=== PATIENT | male | born 1955 | race Caucasian/White ===

== ENCOUNTER 2022-06-12 12:00 | Inpatient (IN) ==
[2022-06-12] MEDS ORDERED: ACETAMINOPHEN 500 MG TAB PO STA (12:27)
[2022-06-12] MEDS ORDERED: CEFEPIME 2,000 MG/20 ML VIAL IV STA (12:27)
[2022-06-12] MEDS ORDERED: ALBUTEROL HFA 8 GM INHALER INH ONE (12:28)
[2022-06-12] MEDS ORDERED: SODIUM CHLORIDE 0.9% 1000ML 500 ML IV SCH (12:30)
--- NOTE | 2022-06-12 12:37 | Emergency Department Note ---
Impression & Plan SOB (shortness of breath), Precordial chest pain, Cough, Body aches, Elevated troponin ED Provider Note NAME: DIMAS ERVIN AGE: 66 SEX: M : 1955 ARRIVES VIA: Ambulance INFORMANT: [Patient] ED PROVIDER(S): [Tone Mi MD] CHIEF COMPLAINT: Illness HISTORY OF PRESENT ILLNESS: This HPI was obtained with the help of the translation line services. The patient is a 66-year-old male who has had 2 days of fever, a sore throat, nasal congestion and coughing. He has had some nausea and some muscle aches and some anterior chest discomfort. The pain in the chest has been mild but constant. Patient has noticed some shortness of breath especially when trying to lay flat. The patient thinks he was exposed to COVID through his son-in-law, the patient though had a recent home test run that was negative. The patient states that his temperature has been up to 102 F. He denies having any lung or heart disease previously diagnosed. He does do peritoneal dialysis. He did dialysis this morning and his fluid was very clear. He has no abdominal pain. He does not make any urine. REVIEW OF SYSTEMS: See HPI for pertinent positives and negatives. A total of ten systems were reviewed and were otherwise negative. PMHx/PSHx: See Below SOCIAL HISTORY: See Below. PHYSICAL EXAM: GENERAL: Patient is in no acute distress. HEENT: No acute trauma, normocephalic atraumatic, mucous membranes moist, no nasal congestion, no scleral icterus. NECK: No stridor, no adenopathy, no meningismus, trachea is midline. LUNGS: Breath sounds are diminished bilaterally, some scattered wheezes were heard. No respiratory distress. HEART: Without murmurs gallops or rubs, regular rate and rhythm. ABDOMEN: Soft, nontender, bowel sounds positive, no peritonitis. Peritoneal dialysis catheter noted. EXTREMITIES: No cyanosis, very mild bilateral pedal edema, full range of motion of all the joints without pain or difficulty, no signs for acute trauma. NEUROLOGIC: Oriented x 3, no acute motor or sensory deficits, no focal weakness. SKIN: No rash, no jaundice, no diaphoresis. DIFFERENTIAL DIAGNOSIS: Sepsis, UTI, pneumonia, influenza, COVID-19, RSV, metabolic abnormality, electrolyte abnormalities, cardiac sources, cellulitis, bacteremia, as well as other pathologies. EMERGENCY DEPARTMENT COURSE/PROCEDURES: ECG: Indication was chest pain and shortness of breath. The ECG shows a sinus rhythm with a PAC. The rate is 72. There is potential old inferior and old anterior infarct. There is no ST elevation. No PVCs. The QTc is 477. No old ECGs available for comparison Continuous Cardiac Monitoring: An order was placed for continuous cardiac monitoring. The monitor shows a rate of 68 with normal sinus rhythm. MEDICAL DECISION MAKING: There is a mild leukocytosis, this could be consistent with infection or the stress of his current situation. Anemia was noted but, the patient has a history of anemia. There was a normal platelet count. No coagulopathy. Creatinine was quite high as was his BUN, this is consistent with his peritoneal dialysis need. No electrolyte abnormality in need of emergent correction. No concerning liver enzyme elevation. Procalcitonin level was not not elevated. Lactic acid level was not elevated making severe sepsis less likely. Chest x- ray shows what appears to be a right-sided pneumonia, no pneumothorax. ECG showed a sinus rhythm, no ST elevation. Cardiac enzyme testing x2 does show a mild elevation however, the values appear stable. Respiratory bio fire testing was completely negative. On exam, the patient was asking for O2 supplementation to help control his breathing although, he was not noted to be hypoxic. He did seem more comfortable on a few liters of O2 supplementation. He did have diminished breath sounds on exam with some scattered wheezing. The patient was given albuterol via MDI, he was given IV saline and IV cefepime. He received IV Zithromax. He was given a DuoNeb and oral Tylenol. He was given oral hydralazine as he was due for his hydralazine BP med. He received a dose of oral aspirin. Given the pneumonia, given the elevated troponin, given his chest pain c omplaints, given his wheezing and shortness of breath, I do think a hospital stay would be warranted. I did speak with the patient and case management, the on-call hospitalist was consulted. Past Med/Surg History Medical History AV fistula NOT USABLE PER DAUGHTER Benign prostatic hyperplasia with urinary obstruction BPH (benign prostatic hyperplasia) Dialysis patient ONLY GETS PERITONEAL DIAYLSIS NOW End stage chronic kidney disease follows with Dr. Watt Hypertension Kidney transplant candidate reason for colonoscopy to get on list Nephrolithiasis Peritoneal dialysis catheter in place Peritoneal dialysis status per daughter--"in place with a hole" but currently not using Restless leg syndrome Surgical History H/O inguinal hernia repair History of colonoscopy History of cystoscopy History of thoracentesis History of tooth extraction Status post creation of arteriovenous fistula left arm Family History Other No family history of adverse response to anesthesia No significant family history Social History Smoking Status: Never smoker Second Hand Exposure: No; Hx Alcohol Use: No Hx Substance Use: No Preferred Language: Norwegian Communication Ability: Unable Communication Tools: IPad Measurement Analyst Required: Yes Beliefs That Will Affect Care: None marital status: Current Living Situation: Spouse current occupational status: employed Feels Safe at Home: Yes Assistive Devices: Glasses Allergies Allergies Allergy/AdvReac Type Severity Reaction Status Date / Time No Known Allergies Allergy Verified 06/12/22 13:03 Home Meds Home Medications Medication Instructions Recorded Confirmed amlodipine 10 mg tablet 10 mg PO DAILY 05/15/19 06/12/22 hydralazine 50 mg tablet 50 mg PO QID 08/06/19 06/12/22 epoetin beta, methoxy peg 150 150 mcg subcut UD 10/28/20 06/12/22 mcg/0.3 mL injection syringe (Mircera) ergocalciferol (vitamin D2) 1,250 1,250 mcg PO WK 10/28/20 06/12/22 mcg (50,000 unit) capsule (Vitamin D2) losartan 50 mg tablet 50 mg PO BID 10/28/20 06/12/22 cinacalcet 60 mg tablet (Sensipar) 60 mg PO DAILY 06/12/22 06/12/22 ferric citrate 210 mg iron tablet 2 tab PO TIDM 06/12/22 06/12/22 (Auryxia) metoprolol tartrate 25 mg tablet 25 mg PO BID 06/12/22 06/12/22 mupirocin 2 % topical ointment 1 applic topical UD PRN Skin 06/12/22 06/12/22 Irritation Results & Data (ED) Vital Signs Vital Signs - 24 hr 11/20/22 12:26 06/12/22 13:50 06/12/22 15:08 Temperature 36.9 C 36.9 C Temperature Source Oral Oral Pulse Rate 68 Pulse Rate [Left] 78 70 Pulse Rhythm Regular Pulse Rhythm [Left] Regular Pulse Strength Normal Pulse Strength [Left] Normal Respiratory Rate 18 18 23 Respiratory Effort / Characteristics Non-Labored Spontaneous Non-Labored Spontaneous Respiratory Depth Normal Normal Blood Pressure 177/90 H Blood Pressure [Left Arm] 178/98 H 166/112 H Blood Pressure Mean 119 Blood Pressure Mean [Left Arm] 124 130 Blood Pressure Position Lying Blood Pressure Position [Left Arm] Lying Pulse Oximetry 95 98 96 Oxygen Delivery Method Room Air Nasal Cannula Room Air Oxygen Flow Rate 2 Sepsis Recent Fever Within 48 Hours No Sepsis New/Unexplained Change in Mental Status N/A Sepsis Action Taken by Nursing No Action Required 06/12/22 15:38 06/12/22 16:32 Temperature Temperature Source Pulse Rate Pulse Rate [Left] 65 70 Pulse Rhythm Pulse Rhythm [Left] Pulse Strength Pulse Strength [Left] Respiratory Rate 16 16 Respiratory Effort / Characteristics Respiratory Depth Blood Pressure Blood Pressure [Left Arm] 178/87 H 197/101 H Blood Pressure Mean Blood Pressure Mean [Left Arm] 117 133 Blood Pressure Position Blood Pressure Position [Left Arm] Pulse Oximetry 97 98 Oxygen Delivery Method Oxygen Flow Rate Sepsis Recent Fever Within 48 Hours Sepsis New/Unexplained Change in Mental Status Sepsis Action Taken by [facility] Medications Current Medication List: was personally reviewed by me Laboratory Data Attestation: I reviewed the patient's lab results. Result diagrams: 06/12/22 13:25 06/12/22 13:25 Lab Results 06/12/22 06/12/22 06/12/22 Range/Units 12:50 13:25 13:25 WBC 12.33 H (4.8-10.8) K/ul RBC 3.43 L (4.63-6.08) M/uL Hgb 9.7 L (14.0-18.0) g/dl Hct 30.6 L (40.1-51.0) % MCV 89.2 (80.0-100.0) fL MCH 28.3 (25.0-34.0) pg MCHC 31.7 L (32.0-36.0) g/dL RDW Std Deviation 52.2 H (36.4-46.3) fL RDW Coeff of Diamond 16.1 H (11.5-14.5) % Plt Count 263 (130-400) K/uL MPV 11.2 (9.4-12.4) fL Immature Gran % (Auto) 0.4 % Neut % (Auto) 72.2 % Lymph % (Auto) 8.5 % Berks % (Auto) 9.6 % Eos % (Auto) 8.2 % Baso % (Auto) 1.1 % Neut # (Auto) 8.91 H (1.4-6.5) K/uL Lymph # (Auto) 1.05 L (1.2-3.4) K/uL Berks # (Auto) 1.18 H (0.24-0.82) K/uL Eos # (Auto) 1.01 H (0-0.50) K/uL Baso # (Auto) 0.13 (0-0.2) K/uL Immature Gran # (Auto) 0.05 H (0.00-0.02) K/uL PT (9.0-12.0) Seconds INR (0.9-1.1) APTT (21.0-31.0) Seconds PTT Ratio Sodium 141 (136-145) mmol/L Potassium 4.7 (3.5-5.1) mmol/L Chloride 98 (98-107) mmol/L Carbon Dioxide 24 (21-32) mmol/L Anion Gap 19 H (3-11) BUN 107 H (6-23) mg/dl Creatinine 16.84 H* (0.6-1.4) mg/dl Est Cr Clr Drug Dosing 4.1 ml/min Est GFR ( Amer) 3.0 ml/min Est GFR (Non-Af Amer) 2.6 ml/min BUN/Creatinine Ratio 6.4 L (10-20) Glucose 79 (70-99(Fasting)) mg/dl Lactate (0.4-2.0) mmol/L Calcium 8.9 (8.5-10.1) mg/dl Magnesium 2.0 (1.7-2.4) mg/dl Total Bilirubin 0.5 (0.2-1.0) mg/dl Direct Bilirubin 0.1 (0-0.2) mg/dl AST 16 (13-39) U/L ALT 13 (7-52) U/L Alkaline Phosphatase 52 (34-104) U/L Troponin I High Sens 189.5 H* (0-20) pg/ml Total Protein 5.7 L (6.0-8.3) gm/dl Albumin 3.4 (3.4-5.0) gm/dl Procalcitonin (0-0.5) ng/ml Adenovirus (PCR) Not Detected (NotDetected) B. pertussis DNA (PCR) Not Detected (NotDetected) B.parapertussis DNA PCR Not Detected (NotDetected) C. pneumoniae DNA (PCR) Not Detected (NotDetected) Coronavirus OC43 (PCR) Not Detected (NotDetected) Coronavirus HKU1 (PCR) Not Detected (NotDetected) Coronavirus 229E (PCR) Not Detected (NotDetected) SARS-CoV-2 (PCR) Not Detected (NotDetected) Coronavirus NL63 (PCR) Not Detected (NotDetected) Human Metapneumovir PCR Not Detected (NotDetected) Influenza Type A (PCR) Not Detected (NotDetected) Influenza Type B (PCR) Not Detected (NotDetected) M. pneumoniae (PCR) Not Detected (NotDetected) Parainfluenza 1 (PCR) Not Detected (NotDetected) Parainfluenza 2 (PCR) Not Detected (NotDetected) Parainfluenza 3 (PCR) Not Detected (NotDetected) Parainfluenza 4 (PCR) Not Detected (NotDetected) RSV (PCR) Not Detected (NotDetected) Entero/Rhino (PCR) Not Detected (NotDetected) 06/12/22 06/12/22 06/12/22 Range/Units 13:25 13:25 14:03 WBC (4.8-10.8) K/ul RBC (4.63-6.08) M/uL Hgb (14.0-18.0) g/dl Hct (40.1-51.0) % MCV (80.0-100.0) fL MCH (25.0-34.0) pg MCHC (32.0-36.0) g/dL RDW Std Deviation (36.4-46.3) fL RDW Coeff of Diamond (11.5-14.5) % Plt Count (130-400) K/uL MPV (9.4-12.4) fL Immature Gran % (Auto) % Neut % (Auto) % Lymph % (Auto) % Berks % (Auto) % Eos % (Auto) % Baso % (Auto) % Neut # (Auto) (1.4-6.5) K/uL Lymph # (Auto) (1.2-3.4) K/uL Berks # (Auto) (0.24-0.82) K/uL Eos # (Auto) (0-0.50) K/uL Baso # (Auto) (0-0.2) K/uL Immature Gran # (Auto) (0.00-0.02) K/uL PT 11.1 (9.0-12.0) Seconds INR 1.0 (0.9-1.1) APTT 26.2 (21.0-31.0) Seconds PTT Ratio 1.0 Sodium (136-145) mmol/L Potassium (3.5-5.1) mmol/L Chloride (98-107) mmol/L Carbon Dioxide (21-32) mmol/L Anion Gap (3-11) BUN (6-23) mg/dl Creatinine (0.6-1.4) mg/dl Est Cr Clr Drug Dosing ml/min Est GFR ( Amer) ml/min Est GFR (Non-Af Amer) ml/min BUN/Creatinine Ratio (10-20) Glucose (70-99(Fasting)) mg/dl Lactate 0.4 (0.4-2.0) mmol/L Calcium (8.5-10.1) mg/dl Magnesium (1.7-2.4) mg/dl Total Bilirubin (0.2-1.0) mg/dl Direct Bilirubin (0-0.2) mg/dl AST (13-39) U/L ALT (7-52) U/L Alkaline Phosphatase (34-104) U/L Troponin I High Sens (0-20) pg/ml Total Protein (6.0-8.3) gm/dl Albumin (3.4-5.0) gm/dl Procalcitonin 0.35 (0-0.5) ng/ml Adenovirus (PCR) (NotDetected) B. pertussis DNA (PCR) (NotDetected) B.parapertussis DNA PCR (NotDetected) C. pneumoniae DNA (PCR) (NotDetected) Coronavirus OC43 (PCR) (NotDetected) Coronavirus HKU1 (PCR) (NotDetected) Coronavirus 229E (PCR) (NotDetected) SARS-CoV-2 (PCR) (NotDetected) Coronavirus NL63 (PCR) (NotDetected) Human Metapneumovir PCR (NotDetected) Influenza Type A (PCR) (NotDetected) Influenza Type B (PCR) (NotDetected) M. pneumoniae (PCR) (NotDetected) Parainfluenza 1 (PCR) (NotDetected) Parainfluenza 2 (PCR) (NotDetected) Parainfluenza 3 (PCR) (NotDetected) Parainfluenza 4 (PCR) (NotDetected) RSV (PCR) (NotDetected) Entero/Rhino (PCR) (NotDetected) 06/12/22 Range/Units 15:25 WBC (4.8-10.8) K/ul RBC (4.63-6.08) M/uL Hgb (14.0-18.0) g/dl Hct (40.1-51.0) % MCV (80.0-100.0) fL MCH (25.0-34.0) pg MCHC (32.0-36.0) g/dL RDW Std Deviation (36.4-46.3) fL RDW Coeff of Diamond (11.5-14.5) % Plt Count (130-400) K/uL MPV (9.4-12.4) fL Immature Gran % (Auto) % Neut % (Auto) % Lymph % (Auto) % Berks % (Auto) % Eos % (Auto) % Baso % (Auto) % Neut # (Auto) (1.4-6.5) K/uL Lymph # (Auto) (1.2-3.4) K/uL Berks # (Auto) (0.24-0.82) K/uL Eos # (Auto) (0-0.50) K/uL Baso # (Auto) (0-0.2) K/uL Immature Gran # (Auto) (0.00-0.02) K/uL PT (9.0-12.0) Seconds INR (0.9-1.1) APTT (21.0-31.0) Seconds PTT Ratio Sodium (136-145) mmol/L Potassium (3.5-5.1) mmol/L Chloride (98-107) mmol/L Carbon Dioxide (21-32) mmol/L Anion Gap (3-11) BUN (6-23) mg/dl Creatinine (0.6-1.4) mg/dl Est Cr Clr Drug Dosing ml/min Est GFR ( Amer) ml/min Est GFR (Non-Af Amer) ml/min BUN/Creatinine Ratio (10-20) Glucose (70-99(Fasting)) mg/dl Lactate (0.4-2.0) mmol/L Calcium (8.5-10.1) mg/dl Magnesium (1.7-2.4) mg/dl Total Bilirubin (0.2-1.0) mg/dl Direct Bilirubin (0-0.2) mg/dl AST (13-39) U/L ALT (7-52) U/L Alkaline Phosphatase (34-104) U/L Troponin I High Sens 173.3 H* (0-20) pg/ml Total Protein (6.0-8.3) gm/dl Albumin (3.4-5.0) gm/dl Procalcitonin (0-0.5) ng/ml Adenovirus (PCR) (NotDetected) B. pertussis DNA (PCR) (NotDetected) B.parapertussis DNA PCR (NotDetected) C. pneumoniae DNA (PCR) (NotDetected) Coronavirus OC43 (PCR) (NotDetected) Coronavirus HKU1 (PCR) (NotDetected) Coronavirus 229E (PCR) (NotDetected) SARS-CoV-2 (PCR) (NotDetected) Coronavirus NL63 (PCR) (NotDetected) Human Metapneumovir PCR (NotDetected) Influenza Type A (PCR) (NotDetected) Influenza Type B (PCR) (NotDetected) M. pneumoniae (PCR) (NotDetected) Parainfluenza 1 (PCR) (NotDetected) Parainfluenza 2 (PCR) (NotDetected) Parainfluenza 3 (PCR) (NotDetected) Parainfluenza 4 (PCR) (NotDetected) RSV (PCR) (NotDetected) Entero/Rhino (PCR) (NotDetected) Administered Medications Discontinued Medications Acetaminophen (Acetaminophen 500 Mg Tab) 1,000 mg PO NOW STA Stop: 06/12/22 12:28 Last Admin: 06/12/22 13:29 Dose: 1,000 mg Documented By: CLAUDIA Albuterol (Albuterol Hfa 8 Gm Inhaler) 2 puffs INH NOW ONE Stop: 06/12/22 12:29 Last Admin: 06/12/22 13:30 Dose: 2 puffs Documented By: CLAUDIA Albuterol (Albut/Ipratrop 3mg/0.5mg Neb 3 Ml Vial) 3 ml NEB NOW STA; Protocol Stop: 06/12/22 16:02 Last Admin: 06/12/22 16:10 Dose: 3 ml Documented By: EMERALD Hydralazine HCl (Hydralazine Tab 50 Mg Tab) 50 mg PO NOW STA Stop: 06/12/22 15:27 Last Admin: 06/12/22 16:10 Dose: 50 mg Documented By: EMERALD Sodium Chloride (Nss 1000ml) 500 mls @ 999 mls/hr IV .Q31M MYLES Stop: 06/12/22 13:00 Last Infusion: 06/12/22 14:27 Dose: 0 mls/hr Documented By: Admin: 06/12/22 13:30 Dose: 999 mls/hr Documented By: CLAUDIA Cefepime HCl (Maxipime) 2,000 mg in 20 mls @ 5 mls/min IV NOW STA; Protocol Stop: 06/12/22 12:30 Last Admin: 06/12/22 14:24 Dose: 5 mls/min Documented By: CLAUDIA Imaging Data Radiologist's Impression: Chest X-Ray 06/12/22 12:27 SINGLE VIEW CHEST CLINICAL HISTORY: Sepsis. FINDINGS: An AP, portable, upright chest radiograph is compared to study dated 09/24/2019. The heart is enlarged. There is pulmonary vascular congestion. There are slightly asymmetric right perihilar/ infrahilar airspace opacities. Linear atelectasis is seen at the left lung base. No large pleural effusion or pneumothorax is seen. The skeletal structures are osteopenic. The bony thorax is grossly intact. IMPRESSION: 1. Cardiomegaly with pulmonary vascular congestion. 2. There are asymmetric right perihilar/infrahilar airspace opacities. This could represent atelectasis, mild edema, and/or an infectious/inflammatory pneumonitis. Clinical correlation will be required and radiographic follow-up to resolution is recommended ACT 112: Negative or not required by law. Electronically signed by: Tone Mccain M.D. 06/12/2022 1:54 PM Discharge Plan Visit Data Chief Complaint: Illness ED Provider: Tone Mi Discharge Problem: SOB (shortness of breath), Precordial chest pain, Cough, Body aches, Elevated troponin Patient Disposition: Admitted As Inpatient Condition: Fair Forms Stand Alone Forms: My [facility] [employer] Prescriptions Prescriptions: No Action amlodipine 10 mg tablet 10 mg PO DAILY hydralazine 50 mg Tablet 50 mg PO QID losartan 50 mg Tablet 50 mg PO BID ergocalciferol (vitamin D2) [Vitamin D2] 1,250 mcg (50,000 unit) Capsule 1,250 mcg PO WK Mircera 150 mcg/0.3 mL Syringe 150 mcg subcut UD Label Comments: GETS EVERY 2 WEEKS mupirocin 2 % ointment 1 applic TOPICAL UD PRN (Reason: Skin Irritation) metoprolol tartrate 25 mg tablet 25 mg PO BID cinacalcet [Sensipar] 60 mg tablet 60 mg PO DAILY Auryxia 210 mg iron tablet 2 tab PO TIDM Referrals Referrals: Mariel Walter DO [Primary Care Provider] - : Cough Qualifiers: Cough type: acute Qualified Code(s): R05.1 - Acute cough
[2022-06-12 13:38] LABS: Basophils # (auto) 0.13 K/uL (0-0.2); Basophils % (auto) 1.1 %; Eosinophils # (auto) 1.01 K/uL (0-0.50); Eosinophils % (auto) 8.2 %; Hematocrit (blood only) 30.6 % (40.1-51.0); Hemoglobin 9.7 g/dl (14.0-18.0); Immature Granulocytes # (auto) 0.05 K/uL (0.00-0.02); Immature Granulocytes % (auto) 0.4 %; Lymphocytes # (auto) 1.05 K/uL (1.2-3.4); Lymphocytes % (auto) 8.5 %; Mean Corpuscular Hemoglobin 28.3 pg (25.0-34.0); Mean Corpuscular Hgb Conc 31.7 g/dL (32.0-36.0); Mean Corpuscular Volume 89.2 fL (80.0-100.0); Mean Platelet Volume 11.2 fL (9.4-12.4); Monocytes # (auto) 1.18 K/uL (0.24-0.82); Monocytes % (auto) 9.6 %; Neutrophils # (auto) 8.91 K/uL (1.4-6.5); Neutrophils % (auto) 72.2 %; Platelet Count 263 K/uL (130-400); RDW Coefficient of Variation 16.1 % (11.5-14.5); RDW Standard Deviation 52.2 fL (36.4-46.3); Red Blood Count 3.43 M/uL (4.63-6.08); White Blood Count 12.33 K/ul (4.8-10.8)
[2022-06-12 13:49] LABS: Partial Thromboplastin Time 26.2 Seconds (21.0-31.0); Prothrombin Time 11.1 Seconds (9.0-12.0)
--- NOTE | 2022-06-12 13:55 | XRay Report ---
SINGLE VIEW CHEST CLINICAL HISTORY: Sepsis. FINDINGS: An AP, portable, upright chest radiograph is compared to study dated 09/24/2019. The heart is enlarged. There is pulmonary vascular congestion. There are slightly asymmetric right perihilar/ inf rahilar airspace opacities. Linear atelectasis is seen at the left lung base. No large pleural effusi on or pneumothorax is seen. The skeletal structures are osteopenic. The bony thorax is grossly intact . IMPRESSION: 1. Cardiomegaly with pulmonary vascular congestion. 2. There are asymmetric right perihilar/infrahilar airspace opacities. This could represent atelectas is, mild edema, and/or an infectious/inflammatory pneumonitis. Clinical correlation will be required and radiographic follow-up to resolution is recommended ACT 112: Negative or not required by law. Electronically signed by: Tone Mccain M.D. 06/12/2022 1:54 PM
[2022-06-12 14:01] LABS: Albumin Level 3.4 gm/dl (3.4-5.0); BUN Creatinine Ratio 6.4 (10-20); Bilirubin Direct 0.1 mg/dl (0-0.2); Bilirubin,Total 0.5 mg/dl (0.2-1.0); Calcium 8.9 mg/dl (8.5-10.1); Creatinine Clr Calc Pharmacy 4.1 ml/min; Est GFR (Non-African American) 2.6 ml/min; Potassium 4.7 mmol/L (3.5-5.1); Total Protein 5.7 gm/dl (6.0-8.3)
[2022-06-12 14:40] LABS: Troponin I High Sensitivity 189.5 pg/ml (0-20)
[2022-06-12 15:24] LABS: Adenovirus PCR Not Detected (NotDetected); Bordetella parapertussis PCR Not Detected (NotDetected); Bordetella pertussis PCR Not Detected (NotDetected); Chlamydia pneumoniae PCR Not Detected (NotDetected); Coronavirus 229E PCR Not Detected (NotDetected); Coronavirus CoV-2 (COVID19)PCR Not Detected (NotDetected); Coronavirus HKU1 PCR Not Detected (NotDetected); Coronavirus NL63 PCR Not Detected (NotDetected); Coronavirus OC43PCR Not Detected (NotDetected); Human Metapneumovirus PCR Not Detected (NotDetected); Influenza A PCR Not Detected (NotDetected); Influenza B PCR Not Detected (NotDetected); Mycoplasma pneumoniae PCR Not Detected (NotDetected); Parainfluenza Virus 1 PCR Not Detected (NotDetected); Parainfluenza Virus 2 PCR Not Detected (NotDetected); Parainfluenza Virus 3 PCR Not Detected (NotDetected); Parainfluenza Virus 4 PCR Not Detected (NotDetected); Respiratory Syncytial VirusPCR Not Detected (NotDetected); Rhinovirus/Enterovirus PCR Not Detected (NotDetected)
[2022-06-12] MEDS ORDERED: hydrALAZINE TAB 50 MG TAB PO STA (15:26)
[2022-06-12] MEDS ORDERED: ALBUT/IPRATROP 3MG/0.5MG NEB 3 ML VIAL NEB STA (16:01)
[2022-06-12] MEDS ORDERED: AZITHROMYCIN 500 MG in DEXTROSE 5% 250 ML IV STA (16:41)
[2022-06-12] MEDS ORDERED: ASPIRIN CHEW 324 MG PO STA (17:12)
--- NOTE | 2022-06-12 18:54 | History & Physical Report ---
Date of Service June 12, 2022 Assessment & Plan (1) Pneumonia: Plan: 66-year-old male with history of end-stage renal disease on peritoneal dialysis, hypertension, etc. presenting with shortness of breath, cough, x2 days RIGHT LOWER LOBE PNEUMONIA CT chest ordered Nasal MRSA Repeat blood cultures Sputum culture Cefepime plus doxycycline Albuterol 4 times daily Atypical chest pain Troponin elevation Troponin level 189, 2 hours later 173 EKG no signs of acute ischemia or infarct Check third level of troponin at 9 PM Check EKG in the morning Check echocardiogram Doubt ACS, likely secondary to persistent cough, elevated blood pressure Will monitor closely in PCU Hypertension Continue usual blood pressure medicines including amlodipine, metoprolol, losartan, hydralazine, clonidine patch End-stage renal disease on peritoneal dialysis Patient reports he can perform his own peritoneal dialysis Next session tomorrow morning Will consult nephrology service Full code as per patient DVT prophylaxis SCDs for now Disposition Dissipate discharge to home medically Admission and Anticipated Discharge Date Admission Date: June 12, 2022 History of Present Illness Chief Complaint: Cough, shortness of breath x2 days Primary Care Provider: Mariel Walter, 66-year-old male with history of end-stage renal disease on peritoneal dialysis, hypertension, other problems noted below presenting with cough and shortness of breath x2 days. Patient is Lebanese-speaking, history obtained with translation services. Patient reports 2-day history of fever, cough, shortness of breath associated with sore throat and nasal congestion. Also reports generalized chest wall discomfort, constant, worse with movement. Worsening of symptoms for reconsult to the ED. At the ER, patient was received with O2 saturation more than 90%, elevated blood pressure. Chest x-ray showing right lower lobe pneumonia. EKG did not show any signs of acute infarct, troponin was 189, and on repeat 2 hours later was 173.3. He was given cefepime plus azithromycin, duo nebs, hydralazine p.o. and aspirin p.o. On exam, patient seen resting in bed sitting up, on 2 L of oxygen by nasal cannula, comfortable, not in distress, speaking in sentences with no effort. States he is starting to feel better since admission. Breathing is improving, denies active chest pain on exam No palpitations, dizziness, nausea vomiting, abdominal pain. Patient reports he does his own peritoneal dialysis at home will be able to perform it while in hospital. No other symptoms noted Allergies Allergy/AdvReac Type Severity Reaction Status Date / Time No Known Allergies Allergy Verified 06/12/22 13:03 Home Medications Medication Instructions Recorded Confirmed Type amlodipine 10 mg tablet 10 mg PO DAILY 05/15/19 06/12/22 History hydralazine 50 mg tablet 50 mg PO QID 08/06/19 06/12/22 History epoetin beta, methoxy peg 150 150 mcg subcut UD 10/28/20 06/12/22 History mcg/0.3 mL injection syringe (Mircera) ergocalciferol (vitamin D2) 1,250 1,250 mcg PO WK 10/28/20 06/12/22 History mcg (50,000 unit) capsule (Vitamin D2) losartan 50 mg tablet 50 mg PO BID 10/28/20 06/12/22 History allopurinol 100 mg tablet 100 mg PO DAILY 06/12/22 06/12/22 History carvedilol 6.25 mg tablet 6.25 mg PO BID 06/12/22 06/12/22 History cinacalcet 60 mg tablet (Sensipar) 60 mg PO DAILY 06/12/22 06/12/22 History clonidine 0.2 mg/24 hr weekly 0.2 mg transdermal WK 06/12/22 06/12/22 History transdermal patch ferric citrate 210 mg iron tablet 2 tab PO TIDM 06/12/22 06/12/22 History (Auryxia) metoprolol tartrate 25 mg tablet 25 mg PO BID 06/12/22 06/12/22 History mupirocin 2 % topical ointment 1 applic topical UD PRN Skin 06/12/22 06/12/22 History Irritation Past Med/Surg History Medical History AV fistula NOT USABLE PER DAUGHTER Benign prostatic hyperplasia with urinary obstruction BPH (benign prostatic hyperplasia) Dialysis patient ONLY GETS PERITONEAL DIAYLSIS NOW End stage chronic kidney disease follows with Dr. Watt Hypertension Kidney transplant candidate reason for colonoscopy to get on list Nephrolithiasis Peritoneal dialysis catheter in place Peritoneal dialysis status per daughter--"in place with a hole" but currently not using Restless leg syndrome Surgical History H/O inguinal hernia repair History of colonoscopy History of cystoscopy History of thoracentesis History of tooth extraction Status post creation of arteriovenous fistula left arm Family History Other No family history of adverse response to anesthesia No significant family history Social History Smoking Status: Never smoker Second Hand Exposure: No; Hx Alcohol Use: No Hx Substance Use: No Preferred Language: Lebanese Communication Ability: Unable Communication Tools: IPad Linen Folder Required: Yes Beliefs That Will Affect Care: None marital status: Current Living Situation: Spouse current occupational status: employed Feels Safe at Home: Yes Assistive Devices: Glasses Review of Systems Review of Systems: all noted and negative except for above Physical Exam Physical Exam: General- oriented x 3, not in distress, speaks in sentences with no effort or accessory muscle use Head- atraumatic Eyes- PERRL, EOMI, anicteric ENT- oropharynx clear Neck- supple, no JVD, no adenopathy, no thyromegaly; carotids +2/2, no bruits appreciated Lungs-positive crackles bilateral lung bases, no wheezing, good air entry bilaterally Heart- normal rate, regular rhythm; no murmur, no gallop, no rub appreciated Abdomen- normal bowel sounds, nondistended, soft, nontender, no masses or hepa tosplenomegaly Extremities- no pretibial edema, no calf tenderness; peripheral pulses intact Positive AV fistula on the left arm Neuro- alert, oriented x 3; CN 2-12 grossly intact; motor 5/5 bilater ally;sensation 100% on all extremities; no other gross focal neurologic deficits Skin- warm & dry Results & Data Results & Data ([facility]) Vital Signs (Past 12 Hours) Vital Signs Temp Pulse Pulse Resp BP BP Pulse Ox 06/12/22 18:03 89 19 97 06/12/22 17:23 79 16 98 06/12/22 17:00 158/91 H 06/12/22 16:32 70 16 197/101 H 98 06/12/22 15:38 65 16 178/87 H 97 06/12/22 15:08 70 23 166/112 H 96 06/12/22 13:50 36.9 C 78 18 178/98 H 98 06/12/22 12:26 36.9 C 68 18 177/90 H 95 O2 Del Method O2 Flow Rate 06/12/22 18:03 Room Air 06/12/22 17:23 Nasal Cannula 2 06/12/22 17:00 06/12/22 16:32 06/12/22 15:38 06/12/22 15:08 Room Air 06/12/22 13:50 Nasal Cannula 2 06/12/22 12:26 Room Air all noted and reviewed including below Code Status & VTE Plan VTE Prophylaxis Plan VTE Prophylaxis will be ordered: Yes
[2022-06-12] MEDS ORDERED: ERGOCALCIFEROL 50,000 UNITS 1250 MCG CAP PO SCH (20:00)
[2022-06-12] MEDS: LEVALBUTEROL 1.25MG/0.5ML NEB NEB SCH ×2 (20:18→23:54)
[2022-06-12] MEDS ORDERED: METOPROLOL TARTRATE 25 MG TAB PO SCH (21:00)
[2022-06-12] MEDS: hydrALAZINE TAB 50 MG TAB PO SCH (21:08)
[2022-06-12] MEDS: LOSARTAN POTASSIUM 50 MG TAB PO SCH (21:08)
[2022-06-12] MEDS ORDERED: ACETAMINOPHEN 325 MG TAB PO PRN (21:29)
[2022-06-12] MEDS ORDERED: METOPROLOL TARTRATE 25 MG TAB PO STA (23:30)
[2022-06-12] MEDS: CHECK CLONIDINE PATCH PLACEMENT SCH (23:40)
[2022-06-13] MEDS ORDERED: amLODIPine BESYLATE 5 MG TAB PO SCH ×2 (01:00→09:00)
[2022-06-13] MEDS: LEVALBUTEROL 1.25MG/0.5ML NEB NEB SCH ×3 (07:02→20:04)
[2022-06-13 08:00] LABS: Basophils # (auto) 0.12 K/uL (0-0.2); Basophils % (auto) 0.8 %; Eosinophils # (auto) 1.02 K/uL (0-0.50); Hematocrit (blood only) 28.8 % (40.1-51.0); Hemoglobin 9.2 g/dl (14.0-18.0); Immature Granulocytes # (auto) 0.08 K/uL (0.00-0.02); Immature Granulocytes % (auto) 0.5 %; Lymphocytes # (auto) 1.26 K/uL (1.2-3.4); Lymphocytes % (auto) 8.6 %; Mean Corpuscular Hemoglobin 28.2 pg (25.0-34.0); Mean Corpuscular Hgb Conc 31.9 g/dL (32.0-36.0); Mean Corpuscular Volume 88.3 fL (80.0-100.0); Monocytes # (auto) 1.01 K/uL (0.24-0.82); Monocytes % (auto) 6.9 %; Neutrophils # (auto) 11.16 K/uL (1.4-6.5); Neutrophils % (auto) 76.2 %; Platelet Count 260 K/uL (130-400); RDW Coefficient of Variation 16.5 % (11.5-14.5); Red Blood Count 3.26 M/uL (4.63-6.08); White Blood Count 14.65 K/ul (4.8-10.8)
[2022-06-13 08:34] LABS: BUN Creatinine Ratio 6.2 (10-20); Calcium 8.8 mg/dl (8.5-10.1); Creatinine Clr Calc Pharmacy 3.8 ml/min; Est GFR (African American) 2.6 ml/min; Est GFR (Non-African American) 2.3 ml/min; Potassium 5.2 mmol/L (3.5-5.1)
[2022-06-13] MEDS: CINACALCET HCL 30 MG TAB PO SCH (08:52)
[2022-06-13] MEDS: allopurinoL 100 MG TAB PO SCH (08:52)
[2022-06-13] MEDS: DOXYCYCLINE HYCLATE 100 MG in DEXTROSE 5% 100 ML IV SCH ×2 (08:52→21:01)
[2022-06-13] MEDS: hydrALAZINE TAB 50 MG TAB PO SCH ×4 (08:53→20:30)
[2022-06-13] MEDS: CHECK CLONIDINE PATCH PLACEMENT SCH ×2 (08:53→14:30)
[2022-06-13] MEDS: LOSARTAN POTASSIUM 50 MG TAB PO SCH ×2 (08:53→20:30)
[2022-06-13] MEDS: METOPROLOL TARTRATE 50 MG TAB PO SCH ×2 (08:53→20:30)
[2022-06-13] MEDS ORDERED: SODIUM CHLORIDE 0.65% NA SOLN 45 ML (OCEAN) ONE (09:44)
--- NOTE | 2022-06-13 10:29 | CT Scan Report ---
CT OF THE CHEST WITHOUT IV CONTRAST CLINICAL HISTORY: Pneumonia. Shortness of breath. COMPARISON STUDY: Chest radiograph September 24, 2019 and June 12, 2022. CT DOSE: 327.80 mGy.cm TECHNIQUE: Axial images of the chest were obtained without IV contrast. Images were reviewed in the axial, sagittal, and coronal planes. IV contrast was not administered for this examination. Automat ed exposure control was utilized for the study. A dose lowering technique was utilized adhering to t he principles of ALARA. FINDINGS: No enlarged axillary, mediastinal or hilar lymph nodes are present. There is moderate cardiomegaly an d coronary artery calcification. Mild dilatation of the central pulmonary arteries is present. There are trace bilateral pleural effusions. There is no pneumothorax. Note is made of a lobulated solid ri ght upper lobe nodule on image 65 of 276. This measures 1.2 cm. Interlobular septal thickening is not ed within the lungs. There are associated groundglass opacities. No definite consolidation is evident to suggest pneumonia. No acute fracture within the visualized bony thorax is noted. There is trace p erihepatic ascites. Mild anasarca. IMPRESSION: 1. Interlobular septal thickening consistent with interstitial pulmonary edema. Groundglass opacities favor alveolar pulmonary edema. A superimposed infectious process could appear similar although is c onsidered less likely. Cardiomegaly. Trace bilateral pleural effusions. 2. Lobulated 1.2 cm solid right upper lobe nodule. This is indeterminate. A chest CT in 6 months is r ecommended. ACT 112: Positive. There are findings on this exam that require communication between the performing entity and the patient following Patient Test Result Information Act ([place] Act 112) guidelines. Electronically signed by: Sivakumar Renee M.D. 06/13/2022 10:27 AM
--- NOTE | 2022-06-13 10:37 | Consultation Report ---
NEPHROLOGY CONSULTATION NOTE DATE OF SERVICE: 06/13/2022 REASON FOR CONSULTATION: Dialysis patient admitted with shortness of breath. HISTORY OF PRESENT ILLNESS: The patient is a 66-year-old male who speaks predominantly Solomon Islander, presented to the hospital yesterday with 2 days' history of cough, shortness of breath for the last few days. He was also having some fever, chills, sore throat and some nasal congestion. In the Emergency Department, the patient was somewhat hypoxic with oxygen saturation of around 90%. Chest x-ray showed right lower lobe pneumonia as well as slight CHF. He gets peritoneal dialysis at home. At this point, he does not make any urine and his peritoneal dialysis prescription is quite high. He gets 3 manual exchanges as well as 10 hours' of overnight cycler using mostly 2.5% solution. He has been on dialysis for about 4 years now through a clinic in [place]. At this time, patient is on room air, but his oxygen saturation is only about 90%-92%. He is able to give me a detailed account of his problem. ALLERGIES: None. MEDICATIONS: Home medication list was reviewed in detail and is as per the reconciliation list. PAST MEDICAL HISTORY: Includes AV fistula, BPH with urinary obstruction, ESRD, on peritoneal dialysis at home, hypertension, kidney transplant candidate, history of kidney stone. PAST SURGICAL HISTORY: Includes inguinal hernia repair, colonoscopy, cystoscopy, thoracocentesis, tooth extraction, status post creation of AV fistula in the left arm. FAMILY HISTORY: Negative for renal disease or dialysis. SOCIAL HISTORY: Never smoked. He speaks [place] Islander. He is and lives with his spouse. He is still working. REVIEW OF SYSTEMS: As detailed in HPI; unless stated otherwise, 12 systems reviewed and negative. Positive review of system includes cough, fever, shortness of breath, chills, sore throat and congestion. PHYSICAL EXAMINATION: GENERAL: A middle-aged white male who is awake, alert, oriented x3. He is not in any respiratory distress. We used translation service for communication, but he can also understand most of the Peruvian. VITAL SIGNS: Blood pressure is 179/85, pulse rate 86, temperature 36.7, and 90% on room air. HEENT: Mucous membrane is moist. NECK: Supple. No jugular venous distention. CHEST: Bilateral decreased breath sound at the bases, especially in the right, otherwise clear. CARDIOVASCULAR: S1 and S2 regular. ABDOMEN: Soft, nontender. EXTREMITIES: Show no edema. He does have an AV fistula in his left arm with good bruit and thrill. NEUROLOGIC: Awake, alert, oriented x3, normal speech. Moving all 4 extremities. SKIN: Shows no rash. LABORATORY TEST: Chest x-ray shows asymmetric right perihilar and infrahilar airspace opacities concerning for pneumonia. There is also some pulmonary vascular congestion. Hemoglobin is 9.2, WBC count 14,000, platelet count 260. Creatinine is 18.4, BUN is 115. Sodium 139, potassium 5.2, chloride 97, calcium 8.8. Troponin is elevated. ASSESSMENT AND PLAN: A 66-year-old male with end-stage renal disease, on chronic peritoneal dialysis with high-dose prescription as he does not have any residual renal function at this time. Admitted with shortness of breath, fever, cough, sore throat and most likely pneumonia in his right lung. I have been consulted for dialysis management. End-stage renal disease: He gets manual as well as cycler peritoneal dialysis at home. He does not have any residual renal function and is on a fairly high dose peritoneal dialysis prescription, but despite that, his current numbers are pretty high with a creatinine of 18.5 and a BUN of 115, which signifies inadequate dialysis at this point. He wants to do peritoneal dialysis, which we will do today. Given inpatient setting with significant nursing staff issues, the prescriptions in the hospital will be different and will be coordinated with my dialysis nurse, but we will be doing very aggressive peritoneal dialysis regimen as much as possible. Also with the Holiday schedule, we might even have to do hemodialysis one time in the coming days. He does not appear to be in severe fluid overload, although he might have some pulmonary congestion and his blood pressure is high, so we will try to take a little bit more fluid. Thank you very much for the consult. Job ID: [id number] BRENDA
[2022-06-13] MEDS ORDERED: OXYMETAZOLINE 0.05% 30 ML BTL ONE (11:02)
[2022-06-13] MEDS ORDERED: ONDANSETRON INJ 2 MG/ML 2 ML VIAL IV PRN (12:46)
[2022-06-13] MEDS: CEFEPIME 1,000 MG in SYRINGE 0 ML IV SCH (13:28)
--- NOTE | 2022-06-13 15:57 | Hospitalist Progress Note ---
Date of Service June 13, 2022 Assessment & Plan (1) Pneumonia: Plan: 66-year-old male with history of end-stage renal disease on peritoneal dialysis, hypertension, etc. presenting with shortness of breath, cough, x2 days BILATERAL PNEUMONIA, possible pulmonary edema CT chest: 1. Interlobular septal thickening consistent with interstitial pulmonary edema. Groundglass opacities favor alveolar pulmonary edema. A superimposed infectious process could appear similar although is considered less likely. Cardiomegaly. Trace bilateral pleural effusions. 2. Lobulated 1.2 cm solid right upper lobe nodule. This is indeterminate. A chest CT in 6 months is recommended. Nasal MRSA: Negative Blood cultures: Pending Sputum culture: Pending collection Off oxygen supplement today Seems to be clinically improving Continue with Cefepime plus doxycycline Albuterol 4 times daily Peritoneal dialysis per nephrology service ATYPICAL CHEST PAIN, ACUTE CORONARY SYNDROME RULED OUT Troponin elevation Troponin level 189, 2 hours later 173, 6 hours later 171 EKG no signs of acute ischemia or infarct Echocardiogram: No regional wall motion abnormality, moderate concentric LVH, EF 60 to 65%, grade 1 diastolic dysfunction Chest pain resolved HYPERTENSION Continue usual blood pressure medicines including amlodipine, metoprolol, losartan, hydralazine, clonidine patch Toprol increased to 50 mg twice daily Monitor closely END-STAGE RENAL DISEASE ON PERITONEAL DIALYSIS Nephrology service consulted For aggressive peritoneal dialysis today EPISTAXIS Right nostril Afrin nasal spray ordered Full code as per patient DVT prophylaxis SCDs for now Disposition Anticipated discharge to home when medically stable Admission and Anticipated Discharge Date Admission Date: June 12, 2022 Subjective Follow-up for pneumonia, hypoxia, etc. Translation service via smart phone lacie utilized Seen resting in bed comfortable, at bedside chair Off oxygen Had epistaxis of the right nostril morning States he feels improved compared to yesterday Breathing is improving Still having some cough Chest pain resolved No fevers or chills No other symptom Review of Systems Review of Systems: all noted and negative except for above Physical Exam Physical Exam: General- oriented x 3, not in distress, speaks in sentences with no effort or accessory muscle use Eyes- anicteric Neck- no JVD Lungs-positive mild rhonchi bilaterally, no wheezing Heart- normal rate, regular rhythm; no murmurs Abdomen- normal bowel sounds, nondistended, soft, no tenderness Extremities- no pretibial edema, no calf tenderness Neuro- alert, oriented x 3; no gross focal neurologic deficits Skin- warm & dry Results & Data Results & Data ([facility]) Vital Signs (Past 12 Hours) Vital Signs Temp Pulse Pulse Resp BP Pulse Ox Pulse Ox 06/13/22 13:10 71 18 94 06/13/22 12:27 95 06/13/22 11:44 36.5 C 86 17 165/84 H 93 06/13/22 07:00 70 06/13/22 07:57 36.7 C 86 17 179/85 H 90 06/13/22 07:06 74 16 96 O2 Del Method O2 Del Method O2 Flow Rate 06/13/22 13:10 Room Air 06/13/22 12:27 Room Air 06/13/22 11:44 Room Air 06/13/22 07:00 06/13/22 07:57 Room Air 06/13/22 07:06 Nasal Cannula 1.5 all noted and reviewed including below
--- NOTE | 2022-06-13 22:56 | Communication Note ---
Date of Service: June 13, 2022 Made aware by RN of uncontrolled blood pressure. SBP 200s. Cardiac rate 60s as per RN Patient with intermittent epistaxis. No headache. AP Hypertensive urgency Change Lopressor to Coreg. Will relay to AM provider.
[2022-06-13] MEDS ORDERED: carvediloL 3.125 MG TAB PO SCH (23:00)
[2022-06-14] MEDS: LEVALBUTEROL 1.25MG/0.5ML NEB NEB SCH ×2 (00:03→07:06)
[2022-06-14] MEDS: CHECK CLONIDINE PATCH PLACEMENT SCH ×4 (00:18→23:52)
[2022-06-14] MEDS ORDERED: OXYMETAZOLINE 0.05% 30 ML BTL STA (03:20)
[2022-06-14] MEDS: amLODIPine BESYLATE 5 MG TAB PO SCH (04:15)
--- NOTE | 2022-06-14 06:02 | Electrocardiogram Report ---
Test Reason : Blood Pressure : / mmHG Vent. Rate : 072 BPM Atrial Rate : 072 BPM P-R Int : 170 ms QRS Dur : 088 ms QT Int : 436 ms P-R-T Axes : 070 -13 082 degrees QTc Int : 477 ms Sinus rhythm with Premature atrial complexes Possible Left atrial enlargement Possible Inferior infarct , age undetermined Anterior infarct , age undetermined Abnormal ECG No previous ECGs available Confirmed by Víctor Sosa ([id number]) on 06/14/2022 6:02:42 AM Referred By: REFERRED SELF Confirmed By:Víctor Sosa
[2022-06-14] MEDS ORDERED: OXYMETAZOLINE 0.05% 30 ML BTL ONE (08:18)
[2022-06-14] MEDS: CINACALCET HCL 30 MG TAB PO SCH (08:23)
[2022-06-14] MEDS: hydrALAZINE TAB 50 MG TAB PO SCH ×4 (08:23→20:41)
[2022-06-14] MEDS ORDERED: LEVALBUTEROL HCL 1.25 MG/3 ML NEB NEB PRN (08:24)
[2022-06-14] MEDS: LOSARTAN POTASSIUM 50 MG TAB PO SCH ×2 (08:24→20:42)
[2022-06-14] MEDS: allopurinoL 100 MG TAB PO SCH (08:25)
[2022-06-14 08:45] LABS: Basophils # (auto) 0.06 K/uL (0-0.2); Basophils % (auto) 0.5 %; Eosinophils # (auto) 1.05 K/uL (0-0.50); Eosinophils % (auto) 8.9 %; Hematocrit (blood only) 27.9 % (40.1-51.0); Immature Granulocytes # (auto) 0.06 K/uL (0.00-0.02); Immature Granulocytes % (auto) 0.5 %; Lymphocytes % (auto) 5.1 %; Mean Corpuscular Hemoglobin 28.7 pg (25.0-34.0); Mean Corpuscular Hgb Conc 32.3 g/dL (32.0-36.0); Mean Corpuscular Volume 88.9 fL (80.0-100.0); Mean Platelet Volume 9.9 fL (9.4-12.4); Monocytes # (auto) 0.86 K/uL (0.24-0.82); Monocytes % (auto) 7.3 %; Neutrophils # (auto) 9.12 K/uL (1.4-6.5); Neutrophils % (auto) 77.7 %; Platelet Count 198 K/uL (130-400); RDW Coefficient of Variation 16.4 % (11.5-14.5); RDW Standard Deviation 52.8 fL (36.4-46.3); Red Blood Count 3.14 M/uL (4.63-6.08); White Blood Count 11.75 K/ul (4.8-10.8)
[2022-06-14] MEDS: DOXYCYCLINE HYCLATE 100 MG in DEXTROSE 5% 100 ML IV SCH ×2 (08:57→20:59)
[2022-06-14 09:14] LABS: BUN Creatinine Ratio 5.9 (10-20); Calcium 8.1 mg/dl (8.5-10.1); Est GFR (African American) 2.8 ml/min; Est GFR (Non-African American) 2.4 ml/min; Potassium 4.5 mmol/L (3.5-5.1)
--- NOTE | 2022-06-14 10:45 | Nephrology Progress Note ---
Date of Service June 14, 2022 Assessment & Plan Admission and Anticipated Discharge Date Admission Date: June 12, 2022 Subjective S--has high BP and Also has some nose bleed. Seen during PD--Overnight long cycler. PHYSICAL EXAMINATION: GENERAL: A middle-aged white male who is awake, alert, oriented x3. He is not in any respiratory distress. We used translation service for communication, but he can also understand most of the Irish. HEENT: Mucous membrane is moist. NECK: Supple. No jugular venous distention. CHEST: Bilateral decreased breath sound at the bases, especially in the right, otherwise clear. CARDIOVASCULAR: S1 and S2 regular. ABDOMEN: Soft, nontender. EXTREMITIES: Show no edema. He does have an AV fistula in his left arm with good bruit and thrill. NEUROLOGIC: Awake, alert, oriented x3, normal speech. Moving all 4 extremities. SKIN: Shows no rash. LABORATORY TEST: reviewed. ASSESSMENT AND PLAN: A 66-year-old male with end-stage renal disease, on chronic peritoneal dialysis with high-dose prescription as he does not have any residual renal function at this time. Admitted with shortness of breath, fever, cough, sore throat and most likely pneumonia in his right lung. I have been consulted for dialysis management. End-stage renal disease: He gets manual as well as cycler peritoneal dialysis at home. He does not have any residual renal function and is on a fairly high dose peritoneal dialysis prescription, but despite that, his current numbers are pretty high with a creatinine of 18+ and a BUN of 115, which signifies inadequate dialysis at this point. He wants to do peritoneal dialysis, which we will do today. Given inpatient setting with significant nursing staff issues, the prescriptions in the hospital will be different and will be coordinated with my dialysis nurse, but we will be doing very aggressive peritoneal dialysis regimen as much as possible. Depending on the UF we get today will decide about UF goal. High BP most likely signifies fluid retention in ESRD patient. Already on aggressive BP regimen Results & Data ([facility]) Vital Signs (Past 12 Hours) Vital Signs Temp Pulse Pulse Pulse Resp BP Pulse Ox 06/14/22 08:13 36.6 C 84 20 170/84 H 94 06/14/22 07:51 81 18 93 06/14/22 05:47 36.9 C 77 19 170/85 H 92 06/14/22 02:37 36.5 C 75 16 175/85 H 92 06/13/22 23:00 78 06/14/22 00:04 69 18 94 06/13/22 23:00 36.3 C L 73 18 200/94 H 90 O2 Del Method 06/14/22 08:13 Room Air 06/14/22 07:51 Room Air 06/14/22 05:47 Room Air 06/14/22 02:37 Room Air 06/13/22 23:00 06/14/22 00:04 Room Air 06/13/22 23:00 Room Air
[2022-06-14] MEDS: CEFEPIME 1,000 MG in SYRINGE 0 ML IV SCH (11:59)
[2022-06-14] MEDS ORDERED: hydrALAZINE HCL 20 MG/ML VIAL IV ONE (12:02)
--- NOTE | 2022-06-14 12:17 | Hospitalist Progress Note ---
Date of Service June 14, 2022 Assessment & Plan (1) Pneumonia: Plan: (1) Pneumonia: Plan: 66-year-old male with history of end-stage renal disease on peritoneal dialysis, hypertension, etc. presenting with shortness of breath, cough, x2 days BILATERAL PNEUMONIA, possible pulmonary edema CT chest: 1. Interlobular septal thickening consistent with interstitial pulmonary edema. Groundglass opacities favor alveolar pulmonary edema. A superimposed infectious process could appear similar although is considered less likely. Cardiomegaly. Trace bilateral pleural effusions. 2. Lobulated 1.2 cm solid right upper lobe nodule. This is indeterminate. A chest CT in 6 months is recommended. Nasal MRSA: Negative Blood cultures: Pending Sputum culture: Pending collection Off oxygen supplement clinically improving Continue with Cefepime plus doxycycline Day 3 Albuterol 4 times daily PRN Peritoneal dialysis per nephrology service ATYPICAL CHEST PAIN, ACUTE CORONARY SYNDROME RULED OUT Troponin elevation Troponin level 189, 2 hours later 173, 6 hours later 171 EKG no signs of acute ischemia or infarct Echocardiogram: No regional wall motion abnormality, moderate concentric LVH, EF 60 to 65%, grade 1 diastolic dysfunction Chest pain resolved HYPERTENSION Continue usual blood pressure medicines including amlodipine,losartan, hydralazine, clonidine patch BP still elevated Metoprolol change to Carvedilol may need Imdur, will discuss with Nephro Monitor closely END-STAGE RENAL DISEASE ON PERITONEAL DIALYSIS Nephrology service consulted For aggressive peritoneal dialysis EPISTAXIS Right nostril Afrin nasal spray ordered, still persistent Rhinorocket placed discussed with ENT Dr. Aguirre, he is not available today, recommend Rhinorocket for now, and PA can see patient on Monday Full code as per patient DVT prophylaxis SCDs for now Disposition Anticipate discharge to home when medically stable plan of care discussed with patient and his son Jennie over the phone in detail and at length all questions answered they are understanding, agreeable, comfortable with the plan of care Admission and Anticipated Discharge Date Admission Date: June 12, 2022 Subjective ff up for BL pneumonia, ESRD, etc seen resting in bed, comfortable states he feels improved compared to yesterday but feels tired breathing improving, less cough had epistaxis again this morning no chest pain, dyspnea, palpitations reevaluated in the afternoon due to recurrent epistaxis despite Afrin requested ER PA Osmel Fox to place rhinorocket explained to patient, rhinorocket placed, epistaxis resolved feels dizzy after PD, recommended bedrest for at least 2 hours discussed plan of care with patient's daughter Jennie over the phone as well Review of Systems Review of Systems: all noted and negative except for above Physical Exam Physical Exam: General- oriented x 3, not in distress, speaks in sentences with no effort or accessory muscle use Eyes- anicteric Nose- (+) clot on the r nostril Neck- no JVD Lungs-mild rhonchi at the bases, no wheezing Heart- normal rate, regular rhythm; no murmurs Abdomen- normal bowel sounds, nondistended, soft, nontender Extremities- no pretibial edema, no calf tenderness Neuro- alert, oriented x 3; no gross focal neurologic deficits Skin- warm & dry Results & Data Results & Data ([facility]) Vital Signs (Past 12 Hours) Vital Signs Temp Pulse Resp BP Pulse Ox O2 Del Method 06/14/22 10:45 36.7 C 85 18 06/14/22 11:00 36.8 C 89 18 168/81 H 97 Room Air 06/14/22 08:13 36.6 C 84 20 170/84 H 94 Room Air 06/14/22 07:51 81 18 93 Room Air 06/14/22 05:47 36.9 C 77 19 170/85 H 92 Room Air 06/14/22 02:37 36.5 C 75 16 175/85 H 92 Room Air all noted and reviewed including below
[2022-06-14] MEDS: carvediloL 6.25 MG TAB PO SCH (20:44)
[2022-06-14] MEDS: cloNIDine HCL 0.1 MG TAB PO SCH (20:58)
[2022-06-15] MEDS ORDERED: SODIUM CHLORIDE 0.65% NA SOLN 45 ML (OCEAN) PRN (04:57)
--- NOTE | 2022-06-15 06:24 | Electrocardiogram Report ---
Test Reason : Blood Pressure : / mmHG Vent. Rate : 079 BPM Atrial Rate : 079 BPM P-R Int : 174 ms QRS Dur : 082 ms QT Int : 404 ms P-R-T Axes : 062 -11 070 degrees QTc Int : 463 ms Normal sinus rhythm with sinus arrhythmia Possible Left atrial enlargement Anterior infarct (cited on or before 12-JUN-2022) Inferior infarct Abnormal ECG When compared with ECG of 12-JUN-2022 12:09, Premature atrial complexes are no longer Present Confirmed by Víctor Sosa ([id number]) on 06/15/2022 6:24:05 AM Referred By: REFERRED SELF Confirmed By:Víctor Sosa
[2022-06-15] MEDS: CHECK CLONIDINE PATCH PLACEMENT SCH ×2 (08:08→16:14)
[2022-06-15] MEDS: DOXYCYCLINE HYCLATE 100 MG in DEXTROSE 5% 100 ML IV SCH (08:08)
[2022-06-15] MEDS: allopurinoL 100 MG TAB PO SCH (08:08)
[2022-06-15] MEDS: cloNIDine HCL 0.1 MG TAB PO SCH (08:08)
[2022-06-15] MEDS: hydrALAZINE TAB 50 MG TAB PO SCH ×2 (08:09→13:33)
[2022-06-15] MEDS: LOSARTAN POTASSIUM 50 MG TAB PO SCH (08:09)
[2022-06-15] MEDS: CINACALCET HCL 30 MG TAB PO SCH (08:10)
[2022-06-15] MEDS: carvediloL 6.25 MG TAB PO SCH (08:10)
[2022-06-15] MEDS: amLODIPine BESYLATE 5 MG TAB PO SCH (08:11)
--- NOTE | 2022-06-15 09:55 | Nephrology Progress Note ---
Date of Service June 15, 2022 Assessment & Plan Admission and Anticipated Discharge Date Admission Date: June 12, 2022 Subjective Subjective S--had some lightheadedness. Had UF 3500 ml. Seen during PD--Overnight long cycler. PHYSICAL EXAMINATION: GENERAL: A middle-aged white male who is awake, alert, oriented x3. He is not in any respiratory distress. We used translation service for communication, but he can also understand most of the Spanish. HEENT: Mucous membrane is moist. NECK: Supple. No jugular venous distention. CHEST: Bilateral decreased breath sound at the bases, especially in the right, otherwise clear. CARDIOVASCULAR: S1 and S2 regular. ABDOMEN: Soft, nontender. EXTREMITIES: Show no edema. He does have an AV fistula in his left arm with good bruit and thrill. NEUROLOGIC: Awake, alert, oriented x3, normal speech. Moving all 4 extremities. SKIN: Shows no rash. LABORATORY TEST: reviewed. ASSESSMENT AND PLAN: A 66-year-old male with end-stage renal disease, on chronic peritoneal dialysis with high-dose prescription as he does not have any residual renal function at this time. Admitted with shortness of breath, fever, cough, sore throat and most likely pneumonia in his right lung. I have been consulted for dialysis management. End-stage renal disease: He gets manual as well as cycler peritoneal dialysis at home. He does not have any residual renal function and is on a fairly high dose peritoneal dialysis prescription, but despite that, his current numbers are pretty high with a creatinine of 18+ and a BUN of 115, which signifies in adequate dialysis at this point. He wants to do peritoneal dialysis, which we will do today. Given inpatient setting with significant nursing staff issues, the prescriptions in the hospital will be different and will be coordinated with my dialysis nurse, but we will be doing very aggressive peritoneal dialysis regimen as much as possible. Depending on the UF we get today will decide about UF goal. Likely will do 15 hrs and 7 exchanges. Given his BUN is 100+ and Creat of 17 not sure this PD is giving him enough clearance. Given holiday schedule will be difficult from nurisng issues BP was high because of Pulm edema. It is better now after aggressive UF yesterday. Already on aggressive BP regimen Results & Data ([facility]) Vital Signs (Past 12 Hours) Vital Signs Temp Pulse Pulse Pulse Resp BP Pulse Ox 06/15/22 08:04 36.6 C 78 16 154/75 H 94 06/15/22 03:22 36.4 C L 87 20 154/69 H 95 06/14/22 23:46 85 06/14/22 23:09 36.7 C 79 18 165/83 H 94 O2 Del Method 06/15/22 08:04 Room Air 06/15/22 03:22 Room Air 06/14/22 23:46 06/14/22 23:09 Room Air
[2022-06-15] MEDS: CEFEPIME 1,000 MG in SYRINGE 0 ML IV SCH (11:56)
[2022-06-15 12:47] LABS: Basophils # (auto) 0.06 K/uL (0-0.2); Basophils % (auto) 0.6 %; Eosinophils # (auto) 1.21 K/uL (0-0.50); Hematocrit (blood only) 23.5 % (40.1-51.0); Hemoglobin 7.6 g/dl (14.0-18.0); Immature Granulocytes # (auto) 0.02 K/uL (0.00-0.02); Immature Granulocytes % (auto) 0.2 %; Lymphocytes # (auto) 0.57 K/uL (1.2-3.4); Lymphocytes % (auto) 5.7 %; Mean Corpuscular Hemoglobin 28.5 pg (25.0-34.0); Mean Corpuscular Hgb Conc 32.3 g/dL (32.0-36.0); Mean Platelet Volume 10.9 fL (9.4-12.4); Monocytes # (auto) 1.14 K/uL (0.24-0.82); Monocytes % (auto) 11.3 %; Neutrophils # (auto) 7.07 K/uL (1.4-6.5); Neutrophils % (auto) 70.2 %; Platelet Count 175 K/uL (130-400); RDW Coefficient of Variation 16.7 % (11.5-14.5); RDW Standard Deviation 53.7 fL (36.4-46.3); Red Blood Count 2.67 M/uL (4.63-6.08); White Blood Count 10.07 K/ul (4.8-10.8)
[2022-06-15 13:11] LABS: BUN Creatinine Ratio 5.8 (10-20); Calcium 7.1 mg/dl (8.5-10.1); Creatinine Clr Calc Pharmacy 4.2 ml/min; Est GFR (Non-African American) 2.6 ml/min; Potassium 4.6 mmol/L (3.5-5.1)
[2022-06-15 13:19] LABS: RBC Morphology Unremarkable
[2022-06-15] MEDS ORDERED: SODIUM CHLORIDE 0.9% 250 ML IV PRN (16:07)
--- NOTE | 2022-06-15 17:56 | Hospitalist Progress Note ---
Date of Service June 15, 2022 Assessment & Plan (1) Pneumonia: Plan: 66-year-old male with history of end-stage renal disease on peritoneal dialysis, hypertension, etc. presenting with shortness of breath, cough,fever x2 days BILATERAL PNEUMONIA possible component of pulmonary edema CT chest: 1. Interlobular septal thickening consistent with interstitial pulmonary edema. Groundglass opacities favor alveolar pulmonary edema. A superimposed infectious process could appear similar although is considered less likely. Cardiomegaly. Trace bilateral pleural effusions. 2. Lobulated 1.2 cm solid right upper lobe nodule. This is indeterminate. A chest CT in 6 months is recommended. Nasal MRSA: Negative Blood cultures: Negative after 48 hours Sputum culture: Pending collection Off oxygen supplement on hospital day 2 clinically improved given Cefepime plus doxycycline x 3 days, transition to Levaquin PO starting tomorrow (renally dosed: 750mg Day 1, 500mg q48h after to complete 10 day course total) Albuterol 4 times daily PRN Peritoneal dialysis performed per nephrology service ANEMIA, LIKELY ACUTE BLOOD LOSS FROM EPISTAXIS, CKD Afrin given but epistaxis (r nostril) was recurrent Rhino Rocket placed yesterday, but was removed by patient last night due to discomfort Today, no recurrence of epistaxis Tried to consult ENT, but no ENT coverage for this week discussed with Dr. Aguirre, ff up as outpatient Hemoglobin decreased from 9.2, today 7.6 1 unit of packed RBC ordered Repeat CBC tomorrow ATYPICAL CHEST PAIN, ACUTE CORONARY SYNDROME RULED OUT Troponin level 189, 2 hours later 173, 6 hours later 171 EKG no signs of acute ischemia or infarct Echocardiogram: No regional wall motion abnormality, moderate concentric LVH, EF 60 to 65%, grade 1 diastolic dysfunction Chest pain resolved HYPERTENSION Usually on amlodipine,losartan, hydralazine, clonidine patch BP elevated , Metoprolol tartrate changed to Nephrology recommendations: DC clonidine patch Increase hydralazine 100 mg p.o. 3 times daily continue usual amlodipine 10 mg p.o. daily, losartan 50 mg p.o. twice daily continue Carvedilol 6.25 mg p.o. twice daily Blood pressure now improving monitor END-STAGE RENAL DISEASE ON PERITONEAL DIALYSIS Nephrology service consulted aggressive peritoneal dialysis performed per Dr. Damon, PD tonight until tomorrow mid morning then ok for discharge, to resume usual PD at home by patient patient follows with Nephro in [place] Full code as per patient DVT prophylaxis SCDs Disposition Anticipate discharge to home tomorrow when medically stable patient performs PD at home ff up with PCP in 1 week ff up with Nephro as scheduled needs referral to ENT plan of care discussed with patient and his son Jennie over the phone in detail and at length all questions answered they are understanding, agreeable, comfortable with the plan of care Admission and Anticipated Discharge Date Admission Date: June 12, 2022 Subjective Follow-up for bilateral pneumonia,With hypoxia,End-stage renal disease, etc. Seen sitting up in bed, comfortable, not in distress, in good spirits States he feels better overall Breathing is much better, no cough Rhino Rocket was removed by patient yesterday due to discomfort, no recurrence of epistaxis today Denies chest pain, shortness of breath, palpitations, dizziness, fevers or chi lls Review of Systems Review of Systems: all noted and negative except for above Physical Exam Physical Exam: General- oriented x 3, not in distress, speaks in sentences with no effort or accessory muscle use Eyes- anicteric Nose-no bleeding Neck- no JVD Lungs- clear breath sounds bilaterally, No crackles or wheezing Heart- normal rate, regular rhythm; no murmurs Abdomen- normal bowel sounds, nondistended, soft, nontender Extremities- no pretibial edema, no calf tenderness Positive left arm AV fistula Neuro- alert, oriented x 3; no gross focal neurologic deficits Skin- warm & dry Results & Data Results & Data ([facility]) Vital Signs (Past 12 Hours) Vital Signs Temp Pulse Pulse Pulse Resp BP Pulse Ox 06/15/22 14:13 86 06/15/22 16:00 36.5 C 80 16 140/69 06/15/22 15:22 36.5 C 77 16 139/74 95 06/15/22 08:52 06/15/22 12:00 06/15/22 11:55 36.5 C 70 16 123/65 94 06/15/22 09:55 36.7 C 80 18 06/15/22 08:04 36.6 C 78 16 154/75 H 94 Pulse Ox O2 Del Method O2 Del Method 06/15/22 14:13 06/15/22 16:00 06/15/22 15:22 Room Air 06/15/22 08:52 Room Air 06/15/22 12:00 94 Room Air 06/15/22 11:55 Room Air 06/15/22 09:55 06/15/22 08:04 Room Air all noted and reviewed including below
[2022-06-15 23:33] LABS: Hematocrit (blood only) 25.3 % (40.1-51.0); Hemoglobin 8.2 g/dl (14.0-18.0)
[2022-06-16] MEDS: CHECK CLONIDINE PATCH PLACEMENT SCH ×2 (00:55→07:45)
[2022-06-16] MEDS: allopurinoL 100 MG TAB PO SCH (07:44)
[2022-06-16] MEDS: CINACALCET HCL 30 MG TAB PO SCH (07:44)
--- NOTE | 2022-06-16 10:04 | Nephrology Progress Note ---
Date of Service June 16, 2022 Assessment & Plan (1) ESRD (end stage renal disease) on dialysis: Plan: Patient with ESRD on cycler PD pain patient was on the cycler 15 hours yesterday. Labs improving. We will do cycled PD today for 15 hours and 8 exchanges. Admission and Anticipated Discharge Date Admission Date: June 12, 2022 Subjective Seen for ESRD. Patient was seen and examined while on PD. No shortness of breath or leg swelling. Review of Systems Review of Systems: All other systems were reviewed and negative except as noted in HPI Physical Exam Physical Exam: General exam: Appears comfortable, no acute distress HEENT: Pupils are equal and reactive to light Neck: No JVD, neck is supple trachea is midline Respiratory system: Clear breath sounds bilaterally. Gastrointestinal: Abdomen is soft, non distended, non tender, bowel sounds are present CVS: Regular rate and rhythm. No murmurs, rubs or gallops Musculoskeletal: No joint or muscle tenderness Extremities: Non tender, no edema, peripheral pulses are present Neuro: Oriented, no tremors, no focal neurological deficits Skin: No rashes Results & Data ([facility]) Vital Signs (Past 12 Hours) Vital Signs Temp Pulse Pulse Pulse Resp BP Pulse Ox 06/16/22 09:45 36.7 C 75 18 06/16/22 08:14 36.7 C 74 18 154/77 H 92 06/16/22 03:17 36.6 C 76 18 157/75 H 95 06/16/22 00:29 70 06/15/22 23:23 36.6 C 65 20 161/84 H 94 O2 Del Method 06/16/22 09:45 06/16/22 08:14 Room Air 06/16/22 03:17 Room Air 06/16/22 00:29 06/15/22 23:23 Room Air Laboratory Results 06/15/22 12:35 06/15/22 12:35 WBC 10.07 RBC 2.67 L MCV 88.0 MCH 28.5 MCHC 32.3 RDW Std Deviation 53.7 H RDW Coeff of Diamond 16.7 H Plt Count 175 MPV 10.9
[2022-06-16 10:15] LABS: Basophils # (auto) 0.07 K/uL (0-0.2); Basophils % (auto) 0.6 %; Eosinophils # (auto) 1.26 K/uL (0-0.50); Eosinophils % (auto) 11.4 %; Hematocrit (blood only) 25.9 % (40.1-51.0); Hemoglobin 8.5 g/dl (14.0-18.0); Immature Granulocytes # (auto) 0.05 K/uL (0.00-0.02); Immature Granulocytes % (auto) 0.5 %; Lymphocytes # (auto) 0.68 K/uL (1.2-3.4); Lymphocytes % (auto) 6.2 %; Mean Corpuscular Hemoglobin 28.8 pg (25.0-34.0); Mean Corpuscular Hgb Conc 32.8 g/dL (32.0-36.0); Mean Corpuscular Volume 87.8 fL (80.0-100.0); Mean Platelet Volume 11.1 fL (9.4-12.4); Monocytes # (auto) 1.42 K/uL (0.24-0.82); Monocytes % (auto) 12.9 %; Neutrophils # (auto) 7.55 K/uL (1.4-6.5); Neutrophils % (auto) 68.4 %; Platelet Count 202 K/uL (130-400); RDW Coefficient of Variation 16.4 % (11.5-14.5); RDW Standard Deviation 52.3 fL (36.4-46.3); Red Blood Count 2.95 M/uL (4.63-6.08); White Blood Count 11.03 K/ul (4.8-10.8)
[2022-06-16 10:35] LABS: BUN Creatinine Ratio 5.8 (10-20); Calcium 7.3 mg/dl (8.5-10.1); Creatinine Clr Calc Pharmacy 4.5 ml/min; Est GFR (African American) 3.3 ml/min; Est GFR (Non-African American) 2.8 ml/min; Potassium 4.2 mmol/L (3.5-5.1)
[2022-06-16] MEDS: carvediloL 6.25 MG TAB PO SCH (11:01)
[2022-06-16] MEDS: amLODIPine BESYLATE 5 MG TAB PO SCH (11:01)
[2022-06-16] MEDS: hydrALAZINE TAB 50 MG TAB PO SCH (11:01)
[2022-06-16] MEDS: LOSARTAN POTASSIUM 50 MG TAB PO SCH (11:01)
[2022-06-16] MEDS ORDERED: levoFLOXacin 750 MG TAB PO SCH (12:00)
--- NOTE | 2022-06-16 13:45 | Discharge Summary ---
Discharge Summary Date of Service June 16, 2022 Notes For Next Care Provider Medication Changes From Visit Hydralazine 50mg PO QID changed to 100mg PO TID Levofloxacin 500mg PO q48h Admission HPI Per Admitting Provider 66-year-old male with history of end-stage renal disease on peritoneal dialysis, hypertension, other problems noted below presenting with cough and shortness of breath x2 days. Patient is Iranian-speaking, history obtained with translation services. Patient reports 2-day history of fever, cough, shortness of breath associated with sore throat and nasal congestion. Also reports generalized chest wall discomfort, constant, worse with movement. Worsening of symptoms for reconsult to the ED. At the ER, patient was received with O2 saturation more than 90%, elevated blood pressure. Chest x-ray showing right lower lobe pneumonia. EKG did not show any signs of acute infarct, troponin was 189, and on repeat 2 hours later was 173.3. He was given cefepime plus azithromycin, duo nebs, hydralazine p.o. and aspirin p.o. On exam, patient seen resting in bed sitting up, on 2 L of oxygen by nasal cannula, comfortable, not in distress, speaking in sentences with no effort. States he is starting to feel better since admission. Breathing is improving, denies active chest pain on exam No palpitations, dizziness, nausea vomiting, abdominal pain. Patient reports he does his own peritoneal dialysis at home will be able to perform it while in hospital. No other symptoms noted Admission Exam Per Admitting Provider Physical Exam: General- oriented x 3, not in distress, speaks in sentences with no effort or accessory muscle use Head- atraumatic Eyes- PERRL, EOMI, anicteric ENT- oropharynx clear Neck- supple, no JVD, no adenopathy, no thyromegaly; carotids +2/2, no bruits appreciated Lungs-positive crackles bilateral lung bases, no wheezing, good air entry bilaterally Heart- normal rate, regular rhythm; no murmur, no gallop, no rub appreciated Abdomen- normal bowel sounds, nondistended, soft, nontender, no masses or hepatosplenomegaly Extremities- no pretibial edema, no calf tenderness; peripheral pulses intact Positive AV fistula on the left arm Neuro- alert, oriented x 3; CN 2-12 grossly intact; motor 5/5 bilaterally;sensation 100% on all extremities; no other gross focal neurologic deficits Skin- warm & dry Principal Dx & Hospital Course #1 = Principal Diagnosis (1) Pneumonia: 66-year-old Iranian-speaking man presented with 2 days of fever, sore throat, nasal congestion and coughing. He was seen in the ER and found to have a mild leukocytosis, anemia consistent with prior results, no coagulopathy and evidence of chronic renal failure. He was noted to be on peritoneal dialysis. There was no electrolyte abnormality in need of emergent correction and no concerning liver enzyme elevations. Procalcitonin level was not elevated. Lactic acid was not elevated making severe sepsis less likely on admission. Chest x-ray revealed what appeared to be a right-sided pneumonia. An EKG revealed sinus rhythm with no ST elevation. Cardiac enzyme testing x2 showed a mild elevation although the values were stable and not rising. Respiratory bio fire testing was completely negative. He was not noted to be hypoxic but was using oxygen for comfort. He was given an albuterol MDI, IV saline and IV cefepime as well as IV azithromycin. He was continued on nebulized bronchodilators and admitted to the hospitalist service. Cefepime was continued with azithromycin changed to doxycycline and he continued on the antibiotic course for pneumonia. Nephrology was consulted and continued him on his peritoneal dialysis per home regimen. At 1 point he had uncontrolled blood pressure with a systolic blood pressure in the 200s and was adjusted from Lopressor to Coreg. An echocardiogram revealed no regional wall motion abnormality, moderate concentric LVH, and EF of 60 to 65% and grade 1 diastolic dysfunction. His atypical chest pain resolved and there was no further work-up felt was needed in the hospital. He did have an episode of epistaxis in the right nostril on 06/13, and Afrin nasal spray was ordered. The epistaxis was persistent and a Rhino Rocket was placed. The case was peripherally discussed with ENT who agreed with the Rhino Rocket and offered to follow him as outpatient post hospital discharge. At time of discharge he was hemodynamically stable and afebrile and tolerating p.o. His breathing was normal and he was not requiring any oxygen. His hydralazine was adjusted from 50 mg p.o. 4 times daily to 100 mg p.o. 3 times daily and he was continued on a couple of more days of levofloxacin for treatment of his pneumonia. Close primary care follow-up was recommended. Of note he was found to have a lobulated 1.2 cm solid right upper lobe nodule that was indeterminate. A chest CT in 6 months was recommended. These findings were discussed with the patient via a Iranian mixer runner and he verbalized understanding with intent to comply. Patient is a lifelong non-smoker. Updated Medication List Medication Instructions Recorded Confirmed Type amlodipine 10 mg tablet 10 mg PO DAILY 05/15/19 06/12/22 History epoetin beta, methoxy peg 150 150 mcg subcut UD 10/28/20 06/12/22 History mcg/0.3 mL injection syringe (Mircera) ergocalciferol (vitamin D2) 1,250 1,250 mcg PO WK 10/28/20 06/12/22 History mcg (50,000 unit) capsule (Vitamin D2) losartan 50 mg tablet 50 mg PO BID 10/28/20 06/12/22 History allopurinol 100 mg tablet 100 mg PO DAILY 06/12/22 06/12/22 History carvedilol 6.25 mg tablet 6.25 mg PO BID 06/12/22 06/12/22 History cinacalcet 60 mg tablet (Sensipar) 60 mg PO DAILY 06/12/22 06/12/22 History clonidine 0.2 mg/24 hr weekly 0.2 mg transdermal WK 06/12/22 06/12/22 History transdermal patch ferric citrate 210 mg iron tablet 2 tab PO TIDM 06/12/22 06/12/22 History (Auryxia) metoprolol tartrate 25 mg tablet 25 mg PO BID 06/12/22 06/12/22 History mupirocin 2 % topical ointment 1 applic topical UD PRN Skin 06/12/22 06/12/22 History Irritation hydralazine 100 mg tablet 100 mg PO TID #90 tabs 06/16/22 Rx levofloxacin 500 mg tablet 500 mg PO Q48H #3 tabs 06/16/22 Rx Hospital Stay Data Consultations 06/12/22 16:56 ED Decision to Admit Stat 06/12/22 18:54 Consult Nephrology Routine Diagnostic Imagining Performed 06/12/22 18:48 CT chest diagnostic wo con Routine Pending Results Patient Have Any Pending Studies at Discharge: No Discharge Instructions Given to Patient (Per Discharging Provider) Please take all medications as instructed on discharge list below. It is recommended that you follow up with your primary care physician within one week to recheck your blood pressure and adjust medications as needed. Please report if ongoing symptoms of dizziness are present at this time. It will also be important to schedule your followup chest CT, which may be ordered by this physician. You will need a repeat CT chest in 6 months to monitor the 1.9 cm nodule seen on CT scan. These are typically followed for 3-5 years to ensure they are stable/resolved. It was a pleasure taking care of you! Please call if you have any questions or problems. You can reach a [facility] hospitalist on duty at [facility] 24 hours a day by calling [phone]. Take care of yourself. Dannielle Huston, [facility]ist Total Time Total Time Spent Total Time Spent (In Minutes): 60
[2022-06-18] MEDS ORDERED: levoFLOXacin 500 MG TAB PO SCH (11:00)
== END 2022-06-16 15:10 | disposition home or self-care (01) | DRG 193 ==
LOC: ED 12:00 → 2S 17:47 → SUATTDRO 17:47 → 2S 18:03

== ENCOUNTER 2022-08-19 14:06 | Inpatient (IN) ==
[2022-08-19] MEDS ORDERED: SODIUM CHLORIDE 0.9% 500 ML IV STA (14:12)
[2022-08-19] MEDS ORDERED: PANTOprazole 40 MG in SYRINGE 0 ML IV ONE (14:23)
[2022-08-19] MEDS ORDERED: FAMOTIDINE 20 MG in SYRINGE 3 ML IV ONE (14:23)
--- NOTE | 2022-08-19 14:28 | Emergency Department Note ---
Impression & Plan Acute upper gastrointestinal bleeding, SOB (shortness of breath), Anemia, Pleural effusion on left, Acute hyperkalemia ED Provider Note NAME: DIMAS ERVIN AGE: 66 SEX: M : 1955 ARRIVES VIA: Ambulance INFORMANT: Patient, the patient sitter ED PROVIDER(S): Nemesio Bill DO CHIEF COMPLAINT: Shortness of breath HPI: The patient is a 66-year-old male who presented to the emergency department by ambulance. History was obtained from the patient using the patient sitter. The patient states for approximately 5 days he has noticed that he has been having shortness of breath. He also notices pain in his upper right back. He also notices that he has been shortness of breath with any exertion. The patient states he has some black stool but he also takes iron supplement. He denies having any nausea or vomiting. He denies having any abdominal pain. He does not make urine anymore and uses peritoneal dialysis. He had lab studies drawn by his primary care physician a few days ago. He was told to come the emergency department because of an abnormal hemoglobin which was low. The patient is unsure if he needs a blood transfusion but he has had a blood transfusion in the past for similar complaints. He denies having any recent trauma. He states his dialysis fluid has been clear. He denies having any fever but he has had a cough. ROS: See above HPI for pertinent positives & negatives. A total of 10 systems reviewed and were otherwise negative. PAST MEDICAL HISTORY: See Below PAST SURGICAL HISTORY: See Below FAMILY HISTORY: See Below SOCIAL HISTORY: See Below HOME MEDICATIONS: See Below ALLERGIES: See Below VITALS: See Below PHYSICAL EXAMINATION: GENERAL: Patient is awake alert in no acute distress patient is resting comfortably and showing no signs of anxiety EYES: The conjunctivae are pale. The pupils are round and reactive. EARS, NOSE, MOUTH AND THROAT: The nose is without any evidence of any deformity. NECK: The neck is nontender and supple. RESPIRATORY: Diminished breath sounds are noted in the right lung field. There were rales at both bases. CARDIOVASCULAR: Regular rate and rhythm noted there no murmurs rubs or gallops normal S1 normal S2. GASTROINTESTINAL: Abdomen was soft and nondistended. There is no tenderness guarding rigidity. Rectal exam revealed dark stool which was heme positive. MUSCULOSKELETAL/EXTREMITIES: There is no evidence of gross deformity full range of motion is noted in the hips and shoulders. SKIN: Skin is warm and dry. Pedal edema was noted bilaterally. NEUROLOGIC: Patient is awake alert and oriented x3 MEDICAL DECISION MAKING: The patient is a 66-year-old male who presented to the emergency department for an evaluation of back pain. The patient was complaining of left-sided back pain. Chest x-ray shows a pleural effusion and I feel this represents the patient's pain. The patient was not febrile but he did have a cough. He was found to have anemia with signs of an upper GI bleed. He was also found to have renal failure. He does have a history of renal failure. Currently he is un dergoing peritoneal dialysis. The patient was treated with a small fluid bolus given his renal failure. He was also treated with calcium and insulin. He did have slight EKG changes associated with hyper kalemia. The patient was also found to have upper GI bleed. He was treated with Protonix. He he was consented for blood and I ordered blood transfusion for him. [facility] to evaluate the patient in the emergency department for further management and disposition. Triage Nursing notes reviewed. Prior medical records reviewed Vital Signs: reviewed and remarkable for elevated blood pressure. Differential diagnosis: Reactive airway disease, pneumonia, pneumothorax, COPD, CHF, infections, cardiac ischemia, pulmonary embolism, musculoskeletal, gastrointestinal, as well as other pathologies. ER treatment provided: See below Diagnostics interpreted by me: ECG: EKG was obtained in the emergency department. My interpretation is normal sinus rhythm at 80 bpm. There was no ectopy. There is no acute ST segment abnormalities noted. Peaking T waves were noted in the anterior and apical le ads however there was no change compared to a previous tracing on June 13, 2022. Cardiac Monitoring: An order was placed for continuous cardiac monitoring. The monitor shows a rate of 74 bpm with sinus rhythm. Laboratory studies: As stated above and show below. Imaging studies: See below. Radiographic imaging was reviewed by myself Consultation(s): I discussed this case with Dr. Ramos who is on-call for the [facility] group. ED COURSE: Procedures: none Critical Care: I have personally spent greater than 45 minutes of critical care time in the direct management of this patient. This includes bedside care, interpretation of diagnostic studies, and testing, discussion with consultants, patient, and family members, and other required patient management activities. This 45 minutes is in excess of all separately billable procedures. Past Med/Surg History Medical History (Updated 08/19/22 @ 17:04 by Taj Ramos MD) AV fistula NOT USABLE PER DAUGHTER Benign prostatic hyperplasia with urinary obstruction BPH (benign prostatic hyperplasia) Dialysis patient ONLY GETS PERITONEAL DIAYLSIS NOW End stage chronic kidney disease follows with Dr. Watt ESRD (end stage renal disease) on dialysis Hypertension Kidney transplant candidate reason for colonoscopy to get on list Nephrolithiasis Peritoneal dialysis catheter in place Peritoneal dialysis status per daughter--"in place with a hole" but currently not using Restless leg syndrome Surgical History H/O inguinal hernia repair History of colonoscopy History of cystoscopy History of thoracentesis History of tooth extraction Status post creation of arteriovenous fistula left arm Family History Other No family history of adverse response to anesthesia No significant family history Social History Smoking Status: Never smoker Second Hand Exposure: No; Do You Dip or Chew Tobacco: No; Hx Alcohol Use: No Hx Substance Use: No Preferred Language: Slovenian Communication Ability: Effective Communication Tools: IPad Cleat Blanker Required: Yes Beliefs That Will Affect Care: None marital status: Current Living Situation: Spouse current occupational status: employed Feels Safe at Home: Yes Safety Concerns: Feels Safe At This Time Assistive Devices: Glasses Allergies Allergies Allergy/AdvReac Type Severity Reaction Status Date / Time No Known Allergies Allergy Verified 06/12/22 13:03 Home Meds Home Medications Medication Instructions Recorded Confirmed amlodipine 10 mg tablet 10 mg PO DAILY 05/15/19 08/19/22 ergocalciferol (vitamin D2) 1,250 1,250 mcg PO WK 10/28/20 08/19/22 mcg (50,000 unit) capsule (Vitamin D2) losartan 50 mg tablet 50 mg PO BID 10/28/20 08/19/22 allopurinol 100 mg tablet 100 mg PO DAILY 06/12/22 08/19/22 carvedilol 6.25 mg tablet 6.25 mg PO BID 06/12/22 08/19/22 clonidine 0.2 mg/24 hr weekly 0.2 mg transdermal WK 06/12/22 08/19/22 transdermal patch metoprolol tartrate 25 mg tablet 25 mg PO BID 06/12/22 08/19/22 calcitriol 0.5 mcg capsule 1.5 mcg PO DAILY 08/19/22 08/19/22 cinacalcet 30 mg tablet 30 mg PO DAILY 08/19/22 08/19/22 colchicine 0.6 mg tablet 1.2 mg PO Q6 PRN gout flare 08/19/22 08/19/22 epoetin beta, methoxy peg 200 200 mcg subcut MONTHLY 08/19/22 08/19/22 mcg/0.3 mL injection syringe (Mircera) hydralazine 100 mg tablet 100 mg PO QID 08/19/22 08/19/22 vit B,C-folic ac 800 mcg-zinc 12.5 1 tab PO DAILY 08/19/22 08/19/22 mg-selen-D3 2,000 unit-vit E tablet (RenaPlex-D) Results & Data (ED) Vital Signs Vital Signs - 24 hr 08/19/22 14:22 08/19/22 14:22 08/19/22 16:00 Temperature 37 C Temperature Source Oral Pulse Rate 80 Pulse Rate [Apical] 74 Pulse Rhythm Pulse Rhythm [Apical] Regular Pulse Strength Pulse Strength [Apical] Normal Respiratory Rate 18 18 Respiratory Effort / Characteristics Non-Labored Respiratory Depth Normal Respiratory Pattern Regular Blood Pressure 171/96 H Blood Pressure [Right Arm] 172/85 H Blood Pressure Mean 121 Blood Pressure Mean [Right Arm] 114 Blood Pressure Position Pulse Oximetry 93 93 87 L Oxygen Delivery Method Room Air Room Air Room Air Oxygen Flow Rate Sepsis Recent Fever Within 48 Hours No Sepsis New/Unexplained Change in Mental Status No Sepsis Action Taken by Nursing No Action Required 08/19/22 16:08 08/19/22 17:16 08/19/22 17:39 Temperature 36.8 C Temperature Source Oral Pulse Rate 81 Pulse Rate [Apical] 83 Pulse Rhythm Pulse Rhythm [Apical] Pulse Strength Pulse Strength [Apical] Respiratory Rate 18 17 Respiratory Effort / Characteristics Non-Labored Spontaneous Respiratory Depth Normal Respiratory Pattern Blood Pressure 167/86 H Blood Pressure [Right Arm] Blood Pressure Mean 113 Blood Pressure Mean [Right Arm] Blood Pressure Position Pulse Oximetry 94 99 100 Oxygen Delivery Method Nasal Cannula Room Air Oxygen Flow Rate 2 2 Sepsis Recent Fever Within 48 Hours Sepsis New/Unexplained Change in Mental Status Sepsis Action Taken by Nursing 08/19/22 17:57 08/19/22 18:12 08/19/22 18:42 Temperature 36.7 C 36.8 C 36.6 C Temperature Source Oral Oral Oral Pulse Rate 76 75 75 Pulse Rate [Apical] Pulse Rhythm Regular Regular Regular Pulse Rhythm [Apical] Pulse Strength Normal Normal Normal Pulse Strength [Apical] Respiratory Rate 16 17 17 Respiratory Effort / Characteristics Respiratory Depth Respiratory Pattern Blood Pressure 165/89 H 162/108 H 163/85 H Blood Pressure [Right Arm] Blood Pressure Mean 114 126 111 Blood Pressure Mean [Right Arm] Blood Pressure Position Lying Pulse Oximetry 97 97 97 Oxygen Delivery Method Oxygen Flow Rate 2 2 2 Sepsis Recent Fever Within 48 Hours Sepsis New/Unexplained Change in Mental Status Sepsis Action Taken by Nursing 08/19/22 19:41 Temperature 36.9 C Temperature Source Oral Pulse Rate 84 Pulse Rate [Apical] Pulse Rhythm Regular Pulse Rhythm [Apical] Pulse Strength Normal Pulse Strength [Apical] Respiratory Rate 18 Respiratory Effort / Characteristics Respiratory Depth Respiratory Pattern Blood Pressure 167/93 H Blood Pressure [Right Arm] Blood Pressure Mean 117 Blood Pressure Mean [Right Arm] Blood Pressure Position Pulse Oximetry 94 Oxygen Delivery Method Oxygen Flow Rate 2 Sepsis Recent Fever Within 48 Hours Sepsis New/Unexplained Change in Mental Status Sepsis Action Taken by Long-Term Medications Current Medication List: was personally reviewed by me Laboratory Data Attestation: I reviewed the patient's lab results. 08/19/22 14:52 08/19/22 14:53 Lab Results 08/19/22 08/19/22 08/19/22 Range/Units 14:45 14:52 14:52 WBC 12.32 H (4.8-10.8) K/ul RBC 2.66 L (4.70-6.10) M/uL Hgb 7.0 L (14.0-18.0) g/dl Hct 22.2 L (42.0-52.0) % MCV 83.5 (80.0-100.0) fL MCH 26.3 (25.0-34.0) pg MCHC 31.5 L (32.0-36.0) g/dL RDW Std Deviation 58.1 H (36.4-46.3) fL RDW Coeff of Diamond 19.9 H (11.5-14.5) % Plt Count 402 H (130-400) K/uL MPV 12.1 (9.4-12.4) fL Immature Gran % (Auto) 0.8 % Neut % (Auto) 77.1 % Lymph % (Auto) 6.5 % [place] % (Auto) 9.4 % Eos % (Auto) 5.6 % Baso % (Auto) 0.6 % Neut # (Auto) 9.50 H (1.40-6.50) K/uL Lymph # (Auto) 0.80 L (1.2-3.4) K/uL [place] # (Auto) 1.16 H (0.11-0.59) K/uL Eos # (Auto) 0.69 H (0-0.50) K/uL Baso # (Auto) 0.07 (0-0.2) K/uL Immature Gran # (Auto) 0.10 (0.01-0.20) K/uL Polychromasia 1+ Anisocytosis Present Target Cells 1+ Schistocytes 1+ PT 11.1 (9.0-12.0) Seconds INR 1.0 (0.9-1.1) APTT 32.8 H (21.0-31.0) Seconds PTT Ratio 1.2 Sodium (136-145) mmol/L Potassium Chloride (98-107) mmol/L Carbon Dioxide (21-32) mmol/L Anion Gap (3-11) BUN (6-23) mg/dl Creatinine (0.6-1.4) mg/dl Est Cr Clr Drug Dosing ml/min Est GFR ( Amer) ml/min Est GFR (Non-Af Amer) ml/min BUN/Creatinine Ratio (10-20) Glucose (70-99(Fasting)) mg/dl Calcium (8.5-10.1) mg/dl Total Bilirubin (0.2-1.0) mg/dl AST ALT (7-52) U/L Alkaline Phosphatase (34-104) U/L Troponin I High Sens (0-20) pg/ml Total Protein (6.0-8.3) gm/dl Albumin (3.4-5.0) gm/dl Globulin (2.5-4.0) gm/dl Albumin/Globulin Ratio (0.9-2) Lipase (11-82) U/L SARS-CoV-2, RNA, NAAT NEGATIVE (NEGATIVE) Blood Type Antibody Screen Crossmatch 08/19/22 08/19/22 08/19/22 Range/Units 14:52 14:52 14:53 WBC (4.8-10.8) K/ul RBC (4.70-6.10) M/uL Hgb (14.0-18.0) g/dl Hct (42.0-52.0) % MCV (80.0-100.0) fL MCH (25.0-34.0) pg MCHC (32.0-36.0) g/dL RDW Std Deviation (36.4-46.3) fL RDW Coeff of Diamond (11.5-14.5) % Plt Count (130-400) K/uL MPV (9.4-12.4) fL Immature Gran % (Auto) % Neut % (Auto) % Lymph % (Auto) % [place] % (Auto) % Eos % (Auto) % Baso % (Auto) % Neut # (Auto) (1.40-6.50) K/uL Lymph # (Auto) (1.2-3.4) K/uL [place] # (Auto) (0.11-0.59) K/uL Eos # (Auto) (0-0.50) K/uL Baso # (Auto) (0-0.2) K/uL Immature Gran # (Auto) (0.01-0.20) K/uL Polychromasia Anisocytosis Target Cells Schistocytes PT (9.0-12.0) Seconds INR (0.9-1.1) APTT (21.0-31.0) Seconds PTT Ratio Sodium 136 (136-145) mmol/L Potassium TNP 6.2 H* Chloride 97 L (98-107) mmol/L Carbon Dioxide 23 (21-32) mmol/L Anion Gap 16 H (3-11) BUN 97 H (6-23) mg/dl Creatinine 13.57 H* (0.6-1.4) mg/dl Est Cr Clr Drug Dosing 5.1 ml/min Est GFR ( Amer) 3.8 ml/min Est GFR (Non-Af Amer) 3.3 ml/min BUN/Creatinine Ratio 7.1 L (10-20) Glucose 74 (70-99(Fasting)) mg/dl Calcium 8.7 (8.5-10.1) mg/dl Total Bilirubin 0.5 (0.2-1.0) mg/dl AST TNP 17 ALT 14 (7-52) U/L Alkaline Phosphatase 56 (34-104) U/L Troponin I High Sens 210.7 H* (0-20) pg/ml Total Protein 5.6 L (6.0-8.3) gm/dl Albumin 2.9 L (3.4-5.0) gm/dl Globulin 2.7 (2.5-4.0) gm/dl Albumin/Globulin Ratio 1.1 (0.9-2) Lipase 18 (11-82) U/L SARS-CoV-2, RNA, NAAT (NEGATIVE) Blood Type O Positive Antibody Screen NEGATIVE Crossmatch See Detail Administered Medications Discontinued Medications Dextrose (Dextrose 50% 50 Ml Syringe) 50 ml IV NOW ONE Stop: 08/19/22 16:39 Last Admin: 08/19/22 16:59 Dose: 50 ml Documented By: LUIS Fentanyl Citrate (Fentanyl Citrate 100 Mcg/2 Ml Vial) 50 mcg IV NOW STA Stop: 08/19/22 15:56 Last Admin: 08/19/22 16:00 Dose: 50 mcg Documented By: LUIS Sodium Chloride (Nss) 500 mls @ 999 mls/hr IV .Q31M STA Stop: 08/19/22 14:42 Last Infusion: 08/19/22 16:20 Dose: 0 mls/hr Documented By: Admin: 08/19/22 15:46 Dose: 999 mls/hr Documented By: LUIS Pantoprazole Sodium 40 mg/ (Syringe) 10 mls @ 5 mls/min IV NOW ONE Stop: 08/19/22 14:24 Last Admin: 08/19/22 15:45 Dose: 5 mls/min Documented By: LUIS Famotidine 20 mg/ Syringe 5 mls @ 2.5 mls/min IV NOW ONE Stop: 08/19/22 14:24 Last Admin: 08/19/22 15:45 Dose: 2.5 mls/min Documented By: LUIS Sodium Chloride (Nss 1000ml) 250 mls @ 999 mls/hr IV .Q16M ONE Stop: 08/19/22 16:43 Last Infusion: 08/19/22 17:36 Dose: 0 mls/hr Documented By: Admin: 08/19/22 16:58 Dose: 999 mls/hr Documented By: LUIS Calcium Chloride 1,000 mg/ (Dextrose) 60 mls @ 240 mls/hr IV NOW STA Stop: 08/19/22 16:52 Last Infusion: 08/19/22 17:36 Dose: 0 mls/hr Documented By: Admin: 08/19/22 16:55 Dose: 240 mls/hr Documented By: OALokesh Insulin Human Regular (Novolin-R Insulin Per Unit Charge) 10 units IV NOW STA Stop: 08/19/22 16:39 Last Admin: 08/19/22 16:59 Dose: 10 units Documented By: LUIS Co-signed By: MEGGAN Ondansetron HCl (Ondansetron Inj 2 Mg/Ml 2 Ml Vial) 4 mg IV NOW STA Stop: 08/19/22 15:56 Last Admin: 08/19/22 16:00 Dose: 4 mg Documented By: LUIS Imaging Data Radiologist's Impression: KUB X-Ray 08/19/22 14:12 KUB CLINICAL HISTORY: Abdominal pain. COMPARISON STUDY: CT of the abdomen and pelvis July 22, [address] June 12, 2022. FINDINGS: Left pleural effusion with left basilar opacity is noted. There is pulmonary vascular congestion with suspected mild pulmonary edema. The bowel gas pattern is normal. Extensive vascular calcification and a peritoneal dialysis catheter incidentally noted. IMPRESSION: 1. No evidence for a bowel obstruction. 2. Left pleural effusion with associated left basilar opacity. Suspected mild interstitial pulmonary edema. ACT 112: Negative or not required by law. Electronically signed by: Sivakumar Renee M.D. 08/19/2022 2:52 PM Chest X-Ray 08/19/22 14:13 XR chest 1V portable CLINICAL HISTORY: abd pain TECHNIQUE: Single frontal radiograph of the chest was obtained. Comparison: Comparison is made to chest radiograph 06/12/2022 FINDINGS: No lines and tubes are seen. Cardiomegaly is noted. Prominence and cephalization of the vasculature is seen. Left retrocardiac opacity is seen. There is a moderate left pleural effusion, new from prior exam. IMPRESSION: 1. Moderate left pleural effusion, new from prior exam. Retrocardiac opacity likely represents atelectasis with or without superimposed pneumonia and/or aspiration 2. Cardiomegaly and mild pulmonary edema. ACT 112: Negative or not required by law. Electronically signed by: Jose Nicholson M.D. 08/19/2022 2:47 PM Discharge Plan Visit Data Chief Complaint: Abnormal Labs/Diagnostic Testing Stated Complaint: ABNORMAL LABS, AB & BACK PAIN ED Provider: Nemesio Bill Discharge Problem: Acute upper gastrointestinal bleeding, SOB (shortness of breath), Anemia, Pleural effusion on left, Acute hyperkalemia Patient Disposition: Being Evaluated by Hospitalist Discharge Instructions Interventions: ED Discharge Assessment Last Done: 08/19/22 19:57 Forms Stand Alone Forms: [employer] Prescriptions Prescriptions: No Action amlodipine 10 mg tablet 10 mg PO DAILY calcitriol 0.5 mcg capsule 1.5 mcg PO DAILY Rx Instructions: 3 capsule dose cinacalcet 30 mg tablet 30 mg PO DAILY hydralazine 100 mg tablet 100 mg PO QID RenaPlex-D 800 mcg-12.5 mg -2,000 unit Tablet 1 tab PO DAILY Mircera 200 mcg/0.3 mL syringe 200 mcg subcut MONTHLY colchicine 0.6 mg Tablet 1.2 mg PO Q6 PRN (Reason: gout flare) losartan 50 mg Tablet 50 mg PO BID ergocalciferol (vitamin D2) [Vitamin D2] 1,250 mcg (50,000 unit) Capsule 1,250 mcg PO WK metoprolol tartrate 25 mg tablet 25 mg PO BID allopurinol 100 mg tablet 100 mg PO DAILY carvedilol 6.25 mg tablet 6.25 mg PO BID clonidine 0.2 mg/24 hr patch weekly 0.2 mg transdermal WK Referrals Referrals: Mariel Walter DO [Primary Care Provider] - : Anemia Qualifiers: Anemia type: unspecified type Qualified Code(s): D64.9 - Anemia, unspecified
--- NOTE | 2022-08-19 14:48 | XRay Report ---
XR chest 1V portable CLINICAL HISTORY: abd pain TECHNIQUE: Single frontal radiograph of the chest was obtained. Comparison: Comparison is made to chest radiograph 06/12/2022 FINDINGS: No lines and tubes are seen. Cardiomegaly is noted. Prominence and cephalization of the vasculature i s seen. Left retrocardiac opacity is seen. There is a moderate left pleural effusion, new from prior exam. IMPRESSION: 1. Moderate left pleural effusion, new from prior exam. Retrocardiac opacity likely represents atele ctasis with or without superimposed pneumonia and/or aspiration 2. Cardiomegaly and mild pulmonary edema. ACT 112: Negative or not required by law. Electronically signed by: Jose Nicholson M.D. 08/19/2022 2:47 PM
--- NOTE | 2022-08-19 14:53 | XRay Report ---
KUB CLINICAL HISTORY: Abdominal pain. COMPARISON STUDY: CT of the abdomen and pelvis July 22, [address] June 12, 2022. FINDINGS: Left pleural effusion with left basilar opacity is noted. There is pulmonary vascular conge stion with suspected mild pulmonary edema. The bowel gas pattern is normal. Extensive vascular calcif ication and a peritoneal dialysis catheter incidentally noted. IMPRESSION: 1. No evidence for a bowel obstruction. 2. Left pleural effusion with associated left basilar opacity. Suspected mild interstitial pulmonary edema. ACT 112: Negative or not required by law. Electronically signed by: Sivakumar Renee M.D. 08/19/2022 2:52 PM
[2022-08-19 15:12] LABS: Basophils # (auto) 0.07 K/uL (0-0.2); Basophils % (auto) 0.6 %; Eosinophils # (auto) 0.69 K/uL (0-0.50); Eosinophils % (auto) 5.6 %; Hematocrit (blood only) 22.2 % (42.0-52.0); Immature Granulocytes % (auto) 0.8 %; Lymphocytes % (auto) 6.5 %; Mean Corpuscular Hemoglobin 26.3 pg (25.0-34.0); Mean Corpuscular Hgb Conc 31.5 g/dL (32.0-36.0); Mean Corpuscular Volume 83.5 fL (80.0-100.0); Mean Platelet Volume 12.1 fL (9.4-12.4); Monocytes # (auto) 1.16 K/uL (0.11-0.59); Monocytes % (auto) 9.4 %; Neutrophils % (auto) 77.1 %; Platelet Count 402 K/uL (130-400); RDW Coefficient of Variation 19.9 % (11.5-14.5); RDW Standard Deviation 58.1 fL (36.4-46.3); Red Blood Count 2.66 M/uL (4.70-6.10); White Blood Count 12.32 K/ul (4.8-10.8)
[2022-08-19 15:23] LABS: Partial Thromboplastin Ratio 1.2; Partial Thromboplastin Time 32.8 Seconds (21.0-31.0); Prothrombin Time 11.1 Seconds (9.0-12.0)
[2022-08-19 15:33] LABS: Anisocytosis Present; Polychromasia 1+; Schistocytes 1+; Target Cells 1+
--- NOTE | 2022-08-19 15:35 | Electrocardiogram Report ---
Test Reason : Blood Pressure : / mmHG Vent. Rate : 080 BPM Atrial Rate : 080 BPM P-R Int : 178 ms QRS Dur : 092 ms QT Int : 384 ms P-R-T Axes : 046 017 122 degrees QTc Int : 442 ms Normal sinus rhythm Possible Left atrial enlargement Poor R wave progression, consider anterior RI vs. lead placement vs. LVH Abnormal ECG When compared with ECG of 13-JUN-2022 05:59, No significant change was found Confirmed by Prabhu Abrams ([id number]) on 08/19/2022 3:35:28 PM Referred By: Mariel Walter Confirmed By:Juancho Abrams
[2022-08-19 15:46] LABS: Alanine Aminotransferase 14 U/L (7-52); Albumin Globulin Ratio 1.1 (0.9-2); Albumin Level 2.9 gm/dl (3.4-5.0); Alkaline Phosphatase 56 U/L (34-104); Anion Gap 16 (3-11); BUN Creatinine Ratio 7.1 (10-20); Bilirubin,Total 0.5 mg/dl (0.2-1.0); Blood Urea Nitrogen 97 mg/dl (6-23); Calcium 8.7 mg/dl (8.5-10.1); Carbon Dioxide 23 mmol/L (21-32); Chloride 97 mmol/L (98-107); Creatinine Clr Calc Pharmacy 5.1 ml/min; Est GFR (African American) 3.8 ml/min; Est GFR (Non-African American) 3.3 ml/min; Globulin 2.7 gm/dl (2.5-4.0); Glucose 74 mg/dl (70-99(Fasting)); Lipase 18 U/L (11-82); Sodium 136 mmol/L (136-145); Total Protein 5.6 gm/dl (6.0-8.3); Troponin I High Sensitivity 210.7 pg/ml (0-20)
[2022-08-19] MEDS ORDERED: ONDANSETRON INJ 2 MG/ML 2 ML VIAL IV STA (15:55)
[2022-08-19] MEDS ORDERED: fentaNYL citrate 100 MCG/2 ML VIAL IV STA (15:55)
[2022-08-19] MEDS ORDERED: SODIUM CHLORIDE 0.9% 250 ML IV PRN (16:27)
[2022-08-19 16:28] LABS: Potassium 6.2 mmol/L (3.5-5.1)
[2022-08-19] MEDS ORDERED: SODIUM CHLORIDE 0.9% 1000ML 250 ML IV ONE (16:28)
[2022-08-19] MEDS ORDERED: NovoLIN-R INSULIN PER UNIT CHARGE IV STA (16:38)
[2022-08-19] MEDS ORDERED: CALCIUM CHLORIDE 10% 1,000 MG in DEXTROSE 5% 50 ML IV STA (16:38)
[2022-08-19] MEDS ORDERED: DEXTROSE 50% 50 ML SYRINGE IV ONE (16:38)
--- NOTE | 2022-08-19 17:13 | History & Physical Report ---
Date of Service August 19, 2022 Assessment & Plan (1) Symptomatic anemia: Plan: Has been complaining of weakness and shortness of breath on exertion for the last 3 days 3 days ago hemoglobin noted to be around 6 as per the patient and was advised to come to the hospital for blood transfusion Denies any chest pain, palpitation or shortness of breath at rest Has been having black stool for the last few days-takes iron tablet as well Hemoglobin 7.0 in the emergency room Low hello hemoglobin could be secondary to chronic kidney disease. Upper GI bleed is suspected-intravenous Protonix drip has been started Will get GI evaluation Monitor H&H Will not give any blood transfusion tonight (2) Peritoneal dialysis status: Plan: Has been on peritoneal dialysis 4 times a day He takes care of dialysis by himself He does have a fistula on the left antecubital fossa Hyperkalemia Potassium was 6.2 Received insulin dextrose and calcium gluconate Will monitor K-if remains elevated at we can try Lokelma Will not have dialysis tonight Discussed with the office lead (3) ESRD (end stage renal disease) on dialysis: Plan: He is on the transplant team at [place] (4) Hypertension: Plan: Blood pressure has been high at 172/85 We will continue current medications Plan DVT prophylaxis Subcu heparin CODE STATUS Full History of Present Illness Chief Complaint: Weakness, tiredness and exertional shortness of breath Primary Care Provider: Mariel Walter DO The history was taken through [employer] translater: He is a 66-year-old Kazakh-speaking male with history of end-stage renal disease on peritoneal dialysis, hypertension, hyperlipidemia, secondary hyperp arathyroidism and prediabetes apparently has been complaining of shortness of breath with minimal exertion for some time. He had a blood test done in his doctor's office and hemoglobin was low at around 6 and he was advised to come to the hospital for blood transfusion. He is coming today with more shortness of breath on exertion. Complains to have black stool without any abdominal pain and at the same time he has been taking oral iron. He has some back pain but no chest pain and/or palpitation. No fever and or chills. No problem with his urine and or bowel habit.. He was noted to have a hemoglobin of 7.0 and he was noted to have BUN of 97 and creatinine 13.57 with a potassium of 6.2. He has end-stage renal disease and on peritoneal dialysis 4 times a day and he does it regularly at home. He has a fistula on the left antecubital fossa but has not been using it for hemodialysis. He is under transplant team for a possible kidney transplant down the line. Allergies Allergy/AdvReac Type Severity Reaction Status Date / Time No Known Allergies Allergy Verified 06/12/22 13:03 Home Medications Medication Instructions Recorded Confirmed Type amlodipine 10 mg tablet 10 mg PO DAILY 05/15/19 08/19/22 History ergocalciferol (vitamin D2) 1,250 1,250 mcg PO WK 10/28/20 08/19/22 History mcg (50,000 unit) capsule (Vitamin D2) losartan 50 mg tablet 50 mg PO BID 10/28/20 08/19/22 History allopurinol 100 mg tablet 100 mg PO DAILY 06/12/22 08/19/22 History carvedilol 6.25 mg tablet 6.25 mg PO BID 06/12/22 08/19/22 History clonidine 0.2 mg/24 hr weekly 0.2 mg transdermal WK 06/12/22 08/19/22 History transdermal patch metoprolol tartrate 25 mg tablet 25 mg PO BID 06/12/22 08/19/22 History calcitriol 0.5 mcg capsule 1.5 mcg PO DAILY 08/19/22 08/19/22 History cinacalcet 30 mg tablet 30 mg PO DAILY 08/19/22 08/19/22 History colchicine 0.6 mg tablet 1.2 mg PO Q6 PRN gout flare 08/19/22 08/19/22 History epoetin beta, methoxy peg 200 200 mcg subcut MONTHLY 08/19/22 08/19/22 History mcg/0.3 mL injection syringe (Mircera) hydralazine 100 mg tablet 100 mg PO QID 08/19/22 08/19/22 History vit B,C-folic ac 800 mcg-zinc 12.5 1 tab PO DAILY 08/19/22 08/19/22 History mg-selen-D3 2,000 unit-vit E tablet (RenaPlex-D) Past Med/Surg History Medical History (Updated 08/19/22 @ 17:04 by Taj Ramos MD) AV fistula NOT USABLE PER DAUGHTER Benign prostatic hyperplasia with urinary obstruction BPH (benign prostatic hyperplasia) Dialysis patient ONLY GETS PERITONEAL DIAYLSIS NOW End stage chronic kidney disease follows with Dr. Watt ESRD (end stage renal disease) on dialysis Hypertension Kidney transplant candidate reason for colonoscopy to get on list Nephrolithiasis Peritoneal dialysis catheter in place Peritoneal dialysis status per daughter--"in place with a hole" but currently not using Restless leg syndrome Surgical History H/O inguinal hernia repair History of colonoscopy History of cystoscopy History of thoracentesis History of tooth extraction Status post creation of arteriovenous fistula left arm Family History Other No family history of adverse response to anesthesia No significant family history Social History Smoking Status: Never smoker Second Hand Exposure: No; Hx Alcohol Use: No Hx Substance Use: No Preferred Language: Kazakh Communication Ability: Effective Communication Tools: IPad Payroll And Benefits Coordinator Required: Yes Beliefs That Will Affect Care: Zoroastrianism Zoroastrianism Beliefs: episcopalian marital status: Current Living Situation: Spouse current occupational status: employed Feels Safe at Home: Yes Assistive Devices: None Review of Systems Review of Systems: All systems reviewed and are unremarkable except as noted below Respiratory: Exertional shortness of breath Gastrointestinal: Black stool Physical Exam Physical Exam: Lying in bed comfortably Constitutional: + ill appearing and average body habitus Eyes: PERRL, conjunctivae normal, anicteric sclerae ENMT: external ear and nose normal, oropharynx normal Neck: trachea midline, no thyromegaly Respiratory: no respiratory distress Auscultation: lungs clear to auscultation bilaterally Cardiovascular: Rate/Rhythm: regular rate and regular rhythm; not tachycardic Heart Sounds: normal S1, normal S2 and + murmur (2/6 ESM over precordium) Extremities: + edema (Trace edema bilaterally) Gastrointestinal (Abdomen): Inspection/Auscultation: normal bowel sounds; abdomen not distended Percussion/Palpation: abdomen soft; abdomen nontender Musculoskeletal: No acute arthritis in any joint Results & Data Results & Data ([facility]) Vital Signs (Past 12 Hours) Vital Signs Temp Pulse Pulse Resp BP BP Pulse Ox 08/19/22 16:08 94 08/19/22 16:00 74 18 172/85 H 87 L 08/19/22 14:22 93 08/19/22 14:22 37 C 80 18 171/96 H 93 O2 Del Method O2 Flow Rate 08/19/22 16:08 Nasal Cannula 2 08/19/22 16:00 Room Air 08/19/22 14:22 Room Air 08/19/22 14:22 Room Air Laboratory Results Short CBC 08/19/22 Range/Units 14:52 WBC 12.32 H (4.8-10.8) K/ul Hgb 7.0 L (14.0-18.0) g/dl Hct 22.2 L (42.0-52.0) % Plt Count 402 H (130-400) K/uL BMP 08/19/22 08/19/22 14:52 14:53 Sodium 136 Potassium TNP 6.2 H* Chloride 97 L Carbon Dioxide 23 BUN 97 H Creatinine 13.57 H* Glucose 74 Calcium 8.7 Liver Function 08/19/22 08/19/22 Range/Units 14:52 14:53 Total Bilirubin 0.5 (0.2-1.0) mg/dl AST TNP 17 ALT 14 (7-52) U/L Alkaline Phosphatase 56 (34-104) U/L Albumin 2.9 L (3.4-5.0) gm/dl Medications Administered Current Inpatient Medications Sodium Chloride (Nss) 250 mls @ 15 mls/hr IV .[id number] PRN PRN Reason: For Transfusion Duration Stop: 08/20/22 02:28 Code Status & VTE Plan VTE Prophylaxis Plan VTE Prophylaxis will be ordered: Yes
--- NOTE | 2022-08-19 18:08 | Communication Note ---
Date of Service: August 19, 2022 Do not give any Blood transfusion tonight. DR Lokesh Ramos
[2022-08-19] MEDS ORDERED: SODIUM BICARB 8.4% INJ 50 MEQ/50 ML SYR IV STA (20:08)
[2022-08-19] MEDS ORDERED: COLCHICINE 0.6 MG TAB PO PRN (20:23)
[2022-08-19] MEDS ORDERED: carvediloL 6.25 MG TAB PO SCH (21:00)
[2022-08-19] MEDS ORDERED: SODIUM ZIRCONIUM CYCLOSILICATE 10 GM PACKET PO STA (21:13)
[2022-08-19 23:11] LABS: Hematocrit (blood only) 25.4 % (42.0-52.0); Hemoglobin 8.1 g/dl (14.0-18.0)
[2022-08-19] MEDS: hydrALAZINE TAB 50 MG TAB PO SCH (23:16)
[2022-08-19] MEDS: METOPROLOL TARTRATE 25 MG TAB PO SCH (23:17)
[2022-08-19] MEDS: PANTOprazole 40 MG in DEXTROSE 5% 100 ML IV SCH (23:17)
[2022-08-20] MEDS: CHECK CLONIDINE PATCH PLACEMENT SCH ×3 (00:12→16:17)
[2022-08-20] MEDS: amLODIPine BESYLATE 5 MG TAB PO SCH ×2 (02:17→07:58)
[2022-08-20 03:41] LABS: Basophils # (auto) 0.07 K/uL (0-0.2); Basophils % (auto) 0.6 %; Eosinophils # (auto) 0.45 K/uL (0-0.50); Eosinophils % (auto) 3.7 %; Hematocrit (blood only) 22.6 % (42.0-52.0); Hemoglobin 7.1 g/dl (14.0-18.0); Immature Granulocytes # (auto) 0.08 K/uL (0.01-0.20); Immature Granulocytes % (auto) 0.7 %; Lymphocytes # (auto) 0.74 K/uL (1.2-3.4); Lymphocytes % (auto) 6.1 %; Mean Corpuscular Hgb Conc 31.4 g/dL (32.0-36.0); Mean Corpuscular Volume 85.9 fL (80.0-100.0); Mean Platelet Volume 11.9 fL (9.4-12.4); Monocytes # (auto) 1.02 K/uL (0.11-0.59); Monocytes % (auto) 8.4 %; Neutrophils # (auto) 9.73 K/uL (1.40-6.50); Neutrophils % (auto) 80.5 %; Platelet Count 352 K/uL (130-400); RDW Coefficient of Variation 18.3 % (11.5-14.5); RDW Standard Deviation 56.4 fL (36.4-46.3); Red Blood Count 2.63 M/uL (4.70-6.10); White Blood Count 12.09 K/ul (4.8-10.8)
[2022-08-20] MEDS: guaiFENesin SUGAR FREE 200 MG/10 ML UDC PO PRN ×2 (03:50→20:22)
[2022-08-20] MEDS: PANTOprazole 40 MG in DEXTROSE 5% 100 ML IV SCH ×4 (03:51→20:54)
[2022-08-20 04:03] LABS: Hypochromasia Present
[2022-08-20 04:09] LABS: BUN Creatinine Ratio 7.5 (10-20); Calcium 8.7 mg/dl (8.5-10.1); Creatinine Clr Calc Pharmacy 5.2 ml/min; Est GFR (African American) 3.9 ml/min; Est GFR (Non-African American) 3.4 ml/min; Potassium 6.3 mmol/L (3.5-5.1)
[2022-08-20] MEDS ORDERED: STAT IV STA (04:27)
[2022-08-20] MEDS ORDERED: SODIUM BICARB 8.4% INJ 50 MEQ/50 ML SYR IV STA (04:27)
[2022-08-20] MEDS ORDERED: CALCIUM GLUCONATE 10% 1,000 MG in DEXTROSE 5% 50 ML IV ONE (04:27)
[2022-08-20] MEDS ORDERED: DEXTROSE 50% 50 ML SYRINGE IV ONE (04:45)
[2022-08-20] MEDS ORDERED: INSULIN HUMAN REGULAR PER UNIT 6 UNITS in SYRINGE 5.94 ML IV ONE (04:46)
[2022-08-20] MEDS: carvediloL 6.25 MG TAB PO SCH ×2 (05:21→20:21)
[2022-08-20] MEDS: METOPROLOL TARTRATE 25 MG TAB PO SCH ×2 (07:58→20:22)
[2022-08-20] MEDS: NEPHROCAPS PO SCH (07:58)
[2022-08-20] MEDS: allopurinoL 100 MG TAB PO SCH (07:59)
[2022-08-20] MEDS: hydrALAZINE TAB 50 MG TAB PO SCH ×4 (07:59→20:21)
[2022-08-20] MEDS: CALCITRIOL 0.25 MCG CAPSULE PO SCH (07:59)
[2022-08-20] MEDS: CINACALCET HCL 30 MG TAB PO SCH (07:59)
--- NOTE | 2022-08-20 08:55 | Nephrology Consultation ---
Date of Consultation August 20, 2022 Assessment & Plan (1) ESRD (end stage renal disease) on dialysis: PD is maximal for this pt (he literally dialyzes > 15 hrs daily) and still his labs show inadequate dialysis given K, phos, creatinine, volume overload; +/- anemia. -trial of hemodialysis while here using AVF; if AVF won't run, would not likely do temp cath; would first try PD very intensively. HD will control K and volume more effectively -I see no phos binders on his med list; reviewed OP dialysis meds and no binders there; started medium dose phosLo -daily bm needed as PD patient > will start stool softeners w/ hold parameters -started phosLo 3ac; he is on no binders and clearly needs them -colchicine dose is inappropriate for PD and stopped it -continue dialysis diet; added 1.2 L FR (2) Symptomatic anemia: po iron is inappropriate for dialysis pts > not adequately absorbed; he will get IV iron if indicated at HD -20K units of epo w/ HD today >> t sat won't be accurate and on 07/28 was 10% on outside labs; will give 200 mg venofer q tx x 5 -for another unit pRBC > recommend leukopoor given txplt hopes -f/u GI recs -on protonix gtt (3) Hyperkalemia: present for > week based on OP labs >managed medically and w/ HD -he had dose of lokelma; he had IV insulin 6 and then 10 units yesterday (4) Pleural effusion: new L pleural effusion >> suspect this is cause of post L thoracic pain; per primary service; not likely to be removed w/ HD History of Present Illness Reason for Consultation: ESRD on PD Requesting Physician: Dr Ramos Attending Physician: Anne Marie Garcia MD History of Present Illness 66 y/o Chadian speaking M whom I'm asked to see for ESRD on PD was admitted last evening after presenting with symptomatic anemia w/ outside labs showing low hgb<7. His presenting hgb was 7; w/ K 6.2 and creatinine 13.6. K was managed medically and is 5.8 this AM. He is anuric. He had one unit pRBC last evening. He apparently has been taking po iron at home though this is not on his med list. 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 He dialyzes under the care of Dr Florence at [facility] in [place]; he tells me that his OP rx is 5 x 2L exchanges over 10 hrs on the cycler and 3 x 2L exchanges by day. He shows me labs from this month's PD clinic visit with phos 10, K 6.7, hgb 6.9, Kt/v total 2.38. He denies drain pain or challenges doing the exchanges. does state he feels he does dialysis all the time. His daughter is on the phone for the evaluation. At pt and her request she translates. He states that he has been having generalized weakness and light headedness for a few weeks w/ L posterior thorax pain. no orthopnea. no cough. some mild exertional dyspnea. moves bowels every 24-48 hrs and no blood in stool. no hemoptysis; no reported sources of bleeding. no chest pain, no n/v. no abdominal pain. Does c/o months of generalized itching. He had one unit pRBC in ER yesterday. After admitting team talked to me, his K was managed medically and I advised no further transfusions be given pending performing dialysis. He presented late in the day after our dialysis nurses we re no longer available. He brought supplies for manual exchanges but was advised not to perform these while in hospital. Allergies Allergy/AdvReac Type Severity Reaction Status Date / Time No Known Allergies Allergy Verified 06/12/22 13:03 Home Medications Medication Instructions Recorded Confirmed Type amlodipine 10 mg tablet 10 mg PO DAILY 05/15/19 08/19/22 History ergocalciferol (vitamin D2) 1,250 1,250 mcg PO WK 10/28/20 08/19/22 History mcg (50,000 unit) capsule (Vitamin D2) losartan 50 mg tablet 50 mg PO BID 10/28/20 08/19/22 History allopurinol 100 mg tablet 100 mg PO DAILY 06/12/22 08/19/22 History carvedilol 6.25 mg tablet 6.25 mg PO BID 06/12/22 08/19/22 History clonidine 0.2 mg/24 hr weekly 0.2 mg transdermal WK 06/12/22 08/19/22 History transdermal patch metoprolol tartrate 25 mg tablet 25 mg PO BID 06/12/22 08/19/22 History calcitriol 0.5 mcg capsule 1.5 mcg PO DAILY 08/19/22 08/19/22 History cinacalcet 30 mg tablet 30 mg PO DAILY 08/19/22 08/19/22 History colchicine 0.6 mg tablet 1.2 mg PO Q6 PRN gout flare 08/19/22 08/19/22 History epoetin beta, methoxy peg 200 200 mcg subcut MONTHLY 08/19/22 08/19/22 History mcg/0.3 mL injection syringe (Mircera) hydralazine 100 mg tablet 100 mg PO QID 08/19/22 08/19/22 History vit B,C-folic ac 800 mcg-zinc 12.5 1 tab PO DAILY 08/19/22 08/19/22 History mg-selen-D3 2,000 unit-vit E tablet (RenaPlex-D) Patient History Medical History (Updated 08/20/22 @ 11:06 by Rita Munson MD, PhD) AV fistula Benign prostatic hyperplasia with urinary obstruction ESRD (end stage renal disease) on dialysis PD patient; follows with Dr. Florence in [place]; 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 Hypertension Kidney transplant candidate reason for colonoscopy to get on list Nephrolithiasis Peritoneal dialysis catheter in place Restless leg syndrome Surgical History H/O inguinal hernia repair History of colonoscopy History of cystoscopy History of thoracentesis History of tooth extraction Status post creation of arteriovenous fistula left arm Family History Other No family history of adverse response to anesthesia No significant family history Social History Smoking Status: Never smoker Second Hand Exposure: No; Do You Dip or Chew Tobacco: No; Hx Alcohol Use: No Hx Substance Use: No Preferred Language: Chadian Communication Ability: Effective Communication Tools: IPad Hand Paster Required: Yes Beliefs That Will Affect Care: None marital status: Current Living Situation: Spouse current occupational status: employed Feels Safe at Home: Yes Safety Concerns: Feels Safe At This Time Assistive Devices: Glasses Review of Systems Review of Systems: All systems reviewed & are unremarkable except as noted in HPI & below Physical Exam Constitutional: well developed, average body habitus, + language barrier, + frail appearing (appears older than stated age) and cooperative; no acute distress Eyes: eomi; nonicteric ENMT: MMM Neck: supple Respiratory: normal respiratory effort; no respiratory distress, no labored breathing, no cough, not tachypneic and no paradoxical thoraco-abdominal movemnt Auscultation: + diminished lung sounds (L base) and + crackles Cardiovascular: Rate/Rhythm: regular rate and regular rhythm Extremities: + edema (3+ pedal, 1+ ankle; no dependent) and + AV fistula (+ t/b) Gastrointestinal (Abdomen): Inspection/Auscultation: abdomen normal to inspection (PD cath present) and normal bowel sounds Percussion/Palpation: abdomen soft; abdomen nontender and no guarding Skin: ashen complected Neurologic: sim, fluent speech, no tremor Psychiatric: Orientation: alert and oriented x 3 Speech: normal rate/rhythm/volume of speech Results & Data ([facility]) Vital Signs (Past 12 Hours) Vital Signs Temp Pulse Pulse Resp BP Pulse Ox O2 Del Method 08/20/22 07:47 36.9 C 90 16 165/92 H 95 Room Air 08/20/22 07:19 84 08/20/22 03:35 36.7 C 76 18 175/95 H 95 Room Air 08/20/22 01:22 77 18 94 Room Air 08/20/22 00:51 83 08/20/22 00:48 88 08/19/22 23:52 Room Air 08/19/22 23:06 36.7 C 89 18 168/89 H 91 Room Air Laboratory Results 08/20/22 03:00 08/20/22 06:13 Diagnostic Findings cxr 1. Moderate left pleural effusion, new from prior exam. Retrocardiac opacity likely represents atelectasis with or without superimposed pneumonia and/or aspiration 2. Cardiomegaly and mild pulmonary edema. KUB FINDINGS: Left pleural effusion with left basilar opacity is noted. There is pulmonary vascular congestion with suspected mild pulmonary edema. The bowel gas pattern is normal. Extensive vascular calcification and a peritoneal dialysis catheter incidentally noted. IMPRESSION: 1. No evidence for a bowel obstruction. 2. Left pleural effusion with associated left basilar opacity. Suspected mild interstitial pulmonary edema. ECG reviewed
[2022-08-20] MEDS ORDERED: amLODIPine BESYLATE 5 MG TAB PO SCH (09:00)
[2022-08-20] MEDS ORDERED: SODIUM CHLORIDE 0.9% 250 ML IV PRN (10:13)
[2022-08-20] MEDS ORDERED: SODIUM CHLORIDE 0.9% 1000ML 1,000 ML IV PRN (10:24)
[2022-08-20] MEDS ORDERED: HEPARIN SOD (PORCINE) 1000 UNIT/ML IV ONE (10:24)
[2022-08-20] MEDS ORDERED: EPOETIN ALFA 20,000 UNITS/ML VIAL IV ONE ×2 (10:45→13:45)
[2022-08-20 11:16] LABS: Iron 30 mcg/dl (35-175); Total Iron Binding Cap Calc 142 mcg/dl (250-450); Transferrin (FE) Percent Satur 21 % (20-50); Unsaturated Iron Binding Cap 112 mcg/dl (155-355)
[2022-08-20] MEDS ORDERED: IRON SUCROSE 200 MG in SYRINGE 0 ML IV SCH ×2 (12:00→13:45)
[2022-08-20] MEDS: HEPARIN SOD (PORCINE) 1000 UNIT/ML IV SCH ×3 (12:35→13:33)
--- NOTE | 2022-08-20 15:18 | Gastrointestinal Consultation ---
Date of Consultation August 20, 2022 Assessment & Plan (1) ESRD (end stage renal disease) on dialysis: (2) Symptomatic anemia: (3) Melena: Continue Protonix gtt at 8 mg/hour Check stool for H. pylori Ag Continue supportive care and transfusion PRN to maintain H/H around 8/24 Consider EGD during this admission, though no emergent need at this time. History of Present Illness Reason for Consultation: Black stools Attending Physician: Anne Marie Garcia MD History of Present Illness Brad De La Rosa is a 66 yo male who presented to the ER yesterday with complaints of weakness, SOB and black stools. He does have a history of ESRD and receives hemodialysis 3 times per week. He states that earlier this week he had a Hgb around 6 on routine blood testing. He states that he was advised to come to the hospital to receive a transfusion. He also states that over the past week he has noted black stools, which he attributed to iron therapy. He was admitted and received 2 u PRBC, and was started on a Protonix gtt. At the time I was the patient he was receiving hemodialysis, and our discussion was aided with a phone cayman islander to spanish translation lacie. He states that he feels improved since his arrival. He denies any abdominal pain, fevers, chills, nausea, vomiting, hematemesis, or hematochezia. He admits to having a black stool earlier today, but has not had any further BM's. He states that he does not take PPI therapy at home, and does not have any history of PUD. He states his last EGD was at the time of a pre-renal transplant evaluation approximately 2 years ago, and was normal. He denies any further complaints at present. Allergies Allergy/AdvReac Type Severity Reaction Status Date / Time No Known Allergies Allergy Verified 06/12/22 13:03 Home Medications Medication Instructions Recorded Confirmed Type amlodipine 10 mg tablet 10 mg PO DAILY 05/15/19 08/19/22 History ergocalciferol (vitamin D2) 1,250 1,250 mcg PO WK 10/28/20 08/19/22 History mcg (50,000 unit) capsule (Vitamin D2) losartan 50 mg tablet 50 mg PO BID 10/28/20 08/19/22 History allopurinol 100 mg tablet 100 mg PO DAILY 06/12/22 08/19/22 History carvedilol 6.25 mg tablet 6.25 mg PO BID 06/12/22 08/19/22 History clonidine 0.2 mg/24 hr weekly 0.2 mg transdermal WK 06/12/22 08/19/22 History transdermal patch metoprolol tartrate 25 mg tablet 25 mg PO BID 06/12/22 08/19/22 History calcitriol 0.5 mcg capsule 1.5 mcg PO DAILY 08/19/22 08/19/22 History cinacalcet 30 mg tablet 30 mg PO DAILY 08/19/22 08/19/22 History colchicine 0.6 mg tablet 1.2 mg PO Q6 PRN gout flare 08/19/22 08/19/22 History epoetin beta, methoxy peg 200 200 mcg subcut MONTHLY 08/19/22 08/19/22 History mcg/0.3 mL injection syringe (Mircera) hydralazine 100 mg tablet 100 mg PO QID 08/19/22 08/19/22 History vit B,C-folic ac 800 mcg-zinc 12.5 1 tab PO DAILY 08/19/22 08/19/22 History mg-selen-D3 2,000 unit-vit E tablet (RenaPlex-D) Patient History Medical History AV fistula Benign prostatic hyperplasia with urinary obstruction ESRD (end stage renal disease) on dialysis PD patient; follows with Dr. 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 Hypertension Kidney transplant candidate reason for colonoscopy to get on list Nephrolithiasis Peritoneal dialysis catheter in place Restless leg syndrome Surgical History H/O inguinal hernia repair History of colonoscopy History of cystoscopy History of thoracentesis History of tooth extraction Status post creation of arteriovenous fistula left arm Family History Other No family history of adverse response to anesthesia No significant family history Social History Smoking Status: Never smoker Second Hand Exposure: No; Do You Dip or Chew Tobacco: No; Hx Alcohol Use: No Hx Substance Use: No Preferred Language: Namibian Communication Ability: Effective Communication Tools: IPad Sole Ruffer Required: Yes Beliefs That Will Affect Care: None marital status: Current Living Situation: Spouse current occupational status: employed Feels Safe at Home: Yes Safety Concerns: Feels Safe At This Time Assistive Devices: Glasses Review of Systems Review of Systems: All systems reviewed & are unremarkable except as noted in Subjective Physical Exam Constitutional: + ill appearing (chronic); no acute distress Eyes: + anicteric sclerae ENMT: external ear and nose normal, oropharynx normal Neck: normal visual inspection Respiratory: normal respiratory effort, lungs clear to auscultation Cardiovascular: RRR, no murmur, no edema Gastrointestinal (Abdomen): normal bowel sounds, soft, nontender, no hepatosplenomegaly Skin: + pallor; no rashes Psychiatric: A+Ox3, euthymic affect Results & Data ([facility]) Vital Signs (Past 12 Hours) Vital Signs Temp Pulse Pulse Pulse Resp BP BP 08/20/22 14:30 81 180/90 H 08/20/22 14:00 82 174/79 H 08/20/22 13:30 82 170/97 H 08/20/22 13:00 79 169/90 H 08/20/22 12:52 36.7 C 79 18 166/97 H 08/20/22 12:30 76 169/95 H 08/20/22 12:15 36.7 C 80 161/84 H 08/20/22 12:00 36.7 C 77 167/92 H 08/20/22 11:30 76 175/89 H 08/20/22 11:22 59 L 161/82 H 08/20/22 11:11 36.8 C 76 08/20/22 12:00 36.7 C 77 18 167/92 H 08/20/22 08:00 08/20/22 07:47 36.9 C 90 16 165/92 H 08/20/22 07:19 84 08/20/22 03:35 36.7 C 76 18 175/95 H Pulse Ox O2 Del Method 08/20/22 14:30 08/20/22 14:00 08/20/22 13:30 08/20/22 13:00 08/20/22 12:52 08/20/22 12:30 08/20/22 12:15 08/20/22 12:00 08/20/22 11:30 08/20/22 11:22 08/20/22 11:11 08/20/22 12:00 08/20/22 08:00 Room Air 08/20/22 07:47 95 Room Air 08/20/22 07:19 08/20/22 03:35 95 Room Air PG Care Time/CCT Total # of Minutes Spent Total Time Spent with Patient: Total time spent is greater than 50% in coordination of care (as documented) at patient's floor/unit and/or counseling patient: Coding Level of Care Code INP/OBS CONSULT LVL 3, 45 MIN Diagnoses ESRD (end stage renal disease) on dialysis N18.6; Z99.2 Symptomatic anemia D64.9 Melena K92.1
--- NOTE | 2022-08-20 15:20 | Hospitalist Progress Note ---
Date of Service August 20, 2022 Assessment & Plan (1) Symptomatic anemia: Plan: Has been complaining of weakness and shortness of breath on exertion for the last 3 days 3 days ago hemoglobin noted to be around 6 as per the patient and was advised to come to the hospital for blood transfusion Hgb on admission 7, received 1 unit PRBC increased to 8.1 yesterday Now Hgb 7.1 today iron level 30, TIBC 142 are low Will transfused 1 unit prbc during dialysis will give IV iron today Gastro on board recommended to continue PPI Consider EGD during this admission as per GI Continue monitor H/H and transfuse if hgb drops below 8 (2) ESRD (end stage renal disease) on dialysis: (3) Peritoneal dialysis status: Plan: He is on the transplant team at [place] Currently peritoneal dialysis 4 times a day at home Nephrology on board Plan to HD today Continue monitor electrolytes Electrolytes abnormality Potassium was 6.2 on admission Received insulin dextrose and calcium gluconate Potassium 5.8 today Will get HD today Continue monitor electrolytes Elevated troponin Due to ESRD Denies any chest pain Continue monitor (4) Hypertension: Plan: Elevated BP continue current medications Plan DVT prophylaxis Subcu heparin CODE STATUS Full Admission and Anticipated Discharge Date Admission Date: August 19, 2022 Subjective Pt was seen and examined for follow up of anemia and ESRD Sitting in bed with no acute distress Bridge Leverman was used to communicate with the patient. Pt said that he feels ok He said that he does not think the dark stool is from GI bleed because he is on Iron supplement he is scheduled to get HD today denies any chest pain, palpitation, dizziness and SOB Review of Systems Review of Systems: All systems reviewed & are unremarkable except as noted in Subjective Physical Exam Physical Exam: General- No acute distress Head- atraumatic Eyes- PERRL, EOMI, ENT- oropharynx clear Neck- supple, no JVD Lungs- clear to auscultation Heart- regular rhythm; + murmur Abdomen- normal bowel sounds, soft, nontender Extremities- no calf tenderness, +edema Neuro- alert, oriented x 3; PERRL, EOMI; no facial palsy; no dysarthria Skin- warm & dry Results & Data Results & Data ([facility]) Vital Signs (Past 12 Hours) Vital Signs Temp Pulse Pulse Pulse Resp BP BP 08/20/22 14:30 81 180/90 H 08/20/22 14:00 82 174/79 H 08/20/22 13:30 82 170/97 H 08/20/22 13:00 79 169/90 H 08/20/22 12:52 36.7 C 79 18 166/97 H 08/20/22 12:30 76 169/95 H 08/20/22 12:15 36.7 C 80 161/84 H 08/20/22 12:00 36.7 C 77 167/92 H 08/20/22 11:30 76 175/89 H 08/20/22 11:22 59 L 161/82 H 08/20/22 11:11 36.8 C 76 08/20/22 12:00 36.7 C 77 18 167/92 H 08/20/22 08:00 08/20/22 07:47 36.9 C 90 16 165/92 H 08/20/22 07:19 84 08/20/22 03:35 36.7 C 76 18 175/95 H Pulse Ox O2 Del Method 08/20/22 14:30 08/20/22 14:00 08/20/22 13:30 08/20/22 13:00 08/20/22 12:52 08/20/22 12:30 08/20/22 12:15 08/20/22 12:00 08/20/22 11:30 08/20/22 11:22 08/20/22 11:11 08/20/22 12:00 08/20/22 08:00 Room Air 08/20/22 07:47 95 Room Air 08/20/22 07:19 08/20/22 03:35 95 Room Air
[2022-08-20] MEDS: CALCIUM ACETATE 667 MG CAP/TAB PO SCH ×2 (15:42→17:00)
[2022-08-20] MEDS: DOCUSATE SODIUM 100 MG CAP PO SCH ×2 (15:42→20:21)
--- NOTE | 2022-08-20 16:27 | Dialysis Progress Note ---
Date of Service August 20, 2022 Assessment & Plan (1) ESRD (end stage renal disease) on dialysis: Plan: PD is maximal for this pt (he literally dialyzes > 15 hrs daily) and still his labs show inadequate dialysis given K, phos, creatinine, volume overload; +/- anemia. -trial of hemodialysis while here using AVF; HD will control K and volume more effectively in near term -AVF runs ok/ no issues reported -I see no phos binders on his med list; reviewed OP dialysis meds and no binders there; started medium dose phosLo -daily bm needed as PD patient > will start stool softeners w/ hold parameters; pt aware -colchicine dose is inappropriate for PD and stopped it -continue dialysis diet; added 1.2 L FR (2) Symptomatic anemia: Plan: po iron is inappropriate for dialysis pts > not adequately absorbed; he will get IV iron if indicated at HD -20K units of epo w/ HD today >> t sat won't be accurate and on 07/28 was 10% on outside labs; will give 200 mg venofer q tx x 5 -for another unit pRBC > recommend leukopoor given txplt hopes adn d/w primary service -f/u GI recs -on protonix gtt (3) Hyperkalemia: Plan: present for > week based on OP labs >managed medically and w/ HD -he had dose of lokelma; he had IV insulin 6 and then 10 units yesterday (4) Pleural effusion: Plan: new L pleural effusion >> suspect this is cause of post L thoracic pain; per primary service; not likely to be removed w/ HD Admission and Anticipated Discharge Date Admission Date: August 19, 2022 Subjective seen on HD at about 1130; tolerating tx well; wants to remove only 2L d/t concern about cramp > that's fine Review of Systems Review of Systems: All systems reviewed & are unremarkable except as noted in Subjective Physical Exam Constitutional: well developed, average body habitus, + language barrier, + frail appearing (appears older than stated age) and cooperative; no acute distress Respiratory: normal respiratory effort; no respiratory distress, no labored breathing, no cough, not tachypneic and no paradoxical thoraco-abdominal movemnt Auscultation: + diminished lung sounds (L base) and + crackles Cardiovascular: Rate/Rhythm: regular rate and regular rhythm Extremities: + edema (3+ pedal, 1+ ankle; no dependent) and + AV fistula (+ t/b) Gastrointestinal (Abdomen): Inspection/Auscultation: abdomen normal to inspection (PD cath present) and normal bowel sounds Percussion/Palpation: abdomen soft; abdomen nontender and no guarding Psychiatric: Orientation: alert and oriented x 3 Speech: normal rate/rhythm/volume of speech Results & Data ([facility]) Vital Signs (Past 12 Hours) Vital Signs Temp Pulse Pulse Pulse Resp BP BP 08/20/22 15:41 36.7 C 86 20 165/82 H 08/20/22 14:55 36.7 C 84 170/88 H 08/20/22 14:30 81 180/90 H 08/20/22 14:00 82 174/79 H 08/20/22 13:30 82 170/97 H 08/20/22 13:00 79 169/90 H 08/20/22 12:52 36.7 C 79 18 166/97 H 08/20/22 12:30 76 169/95 H 08/20/22 12:15 36.7 C 80 161/84 H 08/20/22 12:00 36.7 C 77 167/92 H 08/20/22 11:30 76 175/89 H 08/20/22 11:22 59 L 161/82 H 08/20/22 11:11 36.8 C 76 08/20/22 12:00 36.7 C 77 18 167/92 H 08/20/22 08:00 08/20/22 07:47 36.9 C 90 16 165/92 H 08/20/22 07:19 84 Pulse Ox O2 Del Method 08/20/22 15:41 92 Room Air 08/20/22 14:55 08/20/22 14:30 08/20/22 14:00 08/20/22 13:30 08/20/22 13:00 08/20/22 12:52 08/20/22 12:30 08/20/22 12:15 08/20/22 12:00 08/20/22 11:30 08/20/22 11:22 08/20/22 11:11 08/20/22 12:00 08/20/22 08:00 Room Air 08/20/22 07:47 95 Room Air 01/28/23 07:19 Laboratory Results reviewed
[2022-08-21] MEDS: CHECK CLONIDINE PATCH PLACEMENT SCH ×3 (01:05→16:50)
[2022-08-21] MEDS ORDERED: amLODIPine BESYLATE 5 MG TAB PO SCH (01:30)
[2022-08-21] MEDS: PANTOprazole 40 MG in DEXTROSE 5% 100 ML IV SCH ×6 (01:50→22:25)
[2022-08-21] MEDS: hydrALAZINE TAB 50 MG TAB PO SCH ×4 (02:55→20:14)
[2022-08-21 07:00] LABS: Hematocrit (blood only) 25.3 % (42.0-52.0); Hemoglobin 8.1 g/dl (14.0-18.0); Mean Corpuscular Hemoglobin 27.6 pg (25.0-34.0); Mean Corpuscular Volume 86.3 fL (80.0-100.0); Mean Platelet Volume 11.4 fL (9.4-12.4); Platelet Count 332 K/uL (130-400); RDW Coefficient of Variation 17.8 % (11.5-14.5); Red Blood Count 2.93 M/uL (4.70-6.10); White Blood Count 11.48 K/ul (4.8-10.8)
[2022-08-21 07:30] LABS: Calcium 8.7 mg/dl (8.5-10.1); Magnesium 1.7 mg/dl (1.7-2.4)
[2022-08-21 07:41] LABS: BUN Creatinine Ratio 5.4 (10-20); Creatinine Clr Calc Pharmacy 8.3 ml/min; Est GFR (African American) 6.9 ml/min; Phosphorus 5.9 mg/dl (2.5-4.9)
[2022-08-21] MEDS: METOPROLOL TARTRATE 25 MG TAB PO SCH ×2 (08:36→20:15)
[2022-08-21] MEDS: CALCIUM ACETATE 667 MG CAP/TAB PO SCH ×3 (08:36→16:50)
[2022-08-21] MEDS: allopurinoL 100 MG TAB PO SCH (08:36)
[2022-08-21] MEDS: CINACALCET HCL 30 MG TAB PO SCH (08:36)
[2022-08-21] MEDS: DOCUSATE SODIUM 100 MG CAP PO SCH ×2 (08:36→20:15)
[2022-08-21] MEDS: NEPHROCAPS PO SCH (08:37)
[2022-08-21] MEDS: CALCITRIOL 0.25 MCG CAPSULE PO SCH (08:37)
[2022-08-21] MEDS: carvediloL 6.25 MG TAB PO SCH ×2 (08:37→20:16)
[2022-08-21] MEDS ORDERED: IRON SUCROSE 200 MG in SYRINGE 0 ML IV SCH ×2 (12:00→13:30)
--- NOTE | 2022-08-21 16:42 | Hospitalist Progress Note ---
Date of Service August 21, 2022 Assessment & Plan (1) Symptomatic anemia: Plan: Has been complaining of weakness and shortness of breath on exertion for the last 3 days 3 days ago hemoglobin noted to be around 6 as per the patient and was advised to come to the hospital for blood transfusion Hgb on admission 7, received 2 unit PRBC so far during hospital course Now Hgb 8.1 today iron level 30, TIBC 142 are low received IV iron on 08/20/22 Gastro on board recommended to continue PPI Consider EGD during this admission as per GI Continue monitor H/H and transfuse if hgb drops below 8 (2) ESRD (end stage renal disease) on dialysis: (3) Peritoneal dialysis status: Plan: He is on the transplant team at [place] Currently peritoneal dialysis 4 times a day at home Nephrology on board Continue monitor electrolytes Electrolytes abnormality Potassium was 6.2 on admission Received insulin dextrose and calcium gluconate Potassium 5 today Continue monitor electrolytes Elevated troponin Due to ESRD Denies any chest pain Continue monitor Left arm swelling/tenderness Will get venous doppler u/s Encourage to keep LUE elevates Pain control (4) Hypertension: Plan: Elevated BP continue current medications Plan DVT prophylaxis Subcu heparin CODE STATUS Full Admission and Anticipated Discharge Date Admission Date: August 19, 2022 Subjective Pt was seen and examined for follow up of anemia and ESRD Sitting in bed with no acute distress Family Program Specialist was used to communicate with the patient. his left arm is swelling and tender He said that he is not having any dark stools denies any chest pain, palpitation, dizziness and SOB Review of Systems Review of Systems: All systems reviewed & are unremarkable except as noted in Subjective Physical Exam Physical Exam: General- No acute distress Head- atraumatic Eyes- PERRL, EOMI, ENT- oropharynx clear Neck- supple, no JVD Lungs- clear to auscultation Heart- regular rhythm; + murmur Abdomen- normal bowel sounds, soft, nontender Extremities- no calf tenderness, +edema Neuro- alert, oriented x 3; PERRL, EOMI; no facial palsy; no dysarthria Skin- warm & dry Results & Data Results & Data ([facility]) Vital Signs (Past 12 Hours) Vital Signs Temp Pulse Pulse Resp BP Pulse Ox O2 Del Method 08/21/22 15:49 36.9 C 81 20 168/85 H 94 Room Air 08/21/22 15:44 81 08/21/22 12:14 37.4 C 88 16 177/101 H 95 Room Air 08/21/22 08:00 Room Air 08/21/22 08:05 37.1 C 93 H 16 173/81 H 93 Room Air 08/21/22 07:43 88
--- NOTE | 2022-08-21 18:21 | Ultrasound Report ---
LEFT UPPER EXTREMITY VENOUS DOPPLER ULTRASOUND CLINICAL HISTORY: left arm swelling and tenderness COMPARISON STUDY: No previous studies for comparison. TECHNIQUE: Sonography of the venous system of the left upper extremity was performed. FINDINGS: No venous thrombus was identified within the left upper extremity. Left upper extremity AV fistula is patent. Mildly elevated velocities within the fistula are likely within normal limits. No hematoma is noted within the left upper extremity. IMPRESSION: 1. No venous thrombus within the left upper extremity. 2. Patent left upper extremity AV fistula. ACT 112: Negative or not required by law. Electronically signed by: Sivakumar Renee M.D. 08/21/2022 6:20 PM
[2022-08-22] MEDS: CHECK CLONIDINE PATCH PLACEMENT SCH ×3 (00:19→17:12)
[2022-08-22] MEDS: PANTOprazole 40 MG in DEXTROSE 5% 100 ML IV SCH ×3 (03:36→12:42)
[2022-08-22] MEDS: carvediloL 3.125 MG TAB PO SCH ×2 (05:48→21:40)
[2022-08-22] MEDS ORDERED: ceFAZolin 2000MG 2,000 MG/15 ML SYR IV ONE (06:00)
[2022-08-22] MEDS ORDERED: IRON SUCROSE 200 MG in SYRINGE 0 ML IV ONE (07:52)
[2022-08-22] MEDS ORDERED: HEPARIN SOD (PORCINE) 1000 UNIT/ML IV ONE (07:52)
[2022-08-22] MEDS ORDERED: SODIUM CHLORIDE 0.9% 1000ML 1,000 ML IV PRN (07:52)
[2022-08-22 08:00] LABS: Hematocrit (blood only) 25.7 % (42.0-52.0); Hemoglobin 8.3 g/dl (14.0-18.0); Mean Corpuscular Hemoglobin 27.6 pg (25.0-34.0); Mean Corpuscular Hgb Conc 32.3 g/dL (32.0-36.0); Mean Corpuscular Volume 85.4 fL (80.0-100.0); Mean Platelet Volume 11.8 fL (9.4-12.4); Platelet Count 386 K/uL (130-400); RDW Coefficient of Variation 18.1 % (11.5-14.5); RDW Standard Deviation 56.5 fL (36.4-46.3); Red Blood Count 3.01 M/uL (4.70-6.10); White Blood Count 15.01 K/ul (4.8-10.8)
[2022-08-22] MEDS ORDERED: EPOETIN ALFA 10,000 UNITS/ML VIAL IV ONE (08:15)
[2022-08-22 08:40] LABS: Calcium 8.8 mg/dl (8.5-10.1); Potassium 5.5 mmol/L (3.5-5.1)
[2022-08-22 08:48] LABS: BUN Creatinine Ratio 5.5 (10-20); Creatinine Clr Calc Pharmacy 6.7 ml/min; Est GFR (African American) 5.3 ml/min; Est GFR (Non-African American) 4.6 ml/min; Phosphorus 5.6 mg/dl (2.5-4.9)
[2022-08-22] MEDS: amLODIPine BESYLATE 5 MG TAB PO SCH (09:17)
[2022-08-22] MEDS: CINACALCET HCL 30 MG TAB PO SCH (09:18)
[2022-08-22] MEDS: CALCITRIOL 0.25 MCG CAPSULE PO SCH (09:18)
[2022-08-22] MEDS: allopurinoL 100 MG TAB PO SCH (09:18)
[2022-08-22] MEDS: NEPHROCAPS PO SCH (09:18)
[2022-08-22] MEDS: DOCUSATE SODIUM 100 MG CAP PO SCH ×2 (09:19→21:40)
[2022-08-22] MEDS: METOPROLOL TARTRATE 25 MG TAB PO SCH ×2 (09:19→21:39)
[2022-08-22] MEDS: hydrALAZINE TAB 50 MG TAB PO SCH ×4 (09:20→21:40)
[2022-08-22] MEDS: CALCIUM ACETATE 667 MG CAP/TAB PO SCH ×3 (09:21→17:12)
--- NOTE | 2022-08-22 11:17 | Consultation ---
Date of Consultation August 22, 2022 Assessment & Plan (1) ESRD (end stage renal disease) on dialysis: Pt with L forearm/hand edema after single HD session. No problems with HD, per RN. US does not demonstrate any abnormalities. Edema may be indicative of a more central/intrathoracic venous stenosis. Recommend pt consider fistulagram/venogram with intervention, however, pt is reluctant to have procedures. Pt also seen by Dr Viera today. After further discussion with pt, he is agreeable to LUE fistulagram/venogram in OR tomorrow. His daughter was on the phone at pt's request as well. Patient was seen, examined, and chart reviewed. Agree with exam and treatment plan of the Vascular PA. History of Present Illness Reason for Consultation: LUE edema Attending Physician: Anne Marie Garcia MD History of Present Illness 66 yo m with hx of ESRD on PD, HTN, anemia, kidney stones, BPH, gout, admitted with severe anemia and pleural effusion, seen in consultation today for LUE edema after undergoing HD 2 days ago. Pt has been doing home PD up to 4 times daily, but still has not been clearing well. Pt noted to be hyperkalemia on admission, and HD was recommended d/t poor clearances with PD. He has LUE AVF created in remote past. Pt speaks some ukrainian, but his primary language is [place]. He uses a phone plaque maker to assist with his hospital care/communication. Pt admits pain and edema of left arm, states it began after his HD 2 days ago. None prior to this. Admits fatigue and QUIÑONES. Denies other complaints presently. LUE dialysis access US demonstrates no sign of stenosis. Allergies Allergy/AdvReac Type Severity Reaction Status Date / Time No Known Allergies Allergy Verified 06/12/22 13:03 Home Medications Medication Instructions Recorded Confirmed Type amlodipine 10 mg tablet 10 mg PO DAILY 05/15/19 08/19/22 History ergocalciferol (vitamin D2) 1,250 1,250 mcg PO WK 10/28/20 08/19/22 History mcg (50,000 unit) capsule (Vitamin D2) losartan 50 mg tablet 50 mg PO BID 10/28/20 08/19/22 History allopurinol 100 mg tablet 100 mg PO DAILY 06/12/22 08/19/22 History carvedilol 6.25 mg tablet 6.25 mg PO BID 06/12/22 08/19/22 History clonidine 0.2 mg/24 hr weekly 0.2 mg transdermal WK 06/12/22 08/19/22 History transdermal patch metoprolol tartrate 25 mg tablet 25 mg PO BID 06/12/22 08/19/22 History calcitriol 0.5 mcg capsule 1.5 mcg PO DAILY 08/19/22 08/19/22 History cinacalcet 30 mg tablet 30 mg PO DAILY 08/19/22 08/19/22 History colchicine 0.6 mg tablet 1.2 mg PO Q6 PRN gout flare 08/19/22 08/19/22 History epoetin beta, methoxy peg 200 200 mcg subcut MONTHLY 08/19/22 08/19/22 History mcg/0.3 mL injection syringe (Mircera) hydralazine 100 mg tablet 100 mg PO QID 08/19/22 08/19/22 History vit B,C-folic ac 800 mcg-zinc 12.5 1 tab PO DAILY 08/19/22 08/19/22 History mg-selen-D3 2,000 unit-vit E tablet ([facility]Plex-D) Patient History Medical History AV fistula Benign prostatic hyperplasia with urinary obstruction ESRD (end stage renal disease) on dialysis PD patient; follows with Dr. 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 Hypertension Kidney transplant candidate reason for colonoscopy to get on list Nephrolithiasis Peritoneal dialysis catheter in place Restless leg syndrome Surgical History H/O inguinal hernia repair History of colonoscopy History of cystoscopy History of thoracentesis History of tooth extraction Status post creation of arteriovenous fistula left arm Family History Other No family history of adverse response to anesthesia No significant family history Social History Smoking Status: Never smoker Second Hand Exposure: No; Do You Dip or Chew Tobacco: No; Hx Alcohol Use: No Hx Substance Use: No Preferred Language: [place] Communication Ability: Effective Communication Tools: IPad Balance Wheel Arm Burnisher Required: Yes Beliefs That Will Affect Care: None marital status: Current Living Situation: Spouse current occupational status: employed Feels Safe at Home: Yes Safety Concerns: Feels Safe At This Time Assistive Devices: Glasses Review of Systems Review of Systems: All systems reviewed & are unremarkable except as noted in HPI & below Physical Exam Constitutional: WD/WN, vitals as above Neck: trachea midline Respiratory: normal respiratory effort, lungs clear to auscultation Auscultation: + diminished lung sounds Cardiovascular: Rate/Rhythm: regular rate and regular rhythm Vessels: femoral pulses present, posterior tibial pulses present, dorsalis pedis pulses present, brachial pulses present and radial pulses present; + abnormal peripheral pulses Extremities: normal capillary refill, + edema (+3 edema of L forearm and hand/fingers) and + AV fistula (+thrill/bruit throughout) Gastrointestinal (Abdomen): Inspection/Auscultation: abdomen normal to inspection (PD catheter noted) and normal bowel sounds Percussion/Palpation: abdomen soft; abdomen nontender Musculoskeletal: no cyanosis or clubbing, extremities motor strength 5/5 Skin: no rashes, warm and dry Neurologic: moves all extremities and awake; no focal motor deficits and not confused Psychiatric: Orientation: alert and oriented x 3 Affect: + flat affect and + irritable affect Results & Data ([facility]) Vital Signs (Past 12 Hours) Vital Signs Temp Pulse Pulse Resp BP Pulse Ox O2 Del Method 08/22/22 08:02 37.5 C 89 16 175/82 H 94 Room Air 08/22/22 07:00 89 08/22/22 03:48 36.9 C 79 18 179/80 H 93 Room Air 08/22/22 00:14 78
--- NOTE | 2022-08-22 11:54 | Gastroenterology Progress Note ---
Date of Service August 22, 2022 Assessment & Plan (1) Symptomatic anemia: Plan: Pt denies gross GI bleeding and Hb is stable post transfusion. Plan 1. Offered/encouraged EGD - pt declined. 2. GI will sign off. Please notify us if gross GI bleeding, if decreasing Hb or if pt would like to undergo EGD. Admission and Anticipated Discharge Date Admission Date: August 19, 2022 Supervising Physician Co-Signing Physician Notes I performed a history and physical examination of the patient today, including specifically on physical exam - soft abdomen. I have discussed the patient's management with the advanced practitioner. Please refer to the nurse practitioner's note for the documented findings and plan of care. Patient declined EGD. Currently his stool is brown with no melena. Prior dark stool attributed to Iron pills by patient. PO PPI. Recall GI if needed. Subjective Admitted for anemia Hb 7.0 +2 Units of RBCs. Translation lacie used by pt to interview the pt. He denies any hx of black BMs. No abd pain. Does not want to undergo EGD. No prior EGDs, most recent colonoscopy 2020 3 polyps, largest 6mm, diverticulosis, int hemorrhoids. Review of Systems Review of Systems: ROS: Gen: Denies weakness, fevers, weight loss Eyes: No eye redness, or pain, no recent vision changes Resp: No SOB, no cough Cardio: No palpitations/irregular beats, no chest pain GI: No abdominal pain, no nausea/vomiting : Denies pain on urination Skin: No jaundice, itching or new rashes Physical Exam Constitutional: WD/WN, vitals as above Eyes: PERRL, conjunctivae normal, anicteric sclerae ENMT: external ear and nose normal, oropharynx normal Neck: trachea midline, no thyromegaly Respiratory: normal respiratory effort, lungs clear to auscultation Cardiovascular: RRR, no murmur, no edema Gastrointestinal (Abdomen): normal bowel sounds, soft, nontender, no he patosplenomegaly Skin: no rashes, warm and dry Neurologic: PERRL, EOMI, accommodation nl, no face palsy, no dysarthria Psychiatric: A+Ox3, euthymic affect Lymphatic: no cervical or axillary lymphadenopathy Results & Data ([facility]) Vital Signs (Past 12 Hours) Vital Signs Temp Pulse Pulse Resp BP Pulse Ox O2 Del Method 08/22/22 11:00 Room Air 08/22/22 08:02 37.5 C 89 16 175/82 H 94 Room Air 08/22/22 07:00 89 08/22/22 03:48 36.9 C 79 18 179/80 H 93 Room Air 08/22/22 00:14 78 Laboratory Results WBC 15, Hb 8.3, Hct 25, Plts 386, Na 136, K 5.5, Cl 98, CO2 27, BUn 13, Cr 0.7, glucose 79.
--- NOTE | 2022-08-22 14:33 | Hospitalist Progress Note ---
Date of Service August 22, 2022 Assessment & Plan (1) Symptomatic anemia: Plan: Has been complaining of weakness and shortness of breath on exertion for the last 3 days 3 days ago hemoglobin noted to be around 6 as per the patient and was advised to come to the hospital for blood transfusion Hgb on admission 7, received 2 unit PRBC so far during hospital course Now Hgb 8.3 today iron level 30, TIBC 142 are low received IV iron on 08/20/22 Gastro on board Pt declined EGD during hospital course Continue monitor H/H and transfuse if hgb drops below 8 (2) ESRD (end stage renal disease) on dialysis: (3) Peritoneal dialysis status: Plan: He is on the transplant team at [place] Currently peritoneal dialysis 4 times a day at home Nephrology on board Plan to HD today Continue monitor electrolytes Left arm swelling/tenderness L forearm/hand edema after single HD session. Doppler LUE showed no venous thrombus within the left upper extremity. Patent left upper extremity AV fistula. Vascular consulted plan for LUE fistulagram/venogram in OR tomorrow Will make NPO after midnight Electrolytes abnormality Potassium was 6.2 on admission Received insulin dextrose and calcium gluconate on admission Potassium 5.5 today Plan to get dialysis today Continue monitor electrolytes Elevated troponin Due to ESRD Denies any chest pain Continue monitor (4) Hypertension: Plan: Elevated BP continue current medications Plan DVT prophylaxis On SCDs CODE STATUS Full Admission and Anticipated Discharge Date Admission Date: August 19, 2022 Subjective Pt was seen and examined for follow up of anemia and ESRD Sitting in bed with no acute distress Orchid Superintendent was used to communicate with the patient. his left arm continue swelling and tender He saw GI early and declined EGD He agreed to get dialysis today and to stay for the night for the LUE fistulogram/venogram in OR tomorrow denies any chest pain, palpitation, dizziness and SOB Review of Systems Review of Systems: All systems reviewed & are unremarkable except as noted in Subjective Physical Exam Physical Exam: General- No acute distress Head- atraumatic Eyes- PERRL, EOMI, ENT- oropharynx clear Neck- supple, no JVD Lungs- clear to auscultation Heart- regular rhythm; + murmur Abdomen- normal bowel sounds, soft, nontender Extremities- no calf tenderness, +edema LUE and b/LE, +AV fistula in LUE Neuro- alert, oriented x 3; PERRL, EOMI; no facial palsy; no dysarthria Skin- warm & dry Results & Data Results & Data ([facility]) Vital Signs (Past 12 Hours) Vital Signs Temp Pulse Pulse Resp BP Pulse Ox O2 Del Method 08/22/22 11:54 37.3 C 83 18 161/92 H 94 Room Air 08/22/22 11:00 Room Air 08/22/22 08:02 37.5 C 89 16 175/82 H 94 Room Air 08/22/22 07:00 89 08/22/22 03:48 36.9 C 79 18 179/80 H 93 Room Air
--- NOTE | 2022-08-22 14:55 | Nephrology Progress Note ---
Date of Service August 22, 2022 Assessment & Plan (1) ESRD (end stage renal disease) on dialysis: Plan: PD rx as OP is maximal for this pt (he literally dialyzes > 15 hrs daily) and still his labs show inadequate dialysis given K, phos, creatinine, volume overload; +/- anemia. nonadherence also a possibility here. -trial of hemodialysis while here using AVF stopped after one tx d/t avf malfunction -AVF runs ok/ no issues reported during tx however see below re vascular concerns -I see no phos binders on his med list; reviewed OP dialysis meds and no binders there; started medium dose phosLo -daily bm needed as PD patient > will start stool softeners w/ hold parameters; pt aware -colchicine dose is inappropriate for PD and stopped it -continue dialysis diet; added 1.2 L FR -he states he has heparin in the bags > will do this for cycler this PM I spent over 50 minutes coordinating care mar hospitalist, vascular; pt and his daughter and dialysis nurses. (2) Dialysis AV fistula infection: Plan: reviewed weekend events > coordinated vascular surgery evaluation; pt for fistulagram in AM; concern for more central/intrathoracic venous stenosis (3) Symptomatic anemia: Plan: po iron is inappropriate for dialysis pts > not adequately absorbed; he will get IV iron if indicated at HD -20K units of epo w/ HD today >> t sat won't be accurate and on 07/28 was 10% on outside labs; will give 200 mg venofer q tx x 5 -for another unit pRBC > recommend leukopoor given txplt hopes adn d/w primary service -f/u GI recs; pt refusing egd -will give more venofer today (4) Hyperkalemia: Plan: present for > week based on OP labs; recurs fast; shows need for dialysis >managed medically and w/ dialysis -he had dose of lokelma; he had IV insulin 6 and then 10 units on admission -cont renal diet -start patiromer tomorrow midday -dialysis today (5) Pleural effusion: Plan: new L pleural effusion >> suspect this is cause of post L thoracic pain; per primary service; not likely to be removed w/ HD Admission and Anticipated Discharge Date Admission Date: August 19, 2022 Subjective after monday tx pt developed access arm pain and worsened edema. hospitalist evaluated yesterday. doppler unremarkable > pt refusing HD today d/t access arm pain/edema. asked vascular to get involved and put him on PD for daylight; pt saw GI and refused EGD Review of Systems Review of Systems: All systems reviewed & are unremarkable except as noted in Subjective Physical Exam Constitutional: well developed, average body habitus, + language barrier, + frail appearing (appears older than stated age) and cooperative; no acute distress Eyes: eomi Neck: supple Respiratory: normal respiratory effort; no respiratory distress, no labored breathing, no cough, not tachypneic and no paradoxical thoraco-abdominal movemnt Auscultation: + diminished lung sounds (L base) and + crackles Cardiovascular: Rate/Rhythm: regular rate and regular rhythm Extremities: + edema (3+ pedal, 1+ ankle; no dependent; 4+ distal LLE) and + AV fistula (+ t/b) Gastrointestinal (Abdomen): Inspection/Auscultation: abdomen normal to inspection (PD cath present) and normal bowel sounds Percussion/Palpation: abdomen soft; abdomen nontender and no guarding Psychiatric: Orientation: alert and oriented x 3 Speech: normal rate/rhythm/volume of speech Results & Data ([facility]) Vital Signs (Past 12 Hours) Vital Signs Temp Pulse Pulse Resp BP Pulse Ox O2 Del Method 08/22/22 11:54 37.3 C 83 18 161/92 H 94 Room Air 08/22/22 11:00 Room Air 08/22/22 08:02 37.5 C 89 16 175/82 H 94 Room Air 08/22/22 07:00 89 08/22/22 03:48 36.9 C 79 18 179/80 H 93 Room Air Laboratory Results 08/22/22 07:34 08/22/22 07:34
[2022-08-22] MEDS: HEPARIN SOD (PORCINE) 1000 UNIT/ML IV SCH ×2 (15:27→15:28)
[2022-08-22] MEDS ORDERED: IRON SUCROSE 200 MG in 0.9 % SODIUM CHLORIDE 100 ML IV ONE (15:30)
[2022-08-23] MEDS ORDERED: traMADol HCL 50 MG TABLET PO PRN (00:46)
[2022-08-23] MEDS ORDERED: ACETAMINOPHEN 325 MG TAB PO PRN (00:46)
[2022-08-23] MEDS: CHECK CLONIDINE PATCH PLACEMENT SCH ×3 (01:23→15:22)
--- NOTE | 2022-08-23 07:24 | History & Physical Bridge Note ---
Date of Service August 23, 2022 History & Physical Bridge Note Patient for fistulogram with possible intervention. I have discussed the risks options and benefits of the procedure with the patient. The patient understands the risks options and benefits and agrees to the procedure. I have examined the patient, reviewed the History & Physical and in the interval since the performance of the History & Physical I have noted the following changes of clinical significance: no changes noted
--- NOTE | 2022-08-23 08:04 | Nephrology Progress Note ---
Date of Service August 23, 2022 Assessment & Plan (1) ESRD (end stage renal disease) on dialysis: Plan: PD rx as OP is maximal for this pt (he literally dialyzes > 15 hrs daily) and still his labs show inadequate dialysis given K, phos, creatinine, volume overload; +/- anemia. nonadherence clearly happening here; we did aggressive PD past 24 hrs and his labs are improved. -trial of hemodialysis while here using AVF stopped after one tx d/t avf malfunction -AVF runs ok/ no issues reported during tx however see below re vascular concerns -colchicine dose is inappropriate for PD and stopped it -continue dialysis diet and 1.2 L FR NEPHRO D/C RECOMMENDATIONS -do NOT resume colchicine on d/c (not appropriate for PD) -do not continue phoslo or patiromer at d/c > these should be managed if needed by OP dialysis unit -advised him to continue 1.2L daily fluid limit at d/c >>pls fax copies of this note and of d/c summary to [facility], Dr Florence, for continuity of care >strongly recommend he keep vascular OP appt to fistulagram/evaluation for central stenosis or other cause of distal access arm edema (2) Dialysis AV fistula malfunction: Plan: seen by vascular pt needs nonemergent fistulagram w/in 7-10 days -concern for more central/intrathoracic venous stenosis > important that he maintain HD access (3) Hyperkalemia: Plan: present for > week based on OP labs; recurs fast; shows need for dialysis >managed medically and w/ dialysis >would not d/c on patiromer as it is costly and may lead pt erroneously to think he can do less dialysis (4) Symptomatic anemia: Plan: po iron is inappropriate for dialysis pts > not adequately absorbed -20K units of epo w/ HD x 1 - t sat on 07/28 was 10% on outside labs; had 200 mg venofer q tx x 3 doses > had it 08/20, 08/22, 08/23 -pRBC prn > had at least 2 units this visit -pt refusing egd which is GI rec (5) Goals of care, counseling/discussion: Plan: we talked about how ESRD impacts his life, how he sometimes gets tired of doing PD daily which he admits. pretty clear from working w/ him for a few days that he's not failing PD d/t physiologic/membrane changes but d/t adherence. I had been considering palliative consult to discuss goals of care and/or psych consult to address depression. He denies depression though and tells me he k nows he needs dialysis to live. Believe he would refuse further goals of care discussion or mental health eval. -advised him to consider asking for respite care/brief stint of in center HD as a break if needed -continue to work on getting a txplt -consider HHD I spent > 30 minutes discussing w/ pt and at his request w/ his daughter on above. he refused alliance manager services. Admission and Anticipated Discharge Date Admission Date: August 19, 2022 Subjective fistulagram for today cx'd ; tolerated PD well and 2.9L UF overnight; he notes L hand (though still puffy) and R leg are better Review of Systems Review of Systems: All systems reviewed & are unremarkable except as noted in Subjective Physical Exam Constitutional: well developed, average body habitus, + language barrier, + frail appearing (appears older than stated age) and cooperative; no acute distress Respiratory: normal respiratory effort; no respiratory distress, no labored breathing, no cough, not tachypneic and no paradoxical thoraco-abdominal movemnt Auscultation: lungs clear to auscultation bilaterally and + diminished lung sounds (L base); no crackles Cardiovascular: Rate/Rhythm: regular rate and regular rhythm Extremities: + edema (3+ pedal, 2+ ankle; no dependent; fluctuant fluid collection L hand) and + AV fistula (+ t/b; no involvement with UE edema) Gastrointestinal (Abdomen): Inspection/Auscultation: abdomen normal to inspection (PD cath present) and normal bowel sounds Percussion/Palpation: abdomen soft; abdomen nontender and no guarding Musculoskeletal: Extremities: strength 5/5 throughout Psychiatric: Orientation: alert and oriented x 3 Speech: normal rate/rhythm/volume of speech Results & Data ([facility]) Vital Signs (Past 12 Hours) Vital Signs Temp Pulse Pulse Resp BP Pulse Ox O2 Del Method 08/23/22 07:35 36.5 C 78 18 162/75 H 94 Room Air 08/23/22 07:10 71 08/23/22 03:12 36.7 C 72 18 122/73 90 Room Air 08/22/22:14 80 08/22/22 19:58 36.9 C 80 20 145/82 H 95 Room Air Laboratory Results 08/23/22 08:03 08/23/22 08:03
[2022-08-23 08:27] LABS: Hematocrit (blood only) 24.6 % (42.0-52.0); Mean Corpuscular Hemoglobin 27.8 pg (25.0-34.0); Mean Corpuscular Hgb Conc 32.5 g/dL (32.0-36.0); Mean Corpuscular Volume 85.4 fL (80.0-100.0); Mean Platelet Volume 11.1 fL (9.4-12.4); Platelet Count 338 K/uL (130-400); RDW Coefficient of Variation 18.4 % (11.5-14.5); RDW Standard Deviation 57.1 fL (36.4-46.3); Red Blood Count 2.88 M/uL (4.70-6.10); White Blood Count 13.68 K/ul (4.8-10.8)
[2022-08-23] MEDS ORDERED: IRON SUCROSE 200 MG in 0.9 % SODIUM CHLORIDE 100 ML IV ONE (08:30)
[2022-08-23 08:38] LABS: BUN Creatinine Ratio 5.3 (10-20); Creatinine Clr Calc Pharmacy 7.1 ml/min; Est GFR (African American) 5.7 ml/min; Potassium 4.3 mmol/L (3.5-5.1)
[2022-08-23] MEDS ORDERED: PANTOprazole 40 MG TAB PO SCH (09:00)
[2022-08-23] MEDS: CALCIUM ACETATE 667 MG CAP/TAB PO SCH ×2 (09:21→12:07)
[2022-08-23] MEDS: CALCITRIOL 0.25 MCG CAPSULE PO SCH (09:29)
[2022-08-23] MEDS: METOPROLOL TARTRATE 25 MG TAB PO SCH (09:29)
[2022-08-23] MEDS: amLODIPine BESYLATE 5 MG TAB PO SCH (09:30)
[2022-08-23] MEDS: allopurinoL 100 MG TAB PO SCH (09:30)
[2022-08-23] MEDS: hydrALAZINE TAB 50 MG TAB PO SCH ×2 (09:30→12:07)
[2022-08-23] MEDS: NEPHROCAPS PO SCH (09:30)
[2022-08-23] MEDS: DOCUSATE SODIUM 100 MG CAP PO SCH (09:30)
[2022-08-23] MEDS: CINACALCET HCL 30 MG TAB PO SCH (09:30)
[2022-08-23] MEDS: carvediloL 3.125 MG TAB PO SCH (09:31)
[2022-08-23] MEDS ORDERED: PATIROMER CALCIUM SORBITEX 8.4 GM PACK PO SCH (11:00)
--- NOTE | 2022-08-23 14:14 | Discharge Summary ---
Date of Service August 23, 2022 Admission HPI Per Admitting Provider The history was taken through [employer] translater: He is a 66-year-old [place] African-speaking male with history of end-stage renal disease on peritoneal dialysis, hypertension, hyperlipidemia, secondary hyperparathyroidism and prediabetes apparently has been complaining of shortness of breath with minimal exertion for some time. He had a blood test done in his doctor's office and hemoglobin was low at around 6 and he was advised to come to the hospital for blood transfusion. He is coming today with more shortness of breath on exertion. Complains to have black stool without any abdominal pain and at the same time he has been taking oral iron. He has some back pain but no chest pain and/or palpitation. No fever and or chills. No problem with his urine and or bowel habit.. He was noted to have a hemoglobin of 7.0 and he was noted to have BUN of 97 and creatinine 13.57 with a potassium of 6.2. He has end-stage renal disease and on peritoneal dialysis 4 times a day and he does it regularly at home. He has a fistula on the left antecubital fossa but has not been using it for hemodialysis. He is under transplant team for a possible kidney transplant down the line. Admission Exam Per Admitting Provider Constitutional: WD/WN, vitals as above Neck: trachea midline Respiratory: normal respiratory effort, lungs clear to auscultation Auscultation: + diminished lung sounds Cardiovascular: Rate/Rhythm: regular rate and regular rhythm Vessels: femoral pulses present, posterior tibial pulses present, dorsalis pedis pulses present, brachial pulses present and radial pulses present; + abnormal peripheral pulses Extremities: normal capillary refill, + edema (+3 edema of L forearm and hand/fingers) and + AV fistula (+thrill/bruit throughout) Gastrointestinal (Abdomen): Inspection/Auscultation: abdomen normal to inspection (PD catheter noted) and normal bowel sounds Percussion/Palpation: abdomen soft; abdomen nontender Musculoskeletal: no cyanosis or clubbing, extremities motor strength 5/5 Skin: no rashes, warm and dry Neurologic: moves all extremities and awake; no focal motor deficits and not confused Psychiatric: Orientation: alert and oriented x 3 Affect: + flat affect and + irritable affect Principal Diagnosis Symptomatic anemia: ESRD (end stage renal disease) on dialysis: Peritoneal dialysis status: Left arm swelling/tenderness Electrolytes abnormality Elevated troponin Discharge Exam General- No acute distress Head- atraumatic Eyes- PERRL, EOMI, ENT- oropharynx clear Neck- supple, no JVD Lungs- clear to auscultation Heart- regular rhythm; + murmur Abdomen- normal bowel sounds, soft, nontender Extremities- no calf tenderness, +edema LUE and b/LE, +AV fistula in LUE Neuro- alert, oriented x 3; PERRL, EOMI; no facial palsy; no dysarthria Skin- warm & dry Discharge Data Allergies Allergy/AdvReac Type Severity Reaction Status Date / Time No Known Allergies Allergy Verified 08/26/22 07:24 Consultations 08/19/22 16:28 ED Decision to Admit Stat 08/19/22 17:38 Consult Gastroenterology Routine Consult Nephrology Routine 08/22/22 10:23 Consult Vascular Surgery Routine Procedures Performed Operation Date: 08/25/22 13:00 <No data on this case meets the specified criteria> Ordered Studies 08/21/22 16:45 US venous doppler UE LT Routine Laboratory Results WBC 13.68 K/ul (4.8-10.8) H 08/23/22 08:03 RBC 2.88 M/uL (4.70-6.10) L 08/23/22 08:03 Hgb 8.0 g/dl (14.0-18.0) L 08/23/22 08:03 Hct 24.6 % (42.0-52.0) L 08/23/22 08:03 MCV 85.4 fL (80.0-100.0) 08/23/22 08:03 MCH 27.8 pg (25.0-34.0) 08/23/22 08:03 MCHC 32.5 g/dL (32.0-36.0) 08/23/22 08:03 RDW Std Deviation 57.1 fL (36.4-46.3) H 08/23/22 08:03 RDW Coeff of Diamond 18.4 % (11.5-14.5) H 08/23/22 08:03 Plt Count 338 K/uL (130-400) 08/23/22 08:03 MPV 11.1 fL (9.4-12.4) 08/23/22 08:03 Immature Gran % (Auto) 0.7 % 08/20/22 03:00 Neut % (Auto) 80.5 % 08/20/22 03:00 Lymph % (Auto) 6.1 % 08/20/22 03:00 [place] % (Auto) 8.4 % 08/20/22 03:00 Eos % (Auto) 3.7 % 08/20/22 03:00 Baso % (Auto) 0.6 % 08/20/22 03:00 Neut # (Auto) 9.73 K/uL (1.40-6.50) H 08/20/22 03:00 Lymph # (Auto) 0.74 K/uL (1.2-3.4) L 08/20/22 03:00 [place] # (Auto) 1.02 K/uL (0.11-0.59) H 08/20/22 03:00 Eos # (Auto) 0.45 K/uL (0-0.50) 08/20/22 03:00 Baso # (Auto) 0.07 K/uL (0-0.2) 08/20/22 03:00 Immature Gran # (Auto) 0.08 K/uL (0.01-0.20) 08/20/22 03:00 Polychromasia 1+ 08/19/22 14:52 Hypochromasia Present 08/20/22 03:00 Anisocytosis Present 08/19/22 14:52 Target Cells 1+ 08/19/22 14:52 Schistocytes 1+ 08/19/22 14:52 PT 11.1 Seconds (9.0-12.0) 08/19/22 14:52 INR 1.0 (0.9-1.1) 08/19/22 14:52 APTT 32.8 Seconds (21.0-31.0) H 08/19/22 14:52 PTT Ratio 1.2 08/19/22 14:52 Sodium 136 mmol/L (136-145) 08/23/22 08:03 Potassium 4.3 mmol/L (3.5-5.1) D 08/23/22 08:03 Chloride 98 mmol/L (98-107) 08/23/22 08:03 Carbon Dioxide 28 mmol/L (21-32) 08/23/22 08:03 Anion Gap 10 (3-11) 08/23/22 08:03 BUN 52 mg/dl (6-23) H 08/23/22 08:03 Creatinine 9.72 mg/dl (0.6-1.4) H* D 08/23/22 08:03 Est Cr Clr Drug Dosing 7.1 ml/min 08/23/22 08:03 Est GFR ( Amer) 5.7 ml/min 08/23/22 08:03 Est GFR (Non-Af Amer) 5.0 ml/min 08/23/22 08:03 BUN/Creatinine Ratio 5.3 (10-20) L 08/23/22 08:03 Glucose 108 mg/dl (70-99(Fasting)) H 08/23/22 08:03 Calcium 8.0 mg/dl (8.5-10.1) L 08/23/22 08:03 Phosphorus 5.6 mg/dl (2.5-4.9) H 08/22/22 07:34 Magnesium 1.7 mg/dl (1.7-2.4) 08/21/22 06:24 Iron 30 mcg/dl (35-175) L 08/20/22 06:21 TIBC 142 mcg/dl (250-450) L 08/20/22 06:21 Unsaturated IBC 112 mcg/dl (155-355) L 08/20/22 06:21 Transferrin % Sat 21 % (20-50) 08/20/22 06:21 Total Bilirubin 0.5 mg/dl (0.2-1.0) 08/19/22 14:52 AST 17 U/L (13-39) 08/19/22 14:53 ALT 14 U/L (7-52) 08/19/22 14:52 Alkaline Phosphatase 56 U/L (34-104) 08/19/22 14:52 Troponin I High Sens 210.7 pg/ml (0-20) H* 08/19/22 14:52 Total Protein 5.6 gm/dl (6.0-8.3) L 08/19/22 14:52 Albumin 2.9 gm/dl (3.4-5.0) L 08/19/22 14:52 Globulin 2.7 gm/dl (2.5-4.0) 08/19/22 14:52 Albumin/Globulin Ratio 1.1 (0.9-2) 08/19/22 14:52 Lipase 18 U/L (11-82) 08/19/22 14:52 SARS-CoV-2, RNA, NAAT NEGATIVE (NEGATIVE) 08/19/22 14:45 Blood Type O Positive 08/19/22 14:52 Antibody Screen NEGATIVE 08/19/22 14:52 Crossmatch See Detail 08/19/22 14:52 Impressions KUB X-Ray 08/19/22 14:12 KUB CLINICAL HISTORY: Abdominal pain. COMPARISON STUDY: CT of the abdomen and pelvis July 22, [address] June 12, 2022. FINDINGS: Left pleural effusion with left basilar opacity is noted. There is pulmonary vascular congestion with suspected mild pulmonary edema. The bowel gas pattern is normal. Extensive vascular calcification and a peritoneal dialysis catheter incidentally noted. IMPRESSION: 1. No evidence for a bowel obstruction. 2. Left pleural effusion with associated left basilar opacity. Suspected mild interstitial pulmonary edema. ACT 112: Negative or not required by law. Electronically signed by: Sivakumar Renee M.D. 08/19/2022 2:52 PM Chest X-Ray 08/19/22 14:13 XR chest 1V portable CLINICAL HISTORY: abd pain TECHNIQUE: Single frontal radiograph of the chest was obtained. Comparison: Comparison is made to chest radiograph 06/12/2022 FINDINGS: No lines and tubes are seen. Cardiomegaly is noted. Prominence and cephalization of the vasculature is seen. Left retrocardiac opacity is seen. There is a moderate left pleural effusion, new from prior exam. IMPRESSION: 1. Moderate left pleural effusion, new from prior exam. Retrocardiac opacity likely represents atelectasis with or without superimposed pneumonia and/or aspiration 2. Cardiomegaly and mild pulmonary edema. ACT 112: Negative or not required by law. Electronically signed by: Jose Nicholson M.D. 08/19/2022 2:47 PM Extremity Venous Study 08/21/22 16:45 LEFT UPPER EXTREMITY VENOUS DOPPLER ULTRASOUND CLINICAL HISTORY: left arm swelling and tenderness COMPARISON STUDY: No previous studies for comparison. TECHNIQUE: Sonography of the venous system of the left upper extremity was performed. FINDINGS: No venous thrombus was identified within the left upper extremity. Left upper extremity AV fistula is patent. Mildly elevated velocities within the fistula are likely within normal limits. No hematoma is noted within the left upper extremity. IMPRESSION: 1. No venous thrombus within the left upper extremity. 2. Patent left upper extremity AV fistula. ACT 112: Negative or not required by law. Electronically signed by: Sivakumar Renee M.D. 08/21/2022 6:20 PM Hospital Course (1) Symptomatic anemia: Has been complaining of weakness and shortness of breath on exertion for the last 3 days 3 days ago hemoglobin noted to be around 6 as per the patient and was advised to come to the hospital for blood transfusion Hgb on admission 7, received 2 unit PRBC so far during hospital course Now Hgb 8.3 today iron level 30, TIBC 142 are low received IV iron on 08/20/22 Gastro on board Pt declined EGD during hospital course Continue monitor H/H and transfuse if hgb drops below 8 (2) ESRD (end stage renal disease) on dialysis: (3) Peritoneal dialysis status: He is on the transplant team at [place] Currently peritoneal dialysis 4 times a day at home Nephrology on board Plan to HD today Continue monitor electrolytes Left arm swelling/tenderness L forearm/hand edema after single HD session. Doppler LUE showed no venous thrombus within the left upper extremity. Patent left upper extremity AV fistula. Vascular consulted plan for LUE fistulagram/venogram to be done outpatient on Monday Electrolytes abnormality Potassium was 6.2 on admission Received insulin dextrose and calcium gluconate on admission Potassium 4.3 today Will resume PD on discharge Continue monitor electrolytes Elevated troponin Due to ESRD Denies any chest pain Continue monitor (4) Hypertension: Elevated BP continue current medications Plan DVT prophylaxis On SCDs CODE STATUS Full Total Time Total Time Spent Total Time Spent (In Minutes): 35 minutes Discharge Plan Discharge Items Patient Disposition: Home - Self-Care Reason For Visit: SYMPTOMATIC ANEMIA Discharge Diagnosis: Symptomatic anemia: ESRD (end stage renal disease) on dialysis: Peritoneal dialysis status: Left arm swelling/tenderness Electrolytes abnormality Elevated troponin Activity: Resume your previous activity Non-emergency contact: Primary Care Provider and End Lathe Operator Call non-emergency contact if: you have any medication questions and your symptoms worsen Follow-up/Referrals: Mariel Walter DO [Primary Care Provider] - (Date & Time 08/26/2022 9:00 AM Provider Cisco Starkey MD [facility] ) Diet: Dialysis Renal Addtl Attending Provider Instructions: Follow up with your primary care provider 08/26/2022 @9:00 AM Cisco Starkey MD [facility] Please resume your peritoneal dialysis Follow up with your nephrology Follow up with Vascular surgery Dr. Viera on Monday for the Left Upper Extremity fistulogram/venogram outpatient Check CBC in within 1 week to monitor hemoglobin Continue fluid restriction with 1.2 Liter fluid daily Seek medical attention if your symptoms worsening Pending Studies at Discharge: No Stand-Alone Forms: [facility] Sm[facility] Cess[facility] Medications and DC Order Prescriptions: New pantoprazole 40 mg Tablet,Delayed Release (Dr/Ec) 40 mg PO QAM 30 Days Qty: 30 0RF Continued amlodipine 10 mg tablet 10 mg PO DAILY calcitriol 0.5 mcg capsule 1.5 mcg PO DAILY Rx Instructions: 3 capsule dose cinacalcet [Sensipar] 30 mg tablet 30 mg PO DAILY hydralazine 100 mg tablet 100 mg PO QID RenaPlex-D 800 mcg-12.5 mg -2,000 unit Tablet 1 tab PO DAILY Mircera 200 mcg/0.3 mL syringe 200 mcg subcut MONTHLY Rx Instructions: had last month -unsure of time- Beginning of July losartan [Cozaar] 50 mg Tablet 50 mg PO BID ergocalciferol (vitamin D2) [Vitamin D2] 1,250 mcg (50,000 unit) Capsule 1,250 mcg PO WK metoprolol tartrate 25 mg tablet 25 mg PO BID allopurinol 100 mg tablet 100 mg PO DAILY carvedilol 6.25 mg tablet 6.25 mg PO BID clonidine 0.2 mg/24 hr patch weekly 0.2 mg transdermal WK Discontinued colchicine 0.6 mg Tablet 1.2 mg PO Q6 PRN (Reason: gout flare) Discharge Orders: Discharge Order (Routine); Ordered 08/23/22 Ordered By: Anne Marie Garcia Admission Data Admit Date/Time: 08/19/22 16:52 Attending Provider: Anne Marie Garcia Admit Provider: Taj Ramos Primary Care Provider: Mariel Walter Other Providers: Enrique Viera ; Jean Alas ; Rita Munson ; Peter Warren Other Interventions: Discharge Summary Assessment (RN) Last Done: 08/23/22 14:50
[2022-08-25] MEDS ORDERED: ERGOCALCIFEROL 50,000 UNITS 1250 MCG CAP PO SCH (09:00)
[2022-08-25] MEDS ORDERED: ceFAZolin 2000MG 2,000 MG/15 ML SYR IV ONE (11:00)
== END 2022-08-23 15:54 | disposition home or self-care (01) | DRG 682 ==
LOC: ED 14:06 → SUATTDRO 16:52 → 2W 16:52

== ENCOUNTER 2022-09-11 07:49 | Inpatient (IN) ==
[2022-09-11] MEDS ORDERED: methylPREDNISolone 125 MG/2 ML VIAL IV STA (08:14)
[2022-09-11] MEDS ORDERED: ALBUT/IPRATROP 3MG/0.5MG NEB 3 ML VIAL NEB STA ×2 (08:14)
[2022-09-11] MEDS ORDERED: CALCIUM GLUCONATE 10% 1,000 MG in DEXTROSE 5% 50 ML IV STA (08:47)
[2022-09-11] MEDS ORDERED: STAT IV STA (08:47)
[2022-09-11 08:58] LABS: iSTAT Blood Urea Nitrogen 117 mg/dl (7-18); iSTAT Carbon Dioxide 22 mmol/L (24-31); iSTAT Chloride 102 mmol/L (101-112); iSTAT Creatinine > 20.0 mg/dl (0.6-1.3); iSTAT Glucose 68 mg/dl (70-99); iSTAT Hematocrit 33 % (42-52); iSTAT Hemoglobin 11.2 g/dl (14.0-18.0); iSTAT Ionized Calcium 0.94 mmol/l (1.12-1.32); iSTAT Potassium 6.6 mmol/L (3.3-5.0); iSTAT Sodium 133 mmol/L (135-144)
[2022-09-11 09:02] LABS: Base Excess VBG -3.7 mEq/L; HCO3 VBG 23 mmol/L; Oxygen Saturation VBG < 60.0 %; PCO2 VBG 45 mmHg (38-50); PO2 VBG 31 mmHg; pH VBG 7.31 (7.36-7.41)
[2022-09-11 09:07] LABS: Basophils # (auto) 0.08 K/uL (0-0.2); Basophils % (auto) 0.8 %; Eosinophils # (auto) 0.18 K/uL (0-0.50); Eosinophils % (auto) 1.7 %; Hematocrit (blood only) 33.4 % (42.0-52.0); Hemoglobin 10.4 g/dl (14.0-18.0); Immature Granulocytes # (auto) 0.03 K/uL (0.01-0.20); Immature Granulocytes % (auto) 0.3 %; Lymphocytes # (auto) 2.35 K/uL (1.2-3.4); Lymphocytes % (auto) 22.7 %; Mean Corpuscular Hemoglobin 26.8 pg (25.0-34.0); Mean Corpuscular Hgb Conc 31.1 g/dL (32.0-36.0); Mean Corpuscular Volume 86.1 fL (80.0-100.0); Mean Platelet Volume 10.6 fL (9.4-12.4); Monocytes # (auto) 0.88 K/uL (0.11-0.59); Monocytes % (auto) 8.5 %; Neutrophils # (auto) 6.83 K/uL (1.40-6.50); Platelet Count 373 K/uL (130-400); RDW Coefficient of Variation 18.3 % (11.5-14.5); RDW Standard Deviation 57.4 fL (36.4-46.3); Red Blood Count 3.88 M/uL (4.70-6.10); White Blood Count 10.35 K/ul (4.8-10.8)
[2022-09-11] MEDS ORDERED: INSULIN HUMAN REGULAR PER UNIT 5 UNITS in SYRINGE 9.9 ML IV STA (09:27)
[2022-09-11] MEDS ORDERED: DEXTROSE 50% 50 ML SYRINGE IV STA (09:27)
--- NOTE | 2022-09-11 09:27 | Emergency Department Note ---
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 compliant with PD) Associated symptoms: + cough, + wheezing, + sputum production, + orthopnea, + hemoptysis and + chest congestion; no chest pain or no nausea/vomiting Related Data Home oxygen amount: none Home Medications Medication Instructions Recorded Confirmed Type amlodipine 10 mg tablet 10 mg PO DAILY 05/15/19 09/11/22 History ergocalciferol (vitamin D2) 1,250 1,250 mcg PO WK 10/28/20 09/11/22 History mcg (50,000 unit) capsule (Vitamin D2) losartan 50 mg tablet (Cozaar) 50 mg PO BID 10/28/20 09/11/22 History allopurinol 100 mg tablet 100 mg PO DAILY 06/12/22 09/11/22 History carvedilol 6.25 mg tablet 6.25 mg PO BID 06/12/22 09/11/22 History clonidine 0.2 mg/24 hr weekly 0.2 mg transdermal WK 06/12/22 09/11/22 History transdermal patch metoprolol tartrate 25 mg tablet 25 mg PO BID 06/12/22 09/11/22 History calcitriol 0.5 mcg capsule 1.5 mcg PO DAILY 08/19/22 09/11/22 History cinacalcet 30 mg tablet (Sensipar) 30 mg PO DAILY 08/19/22 09/11/22 History epoetin beta, methoxy peg 200 200 mcg subcut MONTHLY 08/19/22 09/11/22 History mcg/0.3 mL injection syringe (Mircera) hydralazine 100 mg tablet 100 mg PO QID 08/19/22 09/11/22 History vit B,C-folic ac 800 mcg-zinc 12.5 1 tab PO DAILY 08/19/22 09/11/22 History mg-selen-D3 2,000 unit-vit E tablet (RenaPlex-D) pantoprazole 40 mg tablet,delayed 40 mg PO QAM 30 days #30 tabs 08/23/22 09/11/22 Rx release Allergies Allergy/AdvReac Type Severity Reaction Status Date / Time No Known Allergies Allergy Verified 09/11/22 09:01 Past Med/Surg History Medical History AV fistula Benign prostatic hyperplasia with urinary obstruction ESRD (end stage renal disease) on dialysis PD patient; follows with Dr. 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 Hypertension Kidney transplant candidate reason for colonoscopy to get on list Nephrolithiasis Peritoneal dialysis catheter in place Restless leg syndrome Surgical History H/O inguinal hernia repair History of colonoscopy History of cystoscopy History of thoracentesis History of tooth extraction Status post creation of arteriovenous fistula left arm Family History Other No family history of adverse response to anesthesia No significant family history Social History Smoking Status: Never smoker Second Hand Exposure: No; Do You Dip or Chew Tobacco: No; Tobacco Cessation Education Requested by Patient: No Hx Alcohol Use: No Hx Substance Use: No Preferred Language: Dutch Communication Ability: Effective Communication Tools: IPad Chronograph Operator Required: Yes, Video and Voice Beliefs That Will Affect Care: None marital status: Current Living Situation: Spouse current occupational status: employed Other Information That Helps Us Care for You: No Feels Safe at Home: Yes Safety Concerns: Feels Safe At This Time Assistive Devices: None Physical Exam Vital Signs: Vital Signs - 24 hr 09/11/22 07:59 09/11/22 08:05 09/11/22 08:05 Temperature 37.6 C H Temperature Source Axillary Pulse Rate 102 H 103 H Pulse Rate [Apical ] Pulse Rate from Sp O2 Sensor Pulse Rhythm Regular Respiratory Rate 19 Respiratory Effort / Characteristics Non-Labored Respiratory Depth Normal Blood Pressure 186/103 H Blood Pressure [Ri ght Arm] Blood Pressure Angelita n 130 Blood Pressure Angelita n [Right Arm] Blood Pressure Pos ition Sitting Pulse Oximetry 97 97 Oxygen Delivery Me thod Nebulizer Nebulizer Oxygen Flow Rate 8 8 Sepsis Recent Feve r Within 48 Hours No Sepsis New/Unexpla ined Change in Men brad Status N/A Sepsis Action Take n by Nursing No Action Required 09/11/22 09:08 09/11/22 09:08 09/11/22 07:58 Temperature Temperature Source Pulse Rate 99 H 102 H Pulse Rate [Apical ] 99 H Pulse Rate from Sp O2 Sensor 105 H Pulse Rhythm Respiratory Rate 18 17 34 H Respiratory Effort / Characteristics Respiratory Depth Blood Pressure Blood Pressure [Ri ght Arm] 160/105 H Blood Pressure Angelita n Blood Pressure Angelita n [Right Arm] 123 Blood Pressure Pos ition Pulse Oximetry 94 85 L Oxygen Delivery Me thod Nasal Cannula Nasal Cannula Oxygen Flow Rate 3 Sepsis Recent Feve r Within 48 Hours Sepsis New/Unexpla ined Change in Men brad Status Sepsis Action Take n by Nursing 09/11/22 08:00 09/11/22 08:15 09/11/22 08:30 Temperature Temperature Source Pulse Rate 103 H 100 H 102 H Pulse Rate [Apical ] Pulse Rate from Sp O2 Sensor 103 H Pulse Rhythm Respiratory Rate 33 H 34 H 30 H Respiratory Effort / Characteristics Respiratory Depth Blood Pressure Blood Pressure [Ri ght Arm] Blood Pressure Angelita n Blood Pressure Angelita n [Right Arm] Blood Pressure Pos ition Pulse Oximetry 91 Oxygen Delivery Me thod Oxygen Flow Rate Sepsis Recent Feve r Within 48 Hours Sepsis New/Unexpla ined Change in Men brad Status Sepsis Action Take n by Nursing 09/11/22 08:45 09/11/22 09:00 09/11/22 09:15 Temperature Temperature Source Pulse Rate 101 H 98 H 100 H Pulse Rate [Apical ] Pulse Rate from Sp O2 Sensor 95 H Pulse Rhythm Respiratory Rate 34 H 33 H 21 Respiratory Effort / Characteristics Respiratory Depth Blood Pressure Blood Pressure [Ri ght Arm] Blood Pressure Angelita n Blood Pressure Angelita n [Right Arm] Blood Pressure Pos ition Pulse Oximetry 93 Oxygen Delivery Me thod Nebulizer Oxygen Flow Rate Sepsis Recent Feve r Within 48 Hours Sepsis New/Unexpla ined Change in Men brad Status Sepsis Action Take n by Nursing 09/11/22 09:30 09/11/22 09:55 09/11/22 10:00 Temperature Temperature Source Pulse Rate 101 H 108 H 104 H Pulse Rate [Apical ] Pulse Rate from Sp O2 Sensor 110 H 105 H Pulse Rhythm Respiratory Rate 27 H 28 H 28 H Respiratory Effort / Characteristics Respiratory Depth Blood Pressure Blood Pressure [Ri ght Arm] Blood Pressure Angelita n Blood Pressure Angelita n [Right Arm] Blood Pressure Pos ition Pulse Oximetry 95 95 Oxygen Delivery Me thod Nasal Cannula Nasal Cannula Oxygen Flow Rate 3 3 Sepsis Recent Feve r Within 48 Hours Sepsis New/Unexpla ined Change in Men brad Status Sepsis Action Take n by Nursing 09/11/22 10:08 09/11/22 10:08 09/11/22 10:15 Temperature Temperature Source Pulse Rate 103 H 107 H Pulse Rate [Apical ] Pulse Rate from Sp O2 Sensor 104 H 108 H Pulse Rhythm Respiratory Rate 25 H 26 H Respiratory Effort / Characteristics Respiratory Depth Blood Pressure 166/91 H Blood Pressure [Ri ght Arm] Blood Pressure Angelita n 116 Blood Pressure Angelita n [Right Arm] Blood Pressure Pos ition Pulse Oximetry 95 96 Oxygen Delivery Me thod Nasal Cannula Nasal Cannula Oxygen Flow Rate 3 3 Sepsis Recent Feve r Within 48 Hours Sepsis New/Unexpla ined Change in Men brad Status Sepsis Action Take n by Nursing 09/11/22 10:30 09/11/22 10:30 09/11/22 11:11 Temperature Temperature Source Pulse Rate 110 H Pulse Rate [Apical ] Pulse Rate from Sp O2 Sensor 98 H Pulse Rhythm Respiratory Rate 30 H Respiratory Effort / Characteristics Respiratory Depth Blood Pressure 159/88 H Blood Pressure [Ri ght Arm] Blood Pressure Angelita n 111 Blood Pressure Angelita n [Right Arm] Blood Pressure Pos ition Pulse Oximetry 92 Oxygen Delivery Me thod Nasal Cannula Nasal Cannula Oxygen Flow Rate 3 3 Sepsis Recent Feve r Within 48 Hours Sepsis New/Unexpla ined Change in Men brad Status Sepsis Action Take n by Nursing 09/11/22 10:45 09/11/22 11:00 09/11/22 11:00 Temperature Temperature Source Pulse Rate 106 H 105 H Pulse Rate [Apical ] Pulse Rate from Sp O2 Sensor 107 H Pulse Rhythm Respiratory Rate 25 H 23 Respiratory Effort / Characteristics Respiratory Depth Blood Pressure 157/81 H Blood Pressure [Ri ght Arm] Blood Pressure Angelita n 106 Blood Pressure Angelita n [Right Arm] Blood Pressure Pos ition Pulse Oximetry 96 Oxygen Delivery Me thod Nasal Cannula Oxygen Flow Rate 3 Sepsis Recent Feve r Within 48 Hours Sepsis New/Unexpla ined Change in Men brad Status Sepsis Action Take n by Nursing Physical Exam: Physical Exam GENERAL: Ill-appearing. HENT: Exam performed. - Head: Normocephalic and atraumatic. CV: Tachycardic rate, regular rhythm, normal heart sounds and intact distal pulses. There is no peripheral edema. Palpable radial pulses bue. PULM/CHEST: Rhonchi bilaterally. Expiratory wheezes bilaterally. Inspiratory rales at the bases bilaterally. ABD: The abdomen is soft. Peritoneal dialysis catheter in place. MUSC/SKEL: AV fistula in the left upper extremity. NEURO: Motor and sensation grossly intact. Course Course 0803: The patient was evaluated in room C3. A complete history and physical exam was performed Cardiac monitoring: An order was placed for continuous cardiac monitoring. The monitor shows a rate of 100 with sinus rhythm interpreted by me Patient found to be hypoxic on room air. Supplemental oxygen was applied via nasal cannula which improved the patient's oxygen saturation. Albuterol treatments and steroids ordered for the patient given his wheezing. External medical records reviewed. Patient was admitted to this facility from August 19 to August 23, 2022. Patient has a history of end-stage renal disease and does peritoneal dialysis 4 times daily and is awaiting transplant. During this admission the patient had a hemoglobin of 7 and received 2 units of packed red blood cells. On August 26, 2022 the patient was evaluated for malfunctioning AV fistula and had a percutaneous transluminal angioplasty done by Dr. Viera which resulted in good flow through the patient's fistula. Patient states he is still only using his peritoneal dialysis catheter and is not on hemodialysis. 0850: Patient's [id number] i-STAT shows potassium 6.6. Calcium gluconate ordered for the patient. 0930: Patient's metabolic profile does show potassium 6.6. Insulin glucose also ordered for the patient. Only 5 units of insulin ordered for patient as he is hyperglycemic also. Chest x-ray shows that the patient is fluid overloaded. Hemoglobin 10.4. VBG within normal limits. High-sensitivity troponin and BNP elevated patient is not reporting no chest pain at this time. 1020: Vital signs stable supplemental oxygen. CTA of the chest is negative for pulmonary embolus. Patient will be admitted to the [facility] hospitalist team. Administered Medications Discontinued Medications Albuterol (Albut/Ipratrop 3mg/0.5mg Neb 3 Ml Vial) 3 ml NEB NOW STA; Protocol Stop: 09/11/22 08:15 Last Admin: 09/11/22 09:06 Dose: 3 ml Documented By: CHAPIN Albuterol (Albut/Ipratrop 3mg/0.5mg Neb 3 Ml Vial) 3 ml NEB NOW STA; Protocol Stop: 09/11/22 08:15 Last Admin: 09/11/22 09:06 Dose: 3 ml Documented By: CHAPIN Dextrose (Dextrose 50% 50 Ml Syringe) 50 ml IV NOW STA Stop: 09/11/22 09:28 Last Admin: 09/11/22 10:17 Dose: 50 ml Documented By: CHAPIN Calcium Gluconate 1,000 mg/ (Dextrose) 60 mls @ 240 mls/hr IV ONCE STA Stop: 09/11/22 09:01 Last Infusion: 09/11/22 09:32 Dose: 0 mls/hr Documented By: Admin: 09/11/22 09:17 Dose: 240 mls/hr Documented By: CHAPIN Insulin Human Regular 5 units/ (Syringe) 9.9 mls @ 3 mls/sec IV ONE STA Stop: 09/11/22 09:28 Last Admin: 09/11/22 10:17 Dose: 3 mls/sec Documented By: CHAPIN Co-signed By: CHARLES Cefepime HCl (Maxipime) 2,000 mg in 20 mls @ 5 mls/min IV NOW STA; Protocol Stop: 09/11/22 09:48 Last Admin: 09/11/22 10:13 Dose: 5 mls/min Documented By: CHAPIN Vancomycin HCl 1,500 mg/ (Sodium Chloride) 530 mls @ 200 mls/hr IV NOW ONE Stop: 09/11/22 12:23 Last Admin: 09/11/22 10:23 Dose: 200 mls/hr Documented By: CHAPIN Insulin Human Regular (Novolin-R Insulin Per Unit Charge) Confirm Administered Dose 5 units .ROUTE .STK-MED ONE Stop: 09/11/22 10:08 Last Admin: 09/11/22 10:16 Dose: Not Given Documented By: CHAPIN Ioversol (Optiray 320 500ml) 117 ml IV ONCE ONE Stop: 09/11/22 09:46 Last Admin: 09/11/22 09:48 Dose: 117 ml Documented By: RADHA Methylprednisolone (Methylprednisolone 125 Mg/2 Ml Vial) 125 mg IV NOW STA Stop: 09/11/22 08:15 Last Admin: 09/11/22 09:04 Dose: 125 mg Documented By: CHAPIN Miscellaneous (Stat Iv) 1 each N/A NOW STA Stop: 09/11/22 08:48 Last Admin: 09/11/22 10:16 Dose: Not Given Documented By: CHAPIN Medical Decision Making Medical Records Attestation: I reviewed the patient's medical records. External medical records reviewed. Patient was admitted to this facility from August 19 to August 23, 2022. Patient has a history of end-stage renal disease and does peritoneal dialysis 4 times daily and is awaiting transplant. During this admission the patient had a hemoglobin of 7 and received 2 units of packed red blood cells. On August 26, 2022 the patient was evaluated for malfunctioning AV fistula and had a percutaneous transluminal angioplasty done by Dr. Viera which resulted in good flow through the patient's fistula. Laboratory Data Attestation: I reviewed the patient's lab results. 09/11/22 08:52 09/11/22 08:44 Lab Results 09/11/22 09/11/22 09/11/22 Range/Units 08:42 08:44 08:44 WBC (4.8-10.8) K/ul RBC (4.70-6.10) M/uL Hgb (14.0-18.0) g/dl POC Hgb 11.2 L (14.0-18.0) g/dl Hct (42.0-52.0) % POC Hct 33 L (42-52) % MCV (80.0-100.0) fL MCH (25.0-34.0) pg MCHC (32.0-36.0) g/dL RDW Std Deviation (36.4-46.3) fL RDW Coeff of Diamond (11.5-14.5) % Plt Count (130-400) K/uL MPV (9.4-12.4) fL Immature Gran % (Auto) % Neut % (Auto) % Lymph % (Auto) % [place] % (Auto) % Eos % (Auto) % Baso % (Auto) % Neut # (Auto) (1.40-6.50) K/uL Lymph # (Auto) (1.2-3.4) K/uL [place] # (Auto) (0.11-0.59) K/uL Eos # (Auto) (0-0.50) K/uL Baso # (Auto) (0-0.2) K/uL Immature Gran # (Auto) (0.01-0.20) K/uL PT (9.0-12.0) Seconds INR (0.9-1.1) APTT (21.0-31.0) Seconds PTT Ratio VBG pH (7.36-7.41) VBG pCO2 (38-50) mmHg VBG pO2 mmHg VBG HCO3 mmol/L VBG O2 Saturation % VBG Base Excess mEq/L POC Sodium 133 L (135-144) mmol/L Sodium 137 (136-145) mmol/L POC Potassium 6.6 H* (3.3-5.0) mmol/L Potassium 6.6 H* (3.5-5.1) mmol/L POC Chloride 102 (101-112) mmol/L Chloride 95 L (98-107) mmol/L Carbon Dioxide 21 (21-32) mmol/L POC Total CO2 22 L (24-31) mmol/L Anion Gap 21 H (3-11) POC Anion Gap 16.0 (16-25) mmol/L POC BUN 117 H* (7-18) mg/dl BUN 113 H (6-23) mg/dl Creatinine 19.61 H* (0.6-1.4) mg/dl POC Creatinine > 20.0 H* (0.6-1.3) mg/dl Est Cr Clr Drug Dosing 3.9 ml/min Est GFR ( Amer) 2.5 ml/min Est GFR (Non-Af Amer) 2.1 ml/min BUN/Creatinine Ratio 5.8 L (10-20) Glucose 68 L (70-99(Fasting)) mg/dl POC Glucose (other) 68 L* (70-99) mg/dl Calcium 8.6 (8.5-10.1) mg/dl POC Ioniz Calcium Darnell 0.94 L (1.12-1.32) mmol/l Magnesium 2.4 (1.7-2.4) mg/dl Troponin I High Sens 325.7 H* (0-20) pg/ml B-Natriuretic Peptide (0-100) pg/ml Lipase 18 (11-82) U/L SARS-CoV-2 (PCR) (Negative) Influenza Type A (PCR) (Neg) Influenza Type B (PCR) (Neg) RSV (RT-PCR) (Neg) Blood Type Antibody Screen 09/11/22 09/11/22 09/11/22 Range/Units 08:52 08:52 08:52 WBC 10.35 (4.8-10.8) K/ul RBC 3.88 L (4.70-6.10) M/uL Hgb 10.4 L (14.0-18.0) g/dl POC Hgb (14.0-18.0) g/dl Hct 33.4 L (42.0-52.0) % POC Hct (42-52) % MCV 86.1 (80.0-100.0) fL MCH 26.8 (25.0-34.0) pg MCHC 31.1 L (32.0-36.0) g/dL RDW Std Deviation 57.4 H (36.4-46.3) fL RDW Coeff of Diamond 18.3 H (11.5-14.5) % Plt Count 373 (130-400) K/uL MPV 10.6 (9.4-12.4) fL Immature Gran % (Auto) 0.3 % Neut % (Auto) 66.0 % Lymph % (Auto) 22.7 % [place] % (Auto) 8.5 % Eos % (Auto) 1.7 % Baso % (Auto) 0.8 % Neut # (Auto) 6.83 H (1.40-6.50) K/uL Lymph # (Auto) 2.35 (1.2-3.4) K/uL [place] # (Auto) 0.88 H (0.11-0.59) K/uL Eos # (Auto) 0.18 (0-0.50) K/uL Baso # (Auto) 0.08 (0-0.2) K/uL Immature Gran # (Auto) 0.03 (0.01-0.20) K/uL PT 11.9 (9.0-12.0) Seconds INR 1.1 (0.9-1.1) APTT 41.8 H (21.0-31.0) Seconds PTT Ratio 1.5 VBG pH 7.31 L (7.36-7.41) VBG pCO2 45 (38-50) mmHg VBG pO2 31 mmHg VBG HCO3 23 mmol/L VBG O2 Saturation < 60.0 % VBG Base Excess -3.7 mEq/L POC Sodium (135-144) mmol/L Sodium (136-145) mmol/L POC Potassium (3.3-5.0) mmol/L Potassium (3.5-5.1) mmol/L POC Chloride (101-112) mmol/L Chloride (98-107) mmol/L Carbon Dioxide (21-32) mmol/L POC Total CO2 (24-31) mmol/L Anion Gap (3-11) POC Anion Gap (16-25) mmol/L POC BUN (7-18) mg/dl BUN (6-23) mg/dl Creatinine (0.6-1.4) mg/dl POC Creatinine (0.6-1.3) mg/dl Est Cr Clr Drug Dosing ml/min Est GFR ( Amer) ml/min Est GFR (Non-Af Amer) ml/min BUN/Creatinine Ratio (10-20) Glucose (70-99(Fasting)) mg/dl POC Glucose (other) (70-99) mg/dl Calcium (8.5-10.1) mg/dl POC Ioniz Calcium Darnell (1.12-1.32) mmol/l Magnesium (1.7-2.4) mg/dl Troponin I High Sens (0-20) pg/ml B-Natriuretic Peptide (0-100) pg/ml Lipase (11-82) U/L SARS-CoV-2 (PCR) (Negative) Influenza Type A (PCR) (Neg) Influenza Type B (PCR) (Neg) RSV (RT-PCR) (Neg) Blood Type Antibody Screen 09/11/22 09/11/22 09/11/22 Range/Units 08:52 08:52 09:10 WBC (4.8-10.8) K/ul RBC (4.70-6.10) M/uL Hgb (14.0-18.0) g/dl POC Hgb (14.0-18.0) g/dl Hct (42.0-52.0) % POC Hct (42-52) % MCV (80.0-100.0) fL MCH (25.0-34.0) pg MCHC (32.0-36.0) g/dL RDW Std Deviation (36.4-46.3) fL RDW Coeff of Diamond (11.5-14.5) % Plt Count (130-400) K/uL MPV (9.4-12.4) fL Immature Gran % (Auto) % Neut % (Auto) % Lymph % (Auto) % [place] % (Auto) % Eos % (Auto) % Baso % (Auto) % Neut # (Auto) (1.40-6.50) K/uL Lymph # (Auto) (1.2-3.4) K/uL [place] # (Auto) (0.11-0.59) K/uL Eos # (Auto) (0-0.50) K/uL Baso # (Auto) (0-0.2) K/uL Immature Gran # (Auto) (0.01-0.20) K/uL PT (9.0-12.0) Seconds INR (0.9-1.1) APTT (21.0-31.0) Seconds PTT Ratio VBG pH (7.36-7.41) VBG pCO2 (38-50) mmHg VBG pO2 mmHg VBG HCO3 mmol/L VBG O2 Saturation % VBG Base Excess mEq/L POC Sodium (135-144) mmol/L Sodium (136-145) mmol/L POC Potassium (3.3-5.0) mmol/L Potassium (3.5-5.1) mmol/L POC Chloride (101-112) mmol/L Chloride (98-107) mmol/L Carbon Dioxide (21-32) mmol/L POC Total CO2 (24-31) mmol/L Anion Gap (3-11) POC Anion Gap (16-25) mmol/L POC BUN (7-18) mg/dl BUN (6-23) mg/dl Creatinine (0.6-1.4) mg/dl POC Creatinine (0.6-1.3) mg/dl Est Cr Clr Drug Dosing ml/min Est GFR ( Amer) ml/min Est GFR (Non-Af Amer) ml/min BUN/Creatinine Ratio (10-20) Glucose (70-99(Fasting)) mg/dl POC Glucose (other) (70-99) mg/dl Calcium (8.5-10.1) mg/dl POC Ioniz Calcium Darnell (1.12-1.32) mmol/l Magnesium (1.7-2.4) mg/dl Troponin I High Sens (0-20) pg/ml B-Natriuretic Peptide > 4700 H (0-100) pg/ml Lipase (11-82) U/L SARS-CoV-2 (PCR) NEGATIVE (Negative) Influenza Type A (PCR) Negative (Neg) Influenza Type B (PCR) Negative (Neg) RSV (RT-PCR) Negative (Neg) Blood Type O Positive Antibody Screen NEGATIVE Imaging Data Attestation: I personally reviewed and interpreted this imaging study as follows: My Impression: Chest x-ray: Cardiomegaly with cephalization right middle lobe and lower lobe infiltrate. Radiologist's Impression: Chest X-Ray 09/11/22 08:05 SINGLE VIEW CHEST CLINICAL HISTORY: Dyspnea. FINDINGS: An AP, portable, upright chest radiograph is compared to study dated 08/19/2022 and correlated with chest CT dated 06/12/2022. The heart is enlarged noting atherosclerotic calcification of the thoracic aorta. There is pulmonary vascular congestion. There are bilateral airspace opacities, greatest in the right lung base. There is chronic elevation of the left hemidiaphragm. Small pleural effusions are noted with bibasilar consolidation. No pneumothorax is seen. The skeletal structures are osteopenic. The bony thorax is grossly intact. Calcific tendinopathy is noted in the left shoulder. IMPRESSION: 1. Cardiomegaly with evidence of congestive failure. 2. Bilateral airspace opacities likely represent pulmonary edema. Correlate clinically for evidence of a superimposed infectious/inflammatory pneumonitis. Radiographic follow-up to resolution is recommended. 3. Small pleural effusions ACT 112: Negative or not required by law. Electronically signed by: Tone Mccain M.D. 09/11/2022 9:33 AM ECG Data Attestation: I personally reviewed and interpreted this ECG as follows: Interpretation: Sinus rhythm with a rate of 103. GA QRS and QTc intervals within normal limits. Peaked T waves in leads V2, V3, V4. No ST elevation or ST depression. [facility] Narrative 0803: The patient was evaluated in room C3. A complete history and physical exam was performed Cardiac monitoring: An order was placed for continuous cardiac monitoring. The monitor shows a rate of 100 with sinus rhythm interpreted by me Patient found to be hypoxic on room air. Supplemental oxygen was applied via nasal cannula which improved the patient's oxygen saturation. Albuterol treatments and steroids ordered for the patient given his wheezing. External medical records reviewed. Patient was admitted to this facility from August 19 to August 23, 2022. Patient has a history of end-stage renal disease and does peritoneal dialysis 4 times daily and is awaiting transplant. During this admission the patient had a hemoglobin of 7 and received 2 units of packed red blood cells. On August 26, 2022 the patient was evaluated for malfunctioning AV fistula and had a percutaneous transluminal angioplasty done by Dr. Viera which resulted in good flow through the patient's fistula. Patient states he is still only using his peritoneal dialysis catheter and is not on hemodialysis. 0850: Patient's [id number] i-STAT shows potassium 6.6. Calcium gluconate ordered for the patient. 0930: Patient's metabolic profile does show potassium 6.6. Insulin glucose also ordered for the patient. Only 5 units of insulin ordered for patient as he is hyperglycemic also. Chest x-ray shows that the patient is fluid overloaded. Hemoglobin 10.4. VBG within normal limits. High-sensitivity troponin and BNP elevated patient is not reporting no chest pain at this time. 1020: Vital signs stable supplemental oxygen. CTA of the chest is negative for pulmonary embolus. [facility] & Plan Hyperkalemia, Elevated troponin, Pneumonia, ESRD (end stage renal disease) on dialysis, Fluid overload Critical Care Time Critical Care Time: Yes Total Critical Care Time: 67 I have personally spent greater than 67 minutes of critical care time in the direct management of this patient. This includes bedside care, interpretation of diagnostic studies, and testing, discussion with consultants, patient, and family members, and other required patient management activities. This 67 minutes is in excess of all separately billable procedures. Discharge Plan Visit Data Chief Complaint: Shortness of Breath/Dyspnea Stated Complaint: SOB ED Provider: Rudy Coelho Discharge Problem: Hyperkalemia, Elevated troponin, Pneumonia, ESRD (end stage renal disease) on dialysis, Fluid overload Patient Disposition: Admitted As Inpatient Discharge Instructions Interventions: ED Discharge Assessment Last Done: 09/11/22 11:11
[2022-09-11 09:29] LABS: Potassium 6.6 mmol/L (3.5-5.1)
[2022-09-11 09:30] LABS: BUN Creatinine Ratio 5.8 (10-20); Calcium 8.6 mg/dl (8.5-10.1); Creatinine Clr Calc Pharmacy 3.9 ml/min; Est GFR (African American) 2.5 ml/min; Est GFR (Non-African American) 2.1 ml/min; Magnesium 2.4 mg/dl (1.7-2.4)
[2022-09-11 09:31] LABS: INR 1.1 (0.9-1.1); Partial Thromboplastin Ratio 1.5; Partial Thromboplastin Time 41.8 Seconds (21.0-31.0); Prothrombin Time 11.9 Seconds (9.0-12.0)
--- NOTE | 2022-09-11 09:35 | XRay Report ---
SINGLE VIEW CHEST CLINICAL HISTORY: Dyspnea. FINDINGS: An AP, portable, upright chest radiograph is compared to study dated 08/19/2022 and correlat ed with chest CT dated 06/12/2022. The heart is enlarged noting atherosclerotic calcification of the thoracic aorta. There is pulmonary vascular congestion. There are bilateral airspace opacities, great est in the right lung base. There is chronic elevation of the left hemidiaphragm. Small pleural effus ions are noted with bibasilar consolidation. No pneumothorax is seen. The skeletal structures are ost eopenic. The bony thorax is grossly intact. Calcific tendinopathy is noted in the left shoulder. IMPRESSION: 1. Cardiomegaly with evidence of congestive failure. 2. Bilateral airspace opacities likely represent pulmonary edema. Correlate clinically for evidence o f a superimposed infectious/inflammatory pneumonitis. Radiographic follow-up to resolution is recomme nded. 3. Small pleural effusions ACT 112: Negative or not required by law. Electronically signed by: Tone Mccain M.D. 09/11/2022 9:33 AM
[2022-09-11 09:40] LABS: Troponin I High Sensitivity 325.7 pg/ml (0-20)
[2022-09-11] MEDS ORDERED: CEFEPIME 2,000 MG/20 ML VIAL IV STA (09:45)
[2022-09-11] MEDS ORDERED: VANCOMYCIN CONSULT ACTIVE PRN (09:45)
[2022-09-11] MEDS ORDERED: VANCOMYCIN HCL 1,500 MG in SODIUM CHLORIDE 0.9% 500 ML IV ONE (09:45)
[2022-09-11] MEDS ORDERED: OPTIRAY 320 500ml IV ONE (09:45)
[2022-09-11 09:58] LABS: Influenza A virus by PCR Negative (Neg); Influenza B virus by PCR Negative (Neg); RSV by PCR Negative (Neg); SARS CoV2 RNA(COVID-19) Ceph NEGATIVE (Negative)
[2022-09-11] MEDS ORDERED: NovoLIN-R INSULIN PER UNIT CHARGE ONE (10:07)
--- NOTE | 2022-09-11 10:09 | CT Scan Report ---
CT ANGIOGRAM OF THE CHEST CLINICAL HISTORY: Cough. Hemoptysis. COMPARISON STUDY: Chest x-ray dated 09/11/2022. Chest CT dated 06/12/2022. TECHNIQUE: Following the IV administration of 117 cc of Optiray 320, CT angiogram of the chest was pe rformed from the upper abdomen to the thoracic inlet utilizing the pulmonary embolus protocol. Images are reviewed in the axial, sagittal, and coronal planes. 3-D MIPS images are created and assessed. I V contrast was administered without complication. A dose lowering technique was utilized adhering to the principles of ALARA. The examination is compromised by motion artifact. CT DOSE: 451.31 mGy.cm FINDINGS: Thyroid: Imaged portions of the thyroid gland are normal in size and attenuation. Thoracic aorta: There is atherosclerotic calcification of the thoracic aorta, which is normal in aren arcenio and demonstrates standard 3-vessel arch anatomy. No dissection is seen. Pulmonary vasculature: The pulmonary trunk is dilated, measuring 3.7 cm in transverse diameter. This suggests pulmonary artery hypertension. There are no filling defects identified in main, lobar, or pr oximal segmental pulmonary branches to suggest pulmonary embolus. Evaluation of the distal segmental and subsegmental branches is compromised by motion artifact. Heart: The heart is enlarged and without pericardial effusion. The coronary arteries are densely calc ified. Lungs and pleural spaces: Evaluation of the lung parenchyma is degraded by motion artifact. There are moderate pleural effusions with dependent consolidation. Milder patchy airspace opacities are seen t hroughout both lungs. The trachea and central airways are patent. Intralobular septal thickening is o bserved. A 1.1 cm right apical nodular opacity on image #244 is unchanged. Mediastinum: There is no mediastinal lymphadenopathy. Dee: Clear. Axillae: There is no axillary lymphadenopathy. Upper abdomen: There is a small volume of perihepatic ascites. Partially visualized upper abdominal v iscera is within normal limits. Skeletal structures: The skeletal structures are osteopenic. Degenerative change is noted in the shou lders and thoracic spine. No lytic or blastic bony lesions are seen. Soft tissues: There is body wall edema. IMPRESSION: 1. Motion compromised examination. 2. There is no evidence of pulmonary embolus in the main, lobar, or proximal segmental pulmonary narcisa luis fernando. Evaluation of the peripheral branches is degraded by motion artifact. 3. Cardiomegaly with evidence of congestive failure. 4. Bilateral airspace opacities likely represent pulmonary edema. Correlate clinically for evidence o f a superimposed infectious/inflammatory pneumonitis. Radiographic follow-up to resolution is recomme nded. 5. Moderate pleural effusions with dependent consolidation. 6. Small volume perihepatic ascites. 7. A 1.1 cm right apical nodular opacity is similar to previous. A six-month follow-up chest CT is ag ain recommended for reassessment. 8. Additional findings as above. ACT 112: Negative or not required by law. Electronically signed by: Tone Mccain M.D. 09/11/2022 10:07 AM
--- NOTE | 2022-09-11 10:34 | History & Physical Report ---
Date of Service September 11, 2022 Assessment & Plan (1) Peritoneal dialysis catheter in situ: (2) Dialysis AV fistula malfunction: (3) Kidney transplant candidate: (4) Hyperkalemia: (5) Symptomatic anemia: (6) Hypertension: (7) SOB (shortness of breath): Plan 66 y/o recent admission 08/19-08/23 with 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 Vascular and Nephro consult. E-lyte monitoring. Consider goals of care conversation with palliative during this admission. Peritoneal dialysis catheter in situ: Dialysis AV Fistula malfunction: Kidney Transplant Candidate: Hyperkalemia: -Has been on peritoneal dialysis 4 times a day -He takes care of dialysis by himself -He does have a fistula on the left antecubital fossa; malfunction last admission -Vascular consult to discuss appropriateness of use -Nephro consult; long tx with numerous cycles to occur today 09/11 -Nephro ordered Valtessa; pt Anuric at baseline -K+ 6.6; ca+ Gluconate and Insulin 5 units IV given in ED; Q6 BMP's -Consider palliative medicine if no improvement for goals of care conversation Cough: -CXR: Cardiomegaly with pattern of CHF, small pleural effusions -Sputum and MRSA cx pending -Vanco given in ED; will continue Cefipime + Doxy -blood cultures ordered -Lactate ordered HTN: -Takes Amlodipine, Clonidine patch, Losartan, metoprolol, Hydralazine; Continue -SBP 173/105: Metoprolol 5 mg IV admin Disposition: PCP: Dr. Smith Code Status: Full Code VTE Prophylaxis: Heparin SQ A total of 88 minutes was spent with greater than 50% of that time personally reviewing all current laboratory work and diagnostic imaging studies obtained in the ED. Additionally, I was able to review the patients past medication reconciliation and history with direct visualization in the patients chart. Included in the time above, a portion of that time was spent assessing the patient while discussing and collaborating with specialists, if necessary, and making medical decisions regarding orders to be placed. All of the aforementioned completed while collaborating with Dr. Ramos for a full treatment plan. Please see his addendum for further details. History of Present Illness Chief Complaint: hypoxia Primary Care Provider: Mariel Walter DO Mr. Salinas is a 66 year old male that presented to the [facility] ED with increased SOB and BL LE swelling over the past 2-3 days. He was recently admitted from 08/19-08/23 with similar symptoms, including sympatomatic anemia s/p PRBC transfusion. In the ED was found to be hyperkalemic 6.6, creatinine 19.61. Last admission, on 08/26 he underwent AV fistulogram with angioplasty. He was accessed for HD by route of his fistula , but had malfunction during procedure. BNP > 4700 and is having hypoxia, now on 3LNC. Does not wear supplemental O2 at home. He follows with Dr. Florence in [place] with his dialysis. He reports compliance with his treatments and claims to perform 2 manual exchanges daily with 5 total cycles. Building Pressure Washer ipad utilized in the room with Racquel #[id number]. He reports losing his appetite over the past 2 days, but claims to be compliant with treatment and medication. Reports thick blood tinged sputum over past 3 days. Nephrology consult placed. Discussed with Dr. Maranda Munson who plans to perform a long exchange this afternoon with multiple cycles overnight. Confirmed code status to be full code and that his daughter Sydney is his decision maker: [phone]. Patient will be admitted for further evaluation and management. Please see A/P for further details. Allergies Allergy/AdvReac Type Severity Reaction Status Date / Time No Known Allergies Allergy Verified 09/11/22 09:01 Home Medications Medication Instructions Recorded Confirmed Type amlodipine 10 mg tablet 10 mg PO DAILY 05/15/19 09/11/22 History ergocalciferol (vitamin D2) 1,250 1,250 mcg PO WK 10/28/20 09/11/22 History mcg (50,000 unit) capsule (Vitamin D2) losartan 50 mg tablet (Cozaar) 50 mg PO BID 10/28/20 09/11/22 History allopurinol 100 mg tablet 100 mg PO DAILY 06/12/22 09/11/22 History carvedilol 6.25 mg tablet 6.25 mg PO BID 06/12/22 09/11/22 History clonidine 0.2 mg/24 hr weekly 0.2 mg transdermal WK 06/12/22 09/11/22 History transdermal patch metoprolol tartrate 25 mg tablet 25 mg PO BID 06/12/22 09/11/22 History calcitriol 0.5 mcg capsule 1.5 mcg PO DAILY 08/19/22 09/11/22 History cinacalcet 30 mg tablet (Sensipar) 30 mg PO DAILY 08/19/22 09/11/22 History epoetin beta, methoxy peg 200 200 mcg subcut MONTHLY 08/19/22 09/11/22 History mcg/0.3 mL injection syringe (Mircera) hydralazine 100 mg tablet 100 mg PO QID 08/19/22 09/11/22 History vit B,C-folic ac 800 mcg-zinc 12.5 1 tab PO DAILY 08/19/22 09/11/22 History mg-selen-D3 2,000 unit-vit E tablet (RenaPlex-D) pantoprazole 40 mg tablet,delayed 40 mg PO QAM 30 days #30 tabs 08/23/22 09/11/22 Rx release Past Med/Surg History Medical History (Updated 09/11/22 @ 13:57 by Rita Munson MD, PhD) AV fistula Benign prostatic hyperplasia with urinary obstruction ESRD (end stage renal disease) on dialysis PD patient; follows with Dr. 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 Fluid overload Hypertension Kidney transplant candidate reason for colonoscopy to get on list Nephrolithiasis Peritoneal dialysis catheter in place Restless leg syndrome Surgical History H/O inguinal hernia repair History of colonoscopy History of cystoscopy History of thoracentesis History of tooth extraction Status post creation of arteriovenous fistula left arm Family History Other No family history of adverse response to anesthesia No significant family history Social History Smoking Status: Never smoker Second Hand Exposure: No; Do You Dip or Chew Tobacco: No; Tobacco Cessation Education Requested by Patient: No Hx Alcohol Use: No Hx Substance Use: No Preferred Language: Togolese Communication Ability: Effective Communication Tools: IPad Delivery And Mail Sorter Required: Yes, Video and Voice Beliefs That Will Affect Care: None marital status: Current Living Situation: Spouse current occupational status: employed Other Information That Helps Us Care for You: No Feels Safe at Home: Yes Safety Concerns: Feels Safe At This Time Assistive Devices: None Review of Systems Review of Systems: Neuro: (-) Falls, trauma, slurred speech HEENT: (-) GA, dizziness, dysphagia, visual or auditory changes CV: (-) CP, palpitations, (+) lower extremity swelling Resp: (+) SOB GI: (-) appetite changes, N/V/D, bowel changes : (-) urinary changes Skin: (-) rashes Psych: (-) anxiety, depression Physical Exam Physical Exam: Neuro: AAOx4, PERRLA, no aphagia, memory changes, CNII-XII grossly intact HEENT: head normocephalic, moist mucus membranes CV: S1/S2, (-) M/G/R, trace BL LE edema, cap refill < 3 seconds Resp: Lungs CTA in all valle. On 3LNC GI: Abdomen S/NT/ND, Ax4 bowel sounds, (-) CVA tenderness Musculoskeletal: 5/5 B/L UE strength, 5/5 B/L LE strength. No gait disturbance Skin: (-) rashes , (-) erythema. Psych: euthymic mood Results & Data Results & Data ([facility]) Vital Signs (Past 12 Hours) Vital Signs Temp Pulse Pulse Resp BP BP Pulse Ox 09/11/22 09:15 100 H 21 93 09/11/22 09:00 98 H 33 H 09/11/22 08:45 101 H 34 H 09/11/22 08:30 102 H 30 H 09/11/22 08:15 100 H 34 H 09/11/22 08:00 103 H 33 H 91 09/11/22 07:58 102 H 34 H 85 L 09/11/22 09:08 99 H 17 160/105 H 09/11/22 09:08 99 H 18 94 09/11/22 08:05 97 09/11/22 08:05 37.6 C H 103 H 19 186/103 H 97 09/11/22 07:59 102 H O2 Del Method O2 Flow Rate 09/11/22 09:15 Nebulizer 09/11/22 09:00 09/11/22 08:45 09/11/22 08:30 09/11/22 08:15 09/11/22 08:00 09/11/22 07:58 09/11/22 09:08 Nasal Cannula 09/11/22 09:08 Nasal Cannula 3 09/11/22 08:05 Nebulizer 8 09/11/22 08:05 Nebulizer 8 09/11/22 07:59 Laboratory Results Short CBC 09/11/22 Range/Units 08:52 WBC 10.35 (4.8-10.8) K/ul Hgb 10.4 L (14.0-18.0) g/dl Hct 33.4 L (42.0-52.0) % Plt Count 373 (130-400) K/uL BMP 09/11/22 08:44 Sodium 137 Potassium 6.6 H* Chloride 95 L Carbon Dioxide 21 BUN 113 H Creatinine 19.61 H* Glucose 68 L Calcium 8.6 Diagnostic Findings Chest X-Ray 09/11/22 08:05 SINGLE VIEW CHEST CLINICAL HISTORY: Dyspnea. FINDINGS: An AP, portable, upright chest radiograph is compared to study dated 08/19/2022 and correlated with chest CT dated 06/12/2022. The heart is enlarged noting atherosclerotic calcification of the thoracic aorta. There is pulmonary vascular congestion. There are bilateral airspace opacities, greatest in the right lung base. There is chronic elevation of the left hemidiaphragm. Small pleural effusions are noted with bibasilar consolidation. No pneumothorax is seen. The skeletal structures are osteopenic. The bony thorax is grossly intact. Calcific tendinopathy is noted in the left shoulder. IMPRESSION: 1. Cardiomegaly with evidence of congestive failure. 2. Bilateral airspace opacities likely represent pulmonary edema. Correlate clinically for evidence of a superimposed infectious/inflammatory pneumonitis. Radiographic follow-up to resolution is recommended. 3. Small pleural effusions ACT 112: Negative or not required by law. Electronically signed by: Tone Mccain M.D. 09/11/2022 9:33 AM Chest CTA 09/11/22 08:15 CT ANGIOGRAM OF THE CHEST CLINICAL HISTORY: Cough. Hemoptysis. COMPARISON STUDY: Chest x-ray dated 09/11/2022. Chest CT dated 06/12/2022. TECHNIQUE: Following the IV administration of 117 cc of Optiray 320, CT angiogram of the chest was performed from the upper abdomen to the thoracic inlet utilizing the pulmonary embolus protocol. Images are reviewed in the axial, sagittal, and coronal planes. 3-D MIPS images are created and assessed. IV contrast was administered without complication. A dose lowering technique was utilized adhering to the principles of ALARA. The examination is compromised by motion artifact. CT DOSE: 451.31 mGy.cm FINDINGS: Thyroid: Imaged portions of the thyroid gland are normal in size and attenuation. Thoracic aorta: There is atherosclerotic calcification of the thoracic aorta, which is normal in caliber and demonstrates standard 3-vessel arch anatomy. No dissection is seen. Pulmonary vasculature: The pulmonary trunk is dilated, measuring 3.7 cm in transverse diameter. This suggests pulmonary artery hypertension. There are no filling defects identified in main, lobar, or proximal segmental pulmonary branches to suggest pulmonary embolus. Evaluation of the distal segmental and subsegmental branches is compromised by motion artifact. Heart: The heart is enlarged and without pericardial effusion. The coronary arteries are densely calcified. Lungs and pleural spaces: Evaluation of the lung parenchyma is degraded by m otion artifact. There are moderate pleural effusions with dependent consolidation. Milder patchy airspace opacities are seen throughout both lungs. The trachea and central airways are patent. Intralobular septal thickening is observed. A 1.1 cm right apical nodular opacity on image #244 is unchanged. Mediastinum: There is no mediastinal lymphadenopathy. Dee: Clear. Axillae: There is no axillary lymphadenopathy. Upper abdomen: There is a small volume of perihepatic ascites. Partially visualized upper abdominal viscera is within normal limits. Skeletal structures: The skeletal structures are osteopenic. Degenerative change is noted in the shoulders and thoracic spine. No lytic or blastic bony lesions are seen. Soft tissues: There is body wall edema. IMPRESSION: 1. Motion compromised examination. 2. There is no evidence of pulmonary embolus in the main, lobar, or proximal segmental pulmonary arteries. Evaluation of the peripheral branches is degraded by motion artifact. 3. Cardiomegaly with evidence of congestive failure. 4. Bilateral airspace opacities likely represent pulmonary edema. Correlate clinically for evidence of a superimposed infectious/inflammatory pneumonitis. Radiographic follow-up to resolution is recommended. 5. Moderate pleural effusions with dependent consolidation. 6. Small volume perihepatic ascites. 7. A 1.1 cm right apical nodular opacity is similar to previous. A six-month follow-up chest CT is again recommended for reassessment. 8. Additional findings as above. ACT 112: Negative or not required by law. Electronically signed by: Tone Mccain M.D. 09/11/2022 10:07 AM Code Status & VTE Plan Code Status Full Code in the event of cardiac or respiratory arrest VTE Prophylaxis Plan VTE Prophylaxis will be ordered: Yes Supervising Physician Co-Signing Physician Notes Attending addendum: The patient was seen and examined in telemetry unit He has end-stage renal disease on peritoneal dialysis 4 times a day Has been complaining of cough with shortness of breath and symptoms of fluid overload for the last 7 days No fever and or chills but does have wheezing Complains to have swelling of the legs as well On examination Sitting at the edge of the bed with mild to moderate shortness of breath at rest Blood pressure noted to be high at 173/105-not sure if he has taken his morning blood pressure medications Chestcoarse crackles bilaterally Heart-S1-S2, regular Abdomen-benign Extremities-1+ edema bilaterally EMERGENCY MEDICAL SERVICE COORDINATOR-alert, awake and oriented x3 His admission labs, EKG and imaging studies reviewed End-stage renal disease on peritoneal dialysis seems to be not working appropriately Hyperkalemia and very high BUN and creatinine secondary to end-stage renal disease We will have long peritoneal dialysis today and possible vascular access for hemodialysis later on Has bronchitis doubt any pneumonia and will start with intravenous cefepime and doxycycline We will have nebulized bronchodilator to help cough Agree with assessment and plan as outlined above by Francine Ramos
[2022-09-11] MEDS ORDERED: ALUMINUM/MAGNESIUM SUSP 30 ML UDC PO PRN (10:37)
[2022-09-11] MEDS ORDERED: MAGNESIUM HYDROXIDE SUSP 30 ML UDC PO PRN (10:37)
[2022-09-11] MEDS ORDERED: POLYETHYLENE (MIRALAX) 17 GM PACK PO PRN (10:37)
[2022-09-11] MEDS ORDERED: ONDANSETRON INJ 2 MG/ML 2 ML VIAL IV PRN (10:37)
--- NOTE | 2022-09-11 11:54 | Nephrology Consultation ---
Date of Consultation September 11, 2022 Assessment & Plan (1) Hyperkalemia: with ECG changes; had IV calcium and insulin -low K diet ordered -started standing high dose patiromer 16.8 gm daily -aggressive dialysis as below -maintain teletypesetter monitor until K consistently < 5.7 -recheck BMP ordered for 1999 >> should be improving by then but will check in case further intervention required (2) Fluid overload: profound and due likely primarily to lack of adherence to PD regimen in a patient with no residual renal function Aggressive PD today >> 10 x 2L exchanges over 15 hrs favoring 4.25% dextrose to 2.5% in 3 to 1 ratio (3) ESRD (end stage renal disease) on dialysis: Please refer to my notes from last hospital admission: We had an extensive series of discussions that peritoneal dialysis is not working for him any longer with loss of his residual renal function. I have been urging him to consider changing to hemodialysis but to date he has declined this. -continue PD while in house -continue goals of care discussions while in house (4) Peritoneal dialysis catheter in situ: (5) Dialysis AV fistula malfunction: will not use today -recommend vascular consultation tomorrow to clarify whether this access is now functional; primary service to place consult History of Present Illness Reason for Consultation: PD pt with hyperkalemia, hypoxia Requesting Physician: JAIMEE Dwyer and admitting physician Attending Physician: Taj Ramos MD History of Present Illness 66-year-old male peritoneal dialysis patient whom I am asked to see for dialysis needs, hyperkalemia, hypoxia was admitted today for management of same after presenting with a week of worsening dyspnea and cough. His presenting potassium is 6.6 at 9 AM with blood sugar in the 60s, Creatinine 20, BNP greater than 4700 and with 3 L oxygen needed to maintain sats. In the ER, he had 5 units of IV insulin at 10 AM. He also had a gram of calcium gluconate with ECG showing widening QRS. he is anuric. On August 26, he underwent AV fistulogram with angioplasty. While the op report states that good flow was restored with this procedure, discharge diagnosis Is still malfunctioning AV fistula. 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 He was recently admitted here from August 19 to with symptomatic anemia requiring packed red cell transfusion. We did hemodialysis to get better control of his potassium and volume status but his AV fistula malfunctioned after 1 treatment. He followed up with vascular as an outpatient as below. He dialy[place] under the care [place] [facility] [place]; his OP rx is 5 x 2L exchanges over 10 hrs on the cycler and 3 x 2L exchanges by day. He is well documented as an outpatient to be routi joseph nonadherent with his treatments. History obtained today using iPad/hospital provided commercial lines manager. The patient tells me initially that he came off treatment this AM but then later states that he felt so horrible yesterday he did not do treatment. He tells me he has had 7 days of progressive dyspnea which abruptly worsened last evening with orthopnea, thick cough, sore throat. He acknowledges that his also has a respiratory infection. Denies fever. Denies nausea vomiting diarrhea constipation abdominal pain or any issues or pain with the exchanges for peritoneal dialysis. Endorses mild lower extremity anemia. States he had a bowel movement this morning and confirms that he is anuric. no hemoptysis; no reported sources of bleeding. no chest pain. He has not had any changes to his prescription and has not seen his outpatient dialysis team since hospital discharge last month. Allergies Allergy/AdvReac Type Severity Reaction Status Date / Time No Known Allergies Allergy Verified 09/11/22 09:01 Home Medications Medication Instructions Recorded Confirmed Type amlodipine 10 mg tablet 10 mg PO DAILY 05/15/19 09/11/22 History ergocalciferol (vitamin D2) 1,250 1,250 mcg PO WK 10/28/20 09/11/22 History mcg (50,000 unit) capsule (Vitamin D2) losartan 50 mg tablet (Cozaar) 50 mg PO BID 10/28/20 09/11/22 History allopurinol 100 mg tablet 100 mg PO DAILY 06/12/22 09/11/22 History carvedilol 6.25 mg tablet 6.25 mg PO BID 06/12/22 09/11/22 History clonidine 0.2 mg/24 hr weekly 0.2 mg transdermal WK 06/12/22 09/11/22 History transdermal patch metoprolol tartrate 25 mg tablet 25 mg PO BID 06/12/22 09/11/22 History calcitriol 0.5 mcg capsule 1.5 mcg PO DAILY 08/19/22 09/11/22 History cinacalcet 30 mg tablet (Sensipar) 30 mg PO DAILY 08/19/22 09/11/22 History epoetin beta, methoxy peg 200 200 mcg subcut MONTHLY 08/19/22 09/11/22 History mcg/0.3 mL injection syringe (Mircera) hydralazine 100 mg tablet 100 mg PO QID 08/19/22 09/11/22 History vit B,C-folic ac 800 mcg-zinc 12.5 1 tab PO DAILY 08/19/22 09/11/22 History mg-selen-D3 2,000 unit-vit E tablet (RenaPlex-D) pantoprazole 40 mg tablet,delayed 40 mg PO QAM 30 days #30 tabs 08/23/22 09/11/22 Rx release Patient History Medical History (Updated 09/11/22 @ 13:57 by Rita Munson MD, PhD) AV fistula Benign prostatic hyperplasia with urinary obstruction ESRD (end stage renal disease) on dialysis PD patient; follows with Dr. Florence in [place]; 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 Fluid overload Hypertension Kidney transplant candidate reason for colonoscopy to get on list Nephrolithiasis Peritoneal dialysis catheter in place Restless leg syndrome Surgical History H/O inguinal hernia repair History of colonoscopy History of cystoscopy History of thoracentesis History of tooth extraction Status post creation of arteriovenous fistula left arm Family History Other No family history of adverse response to anesthesia No significant family history Social History Smoking Status: Never smoker Second Hand Exposure: No; Do You Dip or Chew Tobacco: No; Tobacco Cessation Education Requested by Patient: No Hx Alcohol Use: No Hx Substance Use: No Preferred Language: Bahraini Communication Ability: Effective Communication Tools: IPad Power Bender Operator Required: Yes, Video and Voice Beliefs That Will Affect Care: None marital status: Current Living Situation: Spouse current occupational status: employed Other Information That Helps Us Care for You: No Feels Safe at Home: Yes Safety Concerns: Feels Safe At This Time Assistive Devices: None Review of Systems Review of Systems: All systems reviewed & are unremarkable except as noted in HPI & below Physical Exam Constitutional: well developed, well nourished and cooperative; no acute dis tress Eyes: EOM intact bilaterally ENMT: Ears: no external ear abnormality Nose: no external nose abnormality Mouth: + dry oral mucous membranes Neck: no nuchal rigidity Respiratory: normal respiratory effort, + labored breathing (slight), + cough (thick), able to speak in complete sentences and + tachypneic; expiratory phase not prolonged and no paradoxical thoraco-abdominal movemnt Auscultation: + diminished lung sounds Cardiovascular: Rate/Rhythm: regular rhythm and + tachycardic Extremities: + edema (trace) and + AV fistula (+ t/b) Gastrointestinal (Abdomen): Inspection/Auscultation: normal bowel sounds Percussion/Palpation: abdomen soft; abdomen nontender Musculoskeletal: Extremities: strength 5/5 throughout Skin: no rashes, warm and dry Neurologic: sim, fluent speech, + resting tremor and occasional myoclonic jerk Results & Data ([facility]) Vital Signs (Past 12 Hours) Vital Signs Temp Pulse Pulse Resp BP BP Pulse Ox 09/11/22 11:00 105 H 23 09/11/22 11:00 157/81 H 09/11/22 10:45 106 H 25 H 96 09/11/22 11:11 09/11/22 10:30 110 H 30 H 92 09/11/22 10:30 159/88 H 09/11/22 10:15 107 H 26 H 96 09/11/22 10:08 166/91 H 09/11/22 10:08 103 H 25 H 95 09/11/22 10:00 104 H 28 H 95 09/11/22 09:55 108 H 28 H 95 09/11/22 09:30 101 H 27 H 09/11/22 09:15 100 H 21 93 09/11/22 09:00 98 H 33 H 09/11/22 08:45 101 H 34 H 09/11/22 08:30 102 H 30 H 09/11/22 08:15 100 H 34 H 09/11/22 08:00 103 H 33 H 91 09/11/22 07:58 102 H 34 H 85 L 09/11/22 09:08 99 H 17 160/105 H 09/11/22 09:08 99 H 18 94 09/11/22 08:05 97 09/11/22 08:05 37.6 C H 103 H 19 186/103 H 97 09/11/22 07:59 102 H O2 Del Method O2 Flow Rate 09/11/22 11:00 09/11/22 11:00 09/11/22 10:45 Nasal Cannula 3 09/11/22 11:11 Nasal Cannula 3 09/11/22 10:30 Nasal Cannula 3 09/11/22 10:30 09/11/22 10:15 Nasal Cannula 3 09/11/22 10:08 09/11/22 10:08 Nasal Cannula 3 09/11/22 10:00 Nasal Cannula 3 09/11/22 09:55 Nasal Cannula 3 09/11/22 09:30 09/11/22 09:15 Nebulizer 09/11/22 09:00 09/11/22 08:45 09/11/22 08:30 09/11/22 08:15 09/11/22 08:00 09/11/22 07:58 09/11/22 09:08 Nasal Cannula 09/11/22 09:08 Nasal Cannula 3 09/11/22 08:05 Nebulizer 8 09/11/22 08:05 Nebulizer 8 09/11/22 07:59 Laboratory Results 09/11/22 08:52 09/11/22 08:[address] angio chest 1. Motion ompromised examination. 2. There is no evidence of pulmonary embolus in the main, lobar, or proximal segmental pulmonary arteries. Evaluation of the peripheral branches is degraded by motion artifact. 3. Cardiomegaly with evidence of congestive failure. 4. Bilateral irspace opacities likely represent pulmonary edema. Correlate clinically for evidence of a superimposed infectious/inflammatory pneumonitis. Radiographic follow-up to resolution is recommended. 5. Moderate pleural effusions with dependent consolidation. 6. Small volume perihepatic ascites. 7. A 1.1 cm right apical nodular opacity is similar to previous. A six-month follow-up chest CT is again recommended for reassessment. 8. Additional findings as above. Chest x-ray 1. Cardiomegaly with evidence of congestive failure. 2. Bilateral airspace opacities likely represent pulmonary edema. Correlate clinically for evidence of a superimposed infectious/inflammatory pneumonitis. Radiographic follow-up to resolution is recommended. 3. Small pleural effusions
[2022-09-11] MEDS ORDERED: PATIROMER CALCIUM SORBITEX 8.4 GM PACK PO STA (12:07)
[2022-09-11 14:40] LABS: C Reactive Protein 17.7 mg/dl (0-0.5)
[2022-09-11] MEDS: CHECK CLONIDINE PATCH PLACEMENT SCH (14:58)
[2022-09-11] MEDS ORDERED: METOPROLOL TARTRATE 1 MG/ML VIAL IV STA (15:01)
[2022-09-11] MEDS: DOXYCYCLINE HYCLATE 100 MG in DEXTROSE 5% 100 ML IV SCH (16:09)
--- NOTE | 2022-09-11 16:36 | Pharmacy Report ---
Pharmacy PK ABX Note - Date of Service September 11, 2022 - Assessment and Plan Assessment 66 year old M receiving Vancomycin + Cefepime + Doxycycline for treatment of possible pneumonia. * On peritoneal dialysis. Low grade fever. No white count. * MRSA swab pending. Plan Vancomycin * Loading dose: 1500 mg IV x 1 * Will dose by levels given PD. * Random level ordered for 09/12/22 Pharmacy will continue to follow and will adjust dose/frequency as necessary. Thank you. Pharmacy has transitioned to AUC monitoring for vancomycin. AUC/DEANA is the preferred PK/PD target and is associated with decreased risk of nephrotoxicity compared to traditional trough targets.
[2022-09-11] MEDS: hydrALAZINE TAB 50 MG TAB PO SCH ×2 (17:24→20:16)
[2022-09-11] MEDS ORDERED: guaiFENesin SUGAR FREE 200 MG/10 ML UDC PO PRN (20:06)
[2022-09-11] MEDS: COUGH DROP (SUGAR FREE) LOZ 24 LOZ/1 BOX BUCCAL PRN (20:15)
[2022-09-11] MEDS: METOPROLOL TARTRATE 25 MG TAB PO SCH (20:16)
[2022-09-11] MEDS: LOSARTAN POTASSIUM 50 MG TAB PO SCH (20:16)
[2022-09-11] MEDS ORDERED: carvediloL 6.25 MG TAB PO SCH (21:00)
[2022-09-11] MEDS ORDERED: CEFEPIME 1,000 MG in SYRINGE 0 ML IV SCH (21:00)
[2022-09-11 21:01] LABS: BUN Creatinine Ratio 5.6 (10-20); Creatinine Clr Calc Pharmacy 3.5 ml/min; Est GFR (African American) 2.3 ml/min; Potassium 5.9 mmol/L (3.5-5.1)
[2022-09-12] MEDS: DOXYCYCLINE HYCLATE 100 MG in DEXTROSE 5% 100 ML IV SCH ×2 (03:35→17:06)
[2022-09-12] MEDS: CHECK CLONIDINE PATCH PLACEMENT SCH ×3 (03:44→17:06)
--- NOTE | 2022-09-12 08:43 | Communication Note ---
Date of Service: September 12, 2022 Can use his fistula for dialysis
--- NOTE | 2022-09-12 08:50 | Electrocardiogram Report ---
Test Reason : Blood Pressure : / mmHG Vent. Rate : 103 BPM Atrial Rate : 103 BPM P-R Int : 182 ms QRS Dur : 114 ms QT Int : 360 ms P-R-T Axes : 048 -30 092 degrees QTc Int : 471 ms Sinus tachycardia Left axis deviation Inferior infarct (cited on or before 11-SEP-2022) Poor R wave progression, consider anterior VT vs. lead placement vs. LVH Abnormal ECG When compared with ECG of 19-AUG-2022 14:33, QRS duration has increased Confirmed by Prabhu Abrams ([id number]) on 09/12/2022 8:49:29 AM Referred By: REFERRED SELF Confirmed By:Juancho Abrams
[2022-09-12] MEDS ORDERED: ERGOCALCIFEROL 50,000 UNITS 1250 MCG CAP PO SCH (09:00)
--- NOTE | 2022-09-12 09:45 | Dialysis Progress Note ---
Date of Service September 12, 2022 Assessment & Plan Admission and Anticipated Discharge Date Admission Date: September 11, 2022 Subjective Assessment & Plan (1) Hyperkalemia: with ECG changes; had IV calcium and insulin -low K diet ordered -started standing high dose patiromer 16.8 gm daily -aggressive dialysis as below -maintain jordan worker until K consistently < 5.7 (2) Fluid overload: If still in hospital today will again do 10 x 2L exchanges over 15 hrs favoring 4.25% dextrose to 2.5% in 3 to 1 ratio (3) ESRD (end stage renal disease) on dialysis: peritoneal dialysis is not working for him any longer with total loss of his residual renal function.That is why we are seeing this very high K and fluid overload. I have been urging him to consider changing to hemodialysis but to date he has declined this. Did this again today using google Translate. I will talk with his regular Guest Services Lead in [place] as well as his Home PD nurse. -continue PD while in house -continue goals of care discussions while in house (5) Dialysis AV fistula malfunction: has been Cleared by Dr Viera for Use. Results & Data ([facility]) Vital Signs (Past 12 Hours) Vital Signs Temp Pulse Pulse Pulse Resp BP Pulse Ox 09/12/22 08:00 37.1 C 85 18 159/91 H 94 09/12/22 07:32 37 C 80 15 184/116 H 94 09/12/22 04:06 36.8 C 80 18 175/100 H 91 09/11/22 23:48 78 09/11/22 23:13 36.8 C 80 18 164/90 H 91 O2 Del Method 09/12/22 08:00 Room Air 09/12/22 07:32 Room Air 09/12/22 04:06 Room Air 09/11/22 23:48 09/11/22 23:13 Room Air
[2022-09-12] MEDS ORDERED: PATIROMER CALCIUM SORBITEX 8.4 GM PACK PO SCH ×2 (10:00→11:00)
[2022-09-12] MEDS ORDERED: CEFEPIME 1,000 MG in SYRINGE 0 ML IV SCH (10:00)
[2022-09-12] MEDS: CEFEPIME 1,000 MG in SYRINGE 0 ML IV SCH (10:42)
--- NOTE | 2022-09-12 11:17 | Consultation ---
Date of Consultation September 12, 2022 History of Present Illness Attending Physician: Taj Ramos MD History of Present Illness No consult is needed. This patient had an intervention 2 weeks prior to this for his stenosis in his fistula. There is a good thrill and bruit. The fistula may be used for dialysis. Allergies Allergy/AdvReac Type Severity Reaction Status Date / Time No Known Allergies Allergy Verified 09/11/22 09:01 Home Medications Medication Instructions Recorded Confirmed Type amlodipine 10 mg tablet 10 mg PO DAILY 05/15/19 09/11/22 History ergocalciferol (vitamin D2) 1,250 1,250 mcg PO WK 10/28/20 09/11/22 History mcg (50,000 unit) capsule (Vitamin D2) losartan 50 mg tablet (Cozaar) 50 mg PO BID 10/28/20 09/11/22 History allopurinol 100 mg tablet 100 mg PO DAILY 06/12/22 09/11/22 History carvedilol 6.25 mg tablet 6.25 mg PO BID 06/12/22 09/11/22 History clonidine 0.2 mg/24 hr weekly 0.2 mg transdermal WK 06/12/22 09/11/22 History transdermal patch metoprolol tartrate 25 mg tablet 25 mg PO BID 06/12/22 09/11/22 History calcitriol 0.5 mcg capsule 1.5 mcg PO DAILY 08/19/22 09/11/22 History cinacalcet 30 mg tablet (Sensipar) 30 mg PO DAILY 08/19/22 09/11/22 History epoetin beta, methoxy peg 200 200 mcg subcut MONTHLY 08/19/22 09/11/22 History mcg/0.3 mL injection syringe (Mircera) hydralazine 100 mg tablet 100 mg PO QID 08/19/22 09/11/22 History vit B,C-folic ac 800 mcg-zinc 12.5 1 tab PO DAILY 08/19/22 09/11/22 History mg-selen-D3 2,000 unit-vit E tablet (RenaPlex-D) pantoprazole 40 mg tablet,delayed 40 mg PO QAM 30 days #30 tabs 08/23/22 09/11/22 Rx release Patient History Medical History (Updated 09/11/22 @ 13:57 by Rita Munson MD, PhD) AV fistula Benign prostatic hyperplasia with urinary obstruction ESRD (end stage renal disease) on dialysis PD patient; follows with Dr. Florence in [place]; 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 Fluid overload Hypertension Kidney transplant candidate reason for colonoscopy to get on list Nephrolithiasis Peritoneal dialysis catheter in place Restless leg syndrome Surgical History H/O inguinal hernia repair History of colonoscopy History of cystoscopy History of thoracentesis History of tooth extraction Status post creation of arteriovenous fistula left arm Family History Other No family history of adverse response to anesthesia No significant family history Social History Smoking Status: Never smoker Second Hand Exposure: No; Do You Dip or Chew Tobacco: No; Tobacco Cessation Education Requested by Patient: No Hx Alcohol Use: No Hx Substance Use: No Preferred Language: Comoran Communication Ability: Effective Communication Tools: IPad Shaft Repairer Required: Yes, Video and Voice Beliefs That Will Affect Care: None marital status: Current Living Situation: Spouse current occupational status: employed Other Information That Helps Us Care for You: No Feels Safe at Home: Yes Safety Concerns: Feels Safe At This Time Assistive Devices: None Results & Data ([facility]) Vital Signs (Past 12 Hours) Vital Signs Temp Pulse Pulse Pulse Resp BP Pulse Ox 09/12/22 08:00 37.1 C 85 18 159/91 H 94 09/12/22 07:32 37 C 80 15 184/116 H 94 09/12/22 04:06 36.8 C 80 18 175/100 H 91 09/11/22 23:48 78 O2 Del Method 09/12/22 08:00 Room Air 09/12/22 07:32 Room Air 09/12/22 04:06 Room Air 09/11/22 23:48
[2022-09-12 11:21] LABS: Hemoglobin 9.1 g/dl (14.0-18.0); Mean Corpuscular Hemoglobin 26.3 pg (25.0-34.0); Mean Corpuscular Hgb Conc 31.4 g/dL (32.0-36.0); Mean Corpuscular Volume 83.8 fL (80.0-100.0); Platelet Count 336 K/uL (130-400); RDW Coefficient of Variation 18.2 % (11.5-14.5); RDW Standard Deviation 54.8 fL (36.4-46.3); Red Blood Count 3.46 M/uL (4.70-6.10); White Blood Count 7.42 K/ul (4.8-10.8)
[2022-09-12] MEDS: amLODIPine BESYLATE 5 MG TAB PO SCH (11:33)
[2022-09-12] MEDS: allopurinoL 100 MG TAB PO SCH (11:33)
[2022-09-12] MEDS: CINACALCET HCL 30 MG TAB PO SCH (11:34)
[2022-09-12] MEDS: CALCITRIOL 0.25 MCG CAPSULE PO SCH (11:34)
[2022-09-12] MEDS: hydrALAZINE TAB 50 MG TAB PO SCH ×4 (11:35→20:49)
[2022-09-12] MEDS: LOSARTAN POTASSIUM 50 MG TAB PO SCH ×2 (11:35→20:42)
[2022-09-12] MEDS: METOPROLOL TARTRATE 25 MG TAB PO SCH ×2 (11:36→20:42)
[2022-09-12] MEDS: NEPHROCAPS PO SCH (11:36)
[2022-09-12] MEDS: PANTOprazole 40 MG TAB PO SCH (11:36)
[2022-09-12 12:54] LABS: Calcium 8.6 mg/dl (8.5-10.1); Magnesium 2.1 mg/dl (1.7-2.4)
[2022-09-12 13:07] LABS: BUN Creatinine Ratio 5.9 (10-20); Creatinine Clr Calc Pharmacy 4.1 ml/min; Est GFR (African American) 2.7 ml/min; Est GFR (Non-African American) 2.4 ml/min; Phosphorus 6.5 mg/dl (2.5-4.9)
[2022-09-12] MEDS: PATIROMER CALCIUM SORBITEX 8.4 GM PACK PO SCH (13:13)
--- NOTE | 2022-09-12 15:03 | Hospitalist Progress Note ---
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 Vascular and Nephro consult. E-lyte monitoring. Consider goals of care conversation with palliative during this admission. Peritoneal dialysis catheter in situ: Dialysis AV Fistula malfunction: Kidney Transplant Candidate: Hyperkalemia: -Has been on peritoneal dialysis 4 times a day -He takes care of dialysis by himself -He does have a fistula on the left antecubital fossa; malfunction last admission -Vascular consult to discuss appropriateness of use -Nephro consult; long tx with numerous cycles to occur today 09/11 -Nephro ordered Valtessa; pt Anuric at baseline -K+ 6.6; ca+ Gluconate and Insulin 5 units IV given in ED; Q6 BMP's -A little bit better with overnight peritoneal dialysis -Potassium is 5.0 and BUN and creatinine is minimally improved -Patient refused to have any hemodialysis-the fish and wildlife technician did discuss with his fish and wildlife technician in [place] -We will continue peritoneal dialysis here in this hospital and when the patient is back to his baseline with the symptoms he will be discharged -He was strongly advised to keep in touch with his fish and wildlife technician for hemodialysis down the line Cough: -CXR: Cardiomegaly with pattern of CHF, small pleural effusions -Sputum and MRSA cx pending -Vanco given in ED; will continue Cefipime + Doxy -blood cultures ordered -Lactate ordered -Cough is persisting, MRSA screen is negative. Continue with cefepime and Doxy -We will give cough medicine -Likely discharge on cefdinir and Doxy HTN: -Takes Amlodipine, Clonidine patch, Losartan, metoprolol, Hydralazine; Continue -SBP 173/105: Metoprolol 5 mg IV admin Disposition: PCP: Dr. Smith Code Status: Full Code VTE Prophylaxis: Heparin SQ The patient is refusing hemodialysis which will improve his symptoms and also significant lab abnormality This was conveyed to his fish and wildlife technician in [place] Admission and Anticipated Discharge Date Admission Date: September 11, 2022 Subjective 09/12/2022 The patient was seen and examined in telemetry unit He has been feeling better but he still has significant cough without any phlegm Minimum wheezing at rest but no significant shortness of breath Has been on peritoneal dialysis since last night Denies to have hemodialysis Communicated through the telephone lacie Review of Systems Review of Systems: All systems reviewed and are unremarkable except as noted below Physical Exam Physical Exam: Sitting at the edge of the bed without any acute distress Constitutional: well developed, well nourished, + ill appearing and average body habitus Eyes: PERRL, conjunctivae normal, anicteric sclerae ENMT: external ear and nose normal, oropharynx normal Neck: trachea midline, no thyromegaly Respiratory: + respiratory distress (Mild shortness of breath at rest); no labored breathing Auscultation: + diminished lung sounds and + wheezes Cardiovascular: Rate/Rhythm: regular rate and regular rhythm; not tachycardic Heart Sounds: normal S1 and normal S2; no murmur Extremities: + edema (Trace to 1+ edema bilaterally) Gastrointestinal (Abdomen): Inspection/Auscultation: normal bowel sounds; abdomen not distended Percussion/Palpation: abdomen soft; abdomen nontender Musculoskeletal: No acute arthritis involving any joint Neurologic: Alert, awake and oriented x3. No focal sensory and/or motor deficit appreciated Psychiatric: A+Ox3, euthymic affect Lymphatic: no cervical or axillary lymphadenopathy Results & Data Results & Data ([facility]) Vital Signs (Past 12 Hours) Vital Signs Temp Pulse Pulse Pulse Resp BP Pulse Ox 09/12/22 12:53 09/12/22 08:48 75 09/12/22 10:35 36.7 C 85 18 09/12/22 11:30 36.7 C 84 16 178/101 H 95 09/12/22 08:00 37.1 C 85 18 159/91 H 94 09/12/22 07:32 37 C 80 15 184/116 H 94 09/12/22 04:06 36.8 C 80 18 175/100 H 91 O2 Del Method 09/12/22 12:53 Room Air 09/12/22 08:48 09/12/22 10:35 09/12/22 11:30 Room Air 09/12/22 08:00 Room Air 09/12/22 07:32 Room Air 09/12/22 04:06 Room Air Laboratory Results Short CBC 09/12/22 Range/Units 10:48 WBC 7.42 (4.8-10.8) K/ul Hgb 9.1 L (14.0-18.0) g/dl Hct 29.0 L (42.0-52.0) % Plt Count 336 (130-400) K/uL BMP 09/11/22 09/12/22 20:26 10:48 Sodium 136 138 Potassium 5.9 H 5.0 Chloride 95 L 97 L Carbon Dioxide 21 23 BUN 117 H 107 H Creatinine 20.78 H* D 17.99 H* D Glucose 232 H 75 Calcium 9.0 8.6 Medications Administered Current Inpatient Medications Acetaminophen (Acetaminophen 325 Mg Tab) 650 mg PO Q4H PRN PRN Reason: Pain or Fever Stop: 10/11/22 10:36 Al Hydrox/Mg Hydrox/Simethicone (Aluminum/Magnesium Susp 30 Ml Udc) 15 ml PO Q4H PRN PRN Reason: Dyspepsia Stop: 10/11/22 10:36 Allopurinol (Allopurinol 100 Mg Tab) 100 mg PO DAILY [facility] Stop: 10/12/22 08:59 Last Admin: 09/12/22 11:33 Dose: 100 mg Amlodipine Besylate (Amlodipine Besylate 5 Mg Tab) 10 mg PO DAILY [facility] Stop: 10/12/22 08:59 Last Admin: 09/12/22 11:33 Dose: 10 mg Calcitriol (Calcitriol 0.25 Mcg Capsule) 1.5 mcg PO DAILY [facility] Stop: 10/12/22 08:59 Last Admin: 09/12/22 11:34 Dose: 1.5 mcg Cinacalcet (Cinacalcet Hcl 30 Mg Tab) 30 mg PO DAILY [facility] Stop: 10/12/22 08:59 Last Admin: 09/12/22 11:34 Dose: 30 mg Clonidine HCl (Clonidine Hcl 0.2 Mg/24 Hr Transderm Sys) 1 patch TD Chery@1600 [facility] Stop: 10/11/22 15:59 Last Admin: 09/11/22 17:24 Dose: 1 patch Ergocalciferol (Ergocalciferol 50,000 Units 1250 Mcg Cap) 50,000 units PO Mo@0900 [facility] Stop: 10/12/22 08:59 Last Admin: 09/12/22 11:34 Dose: 50,000 units Guaifenesin (Guaifenesin Sugar Free 200 Mg/10 Ml Udc) 200 mg PO Q6H PRN PRN Reason: Cough Stop: 10/11/22 20:05 Last Admin: 09/12/22 12:06 Dose: 200 mg Hydralazine HCl (Hydralazine Tab 50 Mg Tab) 100 mg PO QID [facility] Stop: 10/11/22 16:59 Last Admin: 09/12/22 12:04 Dose: 100 mg Doxycycline Hyclate 100 mg/ (Dextrose) 110 mls @ 50 mls/hr IV Q12H [facility] Stop: 09/18/22 15:59 Last Infusion: 09/12/22 05:39 Dose: Infused Cefepime HCl 1,000 mg/ Syringe 10 mls @ 5 mls/min IV Q24H [facility]; Protocol Stop: 09/19/22 09:59 Last Admin: 09/12/22 10:42 Dose: 5 mls/min Losartan Potassium (Losartan Potassium 50 Mg Tab) 50 mg PO BID [facility] Stop: 10/11/22 20:59 Last Admin: 09/12/22 11:35 Dose: 50 mg Magnesium Hydroxide (Magnesium Hydroxide Susp 30 Ml Udc) 30 ml PO Q12H PRN PRN Reason: Constipation Stop: 10/11/22 10:36 Menthol (Cough Drop (Sugar Free) Jorge 24 Jorge/1 Box) 1 jorge BUCCAL BID PRN PRN Reason: Sore Throat Stop: 10/11/22 20:05 Last Admin: 09/11/22 20:15 Dose: 1 jorge Metoprolol Tartrate (Metoprolol Tartrate 25 Mg Tab) 25 mg PO BID [facility] Stop: 10/11/22 20:59 Last Admin: 09/12/22 11:36 Dose: 25 mg Miscellaneous (Check Clonidine Patch Placement) 1 each N/A QS [facility] Stop: 10/11/22 15:59 Last Admin: 09/12/22 10:43 Dose: 1 each Miscellaneous (Remove Clonidine Patch) 1 each N/A CQWK [facility] Stop: 10/11/22 13:44 Last Admin: 09/11/22 14:56 Dose: Not Given Ondansetron HCl (Ondansetron Inj 2 Mg/Ml 2 Ml Vial) 4 mg IV Q6H PRN PRN Reason: Nausea Stop: 10/11/22 10:36 Pantoprazole Sodium (Pantoprazole 40 Mg Tab) 40 mg PO QAM [facility] Stop: 10/12/22 08:59 Last Admin: 09/12/22 11:36 Dose: 40 mg Patiromer (Patiromer Calcium Sorbitex 8.4 Gm Pack) 16.8 gm PO DAILY@1100 [facility] Stop: 10/12/22 10:59 Last Admin: 09/12/22 13:13 Dose: 16.8 gm Polyethylene Glycol (Polyethylene (Miralax) 17 Gm Pack) 17 gm PO DAILY PRN PRN Reason: Constipation Stop: 10/11/22 10:36 Vitamin B Complex/Folic Acid (Nephrocaps) 1 cap PO DAILY [facility] Stop: 10/12/22 08:59 Last Admin: 09/12/22 11:36 Dose: 1 cap
[2022-09-12] MEDS: ACETAMINOPHEN 325 MG TAB PO PRN (17:17)
[2022-09-12] MEDS: COUGH DROP (SUGAR FREE) LOZ 24 LOZ/1 BOX BUCCAL PRN (19:31)
[2022-09-12] MEDS: BENZONATATE 100 MG CAPSULE PO SCH (20:41)
[2022-09-12] MEDS: guaiFENesin 600 MG TABCR PO SCH (20:49)
[2022-09-12] MEDS ORDERED: SODIUM CHLORIDE 0.9% 250 ML IV SCH (23:30)
[2022-09-13] MEDS: CHECK CLONIDINE PATCH PLACEMENT SCH ×2 (00:22→09:35)
[2022-09-13] MEDS: DOXYCYCLINE HYCLATE 100 MG in DEXTROSE 5% 100 ML IV SCH (04:16)
[2022-09-13] MEDS: CINACALCET HCL 30 MG TAB PO SCH (09:40)
[2022-09-13] MEDS: CALCITRIOL 0.25 MCG CAPSULE PO SCH (09:40)
[2022-09-13] MEDS: amLODIPine BESYLATE 5 MG TAB PO SCH (09:40)
[2022-09-13] MEDS: BENZONATATE 100 MG CAPSULE PO SCH (09:40)
[2022-09-13] MEDS: allopurinoL 100 MG TAB PO SCH (09:40)
[2022-09-13] MEDS: guaiFENesin 600 MG TABCR PO SCH (09:40)
[2022-09-13] MEDS: ACETAMINOPHEN 325 MG TAB PO PRN (09:41)
[2022-09-13] MEDS: hydrALAZINE TAB 50 MG TAB PO SCH ×2 (09:41→12:47)
[2022-09-13] MEDS: NEPHROCAPS PO SCH (09:41)
[2022-09-13] MEDS: PANTOprazole 40 MG TAB PO SCH (09:41)
[2022-09-13] MEDS: LOSARTAN POTASSIUM 50 MG TAB PO SCH (09:41)
[2022-09-13] MEDS: METOPROLOL TARTRATE 25 MG TAB PO SCH (09:41)
[2022-09-13] MEDS: CEFEPIME 1,000 MG in SYRINGE 0 ML IV SCH (09:49)
--- NOTE | 2022-09-13 09:57 | Dialysis Progress Note ---
Date of Service September 13, 2022 Assessment & Plan Admission and Anticipated Discharge Date Admission Date: September 11, 2022 Subjective Assessment & Plan Admission and Anticipated Discharge Date Admission Date: September 11, 2022 Subjective Assessment & Plan (1) Hyperkalemia: Now normal. Diet and Dialysis non adherence at home + Loss of residual renal function. will be a recurring problem though (2) Fluid overload: If still in hospital today will again do 10 x 2L exchanges over 15 hrs favoring 4.25% dextrose to 2.5% in 3 to 1 ratio (3) ESRD (end stage renal disease) on dialysis: peritoneal dialysis is not working for him any longer with total loss of his residual renal function.That is why we are seeing this very high K and fluid overload. I have been urging him to consider changing to hemodialysis but to date he has declined this. Spoke with his regular clerical warehouse worker in [place] yesterday also. Continue same at home. (5) Dialysis AV fistula malfunction: has been Cleared by Dr Viera for Use. S---Seen for PD. 2100 ml UF done overnight. NO issues. Feels fine and wants to go home. Exam. AAo x3, chest Clear. CVS--RRR. No murmur Abd--soft nontender. exit site is fine Ext--Trace edema. Labs better k is normal. Results & Data ([facility]) Vital Signs (Past 12 Hours) Vital Signs Temp Pulse Pulse Pulse Resp BP Pulse Ox 09/13/22 09:40 36.3 C L 80 18 09/13/22 07:37 36.3 C L 80 18 154/97 H 97 09/13/22 02:39 36.4 C L 67 17 126/72 93 09/12/22 23:00 71 09/13/22 00:15 36.7 C 73 18 122/75 96 09/13/22 00:13 89 129/79 09/12/22 22:40 36.3 C L 91 H 18 114/73 91 O2 Del Method 09/13/22 09:40 09/13/22 07:37 Room Air 09/13/22 02:39 Room Air 09/12/22 23:00 09/13/22 00:15 Room Air 09/13/22 00:13 09/12/22 22:40 Room Air
--- NOTE | 2022-09-13 10:47 | Electrocardiogram Report ---
Test Reason : Blood Pressure : / mmHG Vent. Rate : 068 BPM Atrial Rate : 068 BPM P-R Int : 190 ms QRS Dur : 086 ms QT Int : 452 ms P-R-T Axes : 019 -07 170 degrees QTc Int : 480 ms Normal sinus rhythm Anterior infarct (cited on or before 11-SEP-2022) T wave abnormality, consider lateral ischemia Abnormal ECG When compared with ECG of 11-SEP-2022 07:59, Vent. rate has decreased BY 35 BPM Confirmed by Prabhu Abrams ([id number]) on 09/13/2022 10:47:02 AM Referred By: REFERRED SELF Confirmed By:Juancho Abrams
[2022-09-13] MEDS: PATIROMER CALCIUM SORBITEX 8.4 GM PACK PO SCH (11:59)
--- NOTE | 2022-09-13 12:24 | Hospitalist Progress Note ---
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 Vascular and Nephro consult. E-lyte monitoring. Consider goals of care conversation with palliative during this admission. Peritoneal dialysis catheter in situ: Dialysis AV Fistula malfunction: Kidney Transplant Candidate: Hyperkalemia: -Has been on peritoneal dialysis 4 times a day -He takes care of dialysis by himself -He does have a fistula on the left antecubital fossa; malfunction last admission -Vascular consult to discuss appropriateness of use -Nephro consult; long tx with numerous cycles to occur today 09/11 -Nephro ordered Valtessa; pt Anuric at baseline -K+ 6.6; ca+ Gluconate and Insulin 5 units IV given in ED; Q6 BMP's -A little bit better with overnight peritoneal dialysis -Potassium is 5.0 and BUN and creatinine is minimally improved -Patient refused to have any hemodialysis-the correctional supply supervisor did discuss with his correctional supply supervisor in [place] -We will continue peritoneal dialysis here in this hospital and when the patient is back to his baseline with the symptoms he will be discharged -He was strongly advised to keep in touch with his correctional supply supervisor for hemodialysis down the line -He will not go for hemodialysis and decided to leave the hospital today -He was strongly advised to see his correctional supply supervisor in [place] as soon as possible and continue peritoneal dialysis Cough: -CXR: Cardiomegaly with pattern of CHF, small pleural effusions -Sputum and MRSA cx pending -Vanco given in ED; will continue Cefipime + Doxy -blood cultures ordered -Lactate ordered -Cough is persisting, MRSA screen is negative. Continue with cefepime and Doxy -We will give cough medicine -No pneumonia and/or bronchitis and the cough is due to pulmonary edema secondary to end-stage renal disease HTN: -Takes Amlodipine, Clonidine patch, Losartan, metoprolol, Hydralazine; Continue -SBP 173/105: Metoprolol 5 mg IV admin Disposition: PCP: Dr. Smith Code Status: Full Code VTE Prophylaxis: Heparin SQ The patient is refusing hemodialysis which will improve his symptoms and also significant lab abnormality This was conveyed to his correctional supply supervisor in [place] Remains noncompliant and refused hemodialysis and the patient was discharged home this afternoon Admission and Anticipated Discharge Date Admission Date: September 11, 2022 Subjective 09/12/2022 The patient was seen and examined in telemetry unit He has been feeling better but he still has significant cough without any phlegm Minimum wheezing at rest but no significant shortness of breath Has been on peritoneal dialysis since last night Denies to have hemodialysis Communicated through the telephone lacie 09/13/2022 The patient was seen and examined in telemetry unit He complains to have cough which is secondary to pulmonary edema He did not rest any longer in the hospital and continue peritoneal dialysis He refused hemodialysis Review of Systems Review of Systems: All systems reviewed and are unremarkable except as noted below Physical Exam Physical Exam: Sitting at the edge of the bed without any acute distress Constitutional: well developed, well nourished, + ill appearing and average b alexia habitus Eyes: PERRL, conjunctivae normal, anicteric sclerae ENMT: external ear and nose normal, oropharynx normal Neck: trachea midline, no thyromegaly Respiratory: + respiratory distress (Mild shortness of breath at rest); no labored breathing Auscultation: + diminished lung sounds and + wheezes Cardiovascular: Rate/Rhythm: regular rate and regular rhythm; not tachycardic Heart Sounds: normal S1 and normal S2; no murmur Extremities: + edema (Trace to 1+ edema bilaterally) Gastrointestinal (Abdomen): Inspection/Auscultation: normal bowel sounds; abdomen not distended Percussion/Palpation: abdomen soft; abdomen nontender Musculoskeletal: No acute arthritis involving any joint Neurologic: Alert, awake and oriented x3. No focal sensory and/or motor deficit appreciated Psychiatric: A+Ox3, euthymic affect Lymphatic: no cervical or axillary lymphadenopathy Results & Data Results & Data ([facility]) Vital Signs (Past 12 Hours) Vital Signs Temp Pulse Pulse Resp BP Pulse Ox O2 Del Method 09/13/22 11:38 36.4 C L 66 20 148/87 H 92 Room Air 09/13/22 07:00 63 09/13/22 10:43 Room Air 09/13/22 09:40 36.3 C L 80 18 09/13/22 07:37 36.3 C L 80 18 154/97 H 97 Room Air 09/13/22 02:39 36.4 C L 67 17 126/72 93 Room Air Laboratory Results [facility] 09/12/22 10:48 Sodium 138 Potassium 5.0 Chloride 97 L Carbon Dioxide 23 BUN 107 H Creatinine 17.99 H* D Glucose 75 Calcium 8.6 Medications Administered Current Inpatient Medications Acetaminophen (Acetaminophen 325 Mg Tab) 650 mg PO Q4H PRN PRN Reason: Pain or Fever Stop: 10/11/22 10:36 Last Admin: 09/13/22 09:41 Dose: 650 mg Al Hydrox/Mg Hydrox/Simethicone (Aluminum/Magnesium Susp 30 Ml Udc) 15 ml PO Q4H PRN PRN Reason: Dyspepsia Stop: 10/11/22 10:36 Allopurinol (Allopurinol 100 Mg Tab) [address] [facility] Stop: 10/12/22 08:59 Last Admin: 09/13/22 09:40 Dose: 100 mg Amlodipine Besylate (Amlodipine Besylate 5 Mg Tab) 10 mg PO DAILY [facility] Stop: 10/12/22 08:59 Last Admin: 09/13/22 09:40 Dose: 10 mg Benzonatate (Benzonatate 100 Mg Capsule) 100 mg PO TID [facility] Stop: 10/12/22 20:59 Last Admin: 09/13/22 09:40 Dose: 100 mg Calcitriol (Calcitriol 0.25 Mcg Capsule) 1.5 mcg PO DAILY [facility] Stop: 10/12/22 08:59 Last Admin: 09/13/22 09:40 Dose: 1.5 mcg Cinacalcet (Cinacalcet Hcl 30 Mg Tab) 30 mg PO DAILY [facility] Stop: 10/12/22 08:59 Last Admin: 09/13/22 09:40 Dose: 30 mg Clonidine HCl (Clonidine Hcl 0.2 Mg/24 Hr Transderm Sys) 1 patch TD Chery@1600 [facility] Stop: 10/11/22 15:59 Last Admin: 09/11/22 17:24 Dose: 1 patch Ergocalciferol (Ergocalciferol 50,000 Units 1250 Mcg Cap) 50,000 units PO Mo@0900 [facility] Stop: 10/12/22 08:59 Last Admin: 09/12/22 11:34 Dose: 50,000 units Guaifenesin (Guaifenesin 600 Mg Tabcr) 1,[address] [facility] Stop: 10/12/22 20:59 Last Admin: 09/13/22 09:40 Dose: 1,200 mg Hydralazine HCl (Hydralazine Tab 50 Mg Tab) [address] [facility] Stop: 10/11/22 16:59 Last Admin: 09/13/22 09:41 Dose: 100 mg Doxycycline Hyclate 100 mg/ (Dextrose) 110 mls @ 50 mls/hr IV Q12H [facility] Stop: 09/18/22 15:59 Last Infusion: 09/13/22 06:34 Dose: Infused Cefepime HCl 1,000 mg/ Syringe 10 mls @ 5 mls/min IV Q24H [facility]; Protocol Stop: 09/19/22 09:59 Last Admin: 09/13/22 09:49 Dose: 5 mls/min Losartan Potassium (Losartan Potassium 50 Mg Tab) [address] [facility] Stop: 10/11/22 20:59 Last Admin: 09/13/22 09:41 Dose: 50 mg Magnesium Hydroxide (Magnesium Hydroxide Susp 30 Ml Udc) 30 ml PO Q12H PRN PRN Reason: Constipation Stop: 10/11/22 10:36 Menthol (Cough Drop (Sugar Free) Marcos 24 Marcos/1 Box) 1 marcos BUCCAL BID PRN PRN Reason: Sore Throat Stop: 10/11/22 20:05 Last Admin: 09/12/22 19:31 Dose: 1 marcos Metoprolol Tartrate (Metoprolol Tartrate 25 Mg Tab) [address] [facility] Stop: 10/11/22 20:59 Last Admin: 09/13/22 09:41 Dose: 25 mg Miscellaneous (Check Clonidine Patch Placement) 1 each N/A QS [facility] Stop: 10/11/22 15:59 Last Admin: 09/13/22 09:35 Dose: 1 each Miscellaneous (Remove Clonidine Patch) 1 each N/A CQWK [facility] Stop: 10/11/22 13:44 Last Admin: 09/11/22 14:56 Dose: Not Given Ondansetron HCl (Ondansetron Inj 2 Mg/Ml 2 Ml Vial) 4 mg IV Q6H PRN PRN Reason: Nausea Stop: 10/11/22 10:36 Pantoprazole Sodium (Pantoprazole 40 Mg Tab) [address] [facility] Stop: 10/12/22 08:59 Last Admin: 09/13/22 09:41 Dose: 40 mg Patiromer (Patiromer Calcium Sorbitex 8.4 Gm Pack) 16.8 gm PO DAILY@1100 [facility] Stop: 10/12/22 10:59 Last Admin: 09/13/22 11:59 Dose: 16.8 gm Polyethylene Glycol (Polyethylene (Miralax) 17 Gm Pack) 17 gm PO DAILY PRN PRN Reason: Constipation Stop: 10/11/22 10:36 Vitamin B Complex/Folic Acid (Nephrocaps) [address] [facility] Stop: 10/12/22 08:59 Last Admin: 09/13/22 09:41 Dose: 1 cap
--- NOTE | 2022-09-13 13:59 | Electrocardiogram Report ---
Test Reason : Blood Pressure : / mmHG Vent. Rate : 071 BPM Atrial Rate : 071 BPM P-R Int : 194 ms QRS Dur : 094 ms QT Int : 450 ms P-R-T Axes : 083 102 255 degrees QTc Int : 489 ms Sinus rhythm with Premature atrial complexes Rightward axis Poor R wave progression, consider anterior [place] vs. lead placement vs. LVH Nonspecific T wave abnormality Prolonged QT Abnormal ECG When compared with ECG of 12-SEP-2022 23:56, Premature atrial complexes are now Present Criteria for Inferior infarct are no longer Present Non-specific change in ST segment in Anterior leads T wave inversion no longer evident in Lateral leads Confirmed by Prabhu Abrams ([id number]) on 09/13/2022 1:59:00 PM Referred By: REFERRED SELF Confirmed By:Juancho Abrams
--- NOTE | 2022-09-14 15:41 | Discharge Summary ---
Date of Service September 13, 2022 Admission HPI Per Admitting Provider Mr. Salinas is a 66 year old male that presented to the [facility] ED with increased SOB and BL LE swelling over the past 2-3 days. He was recently admitted from 08/19-08/23 with similar symptoms, including sympatomatic anemia s/p PRBC transfusion. In the ED was found to be hyperkalemic 6.6, creatinine 19.61. Last admission, on 08/26 he underwent AV fistulogram with angioplasty. He was accessed for HD by route of his fistula , but had malfunction during procedure. BNP > 4700 and is having hypoxia, now on 3LNC. Does not wear supplemental O2 at home. He follows with Dr. Florence in [place] with his dialysis. He reports compliance with his treatments and claims to perform 2 manual exchanges daily with 5 total cycles. [employer] ipad utilized in the room with Racquel #[id number]. He reports losing his appetite over the past 2 days, but claims to be compliant with treatment and medication. Reports thick blood tinged sputum over past 3 days. Nephrology consult placed. Discussed with Dr. Maranda Munson who plans to perform a long exchange this afternoon with multiple cycles overnight. Confirmed code status to be full code and that his daughter Sydney is his decision maker: [phone]. Patient will be admitted for further evaluation and management. Please see A/P for further details. Admission Exam Per Admitting Provider Physical Exam: Neuro: AAOx4, PERRLA, no aphagia, memory changes, CNII-XII grossly intact HEENT: head normocephalic, moist mucus membranes CV: S1/S2, (-) M/G/R, trace BL LE edema, cap refill < 3 seconds Resp: Lungs CTA in all valle. On 3LNC GI: Abdomen S/NT/ND, Ax4 bowel sounds, (-) CVA tenderness Musculoskeletal: 5/5 B/L UE strength, 5/5 B/L LE strength. No gait disturbance Skin: (-) rashes , (-) erythema. Psych: euthymic mood Principal Diagnosis Hyperkalemia , shortness of breath with fluid overload ,end-stage renal disease on peritoneal dialysis, noncompliance, hypertension Discharge Exam Sitting at the edge of the bed without any acute distress Constitutional well developed, well nourished, + ill appearing and average body habitus Eyes PERRL, conjunctivae normal, anicteric sclerae ENMT external ear and nose normal, oropharynx normal Neck trachea midline, no thyromegaly Respiratory + respiratory distress (Mild shortness of breath at rest); no labored breathing Auscultation: + diminished lung sounds and + wheezes Cardiovascular Rate/Rhythm: regular rate and regular rhythm; not tachycardic Heart Sounds: normal S1 and normal S2; no murmur Extremities: + edema (Trace to 1+ edema bilaterally) Gastrointestinal (Abdomen) Inspection/Auscultation: normal bowel sounds; abdomen not distended Percussion/Palpation: abdomen soft; abdomen nontender Psychiatric A+Ox3, euthymic affect Lymphatic no cervical or axillary lymphadenopathy Discharge Data Allergies Allergy/AdvReac Type Severity Reaction Status Date / Time No Known Allergies Allergy Verified 09/11/22 09:01 Consultations 09/11/22 10:17 ED Decision to Admit Stat 09/11/22 10:37 Consult Nephrology Routine 09/12/22 08:00 Consult Vascular Surgery Routine Ordered Studies 09/11/22 08:15 CT angio chest PE protocol Stat Hospital Course (1) Peritoneal dialysis catheter in situ: (2) Dialysis AV fistula malfunction: (3) Kidney transplant candidate: (4) Hyperkalemia: (5) Symptomatic anemia: (6) Hypertension: (7) SOB (shortness of breath): Plan Medically 66 y/o recent admission 08/19-08/23 with 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 Vascular and Nephro consult. E-lyte monitoring. Consider goals of care conversation with palliative during this admission. Peritoneal dialysis catheter in situ: Dialysis AV Fistula malfunction: Kidney Transplant Candidate: Hyperkalemia: -Has been on peritoneal dialysis 4 times a day -He takes care of dialysis by himself -He does have a fistula on the left antecubital fossa; malfunction last admission -Vascular consult to discuss appropriateness of use -Nephro consult; long tx with numerous cycles to occur today 09/11 -Nephro ordered Valtessa; pt Anuric at baseline -K+ 6.6; ca+ Gluconate and Insulin 5 units IV given in ED; Q6 BMP's -A little bit better with overnight peritoneal dialysis -Potassium is 5.0 and BUN and creatinine is minimally improved -Patient refused to have any hemodialysis-the chief station engineer did discuss with his chief station engineer in [place] -We will continue peritoneal dialysis here in this hospital and when the patient is back to his baseline with the symptoms he will be discharged -He was strongly advised to keep in touch with his chief station engineer for hemodialysis down the line -He will not go for hemodialysis and decided to leave the hospital today -He was strongly advised to see his chief station engineer in [place] as soon as possible and continue peritoneal dialysis Cough: -CXR: Cardiomegaly with pattern of CHF, small pleural effusions -Sputum and MRSA cx pending -Vanco given in ED; will continue Cefipime + Doxy -blood cultures ordered -Lactate ordered -Cough is persisting, MRSA screen is negative. Continue with cefepime and Doxy -We will give cough medicine -No pneumonia and/or bronchitis and the cough is due to pulmonary edema secondary to end-stage renal disease HTN: -Takes Amlodipine, Clonidine patch, Losartan, metoprolol, Hydralazine; Continue -SBP 173/105: Metoprolol 5 mg IV admin Disposition: PCP: Dr. Smith Code Status: Full Code VTE Prophylaxis: Heparin SQ The patient is refusing hemodialysis which will improve his symptoms and also significant lab abnormality This was conveyed to his chief station engineer in [place] Remains noncompliant and refused hemodialysis and the patient was discharged home this afternoon Total Time Total Time Spent Total Time Spent (In Minutes): 35 minutes Discharge Plan Discharge Items Patient Disposition: Home - Self-Care Reason For Visit: HYPOXIA Discharge Diagnosis: Hyperkalemia , shortness of breath with fluid overload ,end-stage renal disease on peritoneal dialysis, noncompliance, hypertension Condition on Discharge: Fair Activity: Resume your previous activity Non-emergency contact: Primary Care Provider Call non-emergency contact if: you have any medication questions and your symptoms worsen Follow-up/Referrals: Cisco Starkey MD [Outside Practitioners] - (Date & Time 09/19/2022 9:00 AM Provider Cisco Starkey MD [facility] ) Diet: Dialysis Renal Fluids: 1500ml (6 cups) Addtl Attending Provider Instructions: Please take precautions to avoid falls Strongly advised to see your chief station engineer in [place] as soon as possible Strongly advised to have peritoneal dialysis for better management of fluid Please keep appointments with your healthcare providers Pending Studies at Discharge: No Stand-Alone Forms: My [employer], Smoking Cessation Medications and DC Order Prescriptions: New benzonatate 100 mg Capsule 100 mg PO TID Qty: 30 0RF Continued amlodipine 10 mg tablet 10 mg PO DAILY calcitriol 0.5 mcg capsule 1.5 mcg PO DAILY Rx Instructions: 3 capsule dose cinacalcet [Sensipar] 30 mg tablet 30 mg PO DAILY hydralazine 100 mg tablet 100 mg PO QID RenaPlex-D 800 mcg-12.5 mg -2,000 unit Tablet 1 tab PO DAILY Mircera 200 mcg/0.3 mL syringe 200 mcg subcut MONTHLY Rx Instructions: had last month -unsure of time- Beginning of July pantoprazole 40 mg Tablet,Delayed Release (Dr/Ec) 40 mg PO QAM 30 Days Qty: 30 0RF losartan [Cozaar] 50 mg Tablet 50 mg PO BID ergocalciferol (vitamin D2) [Vitamin D2] 1,250 mcg (50,000 unit) Capsule 1,250 mcg PO WK metoprolol tartrate 25 mg tablet 25 mg PO BID allopurinol 100 mg tablet 100 mg PO DAILY carvedilol 6.25 mg tablet 6.25 mg PO BID clonidine 0.2 mg/24 hr patch weekly 0.2 mg transdermal WK Discharge Orders: Discharge Order (Routine); Ordered 09/13/22 Ordered By: Taj Ramos Admission Data Admit Date/Time: 09/11/22 11:30 Attending Provider: Taj Ramos Admit Provider: Taj Ramos Primary Care Provider: Mariel Walter Other Providers: Celestina Rush I. ; Rita Munson ; Enrique Viera Other Interventions: Discharge Summary Assessment (RN) Last Done: 09/13/22 12:53
== END 2022-09-13 14:15 | disposition home or self-care (01) | DRG 640 ==
LOC: ED 07:49 → 2E 11:11

== ENCOUNTER 2022-11-10 07:11 | Inpatient (IN) ==
[2022-11-10] MEDS ORDERED: hydrALAZINE HCL 25 MG TAB PO STA (07:49)
[2022-11-10] MEDS ORDERED: LOSARTAN POTASSIUM 50 MG TAB PO STA (07:49)
[2022-11-10] MEDS ORDERED: carvediloL 3.125 MG TAB PO ONE (07:49)
[2022-11-10] MEDS ORDERED: METOPROLOL TARTRATE 25 MG TAB PO STA (07:54)
[2022-11-10] MEDS ORDERED: PIPERACILLIN/TAZOBACTAM 4.5 GM/120 ML BAG IV ONE (07:54)
--- NOTE | 2022-11-10 08:05 | Emergency Department Note ---
Impression & Plan Abdominal pain, Dyspnea ED Provider Note INFORMANT: Patient ED PROVIDER(S): Michael Francis DO CHIEF COMPLAINT: Abdominal pain and dyspnea PLAN: Disposition: Admission Outpatient prescription management: none Discussion with: Hospital MEDICAL DECISION MAKING: This is a 67-year-old male who presents to the ED with a chief complaint of abdominal pain more so in the left lower quadrant. The patient also reports that he was doing peritoneal dialysis last night and he started noticing some blood in the dialysis fluid. He also reports that only half the fluid that he put in came out. He has hemodialysis Monday and Monday at [place] with Dr. Prince. He does peritoneal dialysis other days of the week. He is reporting some abdominal discomfort possibly because only half of the food has come out. He also reports increased pedal edema over the past 5 days. No nausea or vomiting. No fevers. A little bit of shortness of breath. Ox saturations was 89% on room air when he came in. He does use oxygen at home periodically. The patient has tenderness diffusely on my abdominal exam. A CT scan of the abdomen pelvis reveals a fluid collection in the anterior abdomen likely related to his general dialysis fluid. He also has moderate pleural effusions versus consolidation. Kidney function tests are about baseline. Troponin is mildly elevated and this is chronic. White blood cell count is elevated 14. Anemia appears to be chronic. Lactic acid is negative. Peritoneal fluid that he brought in with him was sent for culture. The patient was empirically given some IV Zosyn. He was also given his morning medications including p.o. carvedilol, p.o. hydralazine, p.o. losartan and p.o. metoprolol. He was given some IV morphine for pain. He will be seen by the hospitalist for further inpatient evaluation and care. The hospitalist will see the patient for further evaluation and care. Triage Nursing notes reviewed. Vital Signs: reviewed Prior /Outside records reviewed: 09/13/2022, end-stage renal disease dialysis patient. Peritoneal dialysis catheter has not been working since August. Differential diagnosis: Peritonitis, renal dialysis catheter obstruction, intra-abdominal hemorrhage, systemic infection, electrolyte abnormality, anemia, pulmonary edema, other. Diagnostics, as interpreted by me: 12 lead ECG: Sinus rhythm at a rate of 89. No ST elevation. No PVCs. Normal QTc Cardiac Monitoring ordered: Sinus rhythm in the 80s Medical decision rules: [none] Imaging studies: CT scan of the abdomen pelvis: No bowel obstruction. Chest x-ray: Pulmonary edema Procedures: none. Critical care: none. HPI: See MDM above. PAST MEDICAL HISTORY: See Below PAST SURGICAL HISTORY: See Below SOCIAL HISTORY: See Below HOME MEDICATIONS: See Below ALLERGIES: See Below VITALS: See Below PHYSICAL EXAMINATION: See MDM for positive findings otherwise unremarkable. CONSTITUTIONAL/VITAL SIGNS: Reviewed GENERAL:done as appropriate INTEGUMENTARY: done as appropriate HEAD: done as appropriate EYES: done as appropriate RESPIRATORY: done as appropriate CARDIOVASCULAR:done as appropriate GI/ABDOMEN:done as appropriate EXTREMITIES: done as appropriate NEUROLOGICAL: done as appropriate PSYCHIATRIC:done as appropriate MUSCULOSKELETAL:done as appropriate TRIAGE NURSING DOCUMENTATION REVIEWED. Past Med/Surg History Medical History (Updated 11/10/22 @ 09:25 by SREEDHAR Rust) Acute upper gastrointestinal bleeding Anemia AV fistula Benign prostatic hyperplasia with urinary obstruction Dialysis AV fistula infection Dialysis AV fistula malfunction ESRD (end stage renal disease) on dialysis PD patient; follows with Dr. 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 Fluid overload Hyperkalemia Hypertension Kidney transplant candidate reason for colonoscopy to get on list Nephrolithiasis Peritoneal dialysis catheter in place Peritoneal dialysis status per daughter--"in place with a hole" but currently not using Pleural effusion Restless leg syndrome Symptomatic anemia Surgical History H/O inguinal hernia repair History of colonoscopy History of cystoscopy History of thoracentesis History of tooth extraction Status post creation of arteriovenous fistula left arm Family History Other No family history of adverse response to anesthesia No significant family history Social History Smoking Status: Never smoker Second Hand Exposure: No; Hx Alcohol Use: No Hx Substance Use: No Preferred Language: Libyan Communication Ability: Effective Communication Ability Comment: does not speak any urdu, only Montenegrin Communication Tools: [employer] Supervisor Required: Yes, Video and Voice Beliefs That Will Affect Care: None marital status: Current Living Situation: Spouse current occupational status: employed Feels Safe at Home: Yes Assistive Devices: None Allergies Allergies Allergy/AdvReac Type Severity Reaction Status Date / Time No Known Allergies Allergy Verified 09/11/22 09:01 Home Meds Home Medications Medication Instructions Recorded Confirmed amlodipine 10 mg tablet 10 mg PO DAILY 05/15/19 09/11/22 ergocalciferol (vitamin D2) 1,250 1,250 mcg PO WK 10/28/20 09/11/22 mcg (50,000 unit) capsule (Vitamin D2) losartan 50 mg tablet (Cozaar) 50 mg PO BID 10/28/20 09/11/22 allopurinol 100 mg tablet 100 mg PO DAILY 06/12/22 09/11/22 carvedilol 6.25 mg tablet 6.25 mg PO BID 06/12/22 09/11/22 clonidine 0.2 mg/24 hr weekly 0.2 mg transdermal WK 06/12/22 09/11/22 transdermal patch metoprolol tartrate 25 mg tablet 25 mg PO BID 06/12/22 09/11/22 calcitriol 0.5 mcg capsule 1.5 mcg PO DAILY 08/19/22 09/11/22 cinacalcet 30 mg tablet (Sensipar) 30 mg PO DAILY 08/19/22 09/11/22 epoetin beta, methoxy peg 200 200 mcg subcut MONTHLY 08/19/22 09/11/22 mcg/0.3 mL injection syringe (Mircera) hydralazine 100 mg tablet 100 mg PO QID 08/19/22 09/11/22 vit B,C-folic ac 800 mcg-zinc 12.5 1 tab PO DAILY 08/19/22 09/11/22 mg-selen-D3 2,000 unit-vit E tablet (RenaPlex-D) Previous Rx's Medication Instructions Recorded benzonatate 100 mg capsule 100 mg PO TID #30 caps 09/13/22 Results & Data (ED) Vital Signs Vital Signs - 24 hr 11/10/22 07:17 11/10/22 07:17 11/10/22 07:17 Temperature 36.5 C Temperature Source Oral Pulse Rate 88 Pulse Rate [Apical] 89 Respiratory Rate 32 H Blood Pressure 202/125 H Blood Pressure [Right Arm] Blood Pressure Mean 150 Blood Pressure Mean [Right Arm] Pulse Oximetry 96 95 Oxygen Delivery Method Nasal Cannula Nasal Cannula Nasal Cannula Oxygen Flow Rate 2 2 2 Sepsis Recent Fever Within 48 Hours No Sepsis New/Unexplained Change in Mental Status No Sepsis Action Taken by Nursing No Action Required 11/10/22 07:56 11/10/22 08:00 11/10/22 08:44 Temperature Temperature Source Pulse Rate 82 Pulse Rate [Apical] 85 Respiratory Rate Blood Pressure Blood Pressure [Right Arm] 199/117 H Blood Pressure Mean Blood Pressure Mean [Right Arm] 144 Pulse Oximetry 95 95 Oxygen Delivery Method Nasal Cannula Nasal Cannula Oxygen Flow Rate 2 2 Sepsis Recent Fever Within 48 Hours Sepsis New/Unexplained Change in Mental Status Sepsis Action Taken by Nursing 11/10/22 07:30 11/10/22 09:26 Temperature Temperature Source Pulse Rate Pulse Rate [Apical] Respiratory Rate Blood Pressure Blood Pressure [Right Arm] 174/97 H Blood Pressure Mean Blood Pressure Mean [Right Arm] 122 Pulse Oximetry Oxygen Delivery Method Room Air Oxygen Flow Rate 89 Sepsis Recent Fever Within 48 Hours Sepsis New/Unexplained Change in Mental Status Sepsis Action Taken by Nursing Laboratory Data 11/10/22 07:29 11/10/22 07:29 Lab Results 11/10/22 11/10/22 11/10/22 Range/Units 07:29 07:29 07:29 WBC 14.08 H (4.8-10.8) K/ul RBC 3.80 L (4.70-6.10) M/uL Hgb 10.1 L (14.0-18.0) g/dl Hct 33.3 L (42.0-52.0) % MCV 87.6 (80.0-100.0) fL MCH 26.6 (25.0-34.0) pg MCHC 30.3 L (32.0-36.0) g/dL RDW Std Deviation 66.5 H (36.4-46.3) fL RDW Coeff of Diamond 21.1 H (11.5-14.5) % Plt Count 370 (130-400) K/uL MPV 11.4 (9.4-12.4) fL Immature Gran % (Auto) 0.5 % Neut % (Auto) 78.7 % Lymph % (Auto) 7.0 % [place] % (Auto) 7.3 % Eos % (Auto) 5.9 % Baso % (Auto) 0.6 % Neut # (Auto) 11.07 H (1.40-6.50) K/uL Lymph # (Auto) 0.99 L (1.2-3.4) K/uL [place] # (Auto) 1.03 H (0.11-0.59) K/uL Eos # (Auto) 0.83 H (0-0.50) K/uL Baso # (Auto) 0.09 (0-0.2) K/uL Immature Gran # (Auto) 0.07 (0.01-0.20) K/uL Polychromasia 1+ Hypochromasia Present Anisocytosis Present PT 11.4 (9.0-12.0) Seconds INR 1.1 (0.9-1.1) Sodium 141 (136-145) mmol/L Potassium 4.9 (3.5-5.1) mmol/L Chloride 98 (98-107) mmol/L Carbon Dioxide 28 (21-32) mmol/L Anion Gap 15 H (3-11) BUN 81 H (6-23) mg/dl Creatinine 9.02 H* (0.6-1.4) mg/dl Est Cr Clr Drug Dosing 8.1 ml/min Est GFR ( Amer) 6.2 ml/min Est GFR (Non-Af Amer) 5.4 ml/min BUN/Creatinine Ratio 9.0 L (10-20) Glucose 76 (70-99(Fasting)) mg/dl Lactate (0.4-2.0) mmol/L Calcium 9.7 (8.6-10.3) mg/dl Total Bilirubin 0.4 (0.2-1.0) mg/dl AST 24 (13-39) U/L ALT 12 (7-52) U/L Alkaline Phosphatase 82 (34-104) U/L Troponin I High Sens 129.4 H* (0-20) pg/ml Total Protein 6.9 (6.0-8.3) gm/dl Albumin 3.3 L (3.4-5.0) gm/dl Globulin 3.6 (2.5-4.0) gm/dl Albumin/Globulin Ratio 0.9 (0.9-2) Lipase 31 (11-82) U/L SARS-CoV-2, RNA, NAAT (NEGATIVE) Blood Type Antibody Screen 11/10/22 11/10/22 11/10/22 Range/Units 08:09 08:10 Unknown WBC (4.8-10.8) K/ul RBC (4.70-6.10) M/uL Hgb (14.0-18.0) g/dl Hct (42.0-52.0) % MCV (80.0-100.0) fL MCH (25.0-34.0) pg MCHC (32.0-36.0) g/dL RDW Std Deviation (36.4-46.3) fL RDW Coeff of Diamond (11.5-14.5) % Plt Count (130-400) K/uL MPV (9.4-12.4) fL Immature Gran % (Auto) % Neut % (Auto) % Lymph % (Auto) % [place] % (Auto) % Eos % (Auto) % Baso % (Auto) % Neut # (Auto) (1.40-6.50) K/uL Lymph # (Auto) (1.2-3.4) K/uL [place] # (Auto) (0.11-0.59) K/uL Eos # (Auto) (0-0.50) K/uL Baso # (Auto) (0-0.2) K/uL Immature Gran # (Auto) (0.01-0.20) K/uL Polychromasia Hypochromasia Anisocytosis PT (9.0-12.0) Seconds INR (0.9-1.1) Sodium (136-145) mmol/L Potassium (3.5-5.1) mmol/L Chloride (98-107) mmol/L Carbon Dioxide (21-32) mmol/L Anion Gap (3-11) BUN (6-23) mg/dl Creatinine (0.6-1.4) mg/dl Est Cr Clr Drug Dosing ml/min Est GFR ( Amer) ml/min Est GFR (Non-Af Amer) ml/min BUN/Creatinine Ratio (10-20) Glucose (70-99(Fasting)) mg/dl Lactate 0.9 (0.4-2.0) mmol/L Calcium (8.6-10.3) mg/dl Total Bilirubin (0.2-1.0) mg/dl AST (13-39) U/L ALT (7-52) U/L Alkaline Phosphatase (34-104) U/L Troponin I High Sens (0-20) pg/ml Total Protein (6.0-8.3) gm/dl Albumin (3.4-5.0) gm/dl Globulin (2.5-4.0) gm/dl Albumin/Globulin Ratio (0.9-2) Lipase (11-82) U/L SARS-CoV-2, RNA, NAAT NEGATIVE (NEGATIVE) Blood Type O Positive Antibody Screen NEGATIVE Administered Medications Discontinued Medications Carvedilol (Carvedilol 3.125 Mg Tab) 6.25 mg PO NOW ONE Stop: 11/10/22 07:50 Last Admin: 11/10/22 08:07 Dose: 6.25 mg Documented By: CARLITA Hydralazine HCl (Hydralazine Hcl 25 Mg Tab) 50 mg PO NOW STA Stop: 11/10/22 07:50 Last Admin: 11/10/22 08:07 Dose: 50 mg Documented By: CARLITA Piperacillin Sod/Tazobactam Sod (Zosyn) 4.5 gm in 120 mls @ 240 mls/hr IV NOW ONE Stop: 11/10/22 08:23 Last Infusion: 11/10/22 08:38 Dose: 0 mls/hr Documented By: Admin: 11/10/22 08:07 Dose: 240 mls/hr Documented By: CARLITA Ioversol (Optiray 350 100ml) 94 ml IV ONCE ONE Stop: 11/10/22 08:27 Last Admin: 11/10/22 08:26 Dose: 94 ml Documented By: FABIANA Losartan Potassium (Losartan Potassium 50 Mg Tab) 50 mg PO NOW STA Stop: 11/10/22 07:50 Last Admin: 11/10/22 08:36 Dose: 50 mg Documented By: CARLITA Metoprolol Tartrate (Metoprolol Tartrate 25 Mg Tab) 25 mg PO NOW STA Stop: 11/10/22 07:55 Last Admin: 11/10/22 08:07 Dose: 25 mg Documented By: CARLITA Morphine Sulfate (Morphine Sulfate 2 Mg/Ml Carp) 2 mg IV NOW STA Stop: 11/10/22 08:38 Last Admin: 11/10/22 08:56 Dose: 2 mg Documented By: CARLITA Imaging Data Radiologist's Impression: Abdomen/Pelvis CT 11/10/22 07:49 CT SCAN OF THE ABDOMEN AND PELVIS WITH IV CONTRAST CLINICAL HISTORY: Generalized abdominal pain. Peritoneal dialysis. COMPARISON STUDY: Abdominal CT dated 07/22/2019. TECHNIQUE: Following the IV administration of 94 cc of Optiray 320, CT scan of the abdomen and pelvis is performed from the lung bases to the proximal femora. Images are reviewed in the axial, sagittal, and coronal planes. IV contrast was administered without complication. A dose lowering technique was utilized adhering to the principles of ALARA. The examination is degraded by motion artifact, as well as by streak artifact from the left arm which could not be elevated above the abdomen. CT DOSE: 500.17 mGy.cm FINDINGS: Lung bases: The heart is enlarged and without pericardial effusion. The coronary arteries and mitral annulus are densely calcified. There are moderate pleural effusions with dependent consolidation. A small hiatal hernia is noted. Liver: The contrast-enhanced liver is normal in size, contour, and attenuation. There is no intrahepatic biliary ductal dilatation. The hepatic veins and portal veins are patent. Gallbladder: Unremarkable. Spleen: Normal in size and attenuation. Pancreas: Unremarkable. Adrenal glands: Unremarkable. Kidneys: The contrast enhanced kidneys are atrophic and without hydronephrosis. The kidneys enhance symmetrically. There are numerous tiny/subcentimeter cortical hypodensities. These likely represent cysts but are too small for definitive characterization. Abdominal vasculature: The abdominal aorta is normal in course and caliber noting advanced atherosclerotic calcification. Bowel: There is rectosigmoid fecal retention and mild constipation. No bowel obstruction is seen. The appendix is normal as visualized. Peritoneum: A peritoneal dialysis catheter is coiled in the right lower quadrant from a left upper quadrant approach. There is a large fluid collection filling the anterior abdomen, with posterior displacement of the bowel loops. There is surrounding peritoneal thickening and foci of internal gas. This measures approximately 22 x 11 x 30 cm as seen on axial image #282. Foci of peritoneal free air or nonspecific. Lymphadenopathy: None. Pelvic viscera: The bladder is decompressed and could not be assessed. The prostate gland is enlarged and heterogeneous. Skeletal structures: The skeletal structures are osteopenic. There is mild lumbosacral spondylosis. Degenerative change is noted in the sacroiliac joints. No lytic or blastic lesions are seen. IMPRESSION: 1. A peritoneal dialysis catheter is coiled in the right lower quadrant from a left upper quadrant approach. Numerous foci of intraperitoneal free air are nonspecific given the presence of an indwelling catheter. 2. There is a large thick-walled fluid collection filling the ventral abdomen and pelvis which contains foci of gas and posteriorly displaces the bowel loops. The sterility of this fluid cannot be evaluated by imaging. Clinical correlation will be essential. 3. Moderate pleural effusions with dependent consolidation. 4. Cardiomegaly and advanced atherosclerotic change. 5. Additional findings as above. ACT 112: Negative or not required by law. Electronically signed by: Tone Mccain M.D. 11/10/2022 8:47 AM Chest X-Ray 11/10/22 07:50 XR chest 1V portable HISTORY: Generalized abdominal pain. Shortness of breath. COMPARISON: Chest 09/11/2022. FINDINGS: No pneumothorax. There are low lung volumes. The heart is mildly enlarged. Interval progression of the interstitial/vascular thickening sugg estive of pulmonary edema. Bibasilar densities persist. Moderate left and small right pleural effusions are again noted. These are similar to the prior study. IMPRESSION: 1. Interval progression of the suspected pulmonary edema. 2. Bilateral pleural effusions and bibasilar densities persist. ACT 112: Negative or not required by law. Electronically signed by: Eddy Jacobsen M.D. 11/10/2022 9:00 AM Discharge Plan Visit Data Chief Complaint: Abdominal Pain Stated Complaint: AB PAIN, NAUSEA, BLEEDING ED Provider: Michael Francis Discharge Problem: Abdominal pain, Dyspnea Patient Disposition: Being Evaluated by Hospitalist Forms Stand Alone Forms: On License Of [facility] Prescriptions Prescriptions: No Action amlodipine 10 mg tablet 10 mg PO DAILY calcitriol 0.5 mcg capsule 1.5 mcg PO DAILY Rx Instructions: 3 capsule dose cinacalcet [Sensipar] 30 mg tablet 30 mg PO DAILY hydralazine 100 mg tablet 100 mg PO QID RenaPlex-D 800 mcg-12.5 mg -2,000 unit Tablet 1 tab PO DAILY Mircera 200 mcg/0.3 mL syringe 200 mcg subcut MONTHLY Rx Instructions: had last month -unsure of time- Beginning of July benzonatate 100 mg Capsule 100 mg PO TID Qty: 30 0RF losartan [Cozaar] 50 mg Tablet 50 mg PO BID ergocalciferol (vitamin D2) [Vitamin D2] 1,250 mcg (50,000 unit) Capsule 1,250 mcg PO WK metoprolol tartrate 25 mg tablet 25 mg PO BID allopurinol 100 mg tablet 100 mg PO DAILY carvedilol 6.25 mg tablet 6.25 mg PO BID clonidine 0.2 mg/24 hr patch weekly 0.2 mg transdermal WK Referrals Referrals: Mariel Walter DO [Primary Care Provider] -
[2022-11-10] MEDS ORDERED: OPTIRAY 350 100ml IV ONE (08:26)
[2022-11-10 08:35] LABS: Basophils # (auto) 0.09 K/uL (0-0.2); Basophils % (auto) 0.6 %; Eosinophils # (auto) 0.83 K/uL (0-0.50); Eosinophils % (auto) 5.9 %; Hematocrit (blood only) 33.3 % (42.0-52.0); Hemoglobin 10.1 g/dl (14.0-18.0); Immature Granulocytes # (auto) 0.07 K/uL (0.01-0.20); Immature Granulocytes % (auto) 0.5 %; Lymphocytes # (auto) 0.99 K/uL (1.2-3.4); Mean Corpuscular Hemoglobin 26.6 pg (25.0-34.0); Mean Corpuscular Hgb Conc 30.3 g/dL (32.0-36.0); Mean Corpuscular Volume 87.6 fL (80.0-100.0); Mean Platelet Volume 11.4 fL (9.4-12.4); Monocytes # (auto) 1.03 K/uL (0.11-0.59); Monocytes % (auto) 7.3 %; Neutrophils # (auto) 11.07 K/uL (1.40-6.50); Neutrophils % (auto) 78.7 %; Platelet Count 370 K/uL (130-400); RDW Coefficient of Variation 21.1 % (11.5-14.5); RDW Standard Deviation 66.5 fL (36.4-46.3); White Blood Count 14.08 K/ul (4.8-10.8)
[2022-11-10] MEDS ORDERED: MoRPHine SULFATE 2 MG/ML CARP IV STA (08:37)
[2022-11-10 08:44] LABS: INR 1.1 (0.9-1.1); Prothrombin Time 11.4 Seconds (9.0-12.0)
[2022-11-10 08:46] LABS: Albumin Globulin Ratio 0.9 (0.9-2); Albumin Level 3.3 gm/dl (3.4-5.0); Bilirubin,Total 0.4 mg/dl (0.2-1.0); Calcium 9.7 mg/dl (8.6-10.3); Creatinine Clr Calc Pharmacy 8.1 ml/min; Est GFR (African American) 6.2 ml/min; Est GFR (Non-African American) 5.4 ml/min; Globulin 3.6 gm/dl (2.5-4.0); Potassium 4.9 mmol/L (3.5-5.1); Total Protein 6.9 gm/dl (6.0-8.3); Troponin I High Sensitivity 129.4 pg/ml (0-20)
--- NOTE | 2022-11-10 08:48 | CT Scan Report ---
CT SCAN OF THE ABDOMEN AND PELVIS WITH IV CONTRAST CLINICAL HISTORY: Generalized abdominal pain. Peritoneal dialysis. COMPARISON STUDY: Abdominal CT dated 07/22/2019. TECHNIQUE: Following the IV administration of 94 cc of Optiray 320, CT scan of the abdomen and pelvi s is performed from the lung bases to the proximal femora. Images are reviewed in the axial, sagittal , and coronal planes. IV contrast was administered without complication. A dose lowering technique wa s utilized adhering to the principles of ALARA. The examination is degraded by motion artifact, as we ll as by streak artifact from the left arm which could not be elevated above the abdomen. CT DOSE: 500.17 mGy.cm FINDINGS: Lung bases: The heart is enlarged and without pericardial effusion. The coronary arteries and mitral annulus are densely calcified. There are moderate pleural effusions with dependent consolidation. A s mall hiatal hernia is noted. Liver: The contrast-enhanced liver is normal in size, contour, and attenuation. There is no intrahepa tic biliary ductal dilatation. The hepatic veins and portal veins are patent. Gallbladder: Unremarkable. Spleen: Normal in size and attenuation. Pancreas: Unremarkable. Adrenal glands: Unremarkable. Kidneys: The contrast enhanced kidneys are atrophic and without hydronephrosis. The kidneys enhance s ymmetrically. There are numerous tiny/subcentimeter cortical hypodensities. These likely represent cy sts but are too small for definitive characterization. Abdominal vasculature: The abdominal aorta is normal in course and caliber noting advanced atheroscle rotic calcification. Bowel: There is rectosigmoid fecal retention and mild constipation. No bowel obstruction is seen. The appendix is normal as visualized. Peritoneum: A peritoneal dialysis catheter is coiled in the right lower quadrant from a left upper qu adrant approach. There is a large fluid collection filling the anterior abdomen, with posterior displ acement of the bowel loops. There is surrounding peritoneal thickening and foci of internal gas. This measures approximately 22 x 11 x 30 cm as seen on axial image #282. Foci of peritoneal free air or n onspecific. Lymphadenopathy: None. Pelvic viscera: The bladder is decompressed and could not be assessed. The prostate gland is enlarged and heterogeneous. Skeletal structures: The skeletal structures are osteopenic. There is mild lumbosacral spondylosis. D egenerative change is noted in the sacroiliac joints. No lytic or blastic lesions are seen. IMPRESSION: 1. A peritoneal dialysis catheter is coiled in the right lower quadrant from a left upper quadrant ap proach. Numerous foci of intraperitoneal free air are nonspecific given the presence of an indwelling catheter. 2. There is a large thick-walled fluid collection filling the ventral abdomen and pelvis which contai ns foci of gas and posteriorly displaces the bowel loops. The sterility of this fluid cannot be evalu ated by imaging. Clinical correlation will be essential. 3. Moderate pleural effusions with dependent consolidation. 4. Cardiomegaly and advanced atherosclerotic change. 5. Additional findings as above. ACT 112: Negative or not required by law. Electronically signed by: Tone Mccain M.D. 11/10/2022 8:47 AM
[2022-11-10 08:54] LABS: Anisocytosis Present; Hypochromasia Present; Polychromasia 1+
--- NOTE | 2022-11-10 09:01 | XRay Report ---
XR chest 1V portable HISTORY: Generalized abdominal pain. Shortness of breath. COMPARISON: Chest 09/11/2022. FINDINGS: No pneumothorax. There are low lung volumes. The heart is mildly enlarged. Interval progres laurie of the interstitial/vascular thickening suggestive of pulmonary edema. Bibasilar densities persi st. Moderate left and small right pleural effusions are again noted. These are similar to the prior s tudy. IMPRESSION: 1. Interval progression of the suspected pulmonary edema. 2. Bilateral pleural effusions and bibasilar densities persist. ACT 112: Negative or not required by law. Electronically signed by: Eddy Jacobsen M.D. 11/10/2022 9:00 AM
[2022-11-10] MEDS ORDERED: ALUMINUM/MAGNESIUM SUSP 30 ML UDC PO PRN (09:20)
[2022-11-10] MEDS ORDERED: MAGNESIUM HYDROXIDE SUSP 30 ML UDC PO PRN (09:20)
[2022-11-10] MEDS ORDERED: ACETAMINOPHEN 325 MG TAB PO PRN (09:20)
[2022-11-10] MEDS ORDERED: POLYETHYLENE (MIRALAX) 17 GM PACK PO PRN (09:20)
--- NOTE | 2022-11-10 09:26 | History & Physical Report ---
Date of Service November 10, 2022 Assessment & Plan (1) Abdominal pain: (2) ESRD (end stage renal disease) on dialysis: (3) Hypertension: (4) Anemia of chronic disease: (5) Peritonitis associated with peritoneal dialysis: Plan 67-year-old Sammarinese-speaking patient presents with left lower quadrant abdominal pain and blood noted in peritoneal fluid. Recent admission 09/11 to 09/14 with symptomatic anemia and swelling. Peritonitis: Abdominal pain: Peritoneal dialysis catheter in situ: Kidney Transplant Candidate: -Has been on peritoneal dialysis 4 times a day; does hemodialysis Monday and Monday in [place] -Leukocytosis: 14.08; started on Zosyn in ED; will continue and await culture results; adjust as necessary. -He does have a fistula on the left antecubital fossa; been cleared by Vascular to use; pt denies wanting to pursue more regular HD -Abdominal/pelvic CT: There is a large thick-walled fluid collection filling the ventral abdomen and pelvis which contains foci of gas and posteriorly displaces the bowel loops. The sterility of this fluid cannot be evaluated by imaging. Moderate pleural effusions with dependent consolidation. -Nephro consult; will obtain PD fluid cultures and pursue PD tonight. Per Nephro reccs, 1.5 gm cefazolin, 1.5 gm ceftazidime, 2 gm vancomycin to dwell 6-8hrs if there is catheter malfunction/malpositioning, will need transfer to another facility as surgeon addressing PD cath issues is not working -pt Anuric at baseline low dose Dilaudid PRN for pain control; avoid morphine metabolite to prevent opioid toxicity -Pt receptive to palliative medicine consultation Bilateral lower extremity edema: Chest x-ray:interval progression of the suspected pulmonary edema and bilateral pleural effusions and bibasilar densities persist. BNP pending; last admit > 4700; will check while here. ECHO 06/14: EF 60-65%, G1DDx, Mild MR; If no improvement, consider repeat ECHO to assist with data for palliative approach to care Suspect related to ESRD HTN: -Takes Amlodipine, Clonidine patch, Losartan, metoprolol, Hydralazine; Continue (did not take AM meds) -SBP 174/97: Will see how patient responds with AM meds Anemia of Chronic Disease: Related to ESRD Baseline hgb 10-10.4; today 10.1 Will trend Hgb; has had transfusion in the past No overt signs of bleeding Disposition: PCP: Dr. Smith Code Status: Full Code VTE Prophylaxis: Heparin SQ I spent a total of 88 minutes coordinating, documenting, and providing care for this patient excluding time spent in the performance of separately billed services. All of the aforementioned completed while collaborating with the assigned attending physician for a full treatment plan. Please see their addendum for further details. History of Present Illness Chief Complaint: abdominal pain Primary Care Provider: Mariel Walter DO 67-year-old Sammarinese-speaking patient presents with left lower quadrant abdominal pain and blood noted in peritoneal fluid during his treatment last night. Operations Section Manager ipad utilized in the room with tool supervisor Nor #[id number]. He indicated that during his treatment it became clogged and was only to remove half of the fluid. Patient does report malodor during detaching of his peritoneal catheter. Abdominal CT reveals moderate pleural effusions and fluid collection filling the ventral abdomen and pelvis. Patient with increasing bilateral lower extremity edema over the past 5 days chest x-ray indicates pulmonary edema and bilateral pleural effusions which does correlate with his exam. Patient is an uric at baseline. In the ED WBC 14.08, creatinine 9.02, troponin 129, but do not suspect ACS. BNP last admission > 4700. Recent admission 09/11 to 09/14 with symptomatic anemia and swelling. Patient known to the nephrology service. There have been conversations regarding the extent of his illness and up to this point patient has not been receptive to a palliative approach. Patient does indicate that it is not necessarily interfering with his quality of life and rather just wants to feel better. Patient is receptive to a palliative medicine consultation. Patient denies headache, dizziness, recent falls or trauma, nausea, vomiting, diarrhea. Patient reports increased swelling over the past 5 days in his lower extremities and increased shortness of breath with retained fluid. Patient has abdominal distention compared to his baseline. Patient is sitting upright in his hospital bed and able to answer questions appropriately. Patient is AAOx4. Patient does keep his eyes closed during most of the encounter. Patient able to localize his pain to his left lower quadrant where the peritoneal catheter is inserted. He states compliance with his medications did not take his medicine this morning. Confirmed code status to be full code and that his daughter Sydney is his decision maker: [phone]. Patient denies tobacco, alcohol or recreational drug use. Patient next of kin is his who he lives with. Discussed via [place] text with Dr. Garvin with nephrology. Patient will be admitted for further evaluation and management. Please see A/P for further details. Allergies Allergy/AdvReac Type Severity Reaction Status Date / Time No Known Allergies Allergy Verified 09/11/22 09:01 Home Medications Medication Instructions Recorded Confirmed Type ergocalciferol (vitamin D2) 1,250 1,250 mcg PO WK 10/28/20 11/10/22 History mcg (50,000 unit) capsule (Vitamin D2) losartan 50 mg tablet (Cozaar) 50 mg PO BID 10/28/20 11/10/22 History allopurinol 100 mg tablet 50 mg PO DAILY 06/12/22 11/10/22 History carvedilol 6.25 mg tablet 6.25 mg PO BID 06/12/22 11/10/22 History metoprolol tartrate 25 mg tablet 25 mg PO BID 06/12/22 11/10/22 History calcitriol 0.5 mcg capsule 1.5 mcg PO DAILY 08/19/22 11/10/22 History cinacalcet 30 mg tablet (Sensipar) 30 mg PO DAILY 08/19/22 11/10/22 History vit B,C-folic ac 800 mcg-zinc 12.5 1 tab PO DAILY 08/19/22 11/10/22 History mg-selen-D3 2,000 unit-vit E tablet (RenaPlex-D) amlodipine 5 mg tablet 5 mg PO DAILY 11/10/22 11/10/22 History hydralazine 50 mg tablet 50 mg PO QID 11/10/22 11/10/22 History patiromer calcium sorbitex 8.4 8.4 g PO DAILY 11/10/22 11/10/22 History gram oral powder packet (Veltassa) Past Med/Surg History Medical History (Updated 11/10/22 @ 10:25 by Rita Munson MD, PhD) Acute upper gastrointestinal bleeding Anemia Anemia of chronic disease AV fistula Benign prostatic hyperplasia with urinary obstruction Dialysis AV fistula infection Dialysis AV fistula malfunction ESRD (end stage renal disease) on dialysis PD patient; follows with Dr. Florence in [place]; 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 Fluid overload Hyperkalemia Hypertension Kidney transplant candidate reason for colonoscopy to get on list Nephrolithiasis Peritoneal dialysis catheter in place Peritoneal dialysis status per daughter--"in place with a hole" but currently not using Pleural effusion Restless leg syndrome Symptomatic anemia Surgical History H/O inguinal hernia repair History of colonoscopy History of cystoscopy History of thoracentesis History of tooth extraction Status post creation of arteriovenous fistula left arm Family History Other No family history of adverse response to anesthesia No significant family history Social History Smoking Status: Never smoker Second Hand Exposure: No; Hx Alcohol Use: No Hx Substance Use: No Preferred Language: Paraguayan Communication Ability: Effective Communication Ability Comment: does not speak any kinyarwanda, only Sammarinese Communication Tools: IPad Skin Carver Required: Yes, Video and Voice Beliefs That Will Affect Care: None marital status: Current Living Situation: Spouse current occupational status: employed Feels Safe at Home: Yes Assistive Devices: None Review of Systems Review of Systems: Neuro: (-) Falls, trauma, slurred speech (+) pain HEENT: (-) GA, dizziness, dysphagia, visual or auditory changes CV: (-) CP, palpitations, (+) swelling Resp: (+) SOB GI: (-) appetite changes, N/V/D, bowel changes : (-) urinary changes Skin: (-) rashes Psych: (-) anxiety, depression Physical Exam 2 Physical Exam: Please see Dr. Sahu's addendum for PE Results & Data Results & Data Vital Signs (Past 12 Hours) Vital Signs Temp Pulse Pulse Resp BP BP Pulse Ox 11/10/22 07:30 11/10/22 08:44 85 199/117 H 95 11/10/22 08:00 82 11/10/22 07:56 95 11/10/22 07:17 89 95 11/10/22 07:17 11/10/22 07:17 36.5 C 88 32 H 202/125 H 96 O2 Del Method O2 Flow Rate 11/10/22 07:30 Room Air 89 11/10/22 08:44 Nasal Cannula 2 11/10/22 08:00 11/10/22 07:56 Nasal Cannula 2 11/10/22 07:17 Nasal Cannula 2 11/10/22 07:17 Nasal Cannula 2 11/10/22 07:17 Nasal Cannula 2 Laboratory Results Short CBC 11/10/22 Range/Units 07:29 WBC 14.08 H (4.8-10.8) K/ul Hgb 10.1 L (14.0-18.0) g/dl Hct 33.3 L (42.0-52.0) % Plt Count 370 (130-400) K/uL BMP 11/10/22 07:29 Sodium 141 Potassium 4.9 Chloride 98 Carbon Dioxide 28 BUN 81 H Creatinine 9.02 H* Glucose 76 Calcium 9.7 Liver Function 11/10/22 Range/Units 07:29 Total Bilirubin 0.4 (0.2-1.0) mg/dl AST 24 (13-39) U/L ALT 12 (7-52) U/L Alkaline Phosphatase 82 (34-104) U/L Albumin 3.3 L (3.4-5.0) gm/dl Diagnostic Findings Abdomen/Pelvis CT 11/10/22 07:49 CT SCAN OF THE ABDOMEN AND PELVIS WITH IV CONTRAST CLINICAL HISTORY: Generalized abdominal pain. Peritoneal dialysis. COMPARISON STUDY: Abdominal CT dated 07/22/2019. TECHNIQUE: Following the IV administration of 94 cc of Optiray 320, CT scan of the abdomen and pelvis is performed from the lung bases to the proximal femora. Images are reviewed in the axial, sagittal, and coronal planes. IV contrast was administered without complication. A dose lowering technique was utilized adhering to the principles of ALARA. The examination is degraded by motion artifact, as well as by streak artifact from the left arm which could not be elevated above the abdomen. CT DOSE: 500.17 mGy.cm FINDINGS: Lung bases: The heart is enlarged and without pericardial effusion. The coronary arteries and mitral annulus are densely calcified. There are moderate pleural effusions with dependent consolidation. A small hiatal hernia is noted. Liver: The contrast-enhanced liver is normal in size, contour, and attenuation. There is no intrahepatic biliary ductal dilatation. The hepatic veins and portal veins are patent. Gallbladder: Unremarkable. Spleen: Normal in size and attenuation. Pancreas: Unremarkable. Adrenal glands: Unremarkable. Kidneys: The contrast enhanced kidneys are atrophic and without hydronephrosis. The kidneys enhance symmetrically. There are numerous tiny/subcentimeter cortical hypodensities. These likely represent cysts but are too small for definitive characterization. Abdominal vasculature: The abdominal aorta is normal in course and caliber noting advanced atherosclerotic calcification. Bowel: There is rectosigmoid fecal retention and mild constipation. No bowel obstruction is seen. The appendix is normal as visualized. Peritoneum: A peritoneal dialysis catheter is coiled in the right lower quadrant from a left upper quadrant approach. There is a large fluid collection filling the anterior abdomen, with posterior displacement of the bowel loops. There is surrounding peritoneal thickening and foci of internal gas. This measures approximately 22 x 11 x 30 cm as seen on axial image #282. Foci of peritoneal free air or nonspecific. Lymphadenopathy: None. Pelvic viscera: The bladder is decompressed and could not be assessed. The prostate gland is enlarged and heterogeneous. Skeletal structures: The skeletal structures are osteopenic. There is mild lumbosacral spondylosis. Degenerative change is noted in the sacroiliac joints. No lytic or blastic lesions are seen. IMPRESSION: 1. A peritoneal dialysis catheter is coiled in the right lower quadrant from a left upper quadrant approach. Numerous foci of intraperitoneal free air are nonspecific given the presence of an indwelling catheter. 2. There is a large thick-walled fluid collection filling the ventral abdomen and pelvis which contains foci of gas and posteriorly displaces the bowel loops. The sterility of this fluid cannot be evaluated by imaging. Clinical correlation will be essential. 3. Moderate pleural effusions with dependent consolidation. 4. Cardiomegaly and advanced atherosclerotic change. 5. Additional findings as above. ACT 112: Negative or not required by law. Electronically signed by: Tone Mccain M.D. 11/10/2022 8:47 AM Chest X-Ray 11/10/22 07:50 XR chest 1V portable HISTORY: Generalized abdominal pain. Shortness of breath. COMPARISON: Chest 09/11/2022. FINDINGS: No pneumothorax. There are low lung volumes. The heart is mildly enlarged. Interval progression of the interstitial/vascular thickening suggestive of pulmonary edema. Bibasilar densities persist. Moderate left and small right pleural effusions are again noted. These are similar to the prior study. IMPRESSION: 1. Interval progression of the suspected pulmonary edema. 2. Bilateral pleural effusions and bibasilar densities persist. ACT 112: Negative or not required by law. Electronically signed by: Eddy Jacobsen M.D. 11/10/2022 9:00 AM Code Status & VTE Plan Code Status Full Code in the event of cardiac or respiratory arrest VTE Prophylaxis Plan VTE Prophylaxis will be ordered: Yes Supervising Physician Co-Signing Physician Notes Patient was seen and examined at bedside with Francine ELI. Sammarinese tool supervisor via Ipad was utilized for history, exam and discussing plan of care. Chart reviewed. Case discussed with Francine and agree with the documentation above with regards to history and A/P. In summary, this is a Sammarinese speaking male with ESRD on PD and HD who is being admitted for peritonitis associated with peritoneal dialysis. Exam as below. Labs and imaging reviewed. Discussed with nephrology. Obtain peritoneal clx by PD nurse, then empiric antibiotic awaiting clx results and PD this evening. If the PD catheter is malfunctioning, he will need transfer to another facility as surgeon addressing PD catheter issues is not working. Rest as per the note above. On exam- General: Moderately built, sick looking, not in acute distress, on NC HEENT: EOMI, ADRIAN, MMM Chest: Diminished but fair breath sounds bilaterally, no wheezes or crackles CVS: Regular rate and rhythm, normal heart sounds, no murmur Abdomen: Soft, tender, distended, bowel sounds +, PD catheter noted Neuro: Awake, alert, oriented, conversing appropriately Extremities: No cyanosis, clubbing MSK: LE edema + bilaterally; LUE with AV fistula with bruit +
--- NOTE | 2022-11-10 10:21 | Electrocardiogram Report ---
Test Reason : Blood Pressure : / mmHG Vent. Rate : 089 BPM Atrial Rate : 089 BPM P-R Int : 188 ms QRS Dur : 086 ms QT Int : 366 ms P-R-T Axes : 039 -14 120 degrees QTc Int : 445 ms Sinus rhythm with Premature atrial complexes Possible Left atrial enlargement possible Inferior infarct , age undetermined Poor R wave progression, consider anterior AL vs. lead placement vs. LVH Abnormal ECG Confirmed by Prabhu Abrams ([id number]) on 11/10/2022 10:20:54 AM Referred By: SELF Confirmed By:Juancho Abrams
--- NOTE | 2022-11-10 10:28 | Nephrology Consultation ---
Date of Consultation November 10, 2022 Assessment & Plan (1) Peritonitis associated with peritoneal dialysis: Plan initially had been to do an appropriate dwell and collect peritoneal dialysate specimens for cell count and differential, Gram stain and culture and then to instill intraperitoneal antibiotics for a long daytime dwell then plan peritoneal dialysis overnight Unfortunately with his PD catheter malfunction, we are unable to do any of the above. (2) ESRD (end stage renal disease) on dialysis: This patient has a long history of medical nonadherence to dialysis prescript ions. He is failing peritoneal dialysis. He is on maximal outpatient peritoneal dialysis prescription in addition to twice weekly in center hemodialysis. His PD catheter is malfunctioning but he has a functional AV fistula. His labs are actually the best I have seen them several recent admissions, likely due to addition of hemodialysis to his ESRD care regimen. Likely to need hemodialysis today or tomorrow for volume management in the setting of PD peritonitis (3) PD catheter dysfunction: Due to inability of catheter to aspirate or flush in the setting of peritonitis, recommend and have coordinated transfer to [facility]. At this facility, currently no surgical support with expertise in PD catheter management due to staff PTO. Case discussed with electric razor assembler on-call and Dr Rosemarie Vera who does take care of PD catheter surgical issues at [facility]; also discussed with patient's daughter the patient and [facility] team. Recommend transfer to [facility] for definitive diagnosis and therapy of PD catheter dysfunction in the setting of presumptive PD peritonitis History of Present Illness Reason for Consultation: PD peritonitis Requesting Physician: JAIMEE Dwyer Attending Physician: Dr Francis History of Present Illness 67 y/o M whom I'm asked to see for PD peritonitis came to ER today for evaluati on of LLQ abdominal pain, bloody peritoneal dialysate, and inability to drain his PD fluid this AM. When we went to collect specimens to evaluate for PD peritonitis, his PD catheter neither aspirates nor flushes. 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 He dialyzes under the care of Dr Florence at [facility] in [place]. He has been going in to do hemodialysis Monday and Monday in addition to doing peritoneal dialysis daily. He goes on the cycler for 4 x 2.250 L exchanges and ends with a last bag fill on the cycler of 2 L. His prescription says he is to do 3 x 2 L exchanges daily manually in addition to the cycler in the hemodialysis. I spoke to his [place] dialysis nurse who reports that the patient has been failing peritoneal dialysis for several months now and has often been nonadherent with treatments. He did miss 2 weeks of in center hemorecently but was there reportedly for treatment on November 04 and in center. The patient tells me that his peritoneal dialysis have been going well until last evening when he was unable to drain fluid and noted some fibrin and blood clot in the tubing. Denies earlier drain pain, abdominal pain, or other challenges with the exchanges. He tells me that he uses 2000 units of heparin daily during his PD. Currently the patient tells me he is having significant abdominal pain without nausea vomiting or diarrhea. Endorses worse pain with ambulation and diminished pain with lying still and flat. Some mild dyspnea but he thinks this relates to his bilateral upper abdominal pain. Denies chest pain. Denies worsening edema. He is anuric. Denies focal bleeding. Allergies Allergy/AdvReac Type Severity Reaction Status Date / Time No Known Allergies Allergy Verified 09/11/22 09:01 Home Medications Medication Instructions Recorded Confirmed Type ergocalciferol (vitamin D2) 1,250 1,250 mcg PO WK 10/28/20 11/10/22 History mcg (50,000 unit) capsule (Vitamin D2) losartan 50 mg tablet (Cozaar) 50 mg PO BID 10/28/20 11/10/22 History allopurinol 100 mg tablet 50 mg PO DAILY 06/12/22 11/10/22 History carvedilol 6.25 mg tablet 6.25 mg PO BID 06/12/22 11/10/22 History metoprolol tartrate 25 mg tablet 25 mg PO BID 06/12/22 11/10/22 History calcitriol 0.5 mcg capsule 1.5 mcg PO DAILY 08/19/22 11/10/22 History cinacalcet 30 mg tablet (Sensipar) 30 mg PO DAILY 08/19/22 11/10/22 History vit B,C-folic ac 800 mcg-zinc 12.5 1 tab PO DAILY 08/19/22 11/10/22 History mg-selen-D3 2,000 unit-vit E tablet (RenaPlex-D) amlodipine 5 mg tablet 5 mg PO DAILY 11/10/22 11/10/22 History hydralazine 50 mg tablet 50 mg PO QID 11/10/22 11/10/22 History patiromer calcium sorbitex 8.4 8.4 g PO DAILY 11/10/22 11/10/22 History gram oral powder packet (Veltassa) Patient History Medical History (Updated 11/10/22 @ 18:03 by Rita Munson MD, PhD) Acute upper gastrointestinal bleeding Anemia Anemia of chronic disease AV fistula Benign prostatic hyperplasia with urinary obstruction Dialysis AV fistula infection Dialysis AV fistula malfunction ESRD (end stage renal disease) on dialysis PD patient; follows with Dr. Florence in [place]; 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 Fluid overload Hyperkalemia Hypertension Kidney transplant candidate reason for colonoscopy to get on list Nephrolithiasis Peritoneal dialysis catheter in place Peritoneal dialysis status per daughter--"in place with a hole" but currently not using Pleural effusion Restless leg syndrome Symptomatic anemia Surgical History H/O inguinal hernia repair History of colonoscopy History of cystoscopy History of thoracentesis History of tooth extraction Status post creation of arteriovenous fistula left arm Family History Other No family history of adverse response to anesthesia No significant family history Social History Smoking Status: Former smoker Second Hand Exposure: No; Hx Alcohol Use: No Hx Substance Use: No Preferred Language: Congolese Communication Ability: Effective Communication Ability Comment: does not speak any australian, only Congolese Communication Tools: IPad Price Checker Required: Yes Beliefs That Will Affect Care: None marital status: Current Living Situation: Spouse current occupational status: employed Feels Safe at Home: Yes Assistive Devices: None Review of Systems Review of Systems: All systems reviewed & are unremarkable except as noted in HPI & below Physical Exam Constitutional: well developed, well nourished, + acute distress (Mild from abdominal pain), + ill appearing and cooperative Eyes: EOM intact bilaterally ENMT: Ears: no external ear abnormality Nose: no external nose abnormality Mouth: + dry oral mucous membranes Neck: no nuchal rigidity Respiratory: normal respiratory effort, + labored breathing (Slight) and + paradoxical thoraco-abdominal movement; no respiratory distress and no cough Auscultation: + diminished lung sounds Cardiovascular: Rate/Rhythm: regular rate and regular rhythm Extremities: + edema (Trace bilateral) and + AV fistula (Left proximal arm positive thrill and bruit) Gastrointestinal (Abdomen): Inspection/Auscultation: + abdomen distended and + hypoactive bowel sounds Percussion/Palpation: + abdomen tender (Diffusely), + guarding and abdomen soft; abdomen not rigid Musculoskeletal: Extremities: strength 5/5 throughout Skin: no rashes, warm and dry Neurologic: sim, fluent speech, no tremor Results & Data Vital Signs (Past 12 Hours) Vital Signs Temp Pulse Pulse Resp BP BP Pulse Ox 11/10/22 09:26 174/97 H 11/10/22 07:30 11/10/22 08:44 85 199/117 H 95 11/10/22 08:00 82 11/10/22 07:56 95 11/10/22 07:17 89 95 11/10/22 07:17 11/10/22 07:17 36.5 C 88 32 H 202/125 H 96 O2 Del Method O2 Flow Rate 11/10/22 09:26 11/10/22 07:30 Room Air 89 11/10/22 08:44 Nasal Cannula 2 11/10/22 08:00 11/10/22 07:56 Nasal Cannula 2 11/10/22 07:17 Nasal Cannula 2 11/10/22 07:17 Nasal Cannula 2 11/10/22 07:17 Nasal Cannula 2 Laboratory Results 11/10/22 07:29 11/10/22 07:[address] abdomen pelvis with IV contrast Lung bases: The heart is enlarged and without pericardial effusion. The coronary arteries and mitral annulus are densely calcified. There are moderate pleural effusions with dependent consolidation. A small hiatal hernia is noted. Liver: The contrast-enhanced liver is normal in size, contour, and attenuation. There is no intrahepatic biliary ductal dilatation. The hepatic veins and portal veins are patent. Gallbladder: Unremarkable. Spleen: Normal in size and attenuation. Pancreas: Unremarkable. Adrenal glands: Unremarkable. Kidneys: The contrast enhanced kidneys are atrophic and without hydronephrosis. The kidneys enhance symmetrically. There are numerous tiny/subcentimeter cortical hypodensities. These likely represent cysts but are too small for definitive characterization. Abdominal vasculature: The abdominal aorta is normal in course and caliber noting advanced atherosclerotic calcification. Bowel: There is rectosigmoid fecal retention and mild constipation. No bowel obstruction is seen. The appendix is normal as visualized. Peritoneum: A peritoneal dialysis catheter is coiled in the right lower quadrant from a left upper quadrant approach. There is a large fluid collection filling the anterior abdomen, with posterior displacement of the bowel loops. There is surrounding peritoneal thickening and foci of intrnal gas. This measures approximately 22 x 11 x 30 cm as seen on axial image #282. Foci of peritoneal free air or nonspecific. Lymphadenopathy: None. Pelvic viscera: The bladder is decompressed and could not be assessed. The prostate gland is enlarged and heterogeneous. Skeletal structures: The skeletal structures are osteopenic. There is mild lumbosacral spondylosis. Degenerative change is noted in the sacroiliac joints. No lytic or blastic lesions are seen. IMPRESSION: 1. A peritoneal dialysis catheter is coiled in the right lower quadrant from a left upper quadrant approach. Numerous foci of intraperitoneal free air are nonspecific given the presence of an indwelling catheter. 2. There is a large thick-walled fluid collection filling the ventral abdomen and pelvis which contains foci of gas and posteriorly displaces the bowel loops. The sterility of this fluid cannot be evaluated by imaging. Clinical correlation will be essential. 3. Moderate pleural effusions with dependent consolidation. 4. Cardiomegaly and advanced atherosclerotic change. 5. Additional findings as above. cxr 1. Interval progression of the suspected pulmonary edema. 2. Bilateral pleural effusions and bibasilar densities persist.
[2022-11-10] MEDS ORDERED: CINACALCET HCL 30 MG TAB PO SCH (10:45)
[2022-11-10] MEDS ORDERED: carvediloL 6.25 MG TAB PO SCH (10:45)
[2022-11-10] MEDS ORDERED: CALCITRIOL 0.25 MCG CAPSULE PO SCH (10:45)
[2022-11-10] MEDS ORDERED: amLODIPine BESYLATE 5 MG TAB PO SCH (10:45)
[2022-11-10] MEDS ORDERED: NEPHROCAPS PO SCH (10:45)
[2022-11-10] MEDS ORDERED: allopurinoL 100 MG TAB PO SCH (10:45)
[2022-11-10] MEDS ORDERED: HYDROmorphone INJ 0.5 MG/0.5 ML SYR IV PRN (10:52)
[2022-11-10] MEDS ORDERED: VANCOMYCIN CONSULT ACTIVE PRN (12:52)
[2022-11-10] MEDS ORDERED: VANCOMYCIN HCL IP SCH ×2 (13:00)
[2022-11-10] MEDS ORDERED: [UNRECOGNIZED DRUG - OTHER] IP SCH ×2 (13:00)
[2022-11-10] MEDS ORDERED: CEFTAZIDIME IP SCH ×2 (13:00)
[2022-11-10] MEDS ORDERED: CEFAZOLIN IP SCH ×2 (13:00)
[2022-11-10] MEDS ORDERED: VANCOMYCIN HCL 1,500 MG in SODIUM CHLORIDE 0.9% 500 ML IV ONE (13:30)
--- NOTE | 2022-11-10 13:48 | Pharmacy Report ---
Pharmacy PK ABX Note - Date of Service November 10, 2022 - Assessment and Plan Assessment 67 year old M receiving IV Vancomycin + Zosyn for treatment of Peritonitis associated with peritoneal dialysis. Originally planned to have IP antibiotic treatment: 2L of 2.5% with 1.5 gm cefazolin, 1.5 gm ceftazidime, 2 gm vancomycin to dwell 6-8hrs but dialysis nurse was unable to flush or aspirate the PD tube, so currently only treating with IV antibiotics until transfer to [facility] for accepting surgeon. WBC 14, PD fluid culture pending. Day # 1 of antimicrobial therapy. Plan Vancomycin * Loading dose: 1500 mg IV x 1 * Further dosing and monitoring in the AM if patient is still here Zosyn 4.5g IV loading dose, then 4.5g IV Q12H for dialysis patient Pharmacy will continue to follow and will adjust dose/frequency as necessary. Thank you.
[2022-11-10] MEDS: hydrALAZINE TAB 50 MG TAB PO SCH ×2 (14:49→17:20)
[2022-11-10 14:51] LABS: Appearance Peritoneal Fluid Bloody; Color Peritoneal Fluid Red; RBC Peritoneal Fluid Auto 38000 /uL; WBC Peritoneal Fluid Auto 32 /ul (0-300)
[2022-11-10 15:21] LABS: Basophils, Fluid 1 %; Eosinophils, Fluid 2 %; Lymphocytes, Fluid 37 %; Mono,Macrophage,Mesothelial 5 %; Neutrophils, Fluid 55 %
[2022-11-10] MEDS ORDERED: PIPERACILLIN/TAZOBACTAM 4.5 GM CI (over 4 hours) IV SCH (16:00)
--- NOTE | 2022-11-10 16:51 | Discharge Summary ---
Date of Service November 10, 2022 Admission HPI Per Admitting Provider 67-year-old [place] Islander-speaking patient presents with left lower quadrant abdominal pain and blood noted in peritoneal fluid during his treatment last night. Health Information Specialist ipad utilized in the room with lead front end developer Nor #[id number]. He indicated that during his treatment it became clogged and was only to remove half of the fluid. Patient does report malodor during detaching of his peritoneal catheter. Abdominal CT reveals moderate pleural effusions and fluid collection filling the ventral abdomen and pelvis. Patient with increasing bilateral lower extremity edema over the past 5 days chest x-ray indicates pulmonary edema and bilateral pleural effusions which does correlate with his exam. Patient is an uric at baseline. In the ED WBC 14.08, creatinine 9.02, troponin 129, but do not suspect ACS. BNP last admission > 4700. Recent admission 09/11 to 09/14 with symptomatic anemia and swelling. Patient known to the nephrology service. There have been conversations regarding the extent of his illness and up to this point patient has not been receptive to a palliative approach. Patient does indicate that it is not necessarily interfering with his quality of life and rather just wants to feel better. Patient is receptive to a palliative medicine consultation. Patient denies headache, dizziness, recent falls or trauma, nausea, vomiting, diarrhea. Patient reports increased swelling over the past 5 days in his lower extremities and increased shortness of breath with retained fluid. Patient has abdominal distention compared to his baseline. Patient is sitting upright in his hospital bed and able to answer questions appropriately. Patient is AAOx4. Patient does keep his eyes closed during most of the encounter. Patient able to localize his pain to his left lower quadrant where the peritoneal catheter is inserted. He states compliance with his medications did not take his medicine this morning. Confirmed code status to be full code and that his daughter Sydney is his decision maker: [phone]. Patient denies tobacco, alcohol or recreational drug use. Patient next of kin is his who he lives with. Discussed via [place] text with Dr. Garvin with nephrology. Patient will be admitted for further evaluation and management. Please see A/P for further details. Admission Exam Per Admitting Provider General: Moderately built, sick looking, not in acute distress, on NC HEENT: EOMI, ADRIAN, MMM Chest: Diminished but fair breath sounds bilaterally, no wheezes or crackles CVS: Regular rate and rhythm, normal heart sounds, no murmur Abdomen: Soft, tender, distended, bowel sounds +, PD catheter noted Neuro: Awake, alert, oriented, conversing appropriately Extremities: No cyanosis, clubbing MSK: LE edema + bilaterally; LUE with AV fistula with bruit + Principal Diagnosis Peritonitis associated with malfunctioning peritoneal dialysis Discharge Exam General: Moderately built, sick looking, not in acute distress, on NC HEENT: EOMI, ADRIAN, MMM Chest: Diminished but fair breath sounds bilaterally, no wheezes or crackles CVS: Regular rate and rhythm, normal heart sounds, no murmur Abdomen: Soft, tender, distended, bowel sounds +, PD catheter noted Neuro: Awake, alert, oriented, conversing appropriately Extremities: No cyanosis, clubbing MSK: LE edema + bilaterally; LUE with AV fistula with bruit + Discharge Data Allergies Allergy/AdvReac Type Severity Reaction Status Date / Time No Known Allergies Allergy Verified 09/11/22 09:01 Consultations 11/10/22 09:20 Consult Nephrology Routine 11/10/22 15:36 Burn CD for patient Routine Ordered Studies 11/10/22 07:49 CT abd pelvis IV con only Stat Hospital Course (1) Abdominal pain: (2) ESRD (end stage renal disease) on dialysis: (3) Hypertension: (4) Anemia of chronic disease: (5) Peritonitis associated with peritoneal dialysis: Plan 67-year-old [place] Islander-speaking patient presents with left lower quadrant abdominal pain and blood noted in peritoneal fluid. Recent admission 09/11 to 09/14 with symptomatic anemia and swelling. Patient was admitted for peritonitis associated with malfunctioning peritoneal dialysis catheter. Empiric antibiotic was started. Patient was seen by nephrology. Unfortunately, hemodialysis nurse was unable to flush or aspirate the patients peritoneal dialysis catheter. Nephrology plan for intra-abdominal antibiotics however with no access patient appears to require a peritoneal dialysis tube exchange. Based on limited resources here at [facility]- plan for upgrading care.Discussed with family regarding transfer options and patient and family requesting transfer to [facility]. Nephrology was able to speak withDr. Ashley Coto,general surgery at [facility] who is willing to take the patient for evaluation and possible tube exchange. IV vancomycin and IV Zosyn initiated. Accepting hospitalistDr. Aguiar. Patient is stable for transfer. Paperwork was completed by Francine ELI. Please see H&P note from earlier today for further details. Total Time Total Time Spent Total Time Spent (In Minutes): 40 Discharge Plan Discharge Items Patient Disposition: Transfer Acute Care Hospital Reason For Visit: ABDOMINAL PAIN Discharge Diagnosis: Peritonitis; malfunction of PD catheter Condition on Discharge: Fair Health Concerns: Peritonitis and malfunction of peritoneal dialysis catheter Activity: Per Instructions section Non-emergency contact: Primary Care Provider Call non-emergency contact if: your temperature is above 101 Follow-up/Referrals: Mariel Walter DO [Primary Care Provider] - Diet: Dialysis Renal Diet Texture: Easy to Chew Addtl Attending Provider Instructions: You are being transferred to [facility] for further management of your medical condition including peritoneal dialysis catheter. Pending Studies at Discharge: No Stand-Alone Forms: My [facility] Skilled Items Patient informed of condition?: Yes DNR: No Discharge Level of Care: Other Communicable Disease: No Discharge Prognosis: Stable Lines: Peripheral IV Urinary Catheter: No Medications and DC Order Prescriptions: No Action calcitriol 0.5 mcg capsule 1.5 mcg PO DAILY Rx Instructions: 3 capsule dose cinacalcet [Sensipar] 30 mg tablet 30 mg PO DAILY RenaPlex-D 800 mcg-12.5 mg -2,000 unit Tablet 1 tab PO DAILY amlodipine 5 mg tablet 5 mg PO DAILY hydralazine 50 mg tablet 50 mg PO QID Veltassa 8.4 gram powder in packet 8.4 g PO DAILY losartan [Cozaar] 50 mg Tablet 50 mg PO BID ergocalciferol (vitamin D2) [Vitamin D2] 1,250 mcg (50,000 unit) Capsule 1,250 mcg PO WK metoprolol tartrate 25 mg tablet 25 mg PO BID allopurinol 100 mg tablet 50 mg PO DAILY carvedilol 6.25 mg tablet 6.25 mg PO BID Discharge Orders: Discharge Order (Routine); Ordered 11/10/22 Ordered By: Francine Dwyer Admission Data Admit Date/Time: 11/10/22 09:20 Attending Provider: Robinson Sahu Admit Provider: Robinson Sahu Primary Care Provider: Mariel Walter Other Providers: Rita Munson
[2022-11-10] MEDS ORDERED: METOPROLOL TARTRATE 25 MG TAB PO SCH (21:00)
[2022-11-10] MEDS ORDERED: LOSARTAN POTASSIUM 50 MG TAB PO SCH (21:00)
[2022-11-10] MEDS ORDERED: HEPARIN SOD 5,000 UNIT/0.5 ML VIAL SQ SCH (21:00)
[2022-11-11] MEDS ORDERED: VANCOMYCIN HCL 1,000 MG in SODIUM CHLORIDE 0.9% 250 ML IV SCH
[2022-11-11] MEDS ORDERED: PATIROMER CALCIUM SORBITEX 8.4 GM PACK PO SCH (11:00)
[2022-11-13] MEDS ORDERED: ERGOCALCIFEROL 50,000 UNITS 1250 MCG CAP PO SCH (09:00)
== END 2022-11-10 19:18 | disposition short-term general hospital (02) | DRG 919 ==
LOC: ED 07:11 → 2W 09:20

== ENCOUNTER 2022-12-04 23:37 | Inpatient (IN) ==
--- NOTE | 2022-12-04 23:55 | Emergency Department Note ---
History of Present Illness General Chief complaint: Shortness of Breath/Dyspnea Stated complaint: SHORT OF BREATH History of Present Illness 67-year-old male presents via EMS reportedly has home oxygen canisters and uses them for shortness of breath. Patient is end-stage renal disease with dialysis on Monday and reportedly did receive dialysis on Monday. Per EMS the patient is chronically short of breath has a history of COPD and does not have home oxygen except for these canisters of oxygen that he uses. Patient does answer my questions however he is reportedly patient speaking. Patient has no other complaints Home Medications Medication Instructions Recorded Confirmed Type ergocalciferol (vitamin D2) 1,250 1,250 mcg PO WK 10/28/20 12/05/22 History mcg (50,000 unit) capsule (Vitamin D2) losartan 50 mg tablet (Cozaar) 50 mg PO AMHS 10/28/20 12/05/22 History allopurinol 100 mg tablet 50 mg PO DAILY 06/12/22 12/05/22 History carvedilol 6.25 mg tablet 6.25 mg PO AMHS 06/12/22 12/05/22 History metoprolol tartrate 25 mg tablet 25 mg PO BID 06/12/22 12/05/22 History calcitriol 0.5 mcg capsule 1.5 mcg PO DAILY 08/19/22 12/05/22 History cinacalcet 30 mg tablet (Sensipar) 30 mg PO DAILY 08/19/22 12/05/22 History vit B,C-folic ac 800 mcg-zinc 12.5 1 tab PO DAILY 08/19/22 12/05/22 History mg-selen-D3 2,000 unit-vit E tablet (RenaPlex-D) amlodipine 5 mg tablet 5 mg PO DAILY 11/10/22 12/05/22 History hydralazine 50 mg tablet 50 mg PO QID 11/10/22 12/05/22 History patiromer calcium sorbitex 8.4 8.4 g PO QAM 11/10/22 12/05/22 History gram oral powder packet (Veltassa) megestrol 20 mg tablet 20 mg PO QAM 12/05/22 12/05/22 History Allergies Allergy/AdvReac Type Severity Reaction Status Date / Time No Known Allergies Allergy Verified 12/05/22 00:51 Past Med/Surg History Medical History Acute upper gastrointestinal bleeding Anemia Anemia of chronic disease AV fistula Benign prostatic hyperplasia with urinary obstruction Dialysis AV fistula infection Dialysis AV fistula malfunction ESRD (end stage renal disease) on dialysis PD patient; follows with Dr. Florence in [place]; 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 Fluid overload Hyperkalemia Hypertension Kidney transplant candidate reason for colonoscopy to get on list Nephrolithiasis Peritoneal dialysis catheter in place Peritoneal dialysis status per daughter--"in place with a hole" but currently not using Pleural effusion Restless leg syndrome Symptomatic anemia Surgical History H/O inguinal hernia repair History of colonoscopy History of cystoscopy History of thoracentesis History of tooth extraction Status post creation of arteriovenous fistula left arm Family History Other No family history of adverse response to anesthesia No significant family history Social History Smoking Status: Unknown if ever smoked Second Hand Exposure: No; Do You Dip or Chew Tobacco: No; Hx Alcohol Use: No Hx Substance Use: No Preferred Language: Burkinan Communication Ability: Effective Communication Ability Comment: does not speak any french, only Burkinan Communication Tools: IPad Diplomatic Courier Required: Yes Beliefs That Will Affect Care: None marital status: Current Living Situation: Spouse current occupational status: employed Feels Safe at Home: Yes Assistive Devices: None Review of Systems Other language barrier Physical Exam Vital Signs Vital Signs - 24 hr 12/04/22 23:40 12/04/22 23:40 12/04/22 23:54 Temperature 36.7 C Temperature Source Oral Pulse Rate 110 H Pulse Rate [Right Finger] Pulse Rhythm Regular Pulse Rhythm [Right Finger] Respiratory Rate 22 Respiratory Effort / Characteristics Labored Respiratory Depth Normal Normal Respiratory Pattern Regular Blood Pressure 140/90 Blood Pressure [Right Arm] Blood Pressure Mean 106 Blood Pressure Mean [Right Arm] Blood Pressure Position Semi-fowlers Blood Pressure Position [Right Arm] Pulse Oximetry 97 97 Oxygen Delivery Method Non-rebreather Non-rebreather Oxygen Flow Rate 10 10 Sepsis Recent Fever Within 48 Hours No Sepsis New/Unexplained Change in Mental Status N/A Sepsis Action Taken by Nursing Physician Notified Oxygen Flow Rate - Titration Pulse Oximetry Post Tiitration 12/04/22 23:40 12/05/22 01:54 12/05/22 00:54 Temperature 36.7 C Temperature Source Oral Pulse Rate 95 H Pulse Rate [Right Finger] 110 H Pulse Rhythm Pulse Rhythm [Right Finger] Regular Respiratory Rate 22 Respiratory Effort / Characteristics Labored Respiratory Depth Normal Respiratory Pattern Blood Pressure 132/88 Blood Pressure [Right Arm] 140/90 Blood Pressure Mean Blood Pressure Mean [Right Arm] 106 Blood Pressure Position Blood Pressure Position [Right Arm] Semi-fowlers Pulse Oximetry 99 99 Oxygen Delivery Method Non-rebreather Non-rebreather Oxygen Flow Rate 10 10 Sepsis Recent Fever Within 48 Hours Sepsis New/Unexplained Change in Mental Status Sepsis Action Taken by Nursing Oxygen Flow Rate - Titration 6 Pulse Oximetry Post Tiitration 95 GENERAL: Patient is awake alert in no acute distress patient is resting com fortably EYES: The conjunctivae are clear. The pupils are round and reactive. EARS, NOSE, MOUTH AND THROAT: The nose is without any evidence of any deformity. Mucous membranes are moist. Tongue is midline. NECK: The neck is nontender and supple. RESPIRATORY: Normal respiratory effort is noted there is no evidence of wheezing rhonchi or rales CARDIOVASCULAR: Regular rate and rhythm noted there no murmurs rubs or gallops normal S1 normal S2. GASTROINTESTINAL: The abdomen is soft. Abdomen is nontender. BACK: No midline tenderness or or step-off noted range of motion in flexion extension as well as rotation no signs of muscle spasm noted MUSCULOSKELETAL/EXTREMITIES: There is no evidence of gross deformity full range of motion is noted in the hips and shoulders. SKIN: There is no obvious evidence of any rash. There are no petechiae, pallor or cyanosis noted. NEUROLOGIC: Patient is awake alert Course Reevaluation(s) Reevaluation #1: Patient was given oxygen, patient was started on Lasix, aspirin. Patient is in no respiratory distress on repeat examination states he feels improved Time: 02:19 Consultations Consultation #1: [facility] Time: 01:30 Administered Medications Discontinued Medications Aspirin (Aspirin Chew 324 Mg) 324 mg PO NOW STA Stop: 12/05/22 00:46 Last Admin: 12/05/22 00:52 Dose: 324 mg Documented By: Furosemide (Furosemide 40 Mg/4 Ml Vial) 40 mg IV ONE ONE Stop: 12/05/22 00:39 Last Admin: 12/05/22 00:52 Dose: 40 mg Documented By: Ipratropium [place] (Ipratropium [place] Neb Soln 0.02% 2.5 Ml Vial) 0.5 mg INH NOW STA Stop: 12/05/22 00:59 Last Admin: 12/05/22 01:24 Dose: 0.5 mg Documented By: Levalbuterol HCl (Levalbuterol 1.25 Mg/3 Ml Neb) 1.25 mg NEB NOW STA Stop: 12/05/22 00:59 Last Admin: 12/05/22 01:32 Dose: Not Given Documented By: KATYA Metoprolol Tartrate (Metoprolol Tartrate 1 Mg/Ml Vial) 2.5 mg IV NOW STA Stop: 12/05/22 01:05 Last Admin: 12/05/22 01:54 Dose: 2.5 mg Documented By: Critical Care Time Critical Care Time: Yes Total Critical Care Time: 35 I have personally spent greater than 35 minutes of critical care time in the direct management of this patient. This includes bedside care, interpretation of diagnostic studies, and testing, discussion with consultants, patient, and family members, and other required patient management activities. These minutes are in excess of all separately billable procedures. Medical Decision Making Medical Records Attestation: I reviewed the patient's medical records. Home Medications Current Medication List: was personally reviewed by me Laboratory Data Attestation: I reviewed the patient's lab results. Patient has an elevated troponin, elevated creatinine, low hemoglobin 12/04/22 23:53 12/04/22 23:53 Lab Results 12/04/22 12/04/22 12/04/22 Range/Units 23:53 23:53 23:53 WBC 10.94 H (4.8-10.8) K/ul RBC 3.18 L (4.70-6.10) M/uL Hgb 8.6 L (14.0-18.0) g/dl Hct 27.8 L (42.0-52.0) % MCV 87.4 (80.0-100.0) fL MCH 27.0 (25.0-34.0) pg MCHC 30.9 L (32.0-36.0) g/dL RDW Std Deviation 60.4 H (36.4-46.3) fL RDW Coeff of Diamond 18.8 H (11.5-14.5) % Plt Count 393 (130-400) K/uL MPV 10.5 (9.4-12.4) fL Immature Gran % (Auto) 0.4 % Neut % (Auto) 68.8 % Lymph % (Auto) 10.6 % [place] % (Auto) 13.4 % Eos % (Auto) 5.3 % Baso % (Auto) 1.5 % Neut # (Auto) 7.53 H (1.40-6.50) K/uL Lymph # (Auto) 1.16 L (1.2-3.4) K/uL [place] # (Auto) 1.47 H (0.11-0.59) K/uL Eos # (Auto) 0.58 H (0-0.50) K/uL Baso # (Auto) 0.16 (0-0.2) K/uL Immature Gran # (Auto) 0.04 (0.01-0.20) K/uL PT (9.0-12.0) Seconds INR (0.9-1.1) APTT (21.0-31.0) Seconds PTT Ratio POC pH (7.35-7.45) POC pCO2 (35-46) mmHg POC pO2 (80-95) mmHg POC HCO3 (19-24) lalo/L POC Total CO2 (24-31) mmol/L POC Base Excess (-9-1.8) lalo/L POC ABG O2 Sat (90-95) % Sodium 140 (136-145) mmol/L Potassium 5.5 H (3.5-5.1) mmol/L Chloride 96 L (98-107) mmol/L Carbon Dioxide 31 (21-32) mmol/L Anion Gap 13 H (3-11) BUN 74 H (6-23) mg/dl Creatinine 7.17 H* (0.6-1.4) mg/dl Est Cr Clr Drug Dosing 5.1 ml/min Est GFR ( Amer) 8.2 ml/min Est GFR (Non-Af Amer) 7.1 ml/min BUN/Creatinine Ratio 10.3 (10-20) Glucose 75 (70-99(Fasting)) mg/dl Calcium 9.3 (8.6-10.3) mg/dl Magnesium 2.1 (1.7-2.4) mg/dl Total Bilirubin 0.6 (0.2-1.0) mg/dl AST 52 H (13-39) U/L ALT 27 (7-52) U/L Alkaline Phosphatase 86 (34-104) U/L Troponin I High Sens 291.2 H* (0-20) pg/ml B-Natriuretic Peptide > 4700 H (0-100) pg/ml Total Protein 6.3 (6.0-8.3) gm/dl Albumin 3.2 L (3.4-5.0) gm/dl Globulin 3.1 (2.5-4.0) gm/dl Albumin/Globulin Ratio 1.0 (0.9-2) SARS-CoV-2, RNA, NAAT (NEGATIVE) 12/04/22 12/05/22 12/05/22 Range/Units 23:53 01:05 01:16 WBC (4.8-10.8) K/ul RBC (4.70-6.10) M/uL Hgb (14.0-18.0) g/dl Hct (42.0-52.0) % MCV (80.0-100.0) fL MCH (25.0-34.0) pg MCHC (32.0-36.0) g/dL RDW Std Deviation (36.4-46.3) fL RDW Coeff of Diamond (11.5-14.5) % Plt Count (130-400) K/uL MPV (9.4-12.4) fL Immature Gran % (Auto) % Neut % (Auto) % Lymph % (Auto) % [place] % (Auto) % Eos % (Auto) % Baso % (Auto) % Neut # (Auto) (1.40-6.50) K/uL Lymph # (Auto) (1.2-3.4) K/uL [place] # (Auto) (0.11-0.59) K/uL Eos # (Auto) (0-0.50) K/uL Baso # (Auto) (0-0.2) K/uL Immature Gran # (Auto) (0.01-0.20) K/uL PT 11.9 (9.0-12.0) Seconds INR 1.1 (0.9-1.1) APTT 31.6 H (21.0-31.0) Seconds PTT Ratio 1.1 POC pH 7.41 (7.35-7.45) POC pCO2 56 H (35-46) mmHg POC pO2 70 L (80-95) mmHg POC HCO3 35 H (19-24) lalo/L POC Total CO2 37 H (24-31) mmol/L POC Base Excess 11.0 H (-9-1.8) lalo/L POC ABG O2 Sat 93.0 (90-95) % Sodium (136-145) mmol/L Potassium (3.5-5.1) mmol/L Chloride (98-107) mmol/L Carbon Dioxide (21-32) mmol/L Anion Gap (3-11) BUN (6-23) mg/dl Creatinine (0.6-1.4) mg/dl Est Cr Clr Drug Dosing ml/min Est GFR ( Amer) ml/min Est GFR (Non-Af Amer) ml/min BUN/Creatinine Ratio (10-20) Glucose (70-99(Fasting)) mg/dl Calcium (8.6-10.3) mg/dl Magnesium (1.7-2.4) mg/dl Total Bilirubin (0.2-1.0) mg/dl AST (13-39) U/L ALT (7-52) U/L Alkaline Phosphatase (34-104) U/L Troponin I High Sens (0-20) pg/ml B-Natriuretic Peptide (0-100) pg/ml Total Protein (6.0-8.3) gm/dl Albumin (3.4-5.0) gm/dl Globulin (2.5-4.0) gm/dl Albumin/Globulin Ratio (0.9-2) SARS-CoV-2, RNA, NAAT NEGATIVE (NEGATIVE) Imaging Data Attestation: I personally reviewed and interpreted this imaging study as follows: My Impression: Chest x-ray interpreted by me bilateral pleural effusions left greater than right ECG Data Attestation: I personally reviewed and interpreted this ECG as follows: Additional Comments: EKG interpreted by me sinus tachycardia rate of 105 left ventricular hypertrophy normal axis no obvious ST segment elevation or depression normal intervals Telemetry was ordered by me, interpreted as sinus tachycardia rate of 102 MDM [facility] Medical decision making differential diagnosis COPD CHF pneumonia metabolic derangement electrolyte abnormality Plan is to check labs, EKG, chest x-ray EMS medical report was reviewed and bedside report was given to me Prior external medical records reviewed Patient has hypoxia, bilateral pleural effusions, elevated troponin elevated creatinine hemoglobin. Patient is oxygen requiring. Patient will be admitted for further treatment and evaluation Impression & Plan Pleural effusion, Elevated troponin, Anemia, Renal failure, Hypoxia Discharge Plan Visit Data Chief Complaint: Shortness of Breath/Dyspnea Stated Complaint: SHORT OF BREATH ED Provider: Justin Rodriguez Discharge Problem: Pleural effusion, Elevated troponin, Anemia, Renal failure, Hypoxia Patient Disposition: Admitted As Inpatient Forms Stand Alone Forms: My [facility] Prescriptions Prescriptions: No Action calcitriol 0.5 mcg capsule 1.5 mcg PO DAILY Rx Instructions: 3 capsule dose cinacalcet [Sensipar] 30 mg tablet 30 mg PO DAILY RenaPlex-D 800 mcg-12.5 mg -2,000 unit Tablet 1 tab PO DAILY amlodipine 5 mg tablet 5 mg PO DAILY hydralazine 50 mg tablet 50 mg PO QID Veltassa 8.4 gram powder in packet 8.4 g PO QAM Rx Instructions: vigorously mix in 3 ounces of water and drink..it will not dissolve megestrol [Megace] 20 mg Tablet 20 mg PO QAM losartan [Cozaar] 50 mg Tablet 50 mg PO AMHS ergocalciferol (vitamin D2) [Vitamin D2] 1,250 mcg (50,000 unit) Capsule 1,250 mcg PO WK metoprolol tartrate 25 mg tablet 25 mg PO BID allopurinol 100 mg tablet 50 mg PO DAILY carvedilol 6.25 mg tablet 6.25 mg PO AMHS Referrals Referrals: Mariel Walter DO [Outside Practitioners] -
[2022-12-05 00:23] LABS: Basophils # (auto) 0.16 K/uL (0-0.2); Basophils % (auto) 1.5 %; Eosinophils # (auto) 0.58 K/uL (0-0.50); Eosinophils % (auto) 5.3 %; Hematocrit (blood only) 27.8 % (42.0-52.0); Hemoglobin 8.6 g/dl (14.0-18.0); Immature Granulocytes # (auto) 0.04 K/uL (0.01-0.20); Immature Granulocytes % (auto) 0.4 %; Lymphocytes # (auto) 1.16 K/uL (1.2-3.4); Lymphocytes % (auto) 10.6 %; Mean Corpuscular Hgb Conc 30.9 g/dL (32.0-36.0); Mean Corpuscular Volume 87.4 fL (80.0-100.0); Mean Platelet Volume 10.5 fL (9.4-12.4); Monocytes # (auto) 1.47 K/uL (0.11-0.59); Monocytes % (auto) 13.4 %; Neutrophils # (auto) 7.53 K/uL (1.40-6.50); Neutrophils % (auto) 68.8 %; Platelet Count 393 K/uL (130-400); RDW Coefficient of Variation 18.8 % (11.5-14.5); RDW Standard Deviation 60.4 fL (36.4-46.3); Red Blood Count 3.18 M/uL (4.70-6.10); White Blood Count 10.94 K/ul (4.8-10.8)
[2022-12-05] MEDS ORDERED: FUROSEMIDE 40 MG/4 ML VIAL IV ONE (00:38)
[2022-12-05 00:39] LABS: Albumin Level 3.2 gm/dl (3.4-5.0); BUN Creatinine Ratio 10.3 (10-20); Bilirubin,Total 0.6 mg/dl (0.2-1.0); Calcium 9.3 mg/dl (8.6-10.3); Creatinine Clr Calc Pharmacy 5.1 ml/min; Est GFR (African American) 8.2 ml/min; Est GFR (Non-African American) 7.1 ml/min; Globulin 3.1 gm/dl (2.5-4.0); Potassium 5.5 mmol/L (3.5-5.1); Total Protein 6.3 gm/dl (6.0-8.3); Troponin I High Sensitivity 291.2 pg/ml (0-20)
[2022-12-05 00:40] LABS: INR 1.1 (0.9-1.1); Partial Thromboplastin Ratio 1.1; Partial Thromboplastin Time 31.6 Seconds (21.0-31.0); Prothrombin Time 11.9 Seconds (9.0-12.0)
[2022-12-05] MEDS ORDERED: ASPIRIN CHEW 324 MG PO STA (00:45)
[2022-12-05] MEDS ORDERED: IPRATROPIUM BROMIDE NEB SOLN 0.02% 2.5 ML VIAL INH STA (00:58)
[2022-12-05] MEDS ORDERED: XOPENEX/ATROVENT 1.25mg/0.5MG NEB COMBO NEB STA (00:58)
[2022-12-05] MEDS ORDERED: LEVALBUTEROL 1.25 MG/3 ML NEB NEB STA (00:58)
[2022-12-05] MEDS ORDERED: METOPROLOL TARTRATE 1 MG/ML VIAL IV STA (01:04)
[2022-12-05 01:29] LABS: iSTAT Arterial Blood Gas HCO3 35 meg/L (19-24); iSTAT Arterial Blood Gas pCO2 56 mmHg (35-46); iSTAT Arterial Blood Gas pH 7.41 (7.35-7.45); iSTAT Arterial Blood Gas pO2 70 mmHg (80-95); iSTAT Carbon Dioxide 37 mmol/L (24-31)
[2022-12-05 01:39] LABS: Magnesium 2.1 mg/dl (1.7-2.4)
[2022-12-05 02:21] LABS: Base Excess ABG 6.5 mEq/L (-9-1.8); HCO3 ABG 33 mmol/L (19-24); Oxygen Saturation ABG 95.2 % (90-95); PCO2 ABG 53 mmHg (35-46); PO2 ABG 77 mmHg (80-95)
[2022-12-05 02:39] LABS: Allen Test Pos (Pos)
[2022-12-05] MEDS ORDERED: SODIUM BICARB 8.4% INJ 50 MEQ/50 ML SYR IV STA (04:51)
[2022-12-05] MEDS ORDERED: PATIROMER CALCIUM SORBITEX 8.4 GM PACK PO STA (04:51)
--- NOTE | 2022-12-05 05:20 | History & Physical Report ---
Date of Service December 05, 2022 Assessment & Plan (1) Acute hypoxemic respiratory failure: Plan: History ESRD on HD, hx p-ANCA vasculitis as per records Pleural effusion status post recent outpatient drainage at [facility] Rule out CHF given persistent pleural effusions Hyperkalemia secondary to ESRD, home medications paroxysmal atrial flutter, patient NSR hypertension, Stable prediabetes, hemoglobin A1c 5.8 2021 chronic anemia, hemoglobin at baseline Possible functional disability PCU Supplemental O2 Stat nebs now Lasix administered at the ER likely ineffective as patient is anuric. Sodium bicarb, regular insulin, facilitate Veltassa Appropriate to hold losartan for now given hyperkalemia Nephrology consult Re: Dialysis management, hyperkalemia Update TTE PT OT eval once medically stable DVT prophylaxis with heparin subcu full code Full code Patient requesting for daughters to be updated of plan of care. Sandy Rj, [phone] Shital Cristal, [phone] Total critical care time was 45 minutes. Text document was generated using [employer] voice recognition software. It may contain grammatical or spelling errors. Kindly contact undersigned for clarification of any documentation item in question. 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 Limited history from patient secondary to language barrier. Medical history significant for paroxysmal atrial flutter, mild MR, aortic root dilatation, hypertension, hyperlipidemia, ESRD on HD, P ANCA vasculitis as per records, prediabetes, chronic anemia (baseline hemoglobin 8-10). Last [facility] confinement October 2022 for peritonitis/hemoperitoneum in the setting of poor home PD compliance. Patient transferred to [facility] where he stayed for a week. Patient underwent diagnostic laparoscopy, hemoperitoneum drainage and removal of peritoneal dialysis catheter. Patient completed vancomycin course for peritonitis. Hemodialysis initiated at [facility]. Patient noted to be hypoxemic on outpatient dialysis treatments last week. O2 sats noted to be 80s. Patient with known pleural effusions left greater than the right during recent [facility] stay per propulsion motor and generator repairer note. Patient underwent outpatient ultrasound-guided left thoracentesis at [facility] by development specialist 4 days ago. 900 cc serosanguineous colored pleural fluid drained. Patient still with SOB mostly on exertion and orthopnea symptoms at home. Denies chest pain. Dry cough symptoms. Patient consulted ER for worsening symptoms. IV Lasix administered at the ER. 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, patient born in [place] Allergies Allergy/AdvReac Type Severity Reaction Status Date / Time No Known Allergies Allergy Verified 12/05/22 00:51 Home Medications Medication Instructions Recorded Confirmed Type ergocalciferol (vitamin D2) 1,250 1,250 mcg PO WK 10/28/20 12/05/22 History mcg (50,000 unit) capsule (Vitamin D2) losartan 50 mg tablet (Cozaar) 50 mg PO AMHS 10/28/20 12/05/22 History allopurinol 100 mg tablet 50 mg PO DAILY 06/12/22 12/05/22 History carvedilol 6.25 mg tablet 6.25 mg PO AMHS 06/12/22 12/05/22 History metoprolol tartrate 25 mg tablet 25 mg PO BID 06/12/22 12/05/22 History calcitriol 0.5 mcg capsule 1.5 mcg PO DAILY 08/19/22 12/05/22 History cinacalcet 30 mg tablet (Sensipar) 30 mg PO DAILY 08/19/22 12/05/22 History vit B,C-folic ac 800 mcg-zinc 12.5 1 tab PO DAILY 08/19/22 12/05/22 History mg-selen-D3 2,000 unit-vit E tablet (RenaPlex-D) amlodipine 5 mg tablet 5 mg PO DAILY 11/10/22 12/05/22 History hydralazine 50 mg tablet 50 mg PO QID 11/10/22 12/05/22 History patiromer calcium sorbitex 8.4 8.4 g PO QAM 11/10/22 12/05/22 History gram oral powder packet (Veltassa) megestrol 20 mg tablet 20 mg PO QAM 12/05/22 12/05/22 History Past Med/Surg History Medical History Acute upper gastrointestinal bleeding Anemia Anemia of chronic disease AV fistula Benign prostatic hyperplasia with urinary obstruction Dialysis AV fistula infection Dialysis AV fistula malfunction ESRD (end stage renal disease) on dialysis PD patient; follows with Dr. Florence in [place]; 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 Fluid overload Hyperkalemia Hypertension Kidney transplant candidate reason for colonoscopy to get on list Nephrolithiasis Peritoneal dialysis catheter in place Peritoneal dialysis status per daughter--"in place with a hole" but currently not using Pleural effusion Restless leg syndrome Symptomatic anemia Surgical History H/O inguinal hernia repair History of colonoscopy History of cystoscopy History of thoracentesis History of tooth extraction Status post creation of arteriovenous fistula left arm Family History Other No family history of adverse response to anesthesia No significant family history Social History Smoking Status: Former smoker Second Hand Exposure: No; Do You Dip or Chew Tobacco: No; Hx Alcohol Use: No Hx Substance Use: No Preferred Language: Albanian Communication Ability: w/assist Communication Ability Comment: does not speak any american, only Albanian Communication Tools: IPad Heat Treating Furnace Tender Required: Yes Beliefs That Will Affect Care: None marital status: Current Living Situation: Family current occupational status: employed Feels Safe at Home: Yes Safety Concerns: Feels Safe At This Time Assistive Devices: Glasses Review of Systems Review of Systems: Could not be reliably obtained secondary to language barrier Physical Exam Physical Exam: GENERAL: Comfortable, no respiratory distress, chronically ill SKIN: Sallow, warm HEENT: alopecia, pale palpebral conjunctivae, no ptosis, dry buccal mucosa, O2 mask in place NECK : Supple, no tenderness CHEST : Decreased breath sounds, no tenderness HEART : RRR, no obvious murmurs ABDOMEN: Some distention, nontender EXTREMITIES : Minimal LE swelling, no LE tenderness, no other conspicuous deformities noted NEUROLOGIC : Coherent, no facial asymmetry, no other gross focality Results & Data Results & Data Vital Signs (Past 12 Hours) Vital Signs Temp Pulse Pulse Resp BP BP Pulse Ox 12/05/22 00:54 101 H 12/05/22 02:00 88 20 95 12/05/22 02:00 134/80 12/05/22 01:30 97 H 22 90 12/05/22 01:30 132/88 12/05/22 01:00 100 H 16 94 12/05/22 01:00 146/100 H 12/05/22 00:30 100 H 22 99 12/05/22 00:30 144/83 H 12/05/22 00:24 100 H 26 H 99 12/05/22 00:54 99 12/05/22 01:54 95 H 132/88 12/04/22 23:40 36.7 C 110 H 22 140/90 99 12/04/22 23:54 12/04/22 23:40 97 12/04/22 23:40 36.7 C 110 H 22 140/90 97 O2 Del Method O2 Flow Rate 12/05/22 00:54 12/05/22 02:00 12/05/22 02:00 12/05/22 01:30 12/05/22 01:30 12/05/22 01:00 12/05/22 01:00 12/05/22 00:30 12/05/22 00:30 12/05/22 00:24 12/05/22 00:54 Non-rebreather 10 12/05/22 01:54 12/04/22 23:40 Non-rebreather 10 12/04/22 23:54 Non-rebreather 10 12/04/22 23:40 12/04/22 23:40 Non-rebreather 10 Laboratory Results Laboratory Results WBC 10.94 K/ul (4.8-10.8) H 12/04/22 23:53 RBC 3.18 M/uL (4.70-6.10) L 12/04/22 23:53 Hgb 8.6 g/dl (14.0-18.0) L 12/04/22 23:53 Hct 27.8 % (42.0-52.0) L 12/04/22 23:53 MCV 87.4 fL (80.0-100.0) 12/04/22 23:53 MCH 27.0 pg (25.0-34.0) 12/04/22 23:53 MCHC 30.9 g/dL (32.0-36.0) L 12/04/22 23:53 RDW Std Deviation 60.4 fL (36.4-46.3) H 12/04/22 23:53 RDW Coeff of Diamond 18.8 % (11.5-14.5) H 12/04/22 23:53 Plt Count 393 K/uL (130-400) 12/04/22 23:53 MPV 10.5 fL (9.4-12.4) 12/04/22 23:53 Immature Gran % (Auto) 0.4 % 12/04/22 23:53 Neut % (Auto) 68.8 % 12/04/22 23:53 Lymph % (Auto) 10.6 % 12/04/22 23:53 [place] % (Auto) 13.4 % 12/04/22 23:53 Eos % (Auto) 5.3 % 12/04/22 23:53 Baso % (Auto) 1.5 % 12/04/22 23:53 Neut # (Auto) 7.53 K/uL (1.40-6.50) H 12/04/22 23:53 Lymph # (Auto) 1.16 K/uL (1.2-3.4) L 12/04/22 23:53 [place] # (Auto) 1.47 K/uL (0.11-0.59) H 12/04/22 23:53 Eos # (Auto) 0.58 K/uL (0-0.50) H 12/04/22 23:53 Baso # (Auto) 0.16 K/uL (0-0.2) 12/04/22 23:53 Immature Gran # (Auto) 0.04 K/uL (0.01-0.20) 12/04/22 23:53 PT 11.9 Seconds (9.0-12.0) 12/04/22 23:53 INR 1.1 (0.9-1.1) 12/04/22 23:53 APTT 31.6 Seconds (21.0-31.0) H 12/04/22 23:53 PTT Ratio 1.1 12/04/22 23:53 POC pH 7.41 (7.35-7.45) 12/05/22 01:16 POC pCO2 56 mmHg (35-46) H 12/05/22 01:16 POC pO2 70 mmHg (80-95) L 12/05/22 01:16 POC HCO3 35 lalo/L (19-24) H 12/05/22 01:16 POC Total CO2 37 mmol/L (24-31) H 12/05/22 01:16 POC Base Excess 11.0 lalo/L (-9-1.8) H 12/05/22 01:16 ABG pH 7.40 (7.35-7.45) 12/05/22 02:17 ABG pCO2 53 mmHg (35-46) H 12/05/22 02:17 ABG pO2 77 mmHg (80-95) L 12/05/22 02:17 ABG HCO3 33 mmol/L (19-24) H 12/05/22 02:17 POC ABG O2 Sat 93.0 % (90-95) 12/05/22 01:16 ABG O2 Saturation 95.2 % (90-95) H 12/05/22 02:17 ABG Base Excess 6.5 mEq/L (-9-1.8) H 12/05/22 02:17 Dharmesh Test Pos (Pos) 12/05/22 02:17 Oxygen Given 10L 12/05/22 02:17 Sodium 140 mmol/L (136-145) 12/04/22 23:53 Potassium 5.5 mmol/L (3.5-5.1) H 12/04/22 23:53 Chloride 96 mmol/L (98-107) L 12/04/22 23:53 Carbon Dioxide 31 mmol/L (21-32) 12/04/22 23:53 Anion Gap 13 (3-11) H 12/04/22 23:53 BUN 74 mg/dl (6-23) H 12/04/22 23:53 Creatinine 7.17 mg/dl (0.6-1.4) H* 12/04/22 23:53 Est Cr Clr Drug Dosing 5.1 ml/min 12/04/22 23:53 Est GFR ( Amer) 8.2 ml/min 12/04/22 23:53 Est GFR (Non-Af Amer) 7.1 ml/min 12/04/22 23:53 BUN/Creatinine Ratio 10.3 (10-20) 12/04/22 23:53 Glucose 75 mg/dl (70-99(Fasting)) 12/04/22 23:53 Calcium 9.3 mg/dl (8.6-10.3) 12/04/22 23:53 Magnesium 2.1 mg/dl (1.7-2.4) 12/04/22 23:53 Total Bilirubin 0.6 mg/dl (0.2-1.0) 12/04/22 23:53 AST 52 U/L (13-39) H 12/04/22 23:53 ALT 27 U/L (7-52) 12/04/22 23:53 Alkaline Phosphatase 86 U/L (34-104) 12/04/22 23:53 Troponin I High Sens 291.2 pg/ml (0-20) H* 12/04/22 23:53 B-Natriuretic Peptide > 4700 pg/ml (0-100) H 12/04/22 23:53 Total Protein 6.3 gm/dl (6.0-8.3) 12/04/22 23:53 Albumin 3.2 gm/dl (3.4-5.0) L 12/04/22 23:53 Globulin 3.1 gm/dl (2.5-4.0) 12/04/22 23:53 Albumin/Globulin Ratio 1.0 (0.9-2) 12/04/22 23:53 SARS-CoV-2, RNA, NAAT NEGATIVE (NEGATIVE) 12/05/22 01:05 Diagnostic Findings Chest x-ray as per my interpretation cardiomegaly, congestion, bilateral pleural effusions EKG as per my interpretation : Rate 105, sinus tachycardia, normal axis, LVH, T wave abnormalities inferior leads
[2022-12-05] MEDS ORDERED: DEXTROSE 50% 50 ML SYRINGE IV ONE (05:25)
[2022-12-05] MEDS ORDERED: INSULIN HUMAN REGULAR PER UNIT 5 UNITS in SYRINGE 4.95 ML IV STA (05:39)
[2022-12-05] MEDS ORDERED: SODIUM BICARBONATE 8.4% INJ 50 MEQ/50 ML VIAL ONE (07:16)
--- NOTE | 2022-12-05 07:16 | XRay Report ---
SINGLE VIEW CHEST CLINICAL HISTORY: Dyspnea. FINDINGS: An AP, portable, upright chest radiograph is compared to study dated 11/10/2022 and correlat ed with chest CT dated 09/11/2022. The examination is degraded by portable technique and apical lordot ic positioning. The heart is enlarged noting atherosclerotic calcification of the thoracic aorta. The re is pulmonary vascular congestion with evidence of interstitial edema. There are layering pleural e ffusions with dependent consolidation. No pneumothorax is seen. The skeletal structures are osteopeni c. The bony thorax is grossly intact. Degenerative change is noted in the shoulders. IMPRESSION: 1. Cardiomegaly with evidence of congestive failure and pulmonary edema. Radiographic follow-up to re solution is recommended. 2. Layering pleural effusions with dependent consolidation. ACT 112: Negative or not required by law. Electronically signed by: Tone Mccain M.D. 12/05/2022 7:14 AM
[2022-12-05] MEDS ORDERED: SODIUM BICARB 8.4% INJ 50 MEQ/50 ML SYR IV ONE (07:17)
[2022-12-05] MEDS ORDERED: traMADol HCL 50 MG TABLET PO PRN (08:44)
[2022-12-05] MEDS ORDERED: ACETAMINOPHEN 325 MG TAB PO PRN (08:44)
[2022-12-05] MEDS ORDERED: PROMETHAZINE HCL 6.25 MG in SODIUM CHLORIDE 0.9% 50 ML IV PRN (08:44)
--- NOTE | 2022-12-05 08:49 | Electrocardiogram Report ---
Test Reason : Blood Pressure : / mmHG Vent. Rate : 105 BPM Atrial Rate : 105 BPM P-R Int : 172 ms QRS Dur : 088 ms QT Int : 342 ms P-R-T Axes : 054 005 141 degrees QTc Int : 452 ms Sinus tachycardia Possible Left atrial enlargement Left ventricular hypertrophy with repolarization abnormality vs ischemia Possible Inferior infarct (cited on or before 11-SEP-2022) Abnormal ECG When compared with ECG of 10-NOV-2022 07:21, Premature atrial complexes are no longer Present T wave inversion no longer evident in Lateral leads Confirmed by Prabhu Abrams ([id number]) on 12/05/2022 8:49:31 AM Referred By: REFERRED SELF Confirmed By:Juancho Abrams
[2022-12-05] MEDS ORDERED: carvediloL 6.25 MG TAB PO SCH (09:00)
[2022-12-05] MEDS ORDERED: METOPROLOL TARTRATE 25 MG TAB PO SCH (09:00)
[2022-12-05] MEDS ORDERED: SODIUM CHLORIDE 0.9% 1000ML 1,000 ML IV PRN (09:32)
[2022-12-05] MEDS ORDERED: HEPARIN SOD (PORCINE) 1000 UNIT/ML IV ONE (09:32)
[2022-12-05 09:33] LABS: Basophils # (auto) 0.16 K/uL (0-0.2); Basophils % (auto) 1.8 %; Eosinophils # (auto) 0.44 K/uL (0-0.50); Eosinophils % (auto) 4.8 %; Hematocrit (blood only) 27.3 % (42.0-52.0); Hemoglobin 8.3 g/dl (14.0-18.0); Immature Granulocytes # (auto) 0.04 K/uL (0.01-0.20); Immature Granulocytes % (auto) 0.4 %; Lymphocytes # (auto) 1.32 K/uL (1.2-3.4); Lymphocytes % (auto) 14.5 %; Mean Corpuscular Hemoglobin 26.9 pg (25.0-34.0); Mean Corpuscular Hgb Conc 30.4 g/dL (32.0-36.0); Mean Corpuscular Volume 88.6 fL (80.0-100.0); Mean Platelet Volume 10.2 fL (9.4-12.4); Monocytes # (auto) 1.64 K/uL (0.11-0.59); Neutrophils # (auto) 5.52 K/uL (1.40-6.50); Neutrophils % (auto) 60.5 %; Platelet Count 320 K/uL (130-400); RDW Coefficient of Variation 18.6 % (11.5-14.5); RDW Standard Deviation 60.5 fL (36.4-46.3); Red Blood Count 3.08 M/uL (4.70-6.10); White Blood Count 9.12 K/ul (4.8-10.8)
[2022-12-05 09:49] LABS: BUN Creatinine Ratio 10.1 (10-20); Calcium 9.2 mg/dl (8.6-10.3); Est GFR (African American) 7.1 ml/min; Est GFR (Non-African American) 6.1 ml/min; Potassium 4.8 mmol/L (3.5-5.1)
[2022-12-05] MEDS: allopurinoL 100 MG TAB PO SCH (09:57)
[2022-12-05] MEDS: HEPARIN SOD 5,000 UNIT/0.5 ML VIAL SQ SCH ×2 (09:57→18:08)
[2022-12-05] MEDS: amLODIPine BESYLATE 5 MG TAB PO SCH (09:57)
[2022-12-05] MEDS: MEGESTROL ACETATE 40 MG TAB PO SCH (09:58)
[2022-12-05] MEDS: NEPHROCAPS PO SCH (09:58)
[2022-12-05] MEDS: hydrALAZINE TAB 50 MG TAB PO SCH ×4 (09:59→20:37)
[2022-12-05] MEDS: CINACALCET HCL 30 MG TAB PO SCH (09:59)
[2022-12-05] MEDS: CALCITRIOL 0.25 MCG CAPSULE PO SCH (10:00)
[2022-12-05] MEDS ORDERED: EPOETIN ALFA 10,000 UNITS/ML VIAL IV ONE (11:00)
--- NOTE | 2022-12-05 11:28 | Communication Note ---
Patient seen and examined Used [place] interpretation services Reports low oxygen sat, SOB and cough (especially with movement) at home prior to presentation Denied other complaints Currently on oxymask. Reports SOB improved with oxymask. Was not on oxygen at home Reported left thoracentesis about 5 days ago Also had daughter Sandy on the phone CXR showing Cardiomegaly, pulm edema, B/l Pleural effusion, with dependent consolidation Echo showed EF 40-45%, mild global hypokinesis of LV, mod conc LVH, trace MR, mild dil RV, RVSP 40-50 Patient is volume overloaded. Acute resp failure due to pulm edema, pleural effusion Has new systolic heart failure compared to Echo from 05/2022 Consult cardiology Volume mgt with HD Nephro on board Updated patient and daughter about new findings Other plans as detailed in H/P this AM
--- NOTE | 2022-12-05 15:54 | Cardiology Consultation ---
Date of Consultation December 05, 2022 Assessment & Plan (1) Pleural effusion: (2) Acute hypoxemic respiratory failure: (3) Elevated troponin: (4) Renal failure: Plan Patient is a complex 67-year-old male with end-stage renal disease on replacement therapy. Recent change from peritoneal dialysis to hemodialysis given acute peritonitis, obstruction of peritoneal catheter. Presents now with bilateral pleural effusions and hypoxic respiratory failure in setting of volume overload Echocardiogram demonstrates mildly decreased LV systolic function and troponins are elevated without acute EKG change Plan: Agree with aggressive dialysis with repeat thoracentesis if necessary Consider reducing antihypertensives to allow if necessary Per current med rec's not consistent with outpatient records. Uncertain why patient is on 2 beta-blockers with carvedilol and metoprolol succinate (not metoprolol tartrate) but previously prescribed during hospitalization in October. Clonidine patch listed in outpatient records as part of list Would recommend simplifying beta-osei therapies, discontinue carvedilol, continue metoprolol succinate 25 mg twice daily with likely upward titration Currently no symptoms to suggest acute myocardial ischemia though el evated troponin concerning if symptoms develop. Repeat EKG in a.m. History of Present Illness Reason for Consultation: Bilateral pleural effusions, elevated troponin Requesting Physician: Dr Rush Attending Physician: Celestina Rush MD History of Present Illness Patient is a 67-year-old Ethiopian-speaking male seen and examined in dialysis. Information gained from discussion with patient briefly case sealer not available, review of extensive inpatient and outpatient records. 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 Longstanding hypertension 3. Paroxysmal atrial flutter per chart review 4. Past pericardial effusion status post pericardiocentesis 5. Acute peritonitis 11/10/2022 Records reflect hospitalization at [facility] then transferred to [facility] while there patient was treated for peritonitis including diagnostic laparoscopy, drainage of hemoperitoneum and removal of peritoneal dialysis catheter. He returned on 12/02/2019 and underwent left thoracentesis with residual right pleural effusion noted. Procedure performed due to hypoxia He re presented to [facility] with complaints of persistent dyspnea and oxygen demands on presentation. Chest x-ray demonstrates bilateral pleural effusions Patient limited in ability to relate symptoms but notes no chest pain or chest discomfort tachypalpitations or dizziness Currently afebrile Allergies Allergy/AdvReac Type Severity Reaction Status Date / Time No Known Allergies Allergy Verified 12/05/22 00:51 Home Medications Medication Instructions Recorded Confirmed Type ergocalciferol (vitamin D2) 1,250 1,250 mcg PO WK 10/28/20 12/05/22 History mcg (50,000 unit) capsule (Vitamin D2) losartan 50 mg tablet (Cozaar) 50 mg PO AMHS 10/28/20 12/05/22 History allopurinol 100 mg tablet 50 mg PO DAILY 06/12/22 12/05/22 History carvedilol 6.25 mg tablet 6.25 mg PO AMHS 06/12/22 12/05/22 History metoprolol tartrate 25 mg tablet 25 mg PO BID 06/12/22 12/05/22 History calcitriol 0.5 mcg capsule 1.5 mcg PO DAILY 08/19/22 12/05/22 History cinacalcet 30 mg tablet (Sensipar) 30 mg PO DAILY 08/19/22 12/05/22 History vit B,C-folic ac 800 mcg-zinc 12.5 1 tab PO DAILY 08/19/22 12/05/22 History mg-selen-D3 2,000 unit-vit E tablet (RenaPlex-D) amlodipine 5 mg tablet 5 mg PO DAILY 11/10/22 12/05/22 History hydralazine 50 mg tablet 50 mg PO QID 11/10/22 12/05/22 History patiromer calcium sorbitex 8.4 8.4 g PO QAM 11/10/22 12/05/22 History gram oral powder packet (Veltassa) megestrol 20 mg tablet 20 mg PO QAM 12/05/22 12/05/22 History Patient History Medical History Acute upper gastrointestinal bleeding Anemia Anemia of chronic disease AV fistula Benign prostatic hyperplasia with urinary obstruction Dialysis AV fistula infection Dialysis AV fistula malfunction ESRD (end stage renal disease) on dialysis PD patient; follows with Dr. Florence in [place]; 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 Fluid overload Hyperkalemia Hypertension Kidney transplant candidate reason for colonoscopy to get on list Nephrolithiasis Peritoneal dialysis catheter in place Peritoneal dialysis status per daughter--"in place with a hole" but currently not using Pleural effusion Restless leg syndrome Symptomatic anemia Surgical History H/O inguinal hernia repair History of colonoscopy History of cystoscopy History of thoracentesis History of tooth extraction Status post creation of arteriovenous fistula left arm Family History Other No family history of adverse response to anesthesia No significant family history Social History Smoking Status: Former smoker Second Hand Exposure: No; Do You Dip or Chew Tobacco: No; Hx Alcohol Use: No Hx Substance Use: No Preferred Language: Ethiopian Communication Ability: w/assist Communication Ability Comment: does not speak any german, only Ethiopian Communication Tools: IPad Health Inspector Food Required: Yes Beliefs That Will Affect Care: None marital status: Current Living Situation: Family current occupational status: employed Feels Safe at Home: Yes Safety Concerns: Feels Safe At This Time Assistive Devices: Glasses Review of Systems Review of Systems: All systems reviewed & are unremarkable except as noted in HPI & below Physical Exam Constitutional: + thin; no acute distress Eyes: PERRL, conjunctivae normal, anicteric sclerae ENMT: external ear and nose normal, oropharynx normal Neck: trachea midline, no thyromegaly Cardiovascular: Rate/Rhythm: regular rate and regular rhythm Heart Sounds: no murmur Vessels: no JVD Extremities: + edema Gastrointestinal (Abdomen): Percussion/Palpation: abdomen soft; abdomen nontender Results & Data Vital Signs (Past 12 Hours) Vital Signs Temp Pulse Pulse Resp BP BP Pulse Ox 12/05/22 11:49 36.6 C 78 19 140/77 95 12/05/22 08:44 36.6 C 84 16 172/88 H 100 12/05/22 08:33 36.6 C 83 17 172/88 H 99 12/05/22 08:50 85 12/05/22 08:49 12/05/22 08:00 79 10 L 94 12/05/22 07:30 83 14 91 12/05/22 07:00 82 12 12/05/22 07:00 132/70 12/05/22 06:30 83 13 12/05/22 06:00 79 12 94 05/15/23 06:00 160/95 H 12/05/22 05:30 84 13 12/05/22 05:00 91 H 19 90 12/05/22 05:00 132/76 12/05/22 04:30 85 12 90 12/05/22 04:30 142/83 H 12/05/22 04:00 85 13 90 12/05/22 04:00 142/82 H 12/05/22 03:30 87 12 93 12/05/22 03:30 132/78 12/05/22 07:03 82 12/05/22 04:00 85 O2 Del Method O2 Flow Rate 12/05/22 11:49 Oxymask 7 12/05/22 08:44 Oxymask 7 12/05/22 08:33 Oxymask 7 12/05/22 08:50 12/05/22 08:49 Oxymask 7 12/05/22 08:00 7 12/05/22 07:30 7 12/05/22 07:00 7 12/05/22 07:00 12/05/22 06:30 12/05/22 06:00 7 12/05/22 06:00 12/05/22 05:30 12/05/22 05:00 7 12/05/22 05:00 12/05/22 04:30 7 12/05/22 04:30 12/05/22 04:00 7 12/05/22 04:00 12/05/22 03:30 5 12/05/22 03:30 12/05/22 07:03 12/05/22 04:00 Laboratory Results Laboratory Results - last 24 hr 12/04/22 12/04/22 12/04/22 23:53 23:53 23:53 WBC 10.94 H RBC 3.18 L Hgb 8.6 L Hct 27.8 L MCV 87.4 MCH 27.0 MCHC 30.9 L RDW Std Deviation 60.4 H RDW Coeff of Diamond 18.8 H Plt Count 393 MPV 10.5 Immature Gran % (Auto) 0.4 Neut % (Auto) 68.8 Lymph % (Auto) 10.6 [place] % (Auto) 13.4 Eos % (Auto) 5.3 Baso % (Auto) 1.5 Neut # (Auto) 7.53 H Lymph # (Auto) 1.16 L [place] # (Auto) 1.47 H Eos # (Auto) 0.58 H Baso # (Auto) 0.16 Immature Gran # (Auto) 0.04 PT INR APTT PTT Ratio POC pH POC pCO2 POC pO2 POC HCO3 POC Total CO2 POC Base Excess ABG pH ABG pCO2 ABG pO2 ABG HCO3 POC ABG O2 Sat ABG O2 Saturation ABG Base Excess Dharmesh Test Oxygen Given Sodium 140 Potassium 5.5 H Chloride 96 L Carbon Dioxide 31 Anion Gap 13 H BUN 74 H Creatinine 7.17 H* Est Cr Clr Drug Dosing 5.1 Est GFR ( Amer) 8.2 Est GFR (Non-Af Amer) 7.1 BUN/Creatinine Ratio 10.3 Glucose 75 POC Glucose Calcium 9.3 Magnesium 2.1 Total Bilirubin 0.6 AST 52 H ALT 27 Alkaline Phosphatase 86 Troponin I High Sens 291.2 H* B-Natriuretic Peptide > 4700 H Total Protein 6.3 Albumin 3.2 L Globulin 3.1 Albumin/Globulin Ratio 1.0 Hep Bs Antigen Hep Bs Ag Confirmation Hep Bs Antibody, Quant SARS-CoV-2, RNA, NAAT 12/04/22 12/04/22 12/05/22 23:53 23:53 01:05 WBC RBC Hgb Hct MCV MCH MCHC RDW Std Deviation RDW Coeff of Diamond Plt Count MPV Immature Gran % (Auto) Neut % (Auto) Lymph % (Auto) [place] % (Auto) Eos % (Auto) Baso % (Auto) Neut # (Auto) Lymph # (Auto) [place] # (Auto) Eos # (Auto) Baso # (Auto) Immature Gran # (Auto) PT 11.9 INR 1.1 APTT 31.6 H PTT Ratio 1.1 POC pH POC pCO2 POC pO2 POC HCO3 POC Total CO2 POC Base Excess ABG pH ABG pCO2 ABG pO2 ABG HCO3 POC ABG O2 Sat ABG O2 Saturation ABG Base Excess Dharmesh Test Oxygen Given Sodium Potassium Chloride Carbon Dioxide Anion Gap BUN Creatinine Est Cr Clr Drug Dosing Est GFR ( Amer) Est GFR (Non-Af Amer) BUN/Creatinine Ratio Glucose POC Glucose Calcium Magnesium Total Bilirubin AST ALT Alkaline Phosphatase Troponin I High Sens B-Natriuretic Peptide Total Protein Albumin Globulin Albumin/Globulin Ratio Hep Bs Antigen Pending Hep Bs Ag Confirmation Pending Hep Bs Antibody, Quant Pending SARS-CoV-2, RNA, NAAT NEGATIVE 05/12/05/22 12/05/22 01:16 02:17 07:24 WBC RBC Hgb Hct MCV MCH MCHC RDW Std Deviation RDW Coeff of Diamond Plt Count MPV Immature Gran % (Auto) Neut % (Auto) Lymph % (Auto) [place] % (Auto) Eos % (Auto) Baso % (Auto) Neut # (Auto) Lymph # (Auto) [place] # (Auto) Eos # (Auto) Baso # (Auto) Immature Gran # (Auto) PT INR APTT PTT Ratio POC pH 7.41 POC pCO2 56 H POC pO2 70 L POC HCO3 35 H POC Total CO2 37 H POC Base Excess 11.0 H ABG pH 7.40 ABG pCO2 53 H ABG pO2 77 L ABG HCO3 33 H POC ABG O2 Sat 93.0 ABG O2 Saturation 95.2 H ABG Base Excess 6.5 H Dharmesh Test Pos Oxygen Given 10L Sodium Potassium Chloride Carbon Dioxide Anion Gap BUN Creatinine Est Cr Clr Drug Dosing Est GFR ( Amer) Est GFR (Non-Af Amer) BUN/Creatinine Ratio Glucose POC Glucose 125 H Calcium Magnesium Total Bilirubin AST ALT Alkaline Phosphatase Troponin I High Sens B-Natriuretic Peptide Total Protein Albumin Globulin Albumin/Globulin Ratio Hep Bs Antigen Hep Bs Ag Confirmation Hep Bs Antibody, Quant SARS-CoV-2, RNA, NAAT 12/05/22 12/05/22 12/05/22 09:09 09:09 09:09 WBC 9.12 RBC 3.08 L Hgb 8.3 L Hct 27.3 L MCV 88.6 MCH 26.9 MCHC 30.4 L RDW Std Deviation 60.5 H RDW Coeff of Diamond 18.6 H Plt Count 320 MPV 10.2 Immature Gran % (Auto) 0.4 Neut % (Auto) 60.5 Lymph % (Auto) 14.5 [place] % (Auto) 18.0 Eos % (Auto) 4.8 Baso % (Auto) 1.8 Neut # (Auto) 5.52 Lymph # (Auto) 1.32 [place] # (Auto) 1.64 H Eos # (Auto) 0.44 Baso # (Auto) 0.16 Immature Gran # (Auto) 0.04 PT INR APTT PTT Ratio POC pH POC pCO2 POC pO2 POC HCO3 POC Total CO2 POC Base Excess ABG pH ABG pCO2 ABG pO2 ABG HCO3 POC ABG O2 Sat ABG O2 Saturation ABG Base Excess Dharmesh Test Oxygen Given Sodium 142 Potassium 4.8 Chloride 96 L Carbon Dioxide 32 Anion Gap 14 H BUN 82 H Creatinine 8.15 H* D Est Cr Clr Drug Dosing 9.0 Est GFR ( Amer) 7.1 Est GFR (Non-Af Amer) 6.1 BUN/Creatinine Ratio 10.1 Glucose 55 L POC Glucose Calcium 9.2 Magnesium Total Bilirubin AST ALT Alkaline Phosphatase Troponin I High Sens 1593.8 H* D B-Natriuretic Peptide Total Protein Albumin Globulin Albumin/Globulin Ratio Hep Bs Antigen Hep Bs Ag Confirmation Hep Bs Antibody, Quant SARS-CoV-2, RNA, NAAT Diagnostic Findings Echocardiogram 12/05/2022 Moderate left ventricular hypertrophy Mild diffuse hypokinesis EF 40-45% subtle inferior hypokinesis not excluded Aortic calcification without stenosis Right ventricular and right atrial dilatation Mild to moderate elevation in pulmonary pressure No significant pericardial effusion Bilateral pleural effusion ECG Additional Comments: EKG 12/04/2022 on acute presentation 04-DEC-2022 23:52:13 [facility]-EDSTAT ROUTINE RETRIEVAL Sinus tachycardia Possible Left atrial enlargement Left ventricular hypertrophy with repolarization abnormality vs ischemia Possible Inferior infarct (cited on or before 11-SEP-2022) Abnormal ECG When compared with ECG of 10-NOV-2022 07:21, Premature atrial complexes are no longer Present T wave inversion no longer evident in Lateral leads, heart rate 105
[2022-12-05] MEDS: HEPARIN SOD (PORCINE) 1000 UNIT/ML IV SCH (16:29)
--- NOTE | 2022-12-05 17:11 | Nephrology Consultation ---
Date of Consultation December 05, 2022 Assessment & Plan (1) ESRD (end stage renal disease) on dialysis: HD today w/ goal 4.5 L fluid removal as tolerated; plan daily dialysis until better stabilized (2) Acute hypoxemic respiratory failure: may need consideration for repeat thoracenteses >aggressive fluid removal w/ HD -doubt any role for ANCA here but could consider (3) Heart failure with acute decompensation, type unknown: fluid removal w/ HD -f/u cardiology recs History of Present Illness Reason for Consultation: ESRD on dialysis Requesting Physician: Dr De Los Santos Attending Physician: Celestina Rush MD History of Present Illness 67 y/o M whom I'm asked to see for dialysis needs came to ER overnight d/t acutely worsened dyspnea and found to be hypoxic w/ BL pleural effusions. PMH to see for PD peritonitis came to ER today for evaluation of LLQ abdominal pain, bloody peritoneal dialysate, and inability to drain his PD fluid this AM. When we went to collect specimens to evaluate for PD peritonitis, his PD catheter neither aspirates nor flushes. PMH includes ESRD since 2018 from presumptive ANCA vasculitis which was already advanced on presentation, longstanding HTN, HL; longstanding BL pleural effusions. ANCA was confined to kidneys; no pulmonary manifestations; by the time he presented kidneys were scarred down; no treatment indicated. He also had Staph aureus PD peritonitis last month associated with catheter malfunction; found to have severe adhesions when PD cath removed and will no longer be a PD candidate. He completed prescribed course of abtx for peritonitis. He has been dialyzing under my care at [facility]. He had been cutting 4hr txs short until 11/28 when after family conference he agreed to stay full tx. He came to dialysis hypoxic last Monday and Monday at the start of tx, new for him. We removed fluid as tolerated and hypoxia resolved by end of treatment. I arran ged for urgent OP thoracentesis last week > w/ 900 mL removed from L chest and plan to do R this week. Pt developed worsening dyspnea starting 12/03 and came to ER yesterday. Noted on arrival to have large BL pleural effusions, hypoxia needing 6-7L oxymask, and TTE w/ EF newly worsened 65% > 45%. feels breathing a bit better but still dyspneic. cough w/ exertion and exertional dyspnea. no f/c, no n/v/d/abd pain. he is anuric. no chest pain. no bleeding. Allergies Allergy/AdvReac Type Severity Reaction Status Date / Time No Known Allergies Allergy Verified 12/05/22 00:51 Home Medications Medication Instructions Recorded Confirmed Type ergocalciferol (vitamin D2) 1,250 1,250 mcg PO WK 10/28/20 12/05/22 History mcg (50,000 unit) capsule (Vitamin D2) losartan 50 mg tablet (Cozaar) 50 mg PO AMHS 10/28/20 12/05/22 History allopurinol 100 mg tablet 50 mg PO DAILY 06/12/22 12/05/22 History carvedilol 6.25 mg tablet 6.25 mg PO AMHS 06/12/22 12/05/22 History metoprolol tartrate 25 mg tablet 25 mg PO BID 06/12/22 12/05/22 History calcitriol 0.5 mcg capsule 1.5 mcg PO DAILY 08/19/22 12/05/22 History cinacalcet 30 mg tablet (Sensipar) 30 mg PO DAILY 08/19/22 12/05/22 History vit B,C-folic ac 800 mcg-zinc 12.5 1 tab PO DAILY 08/19/22 12/05/22 History mg-selen-D3 2,000 unit-vit E tablet (RenaPlex-D) amlodipine 5 mg tablet 5 mg PO DAILY 11/10/22 12/05/22 History hydralazine 50 mg tablet 50 mg PO QID 11/10/22 12/05/22 History patiromer calcium sorbitex 8.4 8.4 g PO QAM 11/10/22 12/05/22 History gram oral powder packet (Veltassa) megestrol 20 mg tablet 20 mg PO QAM 12/05/22 12/05/22 History Patient History Medical History Acute upper gastrointestinal bleeding Anemia Anemia of chronic disease AV fistula Benign prostatic hyperplasia with urinary obstruction Dialysis AV fistula infection Dialysis AV fistula malfunction ESRD (end stage renal disease) on dialysis HD patient follows w/ Dr Munson [facility] 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 Fluid overload Hyperkalemia Hypertension Kidney transplant candidate reason for colonoscopy to get on list Nephrolithiasis Peritoneal dialysis catheter in place Peritoneal dialysis status per daughter--"in place with a hole" but currently not using Pleural effusion Restless leg syndrome Symptomatic anemia Surgical History H/O inguinal hernia repair History of colonoscopy History of cystoscopy History of thoracentesis History of tooth extraction Status post creation of arteriovenous fistula left arm Family History Other No family history of adverse response to anesthesia No significant family history Social History Smoking Status: Former smoker Second Hand Exposure: No; Do You Dip or Chew Tobacco: No; Hx Alcohol Use: No Hx Substance Use: No Preferred Language: Latvian Communication Ability: w/assist Communication Ability Comment: does not speak any finnish, only Latvian Communication Tools: IPad Supervisor [employer] Vehicle Required: Yes Beliefs That Will Affect Care: None marital status: Current Living Situation: Family current occupational status: employed Feels Safe at Home: Yes Safety Concerns: Feels Safe At This Time Assistive Devices: Glasses Review of Systems Review of Systems: All systems reviewed & are unremarkable except as noted in HPI & below Physical Exam 2 Constitutional: well developed, well nourished, + cachectic, + frail appearing and cooperative Eyes: EOM intact bilaterally ENMT: Ears: no external ear abnormality Nose: no external nose abnormality Mouth: + dry oral mucous membranes Neck: no nuchal rigidity Respiratory: + labored breathing (slight), able to speak in complete sentences and + paradoxical thoraco-abdominal movement Auscultation: + diminished lung sounds (anterior exam on dialysis) Cardiovascular: RRR, no murmur, no edema Extremities: + AV fistula Gastrointestinal (Abdomen): Inspection/Auscultation: normal bowel sounds Percussion/Palpation: abdomen soft; abdomen nontender Musculoskeletal: Extremities: strength 5/5 throughout Skin: no rashes, warm and dry Neurologic: sim, fluent speech, no tremor Psychiatric: Orientation: alert and oriented x 3 Results & Data Vital Signs (Past 12 Hours) Vital Signs Temp Pulse Pulse Resp BP BP Pulse Ox 12/05/22 14:47 36.7 C 12/05/22 15:11 67 12/05/22 11:49 36.6 C 78 19 140/77 95 12/05/22 08:44 36.6 C 84 16 172/88 H 100 12/05/22 08:33 36.6 C 83 17 172/88 H 99 12/05/22 08:50 85 12/05/22 08:49 12/05/22 08:00 79 10 L 94 12/05/22 07:30 83 14 91 12/05/22 07:00 82 12 12/05/22 07:00 132/70 12/05/22 06:30 83 13 12/05/22 06:00 79 12 94 12/05/22 06:00 160/95 H 12/05/22 05:30 84 13 12/05/22 05:00 91 H 19 90 12/05/22 05:00 132/76 12/05/22 07:03 82 O2 Del Method O2 Flow Rate 12/05/22 14:47 12/05/22 15:11 12/05/22 11:49 Oxymask 7 12/05/22 08:44 Oxymask 7 12/05/22 08:33 Oxymask 7 12/05/22 08:50 12/05/22 08:49 Oxymask 7 12/05/22 08:00 7 12/05/22 07:30 7 12/05/22 07:00 7 12/05/22 07:00 12/05/22 06:30 12/05/22 06:00 7 12/05/22 06:00 12/05/22 05:30 12/05/22 05:00 7 12/05/22 05:00 12/05/22 07:03 Laboratory Results 12/05/22 09:09 12/05/22 09:09
--- NOTE | 2022-12-05 19:17 | Dialysis Progress Note ---
Date of Service December 05, 2022 Assessment & Plan (1) ESRD (end stage renal disease) on dialysis: Plan: HD today w/ goal 4.5 L fluid removal as tolerated; plan daily dialysis until better stabilized > next HD tomorrow hoping that anemia will improve some with UF >iron studie sfor AM and check phos (2) Acute hypoxemic respiratory failure: Plan: may need consideration for repeat thoracenteses >aggressive fluid removal w/ HD -doubt any role for ANCA here but could consider if UF does not improve status (3) Heart failure with acute decompensation, type unknown: Plan: fluid removal w/ HD -f/u cardiology recs Admission and Anticipated Discharge Date Admission Date: December 05, 2022 Subjective pt seen and evaluated on dialysis at approximately 1530. tolerating procedure; rationale for needing more UF explained. feels breathing a bit better Review of Systems Review of Systems: All systems reviewed & are unremarkable except as noted in Subjective Physical Exam Constitutional: well developed, well nourished, + cachectic, + frail appearing and cooperative Eyes: EOM intact bilaterally ENMT: Ears: no external ear abnormality Nose: no external nose abnormality Mouth: + dry oral mucous membranes Neck: no nuchal rigidity Respiratory: + labored breathing (slight), able to speak in complete sentences and + paradoxical thoraco-abdominal movement Auscultation: + diminished lung sounds (anterior exam on dialysis) Cardiovascular: RRR, no murmur, no edema Extremities: + AV fistula Gastrointestinal (Abdomen): Inspection/Auscultation: normal bowel sounds Percussion/Palpation: abdomen soft; abdomen nontender Musculoskeletal: Extremities: strength 5/5 throughout Skin: no rashes, warm and dry Psychiatric: Orientation: alert and oriented x 3 Results & Data Vital Signs (Past 12 Hours) Vital Signs Temp Pulse Pulse Resp BP BP Pulse Ox 12/05/22 17:00 71 120/78 12/05/22 16:30 71 121/74 12/05/22 16:00 73 126/78 12/05/22 15:30 68 129/83 12/05/22 15:00 68 142/82 H 12/05/22 14:47 36.7 C 12/05/22 15:11 67 12/05/22 11:49 36.6 C 78 19 140/77 95 12/05/22 08:44 36.6 C 84 16 172/88 H 100 05/15/23 08:33 36.6 C 83 17 172/88 H 99 12/05/22 08:50 85 12/05/22 08:49 12/05/22 08:00 79 10 L 94 12/05/22 07:30 83 14 91 O2 Del Method O2 Flow Rate 12/05/22 17:00 12/05/22 16:30 12/05/22 16:00 12/05/22 15:30 12/05/22 15:00 12/05/22 14:47 12/05/22 15:11 12/05/22 11:49 Oxymask 7 12/05/22 08:44 Oxymask 7 12/05/22 08:33 Oxymask 7 12/05/22 08:50 12/05/22 08:49 Oxymask 7 12/05/22 08:00 7 12/05/22 07:30 7 Laboratory Results 12/05/22 09:09 12/05/22 09:09
[2022-12-05] MEDS: METOPROLOL SUCC 25MG EXT REL TAB PO SCH (20:37)
[2022-12-06] MEDS: HEPARIN SOD 5,000 UNIT/0.5 ML VIAL SQ SCH ×3 (00:13→17:23)
[2022-12-06 07:25] LABS: Hematocrit (blood only) 27.6 % (42.0-52.0); Hemoglobin 8.4 g/dl (14.0-18.0); Mean Corpuscular Hemoglobin 27.1 pg (25.0-34.0); Mean Corpuscular Hgb Conc 30.4 g/dL (32.0-36.0); Mean Platelet Volume 10.7 fL (9.4-12.4); Platelet Count 346 K/uL (130-400); RDW Coefficient of Variation 18.3 % (11.5-14.5); RDW Standard Deviation 59.8 fL (36.4-46.3); White Blood Count 9.01 K/ul (4.8-10.8)
[2022-12-06 07:35] LABS: BUN Creatinine Ratio 7.8 (10-20); Calcium 8.9 mg/dl (8.6-10.3); Est GFR (African American) 12.8 ml/min; Est GFR (Non-African American) 11.1 ml/min; Phosphorus 6.1 mg/dl (2.5-4.9); Potassium 4.5 mmol/L (3.5-5.1)
[2022-12-06] MEDS ORDERED: SODIUM CHLORIDE 0.9% 1000ML 1,000 ML IV PRN (07:54)
[2022-12-06] MEDS ORDERED: HEPARIN SOD (PORCINE) 1000 UNIT/ML IV ONE (07:54)
[2022-12-06] MEDS ORDERED: EPOETIN ALFA 20,000 UNITS/ML VIAL IV SCH (08:00)
[2022-12-06] MEDS ORDERED: IRON SUCROSE 100 MG in SYRINGE 0 ML IV ONE (08:10)
--- NOTE | 2022-12-06 08:45 | Pulmonary Consultation ---
Date of Consultation December 06, 2022 Assessment & Plan (1) Acute hypoxemic respiratory failure: (2) Pleural effusion: (3) Heart failure with acute decompensation, type unknown: Plan Patient with bilateral effusions secondary to inefficient hemodialysis and decompensated CHF. Left-sided thoracentesis performed today with 1.1 L of serosanguineous fluid removed. He is having recurrent effusions despite hemodialysis. Recommend increasing volume of removal of fluid as tolerated. We will follow cultures and cytology from pleural fluid. Postprocedure chest x-ray is pending. Doubtful of the pleural infection at this time. Thank you for allowing us to participate in the care of this patient. Please call with questions. History of Present Illness Reason for Consultation: Bilateral pleural effusion Attending Physician: Celestina Rsuh MD History of Present Illness 67-year-old male with history of end-stage renal disease on hemodialysis, ANCA vasculitis, paroxysmal atrial flutter, chronic anemia and nephrolithiasis who presented to the hospital 12/05/2022 due to increased shortness of breath. He has had numerous recent hospitalizations. He had a left-sided thoracentesis in [place] approximately 5 days ago yielding 900 cc of serosanguineous fluid. Chest x-ray 12/04/2022 revealed left greater than right pleural effusions. Echo 12/05/2022 with an EF of 40 to 45%. Aortic valve is moderately calcified. Right ventricle moderately dilated. Right ventricular systolic pressure mildly reduced. RVSP 40 to 50 mmHg. Coags and platelet counts acceptable. Patient does endorse some chronic shortness of breath which is worsened over the past week. He denies any significant fevers or chills. No cough. He denies any lower extremity edema. He notes that his peritoneal dialysis catheter broke last week and he is now getting hemodialysis via his fistula. Allergies Allergy/AdvReac Type Severity Reaction Status Date / Time No Known Allergies Allergy Verified 12/05/22 00:51 Home Medications Medication Instructions Recorded Confirmed Type ergocalciferol (vitamin D2) 1,250 1,250 mcg PO WK 10/28/20 12/05/22 History mcg (50,000 unit) capsule (Vitamin D2) losartan 50 mg tablet (Cozaar) 50 mg PO AMHS 10/28/20 12/05/22 History allopurinol 100 mg tablet 50 mg PO DAILY 06/12/22 12/05/22 History carvedilol 6.25 mg tablet 6.25 mg PO AMHS 06/12/22 12/05/22 History metoprolol tartrate 25 mg tablet 25 mg PO BID 06/12/22 12/05/22 History calcitriol 0.5 mcg capsule 1.5 mcg PO DAILY 08/19/22 12/05/22 History cinacalcet 30 mg tablet (Sensipar) 30 mg PO DAILY 08/19/22 12/05/22 History vit B,C-folic ac 800 mcg-zinc 12.5 1 tab PO DAILY 08/19/22 12/05/22 History mg-selen-D3 2,000 unit-vit E tablet (RenaPlex-D) amlodipine 5 mg tablet 5 mg PO DAILY 11/10/22 12/05/22 History hydralazine 50 mg tablet 50 mg PO QID 11/10/22 12/05/22 History patiromer calcium sorbitex 8.4 8.4 g PO QAM 11/10/22 12/05/22 History gram oral powder packet (Veltassa) megestrol 20 mg tablet 20 mg PO QAM 12/05/22 12/05/22 History Patient History Medical History Acute upper gastrointestinal bleeding Anemia Anemia of chronic disease AV fistula Benign prostatic hyperplasia with urinary obstruction Dialysis AV fistula infection Dialysis AV fistula malfunction ESRD (end stage renal disease) on dialysis HD patient follows w/ Dr Mun[facility] 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 Fluid overload Hyperkalemia Hypertension Kidney transplant candidate reason for colonoscopy to get on list Nephrolithiasis Peritoneal dialysis catheter in place Peritoneal dialysis status per daughter--"in place with a hole" but currently not using Pleural effusion Restless leg syndrome Symptomatic anemia Surgical History H/O inguinal hernia repair History of colonoscopy History of cystoscopy History of thoracentesis History of tooth extraction Status post creation of arteriovenous fistula left arm Family History Other No family history of adverse response to anesthesia No significant family history Social History Smoking Status: Former smoker Second Hand Exposure: No; Do You Dip or Chew Tobacco: No; Hx Alcohol Use: No Hx Substance Use: No Preferred Language: Citizen Of [place] Communication Ability: w/assist Communication Ability Comment: does not speak any danish, only Citizen Of [place] Communication Tools: IPad and Physical Gestures Clean Room Assembler Required: Yes Beliefs That Will Affect Care: None marital status: Current Living Situation: Family current occupational status: employed Feels Safe at Home: Yes Safety Concerns: Feels Safe At This Time Assistive Devices: Glasses Review of Systems Review of Systems: All systems reviewed & are unremarkable except as noted in HPI & below Physical Exam Physical Exam: Constitutional: Patient appears to be of their stated age. Patient is in no apparent distress. Patient is well-developed. Eyes: Pupils are equal round and reactive to light. Conjunctivae are normal. Anicteric sclera. Ears nose, mouth and throat: Deferred.. Neck: Trachea is midline. Visual inspection is normal. Respiratory: Diminished bilaterally. Minimal tachypnea. Cardiovascular: Regular rate and rhythm. No murmurs. No edema. Gastrointestinal: Normal bowel sounds, soft, nontender and nondistended. No hepatosplenomegaly noted. Musculoskeletal: No cyanosis. Patient is able to move all extremities. Strengt h is 5 out of 5 in the upper and lower extremities. Skin: No rashes, warm dry and intact. Neurologic: No obvious focal neurological deficits seen. Psychiatric: Alert and oriented x3 with a euthymic affect. Results & Data Results & Data Vital Signs (Past 12 Hours) Vital Signs Temp Pulse Pulse Resp BP Pulse Ox O2 Del Method 12/06/22 08:03 37.0 C 83 18 137/76 94 Nasal Cannula 12/06/22 07:13 76 12/06/22 03:30 36.9 C 68 18 131/74 90 Oxymask 12/05/22 23:57 78 12/05/22 23:00 36.8 C 77 18 135/72 97 Oxymask O2 Flow Rate 12/06/22 08:03 5.0 12/06/22 07:13 12/06/22 03:30 5 12/05/22 23:57 12/05/22 23:00 PG Care Time/CCT Total # of Minutes Spent Total Time Spent with Patient: Total time spent is greater than 50% in coordination of care (as documented) at patient's floor/unit and/or counseling patient: Coding Level of Care Code 83589 INT INP/OBS CARE MIN Diagnoses Acute hypoxemic respiratory failure J96.01 Pleural effusion J90 Heart failure with acute decompensation, type unknown I50.9
--- NOTE | 2022-12-06 08:59 | XRay Report ---
XR chest 1V portable HISTORY: 67 years-old Male Reassess. Hypoxia acute hypoxia COMPARISON: 12/05/2022 TECHNIQUE: AP view of the chest FINDINGS: Cardiac silhouette is enlarged. Decreased pulmonary edema. No pneumothorax. Left right layering pleur al effusions again noted along with bibasilar consolidation, mildly improved. Degenerative changes of the shoulders and spine. Left shoulder rotator cuff calcific tendinosis. IMPRESSION: 1. Cardiomegaly with mildly improved pulmonary edema. 2. Left greater than right layering pleural effusions with mildly improved bibasilar consolidation. ACT 112: Negative or not required by law. The above report was generated using voice recognition software. It may contain grammatical, syntax o r spelling errors. Electronically signed by: Chip Henderson M.D. 12/06/2022 8:57 AM
[2022-12-06] MEDS ORDERED: PATIROMER CALCIUM SORBITEX 8.4 GM PACK PO SCH (09:00)
[2022-12-06] MEDS ORDERED: ONDANSETRON INJ 2 MG/ML 2 ML VIAL ONE (09:38)
[2022-12-06] MEDS ORDERED: ONDANSETRON INJ 2 MG/ML 2 ML VIAL IV STA (09:40)
--- NOTE | 2022-12-06 09:55 | Procedure Note ---
Procedure Note Date of Service December 06, 2022 Note Procedure: Diagnostic and therapeutic ultrasound-guided catheter thoracentesis Photo Journalist: Dr. Mitchell Brown Indication: Pleural effusion Consent: Signed by patient and verified with timeout prior to procedure. Anesthesia: 8 mL's of 1% lidocaine without epinephrine given locally Procedure: Consent was verified and timeout performed. Appropriate imaging studies were reviewed prior to the procedure. Patient was placed in a seated position and limited thoracic ultrasound was performed of the left lateral chest. See separate imaging. The site appropriate for thoracentesis was selected. The skin was prepped and draped in normal sterile fashion. Lidocaine was used for local analgesia. Fluid was aspirated via the finder needle. A small skin miah was made with the scalpel and the catheter over the needle apparatus was advanced over the rib into the pleural space. Using the syringe one-way valve system, a total of 1100 mL's of serosanguineous fluid was removed. Procedure was terminated due to cough and emesis. The catheter was removed and observed to be intact. A sterile dressing was applied. Post procedure chest x-ray was ordered. Fluid was sent for LDH, total protein, cell count, glucose, pH, cytology, gram stain and culture and fungal cultures. The patient tolerated the procedure well without obvious complication. Coding CPT Codes Pulmonary/Thoracic - Pulmonary and Thoracic: 45981 Thoracentesis w imaging ([id number]) [facility] [place] Procedure Codes (Charges) Pulmonary/Thoracic Procedure 1: Pulmonary and Thoracic: 88529 Thoracentesis w imaging
[2022-12-06] MEDS: amLODIPine BESYLATE 5 MG TAB PO SCH (10:06)
[2022-12-06] MEDS: allopurinoL 100 MG TAB PO SCH (10:06)
[2022-12-06] MEDS: MEGESTROL ACETATE 40 MG TAB PO SCH (10:07)
[2022-12-06] MEDS: CALCITRIOL 0.25 MCG CAPSULE PO SCH (10:08)
[2022-12-06] MEDS: CINACALCET HCL 30 MG TAB PO SCH (10:09)
[2022-12-06] MEDS: METOPROLOL SUCC 25MG EXT REL TAB PO SCH ×2 (10:09→20:13)
[2022-12-06] MEDS: NEPHROCAPS PO SCH (10:10)
[2022-12-06] MEDS: hydrALAZINE TAB 50 MG TAB PO SCH ×4 (10:10→20:14)
[2022-12-06 10:16] LABS: Albumin Level 2.9 gm/dl (3.4-5.0); Bilirubin,Total 0.4 mg/dl (0.2-1.0); Total Protein 5.9 gm/dl (6.0-8.3)
--- NOTE | 2022-12-06 10:21 | XRay Report ---
XR chest 1V portable HISTORY: 67 years-old Male post thoracentesis follow-up study in a patient with pleural effusions COMPARISON: Chest radiograph of same day 40 6:00 AM TECHNIQUE: Upright AP view of the chest FINDINGS: The heart is enlarged. Unchanged mild pulmonary edema. No pneumothorax. Layering pleural effusions ar e again noted, mildly decreased in size on the left. Persistent bibasilar consolidation. Degenerative changes of the shoulders and spine. IMPRESSION: 1. Mildly decreased size of the left pleural effusion status post thoracentesis. 2. No postprocedural pneumothorax identified. ACT 112: Negative or not required by law. The above report was generated using voice recognition software. It may contain grammatical, syntax o r spelling errors. Electronically signed by: Chip Henderson M.D. 12/06/2022 10:20 AM
[2022-12-06 10:32] LABS: Appearance Pleural Fluid Hazy; Color Pleural Fluid Amber; RBC Pleural Fluid Auto 15000 /uL; Source Pleural Fluid Left Lung; WBC Pleural Fluid Auto 431 /uL
[2022-12-06 10:34] LABS: Amylase Pleural Fluid 22 U/L
[2022-12-06 10:40] LABS: Glucose Pleural Fluid 82 mg/dl; LDH Pleural Fluid 183 U/L; Total Protein Pleural Fluid < 3.0 gm/dl
--- NOTE | 2022-12-06 10:40 | Electrocardiogram Report ---
Test Reason : Blood Pressure : / mmHG Vent. Rate : 073 BPM Atrial Rate : 073 BPM P-R Int : 188 ms QRS Dur : 090 ms QT Int : 460 ms P-R-T Axes : 060 003 224 degrees QTc Int : 506 ms Normal sinus rhythm possible Inferior infarct (cited on or before 11-SEP-2022) Prolonged QT Abnormal ECG When compared with ECG of 04-DEC-2022 23:52, Questionable change in initial forces of Inferior leads T wave inversion now evident in Inferior leads T wave inversion now evident in Anterolateral leads QT has lengthened Confirmed by Prabhu Abrams ([id number]) on 12/06/2022 10:40:13 AM Referred By: REFERRED SELF Confirmed By:Juancho Abrams
[2022-12-06 12:02] LABS: HBSAG NON-REACTIVE (NON-REACTIVE); Hepatitis B Surface Ab, Quant <5 mIU/mL (> OR = 10)
[2022-12-06 12:23] LABS: Neutrophils, Fluid 2 %
[2022-12-06 12:24] LABS: Eosinophils, Fluid 9 %; Lymphocytes, Fluid 8 %; Mono,Macrophage,Mesothelial 81 %
--- NOTE | 2022-12-06 13:14 | Hospitalist Progress Note ---
Date of Service December 06, 2022 Assessment & Plan (1) Acute hypoxemic respiratory failure: (2) Pleural effusion: (3) Elevated troponin: (4) ESRD (end stage renal disease) on dialysis: (5) Acute heart failure with reduced ejection fraction and diastolic dysfunction: Plan History ESRD hx p-ANCA vasculitis Was initially on PD. Had staph aureus PD peritonitis last month associated with catheter malfunction/severe adhesions. PD cath was removed. Completed antibiotic treatment Has been on HD since Was hypoxic in HD and this resolved with fluid removal. Pleural effusion status post recent thoracentesis at [facility] Developed worsening dyspnea on 12/03/22 and presented to ER on 12/04/22. CXR showing Cardiomegaly, pulm edema, B/l Pleural effusion, with dependent consolidation Echo showed EF 40-45%, mild global hypokinesis of LV, mod conc LVH, trace MR, mild dil RV, RVSP 40-50 Trop [id number] Patient was requiring oxymask yesterday Had HD yesterday with removal of 4.5L Had Left thoracentesis by [employer] today with removal of 1.1L Follow up fluid analysis Client Care Representative on board. Will likely get more HD today Cardiology consulted for new heart failure with reduced ejection fraction noted on Echo Currently on metoprolol succinate 25mg bid, amlodipine, Hydralazine Discussed with Cardiology. Recommends starting ASA 81mg and statin Monitor hyperkalemia and manage appropriately Continue patiromer PT/OT eval DVT prophylaxis with heparin subcu full code Full code Patient requesting for daughters to be updated of plan of care. Sandy De La Rosa, [phone] Shital Bee, [phone] I spent a total of 55 minutes coordinating, documenting and providing care for this patient excluding time spent in performance of separately billed services Admission and Anticipated Discharge Date Admission Date: December 05, 2022 Subjective Patient seen and examined Evaluated patient using [place] supervisor steffen house through device He reports shortness of breath and cough are improved compared to yesterday Denied fever, chills Denied nausea, vomiting, abd pain Had left thoracentesis this morning by [employer] with removal of 1.1L of fluids. Reported nausea during the procedure which has resolved Physical Exam Constitutional: + ill appearing (chronic ill looking) and + well hydrated; no acute distress Eyes: PERRL, conjunctivae normal, anicteric sclerae ENMT: external ear and nose normal, oropharynx normal Respiratory: normal respiratory effort; no respiratory distress On nasal cannula Diminished breath sounds bilaterally Cardiovascular: Rate/Rhythm: regular rate and regular rhythm S1 S2 Gastrointestinal (Abdomen): normal bowel sounds, soft, nontender, no hepatosplenomegaly Musculoskeletal: No pedal edema Neurologic: PERRL, EOMI, accommodation nl, no face palsy, no dysarthria Psychiatric: A+Ox3, euthymic affect Results & Data Results & Data Vital Signs (Past 12 Hours) Vital Signs Temp Pulse Pulse Resp BP Pulse Ox O2 Del Method 12/06/22 11:58 36.6 C 74 19 157/85 H 100 Nasal Cannula 12/06/22 09:50 93 H 16 129/75 97 Oxymask 12/06/22 08:03 37.0 C 83 18 137/76 94 Nasal Cannula 12/06/22 07:13 76 12/06/22 03:30 36.9 C 68 18 131/74 90 Oxymask O2 Flow Rate 12/06/22 11:58 5.0 12/06/22 09:50 12/06/22 08:03 5.0 12/06/22 07:13 12/06/22 03:30 5 Laboratory Results Abnormal lab results 12/04/22 12/06/22 12/06/22 Range/Units 23:53 06:33 06:33 RBC 3.10 L (4.70-6.10) M/uL Hgb 8.4 L (14.0-18.0) g/dl Hct 27.6 L (42.0-52.0) % MCHC 30.4 L (32.0-36.0) g/dL RDW Std Deviation 59.8 H (36.4-46.3) fL RDW Coeff of Diamond 18.3 H (11.5-14.5) % BUN 39 H D (6-23) mg/dl Creatinine 4.97 H* D (0.6-1.4) mg/dl BUN/Creatinine Ratio 7.8 L (10-20) Phosphorus 6.1 H (2.5-4.9) mg/dl Iron 20 L (35-175) mcg/dl TIBC 145 L (250-450) mcg/dl Unsaturated IBC 125 L (155-355) mcg/dl Transferrin % Sat 14 L (20-50) % Total Protein 5.9 L (6.0-8.3) gm/dl Albumin 2.9 L (3.4-5.0) gm/dl Pleural pH (7.3-7.4) Hep Bs Antibody, Quant <5 L (> OR = 10) mIU/mL 12/06/22 Range/Units Unknown RBC (4.70-6.10) M/uL Hgb (14.0-18.0) g/dl Hct (42.0-52.0) % MCHC (32.0-36.0) g/dL RDW Std Deviation (36.4-46.3) fL RDW Coeff of Diamond (11.5-14.5) % BUN (6-23) mg/dl Creatinine (0.6-1.4) mg/dl BUN/Creatinine Ratio (10-20) Phosphorus (2.5-4.9) mg/dl Iron (35-175) mcg/dl TIBC (250-450) mcg/dl Unsaturated IBC (155-355) mcg/dl Transferrin % Sat (20-50) % Total Protein (6.0-8.3) gm/dl Albumin (3.4-5.0) gm/dl Pleural pH 7.45 H (7.3-7.4) Hep Bs Antibody, Quant (> OR = 10) mIU/mL
[2022-12-06] MEDS: HEPARIN SOD (PORCINE) 1000 UNIT/ML IV SCH ×2 (16:26→16:27)
--- NOTE | 2022-12-06 18:43 | Cardiology Progress Note ---
Date of Service December 06, 2022 Assessment & Plan (1) Pleural effusion: (2) Acute hypoxemic respiratory failure: (3) Elevated troponin: (4) Renal failure: Plan Patient is a complex 67-year-old male with end-stage renal disease on replacement therapy. Recent change from peritoneal dialysis to hemodialysis given acute peritonitis, obstruction of peritoneal catheter. Presents now with bilateral pleural effusions and hypoxic respiratory failure in setting of volume overload Echocardiogram demonstrates mildly decreased LV systolic function and troponins are elevated without acute EKG change Plan: Agree with aggressive dialysis with repeat thoracentesis if necessary Consider reducing antihypertensives to allow if necessary Per current med rec's not consistent with outpatient records. Uncertain why patient is on 2 beta-blockers with carvedilol and metoprolol succinate (not metoprolol tartrate) but previously prescribed during hospitalization in October. Clonidine patch listed in outpatient records as part of list Would recommend simplifying beta-osei therapies, discontinue carvedilol, continue metoprolol succinate 25 mg twice daily with likely upward titration Currently no symptoms to suggest acute myocardial ischemia though elevated troponin concerning if symptoms develop. Repeat EKG in a.m. 12/06/2022 Clinically responded to dialysis, thoracentesis. Heart rates improved on single beta-osei therapy Elevated troponins consistent with likely demand based ischemia secondary to hypoxic failure. We will repeat EKG in a.m. recommend initiating aspirin and statin We will discuss with nephrology plans previously evaluated for pretransplant. Will likely require cardiac catheterization in the future if still considered Admission and Anticipated Discharge Date Admission Date: December 05, 2022 Subjective Patient briefly seen and examined after thoracentesis. Respiratory status improving with dialysis and drainage of pleural effusion Once again denies chest pain Heart rate and blood pressure improved with above interventions Still requiring oxygen but improving Physical Exam Constitutional: + thin; no acute distress Eyes: PERRL, conjunctivae normal, anicteric sclerae ENMT: external ear and nose normal, oropharynx normal Neck: trachea midline, no thyromegaly Respiratory: Auscultation: + diminished lung sounds (Right base) Cardiovascular: Rate/Rhythm: regular rate and regular rhythm Heart Sounds: no murmur Vessels: no JVD Extremities: + edema Gastrointestinal (Abdomen): Percussion/Palpation: abdomen soft; abdomen nontender Results & Data Vital Signs (Past 12 Hours) Vital Signs Temp Pulse Pulse Pulse Resp BP BP 12/06/22 16:58 36.5 C 72 118/65 12/06/22 16:30 66 122/72 12/06/22 16:30 66 122/72 12/06/22 16:00 67 116/67 12/06/22 15:30 65 114/69 12/06/22 15:00 64 117/74 12/06/22 14:30 69 113/66 12/06/22 14:00 70 120/64 12/06/22 13:27 36.6 C 72 12/06/22 15:40 66 12/06/22 11:58 36.6 C 74 19 157/85 H 12/06/22 09:50 93 H 16 129/75 12/06/22 08:03 37.0 C 83 18 137/76 12/06/22 07:13 76 Pulse Ox O2 Del Method O2 Flow Rate 12/06/22 16:58 12/06/22 16:30 12/06/22 16:30 12/06/22 16:00 12/06/22 15:30 12/06/22 15:00 12/06/22 14:30 12/06/22 14:00 12/06/22 13:27 12/06/22 15:40 12/06/22 11:58 100 Nasal Cannula 5.0 12/06/22 09:50 97 Oxymask 12/06/22 08:03 94 Nasal Cannula 5.0 12/06/22 07:13 Laboratory Results Laboratory Results - last 24 hr 12/04/22 12/06/22 12/06/22 23:53 06:33 06:33 WBC 9.01 RBC 3.10 L Hgb 8.4 L Hct 27.6 L MCV 89.0 MCH 27.1 MCHC 30.4 L RDW Std Deviation 59.8 H RDW Coeff of Diamond 18.3 H Plt Count 346 MPV 10.7 Sodium 141 Potassium 4.5 Chloride 101 Carbon Dioxide 30 Anion Gap 10 BUN 39 H D Creatinine 4.97 H* D Est Cr Clr Drug Dosing 14.0 Est GFR ( Amer) 12.8 Est GFR (Non-Af Amer) 11.1 BUN/Creatinine Ratio 7.8 L Glucose 73 Calcium 8.9 Phosphorus 6.1 H Iron 20 L TIBC 145 L Unsaturated IBC 125 L Transferrin % Sat 14 L Total Bilirubin 0.4 Lactate Dehydrogenase Total Protein 5.9 L Albumin 2.9 L Fluid Neutrophils % Fluid Lymphocytes % Fluid Eosinophils % Fluid Meso/Macro/Wells % Fluid Comment Pleural Fluid Source Pleural Color Pleural Appearance Pleural pH Pleural WBC (Auto) Pleural RBC (Auto) Pleural Total Protein Pleural LDH Pleural Glucose Pleural Amylase Pleural Cholesterol ANCA Complement C3 Complement C4 Tot Complement (CH50) Hep Bs Antigen NON-REACTIVE Hep Bs Ag Confirmation TNP Hep Bs Antibody, Quant <5 L 12/06/22 12/06/22 12/06/22 06:33 09:48 Unknown WBC RBC Hgb Hct MCV MCH MCHC RDW Std Deviation RDW Coeff of Diamond Plt Count MPV Sodium Potassium Chloride Carbon Dioxide Anion Gap BUN Creatinine Est Cr Clr Drug Dosing Est GFR ( Amer) Est GFR (Non-Af Amer) BUN/Creatinine Ratio Glucose Calcium Phosphorus Iron TIBC Unsaturated IBC Transferrin % Sat Total Bilirubin Lactate Dehydrogenase 217 Total Protein Albumin Fluid Neutrophils % 2 Fluid Lymphocytes % 8 Fluid Eosinophils % 9 Fluid Meso/Macro/Wells % 81 Fluid Comment Pleural Fluid Source Left Lung Pleural Color Ivana Pleural Appearance Hazy Pleural pH Pleural WBC (Auto) 431 Pleural RBC (Auto) 28142 Pleural Total Protein Pleural LDH Pleural Glucose Pleural Amylase Pleural Cholesterol ANCA Pending Complement C3 Pending Complement C4 Pending Tot Complement (CH50) Pending Hep Bs Antigen Hep Bs Ag Confirmation Hep Bs Antibody, Quant 12/06/22 12/06/22 12/06/22 Unknown Unknown Unknown WBC RBC Hgb Hct MCV MCH MCHC RDW Std Deviation RDW Coeff of Diamond Plt Count MPV Sodium Potassium Chloride Carbon Dioxide Anion Gap BUN Creatinine Est Cr Clr Drug Dosing Est GFR ( Amer) Est GFR (Non-Af Amer) BUN/Creatinine Ratio Glucose Calcium Phosphorus Iron TIBC Unsaturated IBC Transferrin % Sat Total Bilirubin Lactate Dehydrogenase Total Protein Albumin Fluid Neutrophils % Fluid Lymphocytes % Fluid Eosinophils % Fluid Meso/Macro/Wells % Fluid Comment Pleural Fluid Source Pleural Color Pleural Appearance Pleural pH 7.45 H Pleural WBC (Auto) Pleural RBC (Auto) Pleural Total Protein < 3.0 Pleural LDH 183 Pleural Glucose 82 Pleural Amylase 22 Pleural Cholesterol Pending ANCA Complement C3 Complement C4 Tot Complement (CH50) Hep Bs Antigen Hep Bs Ag Confirmation Hep Bs Antibody, Quant
[2022-12-06] MEDS: ASPIRIN 81 MG ECTAB PO SCH (19:30)
[2022-12-06] MEDS: ATORVASTATIN 40 MG TAB PO SCH (20:14)
--- NOTE | 2022-12-06 22:02 | Nephrology Progress Note ---
Date of Service December 06, 2022 Assessment & Plan (1) ESRD (end stage renal disease) on dialysis: Plan: HD today w/ goal 4.5 L fluid removal as tolerated; plan daily dialysis until better stabilized > next HD tomorrow hoping that anemia will improve some with UF >iron studie sfor AM and check phos (2) Acute hypoxemic respiratory failure: Plan: may need consideration for repeat thoracenteses >aggressive fluid removal w/ HD -doubt any role for ANCA here but could consider if UF does not improve status (3) Heart failure with acute decompensation, type unknown: Plan: fluid removal w/ HD -f/u cardiology recs Admission and Anticipated Discharge Date Admission Date: December 05, 2022 Subjective "I can't breathe all the way" had 3.5L UF today and 1.1 L thoracentesis ; on 3L 02 nc now; no pain Review of Systems Review of Systems: All systems reviewed & are unremarkable except as noted in Subjective Physical Exam Constitutional: well developed, well nourished, + cachectic, + frail appearing and cooperative Eyes: EOM intact bilaterally ENMT: Ears: no external ear abnormality Nose: no external nose abnormality Mouth: + dry oral mucous membranes Neck: no nuchal rigidity Respiratory: + labored breathing (slight), able to speak in complete sentences and + paradoxical thoraco-abdominal movement Auscultation: + diminished lung sounds (R base geetha/ R post valle geetha), + crackles (L) and + rales (L) Cardiovascular: RRR, no murmur, no edema Extremities: + AV fistula Gastrointestinal (Abdomen): Inspection/Auscultation: normal bowel sounds Percussion/Palpation: abdomen soft; abdomen nontender Musculoskeletal: Extremities: strength 5/5 throughout Skin: no rashes, warm and dry Neurologic: sim, fluent speech, no tremor Psychiatric: Orientation: alert and oriented x 3 Results & Data Vital Signs (Past 12 Hours) Vital Signs Temp Pulse Pulse Pulse Resp BP BP 12/06/22 20:00 12/06/22 19:00 36.5 C 69 18 128/78 12/06/22 16:58 36.5 C 72 118/65 12/06/22 16:30 66 122/72 12/06/22 16:30 66 122/72 12/06/22 16:00 67 116/67 12/06/22 15:30 65 114/69 12/06/22 15:00 64 117/74 12/06/22 14:30 69 113/66 12/06/22 14:00 70 120/64 12/06/22 13:27 36.6 C 72 12/06/22 15:40 66 12/06/22 11:58 36.6 C 74 19 157/85 H Pulse Ox O2 Del Method O2 Flow Rate 12/06/22 20:00 Nasal Cannula 3 12/06/22 19:00 100 Nasal Cannula 3 12/06/22 16:58 12/06/22 16:30 12/06/22 16:30 12/06/22 16:00 12/06/22 15:30 12/06/22 15:00 12/06/22 14:30 12/06/22 14:00 12/06/22 13:27 12/06/22 15:40 12/06/22 11:58 100 Nasal Cannula 5.0 Laboratory Results 12/06/22 06:33 12/06/22 06:33
[2022-12-07] MEDS: HEPARIN SOD 5,000 UNIT/0.5 ML VIAL SQ SCH ×3 (00:48→16:25)
[2022-12-07] MEDS ORDERED: PATIROMER CALCIUM SORBITEX 8.4 GM PACK PO SCH (06:00)
[2022-12-07 07:14] LABS: Hemoglobin 9.4 g/dl (14.0-18.0); Mean Corpuscular Hemoglobin 27.2 pg (25.0-34.0); Mean Corpuscular Hgb Conc 31.3 g/dL (32.0-36.0); Mean Platelet Volume 10.9 fL (9.4-12.4); Platelet Count 363 K/uL (130-400); RDW Coefficient of Variation 17.9 % (11.5-14.5); RDW Standard Deviation 56.8 fL (36.4-46.3); Red Blood Count 3.45 M/uL (4.70-6.10); White Blood Count 9.14 K/ul (4.8-10.8)
[2022-12-07 07:26] LABS: BUN Creatinine Ratio 7.3 (10-20); Calcium 9.1 mg/dl (8.6-10.3); Creatinine Clr Calc Pharmacy 15.7 ml/min; Magnesium 1.9 mg/dl (1.7-2.4); Phosphorus 5.6 mg/dl (2.5-4.9); Potassium 4.2 mmol/L (3.5-5.1)
[2022-12-07] MEDS: hydrALAZINE TAB 50 MG TAB PO SCH (08:03)
[2022-12-07] MEDS: METOPROLOL SUCC 25MG EXT REL TAB PO SCH ×2 (08:03→20:03)
[2022-12-07] MEDS: MEGESTROL ACETATE 40 MG TAB PO SCH (08:06)
[2022-12-07] MEDS: CALCITRIOL 0.25 MCG CAPSULE PO SCH (08:08)
[2022-12-07] MEDS: allopurinoL 100 MG TAB PO SCH (08:08)
[2022-12-07] MEDS: ASPIRIN 81 MG ECTAB PO SCH (08:09)
[2022-12-07] MEDS: amLODIPine BESYLATE 5 MG TAB PO SCH (08:09)
[2022-12-07] MEDS: NEPHROCAPS PO SCH (08:09)
[2022-12-07] MEDS: CINACALCET HCL 30 MG TAB PO SCH (08:10)
--- NOTE | 2022-12-07 11:22 | Nephrology Progress Note ---
Date of Service December 07, 2022 Assessment & Plan (1) ESRD (end stage renal disease) on dialysis: Plan: had opportunity to dialyze pt today but he declined. Patient on 2 L of oxygen through most of day; did get to RA. On Monday and Monday, patient had total of 9 L of fluid removed, including 1 L thoracentesis and the rest with dialysis. Blood pressure is improved and oxygen requirements better Plan hemodialysis tomorrow and Monday both > reviewed w/ pt -Anemia improving with fluid removal ; iron stores quite low phosphorus acceptable. Likely continued binder longer-term but will defer for now (2) Acute hypoxemic respiratory failure: Plan: improving may need consideration for repeat thoracenteses >aggressive fluid removal w/ HD -doubt any role for ANCA here but could consider if UF does not improve status (3) Heart failure with acute decompensation, type unknown: Plan: fluid removal w/ HD -f/u cardiology recs > cardiac cath if sx emerge or when pursuing transplant eval more fully Admission and Anticipated Discharge Date Admission Date: December 05, 2022 Subjective pt refused dialysis today saying he's too dry. we discussed his situation. sittign in bed on RA when I saw him. ambluated today ; eeling better Review of Systems Review of Systems: All systems reviewed & are unremarkable except as noted in Subjective Physical Exam Constitutional: well developed, well nourished, + cachectic, + frail appearing and cooperative Eyes: EOM intact bilaterally ENMT: Ears: no external ear abnormality Nose: no external nose abnormality Mouth: + dry oral mucous membranes Neck: no nuchal rigidity Respiratory: + labored breathing (slight), able to speak in complete sentences and + paradoxical thoraco-abdominal movement Auscultation: + diminished lung sounds (R base geetha/ R post valle geetha), + crackles (L) and + rales (L) Cardiovascular: RRR, no murmur, no edema Extremities: + AV fistula Gastrointestinal (Abdomen): Inspection/Auscultation: normal bowel sounds Percussion/Palpation: abdomen soft; abdomen nontender Musculoskeletal: Extremities: strength 5/5 throughout Skin: no rashes, warm and dry Psychiatric: Orientation: alert and oriented x 3 Results & Data Vital Signs (Past 12 Hours) Vital Signs Temp Pulse Pulse Resp BP Pulse Ox O2 Del Method 12/07/22 08:00 Nasal Cannula 12/07/22 07:35 36.4 C L 67 16 151/81 H 97 Nasal Cannula 12/07/22 03:47 36.5 C 68 16 135/76 95 Nasal Cannula 12/06/22 23:56 67 O2 Flow Rate 12/07/22 08:00 2 12/07/22 07:35 2 12/07/22 03:47 3 12/06/22 23:56 Laboratory Results 12/07/22 06:16 12/07/22 06:16
[2022-12-07] MEDS ORDERED: IRON SUCROSE 100 MG in SYRINGE 0 ML IV ONE (12:49)
[2022-12-07] MEDS ORDERED: SODIUM CHLORIDE 0.9% 1000ML 1,000 ML IV PRN (12:49)
[2022-12-07] MEDS ORDERED: EPOETIN ALFA 20,000 UNITS/ML VIAL IV ONE (12:49)
[2022-12-07] MEDS ORDERED: HEPARIN SOD (PORCINE) 1000 UNIT/ML IV ONE (12:49)
--- NOTE | 2022-12-07 13:24 | Pulmonology Progress Note ---
Date of Service December 07, 2022 Assessment & Plan (1) Acute hypoxemic respiratory failure: Plan: Improving. Encouraged nursing staff to wean the patient off oxygen if saturations are above 92%. (2) Pleural effusion: Plan: Left thoracentesis with removal of 1.1 L of fluid 12/06/2022. Fluid looks to be mildly exudative likely due to volume contraction. Cytology negative for malignancy. (3) Heart failure with acute decompensation, type unknown: Plan: Managed by cardiology. Admission and Anticipated Discharge Date Admission Date: December 05, 2022 Subjective Patient is resting comfortably. No acute events overnight. No complaints of pain or shortness of breath at rest. He is requiring 2 L of oxygen saturating 98%. He is going to undergo his third straight day of dialysis. Physical Exam Physical Exam: Constitutional: Patient appears to be of their stated age. Patient is in no apparent distress. Patient is well-developed. Eyes: Pupils are equal round and reactive to light. Conjunctivae are normal. Anicteric sclera. Ears nose, mouth and throat: Deferred.. Neck: Trachea is midline. Visual inspection is normal. Respiratory: Diminished bilaterally. Minimal tachypnea. Cardiovascular: Regular rate and rhythm. No murmurs. No edema. Gastrointestinal: Normal bowel sounds, soft, nontender and nondistended. No hepatosplenomegaly noted. Musculoskeletal: No cyanosis. Patient is able to move all extremities Skin: No rashes, warm dry and intact. Neurologic: No obvious focal neurological deficits seen. Psychiatric: Alert and oriented x3 with a euthymic affect. Results & Data Results & Data Vital Signs (Past 12 Hours) Vital Signs Temp Pulse Resp BP Pulse Ox O2 Del Method O2 Flow Rate 12/07/22 11:31 36.6 C 68 16 152/80 H 98 Nasal Cannula 2 12/07/22 08:00 Nasal Cannula 2 12/07/22 07:35 36.4 C L 67 16 151/81 H 97 Nasal Cannula 2 12/07/22 03:47 36.5 C 68 16 135/76 95 Nasal Cannula 3 PG Care Time/CCT Total # of Minutes Spent Total Time Spent with Patient: Total time spent is greater than 50% in coordination of care (as documented) at patient's floor/unit and/or counseling patient: Coding Level of Care Code 12092 SUB INP/OBS CARE 08/17MIN Diagnoses Acute hypoxemic respiratory failure J96.01 Pleural effusion J90 Heart failure with acute decompensation, type unknown I50.9
--- NOTE | 2022-12-07 15:21 | Cardiology Progress Note ---
Date of Service December 07, 2022 Assessment & Plan (1) Pleural effusion: (2) Acute hypoxemic respiratory failure: (3) Elevated troponin: (4) Renal failure: Plan Patient is a complex 67-year-old male with end-stage renal disease on replacement therapy. Recent change from peritoneal dialysis to hemodialysis given acute peritonitis, obstruction of peritoneal catheter. Presents now with bilateral pleural effusions and hypoxic respiratory failure in setting of volume overload Echocardiogram demonstrates mildly decreased LV systolic function and troponins are elevated without acute EKG change Plan: Agree with aggressive dialysis with repeat thoracentesis if necessary Consider reducing antihypertensives to allow if necessary Per current med rec's not consistent with outpatient records. Uncertain why patient is on 2 beta-blockers with carvedilol and metoprolol succinate (not metoprolol tartrate) but previously prescribed during hospitalization in October. Clonidine patch listed in outpatient records as part of list Would recommend simplifying beta-osei therapies, discontinue carvedilol, continue metoprolol succinate 25 mg twice daily with likely upward titration Currently no symptoms to suggest acute myocardial ischemia though elevated troponin concerning if symptoms develop. Repeat EKG in a.m. 12/06/2022 Clinically responded to dialysis, thoracentesis. Heart rates improved on single beta-osei therapy Elevated troponins consistent with likely demand based ischemia secondary to hypoxic failure. We will repeat EKG in a.m. recommend initiating aspirin and statin We will discuss with nephrology plans previously evaluated for pretransplant. Will likely require cardiac catheterization in the future if still considered 12/07/2022 Patient clinically stable with improving respiratory status with dialysis. Thoracentesis substantially helpful. Now oxygenating well EKG and cardiac enzymes consistent with non-ST segment elevation myocardial infarction/demand ischemia. Currently asymptomatic on guideline directed me dical therapy We will discuss nephrology future plans Consider stress testing versus cardiac catheterization post hospital discharge depending on management Admission and Anticipated Discharge Date Admission Date: December 05, 2022 Subjective Patient seen and examined, chart, medications, telemetry reviewed. Much more comfortable oxygenating on room air no chest pains or discomfort no pleuritic discomfort. Blood pressures trending towards better control. No fevers chills. Physical Exam Constitutional: + thin; no acute distress Eyes: PERRL, conjunctivae normal, anicteric sclerae ENMT: external ear and nose normal, oropharynx normal Neck: trachea midline, no thyromegaly Respiratory: Auscultation: + diminished lung sounds (Right base) Cardiovascular: Rate/Rhythm: regular rate and regular rhythm Heart Sounds: no murmur Vessels: no JVD Extremities: + edema Gastrointestinal (Abdomen): Percussion/Palpation: abdomen soft; abdomen nontender Results & Data Vital Signs (Past 12 Hours) Vital Signs Temp Pulse Resp BP Pulse Ox O2 Del Method O2 Flow Rate 12/07/22 15:16 36.6 C 67 14 156/82 H 92 Room Air 12/07/22 11:31 36.6 C 68 16 152/80 H 98 Nasal Cannula 2 12/07/22 08:00 Nasal Cannula 2 12/07/22 07:35 36.4 C L 67 16 151/81 H 97 Nasal Cannula 2 12/07/22 03:47 36.5 C 68 16 135/76 95 Nasal Cannula 3
[2022-12-07] MEDS: HEPARIN SOD (PORCINE) 1000 UNIT/ML IV SCH ×2 (16:23→16:24)
--- NOTE | 2022-12-07 18:00 | Hospitalist Progress Note ---
Date of Service December 07, 2022 Assessment & Plan (1) Acute hypoxemic respiratory failure: (2) Pleural effusion: (3) Elevated troponin: (4) ESRD (end stage renal disease) on dialysis: (5) Acute heart failure with reduced ejection fraction and diastolic dysfunction: Plan Acute on chronic systolic and diastolic heart failure Acute hypoxic respiratory failure ESRD on HD Pleural effusion S/P left thoracentesis H/O p-ANCA vasculitis Elevated troponin thought to be secondary to demand ischemia due to volume overload Was initially on PD. Had staph aureus PD peritonitis last month associated with catheter malfunction/severe adhesions. PD cath was removed. Completed antibiotic treatment CXR showing Cardiomegaly, pulm edema, B/l Pleural effusion, with dependent consolidation Echo showed EF 40-45%, mild global hypokinesis of LV, mod conc LVH, trace MR, mild dil RV, RVSP 40-50 Continue dialysis as per nephrology Appreciate nephrology, cardiology, pulmonary input Saturating low 90s on room air Continue fluid restriction Continue metoprolol Carvedilol discontinued Monitor volume status Continue aspirin, statin, hydralazine, metoprolol, amlodipine Hyperkalemia Received patiromer Resolved Monitor DVT Px: Heparin SQ Code Status Full code Admission and Anticipated Discharge Date Admission Date: December 05, 2022 Subjective Patient is seen and examined at bedside States feeling better today Offers no complaints Denies any chest pain, dyspnea, dizziness, nausea, abdominal pain No other complaints Discussed with nephrology today Review of Systems Review of Systems: All systems reviewed & are unremarkable except as noted in Subjective Physical Exam Physical Exam: Physical Exam: Vitals signs as noted above General Appearance:Thin, Frail, no apparent distress Head: normocephalic, Atraumatic Eyes: normal inspection, EOMI Neck: supple, Trachea midline Respiratory/Chest: Normal breath sounds, Basal rales, rNo accessory muscle use Cardiovascular: S1, S2, No murmur Abdomen/GI:Soft, Non tender, Bowel sounds present Extremities/Musculoskeletal:normal inspection, no edema Neurologic/Psych:AAOX3, grossly no focal neurological deficits Skin: normal color, warm Results & Data Results & Data Vital Signs (Past 12 Hours) Vital Signs Temp Pulse Resp BP Pulse Ox O2 Del Method O2 Flow Rate 12/07/22 15:16 36.6 C 67 14 156/82 H 92 Room Air 12/07/22 11:31 36.6 C 68 16 152/80 H 98 Nasal Cannula 2 12/07/22 08:00 Nasal Cannula 2 12/07/22 07:35 36.4 C L 67 16 151/81 H 97 Nasal Cannula 2 Laboratory Results Short CBC 12/07/22 Range/Units 06:16 WBC 9.14 (4.8-10.8) K/ul Hgb 9.4 L (14.0-18.0) g/dl Hct 30.0 L (42.0-52.0) % Plt Count 363 (130-400) K/uL [facility] 12/07/22 06:16 Sodium 140 Potassium 4.2 Chloride 100 Carbon Dioxide 30 BUN 32 H Creatinine 4.36 H D Glucose 73 Calcium 9.1
--- NOTE | 2022-12-07 18:37 | XRay Report ---
XR chest 2V PA/lateral CLINICAL HISTORY: f/u effusions TECHNIQUE: 2 views of the chest were obtained. Comparison: Comparison is made to chest radiograph 12/06/2022 FINDINGS: No lines and tubes are seen. Cardiomegaly is noted. Airspace opacities in the bilateral lower lungs. There is a moderate left and small right pleural effusion. IMPRESSION: Moderate left and small right pleural effusions. These appear essentially stable from prior exam. ACT 112: Negative or not required by law. Electronically signed by: Jose Nicholson M.D. 12/07/2022 6:35 PM
[2022-12-07] MEDS: ATORVASTATIN 40 MG TAB PO SCH (20:03)
[2022-12-07] MEDS: hydrALAZINE HCL 25 MG TAB PO SCH (20:03)
[2022-12-07] MEDS ORDERED: hydrALAZINE TAB 50 MG TAB PO SCH (21:00)
[2022-12-08] MEDS: HEPARIN SOD 5,000 UNIT/0.5 ML VIAL SQ SCH ×2 (00:06→07:58)
[2022-12-08] MEDS ORDERED: HEPARIN SOD (PORCINE) 1000 UNIT/ML IV ONE (06:34)
[2022-12-08] MEDS ORDERED: SODIUM CHLORIDE 0.9% 1000ML 1,000 ML IV PRN (06:34)
[2022-12-08] MEDS ORDERED: EPOETIN ALFA 20,000 UNITS/ML VIAL IV ONE (06:34)
[2022-12-08] MEDS ORDERED: IRON SUCROSE 100 MG in SYRINGE 0 ML IV ONE (06:34)
[2022-12-08 07:39] LABS: BUN Creatinine Ratio 7.8 (10-20); Calcium 9.2 mg/dl (8.6-10.3); Creatinine Clr Calc Pharmacy 10.6 ml/min; Est GFR (African American) 9.2 ml/min; Est GFR (Non-African American) 7.9 ml/min; Potassium 4.3 mmol/L (3.5-5.1)
[2022-12-08] MEDS: amLODIPine BESYLATE 5 MG TAB PO SCH (07:54)
[2022-12-08] MEDS: MEGESTROL ACETATE 40 MG TAB PO SCH (07:54)
[2022-12-08] MEDS: METOPROLOL SUCC 25MG EXT REL TAB PO SCH (07:54)
[2022-12-08] MEDS: allopurinoL 100 MG TAB PO SCH (07:55)
[2022-12-08] MEDS: NEPHROCAPS PO SCH (07:55)
[2022-12-08] MEDS: ASPIRIN 81 MG ECTAB PO SCH (07:56)
[2022-12-08] MEDS: CALCITRIOL 0.25 MCG CAPSULE PO SCH (07:56)
[2022-12-08] MEDS: CINACALCET HCL 30 MG TAB PO SCH (07:57)
[2022-12-08] MEDS: hydrALAZINE HCL 25 MG TAB PO SCH (07:59)
--- NOTE | 2022-12-08 10:22 | Dialysis Progress Note ---
Date of Service December 08, 2022 Assessment & Plan (1) ESRD (end stage renal disease) on dialysis: Plan: for HD today ; remains on RA since yesterday PM. On Monday and Monday, patient had total of 9 L of fluid removed, including 1 L thoracentesis and the rest with dialysis. Blood pressure remains elevated. no longer needing supplemental 02 Plan hemodialysis today and Monday both > reviewed w/ pt -Anemia improving with fluid removal ; iron stores quite low >> giving IV iron and KARLEE w/ HD phosphorus acceptable. Likely continued binder longer-term but will defer for now (2) Acute hypoxemic respiratory failure: Plan: improving may need consideration for repeat thoracenteses >aggressive fluid removal w/ HD -doubt any role for ANCA here but could consider if UF does not improve status (3) Heart failure with acute decompensation, type unknown: Plan: fluid removal w/ HD -f/u cardiology recs > cardiac cath if sx emerge or when pursuing transplant eval more fully Admission and Anticipated Discharge Date Admission Date: December 05, 2022 Subjective remains on RA; no c/o; asking about CXR Review of Systems Review of Systems: All systems reviewed & are unremarkable except as noted in Subjective Physical Exam Constitutional: well developed, well nourished, + cachectic, + frail appearing and cooperative Eyes: EOM intact bilaterally ENMT: Ears: no external ear abnormality Nose: no external nose abnormality Mouth: + dry oral mucous membranes Neck: no nuchal rigidity Respiratory: normal respiratory effort and able to speak in complete sentences Auscultation: + diminished lung sounds (R base geetha/ R post valle geetha), + crackles (L) and + rales (L) Cardiovascular: RRR, no murmur, no edema Extremities: + AV fistula Gastrointestinal (Abdomen): Inspection/Auscultation: normal bowel sounds Percussion/Palpation: abdomen soft; abdomen nontender Musculoskeletal: Extremities: strength 5/5 throughout Skin: no rashes, warm and dry Psychiatric: Orientation: alert and oriented x 3 Results & Data Vital Signs (Past 12 Hours) Vital Signs Temp Pulse Pulse Pulse Resp BP Pulse Ox 12/08/22 07:32 37.1 C 79 18 172/89 H 92 12/08/22 03:57 37.0 C 76 20 170/93 H 93 12/07/22 23:00 73 12/07/22 23:00 36.8 C 70 18 170/79 H 92 O2 Del Method 12/08/22 07:32 Room Air 12/08/22 03:57 Room Air 12/07/22 23:00 12/07/22 23:00 Room Air Laboratory Results 12/07/22 06:16 12/08/22 06:29
[2022-12-08] MEDS: HEPARIN SOD (PORCINE) 1000 UNIT/ML IV SCH ×3 (11:26→13:47)
--- NOTE | 2022-12-08 13:23 | Electrocardiogram Report ---
Test Reason : Blood Pressure : / mmHG Vent. Rate : 066 BPM Atrial Rate : 066 BPM P-R Int : 178 ms QRS Dur : 090 ms QT Int : 484 ms P-R-T Axes : 072 012 250 degrees QTc Int : 507 ms Normal sinus rhythm Possible Left atrial enlargement Possible Inferior infarct (cited on or before 11-SEP-2022) Anterior infarct , age undetermined Prolonged QT Abnormal ECG When compared with ECG of 06-DEC-2022 05:57, ST no longer depressed in Lateral leads Confirmed by Prabhu Abrams ([id number] on 12/07/2022 1:36:55 PM Referred By: REFERRED SELF Confirmed By:Juancho Abrams
--- NOTE | 2022-12-08 14:08 | Hospitalist Progress Note ---
Date of Service December 08, 2022 Assessment & Plan (1) Acute hypoxemic respiratory failure: (2) Pleural effusion: (3) Elevated troponin: (4) ESRD (end stage renal disease) on dialysis: (5) Acute heart failure with reduced ejection fraction and diastolic dysfunction: Plan Acute on chronic systolic and diastolic heart failure Acute hypoxic respiratory failure ESRD on HD Pleural effusion S/P left thoracentesis H/O p-ANCA vasculitis Elevated troponin thought to be secondary to demand ischemia due to volume overload Was initially on PD. Had staph aureus PD peritonitis last month associated with catheter malfunction/severe adhesions. PD cath was removed. Completed antibiotic treatment CXR showing Cardiomegaly, pulm edema, B/l Pleural effusion, with dependent consolidation Echo showed EF 40-45%, mild global hypokinesis of LV, mod conc LVH, trace MR, mild dil RV, RVSP 40-50 Continue dialysis as per nephrology Appreciate nephrology, cardiology, pulmonary input Saturating low 90s on room air Continue fluid restriction Continue metoprolol Carvedilol discontinued Monitor volume status Continue aspirin, statin, hydralazine, metoprolol, amlodipine Plan to discharge home today Had scheduled outpatient dialysis tomorrow Hyperkalemia Received patiromer Resolved Monitor DVT Px: Heparin SQ Code Status Full code Admission and Anticipated Discharge Date Admission Date: December 05, 2022 Subjective Patient is seen and examined at bedside Had hemodialysis this morning Offers no new complaints Discussed with cardiology and nephrology today Denies any chest pain, dyspnea, dizziness, nausea, abdominal pain Plan to discharge home today Review of Systems Review of Systems: All systems reviewed & are unremarkable except as noted in Subjective Physical Exam Physical Exam: Physical Exam: Vitals signs as noted above General Appearance:Thin, Frail, no apparent distress Head: normocephalic, Atraumatic Eyes: normal inspection, EOMI Neck: supple, Trachea midline Respiratory/Chest: Normal breath sounds, Basal rales, rNo accessory muscle use Cardiovascular: S1, S2, No murmur Abdomen/GI:Soft, Non tender, Bowel sounds present Extremities/Musculoskeletal:normal inspection, no edema Neurologic/Psych:AAOX3, grossly no focal neurological deficits Skin: normal color, warm Results & Data Results & Data Vital Signs (Past 12 Hours) Vital Signs Temp Pulse Pulse Resp BP BP Pulse Ox 12/08/22 12:52 36.8 C 70 167/89 H 12/08/22 12:30 71 158/85 H 12/08/22 12:00 75 147/84 H 12/08/22 11:30 68 174/84 H 12/08/22 11:00 76 133/78 12/08/22 10:30 73 142/88 H 12/08/22 10:03 73 159/96 H 12/08/22 09:54 36.8 C 80 12/08/22 07:32 37.1 C 79 18 172/89 H 92 12/08/22 03:57 37.0 C 76 20 170/93 H 93 O2 Del Method 12/08/22 12:52 12/08/22 12:30 12/08/22 12:00 12/08/22 11:30 12/08/22 11:00 12/08/22 10:30 12/08/22 10:03 12/08/22 09:54 12/08/22 07:32 Room Air 12/08/22 03:57 Room Air Laboratory Results [facility] 12/08/22 06:29 Sodium 138 Potassium 4.3 Chloride 99 Carbon Dioxide 25 BUN 51 H Creatinine 6.57 H* D Glucose 72 Calcium 9.2
--- NOTE | 2022-12-08 14:40 | Discharge Summary ---
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 Limited history from patient secondary to language barrier. Medical history significant for paroxysmal atrial flutter, mild MR, aortic root dilatation, hypertension, hyperlipidemia, ESRD on HD, P ANCA vasculitis as per records, prediabetes, chronic anemia (baseline hemoglobin 8-10). Last [facility] confinement October 2022 for peritonitis/hemoperitoneum in the setting of poor home PD compliance. Patient transferred to [facility] where he stayed for a week. Patient underwent diagnostic laparoscopy, hemoperitoneum drainage and removal of peritoneal dialysis catheter. Patient completed vancomycin course for peritonitis. Hemodialysis initiated at [facility]. Patient noted to be hypoxemic on outpatient dialysis treatments last week. O2 sats noted to be 80s. Patient with known pleural effusions left greater than the right during recent [facility] stay per transport rn note. Patient underwent outpatient ultrasound-guided left thoracentesis at [facility] by rx specialist 4 days ago. 900 cc serosanguineous colored pleural fluid drained. Patient still with SOB mostly on exertion and orthopnea symptoms at home. Denies chest pain. Dry cough symptoms. Patient consulted ER for worsening symptoms. IV Lasix administered at the ER. 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, patient born in [place] Admission Exam Per Admitting Provider GENERAL: Comfortable, no respiratory distress, chronically ill SKIN: Sallow, warm HEENT: alopecia, pale palpebral conjunctivae, no ptosis, dry buccal mucosa, O2 mask in place NECK : Supple, no tenderness CHEST : Decreased breath sounds, no tenderness HEART : RRR, no obvious murmurs ABDOMEN: Some distention, nontender EXTREMITIES : Minimal LE swelling, no LE tenderness, no other conspicuous deformities noted NEUROLOGIC : Coherent, no facial asymmetry, no other gross focality Principal Diagnosis Acute on chronic systolic and diastolic heart failure Acute hypoxic respiratory failure ESRD on HD Pleural effusion S/P left thoracentesis Hyperkalemia Discharge Data Allergies Allergy/AdvReac Type Severity Reaction Status Date / Time No Known Allergies Allergy Verified 12/05/22 00:51 Consultations 12/05/22 00:47 ED Decision to Admit Stat 12/05/22 08:44 Consult Nephrology Routine 12/05/22 13:36 Consult Cardiology Routine 12/06/22 08:33 Consult Pulmonology Routine Procedures Performed Laboratory Results WBC 9.14 K/ul (4.8-10.8) 12/07/22 06:16 RBC 3.45 M/uL (4.70-6.10) L 12/07/22 06:16 Hgb 9.4 g/dl (14.0-18.0) L 12/07/22 06:16 Hct 30.0 % (42.0-52.0) L 12/07/22 06:16 MCV 87.0 fL (80.0-100.0) 12/07/22 06:16 MCH 27.2 pg (25.0-34.0) 12/07/22 06:16 MCHC 31.3 g/dL (32.0-36.0) L 12/07/22 06:16 RDW Std Deviation 56.8 fL (36.4-46.3) H 12/07/22 06:16 RDW Coeff of Diamond 17.9 % (11.5-14.5) H 12/07/22 06:16 Plt Count 363 K/uL (130-400) 12/07/22 06:16 MPV 10.9 fL (9.4-12.4) 12/07/22 06:16 Immature Gran % (Auto) 0.4 % 12/05/22 09:09 Neut % (Auto) 60.5 % 12/05/22 09:09 Lymph % (Auto) 14.5 % 12/05/22 09:09 [place] % (Auto) 18.0 % 12/05/22 09:09 Eos % (Auto) 4.8 % 12/05/22 09:09 Baso % (Auto) 1.8 % 12/05/22 09:09 Neut # (Auto) 5.52 K/uL (1.40-6.50) 12/05/22 09:09 Lymph # (Auto) 1.32 K/uL (1.2-3.4) 12/05/22 09:09 [place] # (Auto) 1.64 K/uL (0.11-0.59) H 12/05/22 09:09 Eos # (Auto) 0.44 K/uL (0-0.50) 12/05/22 09:09 Baso # (Auto) 0.16 K/uL (0-0.2) 12/05/22 09:09 Immature Gran # (Auto) 0.04 K/uL (0.01-0.20) 12/05/22 09:09 PT 11.9 Seconds (9.0-12.0) 12/04/22 23:53 INR 1.1 (0.9-1.1) 12/04/22 23:53 APTT 31.6 Seconds (21.0-31.0) H 12/04/22 23:53 PTT Ratio 1.1 12/04/22 23:53 POC pH 7.41 (7.35-7.45) 12/05/22 01:16 POC pCO2 56 mmHg (35-46) H 12/05/22 01:16 POC pO2 70 mmHg (80-95) L 12/05/22 01:16 POC HCO3 35 lalo/L (19-24) H 12/05/22 01:16 POC Total CO2 37 mmol/L (24-31) H 12/05/22 01:16 POC Base Excess 11.0 lalo/L (-9-1.8) H 12/05/22 01:16 ABG pH 7.40 (7.35-7.45) 12/05/22 02:17 ABG pCO2 53 mmHg (35-46) H 12/05/22 02:17 ABG pO2 77 mmHg (80-95) L 12/05/22 02:17 ABG HCO3 33 mmol/L (19-24) H 12/05/22 02:17 POC ABG O2 Sat 93.0 % (90-95) 12/05/22 01:16 ABG O2 Saturation 95.2 % (90-95) H 12/05/22 02:17 ABG Base Excess 6.5 mEq/L (-9-1.8) H 12/05/22 02:17 Dharmesh Test Pos (Pos) 12/05/22 02:17 Oxygen Given 10L 12/05/22 02:17 Sodium 138 mmol/L (136-145) 12/08/22 06:29 Potassium 4.3 mmol/L (3.5-5.1) 12/08/22 06:29 Chloride 99 mmol/L (98-107) 12/08/22 06:29 Carbon Dioxide 25 mmol/L (21-32) 12/08/22 06:29 Anion Gap 14 (3-11) H 12/08/22 06:29 BUN 51 mg/dl (6-23) H 12/08/22 06:29 Creatinine 6.57 mg/dl (0.6-1.4) H* D 12/08/22 06:29 Est Cr Clr Drug Dosing 10.6 ml/min 12/08/22 06:29 Est GFR ( Amer) 9.2 ml/min 12/08/22 06:29 Est GFR (Non-Af Amer) 7.9 ml/min 12/08/22 06:29 BUN/Creatinine Ratio 7.8 (10-20) L 12/08/22 06:29 Glucose 72 mg/dl (70-99(Fasting)) 12/08/22 06:29 POC Glucose 125 mg/dl (70-99) H 12/05/22 07:24 Calcium 9.2 mg/dl (8.6-10.3) 12/08/22 06:29 Phosphorus 5.6 mg/dl (2.5-4.9) H 12/07/22 06:16 Magnesium 1.9 mg/dl (1.7-2.4) 12/07/22 06:16 Iron 20 mcg/dl (35-175) L 12/06/22 06:33 TIBC 145 mcg/dl (250-450) L 12/06/22 06:33 Unsaturated IBC 125 mcg/dl (155-355) L 12/06/22 06:33 Transferrin % Sat 14 % (20-50) L 12/06/22 06:33 Total Bilirubin 0.4 mg/dl (0.2-1.0) 12/06/22 06:33 AST 52 U/L (13-39) H 12/04/22 23:53 ALT 27 U/L (7-52) 12/04/22 23:53 Alkaline Phosphatase 86 U/L (34-104) 12/04/22 23:53 Lactate Dehydrogenase 217 U/L (86-244) 12/06/22 09:48 Troponin I High Sens 1593.8 pg/ml (0-20) H* D 12/05/22 09:09 B-Natriuretic Peptide > 4700 pg/ml (0-100) H 12/04/22 23:53 Total Protein 5.9 gm/dl (6.0-8.3) L 12/06/22 06:33 Albumin 2.9 gm/dl (3.4-5.0) L 12/06/22 06:33 Globulin 3.1 gm/dl (2.5-4.0) 12/04/22 23:53 Albumin/Globulin Ratio 1.0 (0.9-2) 12/04/22 23:53 Fluid Neutrophils % 2 % 12/06/22 Unknown Fluid Lymphocytes % 8 % 12/06/22 Unknown Fluid Eosinophils % 9 % 12/06/22 Unknown Fluid Meso/Macro/Nue[place] % 81 % 12/06/22 Unknown Fluid Comment 12/06/22 Unknown Pleural Fluid Source Left Lung 12/06/22 Unknown Pleural Color Ivana 12/06/22 Unknown Pleural Appearance Hazy 12/06/22 Unknown Pleural pH 7.45 (7.3-7.4) H 12/06/22 Unknown Pleural WBC (Auto) 431 /uL 12/06/22 Unknown Pleural RBC (Auto) 63597 /uL 12/06/22 Unknown Pleural Total Protein < 3.0 gm/dl 12/06/22 Unknown Pleural LDH 183 U/L 12/06/22 Unknown Pleural Glucose 82 mg/dl 12/06/22 Unknown Pleural Amylase 22 U/L 12/06/22 Unknown Hep Bs Antigen NON-REACTIVE (NON-REACTIVE) 12/04/22 23:53 Hep Bs Ag Confirmation TNP 12/04/22 23:53 Hep Bs Antibody, Quant <5 mIU/mL (> OR = 10) L 12/04/22 23:53 SARS-CoV-2, RNA, NAAT NEGATIVE (NEGATIVE) 12/05/22 01:05 Impressions Chest X-Ray 12/07/22 16:52 XR chest 2V PA/lateral CLINICAL HISTORY: f/u effusions TECHNIQUE: 2 views of the chest were obtained. Comparison: Comparison is made to chest radiograph 12/06/2022 FINDINGS: No lines and tubes are seen. Cardiomegaly is noted. Airspace opacities in the bilateral lower lungs. There is a moderate left and small right pleural effusion. IMPRESSION: Moderate left and small right pleural effusions. These appear essentially stable from prior exam. ACT 112: Negative or not required by law. Electronically signed by: Jose Nicholson M.D. 12/07/2022 6:35 PM Ordered Studies 12/06/22 08:39 US point of care ultrasound Urgent Hospital Course (1) Acute hypoxemic respiratory failure: (2) Pleural effusion: (3) Elevated troponin: (4) ESRD (end stage renal disease) on dialysis: (5) Acute heart failure with reduced ejection fraction and diastolic dysfunction: Plan Acute on chronic systolic and diastolic heart failure Acute hypoxic respiratory failure ESRD on HD Pleural effusion S/P left thoracentesis H/O p-ANCA vasculitis Elevated troponin thought to be secondary to demand ischemia due to volume overload Was initially on PD. Had staph aureus PD peritonitis last month associated with catheter malfunction/severe adhesions. PD cath was removed. Completed antibiotic treatment CXR showing Cardiomegaly, pulm edema, B/l Pleural effusion, with dependent consolidation Echo showed EF 40-45%, mild global hypokinesis of LV, mod conc LVH, trace MR, mild dil RV, RVSP 40-50 Continue dialysis as per nephrology Appreciate nephrology, cardiology, pulmonary input Saturating low 90s on room air Continue fluid restriction Continue metoprolol Carvedilol discontinued Monitor volume status Continue aspirin, statin, hydralazine, metoprolol, amlodipine Plan to discharge home today Had scheduled outpatient dialysis tomorrow Hyperkalemia Received patiromer Resolved Monitor DVT Px: Heparin SQ Code Status Full code Total Time Total Time Spent Total Time Spent (In Minutes): 55 minutes Discharge Plan Discharge Items Patient Disposition: Home - Self-Care Reason For Visit: RESPIRATORY FAILURE Discharge Diagnosis: Acute on chronic systolic and diastolic heart failure Acute hypoxic respiratory failure ESRD on HD Pleural effusion S/P left thoracentesis Hyperkalemia Activity: Per Instructions section Exercise/Sports: Wait until after follow-up appointment Non-emergency contact: Primary Care Provider and [employer] Char[employer] Operator Call non-emergency contact if: you have any medication questions, your symptoms worsen, your pain is concerning for you and you have a fever Follow-up/Referrals: Cisco Starkey MD [Primary Care Provider] - (Date & Time 12/13/2022 10:00 AM Provider Cisco Starkey MD [facility] ) Diet: Dialysis Renal and Heart Healthy Fluids: 1800ml (7 cups) Addtl Attending Provider Instructions: Follow-up with your primary care physician on 12/13/2022 10:00 AM as scheduled Follow-up with your transport rn for dialysis as scheduled tomorrow. Follow-up with your life coach for cardiac stress testing versus cardiac catheterization as outpatient. --- Your blood pressure medications were adjusted while you are hospitalized. Monitor your blood pressure regularly at home. Follow-up with your physician for further recommendations. Seek immediate medical attention if your symptoms reoccur or worsen Please take all medications as instructed on discharge list below. Please call if you have any questions or problems. You can reach a [facility] hospitalist on duty at [facility] 24 hours a day by calling [phone] Call your Primary Care doctor if any of the following symptoms or problems start or get worse: * Shortness of breath or difficulty breathing * Wake up at night short of breath * Chest pain * Cough * Swelling of your hands, feet, or legs * More fatigued or tired with your normal activity * Palpitations - sudden fast heart beats WEIGHT * Weigh yourself every morning after using the bathroom. * Use the same scale. * Wear the same amount of clothing. * Write your weight down on a chart. * Call your Primary Care doctor if you gain more than 2-3 pounds in 1-2 days. MEDICATIONS * Use this discharge instruction sheet for medication instructions. * Take your medications at the time your doctor ordered. * Do not skip a dose of your medicines. * If you miss a dose of medicine, take it as soon as possible, but DO NOT DOUBLE A DOSE. * Read your medicine information when you get home. * Know all of the side effects of your medicine. If in doubt, ask your pharmac ist * Call your Primary Care doctor's office if you have any side effects. * Be sure all of your doctors know what medicine and herbs you take (including cold, flu, and herbal medicine). Take the following with you to your follow-up doctor appointments: * Weight Chart * Medication List * List of questions Do not drink excessive alcohol, beer or wine. Pending Studies at Discharge: No Stand-Alone Forms: My [facility] [address] Bio, Smoking Cessation Medications and DC Order Prescriptions: New atorvastatin 40 mg Tablet 40 mg PO HS Qty: 30 1RF metoprolol succinate 25 mg Tablet Extended Release 24 Hr 25 mg PO BID Qty: 60 1RF aspirin 81 mg Tablet,Delayed Release (Dr/Ec) 81 mg PO QAM Qty: 30 1RF Continued calcitriol 0.5 mcg capsule 1.5 mcg PO DAILY Rx Instructions: 3 capsule dose cinacalcet [Sensipar] 30 mg tablet 30 mg PO DAILY RenaPlex-D 800 mcg-12.5 mg -2,000 unit Tablet 1 tab PO DAILY amlodipine 5 mg tablet 5 mg PO DAILY Veltassa 8.4 gram powder in packet 8.4 g PO QAM Rx Instructions: vigorously mix in 3 ounces of water and drink..it will not dissolve megestrol [Megace] 20 mg Tablet 20 mg PO QAM losartan [Cozaar] 50 mg Tablet 50 mg PO AMHS ergocalciferol (vitamin D2) [Vitamin D2] 1,250 mcg (50,000 unit) Capsule 1,250 mcg PO WK allopurinol 100 mg tablet 50 mg PO DAILY Changed hydralazine 50 mg tablet 50 mg PO BID Qty: 60 0RF Discontinued metoprolol tartrate 25 mg tablet 25 mg PO BID carvedilol 6.25 mg tablet 6.25 mg PO AMHS Discharge Orders: Discharge Order (Routine); Ordered 12/08/22 Ordered By: Yung Lama Admission Data Admit Date/Time: 12/05/22 05:22 Attending Provider: Yung Lama Admit Provider: Dawson De Los Santos Primary Care Provider: Cisco Starkey Other Providers: Dawson De Los Santos ; Rita Munson ; Maicol Damon ; Yocasta Morris Japheth E. ; Dustin Calljeas ; Angela Michel ; Suhail Moore ; Mitchell Brown
[2022-12-11] MEDS ORDERED: ERGOCALCIFEROL 50,000 UNITS 1250 MCG CAP PO SCH (09:00)
== END 2022-12-08 16:38 | disposition home or self-care (01) | DRG 291 ==
LOC: ED 23:37 → EDINP 12-05 05:22 → SUATTDRO 12-05 05:22 → 2S 12-05 06:59

== ENCOUNTER 2022-12-31 15:37 | Inpatient (IN) ==
--- NOTE | 2022-12-31 16:32 | Emergency Department Note ---
Impression & Plan SOB (shortness of breath), Pleural effusion, Hypoxia, Dialysis patient ED Provider Note NAME: DIMAS ERVIN AGE: 67 SEX: M : 1955 ARRIVES VIA: Ambulance INFORMANT: [Patient][ems] ED PROVIDER(S): [Tone Mi MD] CHIEF COMPLAINT: Short of breath HISTORY OF PRESENT ILLNESS: The patient is a 67-year-old male who has had increasing shortness of breath for about a week. He thinks he has excess fluid. The patient was at dialysis yesterday as scheduled and his O2 saturation was low at 82%. He was advised to come to the hospital but refused. Today, he felt more short of breath and presents for evaluation. He does not typically wear any oxygen. There has been no cough, no fever. The patient states that he does have an uncomfortable feeling in his lungs but he does not really have any chest pain. Of note, the patient speaks Luxembourger. The translation services were utilized PMHx/PSHx: See Below SOCIAL HISTORY: See Below. PHYSICAL EXAM: GENERAL: Patient is in no acute distress. HEENT: No acute trauma, normocephalic atraumatic, mucous membranes moist, no nasal congestion. NECK: No stridor, no adenopathy, no meningismus, trachea is midline. LUNGS: Diminished breath sounds bilaterally with some crackles bilaterally. Breath sounds are mostly diminished on the left. No respiratory distress, no wheezing HEART: 2/6 systolic murmur, regular rate and rhythm ABDOMEN: Soft, nontender, bowel sounds positive, no peritonitis. EXTREMITIES: No cyanosis or edema, full range of motion of all the joints without pain or difficulty, no signs for acute trauma. NEUROLOGIC: Oriented x 3, no acute motor or sensory deficits, no focal weakness. SKIN: No rash, no jaundice, no diaphoresis. DIFFERENTIAL DIAGNOSIS: CHF, pleural effusion, electrolyte imbalance, anemia, TN, pneumonia or bronchitis, among others. EMERGENCY DEPARTMENT COURSE/PROCEDURES: Prior/Outside records reviewed: Recent radiology reports. EMS notes. ECG per my interpretation: Indication was shortness of breath. The ECG shows a sinus rhythm with some PACs. The rate is 66. There is a potential old septal infarct. LVH is noted. There is some subtle ST elevation across the anterior leads. There is some nonspecific change to the lateral leads. No PVCs. The QTc is 415. Compared to an ECG from 07 Dec 2002, the ST elevation anteriorly has increased slightly. PACs are now present. Continuous Cardiac Monitoring per my interpretation: An order was placed for continuous cardiac monitoring. The monitor shows a rate of 68 with normal sinus rhythm. MEDICAL DECISION MAKING: There is no leukocytosis. The patient does have an anemia. His hemoglobin is improved compared to recent testing. There is a normal platelet count. No concerning coagulopathy. Creatinine is elevated consistent with his dialysis need. No concerning liver enzyme elevation. ECG shows a sinus rhythm with PACs, no obvious ST elevation. Cardiac enzyme testing x1 is slightly elevated. The patient has a history of a troponin elevation at baseline. COVID test returned negative. Chest film per my review shows bilateral pleural effusions, worse on the left. The patient was resting comfortably on nasal cannula O2 supplementation. I did contact Dr. Denise of nephrology. The patient will need dialyzed to help with the fluid. I spoke with the patient about his findings, hospitalization is indicated. In the past, the patient has undergone thoracentesis, this may again be required during this hospital stay. I spoke with case management, the on-call hospitalist was consulted. At the advice of nephrology, the patient was given IV Lasix, nitroglycerin paste as well as oral metolazone. DISPOSITION: Patient's presentation and findings warrant a hospital stay. 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 Fluid overload Hyperkalemia Hypertension Kidney transplant candidate reason for colonoscopy to get on list Nephrolithiasis Peritoneal dialysis catheter in place Peritoneal dialysis status per daughter--"in place with a hole" but currently not using Pleural effusion Restless leg syndrome Symptomatic anemia Surgical History H/O inguinal hernia repair History of colonoscopy History of cystoscopy History of thoracentesis History of tooth extraction Status post creation of arteriovenous fistula left arm Family History Other No family history of adverse response to anesthesia No significant family history Social History Smoking Status: Former smoker Second Hand Exposure: No; Do You Dip or Chew Tobacco: No; Hx Alcohol Use: No Hx Substance Use: No Preferred Language: Luxembourger Communication Ability: Effective Communication Ability Comment: does not speak any yoruba, only Luxembourger Communication Tools: IPad Director Treasurer Required: Yes Beliefs That Will Affect Care: None marital status: Current Living Situation: Family current occupational status: employed Other Information That Helps Us Care for You: No Feels Safe at Home: Yes Safety Concerns: Feels Safe At This Time Assistive Devices: None Allergies Allergies Allergy/AdvReac Type Severity Reaction Status Date / Time No Known Allergies Allergy Verified 12/31/22 19:22 Home Meds Home Medications Medication Instructions Recorded Confirmed ergocalciferol (vitamin D2) 1,250 1,250 mcg PO WK 10/28/20 12/31/22 mcg (50,000 unit) capsule (Vitamin D2) losartan 50 mg tablet (Cozaar) 50 mg PO AMHS 10/28/20 12/31/22 allopurinol 100 mg tablet 50 mg PO DAILY 06/12/22 12/31/22 calcitriol 0.5 mcg capsule 1.5 mcg PO DAILY 08/19/22 12/31/22 cinacalcet 30 mg tablet (Sensipar) 30 mg PO DAILY 08/19/22 12/31/22 vit B,C-folic ac 800 mcg-zinc 12.5 1 tab PO DAILY 08/19/22 12/31/22 mg-selen-D3 2,000 unit-vit E tablet (RenaPlex-D) amlodipine 5 mg tablet 5 mg PO DAILY 11/10/22 12/31/22 patiromer calcium sorbitex 8.4 8.4 g PO QAM 11/10/22 12/31/22 gram oral powder packet (Veltassa) megestrol 20 mg tablet 20 mg PO QAM 12/05/22 12/31/22 Previous Rx's Medication Instructions Recorded aspirin 81 mg tablet,delayed 81 mg PO QAM #30 tabs 12/08/22 release atorvastatin 40 mg tablet 40 mg PO HS #30 tabs 12/08/22 hydralazine 50 mg tablet 50 mg PO BID #60 tabs 12/08/22 metoprolol succinate 25 mg 25 mg PO BID #60 tabs 12/08/22 tablet,extended release 24 hr Results & Data (ED) Vital Signs Vital Signs - 24 hr 12/31/22 15:54 12/31/22 15:54 12/31/22 16:00 Temperature 36.5 C Temperature Source Oral Pulse Rate 68 70 Pulse Rate from SpO2 Sensor Respiratory Rate 18 Respiratory Effort / Characteristics Non-Labored Spontaneous Respiratory Depth Normal Respiratory Pattern Regular Blood Pressure 140/109 H Blood Pressure Mean 119 Blood Pressure Position Sitting Pulse Oximetry 85 L 93 Oxygen Delivery Method Nasal Cannula Nasal Cannula Oxygen Flow Rate 2 2 Sepsis Recent Fever Within 48 Hours No Sepsis New/Unexplained Change in Mental Status N/A Sepsis Action Taken by Nursing No Action Required 12/31/22 16:32 12/31/22 15:52 12/31/22 16:00 Temperature Temperature Source Pulse Rate 69 70 Pulse Rate from SpO2 Sensor Respiratory Rate 34 H 27 H Respiratory Effort / Characteristics Respiratory Depth Respiratory Pattern Blood Pressure Blood Pressure Mean Blood Pressure Position Pulse Oximetry 94 Oxygen Delivery Method Nasal Cannula Oxygen Flow Rate 2 Sepsis Recent Fever Within 48 Hours Sepsis New/Unexplained Change in Mental Status Sepsis Action Taken by Nursing 12/31/22 16:30 12/31/22 17:00 12/31/22 17:30 Temperature Temperature Source Pulse Rate 75 71 57 L Pulse Rate from SpO2 Sensor Respiratory Rate 29 H 25 H 28 H Respiratory Effort / Characteristics Respiratory Depth Respiratory Pattern Blood Pressure Blood Pressure Mean Blood Pressure Position Pulse Oximetry Oxygen Delivery Method Oxygen Flow Rate Sepsis Recent Fever Within 48 Hours Sepsis New/Unexplained Change in Mental Status Sepsis Action Taken by Nursing 12/31/22 18:00 Temperature Temperature Source Pulse Rate 69 Pulse Rate from SpO2 Sensor 71 Respiratory Rate 30 H Respiratory Effort / Characteristics Respiratory Depth Respiratory Pattern Blood Pressure Blood Pressure Mean Blood Pressure Position Pulse Oximetry 94 Oxygen Delivery Method Oxygen Flow Rate Sepsis Recent Fever Within 48 Hours Sepsis New/Unexplained Change in Mental Status Sepsis Action Taken by [facility] Medications Current Medication List: was personally reviewed by me Laboratory Data Attestation: I reviewed the patient's lab results. 12/31/22 17:03 12/31/22 17:03 Lab Results 12/31/22 12/31/22 12/31/22 Range/Units 17:03 17:03 17:03 WBC 7.06 (4.8-10.8) K/ul RBC 4.13 L (4.70-6.10) M/uL Hgb 11.6 L (14.0-18.0) g/dl Hct 36.9 L (42.0-52.0) % MCV 89.3 (80.0-100.0) fL MCH 28.1 (25.0-34.0) pg MCHC 31.4 L (32.0-36.0) g/dL RDW Std Deviation 62.6 H (36.4-46.3) fL RDW Coeff of Diamond 19.4 H (11.5-14.5) % Plt Count 308 (130-400) K/uL MPV 10.2 (9.4-12.4) fL Immature Gran % (Auto) 0.1 % Neut % (Auto) 59.4 % Lymph % (Auto) 17.8 % [place] % (Auto) 13.3 % Eos % (Auto) 8.1 % Baso % (Auto) 1.3 % Neut # (Auto) 4.19 (1.40-6.50) K/uL Lymph # (Auto) 1.26 (1.2-3.4) K/uL [place] # (Auto) 0.94 H (0.11-0.59) K/uL Eos # (Auto) 0.57 H (0-0.50) K/uL Baso # (Auto) 0.09 (0-0.2) K/uL Immature Gran # (Auto) 0.01 (0.01-0.20) K/uL PT Cancelled INR Cancelled APTT Cancelled PTT Ratio Cancelled Sodium 140 (136-145) mmol/L Potassium 3.9 (3.5-5.1) mmol/L Chloride 95 L (98-107) mmol/L Carbon Dioxide 38 H (21-32) mmol/L Anion Gap 7 (3-11) BUN 36 H (6-23) mg/dl Creatinine 4.98 H* (0.6-1.4) mg/dl Est Cr Clr Drug Dosing Not Reportable Est GFR ( Amer) 12.8 ml/min Est GFR (Non-Af Amer) 11.1 ml/min BUN/Creatinine Ratio 7.2 L (10-20) Glucose 102 H (70-99(Fasting)) mg/dl Calcium 10.0 (8.6-10.3) mg/dl Phosphorus 5.1 H (2.5-4.9) mg/dl Magnesium 2.0 (1.7-2.4) mg/dl Total Bilirubin 0.6 (0.2-1.0) mg/dl AST 17 (13-39) U/L ALT 9 (7-52) U/L Alkaline Phosphatase 65 (34-104) U/L Troponin I High Sens 163.2 H* (0-20) pg/ml Total Protein 6.3 (6.0-8.3) gm/dl Albumin 3.5 (3.4-5.0) gm/dl Globulin 2.8 (2.5-4.0) gm/dl Albumin/Globulin Ratio 1.3 (0.9-2) SARS-CoV-2, RNA, NAAT (NEGATIVE) 12/31/22 Range/Units 17:03 WBC (4.8-10.8) K/ul RBC (4.70-6.10) M/uL Hgb (14.0-18.0) g/dl Hct (42.0-52.0) % MCV (80.0-100.0) fL MCH (25.0-34.0) pg MCHC (32.0-36.0) g/dL RDW Std Deviation (36.4-46.3) fL RDW Coeff of Diamond (11.5-14.5) % Plt Count (130-400) K/uL MPV (9.4-12.4) fL Immature Gran % (Auto) % Neut % (Auto) % Lymph % (Auto) % [place] % (Auto) % Eos % (Auto) % Baso % (Auto) % Neut # (Auto) (1.40-6.50) K/uL Lymph # (Auto) (1.2-3.4) K/uL [place] # (Auto) (0.11-0.59) K/uL Eos # (Auto) (0-0.50) K/uL Baso # (Auto) (0-0.2) K/uL Immature Gran # (Auto) (0.01-0.20) K/uL PT INR APTT PTT Ratio Sodium (136-145) mmol/L Potassium (3.5-5.1) mmol/L Chloride (98-107) mmol/L Carbon Dioxide (21-32) mmol/L Anion Gap (3-11) BUN (6-23) mg/dl Creatinine (0.6-1.4) mg/dl Est Cr Clr Drug Dosing Est GFR ( Amer) ml/min Est GFR (Non-Af Amer) ml/min BUN/Creatinine Ratio (10-20) Glucose (70-99(Fasting)) mg/dl Calcium (8.6-10.3) mg/dl Phosphorus (2.5-4.9) mg/dl Magnesium (1.7-2.4) mg/dl Total Bilirubin (0.2-1.0) mg/dl AST (13-39) U/L ALT (7-52) U/L Alkaline Phosphatase (34-104) U/L Troponin I High Sens (0-20) pg/ml Total Protein (6.0-8.3) gm/dl Albumin (3.4-5.0) gm/dl Globulin (2.5-4.0) gm/dl Albumin/Globulin Ratio (0.9-2) SARS-CoV-2, RNA, NAAT NEGATIVE (NEGATIVE) Administered Medications Atorvastatin Calcium (Atorvastatin 40 Mg Tab) 40 mg PO HS MYLES Stop: 01/30/23 20:59 Last Admin: 12/31/22 21:31 Dose: 40 mg Documented By: DESTINY Heparin Sodium (Porcine) (Heparin Sod 5,000 Unit/0.5 Ml Vial) 5,000 units SQ Q12 MYLES Stop: 01/30/23 20:59 Last Admin: 12/31/22 21:31 Dose: 5,000 units Documented By: DESTINY Hydralazine HCl (Hydralazine Tab 50 Mg Tab) 50 mg PO BID MYLES Stop: 01/30/23 20:59 Last Admin: 12/31/22 21:31 Dose: 50 mg Documented By: DESTINY Losartan Potassium (Losartan Potassium 50 Mg Tab) 50 mg PO AMHS MYLES Stop: 01/30/23 20:59 Last Admin: 12/31/22 21:31 Dose: 50 mg Documented By: DESTINY Metoprolol Succinate (Metoprolol Succ 25mg Ext Rel Tab) 25 mg PO BID MYLES Stop: 01/30/23 20:59 Last Admin: 12/31/22 21:31 Dose: 25 mg Documented By: DESTINY Discontinued Medications Furosemide (Furosemide 10 Mg/Ml 10 Ml Vial) 100 mg IV ONE ONE Stop: 12/31/22 18:07 Last Admin: 12/31/22 22:16 Dose: 100 mg Documented By: DESTINY Hydralazine HCl (Hydralazine Hcl 20 Mg/Ml Vial) 7.5 mg IV NOW STA Stop: 12/31/22 22:24 Last Admin: 12/31/22 22:40 Dose: 7.5 mg Documented By: DESTINY Labetalol HCl (Labetalol Hcl Iv 5 Mg/Ml 20ml) 10 mg IV NOW STA Stop: 12/31/22 19:53 Last Admin: 12/31/22 20:01 Dose: 10 mg Documented By: DESTINY Co-signed By: DAGOBERTO Labetalol HCl (Labetalol Hcl Iv 5 Mg/Ml 20ml) Confirm Administered Dose 10 mg IV .STK-MED ONE Stop: 12/31/22 20:01 Last Admin: 12/31/22 20:04 Dose: Not Given Documented By: DESTINY Labetalol HCl (Labetalol Hcl Iv 5 Mg/Ml 20ml) 10 mg IV NOW STA Stop: 12/31/22 23:50 Last Admin: 12/31/22 23:55 Dose: 10 mg Documented By: DESTINY Co-signed By: MAURICIO Metolazone (Metolazone 5 Mg Tablet) 5 mg PO NOW ONE Stop: 12/31/22 18:07 Last Admin: 12/31/22 19:15 Dose: 5 mg Documented By: BRIONNA Nitroglycerin (Nitroglycerin 2% Ointment 30gm Tube) 2 inch EXT NOW STA Stop: 12/31/22 18:07 Last Admin: 12/31/22 19:14 Dose: 2 inch Documented By: BRIONNA Imaging Data Radiologist's Impression: Chest X-Ray 12/31/22 16:00 XR chest 1V portable CLINICAL HISTORY: Dyspnea. COMPARISON STUDY: Chest CT September 11, 2022. Chest radiograph December 07, 2022. FINDINGS: There is no pneumothorax. Moderate left and oweoq-ih-[id number] right pleural effusions are noted. Left pleural effusion has slightly increased in size since chest radiograph of December 07, 2022. There are associated airspace opacities. There is pulmonary vascular congestion with possible mild pulmonary edema. Cardiomediastinal silhouette is stable. IMPRESSION: 1. Moderate left and weqtv-[id number] right pleural effusions. Associated airspace opacities could reflect atelectasis or consolidation. Radiographic follow-up is recommended. 2. Cardiomegaly. Pulmonary vascular congestion with possible mild pulmonary edema. ACT 112: Negative or not required by law. Electronically signed by: Sivakumar Renee M.D. 12/31/2022 4:45 PM Discharge Plan Visit Data Chief Complaint: Shortness of Breath/Dyspnea ED Provider: Tone Mi Discharge Problem: SOB (shortness of breath), Pleural effusion, Hypoxia, Dialysis patient Patient Disposition: Admitted As Inpatient Condition: Fair Discharge Instructions Interventions: ED Discharge Assessment Last Done: 12/31/22 19:29
--- NOTE | 2022-12-31 16:47 | XRay Report ---
XR chest 1V portable CLINICAL HISTORY: Dyspnea. COMPARISON STUDY: Chest CT September 11, 2022. Chest radiograph December 07, 2022. FINDINGS: There is no pneumothorax. Moderate left and [id number] right pleural effusions are n oted. Left pleural effusion has slightly increased in size since chest radiograph of December 07, 2022. Th ere are associated airspace opacities. There is pulmonary vascular congestion with possible mild pulm onary edema. Cardiomediastinal silhouette is stable. IMPRESSION: 1. Moderate left and xznep-qn-vyxyqnbr right pleural effusions. Associated airspace opacities could r eflect atelectasis or consolidation. Radiographic follow-up is recommended. 2. Cardiomegaly. Pulmonary vascular congestion with possible mild pulmonary edema. ACT 112: Negative or not required by law. Electronically signed by: Sivakumar Renee M.D. 12/31/2022 4:45 PM
[2022-12-31 17:31] LABS: Basophils # (auto) 0.09 K/uL (0-0.2); Basophils % (auto) 1.3 %; Eosinophils # (auto) 0.57 K/uL (0-0.50); Eosinophils % (auto) 8.1 %; Hematocrit (blood only) 36.9 % (42.0-52.0); Hemoglobin 11.6 g/dl (14.0-18.0); Immature Granulocytes # (auto) 0.01 K/uL (0.01-0.20); Immature Granulocytes % (auto) 0.1 %; Lymphocytes # (auto) 1.26 K/uL (1.2-3.4); Lymphocytes % (auto) 17.8 %; Mean Corpuscular Hemoglobin 28.1 pg (25.0-34.0); Mean Corpuscular Hgb Conc 31.4 g/dL (32.0-36.0); Mean Corpuscular Volume 89.3 fL (80.0-100.0); Mean Platelet Volume 10.2 fL (9.4-12.4); Monocytes # (auto) 0.94 K/uL (0.11-0.59); Monocytes % (auto) 13.3 %; Neutrophils # (auto) 4.19 K/uL (1.40-6.50); Neutrophils % (auto) 59.4 %; Platelet Count 308 K/uL (130-400); RDW Coefficient of Variation 19.4 % (11.5-14.5); RDW Standard Deviation 62.6 fL (36.4-46.3); Red Blood Count 4.13 M/uL (4.70-6.10); White Blood Count 7.06 K/ul (4.8-10.8)
[2022-12-31 17:58] LABS: Alanine Aminotransferase 9 U/L (7-52); Albumin Globulin Ratio 1.3 (0.9-2); Albumin Level 3.5 gm/dl (3.4-5.0); Alkaline Phosphatase 65 U/L (34-104); Anion Gap 7 (3-11); Aspartate Aminotransferase 17 U/L (13-39); BUN Creatinine Ratio 7.2 (10-20); Bilirubin,Total 0.6 mg/dl (0.2-1.0); Blood Urea Nitrogen 36 mg/dl (6-23); Carbon Dioxide 38 mmol/L (21-32); Chloride 95 mmol/L (98-107); Est GFR (African American) 12.8 ml/min; Est GFR (Non-African American) 11.1 ml/min; Globulin 2.8 gm/dl (2.5-4.0); Glucose 102 mg/dl (70-99(Fasting)); Phosphorus 5.1 mg/dl (2.5-4.9); Potassium 3.9 mmol/L (3.5-5.1); Sodium 140 mmol/L (136-145); Total Protein 6.3 gm/dl (6.0-8.3); Troponin I High Sensitivity 163.2 pg/ml (0-20)
[2022-12-31] MEDS ORDERED: NITROGLYCERIN 2% OINTMENT 30GM TUBE EXT STA (18:06)
[2022-12-31] MEDS ORDERED: FUROSEMIDE 10 MG/ML 10 ML VIAL IV ONE (18:06)
[2022-12-31] MEDS ORDERED: metOLazone 5 MG TABLET PO ONE (18:06)
--- NOTE | 2022-12-31 18:28 | History & Physical Report ---
Date of Service December 31, 2022 Assessment & Plan (1) Acute hypoxemic respiratory failure: (2) Fluid overload: (3) Pleural effusion: (4) Acute heart failure with reduced ejection fraction and diastolic dysfunction: (5) ESRD on hemodialysis: (6) Elevated troponin: Plan 67-year-old male with history of ESRD on hemodialysis, HFrEF presented to ED with progressively worsening shortness of breath, chest tightness over the past week CXR: 1. Moderate left and gfyjv-qc-edeeynii right pleural effusions. Associated airspace opacities could reflect atelectasis or consolidation. Radiographic follow-up is recommended. 2. Cardiomegaly. Pulmonary vascular congestion with possible mild pulmonary edema. Echo 12/05/22- EF 40-45% with grade 1 diastolic dysfunction, RVSP 40-50, mild hypokinetic LV Acute hypoxic respiratory failure- due to volume overload from pulm vasc congestion/bilateral pleural effusion in setting of HFrEF and ESRD on HD - continue supplemental oxygen, wean off as tolerated - ordered lasix and metolazone per nephro but patient does not make urine, so doubt it will help - BIPAP prn if needed - Plan for HD later today or tomorrow per nephro - Will consult pulm for thoracentesis- (pt had left thoracentesis done at [place] on December 01) - No evidence of PNA or infection- so no indication for ABx currently - Repeat CXR in am B/L pleural effusion L>R- Plan as above Decompensated HFrEF- recent echo reviewed. No need for repeat echo. Plan as above ESRD on HD MWF- HD per nephro as above. LUE AV fistula noted. Hyperparathyroidism- continue sensipar HTN- continue cozaar, toprol, norvasc, HLZ with hold parameters Elevated troponin- high sens trop of 163. suspected demand ischemia due to #1 and ESRD. EKG with T wave changes similar to before. Currently no CP. Will however trend trop for completeness. If trop trends up significantly or has CP or dynamic changes in EKG, consider heparin drip and cardio eval. DVT ppx- sc heparin Dispo- PCU on tele Full code History of Present Illness Primary Care Provider: Cisco Starkey MD 67-year-old Mongolian speaking male with history of ESRD on hemodialysis MWF, HFrEF, hyperparathyroidism, hypertension who presented to ED with shortness of breath for 1 week and chest tightness for 3 days. History and exam accomplished with help of Mongolian filer and sander over the ipad. Patient had his hemodialysis yesterday and was noted to have oxygen saturation 82% and was recommended to go to the hospital however patient refused. Today he had worsening shortness of breath and presented to the hospital for the same. Patient states that he has been feeling short of breath with exertion for the past week which has been progressively getting worse. Has orthopnea and unable to sleep at night for the past 2 days. Shortness of breath improved with sitting up. Also had chest tightness radiating from left to right side of the heart for the past 3 days, intermittent. Did not require any sublingual nitroglycerin. He is chest tightness improved after he was placed on supplemental oxygen in the ambulance today. He has not had any chest tightness since. He feels better with supplemental oxygen in the emergency. He denies any fever, chills, cough, phlegm. Denies any sick contacts. He denies tobacco or alcohol use. States he is compliant to his dialysis and medications. Of note, patient states he had similar episode a month ago and had thoracentesis of left side on December 01 at [place]. ED physician spoke with nephrology who recommended Lasix, metolazone, Nitropaste with plans for dialysis later today or tomorrow. He states he does not make any urine and does not think the diuretics in the emergency will help him. He has not required any BiPAP in the past. Allergies Allergy/AdvReac Type Severity Reaction Status Date / Time No Known Allergies Allergy Verified 12/31/22 19:22 Home Medications Medication Instructions Recorded Confirmed Type ergocalciferol (vitamin D2) 1,250 1,250 mcg PO WK 10/28/20 12/31/22 History mcg (50,000 unit) capsule (Vitamin D2) losartan 50 mg tablet (Cozaar) 50 mg PO AMHS 10/28/20 12/31/22 History allopurinol 100 mg tablet 50 mg PO DAILY 06/12/22 12/31/22 History calcitriol 0.5 mcg capsule 1.5 mcg PO DAILY 08/19/22 12/31/22 History cinacalcet 30 mg tablet (Sensipar) 30 mg PO DAILY 08/19/22 12/31/22 History vit B,C-folic ac 800 mcg-zinc 12.5 1 tab PO DAILY 08/19/22 12/31/22 History mg-selen-D3 2,000 unit-vit E tablet (RenaPlex-D) amlodipine 5 mg tablet 5 mg PO DAILY 11/10/22 12/31/22 History patiromer calcium sorbitex 8.4 8.4 g PO QAM 11/10/22 12/31/22 History gram oral powder packet (Veltassa) megestrol 20 mg tablet 20 mg PO QAM 12/05/22 12/31/22 History aspirin 81 mg tablet,delayed 81 mg PO QAM #30 tabs 12/08/22 12/31/22 Rx release atorvastatin 40 mg tablet 40 mg PO HS #30 tabs 12/08/22 12/31/22 Rx hydralazine 50 mg tablet 50 mg PO BID #60 tabs 12/08/22 12/31/22 Rx metoprolol succinate 25 mg 25 mg PO BID #60 tabs 12/08/22 12/31/22 Rx tablet,extended release 24 hr Past Med/Surg History Medical History Acute upper gastrointestinal bleeding Anemia Anemia of chronic disease AV fistula Benign prostatic hyperplasia with urinary obstruction Dialysis AV fistula infection Dialysis AV fistula malfunction ESRD (end stage renal disease) on dialysis HD patient follows w/ Dr Munson [facility] 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 Fluid overload Hyperkalemia Hypertension Kidney transplant candidate reason for colonoscopy to get on list Nephrolithiasis Peritoneal dialysis catheter in place Peritoneal dialysis status per daughter--"in place with a hole" but currently not using Pleural effusion Restless leg syndrome Symptomatic anemia Surgical History H/O inguinal hernia repair History of colonoscopy History of cystoscopy History of thoracentesis History of tooth extraction Status post creation of arteriovenous fistula left arm Family History Other No family history of adverse response to anesthesia No significant family history Social History Smoking Status: Never smoker Second Hand Exposure: No; Do You Dip or Chew Tobacco: No; Hx Alcohol Use: No Hx Substance Use: No Preferred Language: Lithuanian Communication Ability: Effective Communication Ability Comment: does not speak any saudi arabian, only Mongolian Communication Tools: IPad Psych Assistant Required: Yes Beliefs That Will Affect Care: None marital status: Current Living Situation: Family current occupational status: employed Feels Safe at Home: Yes Assistive Devices: None Review of Systems Review of Systems: All systems reviewed & are unremarkable except as noted in Subjective Physical Exam Physical Exam: General: Sitting comfortably in bed, not in acute distress, on NC 2 L HEENT: EOMI, BRADY, MMM Chest: Clear breath sounds bilaterally decreased at bases, no wheezes or crackles CVS: Regular rate and rhythm, normal heart sounds, no murmur Abdomen: Soft, non tender, not distended, normal bowel sounds Neuro: Awake, alert, oriented, conversing well, non focal Extremities: No cyanosis, clubbing or edema LUE AV fistula noted Results & Data Results & Data Vital Signs (Past 12 Hours) Vital Signs Temp Pulse Resp BP Pulse Ox O2 Del Method O2 Flow Rate 12/31/22 16:32 94 Nasal Cannula 2 12/31/22 16:00 93 Nasal Cannula 2 12/31/22 15:54 70 12/31/22 15:54 36.5 C 68 18 140/109 H 85 L Nasal Cannula 2 Laboratory Results Short CBC 12/31/22 Range/Units 17:03 WBC 7.06 (4.8-10.8) K/ul Hgb 11.6 L (14.0-18.0) g/dl Hct 36.9 L (42.0-52.0) % Plt Count 308 (130-400) K/uL BMP 12/31/22 17:03 Sodium 140 Potassium 3.9 Chloride 95 L Carbon Dioxide 38 H BUN 36 H Creatinine 4.98 H* Glucose 102 H Calcium 10.0 Liver Function 12/31/22 Range/Units 17:03 Total Bilirubin 0.6 (0.2-1.0) mg/dl AST 17 (13-39) U/L ALT 9 (7-52) U/L Alkaline Phosphatase 65 (34-104) U/L Albumin 3.5 (3.4-5.0) gm/dl Diagnostic Findings Chest X-Ray 12/31/22 16:00 XR chest 1V portable CLINICAL HISTORY: Dyspnea. COMPARISON STUDY: Chest CT September 11, 2022. Chest radiograph December 07, 2022. FINDINGS: There is no pneumothorax. Moderate left and qsbom-en-zoxwyemk right pleural effusions are noted. Left pleural effusion has slightly increased in size since chest radiograph of December 07, 2022. There are associated airspace opacities. There is pulmonary vascular congestion with possible mild pulmonary edema. Cardiomediastinal silhouette is stable. IMPRESSION: 1. Moderate left and hylbi-hb-mjdkalsr right pleural effusions. Associated airspace opacities could reflect atelectasis or consolidation. Radiographic follow-up is recommended. 2. Cardiomegaly. Pulmonary vascular congestion with possible mild pulmonary edema. ACT 112: Negative or not required by law. Electronically signed by: Sivakumar Renee M.D. 12/31/2022 4:45 PM Code Status & VTE Plan VTE Prophylaxis Plan VTE Prophylaxis will be ordered: Yes
[2022-12-31] MEDS ORDERED: LABETALOL HCL IV 5 MG/ML 20ML IV STA ×2 (19:52→23:49)
[2022-12-31] MEDS ORDERED: LABETALOL HCL IV 5 MG/ML 20ML IV ONE (20:00)
[2022-12-31 20:06] LABS: INR 1.1 (0.9-1.1); Partial Thromboplastin Ratio 1.2; Partial Thromboplastin Time 32.5 Seconds (21.0-31.0); Prothrombin Time 11.7 Seconds (9.0-12.0)
[2022-12-31] MEDS: LOSARTAN POTASSIUM 50 MG TAB PO SCH (21:31)
[2022-12-31] MEDS: METOPROLOL SUCC 25MG EXT REL TAB PO SCH (21:31)
[2022-12-31] MEDS: ATORVASTATIN 40 MG TAB PO SCH (21:31)
[2022-12-31] MEDS: HEPARIN SOD 5,000 UNIT/0.5 ML VIAL SQ SCH (21:31)
[2022-12-31] MEDS: hydrALAZINE TAB 50 MG TAB PO SCH (21:31)
[2022-12-31] MEDS ORDERED: hydrALAZINE HCL 20 MG/ML VIAL IV STA (22:23)
[2023-01-01 02:53] LABS: Hematocrit (blood only) 35.7 % (42.0-52.0); Hemoglobin 11.2 g/dl (14.0-18.0); Mean Corpuscular Hemoglobin 27.8 pg (25.0-34.0); Mean Corpuscular Hgb Conc 31.4 g/dL (32.0-36.0); Mean Corpuscular Volume 88.6 fL (80.0-100.0); Platelet Count 271 K/uL (130-400); RDW Standard Deviation 61.2 fL (36.4-46.3); Red Blood Count 4.03 M/uL (4.70-6.10); White Blood Count 7.26 K/ul (4.8-10.8)
[2023-01-01 06:21] LABS: Calcium 9.6 mg/dl (8.6-10.3); Potassium 4.1 mmol/L (3.5-5.1)
[2023-01-01 06:38] LABS: BUN Creatinine Ratio 7.2 (10-20); Creatinine Clr Calc Pharmacy 11.6 ml/min; Est GFR (African American) 11.2 ml/min; Est GFR (Non-African American) 9.7 ml/min; Phosphorus 6.1 mg/dl (2.5-4.9)
--- NOTE | 2023-01-01 07:35 | Electrocardiogram Report ---
Test Reason : Blood Pressure : / mmHG Vent. Rate : 066 BPM Atrial Rate : 066 BPM P-R Int : 180 ms QRS Dur : 082 ms QT Int : 396 ms P-R-T Axes : 058 000 201 degrees QTc Int : 415 ms Sinus rhythm with Premature atrial complexes Possible Left atrial enlargement Left ventricular hypertrophy with repolarization abnormality Abnormal ECG When compared with ECG of 07-DEC-2022 10:39, Significant changes have occurred Confirmed by Prabhu Abrams ([id number]) on 01/01/2023 7:34:39 AM Referred By: REFERRED SELF Confirmed By:Juancho Abrams
[2023-01-01] MEDS: CINACALCET HCL 30 MG TAB PO SCH (07:55)
[2023-01-01] MEDS: hydrALAZINE TAB 50 MG TAB PO SCH ×2 (07:55→20:16)
[2023-01-01] MEDS: MEGESTROL ACETATE 40 MG TAB PO SCH (07:55)
[2023-01-01] MEDS: CALCITRIOL 0.25 MCG CAPSULE PO SCH (07:56)
[2023-01-01] MEDS: allopurinoL 100 MG TAB PO SCH (07:56)
[2023-01-01] MEDS: LOSARTAN POTASSIUM 50 MG TAB PO SCH ×2 (07:56→20:16)
[2023-01-01] MEDS: amLODIPine BESYLATE 5 MG TAB PO SCH (07:56)
[2023-01-01] MEDS: ASPIRIN 81 MG ECTAB PO SCH (07:57)
[2023-01-01] MEDS: METOPROLOL SUCC 25MG EXT REL TAB PO SCH ×2 (07:57→20:16)
[2023-01-01] MEDS ORDERED: NON-FORMULARY MEDICATION (Vit B,C-Fa-Zinc-Selen-Vit D3-E [Renaplex-D] 800 mcg-12.5 mg -2,0 PO SCH (09:00)
--- NOTE | 2023-01-01 10:04 | XRay Report ---
XR chest 1V portable CLINICAL HISTORY: SOB TECHNIQUE: Single frontal radiograph of the chest was obtained. Comparison: Comparison is made to chest radiograph 12/31/2022 FINDINGS: No lines and tubes are seen. Cardiomegaly is noted. Small right and moderate left pleural effusions n oted. Bilateral lower lung predominant airspace opacities noted. IMPRESSION: Small right and moderate left pleural effusions with underlying airspace opacities which likely refle ct atelectasis with or without superimposed pneumonia/aspiration. These are slightly increased in con spicuity from prior exam. ACT 112: Negative or not required by law. Electronically signed by: Jose Nicholson M.D. 01/01/2023 10:02 AM
[2023-01-01] MEDS ORDERED: NITROGLYCERIN SL 0.4 MG/TAB TAB SL STA (11:18)
[2023-01-01] MEDS: PATIROMER CALCIUM SORBITEX 8.4 GM PACK PO SCH (12:07)
[2023-01-01] MEDS: HEPARIN SOD 5,000 UNIT/0.5 ML VIAL SQ SCH ×2 (12:10→20:16)
--- NOTE | 2023-01-01 13:39 | Hospitalist Progress Note ---
Date of Service January 01, 2023 Assessment & Plan (1) Acute hypoxemic respiratory failure: (2) Fluid overload: (3) Pleural effusion: (4) Acute heart failure with reduced ejection fraction and diastolic dysfunction: (5) ESRD on hemodialysis: (6) Elevated troponin: Plan 67-year-old male with history of ESRD on hemodialysis, HFrEF presented to ED with progressively worsening shortness of breath, chest tightness over the past week CXR: 1. Moderate left and gfytn-eo-szweikyz right pleural effusions. Associated airspace opacities could reflect atelectasis or consolidation. Radiographic follow-up is recommended. 2. Cardiomegaly. Pulmonary vascular congestion with possible mild pulmonary edema. Echo 12/05/22- EF 40-45% with grade 1 diastolic dysfunction, RVSP 40-50, mild hypokinetic LV Acute hypoxic respiratory failure- due to volume overload from pulm vasc congestion/bilateral pleural effusion in setting of HFrEF and ESRD on HD Status post dialysis on January 01 with removal of 3 L. Discussed with nephrology; may need dialysis tomorrow am. - continue supplemental oxygen, wean off as tolerated - Will consult pulm for thoracentesis- (pt had left thoracentesis done at [place] on December 01) - No evidence of PNA or infection- so no indication for ABx currently B/L pleural effusion L>R- Plan as above Decompensated HFrEF- recent echo reviewed. No need for repeat echo. Plan as above ESRD on HD MWF- HD per nephro as above. LUE AV fistula noted. Hyperparathyroidism- continue sensipar HTN- continue cozaar, toprol, norvasc, HLZ with hold parameters Elevated troponin- high sens trop of 163. suspected demand ischemia due to #1 and ESRD. EKG with T wave changes similar to before. Troponin down trended. Continue to monitor for now. As needed nitro sublingual. DVT ppx- sc heparin Dispo- PCU on tele Full code PT OT ordered Time spent evaluating patient, direct bedside care, chart review, placing orders, interpretation of diagnostic studies, discussion with consultants, patient, and family members, as well as other required patient management activities is 60 minutes Please note the above document was generated using voice recognition software. It may contain grammatical, syntax or spelling errors. Any formal questions or concerns about the content, text or information contained within the body of this dictation should be directly addressed to the provider for clarification Admission and Anticipated Discharge Date Admission Date: December 31, 2022 Subjective Patient seen and examined at bedside. He is lying in the bed comfortably; reports that his shortness of breath and chest pain has improved. Review of Systems Review of Systems: All systems reviewed & are unremarkable except as noted in Subjective Physical Exam 2 Physical Exam: General: Sitting comfortably in bed, not in acute distress, on NC 2 L HEENT: EOMI, BRADY, MMM Chest: Clear breath sounds bilaterally decreased at bases, no wheezes or crackles CVS: Regular rate and rhythm, normal heart sounds, no murmur Abdomen: Soft, non tender, not distended, normal bowel sounds Neuro: Awake, alert, oriented, conversing well, non focal Extremities: No cyanosis, clubbing or edema LUE AV fistula noted Results & Data Results & Data Vital Signs (Past 12 Hours) Vital Signs Temp Pulse Pulse Pulse Resp BP BP 01/01/23 13:00 01/01/23 11:32 36.3 C L 135/84 01/01/23 11:00 63 119/83 01/01/23 10:25 69 01/01/23 10:30 58 L 151/97 H 01/01/23 10:00 55 L 139/87 01/01/23 09:30 70 179/84 H 01/01/23 09:00 65 158/97 H 01/01/23 08:30 72 173/100 H 01/01/23 08:28 78 179/89 H 01/01/23 08:16 36.8 C 78 01/01/23 07:48 36.4 C L 71 18 205/105 H 01/01/23 02:03 36.8 C 67 18 187/99 H Pulse Ox O2 Del Method O2 Flow Rate 01/01/23 13:00 Nasal Cannula 2 01/01/23 11:32 01/01/23 11:00 01/01/23 10:25 01/01/23 10:30 01/01/23 10:00 01/01/23 09:30 01/01/23 09:00 01/01/23 08:30 01/01/23 08:28 01/01/23 08:16 01/01/23 07:48 92 Nasal Cannula 2 01/01/23 02:03 94 Nasal Cannula 2 Laboratory Results Laboratory Results WBC 7.26 K/ul (4.8-10.8) 01/01/23 02:34 RBC 4.03 M/uL (4.70-6.10) L 01/01/23 02:34 Hgb 11.2 g/dl (14.0-18.0) L 01/01/23 02:34 Hct 35.7 % (42.0-52.0) L 01/01/23 02:34 MCV 88.6 fL (80.0-100.0) 01/01/23 02:34 MCH 27.8 pg (25.0-34.0) 01/01/23 02:34 MCHC 31.4 g/dL (32.0-36.0) L 01/01/23 02:34 RDW Std Deviation 61.2 fL (36.4-46.3) H 01/01/23 02:34 RDW Coeff of Diamond 19.0 % (11.5-14.5) H 01/01/23 02:34 Plt Count 271 K/uL (130-400) 01/01/23 02:34 MPV 10.0 fL (9.4-12.4) 01/01/23 02:34 Immature Gran % (Auto) 0.1 % 12/31/22 17:03 Neut % (Auto) 59.4 % 12/31/22 17:03 Lymph % (Auto) 17.8 % 12/31/22 17:03 [place] % (Auto) 13.3 % 12/31/22 17:03 Eos % (Auto) 8.1 % 12/31/22 17:03 Baso % (Auto) 1.3 % 12/31/22 17:03 Neut # (Auto) 4.19 K/uL (1.40-6.50) 12/31/22 17:03 Lymph # (Auto) 1.26 K/uL (1.2-3.4) 12/31/22 17:03 [place] # (Auto) 0.94 K/uL (0.11-0.59) H 12/31/22 17:03 Eos # (Auto) 0.57 K/uL (0-0.50) H 12/31/22 17:03 Baso # (Auto) 0.09 K/uL (0-0.2) 12/31/22 17:03 Immature Gran # (Auto) 0.01 K/uL (0.01-0.20) 12/31/22 17:03 PT 11.7 Seconds (9.0-12.0) 12/31/22 19:02 INR 1.1 (0.9-1.1) 12/31/22 19:02 APTT 32.5 Seconds (21.0-31.0) H 12/31/22 19:02 PTT Ratio 1.2 12/31/22 19:02 Sodium 141 mmol/L (136-145) 01/01/23 02:34 Potassium 4.1 mmol/L (3.5-5.1) 01/01/23 02:34 Chloride 95 mmol/L (98-107) L 01/01/23 02:34 Carbon Dioxide 32 mmol/L (21-32) 01/01/23 02:34 Anion Gap 14 (3-11) H 01/01/23 02:34 BUN 40 mg/dl (6-23) H 01/01/23 02:34 Creatinine 5.57 mg/dl (0.6-1.4) H* D 01/01/23 02:34 Est Cr Clr Drug Dosing 11.6 ml/min 01/01/23 02:34 Est GFR ( Amer) 11.2 ml/min 01/01/23 02:34 Est GFR (Non-Af Amer) 9.7 ml/min 01/01/23 02:34 BUN/Creatinine Ratio 7.2 (10-20) L 01/01/23 02:34 Glucose 72 mg/dl (70-99(Fasting)) 01/01/23 02:34 Calcium 9.6 mg/dl (8.6-10.3) 01/01/23 02:34 Phosphorus 6.1 mg/dl (2.5-4.9) H 01/01/23 02:34 Magnesium 2.0 mg/dl (1.7-2.4) 01/01/23 02:34 Total Bilirubin 0.6 mg/dl (0.2-1.0) 12/31/22 17:03 AST 17 U/L (13-39) 12/31/22 17:03 ALT 9 U/L (7-52) 12/31/22 17:03 Alkaline Phosphatase 65 U/L (34-104) 12/31/22 17:03 Troponin I High Sens 156.8 pg/ml (0-20) H* 01/01/23 09:00 Total Protein 6.3 gm/dl (6.0-8.3) 12/31/22 17:03 Albumin 3.5 gm/dl (3.4-5.0) 12/31/22 17:03 Globulin 2.8 gm/dl (2.5-4.0) 12/31/22 17:03 Albumin/Globulin Ratio 1.3 (0.9-2) 12/31/22 17:03 SARS-CoV-2, RNA, NAAT NEGATIVE (NEGATIVE) 12/31/22 17:03 Impressions Chest X-Ray 01/01/23 07:00 XR chest 1V portable CLINICAL HISTORY: SOB TECHNIQUE: Single frontal radiograph of the chest was obtained. Comparison: Comparison is made to chest radiograph 12/31/2022 FINDINGS: No lines and tubes are seen. Cardiomegaly is noted. Small right and moderate left pleural effusions noted. Bilateral lower lung predominant airspace opacities noted. IMPRESSION: Small right and moderate left pleural effusions with underlying airspace opacities which likely reflect atelectasis with or without superimposed pneumonia/aspiration. These are slightly increased in conspicuity from prior exam. ACT 112: Negative or not required by law. Electronically signed by: Jose Nicholson M.D. 01/01/2023 10:02 AM
--- NOTE | 2023-01-01 14:15 | Consultation Report ---
NEPHROLOGY CONSULTATION NOTE DATE OF SERVICE: 01/01/2023. REASON FOR CONSULTATION: Dialysis. The patient admitted with shortness of breath and respiratory gloria lure. HISTORY OF PRESENT ILLNESS: The patient is a 67-year-old Zimbabwean-speaking male with history of end-s tage renal disease, on hemodialysis Monday, Monday, Monday; congestive heart failure with reduced ejection fraction, hyperparathyroidism, hypertension, who presented to the hospital yesterday with pr ogressively worsening shortness of breath as well as chest tightness for a few days. He was hypoxic and requiring oxygen, which he still requires. He had dialysis earlier today and about 3 kilos of fl uid was removed. We also gave him IV Lasix, metolazone, nitroglycerin paste to help with the CHF sym ptoms, did not require BiPAP. He did not really make any urine with the Lasix. After dialysis, he fe els about 25-30% better. ALLERGIES: None. HOME MEDICATIONS: List was reviewed in detail and is as per the reconciliation list. PAST MEDICAL AND SURGICAL HISTORY: Reviewed and includes ESRD on chronic hemodialysis, congestive he art failure with reduced ejection fraction, pleural effusion with recent thoracentesis, hypertension, hyperlipidemia, history of kidney stone, history of peritoneal dialysis recently, BPH with history o f urinary obstruction, but currently is anuric, AV fistula surgery. SOCIAL HISTORY: Never smoked. No alcohol. Does not speak Upper Sorbian. He only speaks Zimbabwean. and lives with his family. Does not use oxygen at home. REVIEW OF SYSTEMS: As detailed in HPI; unless stated otherwise, 12 systems reviewed are negative. Po sitive for chest pain and progressive shortness of breath with orthopnea for the last few days. PHYSICAL EXAMINATION: GENERAL: A middle-aged white male who is awake, alert, oriented x3. HEENT: Mucous membrane is moist. NECK: Supple. No jugular venous distention. CHEST: Bilateral decreased breath sounds with occasional basal crackles bilaterally. CARDIOVASCULAR: S1 and S2, regular. ABDOMEN: Soft, nontender. EXTREMITIES: Show no edema. NEUROLOGIC: Awake, alert, oriented x3, normal speech. Moving all 4 extremities. LABORATORY TEST: Shows sodium 141, potassium 4.1, chloride 95, bicarbonate 32, BUN 40, creatinine 5. 5. Troponin is elevated chronically. Hemoglobin 11.2, WBC count 7, platelet count 271. Chest x-ray shows moderate left pleural effusion as well as small right pleural effusion and cardiomegaly. ASSESSMENT AND PLAN: A 67-year-old male with end-stage renal disease, on chronic hemodialysis Monday , Monday, Monday as well as congestive heart failure with reduced ejection fraction, now admitted with hypoxia and shortness of breath and respiratory failure. End-stage renal disease: The patient does have evidence of fluid overload and we did do extra dialys is today for extra fluid removal. Towards the end of dialysis, he did have some chest pain after whic h dialysis was slightly decreased, but we were able to take off about 3 kilo and he does feel signifi cantly better after that. We will do dialysis again tomorrow for 3.5 hours and we will try to take ab out 3-4 kilos off again. He may also benefit from possible thoracocentesis given moderately severe p leural effusions, especially on the left side. He does not make any urine, so diuretic therapy would not be of any help. He does need to follow the salt restriction and fluid restriction, even more ca refully. Thank you very much for the consult. Job ID: [id number]
--- NOTE | 2023-01-01 14:17 | Pulmonary Consultation ---
Date of Consultation January 01, 2023 Assessment & Plan (1) Acute hypoxemic respiratory failure: (2) Pleural effusion: (3) Heart failure with acute decompensation, type unknown: Plan He has a large left-sided effusion and a moderate right-sided effusion. I performed a thoracentesis today and removed 1.5 L of serosanguineous fluid. There remains a mild sized effusion. I had to abort the procedure due to refractory cough. He has had recurrent effusions requiring repeat thoracentesis over a period of 1 month. His effusions appear refractory to hemodialysis. Pleural fluid again sent for cytology, cultures and cell counts. Fluid appears to be an exudate. Consider outpatient thoracic surgery referral for VATS biopsy and pleurodesis. Thank you for allowing us to participate in care of the patient. We will continue to follow with you. Please call questions. History of Present Illness Reason for Consultation: Bilateral pleural effusions Attending Physician: Jeff Schaefer MD History of Present Illness 67-year-old male with a history of ESRD on hemodialysis every Monday, Monday and Monday, diastolic heart failure and hypertension who presented due to shortness of breath and chest tightness for the past week. Patient is known to me from previous hospitalization last month. I performed a left thoracentesis at that time and removed 1.1 L of fluid. Cytology with negative for malignancy. Fluid was an exudate likely due to contraction alkalosis. He underwent hemodialysis today and his shortness of breath is mildly improved. He remains on supplemental oxygen with sats in the low 90s on 2 L. He had a chest x-ray completed today which revealed a small pleural effusion on the right and a moderate to large-sized effusion on the left. Allergies Allergy/AdvReac Type Severity Reaction Status Date / Time No Known Allergies Allergy Verified 12/31/22 19:22 Home Medications Medication Instructions Recorded Confirmed Type ergocalciferol (vitamin D2) 1,250 1,250 mcg PO WK 10/28/20 12/31/22 History mcg (50,000 unit) capsule (Vitamin D2) losartan 50 mg tablet (Cozaar) 50 mg PO AMHS 10/28/20 12/31/22 History allopurinol 100 mg tablet 50 mg PO DAILY 06/12/22 12/31/22 History calcitriol 0.5 mcg capsule 1.5 mcg PO DAILY 08/19/22 12/31/22 History cinacalcet 30 mg tablet (Sensipar) 30 mg PO DAILY 08/19/22 12/31/22 History vit B,C-folic ac 800 mcg-zinc 12.5 1 tab PO DAILY 08/19/22 12/31/22 History mg-selen-D3 2,000 unit-vit E tablet (RenaPlex-D) amlodipine 5 mg tablet 5 mg PO DAILY 11/10/22 12/31/22 History patiromer calcium sorbitex 8.4 8.4 g PO QAM 11/10/22 12/31/22 History gram oral powder packet (Veltassa) megestrol 20 mg tablet 20 mg PO QAM 12/05/22 12/31/22 History aspirin 81 mg tablet,delayed 81 mg PO QAM #30 tabs 12/08/22 12/31/22 Rx release atorvastatin 40 mg tablet 40 mg PO HS #30 tabs 12/08/22 12/31/22 Rx hydralazine 50 mg tablet 50 mg PO BID #60 tabs 12/08/22 12/31/22 Rx metoprolol succinate 25 mg 25 mg PO BID #60 tabs 12/08/22 12/31/22 Rx tablet,extended release 24 hr Patient History Medical History Acute upper gastrointestinal bleeding Anemia Anemia of chronic disease AV fistula Benign prostatic hyperplasia with urinary obstruction Dialysis AV fistula infection Dialysis AV fistula malfunction ESRD (end stage renal disease) on dialysis HD patient follows w/ Dr Munson [facility] 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 Fluid overload Hyperkalemia Hypertension Kidney transplant candidate reason for colonoscopy to get on list Nephrolithiasis Peritoneal dialysis catheter in place Peritoneal dialysis status per daughter--"in place with a hole" but currently not using Pleural effusion Restless leg syndrome Symptomatic anemia Surgical History H/O inguinal hernia repair History of colonoscopy History of cystoscopy History of thoracentesis History of tooth extraction Status post creation of arteriovenous fistula left arm Family History Other No family history of adverse response to anesthesia No significant family history Social History Smoking Status: Former smoker Second Hand Exposure: No; Do You Dip or Chew Tobacco: No; Hx Alcohol Use: No Hx Substance Use: No Preferred Language: Mongolian Communication Ability: Effective Communication Ability Comment: does not speak any romansh, only Mongolian Communication Tools: Language Line Drop Worker, Facial Expression and Physical Gestures Drop Worker Required: Yes Beliefs That Will Affect Care: None marital status: Current Living Situation: Family current occupational status: employed Other Information That Helps Us Care for You: No Feels Safe at Home: Yes Safety Concerns: Feels Safe At This Time Assistive Devices: None Review of Systems Review of Systems: All systems reviewed & are unremarkable except as noted in HPI & below Physical Exam Physical Exam: Constitutional: Patient appears to be of their stated age. Patient is in no apparent distress. Patient is well-developed. Eyes: Pupils are equal round and reactive to light. Conjunctivae are normal. Anicteric sclera. Ears nose, mouth and throat: Deferred.. Neck: Trachea is midline. Visual inspection is normal. Respiratory: Diminished bilaterally. Minimal tachypnea. Cardiovascular: Regular rate and rhythm. No murmurs. No edema. Gastrointestinal: Normal bowel sounds, soft, nontender and nondistended. No hepatosplenomegaly noted. Musculoskeletal: No cyanosis. Patient is able to move all extremities Skin: No rashes, warm dry and intact. Neurologic: No obvious focal neurological deficits seen. Psychiatric: Alert and oriented x3 with a euthymic affect. Results & Data Results & Data Vital Signs (Past 12 Hours) Vital Signs Temp Pulse Pulse Pulse Resp BP BP 01/01/23 13:00 01/01/23 11:32 36.3 C L 135/84 01/01/23 11:00 63 119/83 01/01/23 10:25 69 01/01/23 10:30 58 L 151/97 H 01/01/23 10:00 55 L 139/87 01/01/23 09:30 70 179/84 H 01/01/23 09:00 65 158/97 H 01/01/23 08:30 72 173/100 H 01/01/23 08:28 78 179/89 H 01/01/23 08:16 36.8 C 78 01/01/23 07:48 36.4 C L 71 18 205/105 H Pulse Ox O2 Del Method O2 Flow Rate 01/01/23 13:00 Nasal Cannula 2 01/01/23 11:32 01/01/23 11:00 01/01/23 10:25 01/01/23 10:30 01/01/23 10:00 01/01/23 09:30 01/01/23 09:00 01/01/23 08:30 01/01/23 08:28 01/01/23 08:16 01/01/23 07:48 92 Nasal Cannula 2 PG Care Time/CCT Total # of Minutes Spent Total Time Spent with Patient: Total time spent is greater than 50% in coordination of care (as documented) at patient's floor/unit and/or counseling patient: Coding Level of Care Code 88901 INT INP/OBS CARE 3/75MIN Diagnoses Acute hypoxemic respiratory failure J96.01 Pleural effusion J90 Heart failure with acute decompensation, type unknown I50.9
[2023-01-01] MEDS ORDERED: ACETAMINOPHEN 325 MG TAB PO PRN (14:50)
--- NOTE | 2023-01-01 14:59 | Procedure Note ---
Procedure Note Date of Service January 01, 2023 Note Procedure: Diagnostic and therapeutic ultrasound-guided catheter thoracentesis Alumni Relations Officer: Dr. Mitchell Brown Indication: Pleural effusion Consent: Signed by patient and verified with timeout prior to procedure Anesthesia: 8 mL's of 1% lidocaine without epinephrine given locally Procedure: Consent was verified and timeout performed. Appropriate imaging studies were reviewed prior to the procedure. Patient was placed in a seated position and limited thoracic ultrasound was performed of the right lateral chest. See separate imaging. The site appropriate for thoracentesis was selected. The skin was prepped and draped in normal sterile fashion. Lidocaine was used for local analgesia. Fluid was aspirated via the finder needle. A small skin miah was made with the scalpel and the catheter over the needle apparatus was advanced over the rib into the pleural space. Using the syringe one-way valve system, a total of 1.5 L of serosanguineous colored fluid was removed. Procedure was terminated due to severe cough and. The catheter was removed and observed to be intact. A sterile dressing was applied. Post procedure chest x- ray was ordered. Fluid was sent for LDH, total protein, cell count, glucose, pH, cytology, AFB cultures, gram stain and culture and fungal cultures. The patient tolerated the procedure well without obvious complication. Postprocedure chest x-ray is pending. Ultrasound imaging saved for the record. Coding CPT Codes Pulmonary/Thoracic - Pulmonary and Thoracic: 68757 Thoracentesis w imaging ([id number]) [facility] Procedure Codes (Charges) Pulmonary/Thoracic Procedure 1: Pulmonary and Thoracic: 67462 Thoracentesis w imaging
--- NOTE | 2023-01-01 15:27 | XRay Report ---
XR chest 1V portable CLINICAL HISTORY: s/p left thora TECHNIQUE: Single frontal radiograph of the chest was obtained. Comparison: Comparison is made to chest radiograph 01/01/2023 FINDINGS: No lines and tubes are seen. Cardiomegaly is noted. Bilateral lower lung predominant airspace opaciti es are seen. Small bilateral pleural effusions are seen. IMPRESSION: 1. Interval decrease in size of left pleural effusion status post thoracentesis. No pneumothorax is seen. 2. Redemonstration of bilateral airspace opacities compatible with atelectasis with or without super imposed pneumonia/aspiration. ACT 112: Negative or not required by law. Electronically signed by: Jose Nicholson M.D. 01/01/2023 3:26 PM
[2023-01-01 15:31] LABS: Amylase Pleural Fluid 17 U/L
[2023-01-01 15:37] LABS: Glucose Pleural Fluid 82 mg/dl; LDH Pleural Fluid 154 U/L; Total Protein Pleural Fluid < 3.0 gm/dl
[2023-01-01 16:05] LABS: Appearance Pleural Fluid Cloudy; Color Pleural Fluid Red; RBC Pleural Fluid Auto 36000 /uL; Source Pleural Fluid Left Lung; WBC Pleural Fluid Auto 446 /uL
[2023-01-01 16:06] LABS: Lymphocytes, Fluid 20 %; Mono,Macrophage,Mesothelial 79 %; Neutrophils, Fluid 1 %
[2023-01-01] MEDS: ATORVASTATIN 40 MG TAB PO SCH (20:16)
[2023-01-01] MEDS ORDERED: cloNIDine HCL 0.1 MG TAB PO ONE (23:49)
[2023-01-02] MEDS ORDERED: EPOETIN ALFA 4,000 UNIT/ML VIAL IV SCH (07:00)
[2023-01-02] MEDS ORDERED: SODIUM CHLORIDE 0.9% 1000ML 1,000 ML IV PRN (07:00)
--- NOTE | 2023-01-02 07:49 | Pulmonology Progress Note ---
Date of Service January 02, 2023 Assessment & Plan (1) Acute hypoxemic respiratory failure: (2) Pleural effusion: (3) Heart failure with acute decompensation, type unknown: Plan Impression: 67-year-old male with end-stage renal disease and reduced ejection fraction with recurrent bilateral pleural effusions. He is status post thoracentesis with improvement in his symptoms. Recommendations: 1. Pleural effusions: I suspect these are related to the patient's end-stage renal disease and heart failure however they do meet exudative criteria only based on LDH and the LDH on serial taps appears to be decreasing. Cytology is pending. Cultures have been negative to date. Would recommend continued aggressive fluid removal with dialysis to prevent reaccumulation of the pleural effusions. 2. Hypoxemic respiratory failure: Resolved with dialysis and thoracentesis. Recommend to stop prior to discharge. 3. We will follow-up with final results of pleural fluid analysis and contact the patient should there be actionable data. If the effusions continue to reaccumulate despite aggressive fluid removal with dialysis, outpatient thoracic surgery evaluation for possible pleurodesis may be appropriate. Patient's pulmonary issues appear to have resolved at this point in time. He appears stable for potential discharge. Pulmonary will sign off. Feel free to contact us with questions or concerns Admission and Anticipated Discharge Date Admission Date: December 31, 2022 Subjective Patient seen and examined. EMR reviewed. Discussed with off going aircraft electrician. The patient is currently awake alert and conversant. He is denying any shortnes s of breath. He states he ambulated yesterday with no shortness of breath. He is not having any chest pain. He denies fevers chills night sweats or other constitutional symptoms. Review of Systems Review of Systems: All systems reviewed & are unremarkable except as noted in Subjective Physical Exam Physical Exam: General: Sitting comfortably in bed, not in acute distress, on room air Chest: Clear breath sounds bilaterally decreased at bases, no wheezes or crackles CVS: Regular rate and rhythm, normal heart sounds, + murmur Abdomen: Soft, non tender, not distended, normal bowel sounds Neuro: Awake, alert, oriented, conversing well, non focal Extremities: No cyanosis, clubbing or edema LUE AV fistula noted Results & Data Results & Data Vital Signs (Past 12 Hours) Vital Signs Temp Pulse Pulse Resp BP Pulse Ox O2 Del Method 01/02/23 03:58 37.2 C 81 20 122/83 94 Room Air 01/01/23 23:46 37.2 C 69 20 186/102 H 92 Room Air 01/01/23 23:25 68 01/01/23 20:15 Nasal Cannula 01/01/23 20:12 36.5 C 75 18 178/82 H 97 Nasal Cannula O2 Flow Rate 01/02/23 03:58 01/01/23 23:46 01/01/23 23:25 01/01/23 20:15 2 01/01/23 20:12 2 Laboratory Results 01/01/23 02:34 01/01/23 02:34 Diagnostic Findings Postprocedural chest x-ray reviewed.. Decreased size of the left effusion. No pneumothorax. Bilateral basilar airspace opacities identified PG Care Time/CCT Total # of Minutes Spent Total Time Spent with Patient: Total time spent is greater than 50% in coordination of care (as documented) at patient's floor/unit and/or counseling patient: Coding Level of Care Code 97065 SUB INP/OBS CARE 2/35MIN Diagnoses Acute hypoxemic respiratory failure J96.01 Pleural effusion J90 Heart failure with acute decompensation, type unknown I50.9
[2023-01-02] MEDS: hydrALAZINE TAB 50 MG TAB PO SCH ×2 (12:42→21:31)
[2023-01-02] MEDS: HEPARIN SOD 5,000 UNIT/0.5 ML VIAL SQ SCH ×2 (12:42→21:32)
[2023-01-02] MEDS: LOSARTAN POTASSIUM 50 MG TAB PO SCH ×2 (12:42→21:32)
[2023-01-02] MEDS: MEGESTROL ACETATE 40 MG TAB PO SCH (12:43)
[2023-01-02] MEDS: METOPROLOL SUCC 25MG EXT REL TAB PO SCH ×2 (12:43→21:32)
[2023-01-02] MEDS: CINACALCET HCL 30 MG TAB PO SCH (12:44)
[2023-01-02] MEDS: allopurinoL 100 MG TAB PO SCH (12:45)
[2023-01-02] MEDS: ASPIRIN 81 MG ECTAB PO SCH (12:45)
[2023-01-02] MEDS: amLODIPine BESYLATE 5 MG TAB PO SCH (12:45)
[2023-01-02] MEDS: CALCITRIOL 0.25 MCG CAPSULE PO SCH (12:48)
[2023-01-02] MEDS ORDERED: GLUCOSE 40% GEL 15 GM TUBE PO PRN (13:07)
[2023-01-02] MEDS ORDERED: GLUCAGON FOR INJ 1 MG VIAL SQ PRN (13:07)
[2023-01-02] MEDS ORDERED: DEXTROSE 50% 50 ML SYRINGE IV PRN (13:07)
[2023-01-02] MEDS ORDERED: CARBOHYDRATES FOR HYPOGLYCEMIA PO PRN (13:07)
[2023-01-02] MEDS ORDERED: GLUCOSE 10 TAB/TUBE PO PRN (13:07)
[2023-01-02 13:44] LABS: Basophils # (auto) 0.06 K/uL (0-0.2); Eosinophils # (auto) 0.53 K/uL (0-0.50); Eosinophils % (auto) 8.6 %; Hematocrit (blood only) 38.8 % (42.0-52.0); Hemoglobin 12.2 g/dl (14.0-18.0); Immature Granulocytes # (auto) 0.02 K/uL (0.01-0.20); Immature Granulocytes % (auto) 0.3 %; Lymphocytes % (auto) 14.6 %; Mean Corpuscular Hemoglobin 27.5 pg (25.0-34.0); Mean Corpuscular Hgb Conc 31.4 g/dL (32.0-36.0); Mean Corpuscular Volume 87.4 fL (80.0-100.0); Mean Platelet Volume 10.6 fL (9.4-12.4); Monocytes # (auto) 1.16 K/uL (0.11-0.59); Monocytes % (auto) 18.8 %; Neutrophils # (auto) 3.51 K/uL (1.40-6.50); Neutrophils % (auto) 56.7 %; Platelet Count 231 K/uL (130-400); RDW Coefficient of Variation 18.5 % (11.5-14.5); RDW Standard Deviation 59.7 fL (36.4-46.3); Red Blood Count 4.44 M/uL (4.70-6.10); White Blood Count 6.18 K/ul (4.8-10.8)
[2023-01-02 13:49] LABS: Albumin Globulin Ratio 1.2 (0.9-2); Albumin Level 3.3 gm/dl (3.4-5.0); BUN Creatinine Ratio 5.6 (10-20); Bilirubin,Total 0.9 mg/dl (0.2-1.0); Calcium 9.3 mg/dl (8.6-10.3); Creatinine Clr Calc Pharmacy 18.1 ml/min; Est GFR (African American) 19.2 ml/min; Est GFR (Non-African American) 16.6 ml/min; Globulin 2.8 gm/dl (2.5-4.0); Potassium 3.6 mmol/L (3.5-5.1); Total Protein 6.1 gm/dl (6.0-8.3)
[2023-01-02] MEDS: PATIROMER CALCIUM SORBITEX 8.4 GM PACK PO SCH (14:01)
--- NOTE | 2023-01-02 14:39 | Hospitalist Progress Note ---
Date of Service January 02, 2023 Assessment & Plan (1) Acute hypoxemic respiratory failure: (2) Fluid overload: (3) Pleural effusion: (4) Acute heart failure with reduced ejection fraction and diastolic dysfunction: (5) ESRD on hemodialysis: (6) Elevated troponin: Plan 67-year-old male with history of ESRD on hemodialysis, HFrEF presented to ED with progressively worsening shortness of breath, chest tightness over the past week CXR: 1. Moderate left and [id number] right pleural effusions. Associated airspace opacities could reflect atelectasis or consolidation. Radiographic follow-up is recommended. 2. Cardiomegaly. Pulmonary vascular congestion with possible mild pulmonary edema. Echo 12/05/22- EF 40-45% with grade 1 diastolic dysfunction, RVSP 40-50, mild hypokinetic LV Acute hypoxic respiratory failure- due to volume overload from pulm vasc congestion/bilateral pleural effusion in setting of HFrEF and ESRD on HD Status post left-sided thoracentesis with removal of 1.5 L on January 01 Fluid analysis reviewed; consistent with exudative pattern. Patient to undergo hemodialysis as scheduled Chest x-ray after hemodialysis reviewed; decrease in size of left-sided pleural effusion. B/L pleural effusion L>R- Plan as above Decompensated HFrEF- recent echo reviewed. No need for repeat echo. Plan as above ESRD on HD MWF- HD per nephro as above. LUE AV fistula noted. Hyperparathyroidism- continue sensipar HTN- continue cozaar, toprol, norvasc, HLZ with hold parameters Elevated troponin- high sens trop of 163. suspected demand ischemia due to #1 and ESRD. EKG with T wave changes similar to before. Troponin down trended. Continue to monitor for now. As needed nitro sublingual. DVT ppx- sc heparin Dispo- PCU on tele Full code PT OT ordered Dispositiondiscussed with her daughter over the phone on January 02, 2023. She reports that patient has been very weak since the last hospitalization. She wants him to go to rehab. Awaiting PT OT assessment. Time spent evaluating patient, direct bedside care, chart review, placing orders, interpretation of diagnostic studies, discussion with consultants, patient, and family members, as well as other required patient management activities is 60 minutes Please note the above document was generated using voice recognition software. It may contain grammatical, syntax or spelling errors. Any formal questions or concerns about the content, text or information contained within the body of this dictation should be directly addressed to the provider for clarification Admission and Anticipated Discharge Date Admission Date: December 31, 2022 Subjective Patient seen and examined at bedside. He reports dizziness after the dialysis. Was hypoglycemic as well. Improvement noted after D50 Review of Systems Review of Systems: All systems reviewed & are unremarkable except as noted in Subjective Physical Exam Physical Exam: General: Sitting comfortably in bed, not in acute distress, HEENT: EOMI, BRADY, MMM Chest: Clear breath sounds bilaterally decreased at bases, no wheezes or crackles CVS: Regular rate and rhythm, normal heart sounds, no murmur Abdomen: Soft, non tender, not distended, normal bowel sounds Neuro: Awake, alert, oriented, conversing well, non focal Extremities: No cyanosis, clubbing or edema. Fistula present on left arm LUE AV fistula noted Results & Data Results & Data Vital Signs (Past 12 Hours) Vital Signs Temp Pulse Pulse Resp BP BP Pulse Ox 01/02/23 14:24 60 01/02/23 12:41 36.8 C 85 16 190/58 H 95 01/02/23 12:21 36.4 C L 72 158/84 H 01/02/23 12:00 45 L 161/96 H 01/02/23 11:30 47 L 135/79 01/02/23 11:00 48 L 172/90 H 01/02/23 10:30 57 L 173/80 H 01/02/23 10:00 59 L 146/92 H 01/02/23 09:30 54 L 150/97 H 01/02/23 09:00 72 157/96 H 01/02/23 08:47 36.9 C 72 01/02/23 08:00 01/02/23 07:54 37.1 C 64 18 188/105 H 93 01/02/23 03:58 37.2 C 81 20 122/83 94 O2 Del Method 01/02/23 14:24 01/02/23 12:41 Room Air 01/02/23 12:21 01/02/23 12:00 01/02/23 11:30 01/02/23 11:00 01/02/23 10:30 01/02/23 10:00 01/02/23 09:30 01/02/23 09:00 01/02/23 08:47 01/02/23 08:00 Room Air 01/02/23 07:54 Room Air 01/02/23 03:58 Room Air Laboratory Results Laboratory Results WBC 6.18 K/ul (4.8-10.8) 01/02/23 13:08 RBC 4.44 M/uL (4.70-6.10) L 01/02/23 13:08 Hgb 12.2 g/dl (14.0-18.0) L 01/02/23 13:08 Hct 38.8 % (42.0-52.0) L 01/02/23 13:08 MCV 87.4 fL (80.0-100.0) 01/02/23 13:08 MCH 27.5 pg (25.0-34.0) 01/02/23 13:08 MCHC 31.4 g/dL (32.0-36.0) L 01/02/23 13:08 RDW Std Deviation 59.7 fL (36.4-46.3) H 01/02/23 13:08 RDW Coeff of Diamond 18.5 % (11.5-14.5) H 01/02/23 13:08 Plt Count 231 K/uL (130-400) 01/02/23 13:08 MPV 10.6 fL (9.4-12.4) 01/02/23 13:08 Immature Gran % (Auto) 0.3 % 01/02/23 13:08 Neut % (Auto) 56.7 % 01/02/23 13:08 Lymph % (Auto) 14.6 % 01/02/23 13:08 Thurston % (Auto) 18.8 % 01/02/23 13:08 Eos % (Auto) 8.6 % 01/02/23 13:08 Baso % (Auto) 1.0 % 01/02/23 13:08 Neut # (Auto) 3.51 K/uL (1.40-6.50) 01/02/23 13:08 Lymph # (Auto) 0.90 K/uL (1.2-3.4) L 01/02/23 13:08 Thurston # (Auto) 1.16 K/uL (0.11-0.59) H 01/02/23 13:08 Eos # (Auto) 0.53 K/uL (0-0.50) H 01/02/23 13:08 Baso # (Auto) 0.06 K/uL (0-0.2) 01/02/23 13:08 Immature Gran # (Auto) 0.02 K/uL (0.01-0.20) 01/02/23 13:08 PT 11.7 Seconds (9.0-12.0) 12/31/22 19:02 INR 1.1 (0.9-1.1) 12/31/22 19:02 APTT 32.5 Seconds (21.0-31.0) H 12/31/22 19:02 PTT Ratio 1.2 12/31/22 19:02 Sodium 140 mmol/L (136-145) 01/02/23 13:08 Potassium 3.6 mmol/L (3.5-5.1) 01/02/23 13:08 Chloride 101 mmol/L (98-107) 01/02/23 13:08 Carbon Dioxide 32 mmol/L (21-32) 01/02/23 13:08 Anion Gap 7 (3-11) 01/02/23 13:08 BUN 20 mg/dl (6-23) D 01/02/23 13:08 Creatinine 3.56 mg/dl (0.6-1.4) H D 01/02/23 13:08 Est Cr Clr Drug Dosing 18.1 ml/min 01/02/23 13:08 Est GFR ( Amer) 19.2 ml/min 01/02/23 13:08 Est GFR (Non-Af Amer) 16.6 ml/min 01/02/23 13:08 BUN/Creatinine Ratio 5.6 (10-20) L 01/02/23 13:08 Glucose 78 mg/dl (70-99(Fasting)) 01/02/23 13:08 POC Glucose 152 mg/dl (70-99) H 01/02/23 13:30 Calcium 9.3 mg/dl (8.6-10.3) 01/02/23 13:08 Phosphorus 6.1 mg/dl (2.5-4.9) H 01/01/23 02:34 Magnesium 2.0 mg/dl (1.7-2.4) 01/01/23 02:34 Total Bilirubin 0.9 mg/dl (0.2-1.0) 01/02/23 13:08 AST 14 U/L (13-39) 01/02/23 13:08 ALT 8 U/L (7-52) 01/02/23 13:08 Alkaline Phosphatase 58 U/L (34-104) 01/02/23 13:08 Lactate Dehydrogenase 208 U/L (86-244) 01/01/23 15:43 Troponin I High Sens 156.8 pg/ml (0-20) H* 01/01/23 09:00 Total Protein 6.1 gm/dl (6.0-8.3) 01/02/23 13:08 Albumin 3.3 gm/dl (3.4-5.0) L 01/02/23 13:08 Globulin 2.8 gm/dl (2.5-4.0) 01/02/23 13:08 Albumin/Globulin Ratio 1.2 (0.9-2) 01/02/23 13:08 Fluid Neutrophils % 1 % 01/01/23 Unknown Fluid Lymphocytes % 20 % 01/01/23 Unknown Fluid Meso/Macro/Thurston % 79 % 01/01/23 Unknown Fluid Comment 01/01/23 Unknown Pleural Fluid Source Left Lung 01/01/23 Unknown Pleural Color Red 01/01/23 Unknown Pleural Appearance Cloudy 01/01/23 Unknown Pleural pH 7.51 (7.3-7.4) H 01/01/23 Unknown Pleural WBC (Auto) 446 /uL 01/01/23 Unknown Pleural RBC (Auto) 64279 /uL 01/01/23 Unknown Pleural Total Protein < 3.0 gm/dl 01/01/23 Unknown Pleural LDH 154 U/L 01/01/23 Unknown Pleural Glucose 82 mg/dl 01/01/23 Unknown Pleural Amylase 17 U/L 01/01/23 Unknown SARS-CoV-2, RNA, NAAT NEGATIVE (NEGATIVE) 12/31/22 17:03 Impressions Chest X-Ray 01/01/23 15:02 XR chest 1V portable CLINICAL HISTORY: s/p left thora TECHNIQUE: Single frontal radiograph of the chest was obtained. Comparison: Comparison is made to chest radiograph 01/01/2023 FINDINGS: No lines and tubes are seen. Cardiomegaly is noted. Bilateral lower lung predominant airspace opacities are seen. Small bilateral pleural effusions are seen. IMPRESSION: 1. Interval decrease in size of left pleural effusion status post thoracentesis. No pneumothorax is seen. 2. Redemonstration of bilateral airspace opacities compatible with atelectasis with or without superimposed pneumonia/aspiration. ACT 112: Negative or not required by law. Electronically signed by: Jose Nicholson M.D. 01/01/2023 3:26 PM
--- NOTE | 2023-01-02 14:51 | Nephrology Progress Note ---
Date of Service January 02, 2023 Assessment & Plan Admission and Anticipated Discharge Date Admission Date: December 31, 2022 Subjective S--had dialysis earlier today as well as yesterday. About 6 kilo removed in toal + had Pleural tap and 1.5 liter removed. Breathing better. Now on RA PHYSICAL EXAMINATION: GENERAL: A middle-aged white male who is awake, alert, oriented x3. HEENT: Mucous membrane is moist. NECK: Supple. No jugular venous distention. CHEST: Bilateral decreased breath sounds with occasional basal crackles bilaterally. CARDIOVASCULAR: S1 and S2, regular. ABDOMEN: Soft, nontender. EXTREMITIES: Show no edema. NEUROLOGIC: Awake, alert, oriented x3, normal speech. Moving all 4 extremities. LABORATORY TEST: reviewed. ASSESSMENT AND PLAN: A 67-year-old male with end-stage renal disease, on chronic hemodialysis Monday, Monday, Monday as well as congestive heart failure with reduced ejection fraction, now admitted with hypoxia and shortness of breath and respiratory failure. End-stage renal disease: Fluid overload. Now much better after 2 days of dialysis + pleural tap. back to baseline and on RA. He does not make any urine, so diuretic therapy would not be of any help. He does need to follow the salt restriction and fluid restriction, even more carefully next HD will be . Results & Data Vital Signs (Past 12 Hours) Vital Signs Temp Pulse Pulse Resp BP BP Pulse Ox 01/02/23 14:24 60 01/02/23 12:41 36.8 C 85 16 190/58 H 95 01/02/23 12:21 36.4 C L 72 158/84 H 01/02/23 12:00 45 L 161/96 H 01/02/23 11:30 47 L 135/79 01/02/23 11:00 48 L 172/90 H 01/02/23 10:30 57 L 173/80 H 01/02/23 10:00 59 L 146/92 H 01/02/23 09:30 54 L 150/97 H 01/02/23 09:00 72 157/96 H 01/02/23 08:47 36.9 C 72 01/02/23 08:00 01/02/23 07:54 37.1 C 64 18 188/105 H 93 01/02/23 03:58 37.2 C 81 20 122/83 94 O2 Del Method 01/02/23 14:24 01/02/23 12:41 Room Air 01/02/23 12:21 01/02/23 12:00 01/02/23 11:30 01/02/23 11:00 01/02/23 10:30 01/02/23 10:00 01/02/23 09:30 01/02/23 09:00 01/02/23 08:47 01/02/23 08:00 Room Air 01/02/23 07:54 Room Air 01/02/23 03:58 Room Air
--- NOTE | 2023-01-02 15:56 | Electrocardiogram Report ---
Test Reason : Blood Pressure : / mmHG Vent. Rate : 064 BPM Atrial Rate : 064 BPM P-R Int : 166 ms QRS Dur : 090 ms QT Int : 472 ms P-R-T Axes : 034 -19 232 degrees QTc Int : 486 ms Sinus rhythm with Premature atrial complexes Possible Left atrial enlargement T wave abnormality, consider inferior ischemia Prolonged QT Abnormal ECG When compared with ECG of 31-DEC-2022 15:48, QT has lengthened Confirmed by Prabhu Abrams ([id number]) on 01/02/2023 3:55:58 PM Referred By: REFERRED SELF Confirmed By:Juancho Abrams
[2023-01-02] MEDS ORDERED: PATIROMER CALCIUM SORBITEX 8.4 GM PACK PO SCH (16:00)
[2023-01-02] MEDS: ATORVASTATIN 40 MG TAB PO SCH (21:32)
[2023-01-03 06:50] LABS: Basophils % (auto) 1.5 %; Eosinophils # (auto) 0.81 K/uL (0-0.50); Eosinophils % (auto) 12.3 %; Hematocrit (blood only) 34.2 % (42.0-52.0); Hemoglobin 11.1 g/dl (14.0-18.0); Immature Granulocytes # (auto) 0.01 K/uL (0.01-0.20); Immature Granulocytes % (auto) 0.2 %; Lymphocytes % (auto) 21.3 %; Mean Corpuscular Hemoglobin 27.6 pg (25.0-34.0); Mean Corpuscular Hgb Conc 32.5 g/dL (32.0-36.0); Mean Corpuscular Volume 85.1 fL (80.0-100.0); Mean Platelet Volume 11.2 fL (9.4-12.4); Monocytes # (auto) 1.16 K/uL (0.11-0.59); Monocytes % (auto) 17.7 %; Neutrophils # (auto) 3.08 K/uL (1.40-6.50); Platelet Count 239 K/uL (130-400); RDW Coefficient of Variation 18.6 % (11.5-14.5); RDW Standard Deviation 57.3 fL (36.4-46.3); Red Blood Count 4.02 M/uL (4.70-6.10); White Blood Count 6.56 K/ul (4.8-10.8)
[2023-01-03 07:11] LABS: Albumin Globulin Ratio 1.2 (0.9-2); Albumin Level 3.1 gm/dl (3.4-5.0); BUN Creatinine Ratio 6.7 (10-20); Bilirubin,Total 0.5 mg/dl (0.2-1.0); Calcium 9.2 mg/dl (8.6-10.3); Creatinine Clr Calc Pharmacy 11.6 ml/min; Est GFR (Non-African American) 10.3 ml/min; Globulin 2.6 gm/dl (2.5-4.0); Potassium 3.9 mmol/L (3.5-5.1); Total Protein 5.7 gm/dl (6.0-8.3)
[2023-01-03] MEDS: METOPROLOL SUCC 25MG EXT REL TAB PO SCH (09:36)
[2023-01-03] MEDS: MEGESTROL ACETATE 40 MG TAB PO SCH (09:37)
[2023-01-03] MEDS: ASPIRIN 81 MG ECTAB PO SCH (09:37)
[2023-01-03] MEDS: allopurinoL 100 MG TAB PO SCH (09:37)
[2023-01-03] MEDS: LOSARTAN POTASSIUM 50 MG TAB PO SCH (09:37)
[2023-01-03] MEDS: hydrALAZINE TAB 50 MG TAB PO SCH (09:37)
[2023-01-03] MEDS: amLODIPine BESYLATE 5 MG TAB PO SCH (09:37)
[2023-01-03] MEDS: CALCITRIOL 0.25 MCG CAPSULE PO SCH (09:37)
[2023-01-03] MEDS: CINACALCET HCL 30 MG TAB PO SCH (09:37)
[2023-01-03] MEDS: HEPARIN SOD 5,000 UNIT/0.5 ML VIAL SQ SCH (09:38)
[2023-01-03 11:17] LABS: HBSAG NON-REACTIVE (NON-REACTIVE); Hepatitis B Surface Ab, Quant <5 mIU/mL (> OR = 10)
--- NOTE | 2023-01-03 14:59 | Discharge Summary ---
Date of Service January 03, 2023 Admission HPI Per Admitting Provider 67-year-old Burkinan speaking male with history of ESRD on hemodialysis MWF, HFrEF, hyperparathyroidism, hypertension who presented to ED with shortness of breath for 1 week and chest tightness for 3 days. History and exam accomplished with help of [place] medical authorization specialist over the ipad. Patient had his hemodialysis yesterday and was noted to have oxygen saturation 82% and was recommended to go to the hospital however patient refused. Today he had worsening shortness of breath and presented to the hospital for the same. Patient states that he has been feeling short of breath with exertion for the past week which has been progressively getting worse. Has orthopnea and unable to sleep at night for the past 2 days. Shortness of breath improved with sitting up. Also had chest tightness radiating from left to right side of the heart for the past 3 days, intermittent. Did not require any sublingual nitroglycerin. He is chest tightness improved after he was placed on supplemental oxygen in the ambulance today. He has not had any chest tightness since. He feels better with supplemental oxygen in the emergency. He denies any fever, chills, cough, phlegm. Denies any sick contacts. He denies tobacco or alcohol use. States he is compliant to his dialysis and medications. Of note, patient states he had similar episode a month ago and had thoracentesis of left side on December 01 at [place]. ED physician spoke with nephrology who recommended Lasix, metolazone, Nitropaste with plans for dialysis later today or tomorrow. He states he does not make any urine and does not think the diuretics in the dinah rgency will help him. He has not required any BiPAP in the past. Admission Exam Per Admitting Provider General: Sitting comfortably in bed, not in acute distress, on NC 2 L HEENT: EOMI, BRADY, MMM Chest: Clear breath sounds bilaterally decreased at bases, no wheezes or crackles CVS: Regular rate and rhythm, normal heart sounds, no murmur Abdomen: Soft, non tender, not distended, normal bowel sounds Neuro: Awake, alert, oriented, conversing well, non focal Extremities: No cyanosis, clubbing or edema LUE AV fistula noted Principal Diagnosis Acute hypoxic respiratory failure- due to volume overload from pulm vasc congestion/bilateral pleural effusion in setting of HFrEF and ESRD on HD Status post left-sided thoracentesis with removal of 1.5 L on January 01 Discharge Exam General: Sitting comfortably in bed, not in acute distress, HEENT: EOMI, BRADY, MMM Chest: Clear breath sounds bilaterally no wheezes or crackles CVS: Regular rate and rhythm, normal heart sounds, no murmur Abdomen: Soft, non tender, not distended, normal bowel sounds Neuro: Awake, alert, oriented, conversing well, non focal Extremities: No cyanosis, clubbing or edema. Fistula present on left arm LUE AV fistula noted Discharge Data Allergies Allergy/AdvReac Type Severity Reaction Status Date / Time No Known Allergies Allergy Verified 12/31/22 19:22 Consultations 12/31/22 18:17 ED Decision to Admit Stat 12/31/22 19:16 Consult Pulmonology Routine 12/31/22 21:50 Consult Nephrology Routine Ordered Studies 01/01/23 08:51 US point of care ultrasound Urgent 01/01/23 14:17 US point of care ultrasound Urgent Hospital Course (1) Acute hypoxemic respiratory failure: (2) Fluid overload: (3) Pleural effusion: (4) Acute heart failure with reduced ejection fraction and diastolic dysfunction: (5) ESRD on hemodialysis: (6) Elevated troponin: Plan 67-year-old male with history of ESRD on hemodialysis, HFrEF presented to ED with progressively worsening shortness of breath, chest tightness over the past week Chest x-ray was done on admission which showed moderate left and small to moderate right-sided pleural effusion. Pulmonology was consulted; patient underwent left-sided thoracentesis with removal of 1.5 L on January 01 Nephrology was also consulted; patient received 1 extra session of hemodialysis. Repeat x-ray showed improvement in pleural effusion Patient was saturating well on room air PT OT evaluation was done; patient was recommended to go back home. Outpatient PT OT evaluation was given to case management. Patient will follow-up with his primary care doctor. He will need chest x-ray as outpatient in 2 weeks. If he is pleural effusion reaccumulate; pulmonology recommended outpatient thoracic surgery evaluation for possible biopsy and pleurodesis. Please note the above document was generated using voice recognition software. It may contain grammatical, syntax or spelling errors. Any formal questions or concerns about the content, text or information contained within the body of this dictation should be directly addressed to the provider for clarification Total Time Total Time Spent Total Time Spent (In Minutes): 45 Total Time Includes: Examination of the Patient, Discharge Planning, Medication Reconciliation, Communication With Other Providers and Other Discharge Plan Discharge Items Patient Disposition: Home - Self-Care Reason For Visit: SOB,CP Discharge Diagnosis: Acute hypoxic respiratory failure status post left-sided thoracentesis Condition on Discharge: Fair Activity: Resume your previous activity Non-emergency contact: Primary Care Provider Call non-emergency contact if: you have any medication questions and your symptoms worsen Follow-up/Referrals: Cisco Starkey MD [Primary Care Provider] - (Date & Time 01/10/2023 1:40 PM Provider Christopher Saravia MD [facility] ) Diet: Regular Addtl Attending Provider Instructions: You were admitted to the hospital with bilateral pleural effusion. You underwent thoracentesis on the left side with removal of 1.5 L in January 01. Please follow-up with your primary care doctor as scheduled. Obtain chest x-ray in 2 weeks. If there is recurrence of pleural effusion again; he will need referral to thoracic surgery for possible VATS biopsy and pleurodesis Please continue dialysis as per schedule. Pending Studies at Discharge: No Stand-Alone Forms: My [facility] [employer], Smoking Cessation Medications and DC Order Prescriptions: Continued calcitriol 0.5 mcg capsule 1.5 mcg PO DAILY Rx Instructions: 3 capsule dose cinacalcet [Sensipar] 30 mg tablet 30 mg PO DAILY RenaPlex-D 800 mcg-12.5 mg -2,000 unit Tablet 1 tab PO DAILY amlodipine 5 mg tablet 5 mg PO DAILY Veltassa 8.4 gram powder in packet 8.4 g PO QAM Rx Instructions: vigorously mix in 3 ounces of water and drink..it will not dissolve megestrol 20 mg Tablet 20 mg PO QAM atorvastatin 40 mg Tablet 40 mg PO HS Qty: 30 1RF metoprolol succinate 25 mg Tablet Extended Release 24 Hr 25 mg PO BID Qty: 60 1RF aspirin 81 mg Tablet,Delayed Release (Dr/Ec) 81 mg PO QAM Qty: 30 1RF hydralazine 50 mg tablet 50 mg PO BID Qty: 60 0RF losartan [Cozaar] 50 mg Tablet 50 mg PO [facility]HS ergocalciferol (vitamin D2) [Vitamin D2] 1,250 mcg (50,000 unit) Capsule 1,250 mcg PO WK allopurinol 100 mg tablet 50 mg PO DAILY Discharge Orders: Discharge Order (Routine); Ordered 01/03/23 Ordered By: Jeff Schaefer Admission Data Admit Date/Time: 12/31/22 18:24 Attending Provider: Jeff Schaefer Admit Provider: Robinson Sahu Primary Care Provider: Cisco Starkey Other Providers: Mitchell Brown ; Robinson Sahu ; Maicol Damon
[2023-01-04] MEDS ORDERED: EPOETIN ALFA 4,000 UNIT/ML VIAL IV ONE (07:00)
[2023-01-04] MEDS ORDERED: SODIUM CHLORIDE 0.9% 1000ML 1,000 ML IV PRN (07:00)
== END 2023-01-03 16:15 | disposition home or self-care (01) | DRG 640 ==
LOC: ED 15:37 → 2E 18:24 → SUATTDRO 18:24 → 2E 19:29

== ENCOUNTER 2023-02-01 17:42 | Inpatient (IN) ==
--- NOTE | 2023-02-01 18:55 | Emergency Department Note ---
Impression & Plan SOB (shortness of breath), ESRD (end stage renal disease) on dialysis, Pleural effusion ED Provider Note ED Provider Note NAME: DIMAS ERVIN AGE:67 SEX: Male : 1955 ARRIVES VIA: Private vehicle INFORMANT: Patient via casino accountant ED PROVIDER(s): Jennifer Alva DO CHIEF COMPLAINT: Shortness of breath HPI: This is a 67-year-old male primarily Andorran-speaking who presents emergency department due to increased trouble breathing over the last 5 days. The [employer] casino [employer] services were utilized. Patient denies any recent fevers, chills, URI symptoms. He states he has been going to dialysis including his appointment today. He denies any change in the amount of fluid they are taking off him. He denies any known sick contacts. Patient states he did previously have leg swelling however that has been improved recently. He states he does not make any urine. He states symptoms feel similar to when he needed to have fluid drained off his lungs. Patient does not wear any oxygen at home. PAST MEDICAL HISTORY:See Below PAST SURGICAL HISTORY:See Below FAMILY HISTORY:See Below SOCIAL HISTORY:See Below HOME MEDICATIONS:See Below ALLERGIES:See Below VITALS:See Below PHYSICAL EXAMINATION: GENERAL: alert, well appearing, well nourished, no distress, non-toxic EYE EXAM: normal conjunctiva, PERRL and EOM's grossly intact OROPHARYNX: no exudate, no erythema, lips, buccal mucosa, and tongue normal and mucous membranes are moist NECK: supple, no nuchal rigidity, no adenopathy, non-tender LUNGS: Clear but decreased bilaterally to auscultation. Normal chest wall mechanics, no w/r/r, mild tachypnea noted, no retractions HEART: no murmurs, S1 normal and S2 normal ABDOMEN: abdomen soft, non-tender, normo-active bowel sounds, no masses, no rebound or guarding. BACK: Back is symmetrical on inspection and there is no deformity, no midline tenderness, no CVA tenderness. SKIN: no rashes, petechiae, orbruising UPPER EXTREMITIES: upper extremities are grossly normal. FROM, nml pulses b/l. LOWER EXTREMITIES: No pitting edema. FROM, nml pulses b/l. NEURO EXAM: Normal sensorium, cranial nerves II-XII grossly intact, normal speech, no facial droop,nogross weakness of arms, no gross weakness of legs. Gross sensation intact. No ataxia. Vital Signs: reviewed and remarkable Differential Diagnosis: Pulmonary edema, URI, pleural effusion, pneumonia, PE, ACS, as well as others were considered MEDICAL DECISION MAKING: This is a 67-year-old male who presents emergency room due to increased shortness of breath. Patient with similar prior episodes. Patient has chronic kidney disease on hemodialysis and does have a history of pleural effusions. Using the iPad casino accountant in Andorran, evaluation was performed and results discussed as well as plan of care. Labs are drawn and sent, IV established, EKG and chest x-ray performed at bedside and interpreted by me and patient monitored on telemetry. Patient was not hypoxic although mildly tachypneic at bedside. He was placed on nasal cannula supplemental oxygen for comfort. We discussed additional inpatient management and possible need for recurrent drainage of his pleural effusion. Patient does already have an outpatient appointment scheduled for the end of the month with thoracic surgery at [facility]. Case discussed with the hospitalist for additional evaluation and management. Consultation(s): 2142: Discussed with Dr. Watts for admission. ER Treatment Provided: See below Diagnostics Interpreted By Me: -ECG: Normal sinus at 75, normal axis, normal intervals, inverted T waves noted in 1, 2, aVL, and V6 -Cardiac Monitoring: An order was placed for continuous cardiac monitoring. The monitor shows a rate of [] with [] rhythm. -Laboratory studies: As stated above and show below. -Imaging studies: X-ray Chest: A single view study of the chest was reviewed and was negative for cardiomegaly, focal infiltrate, or wide mediastinum. 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 Fluid overload Hyperkalemia Hypertension Kidney transplant candidate reason for colonoscopy to get on list Nephrolithiasis Peritoneal dialysis catheter in place Peritoneal dialysis status per daughter--"in place with a hole" but currently not using Pleural effusion Restless leg syndrome SOB (shortness of breath) Symptomatic anemia Surgical History H/O inguinal hernia repair History of colonoscopy History of cystoscopy History of thoracentesis History of tooth extraction Status post creation of arteriovenous fistula left arm Family History Other No family history of adverse response to anesthesia No significant family history Social History Smoking Status: Former smoker Second Hand Exposure: No; Do You Dip or Chew Tobacco: No; Tobacco Cessation Education Requested by Patient: No Hx Alcohol Use: No Hx Substance Use: No Preferred Language: Andorran Communication Ability: Effective Communication Ability Comment: does not speak any croatian, only Andorran Communication Tools: IPad and Other Director Payment Required: Yes Beliefs That Will Affect Care: None marital status: Current Living Situation: Family current occupational status: employed Other Information That Helps Us Care for You: No Feels Safe at Home: Yes Safety Concerns: Feels Safe At This Time Assistive Devices: None Allergies Allergies Allergy/AdvReac Type Severity Reaction Status Date / Time No Known Allergies Allergy Verified 02/01/23 18:40 Home Meds Home Medications Medication Instructions Recorded Confirmed losartan 50 mg tablet (Cozaar) 50 mg PO AMHS 10/28/20 02/01/23 allopurinol 100 mg tablet 50 mg PO DAILY 06/12/22 02/01/23 calcitriol 0.5 mcg capsule 1.5 mcg PO DAILY 08/19/22 02/01/23 cinacalcet 30 mg tablet (Sensipar) 30 mg PO DAILY 08/19/22 02/01/23 vit B,C-folic ac 800 mcg-zinc 12.5 1 tab PO DAILY 08/19/22 02/01/23 mg-selen-D3 2,000 unit-vit E tablet (RenaPlex-D) amlodipine 5 mg tablet 10 mg PO DAILY 11/10/22 02/02/23 patiromer calcium sorbitex 8.4 8.4 g PO QAM 11/10/22 02/01/23 gram oral powder packet (Veltassa) megestrol 20 mg tablet 20 mg PO QAM 12/05/22 02/01/23 ferric citrate 210 mg iron tablet 210 mg PO TIDM 02/01/23 02/01/23 (Auryxia) guaifenesin 600 mg tablet, 600 mg PO Q12H PRN Congestion 02/01/23 02/01/23 extended release 12 hr (Mucinex) hydralazine 50 mg tablet 50 mg PO QID 02/01/23 02/01/23 ondansetron HCl 4 mg tablet 4 mg PO Q8H PRN NAUSEA/VOMITING 02/01/23 02/01/23 sevelamer carbonate 800 mg tablet 800 mg PO TIDM 02/01/23 02/01/23 [id number] 0.1 mg EXT WK 02/02/23 02/02/23 Previous Rx's Medication Instructions Recorded metoprolol succinate 25 mg 25 mg PO BID #60 tabs 12/08/22 tablet,extended release 24 hr Results & Data (ED) Vital Signs Vital Signs - 24 hr 02/01/23 17:50 02/01/23 17:50 02/01/23 17:50 Temperature 36.8 C Temperature Source Oral Pulse Rate 85 Pulse Rhythm Regular Pulse Strength Normal Respiratory Rate 20 Respiratory Effort / Characteristics Non-Labored Spontaneous Non-Labored Respiratory Depth Normal Respiratory Pattern Regular Regular Blood Pressure 166/107 H Blood Pressure Mean 126 Blood Pressure Position Lying Pulse Oximetry 94 Oxygen Delivery Method Room Air Room Air Sepsis Recent Fever Within 48 Hours No Sepsis New/Unexplained Change in Mental Status N/A Sepsis Action Taken by Nursing No Action Required Laboratory Data 02/02/23 06:01 02/02/23 06:01 Lab Results 02/01/23 02/01/23 02/01/23 Range/Units 19:00 19:05 19:05 WBC 6.65 (4.8-10.8) K/ul RBC 4.31 L (4.70-6.10) M/uL Hgb 11.7 L (14.0-18.0) g/dl Hct 36.1 L (42.0-52.0) % MCV 83.8 (80.0-100.0) fL MCH 27.1 (25.0-34.0) pg MCHC 32.4 (32.0-36.0) g/dL RDW Std Deviation 52.0 H (36.4-46.3) fL RDW Coeff of Diamond 17.0 H (11.5-14.5) % Plt Count 283 (130-400) K/uL MPV 10.7 (9.4-12.4) fL Immature Gran % (Auto) 0.2 % Neut % (Auto) 64.2 % Lymph % (Auto) 14.7 % [place] % (Auto) 13.8 % Eos % (Auto) 6.0 % Baso % (Auto) 1.1 % Neut # (Auto) 4.27 (1.40-6.50) K/uL Lymph # (Auto) 0.98 L (1.2-3.4) K/uL [place] # (Auto) 0.92 H (0.11-0.59) K/uL Eos # (Auto) 0.40 (0-0.50) K/uL Baso # (Auto) 0.07 (0-0.2) K/uL Immature Gran # (Auto) 0.01 (0.01-0.20) K/uL PT 11.4 (9.0-12.0) Seconds INR 1.0 (0.9-1.1) Sodium (136-145) mmol/L Potassium (3.5-5.1) mmol/L Chloride (98-107) mmol/L Carbon Dioxide (21-32) mmol/L Anion Gap (3-11) BUN (6-23) mg/dl Creatinine (0.6-1.4) mg/dl Est Cr Clr Drug Dosing ml/min Est GFR ( Amer) ml/min Est GFR (Non-Af Amer) ml/min BUN/Creatinine Ratio (10-20) Glucose (70-99(Fasting)) mg/dl Calcium (8.6-10.3) mg/dl Phosphorus (2.5-4.9) mg/dl Magnesium (1.7-2.4) mg/dl Total Bilirubin (0.2-1.0) mg/dl AST (13-39) U/L ALT (7-52) U/L Alkaline Phosphatase (34-104) U/L Troponin I High Sens (0-20) pg/ml Total Protein (6.0-8.3) gm/dl Albumin (3.4-5.0) gm/dl Globulin (2.5-4.0) gm/dl Albumin/Globulin Ratio (0.9-2) Adenovirus (PCR) Not Detected (NotDetected) B. pertussis DNA (PCR) Not Detected (NotDetected) B.parapertussis DNA PCR Not Detected (NotDetected) C. pneumoniae DNA (PCR) Not Detected (NotDetected) Coronavirus OC43 (PCR) Not Detected (NotDetected) Coronavirus HKU1 (PCR) Not Detected (NotDetected) Coronavirus 229E (PCR) Not Detected (NotDetected) SARS-CoV-2 (PCR) Not Detected (NotDetected) Coronavirus NL63 (PCR) Not Detected (NotDetected) Human Metapneumovir PCR Not Detected (NotDetected) Influenza Type A (PCR) Not Detected (NotDetected) Influenza Type B (PCR) Not Detected (NotDetected) M. pneumoniae (PCR) Not Detected (NotDetected) Parainfluenza 1 (PCR) Not Detected (NotDetected) Parainfluenza 2 (PCR) Not Detected (NotDetected) Parainfluenza 3 (PCR) Not Detected (NotDetected) Parainfluenza 4 (PCR) Not Detected (NotDetected) RSV (PCR) Not Detected (NotDetected) Entero/Rhino (PCR) Not Detected (NotDetected) 02/01/23 Range/Units 19:05 WBC (4.8-10.8) K/ul RBC (4.70-6.10) M/uL Hgb (14.0-18.0) g/dl Hct (42.0-52.0) % MCV (80.0-100.0) fL MCH (25.0-34.0) pg MCHC (32.0-36.0) g/dL RDW Std Deviation (36.4-46.3) fL RDW Coeff of Diamond (11.5-14.5) % Plt Count (130-400) K/uL MPV (9.4-12.4) fL Immature Gran % (Auto) % Neut % (Auto) % Lymph % (Auto) % [place] % (Auto) % Eos % (Auto) % Baso % (Auto) % Neut # (Auto) (1.40-6.50) K/uL Lymph # (Auto) (1.2-3.4) K/uL [place] # (Auto) (0.11-0.59) K/uL Eos # (Auto) (0-0.50) K/uL Baso # (Auto) (0-0.2) K/uL Immature Gran # (Auto) (0.01-0.20) K/uL PT (9.0-12.0) Seconds INR (0.9-1.1) Sodium 137 (136-145) mmol/L Potassium 3.9 (3.5-5.1) mmol/L Chloride 94 L (98-107) mmol/L Carbon Dioxide 38 H (21-32) mmol/L Anion Gap 5 (3-11) BUN 24 H (6-23) mg/dl Creatinine 4.36 H (0.6-1.4) mg/dl Est Cr Clr Drug Dosing 14.4 ml/min Est GFR ( Amer) 15.0 ml/min Est GFR (Non-Af Amer) 13.0 ml/min BUN/Creatinine Ratio 5.5 L (10-20) Glucose 135 H (70-99(Fasting)) mg/dl Calcium 10.8 H (8.6-10.3) mg/dl Phosphorus 2.1 L (2.5-4.9) mg/dl Magnesium 1.9 (1.7-2.4) mg/dl Total Bilirubin 0.4 (0.2-1.0) mg/dl AST 15 (13-39) U/L ALT 7 (7-52) U/L Alkaline Phosphatase 59 (34-104) U/L Troponin I High Sens 176.2 H* (0-20) pg/ml Total Protein 6.2 (6.0-8.3) gm/dl Albumin 3.4 (3.4-5.0) gm/dl Globulin 2.8 (2.5-4.0) gm/dl Albumin/Globulin Ratio 1.2 (0.9-2) Adenovirus (PCR) (NotDetected) B. pertussis DNA (PCR) (NotDetected) B.parapertussis DNA PCR (NotDetected) C. pneumoniae DNA (PCR) (NotDetected) Coronavirus OC43 (PCR) (NotDetected) Coronavirus HKU1 (PCR) (NotDetected) Coronavirus 229E (PCR) (NotDetected) SARS-CoV-2 (PCR) (NotDetected) Coronavirus NL63 (PCR) (NotDetected) Human Metapneumovir PCR (NotDetected) Influenza Type A (PCR) (NotDetected) Influenza Type B (PCR) (NotDetected) M. pneumoniae (PCR) (NotDetected) Parainfluenza 1 (PCR) (NotDetected) Parainfluenza 2 (PCR) (NotDetected) Parainfluenza 3 (PCR) (NotDetected) Parainfluenza 4 (PCR) (NotDetected) RSV (PCR) (NotDetected) Entero/Rhino (PCR) (NotDetected) Administered Medications Allopurinol (Allopurinol 100 Mg Tab) 50 mg PO DAILY MYLES Stop: 03/04/23 08:59 Last Admin: 02/02/23 08:20 Dose: 50 mg Documented By: AM Amlodipine Besylate (Amlodipine Besylate 5 Mg Tab) 10 mg PO DAILY MYLES Stop: 03/04/23 09:29 Last Admin: 02/02/23 12:58 Dose: Not Given Documented By: CHARLES Cinacalcet (Cinacalcet Hcl 30 Mg Tab) 30 mg PO DAILY MYLES Stop: 03/04/23 08:59 Last Admin: 02/02/23 08:21 Dose: 30 mg Documented By: AM Clonidine HCl (Clonidine Hcl 0.1 Mg/24 Hr Transderm Sys) 1 patch TD Q7D MYLES Stop: 03/04/23 09:14 Last Admin: 02/02/23 14:52 Dose: Not Given Documented By: AM Heparin Sodium (Porcine) (Heparin Sod 5,000 Unit/0.5 Ml Vial) 5,000 units SQ Q8 MYLES Stop: 03/04/23 05:59 Last Admin: 02/02/23 21:54 Dose: 5,000 units Documented By: Admin: 02/02/23 13:04 Dose: 5,000 units Documented By: Admin: 02/02/23 05:50 Dose: 5,000 units Documented By: MUSTAPHA Hydralazine HCl (Hydralazine Tab 50 Mg Tab) 50 mg PO QID MYLES Stop: 03/04/23 08:59 Last Admin: 02/02/23 21:54 Dose: 50 mg Documented By: Admin: 02/02/23 17:31 Dose: 50 mg Documented By: Admin: 02/02/23 12:35 Dose: 50 mg Documented By: Admin: 02/02/23 11:04 Dose: 50 mg Documented By: AM Losartan Potassium (Losartan Potassium 50 Mg Tab) 50 mg PO AMHS [facility] Stop: 03/04/23 00:44 Last Admin: 02/02/23 21:54 Dose: 50 mg Documented By: Admin: 02/02/23 11:03 Dose: 50 mg Documented By: Admin: 02/02/23 01:17 Dose: 50 mg Documented By: GH Megestrol Acetate (Megestrol Acetate 40 Mg Tab) 20 mg PO QAM MYLES Stop: 03/04/23 08:59 Last Admin: 02/02/23 08:22 Dose: 20 mg Documented By: AM Metoprolol Succinate (Metoprolol Succ 25mg Ext Rel Tab) 25 mg PO BID MYLES Stop: 03/04/23 08:59 Last Admin: 02/02/23 21:54 Dose: 25 mg Documented By: Admin: 02/02/23 11:04 Dose: 25 mg Documented By: AM Miscellaneous (Order Awaiting Action: Ferric Citrate [Auryxia] 210 Mg Iron Tablet) 1 each N/A QS [facility] Stop: 03/04/23 07:59 Last Admin: 02/03/23 01:01 Dose: Not Given Documented By: Admin: 02/02/23 17:31 Dose: Not Given Documented By: Admin: 02/02/23 08:23 Dose: Not Given Documented By: AM Miscellaneous (Check Clonidine Patch Placement) 1 each N/A QS [facility] Stop: 03/04/23 15:59 Last Admin: 02/03/23 01:01 Dose: Not Given Documented By: Admin: 02/02/23 17:32 Dose: Not Given Documented By: AM Miscellaneous (Remove Clonidine Patch) 1 each N/A CQWK [facility] Stop: 03/04/23 09:14 Last Admin: 02/02/23 14:52 Dose: Not Given Documented By: AM Sevelamer HCl (Sevelamer Hcl 800 Mg Tablet) 800 mg PO TIDM [facility]LES Stop: 03/04/23 07:59 Last Admin: 02/02/23 17:31 Dose: 800 mg Documented By: Admin: 02/02/23 12:33 Dose: 800 mg Documented By: Admin: 02/02/23 08:20 Dose: 800 mg Documented By: AM Vitamin B Complex/Folic Acid (Nephrocaps) 1 cap PO DAILY MYLES Stop: 03/04/23 08:59 Last Admin: 02/02/23 08:22 Dose: 1 cap Documented By: AM Discontinued Medications Albuterol (Albut/Ipratrop 3mg/0.5mg Neb 3 Ml Vial) 3 ml NEB NOW STA; Protocol Stop: 02/01/23 23:00 Last Admin: 02/02/23 05:16 Dose: Not Given Documented By: MUSTAPHA Amlodipine Besylate (Amlodipine Besylate 5 Mg Tab) 5 mg PO DAILY [facility] Stop: 03/04/23 08:59 Last Admin: 02/02/23 10:14 Dose: Not Given Documented By: CHARLES Amlodipine Besylate (Amlodipine Besylate 5 Mg Tab) 5 mg PO NOW ONE Stop: 02/02/23 12:35 Last Admin: 02/02/23 13:03 Dose: 5 mg Documented By: CHARLES Hydralazine HCl (Hydralazine Tab 50 Mg Tab) 50 mg PO NOW STA Stop: 02/01/23 21:49 Last Admin: 02/01/23 22:42 Dose: 50 mg Documented By: STEPHANIE Hydralazine HCl (Hydralazine Hcl 20 Mg/Ml Vial) 10 mg IV NOW STA Stop: 02/02/23 00:45 Last Admin: 02/02/23 01:16 Dose: 10 mg Documented By: MUSTAPHA Cefepime HCl (Maxipime) 2,000 mg in 20 mls @ 5 mls/min IV NOW STA; Protocol Stop: 02/02/23 00:22 Last Admin: 02/02/23 01:36 Dose: 5 mls/min Documented By: MUSTAPHA Doxycycline Hyclate 100 mg/ (Dextrose) 110 mls @ 50 mls/hr IV NOW STA Stop: 02/02/23 02:30 Last Infusion: 02/02/23 03:48 Dose: 0 mls/hr Documented By: Admin: 02/02/23 01:37 Dose: 50 mls/hr Documented By: MUSTAPHA Loratadine (Loratadine 10 Mg Tab) 10 mg PO NOW ONE Stop: 02/01/23 23:05 Last Admin: 02/02/23 01:36 Dose: 10 mg Documented By: MUSTAPHA Metoprolol Succinate (Metoprolol Succ 25mg Ext Rel Tab) 25 mg PO NOW STA Stop: 02/01/23 21:50 Last Admin: 02/01/23 22:42 Dose: 25 mg Documented By: STEPHANIE Patiromer (Patiromer Calcium Sorbitex 8.4 Gm Pack) 8.4 gm PO DAILY@1200 MYLES Stop: 02/02/23 23:59 Last Admin: 02/02/23 19:37 Dose: 8.4 gm Documented By: MUSTAPHA Discharge Plan Visit Data Chief Complaint: Shortness of Breath/Dyspnea ED Provider: Jennifer Alva Discharge Problem: SOB (shortness of breath), ESRD (end stage renal disease) on dialysis, Pleural effusion Patient Disposition: Admitted As Inpatient Discharge Instructions Interventions: ED Discharge Assessment Last Done: 02/01/23 23:51
[2023-02-01 19:24] LABS: Basophils # (auto) 0.07 K/uL (0-0.2); Basophils % (auto) 1.1 %; Hematocrit (blood only) 36.1 % (42.0-52.0); Hemoglobin 11.7 g/dl (14.0-18.0); Immature Granulocytes # (auto) 0.01 K/uL (0.01-0.20); Immature Granulocytes % (auto) 0.2 %; Lymphocytes # (auto) 0.98 K/uL (1.2-3.4); Lymphocytes % (auto) 14.7 %; Mean Corpuscular Hemoglobin 27.1 pg (25.0-34.0); Mean Corpuscular Hgb Conc 32.4 g/dL (32.0-36.0); Mean Corpuscular Volume 83.8 fL (80.0-100.0); Mean Platelet Volume 10.7 fL (9.4-12.4); Monocytes # (auto) 0.92 K/uL (0.11-0.59); Monocytes % (auto) 13.8 %; Neutrophils # (auto) 4.27 K/uL (1.40-6.50); Neutrophils % (auto) 64.2 %; Platelet Count 283 K/uL (130-400); Red Blood Count 4.31 M/uL (4.70-6.10); White Blood Count 6.65 K/ul (4.8-10.8)
--- NOTE | 2023-02-01 19:31 | XRay Report ---
SINGLE VIEW CHEST CLINICAL HISTORY: Dyspnea FINDINGS: An AP, portable, upright chest radiograph is compared to study dated 01/01/2023. Correlation is made with chest CT dated 09/11/2022. The heart is enlarged. There is pulmonary vascular congestion . There are left larger than right pleural effusions with dependent consolidation. No pneumothorax is seen. The skeletal structures are osteopenic. The bony thorax is grossly intact. IMPRESSION: 1. Cardiomegaly with pulmonary vascular congestion. 2. Left larger than right pleural effusions with dependent consolidation. Radiographic follow-up to [facility] is recommended. ACT 112: Negative or not required by law. Electronically signed by: Tone Mccain M.D. 02/01/2023 7:30 PM
[2023-02-01 19:37] LABS: Albumin Globulin Ratio 1.2 (0.9-2); Albumin Level 3.4 gm/dl (3.4-5.0); BUN Creatinine Ratio 5.5 (10-20); Bilirubin,Total 0.4 mg/dl (0.2-1.0); Calcium 10.8 mg/dl (8.6-10.3); Creatinine Clr Calc Pharmacy 14.4 ml/min; Globulin 2.8 gm/dl (2.5-4.0); Magnesium 1.9 mg/dl (1.7-2.4); Potassium 3.9 mmol/L (3.5-5.1); Total Protein 6.2 gm/dl (6.0-8.3)
[2023-02-01 19:46] LABS: Prothrombin Time 11.4 Seconds (9.0-12.0)
[2023-02-01 19:52] LABS: Troponin I High Sensitivity 176.2 pg/ml (0-20)
[2023-02-01 20:23] LABS: Adenovirus PCR Not Detected (NotDetected); Bordetella parapertussis PCR Not Detected (NotDetected); Bordetella pertussis PCR Not Detected (NotDetected); Chlamydia pneumoniae PCR Not Detected (NotDetected); Coronavirus 229E PCR Not Detected (NotDetected); Coronavirus CoV-2 (COVID19)PCR Not Detected (NotDetected); Coronavirus HKU1 PCR Not Detected (NotDetected); Coronavirus NL63 PCR Not Detected (NotDetected); Coronavirus OC43PCR Not Detected (NotDetected); Human Metapneumovirus PCR Not Detected (NotDetected); Influenza A PCR Not Detected (NotDetected); Influenza B PCR Not Detected (NotDetected); Mycoplasma pneumoniae PCR Not Detected (NotDetected); Parainfluenza Virus 1 PCR Not Detected (NotDetected); Parainfluenza Virus 2 PCR Not Detected (NotDetected); Parainfluenza Virus 3 PCR Not Detected (NotDetected); Parainfluenza Virus 4 PCR Not Detected (NotDetected); Respiratory Syncytial VirusPCR Not Detected (NotDetected); Rhinovirus/Enterovirus PCR Not Detected (NotDetected)
[2023-02-01] MEDS ORDERED: hydrALAZINE TAB 50 MG TAB PO STA (21:48)
[2023-02-01] MEDS ORDERED: METOPROLOL SUCC 25MG EXT REL TAB PO STA (21:49)
[2023-02-01] MEDS ORDERED: ALBUT/IPRATROP 3MG/0.5MG NEB 3 ML VIAL NEB STA (22:59)
--- NOTE | 2023-02-01 23:00 | History & Physical Report ---
Date of Service February 01, 2023 Assessment & Plan (1) SOB (shortness of breath): Plan: Multifactorial: HCAP, no sepsis for now Cardiorenal syndrome, hx systolic heart failure (EF 40 to 45%, TTE 2022), ESRD on HD, hx p-ANCA vasculitis as per records Recurrent pleural effusions status post drainage HTN, markedly elevated at the ER, possibly contributory to pulmonary congestion, significant discrepancies noted on review of outpatient BP med list and medication reconciliation done at the ER [Alerted by [facility] pharmacist that patient has only been getting Metoprolol tartrate from his pharmacy since June 14. Metoprolol succinate recommended by [facility] rn vascular from inpatient consultation last November has not been filled. Suspect language barrier/patient's functional disability significantly impacting on patient's ability to manage chronic medical conditions on his own leading to recurrent confinements over the last year.] paroxysmal atrial flutter, patient NSR valvular heart disease (moderate AAS, mild TR/MR) prediabetes, hemoglobin A1c 5.8 2021 chronic anemia, hemoglobin at baseline PCU CS, Cefepime, Doxycycline Pulmonology consult Re: Recurrent pleural effusions (ER provider already in touch with Dr. Pickering.) Nephrology consult Re: Dialysis management Titrate home BP meds and ensure patient/family fully understand regimen on discharge. PT OT eval once medically stable DVT prophylaxis with Heparin subcu Full code Patient requesting for daughters to be updated of plan of care. Sandy De La Rosa, [phone] Shital Bee, [phone] Text document was generated using g2One voice recognition software. It may contain grammatical or spelling errors. Kindly contact undersigned for clarification of any documentation item in question. History of Present Illness Chief Complaint: Cough, worsening shortness of breath Primary Care Provider: Cisco Starkey MD History obtained from patient, tele-aquaculturist, and records. Limited history from patient secondary to language barrier. Medical history significant for systolic heart failure (EF 40 to 45%, TTE 2022), paroxysmal atrial flutter,valvular heart disease (moderate AAS, mild TR/MR), aortic root dilatation, hypertension, hyperlipidemia, ESRD on HD, P ANCA vasculitis as per records, prediabetes, chronic anemia (baseline hemoglobin 11- 12). Monthly admissions since July,. Recent [facility] confinement December 31 to 2022 for respiratory failure secondary to volume overload status post thoracenteses. Pulmonology recommended outpatient thoracic surgery evaluation for possible biopsy) if her fluid reaccumulates. Patient seen at PCP's office last week for follow-up visit. Hypoxemia noted at the office. Home O2 recommended. Patient instructed to follow-up with nephro, cardio, and pulmo services outpatient. CT surgery appointment for recurrent pleural effusion tentatively scheduled [place] 14 at [facility] 5 days ago, patient noted cough symptoms productive of green sputum. No chest pain. Patient denies aspiration. No fever, no chills. Increasing shortness of breath. Denies headache. Claims compliant with home medications and dialysis treatments. 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, patient born in [place] Allergies Allergy/AdvReac Type Severity Reaction Status Date / Time No Known Allergies Allergy Verified 02/01/23 18:40 Home Medications Medication Instructions Recorded Confirmed Type losartan 50 mg tablet (Cozaar) 50 mg PO AMHS 10/28/20 02/01/23 History allopurinol 100 mg tablet 50 mg PO DAILY 06/12/22 02/01/23 History calcitriol 0.5 mcg capsule 1.5 mcg PO DAILY 08/19/22 02/01/23 History cinacalcet 30 mg tablet (Sensipar) 30 mg PO DAILY 08/19/22 02/01/23 History vit B,C-folic ac 800 mcg-zinc 12.5 1 tab PO DAILY 08/19/22 02/01/23 History mg-selen-D3 2,000 unit-vit E tablet (RenaPlex-D) amlodipine 5 mg tablet 10 mg PO DAILY 11/10/22 02/02/23 History patiromer calcium sorbitex 8.4 8.4 g PO QAM 11/10/22 02/01/23 History gram oral powder packet (Veltassa) megestrol 20 mg tablet 20 mg PO QAM 12/05/22 02/01/23 History metoprolol succinate 25 mg 25 mg PO BID #60 tabs 12/08/22 02/01/23 Rx tablet,extended release 24 hr ferric citrate 210 mg iron tablet 210 mg PO TIDM 02/01/23 02/01/23 History (Auryxia) guaifenesin 600 mg tablet, 600 mg PO Q12H PRN Congestion 02/01/23 02/01/23 History extended release 12 hr (Mucinex) hydralazine 50 mg tablet 50 mg PO QID 02/01/23 02/01/23 History ondansetron HCl 4 mg tablet 4 mg PO Q8H PRN NAUSEA/VOMITING 02/01/23 02/01/23 History sevelamer carbonate 800 mg tablet 800 mg PO TIDM 02/01/23 02/01/23 History Jelzgizp-IFL-1 0.1 mg EXT WK 02/02/23 02/02/23 History Past Med/Surg History Medical History Acute upper gastrointestinal bleeding Anemia Anemia of chronic disease AV fistula Benign prostatic hyperplasia with urinary obstruction Dialysis AV fistula infection Dialysis AV fistula malfunction ESRD (end stage renal disease) on dialysis HD patient follows w/ Dr Munson [facility] 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 Fluid overload Hyperkalemia Hypertension Kidney transplant candidate reason for colonoscopy to get on list Nephrolithiasis Peritoneal dialysis catheter in place Peritoneal dialysis status per daughter--"in place with a hole" but currently not using Pleural effusion Restless leg syndrome SOB (shortness of breath) Symptomatic anemia Surgical History H/O inguinal hernia repair History of colonoscopy History of cystoscopy History of thoracentesis History of tooth extraction Status post creation of arteriovenous fistula left arm Family History Other No family history of adverse response to anesthesia No significant family history Social History Smoking Status: Former smoker Second Hand Exposure: No; Do You Dip or Chew Tobacco: No; Tobacco Cessation Education Requested by Patient: No Hx Alcohol Use: No Hx Substance Use: No Preferred Language: Greek Communication Ability: Effective Communication Ability Comment: does not speak any iranian, only Greek Communication Tools: Other Services Account Manager Required: Yes Beliefs That Will Affect Care: None marital status: Current Living Situation: Family current occupational status: employed Other Information That Helps Us Care for You: No Feels Safe at Home: Yes Safety Concerns: Feels Safe At This Time Assistive Devices: None Review of Systems Review of Systems: Could not be reliably obtained secondary to language barrier Physical Exam Physical Exam: GENERAL: Comfortable, no respiratory distress, chronically ill SKIN: Pallor, warm HEENT: alopecia, pale palpebral conjunctivae, no ptosis, dry buccal mucosa NECK : Supple, no tenderness CHEST : Decreased breath sounds, no tenderness HEART : RRR, no obvious murmurs ABDOMEN: Some distention, nontender EXTREMITIES : Minimal LE swelling, no LE tenderness, no other conspicuous deformities noted NEUROLOGIC : Coherent, no facial asymmetry, no other gross focality Results & Data Results & Data Vital Signs (Past 12 Hours) Vital Signs Temp Pulse Resp BP Pulse Ox O2 Del Method O2 Flow Rate 02/01/23 22:01 73 22 173/100 H 98 2 02/01/23 22:04 71 02/01/23 21:00 77 19 196/104 H 100 Nasal Cannula 2 02/01/23 20:00 90 24 182/107 H 99 Nasal Cannula 2 02/01/23 19:18 76 19 173/94 H 99 Nasal Cannula 2 02/01/23 19:00 81 19 98 Nasal Cannula 2 02/01/23 18:30 76 24 92 Nasal Cannula 2 02/01/23 18:00 71 22 94 Nasal Cannula 2 02/01/23 17:59 75 22 94 Nasal Cannula 2 02/01/23 19:10 76 02/01/23 17:50 Room Air 02/01/23 17:50 36.8 C 85 20 166/107 H 94 Room Air Laboratory Results Laboratory Results WBC 6.65 K/ul (4.8-10.8) 02/01/23 19:05 RBC 4.31 M/uL (4.70-6.10) L 02/01/23 19:05 Hgb 11.7 g/dl (14.0-18.0) L 02/01/23 19:05 Hct 36.1 % (42.0-52.0) L 02/01/23 19:05 MCV 83.8 fL (80.0-100.0) 02/01/23 19:05 MCH 27.1 pg (25.0-34.0) 02/01/23 19:05 MCHC 32.4 g/dL (32.0-36.0) 02/01/23 19:05 RDW Std Deviation 52.0 fL (36.4-46.3) H 02/01/23 19:05 RDW Coeff of Diamond 17.0 % (11.5-14.5) H 02/01/23 19:05 Plt Count 283 K/uL (130-400) 02/01/23 19:05 MPV 10.7 fL (9.4-12.4) 02/01/23 19:05 Immature Gran % (Auto) 0.2 % 02/01/23 19:05 Neut % (Auto) 64.2 % 02/01/23 19:05 Lymph % (Auto) 14.7 % 02/01/23 19:05 [place] % (Auto) 13.8 % 02/01/23 19:05 Eos % (Auto) 6.0 % 02/01/23 19:05 Baso % (Auto) 1.1 % 02/01/23 19:05 Neut # (Auto) 4.27 K/uL (1.40-6.50) 02/01/23 19:05 Lymph # (Auto) 0.98 K/uL (1.2-3.4) L 02/01/23 19:05 [place] # (Auto) 0.92 K/uL (0.11-0.59) H 02/01/23 19:05 Eos # (Auto) 0.40 K/uL (0-0.50) 02/01/23 19:05 Baso # (Auto) 0.07 K/uL (0-0.2) 02/01/23 19:05 Immature Gran # (Auto) 0.01 K/uL (0.01-0.20) 02/01/23 19:05 PT 11.4 Seconds (9.0-12.0) 02/01/23 19:05 INR 1.0 (0.9-1.1) 02/01/23 19:05 Sodium 137 mmol/L (136-145) 02/01/23 19:05 Potassium 3.9 mmol/L (3.5-5.1) 02/01/23 19:05 Chloride 94 mmol/L (98-107) L 02/01/23 19:05 Carbon Dioxide 38 mmol/L (21-32) H 02/01/23 19:05 Anion Gap 5 (3-11) 02/01/23 19:05 BUN 24 mg/dl (6-23) H 02/01/23 19:05 Creatinine 4.36 mg/dl (0.6-1.4) H 02/01/23 19:05 Est Cr Clr Drug Dosing 14.4 ml/min 02/01/23 19:05 Est GFR ( Amer) 15.0 ml/min 02/01/23 19:05 Est GFR (Non-Af Amer) 13.0 ml/min 02/01/23 19:05 BUN/Creatinine Ratio 5.5 (10-20) L 02/01/23 19:05 Glucose 135 mg/dl (70-99(Fasting)) H 02/01/23 19:05 Calcium 10.8 mg/dl (8.6-10.3) H 02/01/23 19:05 Magnesium 1.9 mg/dl (1.7-2.4) 02/01/23 19:05 Total Bilirubin 0.4 mg/dl (0.2-1.0) 02/01/23 19:05 AST 15 U/L (13-39) 02/01/23 19:05 ALT 7 U/L (7-52) 02/01/23 19:05 Alkaline Phosphatase 59 U/L (34-104) 02/01/23 19:05 Troponin I High Sens 176.2 pg/ml (0-20) H* 02/01/23 19:05 Total Protein 6.2 gm/dl (6.0-8.3) 02/01/23 19:05 Albumin 3.4 gm/dl (3.4-5.0) 02/01/23 19:05 Globulin 2.8 gm/dl (2.5-4.0) 02/01/23 19:05 Albumin/Globulin Ratio 1.2 (0.9-2) 02/01/23 19:05 Adenovirus (PCR) Not Detected (NotDetected) 02/01/23 19:00 B. pertussis DNA (PCR) Not Detected (NotDetected) 02/01/23 19:00 B.parapertussis DNA PCR Not Detected (NotDetected) 02/01/23 19:00 C. pneumoniae DNA (PCR) Not Detected (NotDetected) 02/01/23 19:00 Coronavirus OC43 (PCR) Not Detected (NotDetected) 02/01/23 19:00 Coronavirus HKU1 (PCR) Not Detected (NotDetected) 02/01/23 19:00 Coronavirus 229E (PCR) Not Detected (NotDetected) 02/01/23 19:00 SARS-CoV-2 (PCR) Not Detected (NotDetected) 02/01/23 19:00 Coronavirus NL63 (PCR) Not Detected (NotDetected) 02/01/23 19:00 Human Metapneumovir PCR Not Detected (NotDetected) 02/01/23 19:00 Influenza Type A (PCR) Not Detected (NotDetected) 02/01/23 19:00 Influenza Type B (PCR) Not Detected (NotDetected) 02/01/23 19:00 M. pneumoniae (PCR) Not Detected (NotDetected) 02/01/23 19:00 Parainfluenza 1 (PCR) Not Detected (NotDetected) 02/01/23 19:00 Parainfluenza 2 (PCR) Not Detected (NotDetected) 02/01/23 19:00 Parainfluenza 3 (PCR) Not Detected (NotDetected) 02/01/23 19:00 Parainfluenza 4 (PCR) Not Detected (NotDetected) 02/01/23 19:00 RSV (PCR) Not Detected (NotDetected) 02/01/23 19:00 Entero/Rhino (PCR) Not Detected (NotDetected) 02/01/23 19:00 Impressions Chest X-Ray 02/01/23 18:44 SINGLE VIEW CHEST CLINICAL HISTORY: Dyspnea FINDINGS: An AP, portable, upright chest radiograph is compared to study dated 01/01/2023. Correlation is made with chest CT dated 09/11/2022. The heart is enlarged. There is pulmonary vascular congestion. There are left larger than right pleural effusions with dependent consolidation. No pneumothorax is seen. The skeletal structures are osteopenic. The bony thorax is grossly intact. IMPRESSION: 1. Cardiomegaly with pulmonary vascular congestion. 2. Left larger than right pleural effusions with dependent consolidation. Radiographic follow-up to resolution is recommended. ACT 112: Negative or not required by law. Electronically signed by: Tone Mccain M.D. 02/01/2023 7:30 PM Diagnostic Findings EKG as per my interpretation : Rate 75, NSR, LAD, LSB, LVH, septal infarct, diffuse T wave abnormalities
[2023-02-01] MEDS ORDERED: LORATADINE 10 MG TAB PO ONE (23:04)
[2023-02-01] MEDS ORDERED: PROMETHAZINE HCL 6.25 MG in SODIUM CHLORIDE 0.9% 50 ML IV PRN (23:04)
[2023-02-01] MEDS ORDERED: traMADol HCL 50 MG TABLET PO PRN (23:04)
[2023-02-01 23:13] LABS: Phosphorus 2.1 mg/dl (2.5-4.9)
--- NOTE | 2023-02-01 23:24 | CT Scan Report ---
Exam(s): CT CHEST Without Contrast EXAM: CT Chest Without Intravenous Contrast CLINICAL HISTORY: Reason for exam: cough. TECHNIQUE: Axial computed tomography images of the chest without intravenous contrast. CTDI is 7.62 mGy and DLP is 261.4 mGy-cm. Automated exposure control was utilized for the study. A dose lowering technique was utilized adhering to the principles of ALARA. COMPARISON: No relevant prior studies available. FINDINGS: Lungs: There is partial collapse of the left lower lobe with underlying infection not excluded. There is compressive atelectasis of the right lower lobe. Pleural space: There is a large left pleural effusion. There is a moderate right pleural effusion. No pneumothorax. Heart: The heart is enlarged. There is dense coronary vascular calcification. No significant pericardial effusion. Bones/joints: Degenerative change of the thoracolumbar spine. No acute fracture. No dislocation. Soft tissues: Unremarkable. Vasculature: There is diffuse atherosclerotic calcification of the aorta and its major branch vessels. Lymph nodes: Unremarkable. No enlarged lymph nodes. IMPRESSION: Large left and moderate right pleural effusions. Partial collapse of the left lower lobe with underlying infection not excluded. Electronically signed by: Tae Padilla MD 02/01/23 23:24 PM
[2023-02-02] MEDS ORDERED: CEFEPIME 2,000 MG/20 ML VIAL IV STA (00:19)
[2023-02-02] MEDS ORDERED: DOXYCYCLINE HYCLATE 100 MG in DEXTROSE 5% 100 ML IV STA (00:19)
[2023-02-02] MEDS ORDERED: ACETAMINOPHEN 325 MG TAB PO PRN (00:32)
[2023-02-02] MEDS ORDERED: hydrALAZINE HCL 20 MG/ML VIAL IV STA (00:44)
[2023-02-02] MEDS ORDERED: SEVELAMER HCL 800 MG TABLET PO PRN (01:17)
[2023-02-02] MEDS: LOSARTAN POTASSIUM 50 MG TAB PO SCH ×4 (01:17→21:54)
[2023-02-02] MEDS: HEPARIN SOD 5,000 UNIT/0.5 ML VIAL SQ SCH ×3 (05:50→21:54)
[2023-02-02 07:04] LABS: Basophils # (auto) 0.06 K/uL (0-0.2); Basophils % (auto) 0.8 %; Eosinophils # (auto) 0.57 K/uL (0-0.50); Eosinophils % (auto) 7.5 %; Hematocrit (blood only) 35.1 % (42.0-52.0); Hemoglobin 11.4 g/dl (14.0-18.0); Immature Granulocytes # (auto) 0.02 K/uL (0.01-0.20); Immature Granulocytes % (auto) 0.3 %; Lymphocytes # (auto) 0.78 K/uL (1.2-3.4); Lymphocytes % (auto) 10.3 %; Mean Corpuscular Hgb Conc 32.5 g/dL (32.0-36.0); Mean Platelet Volume 10.3 fL (9.4-12.4); Monocytes # (auto) 0.87 K/uL (0.11-0.59); Monocytes % (auto) 11.5 %; Neutrophils # (auto) 5.29 K/uL (1.40-6.50); Neutrophils % (auto) 69.6 %; Platelet Count 290 K/uL (130-400); RDW Coefficient of Variation 17.2 % (11.5-14.5); RDW Standard Deviation 51.9 fL (36.4-46.3); Red Blood Count 4.23 M/uL (4.70-6.10); White Blood Count 7.59 K/ul (4.8-10.8)
[2023-02-02 07:40] LABS: Albumin Level 3.3 gm/dl (3.4-5.0); BUN Creatinine Ratio 5.9 (10-20); Calcium 11.2 mg/dl (8.6-10.3); Creatinine Clr Calc Pharmacy 10.2 ml/min; Est GFR (African American) 10.3 ml/min; Est GFR (Non-African American) 8.9 ml/min; Phosphorus 3.1 mg/dl (2.5-4.9); Potassium 4.3 mmol/L (3.5-5.1)
[2023-02-02] MEDS: SEVELAMER HCL 800 MG TABLET PO SCH ×3 (08:20→17:31)
[2023-02-02] MEDS: allopurinoL 100 MG TAB PO SCH (08:20)
[2023-02-02] MEDS: hydrALAZINE TAB 50 MG TAB PO SCH ×5 (08:20→21:54)
[2023-02-02] MEDS: amLODIPine BESYLATE 5 MG TAB PO SCH ×3 (08:21→12:58)
[2023-02-02] MEDS: CINACALCET HCL 30 MG TAB PO SCH (08:21)
[2023-02-02] MEDS: MEGESTROL ACETATE 40 MG TAB PO SCH (08:22)
[2023-02-02] MEDS: NEPHROCAPS PO SCH (08:22)
[2023-02-02] MEDS: METOPROLOL SUCC 25MG EXT REL TAB PO SCH ×3 (08:23→21:54)
[2023-02-02] MEDS ORDERED: LOSARTAN POTASSIUM 50 MG TAB PO SCH (09:00)
[2023-02-02] MEDS ORDERED: CALCITRIOL 0.25 MCG CAPSULE PO SCH (09:00)
[2023-02-02] MEDS ORDERED: cloNIDine HCL 0.1 MG/24 HR TRANSDERM SYS TD SCH (09:15)
--- NOTE | 2023-02-02 10:53 | Nephrology Consultation ---
Date of Consultation February 02, 2023 Assessment & Plan (1) ESRD (end stage renal disease) on dialysis: ESRD on hemodialysis Monday. He did have dialysis yesterday. Patient does not make any urine which means he has no residual renal function and definitely needs at the very minimum 3 times a week dialysis. Patient has almost exclusively pleural effusion which is not really amenable to removal through dialysis. However it also has pulmonary congestion which can be helped to some extent with extra dialysis. Patient did not want dialysis daughter absolutely refused to allow extra dialysis today. Next dialysis will be tomorrow as per his schedule. (2) Pleural effusion: Has bilateral pleural effusion. Consider pulmonary consult for further advice regarding thoracocentesis and/or pleurodesis as this seems to be recurring problem (3) SOB (shortness of breath): Related with bilateral pleural effusion especially in the left. Consider pulmonary consult History of Present Illness Reason for Consultation: ESRD Attending Physician: Erick Schaeffer MD History of Present Illness 67-year-old male with ESRD on chronic hemodialysis Monday now admitted with shortness of breath. He has chronic bilateral pleural effusion and has required pleurocentesis multiple times in the past most recently in December 2022. He is losing lean weight and overall declining. He does not make any urine. He had dialysis yesterday outpatient at [facility] through Dr. Rita Garvin. He is currently on room air and does not appear to be overtly in respiratory distress however his chest CT as well as chest x-ray does show pleural effusion with pulmonary congestion. Patient does not speak Vietnamese and initially I tried to communicate through sap consultant lacie but then did not work so then spoke with his daughter with his permission. Review of systems-----positive for shortness of breath occasional cough. Otherwise 12 system reviewed and is otherwise negative Allergies Allergy/AdvReac Type Severity Reaction Status Date / Time No Known Allergies Allergy Verified 02/01/23 18:40 Home Medications Medication Instructions Recorded Confirmed Type losartan 50 mg tablet (Cozaar) 50 mg PO AMHS 10/28/20 02/01/23 History allopurinol 100 mg tablet 50 mg PO DAILY 06/12/22 02/01/23 History calcitriol 0.5 mcg capsule 1.5 mcg PO DAILY 08/19/22 02/01/23 History cinacalcet 30 mg tablet (Sensipar) 30 mg PO DAILY 08/19/22 02/01/23 History vit B,C-folic ac 800 mcg-zinc 12.5 1 tab PO DAILY 08/19/22 02/01/23 History mg-selen-D3 2,000 unit-vit E tablet (RenaPlex-D) amlodipine 5 mg tablet 10 mg PO DAILY 11/10/22 02/02/23 History patiromer calcium sorbitex 8.4 8.4 g PO QAM 11/10/22 02/01/23 History gram oral powder packet (Veltassa) megestrol 20 mg tablet 20 mg PO QAM 12/05/22 02/01/23 History metoprolol succinate 25 mg 25 mg PO BID #60 tabs 12/08/22 02/01/23 Rx tablet,extended release 24 hr ferric citrate 210 mg iron tablet 210 mg PO TIDM 02/01/23 02/01/23 History (Auryxia) guaifenesin 600 mg tablet, 600 mg PO Q12H PRN Congestion 02/01/23 02/01/23 History extended release 12 hr (Mucinex) hydralazine 50 mg tablet 50 mg PO QID 02/01/23 02/01/23 History ondansetron HCl 4 mg tablet 4 mg PO Q8H PRN NAUSEA/VOMITING 02/01/23 02/01/23 History sevelamer carbonate 800 mg tablet 800 mg PO TIDM 02/01/23 02/01/23 History Avyidaau-XIP-0 0.1 mg EXT WK 02/02/23 02/02/23 History Patient History Medical History Acute upper gastrointestinal bleeding Anemia Anemia of chronic disease AV fistula Benign prostatic hyperplasia with urinary obstruction Dialysis AV fistula infection Dialysis AV fistula malfunction ESRD (end stage renal disease) on dialysis HD patient follows w/ Dr Munson [facility] 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 Fluid overload Hyperkalemia Hypertension Kidney transplant candidate reason for colonoscopy to get on list Nephrolithiasis Peritoneal dialysis catheter in place Peritoneal dialysis status per daughter--"in place with a hole" but currently not using Pleural effusion Restless leg syndrome SOB (shortness of breath) Symptomatic anemia Surgical History H/O inguinal hernia repair History of colonoscopy History of cystoscopy History of thoracentesis History of tooth extraction Status post creation of arteriovenous fistula left arm Family History Other No family history of adverse response to anesthesia No significant family history Social History Smoking Status: Former smoker Second Hand Exposure: No; Do You Dip or Chew Tobacco: No; Tobacco Cessation Education Requested by Patient: No Hx Alcohol Use: No Hx Substance Use: No Preferred Language: Argentine Communication Ability: Effective Communication Ability Comment: does not speak any macedonian, only Argentine Communication Tools: Other Candy Attendant Required: Yes Beliefs That Will Affect Care: None marital status: Current Living Situation: Family current occupational status: employed Other Information That Helps Us Care for You: No Feels Safe at Home: Yes Safety Concerns: Feels Safe At This Time Assistive Devices: Glasses Physical Exam Physical Exam: Awake and alert oriented no respiratory distress. Normal speech Neck: Neck is supple no jugular venous distention Respiratory: Bilateral decreased breath sound in the base of breath Cardiovascular: Regular rate and rhythm. Soft systolic murmur heard Gastrointestinal (Abdomen): Soft and nontender Skin: No rash noted Results & Data Vital Signs (Past 12 Hours) Vital Signs Temp Pulse Pulse Resp BP BP BP 02/02/23 10:37 36.6 C 69 16 175/87 H 02/02/23 08:17 02/02/23 08:16 36.9 C 69 20 192/90 H 02/02/23 08:00 02/02/23 03:07 36.9 C 71 20 176/97 H 02/02/23 02:33 74 182/96 H 02/02/23 01:43 72 192/94 H 02/02/23 01:22 68 217/106 H 02/02/23 00:55 02/02/23 00:53 66 02/02/23 00:50 36.8 C 68 22 220/111 H 02/01/23 23:00 66 22 166/108 H Pulse Ox Pulse Ox O2 Del Method O2 Del Method O2 Flow Rate 02/02/23 10:37 90 Room Air 02/02/23 08:17 Room Air 02/02/23 08:16 98 Room Air 02/02/23 08:00 98 Room Air 02/02/23 03:07 97 Nasal Cannula 2 02/02/23 02:33 02/02/23 01:43 02/02/23 01:22 02/02/23 00:55 Nasal Cannula 2 02/02/23 00:53 02/02/23 00:50 100 Nasal Cannula 2 02/01/23 23:00 96 Nasal Cannula 2 Laboratory Results Renal panel consistent with ESRD Diagnostic Findings Chest x-ray and CT scan of the chest reviewed and shows bilateral pleural effusion as well as pulmonary congestion which are not necessarily new but seems to have worsened slightly from the past
[2023-02-02] MEDS ORDERED: PATIROMER CALCIUM SORBITEX 8.4 GM PACK PO SCH (12:00)
--- NOTE | 2023-02-02 12:16 | Electrocardiogram Report ---
Test Reason : Blood Pressure : / mmHG Vent. Rate : 075 BPM Atrial Rate : 075 BPM P-R Int : 176 ms QRS Dur : 086 ms QT Int : 404 ms P-R-T Axes : 059 -13 196 degrees QTc Int : 451 ms Normal sinus rhythm Possible Left atrial enlargement Left ventricular hypertrophy with repolarization abnormality Abnormal ECG When compared with ECG of 01-JAN-2023 11:08, Premature atrial complexes are no longer Present Confirmed by Prabhu Abrams ([id number]) on 02/02/2023 12:16:18 PM Referred By: REFERRED SELF Confirmed By:Juancho Abrams
[2023-02-02] MEDS ORDERED: amLODIPine BESYLATE 5 MG TAB PO ONE (12:34)
--- NOTE | 2023-02-02 15:45 | XRay Report ---
XR chest 1V portable HISTORY: 67 years-old Male S/P Thoracentesis follow-up study in a patient with pleural effusions COMPARISON: Chest CT 02/01/2023 TECHNIQUE: AP view of the chest FINDINGS: Cardiac silhouette is enlarged. Left greater than right layering pleural effusions with bibasilar opa cities have not significantly changed. Pulmonary vascular congestion. No pneumothorax. Degenerative c hanges of the shoulders and spine. IMPRESSION: 1. Unchanged left greater than right pleural effusions with bibasilar consolidation. 2. Cardiomegaly with pulmonary vascular congestion. ACT 112: Negative or not required by law. The above report was generated using voice recognition software. It may contain grammatical, syntax o r spelling errors. Electronically signed by: Chip Henderson M.D. 02/02/2023 3:44 PM
--- NOTE | 2023-02-02 16:00 | Hospitalist Progress Note ---
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 He denies any increasing cough or sputum production or febrile illness. Otherwise he reports feeling at his baseline. 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 Pulmonology has evaluated him in the past, had recommended outpatient thoracic surgery evaluation, family states that they have CT surgery appointment on February 14 at [facility]. Patient presents this time with worsening breathing for 5 days FI[employer]ARMWORK[employer], does not report any cough/febrile illness FI[employer] I FARMWORKER to me on day 1 of exam. 12/05/2022 echo with EF of 40 to 45%, grade 1 diastolic dysfunction. Discussed with patient's daughter over the phone, patient and his daughter both declined aggressive diuresis needed for offloading volume. They were made aware about the need for dialysis. They wanted transfer to [facility]. -->> Did call transfer line, spoke with triage officer who spoke with CT surgery, recommendation is to follow-up as outpatient as scheduled on February 14. Discussed with nephrology, since patient declined dialysis today, plan to continue with the scheduled dialysis tomorrow. He would possibly improve with aggressive dialysis given that he has some pulmonary vascular congestion. Discussed with pulmonology, plan to order IR for thoracentesis. Pulmonology strongly recommends following up with CT surgeon. Reached out to IR, thoracentesis tomorrow, hold heparin in the morning. Given absence of fever/URI symptoms at presentation, no indication of antibiotic, bibasilar consolidation noted in the admitting imaging could be atelectasis. We will closely monitor off of antibiotic. Continue telemetry monitoring. Hypertensive urgency: Blood pressure elevated at presentation, likely noncompliance/discrepancy secondary to language barrier. We will continue home medication and closely monitor for any need for adjustment of blood pressure medications. Per outpatient chart review his blood pressure medications are amlodipine 10 mg in the morning, clonidine 0.1 mg per 24-hour patch, hydralazine 50 mg 4 times daily, losartan 50 mg twice daily, metoprolol 25 mg twice daily. except for clonidine, all the other medications appears to be prescribed in October 2022 per outpatient chart review. Will use clonidine from juan jos[facility] and closely monitor BP. Other chronic medical conditions: Continue with home medications as and when able. Paroxysmal atrial flutter, patient NSR Prediabetes, hemoglobin A1c 5.8 in 2021 Chronic anemia, hemoglobin at baseline DVT prophylaxis: Heparin subcu, to be held after tonight dose for IR thoracentesis tomorrow Full code Patient's Dtrs: Sandy De La Rosa, [phone]; Shital Arinalory, [phone] Approx 80 minutes spent in care/coordination of this patient. Admission and Anticipated Discharge Date Admission Date: February 01, 2023 Subjective Patient seen and examined at bedside as a follow-up of for concern of HCAP, recurrent pleural effusion/volume overload on the background of ESRD on hemodialysis associated with some shortness of breath prior to arrival. Patient was sitting up in bed, on room air, NAD, per RN no new acute event overnight. Spoke with the daughter over the phone, no increasing cough or febrile illness in the last week on the patient, appetite and bowel movements has been normal. Patient and her daughter both declined aggressive dialysis needed for volume overload status, declined dialysis today, discussed with nephrology, plan for his scheduled dialysis tomorrow. They also wanted transfer to [facility], communicated with [facility] transfer line, they are reviewing the case and will let me know via [place] text ---> replied back; recommendation is to f/u as OP as scheduled. They mention they have appointment with CT surgeon on February 14 at [facility]. Physical Exam Physical Exam: GENERAL: Alert and oriented x3. NAD, on RA. HEENT: No pallor, no icterus. Pupils equal, round and reactive to light. Oral mucosa moist. NECK: No JVD, no neck masses. HEART: S1 and S2 heard. Regular rate and rhythm. No murmur, no gallop. RESPIRATORY SYSTEM: Normal AP diameter. No accessory muscle use. No wheezing, no crackles. decreased breath sound L > R. ABDOMEN: Soft, bowel sounds present, nontender, no distention. CENTRAL NERVOUS SYSTEM: No facial droop. Speech is clear. Obeys simple commands. Moves extremities. EXTREMITIES: No edema, no erythema seen. Results & Data Results & Data Vital Signs (Past 12 Hours) Vital Signs Temp Pulse Pulse Resp BP BP Pulse Ox 02/02/23 12:36 176/88 H 02/02/23 11:41 64 02/02/23 11:27 36.6 C 69 16 200/94 H 92 02/02/23 10:37 36.6 C 69 16 175/87 H 175/87 H 90 02/02/23 08:17 02/02/23 08:16 36.9 C 69 20 192/90 H 98 02/02/23 08:00 Pulse Ox O2 Del Method O2 Del Method 02/02/23 12:36 02/02/23 11:41 02/02/23 11:27 Room Air 02/02/23 10:37 Room Air 02/02/23 08:17 Room Air 02/02/23 08:16 Room Air 02/02/23 08:00 98 Room Air
[2023-02-02 16:18] LABS: Albumin Level 3.5 gm/dl (3.4-5.0); Bilirubin,Total 0.4 mg/dl (0.2-1.0); Total Protein 6.2 gm/dl (6.0-8.3)
[2023-02-02] MEDS: CHECK CLONIDINE PATCH PLACEMENT SCH (17:32)
[2023-02-02] MEDS ORDERED: DOXYCYCLINE HYCLATE 100 MG CAP PO SCH (21:00)
[2023-02-03] MEDS ORDERED: CEFEPIME 1,000 MG in SYRINGE 0 ML IV SCH (01:00)
[2023-02-03] MEDS: CHECK CLONIDINE PATCH PLACEMENT SCH ×2 (01:01→10:37)
[2023-02-03] MEDS: PATIROMER CALCIUM SORBITEX 8.4 GM PACK PO SCH (05:39)
[2023-02-03 07:00] LABS: Hematocrit (blood only) 33.3 % (42.0-52.0); Mean Corpuscular Hemoglobin 27.2 pg (25.0-34.0); Mean Corpuscular Volume 82.2 fL (80.0-100.0); Mean Platelet Volume 10.2 fL (9.4-12.4); Platelet Count 273 K/uL (130-400); RDW Coefficient of Variation 17.2 % (11.5-14.5); RDW Standard Deviation 51.5 fL (36.4-46.3); Red Blood Count 4.05 M/uL (4.70-6.10); White Blood Count 7.37 K/ul (4.8-10.8)
[2023-02-03] MEDS ORDERED: EPOETIN ALFA 4,000 UNIT/ML VIAL IV ONE (07:00)
[2023-02-03] MEDS ORDERED: SODIUM CHLORIDE 0.9% 1000ML 1,000 ML IV PRN (07:00)
[2023-02-03 07:18] LABS: BUN Creatinine Ratio 6.6 (10-20); Calcium 11.4 mg/dl (8.6-10.3); Creatinine Clr Calc Pharmacy 7.7 ml/min; Est GFR (African American) 7.2 ml/min; Est GFR (Non-African American) 6.2 ml/min; Magnesium 2.1 mg/dl (1.7-2.4); Phosphorus 3.4 mg/dl (2.5-4.9); Potassium 4.6 mmol/L (3.5-5.1)
[2023-02-03] MEDS: SEVELAMER HCL 800 MG TABLET PO SCH ×3 (07:35→16:44)
[2023-02-03] MEDS: MEGESTROL ACETATE 40 MG TAB PO SCH (07:35)
[2023-02-03] MEDS: NEPHROCAPS PO SCH (07:35)
[2023-02-03] MEDS: allopurinoL 100 MG TAB PO SCH (07:35)
[2023-02-03] MEDS: CINACALCET HCL 30 MG TAB PO SCH (07:35)
--- NOTE | 2023-02-03 07:58 | Pulmonary Consultation ---
Date of Consultation February 03, 2023 Assessment & Plan (1) Acute hypoxemic respiratory failure: (2) Pleural effusion: (3) Heart failure with acute decompensation, type unknown: Plan Impression: 67-year-old male with end-stage renal disease and recurrent left- sided greater than right-sided pleural effusions. They have been tapped twice but continue to reaccumulate. I suspect this is due to inadequate volume removal with dialysis and potential medical noncompliance. The patient was offered urgent dialysis yesterday but refuses and instead wants to meet with the surgeon. Recommendations: 1. Bilateral pleural effusions: I suspect this is in the setting of the patient's diastolic dysfunction and diastolic heart failure with fluid overload and potential dietary noncompliance. Serial thoracentesis is not an effective way to manage these effusions. Would not recommend a Pleurx catheter for benign conditions. He is scheduled to meet with thoracic surgery to discuss definitive plan although I am not clear that pleurodesis is indicated for this benign etiology but will defer to them. Ultimately the patient needs more aggressive dialysis, and stricter control of intake and output. It is unlikely this is going to be achievable in the long-term based on the patient's track record. If he requires intermittent thoracentesis pending definitive evaluation, agree with plans to have radiology assist with pleural fluid removal for symptom control 2. IR is scheduled to tap his effusions. At this point time pulmonary has little else to offer. We will sign off. Feel free to contact us with questions or concerns History of Present Illness Attending Physician: Erick Schaeffer MD History of Present Illness Asked by hospitalist to evaluate this patient with recurrent pleural effusions in the setting of hemodialysis and questionable noncompliance. History is limited due to language barriers. This 67-year-old male is well-known to the pulmonary service. And he has a history of end-stage renal disease on dialysis. He was initially seen by the pulmonary service in November. Thoracentesis at that point time which demonstrated an exudative/borderline effusion. He underwent repeat thoracentesis a month later. Fluid characteristics are similar. He represented to the hospital with complaints of shortness of breath. The effusions were found to reaccumulate. He initially declined dialysis urgently. He does not make urine so diuretics are not indicated. Reportedly nephrology is working on trying to challenge him in the outpatient setting however this does not appear to be effectual. He has an appointment scheduled with surgery to consider pleurodesis. He is scheduled to undergo repeat thoracentesis with interventional radiology today The patient denies fevers chills night sweats. Allergies Allergy/AdvReac Type Severity Reaction Status Date / Time No Known Allergies Allergy Verified 02/01/23 18:40 Home Medications Medication Instructions Recorded Confirmed Type losartan 50 mg tablet (Cozaar) 50 mg PO AMHS 10/28/20 02/01/23 History allopurinol 100 mg tablet 50 mg PO DAILY 06/12/22 02/01/23 History calcitriol 0.5 mcg capsule 1.5 mcg PO DAILY 08/19/22 02/01/23 History cinacalcet 30 mg tablet (Sensipar) 30 mg PO DAILY 08/19/22 02/01/23 History vit B,C-folic ac 800 mcg-zinc 12.5 1 tab PO DAILY 08/19/22 02/01/23 History mg-selen-D3 2,000 unit-vit E tablet (RenaPlex-D) amlodipine 5 mg tablet 10 mg PO DAILY 11/10/22 02/02/23 History patiromer calcium sorbitex 8.4 8.4 g PO QAM 11/10/22 02/01/23 History gram oral powder packet (Veltassa) megestrol 20 mg tablet 20 mg PO QAM 12/05/22 02/01/23 History metoprolol succinate 25 mg 25 mg PO BID #60 tabs 12/08/22 02/01/23 Rx tablet,extended release 24 hr ferric citrate 210 mg iron tablet 210 mg PO TIDM 02/01/23 02/01/23 History (Auryxia) guaifenesin 600 mg tablet, 600 mg PO Q12H PRN Congestion 02/01/23 02/01/23 History extended release 12 hr (Mucinex) hydralazine 50 mg tablet 50 mg PO QID 02/01/23 02/01/23 History ondansetron HCl 4 mg tablet 4 mg PO Q8H PRN NAUSEA/VOMITING 02/01/23 02/01/23 History sevelamer carbonate 800 mg tablet 800 mg PO TIDM 02/01/23 02/01/23 History Uqayhcag-KEP-5 0.1 mg EXT WK 02/02/23 02/02/23 History Patient History Medical History Acute upper gastrointestinal bleeding Anemia Anemia of chronic disease AV fistula Benign prostatic hyperplasia with urinary obstruction Dialysis AV fistula infection Dialysis AV fistula malfunction ESRD (end stage renal disease) on dialysis HD patient follows trav/ [facility] 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 Fluid overload Hyperkalemia Hypertension Kidney transplant candidate reason for colonoscopy to get on list Nephrolithiasis Peritoneal dialysis catheter in place Peritoneal dialysis status per daughter--"in place with a hole" but currently not using Pleural effusion Restless leg syndrome SOB (shortness of breath) Symptomatic anemia Surgical History H/O inguinal hernia repair History of colonoscopy History of cystoscopy History of thoracentesis History of tooth extraction Status post creation of arteriovenous fistula left arm Family History Other No family history of adverse response to anesthesia No significant family history Social History Smoking Status: Former smoker Second Hand Exposure: No; Do You Dip or Chew Tobacco: No; Tobacco Cessation Education Requested by Patient: No Hx Alcohol Use: No Hx Substance Use: No Preferred Language: Chinese Communication Ability: Effective Communication Ability Comment: does not speak any armenian, only Chinese Communication Tools: IPad and Other Printing Screen Assembler Required: Yes Beliefs That Will Affect Care: None marital status: Current Living Situation: Family current occupational status: employed Other Information That Helps Us Care for You: No Feels Safe at Home: Yes Safety Concerns: Feels Safe At This Time Assistive Devices: None Review of Systems Review of Systems: Please refer to admission H&P. No additions or deletions Physical Exam Physical Exam: General: Sitting comfortably in bed, not in acute distress, on room air Chest: Clear breath sounds bilaterally decreased at bases, no wheezes or crackles CVS: Regular rate and rhythm, normal heart sounds, + murmur Abdomen: Soft, non tender, not distended, normal bowel sounds Neuro: Awake, alert, oriented, conversing well, non focal Extremities: No cyanosis, clubbing or edema LUE AV fistula noted Results & Data Results & Data Vital Signs (Past 12 Hours) Vital Signs Temp Pulse Pulse Resp BP Pulse Ox O2 Del Method 02/03/23 07:27 36.8 C 70 18 181/92 H 90 Room Air 02/03/23 03:12 36.7 C 65 18 198/90 H 99 Nasal Cannula 02/03/23 00:00 67 02/02/23 23:19 36.7 C 70 14 181/90 H 96 Room Air O2 Flow Rate 02/03/23 07:27 02/03/23 03:12 2 02/03/23 00:00 02/02/23 23:19 Laboratory Results 02/03/23 06:24 02/03/23 06:24 Diagnostic Findings Images independently reviewed. Chest x-ray demonstrated bilateral pleural effusion, left greater than right. Pulmonary vascular congestion mild pulmonary edema was noted. PG Care Time/CCT Total # of Minutes Spent Total Time Spent with Patient: Total time spent is greater than 50% in coordination of care (as documented) at patient's floor/unit and/or counseling patient: Coding Level of Care Code 49361 INT INP/OBS CARE 2/55MIN Diagnoses Acute hypoxemic respiratory failure J96.01 Pleural effusion J90 Heart failure with acute decompensation, type unknown I50.9
--- NOTE | 2023-02-03 10:49 | Dialysis Progress Note ---
Date of Service February 03, 2023 Assessment & Plan Admission and Anticipated Discharge Date Admission Date: February 01, 2023 Subjective Assessment & Plan (1) ESRD (end stage renal disease) on dialysis: ESRD on hemodialysis Monday.Patient does not make any urine which means he has no residual renal function and definitely needs at the very minimum 3 times a week dialysis. Patient has almost exclusively pleural effusion which is not really amenable to removal through dialysis. However he also has pulmonary congestion which can be helped to some extent with extra dialysis. Patient did not want extra dialysis yesterday. His daughter absolutely refused to allow extra dialysis.She is very unhappy with extra dialysis and feels we are taking too much fluid off with dialysis. Taking about 1700 ml UF today with Dialysis. getting Pleural tap later. (2) Pleural effusion: Has bilateral pleural effusion. getting thoracocentesis today and also seeing thoracic surgeon for pleurodesis. (3) SOB (shortness of breath): Related with bilateral pleural effusion especially in the left. s--seen during dialysis. Feels somewhat SOB. Supposed to have Pleural tap by IR later today. AVF fine. BP fine for now. Physical Exam Physical Exam: Awake and alert oriented no respiratory distress. Normal speech Neck: Neck is supple no jugular venous distention Respiratory: Bilateral decreased breath sound in the base of breath Cardiovascular: Regular rate and rhythm. Soft systolic murmur heard Gastrointestinal (Abdomen): Soft and nontender Skin: No rash noted Results & Data Vital Signs (Past 12 Hours) Vital Signs Temp Pulse Pulse Resp BP BP Pulse Ox 02/03/23 10:00 67 116/59 L 02/03/23 09:30 68 118/76 02/03/23 09:00 74 121/77 02/03/23 08:30 67 126/72 02/03/23 08:03 67 162/83 H 02/03/23 07:55 36.6 C 02/03/23 07:27 36.8 C 70 18 181/92 H 90 02/03/23 03:12 36.7 C 65 18 198/90 H 99 02/03/23 00:00 67 02/02/23 23:19 36.7 C 70 14 181/90 H 96 O2 Del Method O2 Flow Rate 02/03/23 10:00 02/03/23 09:30 02/03/23 09:00 02/03/23 08:30 02/03/23 08:03 02/03/23 07:55 02/03/23 07:27 Room Air 02/03/23 03:12 Nasal Cannula 2 02/03/23 00:00 02/02/23 23:19 Room Air
[2023-02-03] MEDS: hydrALAZINE TAB 50 MG TAB PO SCH ×4 (12:34→19:57)
[2023-02-03] MEDS: amLODIPine BESYLATE 5 MG TAB PO SCH (12:34)
[2023-02-03] MEDS: LOSARTAN POTASSIUM 50 MG TAB PO SCH ×2 (12:35→19:56)
[2023-02-03] MEDS: METOPROLOL SUCC 25MG EXT REL TAB PO SCH ×2 (12:35→19:56)
--- NOTE | 2023-02-03 16:35 | Hospitalist Progress Note ---
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 He denies any increasing cough or sputum production or febrile illness. Otherwise he reports feeling at his baseline. 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 Pulmonology has evaluated him in the past, had recommended outpatient thoracic surgery evaluation, family states that they have CT surgery appointment on February 14 at [facility]. 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 12/05/2022 echo with EF of 40 to 45%, grade 1 diastolic dysfunction. Discussed with patient's daughter over the phone 02/02 and 02/03, patient and his daughter both declined aggressive diuresis needed for offloading volume. They are aware about the need for extended/aggressive dialysis. They wanted transfer to [facility]. -->> Did call transfer line 02/02, spoke with triage officer who spoke with CT surgery, recommendation is to follow-up as outpatient as scheduled on February 14. Discussed with nephrology, since patient declined aggressive dialysis, plan to continue with the scheduled dialysis tomorrow. His pleural effusion will not be much affected by dialysis alone but would benefit his mild pulm vascular congestion. Discussed with pulmonology 02/02 and 02/03, plan to wait IR for thoracentesis. Pulmonology strongly recommends following up with CT surgeon. Also recommends setting up w/ IR for periodic thoracentesis until definitive eval by CT surgeon. If resp decompensation, will need to reach out to Pulm again over the weekend. Pt does have subjective SOB, pulm aware. Reached out to IR again, thoracentesis 1030 am on Monday. Will need communicate to nephro for moving dialysis later in the day on Monday. Given absence of fever/URI symptoms at presentation, no indication of antibiotic, bibasilar consolidation noted in the admitting imaging could be atelectasis. We will closely monitor off of antibiotic. Continue telemetry monitoring. Fluid restriction. Hypertensive urgency: Blood pressure elevated at presentation, likely noncompliance/discrepancy secondary to language barrier. We will continue home medication and closely monitor for any need for adjustment of blood pressure medications. Per outpatient chart review his blood pressure medications are amlodipine 10 mg in the morning, clonidine 0.1 mg per 24-hour patch, hydralazine 50 mg 4 times daily, losartan 50 mg twice daily, metoprolol 25 mg twice daily. except for clonidine, all the other medications appears to be prescribed in October 2022 per outpatient chart review. Will use clonidine from juan [facility] and closely monitor BP. Clonidine was held today. BP fluctuating. Other chronic medical conditions: Continue with home medications as and when able. Paroxysmal atrial flutter, patient NSR Prediabetes, hemoglobin A1c 5.8 in 2021 Chronic anemia, hemoglobin at baseline DVT prophylaxis: Heparin subcu, to be held after tonight dose for IR thoracentesis tomorrow Full code Patient's Dtrs: Sandy De La Rosa, [phone]; Shital Cristal, [phone] Approx 75 minutes spent in care/coordination of this patient. Admission and Anticipated Discharge Date Admission Date: February 01, 2023 Subjective Patient seen and examined at bedside as a follow-up of for concern of HCAP, recurrent pleural effusion/volume overload on the background of ESRD on hemodialysis associated with some shortness of breath prior to arrival. Patient was lying in bed, on room air, NAD, per RN no new acute event overnight. Pt denies any increase in cough/changes in appetite or any pain, reports some subjective sob. Spoke with the daughter (Sandy) over the phone in length. Patient and her daughter both continues to decline aggressive dialysis needed for volume overload status, undergoing scheduled dialysis today. Of note, Reached out to [facility] transfer line for possible transfer 02/02 --> rec is to f/u as OP w/ CT surgeon at [facility] as scheduled on February 14. D/w IR today, thoracentesis cancelled due to pt getting heparin iv during dialysis. He is put on [facility] for dialysis for 1030 on Monday, will request Nephro if dialysis can be pushed a day prior or little later on Monday. D/w Pulm today, requested for thoracentesis over the weekend as IR is not available. Recommendation is for IR drainage unless resp desaturation happens. Also recommends setting up w/ IR for periodic thoracentesis upon discharge until definitive eval by CT surgeon. Physical Exam Physical Exam: GENERAL: Alert and oriented x3. NAD, on RA. HEENT: No pallor, no icterus. Pupils equal, round and reactive to light. Oral mucosa moist. NECK: No JVD, no neck masses. HEART: S1 and S2 heard. Regular rate and rhythm. No murmur, no gallop. RESPIRATORY SYSTEM: Normal AP diameter. No accessory muscle use. No wheezing, no crackles. decreased breath sound L > R. ABDOMEN: Soft, bowel sounds present, nontender, no distention. CENTRAL NERVOUS SYSTEM: No facial droop. Speech is clear. Obeys simple commands. Moves extremities. EXTREMITIES: No edema, no erythema seen. Results & Data Results & Data Vital Signs (Past 12 Hours) Vital Signs Temp Pulse Pulse Pulse Resp BP BP 02/03/23 15:59 36.9 C 70 18 175/93 H 02/03/23 13:23 57 L 02/03/23 12:32 02/03/23 12:31 36.6 C 65 16 176/85 H 02/03/23 12:06 36.7 C 61 149/84 H 02/03/23 12:00 61 134/81 02/03/23 11:30 71 144/98 H 02/03/23 11:00 64 152/79 H 02/03/23 10:30 64 123/71 02/03/23 10:00 67 116/59 L 02/03/23 09:30 68 118/76 02/03/23 09:00 74 121/77 02/03/23 08:30 67 126/72 02/03/23 08:03 67 162/83 H 02/03/23 07:55 36.6 C 02/03/23 07:27 36.8 C 70 18 181/92 H Pulse Ox Pulse Ox O2 Del Method O2 Del Method 02/03/23 15:59 95 Room Air 02/03/23 13:23 02/03/23 12:32 96 Room Air 02/03/23 12:31 96 Room Air 02/03/23 12:06 02/03/23 12:00 02/03/23 11:30 02/03/23 11:00 02/03/23 10:30 02/03/23 10:00 02/03/23 09:30 02/03/23 09:00 02/03/23 08:30 02/03/23 08:03 02/03/23 07:55 02/03/23 07:27 90 Room Air
[2023-02-04] MEDS ORDERED: cloNIDine HCL 0.1 MG/24 HR TRANSDERM SYS TD SCH
[2023-02-04] MEDS ORDERED: carvediloL 3.125 MG TAB PO SCH (03:35)
--- NOTE | 2023-02-04 03:35 | Communication Note ---
Date of Service: February 04, 2023 Made aware by RN of uncontrolled blood pressure. SBP 170-190s for shift. Heart rate 60s Patient asymptomatic as per RN. AP Uncontrolled hypertension Change Lopressor to Coreg Will relay to AM provider.
[2023-02-04] MEDS ORDERED: Nursing to Pharmacy Communication SCH (04:30)
[2023-02-04] MEDS: PATIROMER CALCIUM SORBITEX 8.4 GM PACK PO SCH (05:41)
[2023-02-04 07:23] LABS: BUN Creatinine Ratio 5.4 (10-20); Calcium 10.5 mg/dl (8.6-10.3); Est GFR (African American) 11.2 ml/min; Est GFR (Non-African American) 9.7 ml/min; Potassium 3.9 mmol/L (3.5-5.1)
[2023-02-04] MEDS: CHECK CLONIDINE PATCH PLACEMENT SCH ×2 (08:29→17:33)
[2023-02-04] MEDS: allopurinoL 100 MG TAB PO SCH (08:30)
[2023-02-04] MEDS: amLODIPine BESYLATE 5 MG TAB PO SCH (08:30)
[2023-02-04] MEDS: carvediloL 3.125 MG TAB PO SCH ×2 (08:30→21:02)
[2023-02-04] MEDS: SEVELAMER HCL 800 MG TABLET PO SCH ×3 (08:31→17:31)
[2023-02-04] MEDS: MEGESTROL ACETATE 40 MG TAB PO SCH (08:31)
[2023-02-04] MEDS: LOSARTAN POTASSIUM 50 MG TAB PO SCH ×2 (08:33→21:02)
[2023-02-04] MEDS: CINACALCET HCL 30 MG TAB PO SCH (08:33)
[2023-02-04] MEDS: hydrALAZINE TAB 50 MG TAB PO SCH ×4 (08:34→21:02)
[2023-02-04] MEDS: NEPHROCAPS PO SCH (08:34)
--- NOTE | 2023-02-04 12:24 | Pulmonology Progress Note ---
Date of Service February 04, 2023 Assessment & Plan (1) Acute hypoxemic respiratory failure: (2) Pleural effusion: (3) Heart failure with acute decompensation, type unknown: Plan Impression: 67-year-old male with end-stage renal disease and recurrent left- sided greater than right-sided pleural effusions. They have been tapped twice but continue to reaccumulate. I suspect this is due to inadequate volume removal with dialysis and potential medical noncompliance. The patient was offered urgent dialysis yesterday but refuses and instead wants to meet with the surgeon. Recommendations: 1. Bilateral pleural effusions: Came by to evaluate the patient for thoracentesis today. Again he is in dialysis. Thoracentesis cannot be accomplished today. He is already scheduled with interventional radiology on Monday. He were to develop rapidly progressive symptoms, could consider thoracentesis over the weekend but otherwise we will plan on having him follow- up with IR on Monday. Serial outpatient thoracentesis with IR can be arranged until the patient can have definitive evaluation with thoracic surgery. Please call if additional questions Admission and Anticipated Discharge Date Admission Date: February 01, 2023 Subjective My to evaluate patient for potential thoracentesis today at the request of the hospitalist. Unfortunately the patient is up in dialysis and again is received heparin bolus for his dialysis. Thoracentesis cannot be accomplished today. It is apparently already been scheduled with interventional radiology on Monday Review of Systems Review of Systems: Deferred as patient not in the room Physical Exam Physical Exam: Deferred, patient in the room Results & Data Results & Data Vital Signs (Past 12 Hours) Vital Signs Temp Pulse Pulse Pulse Resp BP BP 02/04/23 12:00 73 129/87 02/04/23 11:30 67 146/100 H 02/04/23 07:00 66 02/04/23 10:49 68 162/90 H 02/04/23 11:00 69 168/87 H 02/04/23 10:40 36.5 C 72 02/04/23 06:59 36.7 C 66 18 187/86 H 02/04/23 03:00 37.0 C 73 20 193/91 H Pulse Ox O2 Del Method O2 Flow Rate 02/04/23 12:00 02/04/23 11:30 02/04/23 07:00 02/04/23 10:49 02/04/23 11:00 02/04/23 10:40 02/04/23 06:59 96 Nasal Cannula 3 02/04/23 03:00 90 Room Air PG Care Time/CCT Total # of Minutes Spent Total Time Spent with Patient: Total time spent is greater than 50% in coordination of care (as documented) at patient's floor/unit and/or counseling patient: Coding Level of Care Code 83639 SUB INP/OBS CARE 1/25MIN Diagnoses Acute hypoxemic respiratory failure J96.01 Pleural effusion J90 Heart failure with acute decompensation, type unknown I50.9
--- NOTE | 2023-02-04 17:20 | Dialysis Progress Note ---
Date of Service February 04, 2023 Assessment & Plan (1) ESRD (end stage renal disease) on dialysis: Plan: ESRD on hemodialysis Monday. He did have dialysis yesterday. Patient does not make any urine which means he has no residual renal function and definitely needs at the very minimum 3 times a week dialysis. Patient has almost exclusively pleural effusion which is not really amenable to removal through dialysis. However it also has pulmonary congestion which can be helped to some extent with extra dialysis. Patient did not want dialysis daughter absolutely refused to allow extra dialysison 02/03. >had HD today extra treatment > got 1.9L UF today (2) Pleural effusion: Plan: Has bilateral pleural effusion and pumonary vasc congestion on XR . f/u pulm recs regarding thoracentesis and/or pleurodesis as this seems to be recurring problem (3) SOB (shortness of breath): Plan: Related with bilateral pleural effusion especially in the left. Consider pulmonary consult Admission and Anticipated Discharge Date Admission Date: February 01, 2023 Subjective breathing still a challenge; reluctantly agreed to dialysis today > rationale for this explained again to pt and to his daughter. no sob at rest currently; +pruritis; no chest pain Review of Systems Review of Systems: All systems reviewed & are unremarkable except as noted in Subjective Physical Exam Constitutional: well developed and well nourished Eyes: EOM intact bilaterally ENMT: Ears: no external ear abnormality Nose: no external nose abnormality Mouth: + dry oral mucous membranes Neck: no nuchal rigidity Respiratory: normal respiratory effort Auscultation: + diminished lung sounds Cardiovascular: Rate/Rhythm: regular rate and regular rhythm Extremities: + AV fistula; no edema Gastrointestinal (Abdomen): Inspection/Auscultation: normal bowel sounds Percussion/Palpation: abdomen soft; abdomen nontender Musculoskeletal: Extremities: strength 5/5 throughout Skin: no rashes, warm and dry Neurologic: sim, fluent speech, no tremor Psychiatric: Orientation: alert and oriented x 3 Results & Data Vital Signs (Past 12 Hours) Vital Signs Temp Pulse Pulse Pulse Resp BP BP 02/04/23 16:00 02/04/23 15:00 70 02/04/23 15:17 36.9 C 76 18 148/83 H 02/04/23 13:42 36.5 C 71 133/77 02/04/23 13:00 61 142/75 H 02/04/23 12:45 65 132/72 02/04/23 12:41 62 78/60 L 02/04/23 12:30 73 129/74 02/04/23 12:00 73 129/87 02/04/23 11:30 67 146/100 H 02/04/23 07:00 66 02/04/23 10:49 68 162/90 H 02/04/23 11:00 69 168/87 H 02/04/23 10:40 36.5 C 72 02/04/23 06:59 36.7 C 66 18 187/86 H Pulse Ox Pulse Ox O2 Del Method O2 Del Method O2 Flow Rate 02/04/23 16:00 96 Room Air 02/04/23 15:00 02/04/23 15:17 96 Nasal Cannula 3 02/04/23 13:42 02/04/23 13:00 02/04/23 12:45 02/04/23 12:41 02/04/23 12:30 02/04/23 12:00 02/04/23 11:30 02/04/23 07:00 02/04/23 10:49 02/04/23 11:00 02/04/23 10:40 02/04/23 06:59 96 Nasal Cannula 3 Laboratory Results 02/03/23 06:24 02/04/23 06:13
--- NOTE | 2023-02-04 17:36 | Hospitalist Progress Note ---
Date of Service February 04, 2023 Assessment & Plan (1) Pleural effusion: Plan 67-year-old male with PMH of HFrEF [EF 40 to 45%, TTE 2022], paroxysmal a flutter, aortic root dilatation, hypertension, HLD, ESRD on HD, P ANCA vasculitis, prediabetes, chronic anemia [baseline hemoglobin 11-12] and lately recurrent pleural effusion presented to the ED 02/01 with complaint of increasing shortness of breath for 5 days [employer]. He denies any increasing cough or sputum production or febrile illness. Otherwise he reports feeling at his baseline. He is being managed for the following: Recurrent pleural effusion Shortness of breath [employer] Volume overload status likely secondary to advanced renal failure ESRD on hemodialysis Patient with recurrent pleural effusion, almost monthly since July 2022 leading to shortness of breath and respiratory failure, requiring multiple thoracentesis in the past. Pulmonology has evaluated him in the past, had recommended outpatient thoracic surgery evaluation, family states that they have CT surgery appointment on February 14 at [facility]. Patient presents this time with worsening breathing for 5 days [employer], does not report any cough/febrile illness [employer] IN[employer] to me on day 1 of exam. 12/05/2022 echo with EF of 40 to 45%, grade 1 diastolic dysfunction. Discussed with patient's daughter over the phone 02/02 and 02/03, patient and his daughter both declined aggressive diuresis needed for offloading volume. They are aware about the need for extended/aggressive dialysis. They wanted transfer to [facility]. -->> Did call transfer line 02/02, spoke with triage officer who spoke with CT surgery, recommendation is to follow-up as outpatient as scheduled on February 14. Discussed with nephrology, since patient declined aggressive dialysis, plan to continue with the scheduled dialysis and extra dialysis whenever agreeable. His pleural effusion will not be much affected by dialysis alone but would benefit his mild pulm vascular congestion. Discussed with pulmonology 02/02 and 02/03, plan to wait IR for thoracentesis. Pulmonology strongly recommends following up with CT surgeon. Also recommends setting up w/ IR for periodic thoracentesis until definitive eval by CT surgeon. If resp decompensation, will need to reach out to Pulm again over the weekend. Reached out to IR again on 02/03, thoracentesis 1030 am on Monday. Will request nephro for moving dialysis later in the day on Monday. Given absence of fever/URI symptoms at presentation, no indication of antibiotic, bibasilar consolidation noted in the admitting imaging could be atelectasis. We will closely monitor off of antibiotic. Continue telemetry monitoring. Fluid restriction. Hypertensive urgency: Blood pressure elevated at presentation, likely noncompliance/discrepancy secondary to language barrier. We will continue home medication and closely monitor for any need for adjustment of blood pressure medications. Per outpatient chart review his blood pressure medications are amlodipine 10 mg in the morning, clonidine 0.1 mg per 24-hour patch, hydralazine 50 mg 4 times daily, losartan 50 mg twice daily, metoprolol 25 mg twice daily. except for clonidine, all the other medications appears to be prescribed in October 2022 per outpatient chart review. Will use clonidine 02/04; monitor bp closely, getting better. Other chronic medical conditions: Continue with home medications as and when able. Paroxysmal atrial flutter, patient NSR Prediabetes, hemoglobin A1c 5.8 in 2021 Chronic anemia, hemoglobin at baseline DVT prophylaxis: Heparin subcu, to be held after tonight dose for IR thoracentesis tomorrow Full code Patient's Dtrs: Sandy De La Rosa, [id number]; Shital Bee, [id number] Admission and Anticipated Discharge Date Admission Date: February 01, 2023 Subjective Patient seen and examined at bedside as a follow-up of for concern of HCAP, recurrent pleural effusion/volume overload on the background of ESRD on hemodialysis associated with some shortness of breath prior to arrival. Patient was lying in bed, on room air, NAD, per RN no new acute event overnight. Pt denies any increase in cough/changes in appetite or any pain, reports some subjective sob. Spoke with the daughter (Sandy) over the phone again today/answered all her questions; about 8 minutes. Of note, Reached out to [facility] transfer line for possible transfer 02/02 --> rec is to f/u as OP w/ CT surgeon at [facility] as scheduled on February 14. D/w IR 02/03, thoracentesis cancelled due to pt getting heparin iv during dialysis. He is put on [facility] for dialysis for 1030 on Monday, will request Nephro if dialysis can be pushed a day prior or later on Monday. Physical Exam Physical Exam: GENERAL: Alert and oriented x3. NAD, on RA. HEENT: No pallor, no icterus. Pupils equal, round and reactive to light. Oral mucosa moist. NECK: No JVD, no neck masses. HEART: S1 and S2 heard. Regular rate and rhythm. No murmur, no gallop. RESPIRATORY SYSTEM: Normal AP diameter. No accessory muscle use. No wheezing, no crackles. decreased breath sound L > R. ABDOMEN: Soft, bowel sounds present, nontender, no distention. CENTRAL NERVOUS SYSTEM: No facial droop. Speech is clear. Obeys simple commands. Moves extremities. EXTREMITIES: No edema, no erythema seen. Results & Data Results & Data Vital Signs (Past 12 Hours) Vital Signs Temp Pulse Pulse Pulse Resp BP BP 02/04/23 16:00 02/04/23 15:00 70 02/04/23 15:17 36.9 C 76 18 148/83 H 02/04/23 13:42 36.5 C 71 133/77 02/04/23 13:00 61 142/75 H 02/04/23 12:45 65 132/72 02/04/23 12:41 62 78/60 L 02/04/23 12:30 73 129/74 02/04/23 12:00 73 129/87 02/04/23 11:30 67 146/100 H 02/04/23 07:00 66 02/04/23 10:49 68 162/90 H 02/04/23 11:00 69 168/87 H 02/04/23 10:40 36.5 C 72 02/04/23 06:59 36.7 C 66 18 187/86 H Pulse Ox Pulse Ox O2 Del Method O2 Del Method O2 Flow Rate 02/04/23 16:00 96 Room Air 02/04/23 15:00 02/04/23 15:17 96 Nasal Cannula 3 02/04/23 13:42 02/04/23 13:00 02/04/23 12:45 02/04/23 12:41 02/04/23 12:30 02/04/23 12:00 02/04/23 11:30 02/04/23 07:00 02/04/23 10:49 02/04/23 11:00 02/04/23 10:40 02/04/23 06:59 96 Nasal Cannula 3
[2023-02-05] MEDS: carvediloL 6.25 MG TAB PO SCH ×2 (05:44→20:28)
[2023-02-05] MEDS: PATIROMER CALCIUM SORBITEX 8.4 GM PACK PO SCH (05:51)
[2023-02-05 06:08] LABS: Hematocrit (blood only) 34.3 % (42.0-52.0); Hemoglobin 11.2 g/dl (14.0-18.0); Mean Corpuscular Hemoglobin 26.8 pg (25.0-34.0); Mean Corpuscular Hgb Conc 32.7 g/dL (32.0-36.0); Mean Corpuscular Volume 82.1 fL (80.0-100.0); Mean Platelet Volume 10.4 fL (9.4-12.4); Platelet Count 254 K/uL (130-400); RDW Coefficient of Variation 17.3 % (11.5-14.5); RDW Standard Deviation 51.2 fL (36.4-46.3); Red Blood Count 4.18 M/uL (4.70-6.10); White Blood Count 7.12 K/ul (4.8-10.8)
[2023-02-05] MEDS: NEPHROCAPS PO SCH (09:03)
[2023-02-05] MEDS: SEVELAMER HCL 800 MG TABLET PO SCH ×3 (09:03→16:49)
[2023-02-05] MEDS: MEGESTROL ACETATE 40 MG TAB PO SCH (09:03)
[2023-02-05] MEDS: amLODIPine BESYLATE 5 MG TAB PO SCH (09:04)
[2023-02-05] MEDS: allopurinoL 100 MG TAB PO SCH (09:05)
[2023-02-05] MEDS: hydrALAZINE TAB 50 MG TAB PO SCH ×4 (09:05→20:28)
[2023-02-05] MEDS: LOSARTAN POTASSIUM 50 MG TAB PO SCH ×2 (09:06→20:28)
[2023-02-05] MEDS: CINACALCET HCL 30 MG TAB PO SCH (09:06)
[2023-02-05] MEDS: CHECK CLONIDINE PATCH PLACEMENT SCH ×2 (09:08)
--- NOTE | 2023-02-05 11:48 | Nephrology Progress Note ---
Date of Service February 05, 2023 Assessment & Plan (1) ESRD (end stage renal disease) on dialysis: Plan: ESRD on hemodialysis Monday. He did have dialysis yesterday as well. Patient does not make any urine which means he has no residual renal function and definitely needs at the very minimum 3 times a week dialysis. Patient has almost exclusively pleural effusion which is not really amenable to removal through dialysis. However also w/ pulmonary congestion which can be helped to some extent with extra dialysis. Patient did not want dialysis daughter absolutely refused to allow extra dialysis this admission. > on 02/03 1.8L UF; on 02/04 1.9L UF >plan next HD 02/06 as IP or OP -select labs ordered for inflammation >>I spent about 25 minutes reviewing respiratory, renal status w/ pt and his daughter (2) Pleural effusion: Plan: Has bilateral pleural effusion and pumonary vasc congestion on XR . Recurrent pleural effusions attributed to inadequate fluid removal at HD and nonadherence to fluid limits. >for thoracentesis w/ IR on 02/06; pulm recommends serial thoracenteses prn >has cardiothoracic appt to discuss pleurodesis Dr Ayers 02/14 [facility] (3) SOB (shortness of breath): Plan: improving; back to RA. Related with bilateral pleural effusion especially in the left. >ordered CXR 2 view today to reassess status > reviewed as above Admission and Anticipated Discharge Date Admission Date: February 01, 2023 Subjective tells me he's breathing better, itchiness improved > wonders if OP med causing itch. wants complement, CRP, PTH levels checked Review of Systems Review of Systems: All systems reviewed & are unremarkable except as noted in Subjective Physical Exam Constitutional: well developed and well nourished Eyes: EOM intact bilaterally ENMT: Ears: no external ear abnormality Nose: no external nose abnormality Mouth: + dry oral mucous membranes Neck: no nuchal rigidity Respiratory: normal respiratory effort Auscultation: + diminished lung sounds Cardiovascular: Rate/Rhythm: regular rate and regular rhythm Extremities: + AV fistula; no edema Gastrointestinal (Abdomen): Inspection/Auscultation: normal bowel sounds Percussion/Palpation: abdomen soft; abdomen nontender Musculoskeletal: Extremities: strength 5/5 throughout Skin: no rashes, warm and dry Psychiatric: Orientation: alert and oriented x 3 Results & Data Vital Signs (Past 12 Hours) Vital Signs Temp Pulse Pulse Resp BP Pulse Ox Pulse Ox 02/05/23 10:58 36.6 C 76 18 171/85 H 93 02/05/23 07:00 74 02/05/23 10:03 02/05/23 08:00 98 02/05/23 06:53 36.8 C 71 18 171/85 H 96 02/05/23 00:00 75 02/05/23 06:27 36.6 C 74 20 182/86 H 96 02/05/23 03:00 37.0 C 77 16 174/88 H 97 02/05/23 00:00 96 O2 Del Method O2 Del Method O2 Flow Rate O2 Flow Rate 02/05/23 10:58 Room Air 02/05/23 07:00 02/05/23 10:03 Room Air 02/05/23 08:00 Room Air 02/05/23 06:53 Nasal Cannula 3 02/05/23 00:00 02/05/23 06:27 Nasal Cannula 02/05/23 03:00 Nasal Cannula 2 02/05/23 00:00 Nasal Cannula 2 Laboratory Results 02/05/23 05:49 02/04/23 06:13 Diagnostic Findings 2V CXR images personally reviewed by me > less vascular congestion, smaller effusions
--- NOTE | 2023-02-05 12:37 | XRay Report ---
XR chest 2V PA/lateral CLINICAL HISTORY: f/u effusions, vasc congestion TECHNIQUE: 2 views of the chest were obtained. Comparison: Comparison is made to chest radiograph 02/02/2023 FINDINGS: No lines and tubes are seen. Cardiomegaly is noted. Moderate left and small right pleural effusions are seen with underlying atelectasis. IMPRESSION: Moderate left and small right pleural effusions are seen, these are similar in size to prior exam. Pr eviously noted vascular congestion is less evident on today's exam. ACT 112: Negative or not required by law. Electronically signed by: Jose Nicholson M.D. 02/05/2023 12:35 PM
--- NOTE | 2023-02-05 16:51 | Hospitalist Progress Note ---
Date of Service February 05, 2023 Assessment & Plan (1) Pleural effusion: Plan 67-year-old male with PMH of HFrEF [EF 40 to 45%, TTE 2022], paroxysmal a flutter, aortic root dilatation, hypertension, HLD, ESRD on HD, P ANCA vasculitis, prediabetes, chronic anemia [baseline hemoglobin 11-12] and lately recurrent pleural effusion presented to the ED 02/01 with complaint of increasing shortness of breath for 5 days [employer]. He denies any increasing cough or sputum production or febrile illness. Otherwise he reports feeling at his baseline. He is being managed for the following: Recurrent pleural effusion Shortness of breath [employer] Volume overload status likely secondary to advanced renal failure ESRD on hemodialysis Patient with recurrent pleural effusion, almost monthly since July 2022 leading to shortness of breath and respiratory failure, requiring multiple thoracentesis in the past. Pulmonology has evaluated him in the past, had recommended outpatient thoracic surgery evaluation, family states that they have CT surgery appointment on February 14 at [place]. Patient presents this time with worsening breathing for 5 days [employer] PIP[employer] SU[employer], does not report any cough/febrile illness FI[employer] PIPEL[employer] SUPER[employer]OR to me on day 1 of exam. 12/05/2022 echo with EF of 40 to 45%, grade 1 diastolic dysfunction. Discussed with patient's daughter over the phone 02/02 and 02/03, patient and his daughter both declined aggressive diuresis needed for offloading volume. They are aware about the need for extended/aggressive dialysis. They wanted transfer to [facility]. -->> Did call transfer line 02/02, spoke with triage officer who spoke with CT surgery, recommendation is to follow-up as outpatient as scheduled on February 14. Discussed with nephrology, since patient declined aggressive dialysis, plan to continue with the scheduled dialysis and extra dialysis whenever agreeable. His pleural effusion will not be much affected by dialysis alone but would benefit his mild pulm vascular congestion. Discussed with pulmonology 02/02 and 02/03, plan to wait IR for thoracentesis. Pulmonology strongly recommends following up with CT surgeon. Also recommends setting up w/ IR for periodic thoracentesis until definitive eval by CT surgeon. If resp decompensation, will need to reach out to Pulm again over the weekend. Reached out to IR again on 02/03, thoracentesis 1030 am on Monday. Requested nephro for moving dialysis later in the day on Monday. Given absence of fever/URI symptoms at presentation, no indication of antibiotic, bibasilar consolidation noted in the admitting imaging could be atelectasis. We will closely monitor off of antibiotic. Continue telemetry monitoring. Fluid restriction. Repeat CXR w/ improving congestion, pleural effusion has stayed similar. Hypertensive urgency: Blood pressure elevated at presentation, likely noncompliance/discrepancy secondary to language barrier. We will continue home medication and closely monitor for any need for adjustment of blood pressure medications. Per outpatient chart review his blood pressure medications are amlodipine 10 mg in the morning, clonidine 0.1 mg per 24-hour patch, hydralazine 50 mg 4 times daily, losartan 50 mg twice daily, metoprolol 25 mg twice daily. except for clonidine, all the other medications appears to be prescribed in October 2022 per outpatient chart review. Will use clonidine 02/04; monitor bp closely, getting better. Metoprolol switched to coreg. Other chronic medical conditions: Continue with home medications as and when able. Paroxysmal atrial flutter, patient NSR Prediabetes, hemoglobin A1c 5.8 in 2021 Chronic anemia, hemoglobin at baseline DVT prophylaxis: ambulation, scd Full code Patient's Dtrs: aSndy De La Rosa, [id number]; Shital Bee, [id number] Admission and Anticipated Discharge Date Admission Date: February 01, 2023 Subjective Patient seen and examined at bedside as a follow-up of for concern of HCAP, recurrent pleural effusion/volume overload on the background of ESRD on hemodialysis associated with some shortness of breath prior to arrival. Patient was lying in bed, on room air, NAD, per RN no new acute event overnight. Pt denies any increase in cough/changes in appetite or any pain, reports some subjective sob. He is eating ok and moving bowels ok. Of note, Reached out to [facility] transfer line for possible transfer 02/02 --> rec is to f/u as OP w/ CT surgeon at [facility] as scheduled on February 14. D/w IR 02/03, thoracentesis cancelled due to pt getting heparin iv during dialysis. He is put on [facility] for dialysis for 1030 on Monday, requested Nephro if dialysis can be pushed later on Monday. Physical Exam Physical Exam: GENERAL: Alert and oriented x3. NAD, on RA. HEENT: No pallor, no icterus. Pupils equal, round and reactive to light. Oral mucosa moist. NECK: No JVD, no neck masses. HEART: S1 and S2 heard. Regular rate and rhythm. No murmur, no gallop. RESPIRATORY SYSTEM: Normal AP diameter. No accessory muscle use. No wheezing, no crackles. decreased breath sound L > R. ABDOMEN: Soft, bowel sounds present, nontender, no distention. CENTRAL NERVOUS SYSTEM: No facial droop. Speech is clear. Obeys simple commands. Moves extremities. EXTREMITIES: No edema, no erythema seen. Results & Data Results & Data Vital Signs (Past 12 Hours) Vital Signs Temp Pulse Pulse Resp BP Pulse Ox Pulse Ox 02/05/23 15:46 36.5 C 76 19 164/79 H 94 02/05/23 15:09 73 02/05/23 10:58 36.6 C 76 18 171/85 H 93 02/05/23 07:00 74 02/05/23 10:03 02/05/23 08:00 98 02/05/23 06:53 36.8 C 71 18 171/85 H 96 02/05/23 06:27 36.6 C 74 20 182/86 H 96 O2 Del Method O2 Del Method O2 Flow Rate 02/05/23 15:46 Room Air 02/05/23 15:09 02/05/23 10:58 Room Air 02/05/23 07:00 02/05/23 10:03 Room Air 02/05/23 08:00 Room Air 02/05/23 06:53 Nasal Cannula 3 02/05/23 06:27 Nasal Cannula
[2023-02-05] MEDS ORDERED: cloNIDine HCL 0.1 MG TAB PO ONE (23:19)
[2023-02-06] MEDS: PATIROMER CALCIUM SORBITEX 8.4 GM PACK PO SCH (05:39)
[2023-02-06 06:33] LABS: BUN Creatinine Ratio 6.8 (10-20); C Reactive Protein 1.63 mg/dl (0-0.5); Calcium 11.2 mg/dl (8.6-10.3); Creatinine Clr Calc Pharmacy 8.3 ml/min; Est GFR (African American) 8.2 ml/min; Est GFR (Non-African American) 7.1 ml/min; Phosphorus 3.7 mg/dl (2.5-4.9)
--- NOTE | 2023-02-06 08:15 | Nephrology Progress Note ---
Date of Service February 06, 2023 Assessment & Plan (1) ESRD (end stage renal disease) on dialysis: Plan: ESRD on hemodialysis Monday. He did have dialysis yesterday as well. Patient does not make any urine which means he has no residual renal function and definitely needs at the very minimum 3 times a week dialysis. Patient has almost exclusively pleural effusion which is not really amenable to removal through dialysis. However also w/ pulmonary congestion which can be helped to some extent with extra dialysis. Patient did not want dialysis daughter absolutely refused to allow extra dialysis this admission. > on 02/03 1.8L UF; on 02/04 1.9L UF >plan next HD 02/06 as IP after thoracentesis -select labs ordered for inflammation > did explain to pt/family I expect these to be elevated and difficult to interpret, of questionable clinical utility; ordering to maintain good relations w/ family as these labs will not hurt pt -continue nephrocaps, veltassa, sevelamer (2) Pleural effusion: Plan: Has bilateral pleural effusion and pumonary vasc congestion on XR . Recurrent pleural effusions attributed to inadequate fluid removal at HD and nonadherence to fluid limits. >for thoracentesis w/ IR on 02/06; pulm recommends serial thoracenteses prn >has cardiothoracic appt to discuss pleurodesis Dr Ayers 02/14 [facility] >>>lowered FR to 1200 ml daily (3) SOB (shortness of breath): Plan: improving; back to RA. Related to bilateral pleural effusion especially in the left. >>consider 6 minute walk test or other eval ? though he did one recently I belive as OP (4) Hypertension: Plan: uncontrolled and related to volume overload in this dialysis patient > pls do NOT use standing clonidine (transdermal or po) for him as it will make BP swings more challenging to manage longer term >ok to use prn clonidine if necessary >>>>hydralazine dosing for intermittent HD is bid-tid >> changed to 100 mg bid -continue losartan 50 mg bid -continue amlodipine 10 mg daily >>>>increased coreg to 12.5 mg bid >>>wrote to hold megace which can worsen HTN 10% of time > trial to see if this makes a difference for BP Admission and Anticipated Discharge Date Admission Date: February 01, 2023 Subjective for thoracentesis today. endorses exertional dsypena. also abrupt onset sob overnight resolved w/ oxygen; denies currrent dyspnea when I saw him. less itching again. Review of Systems Review of Systems: All systems reviewed & are unremarkable except as noted in Subjective Physical Exam Constitutional: well developed and well nourished; no acute distress Eyes: EOM intact bilaterally ENMT: Ears: no external ear abnormality Nose: no external nose abnormality Mouth: + dry oral mucous membranes Neck: no nuchal rigidity Respiratory: normal respiratory effort Auscultation: + diminished lung sounds (BL bases) Cardiovascular: Rate/Rhythm: regular rate and regular rhythm Extremities: + AV fistula; no edema Gastrointestinal (Abdomen): Inspection/Auscultation: normal bowel sounds Percussion/Palpation: abdomen soft; abdomen nontender Musculoskeletal: Extremities: strength 5/5 throughout Skin: no rashes, warm and dry Psychiatric: Orientation: alert and oriented x 3 Results & Data Vital Signs (Past 12 Hours) Vital Signs Temp Pulse Pulse Resp BP Pulse Ox O2 Del Method 02/06/23 07:06 36.8 C 74 16 174/84 H 98 Room Air 02/06/23 03:14 36.9 C 77 16 158/88 H 93 Nasal Cannula 02/05/23 23:24 86 02/05/23 23:12 36.7 C 65 15 179/85 H 95 Nasal Cannula 02/05/23 20:40 Room Air, Nasal Cannula O2 Flow Rate 02/06/23 07:06 02/06/23 03:14 2 02/05/23 23:24 02/05/23 23:12 2 02/05/23 20:40 2 Laboratory Results 02/05/23 05:49 02/06/23 05:53
[2023-02-06] MEDS ORDERED: SODIUM CHLORIDE 0.9% 1000ML 1,000 ML IV PRN (08:20)
[2023-02-06] MEDS: LOSARTAN POTASSIUM 50 MG TAB PO SCH ×2 (08:25→20:10)
[2023-02-06] MEDS: carvediloL 6.25 MG TAB PO SCH (08:25)
[2023-02-06] MEDS: SEVELAMER HCL 800 MG TABLET PO SCH ×3 (08:25→17:21)
[2023-02-06] MEDS: amLODIPine BESYLATE 5 MG TAB PO SCH (08:25)
[2023-02-06] MEDS: allopurinoL 100 MG TAB PO SCH (08:26)
[2023-02-06] MEDS: hydrALAZINE TAB 50 MG TAB PO SCH ×4 (08:26→20:11)
[2023-02-06] MEDS: CINACALCET HCL 30 MG TAB PO SCH (08:27)
[2023-02-06] MEDS: NEPHROCAPS PO SCH (08:27)
--- NOTE | 2023-02-06 11:01 | XRay Report ---
SINGLE VIEW CHEST CLINICAL HISTORY: Status post left-sided thoracentesis. FINDINGS: An AP, portable, upright expiratory chest radiograph is compared to study dated 02/05/2023. The heart is enlarged noting atherosclerotic calcification of the thoracic aorta. There is pulmonary vascular congestion. Left larger than right pleural effusions with dependent consolidation. No pneumo thorax is seen. The skeletal structures are osteopenic. The bony thorax is grossly intact. Calcific t endinopathy is seen in the left shoulder. IMPRESSION: 1. No pneumothorax is identified post procedure. 2. Left larger than right pleural effusions with dependent consolidation. 3. Cardiomegaly with pulmonary vascular congestion. ACT 112: Negative or not required by law. Electronically signed by: Tone Mccain M.D. 02/06/2023 11:00 AM
--- NOTE | 2023-02-06 11:06 | Ultrasound Report ---
Ultrasound guided thoracentesis. Clinical indication: Left-sided pleural effusion. Procedure: Procedure and risks were explained. Informed consent was obtained. A final timeout was com pleted. Sonographic examination revealed a large left pleural effusion. The skin of the left risk developer ior chest was prepped and draped in sterile fashion. 1% buffered lidocaine was utilized for skin anes thesia. Utilizing ultrasound guidance, a 5 [place] safety centesis catheter was introduced into the pl eural space and 750 ml of serosanguineous fluid was drained. Ultrasound images were obtained. The pr ocedure was stopped secondary to complaints of pleuritic chest pain. The catheter was removed. Post p rocedure scanning revealed a decrease in the size of the pleural effusion. Postprocedural chest x-ray showed no pneumothorax. Complication: No immediate. Pathology Assistant: Joseph Oakes PA-C. IMPRESSION: Ultrasound guided thoracentesis as described above. Performed, dictated, and signed by Joseph Oakes PA-C; to be co-signed by Dr. Eddy Jacobsen. Electronically signed by: Eddy Jacobsen M.D. 02/06/2023 11:10 AM
[2023-02-06 11:18] LABS: Appearance Pleural Fluid Bloody; Color Pleural Fluid Red; RBC Pleural Fluid Auto 144000 /uL; Source Pleural Fluid Left Lung; WBC Pleural Fluid Auto 870 /uL
[2023-02-06 11:32] LABS: Total Protein Pleural Fluid 3.3 gm/dl
[2023-02-06 11:59] LABS: Eosinophils, Fluid 5 %; Lymphocytes, Fluid 38 %; Mono,Macrophage,Mesothelial 46 %; Neutrophils, Fluid 11 %
--- NOTE | 2023-02-06 17:20 | Hospitalist Progress Note ---
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 He denies any increasing cough or sputum production or febrile illness. Otherwise he reports feeling at his baseline. 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 Pulmonology has evaluated him in the past, had recommended outpatient thoracic surgery evaluation, family states that they have CT surgery appointment on February 14 at [place]. Patient presents this time with worsening breathing for 5 days GLASS CALIBRATOR, does not report any cough/febrile illness GLASS CALIBRATOR to me on day 1 of exam. 12/05/2022 echo with EF of 40 to 45%, grade 1 diastolic dysfunction. Discussed with patient's daughter over the phone 02/02 and 02/03, patient and his daughter both declined aggressive diuresis needed for offloading volume. They are aware about the need for extended/aggressive dialysis. They wanted transfer to [place]. -->> Did call transfer line 02/02, spoke with triage officer who spoke with CT surgery, recommendation is to follow-up as outpatient as scheduled on February 14. Discussed with nephrology, since patient declined aggressive dialysis, plan to continue with the scheduled dialysis and extra dialysis whenever agreeable. His pleural effusion will not be much affected by dialysis alone but would benefit his mild pulm vascular congestion. Pulmonology strongly recommends following up with CT surgeon. Also recommends setting up w/ IR for periodic thoracentesis until definitive eval by CT surgeon, communicated to pt's dtr to have it set up from PCP office or CT surgery office. s/p left thoracentesis 02/06, 750 mL out, follow studies. Dialysis performed later in the day today. Given absence of fever/URI symptoms at presentation, no indication of antibiotic, bibasilar consolidation noted in the admitting imaging could be ate lectasis. We will closely monitor off of antibiotic. Continue telemetry monitoring. Fluid restriction. Hypertensive urgency: Blood pressure elevated at presentation, likely noncompliance/discrepancy secondary to language barrier. We will continue home medication and closely monitor for any need for adjustment of blood pressure medications. Per outpatient chart review his blood pressure medications are amlodipine 10 mg in the morning, clonidine 0.1 mg per 24-hour patch, hydralazine 50 mg 4 times daily, losartan 50 mg twice daily, metoprolol 25 mg twice daily. except for clonidine, all the other medications appears to be prescribed in October 2022 per outpatient chart review. Appreciate nephrology recommendation, use as needed clonidine only if necessary, hydralazine 100 Mg twice daily, losartan 50 mg twice daily, amlodipine 10 Mg daily, Coreg 12.5 Mg twice a day, holding Megace as a trial to see if it improves blood pressure. Other chronic medical conditions: Continue with home medications as and when able. Paroxysmal atrial flutter, patient NSR Prediabetes, hemoglobin A1c 5.8 in 2021 Chronic anemia, hemoglobin at baseline DVT prophylaxis: ambulation, scd Full code Patient's Dtrs: Sandy De La Rosa, [phone]; Shital Bee, [phone] Possible dc juan josé if no new issues. Admission and Anticipated Discharge Date Admission Date: February 01, 2023 Subjective Patient seen and examined at bedside as a follow-up of for concern of HCAP, recurrent pleural effusion/volume overload on the background of ESRD on hemodialysis associated with some shortness of breath prior to arrival. Patient was lying in bed, on room air, NAD, per RN no new acute event overnight. s/p left thoracentesis. Pt denies any increase in cough/changes in appetite or any pain, reports improvement in his subjective sob. He is eating ok and moving bowels ok. Of note, Reached out to [place] transfer line for possible transfer 02/02 --> rec is to f/u as OP w/ CT surgeon at [place] as scheduled on February 14. s/p left thoracentesis 02/06 - 750 ml removed; post procedure CXR w/ no pneumothorax. Physical Exam Physical Exam: GENERAL: Alert and oriented x3. NAD, on RA. HEENT: No pallor, no icterus. Pupils equal, round and reactive to light. Oral mucosa moist. NECK: No JVD, no neck masses. HEART: S1 and S2 heard. Regular rate and rhythm. No murmur, no gallop. RESPIRATORY SYSTEM: Normal AP diameter. No accessory muscle use. No wheezing, no crackles. improved breath sounds over left lung bases. ABDOMEN: Soft, bowel sounds present, nontender, no distention. CENTRAL NERVOUS SYSTEM: No facial droop. Speech is clear. Obeys simple commands. Moves extremities. EXTREMITIES: No edema, no erythema seen. Results & Data Results & Data Vital Signs (Past 12 Hours) Vital Signs Temp Pulse Pulse Pulse Resp BP BP 02/06/23 16:24 70 02/06/23 16:10 36.5 C 68 154/82 H 02/06/23 15:30 67 121/77 02/06/23 16:21 36.4 C L 68 18 138/75 02/06/23 15:00 67 148/69 H 02/06/23 14:30 65 135/76 02/06/23 14:00 68 121/69 02/06/23 13:30 65 119/61 02/06/23 13:00 66 163/74 H 02/06/23 12:30 73 134/87 02/06/23 12:10 36.5 C 73 02/06/23 11:28 36.5 C 72 16 145/68 H 02/06/23 10:19 02/06/23 10:13 76 02/06/23 07:06 36.8 C 74 16 174/84 H Pulse Ox O2 Del Method 02/06/23 16:24 02/06/23 16:10 02/06/23 15:30 02/06/23 16:21 99 Room Air 02/06/23 15:00 02/06/23 14:30 02/06/23 14:00 02/06/23 13:30 02/06/23 13:00 02/06/23 12:30 02/06/23 12:10 02/06/23 11:28 97 Room Air 02/06/23 10:19 Room Air, Nasal Cannula 02/06/23 10:13 02/06/23 07:06 98 Room Air
[2023-02-06] MEDS: carvediloL 12.5 MG TAB PO SCH (20:10)
[2023-02-07] MEDS: PATIROMER CALCIUM SORBITEX 8.4 GM PACK PO SCH (06:11)
[2023-02-07 06:51] LABS: Hematocrit (blood only) 34.7 % (42.0-52.0); Hemoglobin 11.6 g/dl (14.0-18.0); Mean Corpuscular Hemoglobin 27.5 pg (25.0-34.0); Mean Corpuscular Hgb Conc 33.4 g/dL (32.0-36.0); Mean Corpuscular Volume 82.2 fL (80.0-100.0); Mean Platelet Volume 10.8 fL (9.4-12.4); Platelet Count 255 K/uL (130-400); RDW Coefficient of Variation 18.1 % (11.5-14.5); RDW Standard Deviation 52.1 fL (36.4-46.3); Red Blood Count 4.22 M/uL (4.70-6.10)
[2023-02-07 07:14] LABS: BUN Creatinine Ratio 5.9 (10-20); Calcium 10.6 mg/dl (8.6-10.3); Creatinine Clr Calc Pharmacy 9.9 ml/min; Est GFR (Non-African American) 8.7 ml/min; Potassium 3.8 mmol/L (3.5-5.1)
--- NOTE | 2023-02-07 07:50 | XRay Report ---
XR chest 1V portable CLINICAL HISTORY: Chest pain. Thoracentesis. COMPARISON STUDY: Chest CT February 01, 2023. Chest radiograph performed earlier today. FINDINGS: There is no pneumothorax. Bilateral pleural effusions, left larger than right, are again no vangie. These are similar to chest radiograph performed earlier today. Cardiac mediastinal silhouette is stable. Pulmonary vascular congestion has slightly improved. This could be technical. Bibasilar opac ities persist, greater on the left IMPRESSION: No significant change in appearance of the chest. No pneumothorax. Bilateral pleural effu sions and associated bibasilar opacities, greater on the left. ACT 112: Negative or not required by law. Electronically signed by: Sivakumar Renee M.D. 02/07/2023 7:48 AM
[2023-02-07] MEDS: carvediloL 12.5 MG TAB PO SCH (08:56)
[2023-02-07] MEDS: allopurinoL 100 MG TAB PO SCH (08:57)
[2023-02-07] MEDS: NEPHROCAPS PO SCH (08:57)
[2023-02-07] MEDS: amLODIPine BESYLATE 5 MG TAB PO SCH (08:57)
[2023-02-07] MEDS: SEVELAMER HCL 800 MG TABLET PO SCH ×2 (08:57→12:20)
[2023-02-07] MEDS: CINACALCET HCL 30 MG TAB PO SCH (08:58)
[2023-02-07] MEDS: hydrALAZINE TAB 50 MG TAB PO SCH (08:58)
[2023-02-07] MEDS: LOSARTAN POTASSIUM 50 MG TAB PO SCH (08:58)
--- NOTE | 2023-02-07 12:57 | Discharge Summary ---
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 Limited history from patient secondary to language barrier. Medical history significant for systolic heart failure (EF 40 to 45%, TTE 2022), paroxysmal atrial flutter,valvular heart disease (moderate AAS, mild TR/MR), aortic root dilatation, hypertension, hyperlipidemia, ESRD on HD, P ANCA vasculitis as per records, prediabetes, chronic anemia (baseline hemoglobin 11- 12). Monthly admissions since July,. Recent [facility] confinement December 31 to 2022 for respiratory failure secondary to volume overload status post thoracenteses. Pulmonology recommended outpatient thoracic surgery evaluation for possible biopsy) if her fluid reaccumulates. Patient seen at PCP's office last week for follow-up visit. Hypoxemia noted at the office. Home O2 recommended. Patient instructed to follow-up with nephro, cardio, and pulmo services outpatient. CT surgery appointment for recurrent pleural effusion tentatively scheduled February 14 at [facility] [place]. 5 days ago, patient noted cough symptoms productive of green sputum. No chest pain. Patient denies aspiration. No fever, no chills. Increasing shortness of breath. Denies headache. Claims compliant with home medications and dialysis treatments. 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, patient born in [place] Admission Exam Per Admitting Provider GENERAL: Comfortable, no respiratory distress, chronically ill SKIN: Pallor, warm HEENT: alopecia, pale palpebral conjunctivae, no ptosis, dry buccal mucosa NECK : Supple, no tenderness CHEST : Decreased breath sounds, no tenderness HEART : RRR, no obvious murmurs ABDOMEN: Some distention, nontender EXTREMITIES : Minimal LE swelling, no LE tenderness, no other conspicuous deformities noted NEUROLOGIC : Coherent, no facial asymmetry, no other gross focality Principal Diagnosis Large left pleural effusion Volume overload status likely secondary to advanced renal failure in the setting of fluid intake noncompliance versus inadequate dialysis Hypertensive urgency Discharge Exam GENERAL: Alert and oriented x3. NAD, on RA. HEENT: No pallor, no icterus. Pupils equal, round and reactive to light. Oral mucosa moist. NECK: No JVD, no neck masses. HEART: S1 and S2 heard. Regular rate and rhythm. No murmur, no gallop. RESPIRATORY SYSTEM: Normal AP diameter. No accessory muscle use. No wheezing, no crackles. improved breath sounds over left lung bases. ABDOMEN: Soft, bowel sounds present, nontender, no distention. CENTRAL NERVOUS SYSTEM: No facial droop. Speech is clear. Obeys simple commands. Moves extremities. EXTREMITIES: No edema, no erythema seen. Discharge Data Allergies Allergy/AdvReac Type Severity Reaction Status Date / Time No Known Allergies Allergy Verified 02/01/23 18:40 Consultations 02/01/23 21:43 ED Decision to Admit Stat 02/02/23 00:32 Consult Nephrology Routine Consult Pulmonology Routine Ordered Studies 02/01/23 22:59 CT chest diagnostic wo con Stat 02/06/23 14:42 IR thoracentesis w/tube US Routine Hospital Course (1) Pleural effusion: Plan 67-year-old male with PMH of HFrEF [EF 40 to 45%, TTE 2022], paroxysmal a flutter, aortic root dilatation, hypertension, HLD, ESRD on HD, P ANCA vasculitis, prediabetes, chronic anemia [baseline hemoglobin 11-12] and lately recurrent pleural effusion presented to the ED 02/01 with complaint of 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 He denies any increasing cough or sputum production or febrile illness. Otherwise he reports feeling at his baseline. 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 Pulmonology has evaluated him in the past, had recommended outpatient thoracic surgery evaluation, family states that they have CT surgery appointment on February 14 at [place]. 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 12/05/2022 echo with EF of 40 to 45%, grade 1 diastolic dysfunction. Discussed with patient's daughter over the phone 02/02 and 02/03, patient and his daughter both declined aggressive diuresis needed for offloading volume. They are aware about the need for extended/aggressive dialysis. They wanted transfer to [place]. -->> Did call transfer line 02/02, spoke with triage officer who spoke with CT surgery, recommendation is to follow-up as outpatient as scheduled on February 14. Per Nephro, since patient declined aggressive dialysis, plan to continue with the scheduled dialysis and extra dialysis whenever agreeable. His pleural effusion will not be much affected by dialysis alone but would benefit his mild pulm vascular congestion. Pulmonology strongly recommends following up with CT surgeon. Also recommends setting up w/ IR for periodic thoracentesis until definitive eval by CT surgeon, communicated to pt's dtr to have it set up from PCP office or CT surgery office. s/p left thoracentesis 02/06, 750 mL out, follow studies, pt to coordinate on the final results w/ PCP or CT surgery office on discharge. Pt reports feeling better, moving around ok, is hemodynamically stable. Called patient's daughter Mari over the phone, all the questions were answered to their satisfaction. He would like to go home today. Maintain dietary compliance and fluid restriction as per nephrology recommendation. Hypertensive urgency: Blood pressure elevated at presentation, likely noncompliance/discrepancy secondary to language barrier. We will continue home medication and closely monitor for any need for adjustment of blood pressure medications. Per outpatient chart review his blood pressure medications are amlodipine 10 mg in the morning, clonidine 0.1 mg per 24-hour patch, hydralazine 50 mg 4 times daily, losartan 50 mg twice daily, metoprolol 25 mg twice daily. except for clonidine, all the other medications appears to be prescribed in October 2022 per outpatient chart review. Appreciate nephrology recommendation, use as needed clonidine only if necessary, hydralazine 100 Mg twice daily, losartan 50 mg twice daily, amlodipine 10 Mg daily, Coreg 12.5 Mg twice a day, holding Megace as a trial to see if it improves blood pressure. Patient to measure blood pressure twice a day to maintain a log to take to nephrology office or primary care office upon discharge. Other chronic medical conditions: Continue with home medications as and when able. Paroxysmal atrial flutter, patient NSR Prediabetes, hemoglobin A1c 5.8 in 2021 Chronic anemia, hemoglobin at baseline DVT prophylaxis: ambulation, scd Full code Patient's Dtrs: Sandy De La Rosa, [id number]; Shital Bee, [phone] Patient being discharged to home with following instruction at the point of discharge: Follow-up with your primary care physician within a week time and likely you will need labs CBC/CMP/magnesium/phosphorus. Follow-up with the nephrology in 2 to 4 weeks time upon discharge for your long- term management of your blood pressures along with your other chronic renal issues. Follow-up with your CT surgeon on February 14 as scheduled, discuss about definitive management of your recurrent pleural effusion and need for repeated tapping until then. You underwent pleural fluid tapping on the left 02/06 in the hospital, follow-up with the final results on the pleural fluid -- coordinate either with the PCP office or CT surgery office. For your uncontrolled blood pressure, your blood pressure medication has been optimized. Your hydralazine is 100 Mg twice a day, losartan 50 Mg twice a day, amlodipine 10 Mg daily, Coreg 12.5 Mg daily. Also we are holding Megace as a trial to see if it helps improve your blood pressure. Measure blood pressure twice a day to take it to your primary care physician office or nephrology office for further evaluation/management of your blood pressure medications. Take your medications as prescribed. Home Health Attestation I certify that this patient is under my care and that I, or a physicians bookkeeping assistant working with me, had a face to-face encounter that meets the home health [id number] encounter requirements with this patient. The encounter with the patient was in whole, or in part, for the following medical condition, which is the primary reason for home health care (list medical condition): I certify that, based on my findings, the following services are medically necessary home health services: My clinical findings support the need for the above services because: Further, I certify that my clinical findings support that this patient is homebound (i.e. absences from home require considerable and taxing effort and ar e for medical reasons or orthodox services or infrequently or of short duration when for other reasons) because: Certification for Home Health Services: Based on the above findings, I certify that this patient is confined to the home and needs intermittent mcc care, physical therapy and/or speech therapy or continues to need occupational therapy. The patient is under my care, and I have initiated the establishment of the plan of care. This patient will be followed by a physician who will periodically review the plan of care. Total Time Total Time Spent Total Time Spent (In Minutes): 50 Discharge Plan Discharge Items Patient Disposition: Home - Self-Care Reason For Visit: CHF Discharge Diagnosis: Large left pleural effusion Volume overload status likely secondary to advanced renal failure in the setting of fluid intake noncompliance versus inadequate dialysis Hypertensive urgency Activity: Resume your previous activity Non-emergency contact: Primary Care Provider Call non-emergency contact if: you have any medication questions Follow-up/Referrals: Joseph Domingo MD [Physician] - (Date & Time 02/14/2023 2:00 PM Provider Joseph Domingo MD Department Thoracic Surg [facility] ) Cisco Starkey MD [Primary Care Provider] - (Date & Time 02/14/2023 9:40 AM Provider Cisco Starkey MD Department [facility] ) Diet: Dialysis Renal, Heart Healthy and Low Sodium (2gm) Fluids: 1200ml (5 cups) Addtl Attending Provider Instructions: Follow-up with your primary care physician within a week time and likely you will need labs CBC/CMP/magnesium/phosphorus. Follow-up with the nephrology in 2 to 4 weeks time upon discharge for your long- term management of your blood pressures along with your other chronic renal issues. Follow-up with your CT surgeon on February 14 as scheduled, discuss about definitive management of your recurrent pleural effusion and need for repeated tapping until then. You underwent pleural fluid tapping on the left 02/06 in the hospital, follow-up with the final results on the pleural fluid -- coordinate either with the PCP office or CT surgery office. For your uncontrolled blood pressure, your blood pressure medication has been optimized. Your hydralazine is 100 Mg twice a day, losartan 50 Mg twice a day, amlodipine 10 Mg daily, Coreg 12.5 Mg daily. Also we are holding Megace as a trial to see if it helps improve your blood pressure. Measure blood pressure twice a day to take it to your primary care physician office or nephrology office for further evaluation/management of your blood pressure medications. Take your medications as prescribed. Pending Studies at Discharge: Yes (Pleural fluid studies.) Stand-Alone Forms: My [employer], Smoking Cessation Medications and DC Order Prescriptions: New hydralazine 100 mg tablet 100 mg PO BID Qty: 60 0RF carvedilol 12.5 mg Tablet 12.5 mg PO BIDM Qty: 60 0RF Continued calcitriol 0.5 mcg capsule 1.5 mcg PO DAILY Rx Instructions: 3 capsule dose cinacalcet [Sensipar] 30 mg tablet 30 mg PO DAILY Rx Instructions: LAST FILLED 10/20/22 FOR 30 DAYS. RenaPlex-D 800 mcg-12.5 mg -2,000 unit Tablet 1 tab PO DAILY amlodipine 5 mg tablet 10 mg PO DAILY Veltassa 8.4 gram powder in packet 8.4 g PO QAM Rx Instructions: vigorously mix in 3 ounces of water and drink..it will not dissolve ondansetron HCl [Zofran] 4 mg Tablet 4 mg PO Q8H PRN (Reason: NAUSEA/VOMITING) sevelamer carbonate 800 mg tablet 800 mg PO TIDM Rx Instructions: & SNACKS, PER EXT MED HX. guaifenesin [Mucinex] 600 mg Tablet Extended Release 12hr 600 mg PO Q12H PRN (Reason: Congestion) Auryxia 210 mg iron tablet 210 mg PO TIDM Rx Instructions: & SNACKS. PER EXT MED HX. losartan [Cozaar] 50 mg Tablet 50 mg PO [facility]HS allopurinol 100 mg tablet 50 mg PO DAILY Rx Instructions: LAST FILLED 10/03/22 FOR 30 DAYS. Held megestrol 20 mg Tablet 20 mg PO QAM Hold Instructions: Resume on 02/24/23. Visit PCP or Nephrology office prior to resuming your megace for evaluation of your blood pressure management. Discontinued metoprolol succinate 25 mg Tablet Extended Release 24 Hr 25 mg PO BID Qty: 60 1RF hydralazine 50 mg tablet 50 mg PO QID [id number] 0.1 mg EXT WK Discharge Orders: Discharge Order (Routine); Ordered 02/07/23 Ordered By: Erick Schaeffer Admission Data Admit Date/Time: 02/01/23 23:02 Attending Provider: Erick Schaeffer Admit Provider: Dawson De Los Santos Primary Care Provider: Cisco Starkey Other Providers: Dawson De Los Santos ; Rita Munson ; Maicol Damon ; Yocasta Morris Japheth E. ; Dustin Callejas ; Angela Michel ; Ismael Pickering
[2023-02-07 14:17] LABS: Complement C3 88 mg/dL (82-185)
== END 2023-02-07 13:44 | disposition home or self-care (01) | DRG 640 ==
LOC: ED 17:42 → 2S 23:02

== ENCOUNTER 2023-05-17 11:45 | Inpatient (IN) ==
--- NOTE | 2023-05-17 12:06 | Emergency Department Note ---
History of Present Illness General Chief complaint: Shortness of Breath/Dyspnea Stated complaint: SHORTNESS OF BREATH Time Seen by Provider: 05/17/23 11:54 History of Present Illness 67-year-old male presents emergency department reportedly was at [facility] dialysis today receiving dialysis. Patient is end-stage renal disease has a history of CHF and CKD, reportedly received full dialysis but at the time he was complaining of being tired and his pulse oximetry was 77% on EMS arrival. Patient was then started on a nonrebreather. Patient has a prior history of hypoxemic respiratory failure. 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 However he does state that he feels tired. Patient denies any other complaints. There is no other history available to me at this time Home Medications Medication Instructions Recorded Confirmed Type cinacalcet 30 mg tablet (Sensipar) 0 mg PO DAILY 08/19/22 04/15/23 History ferric citrate 210 mg iron tablet 210 mg PO TIDM 02/01/23 04/15/23 History (Auryxia) gabapentin 100 mg capsule 100 mg PO DIRECTED 03/26/23 04/15/23 History allopurinol 100 mg tablet 50 mg PO DAILY #30 tabs 03/28/23 04/15/23 Rx amlodipine 5 mg tablet 10 mg PO DAILY #30 tabs 03/28/23 04/15/23 Rx aspirin 81 mg tablet,delayed 81 mg PO QAM #30 tabs 03/28/23 04/15/23 Rx release atorvastatin 40 mg tablet 40 mg PO HS #30 tabs 03/28/23 04/15/23 Rx hydralazine 100 mg tablet 100 mg PO TID #90 tabs 03/28/23 04/15/23 Rx isosorbide dinitrate 20 mg tablet 20 mg PO TID@0700,1200,1700 #90 03/28/23 04/15/23 Rx tabs losartan 50 mg tablet (Cozaar) 50 mg PO AMHS #30 tabs 03/28/23 04/15/23 Rx metoprolol succinate 50 mg 100 mg PO QDD #60 tabs 03/28/23 04/15/23 Rx tablet,extended release 24 hr sevelamer carbonate 800 mg tablet 800 mg PO TIDM #90 tabs 03/28/23 04/15/23 Rx ergocalciferol (vitamin D2) 1,250 1,250 mcg PO WK 04/15/23 04/15/23 History mcg (50,000 unit) capsule (Vitamin D2) patiromer calcium sorbitex 8.4 8.4 g PO QAM 04/15/23 04/15/23 History gram oral powder packet (Veltassa) doxycycline hyclate 100 mg capsule 100 mg PO BID #3 caps 04/21/23 Rx Allergies Allergy/AdvReac Type Severity Reaction Status Date / Time No Known Allergies Allergy Verified 03/26/23 12:21 Past Med/Surg History Medical History (Updated 05/17/23 @ 13:42 by SREEDHAR Rust) Acute hypoxemic respiratory failure Acute respiratory failure with hypoxia Acute upper gastrointestinal bleeding Anemia Anemia of chronic disease AV fistula Benign prostatic hyperplasia with urinary obstruction Chest pain ESRD (end stage renal disease) on dialysis HD patient follows w/ Dr Munson [facility] 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 Fluid overload Heart failure with acute decompensation, type unknown Hyperkalemia Hypertension Hypervolemia Hypoxia Kidney transplant candidate reason for colonoscopy to get on list Nephrolithiasis Pleural effusion chronic, recurrent Recurrent pleural effusion Restless leg syndrome SOB (shortness of breath) Symptomatic anemia Surgical History H/O inguinal hernia repair History of colonoscopy History of cystoscopy History of thoracentesis History of tooth extraction Status post creation of arteriovenous fistula left arm Family History Other No family history of adverse response to anesthesia No significant family history Social History Smoking Status: Former smoker Tobacco Type: Cigarettes Second Hand Exposure: No; Do You Dip or Chew Tobacco: No; Hx Alcohol Use: No Hx Substance Use: No Preferred Language: Citizen Of [place] Communication Ability: Effective Communication Ability Comment: pt using cell phone to translate Communication Tools: Other Furniture Removalist Required: Yes Beliefs That Will Affect Care: None marital status: Current Living Situation: Family current occupational status: employed Feels Safe at Home: Yes Assistive Devices: Glasses Review of Systems Unobtainable due to reduced consciousness Physical Exam Vital Signs Vital Signs - 24 hr 05/17/23 12:01 05/17/23 12:01 05/17/23 12:01 Temperature 37.5 C Temperature Source Oral Pulse Rate 88 Pulse Rate [Apical] Pulse Rate from SpO2 Sensor Respiratory Rate 38 H Respiratory Effort / Characteristics Labored Short of Breath Labored Short of Breath Respiratory Depth Respiratory Pattern Tachypnea Blood Pressure 180/102 H Blood Pressure Mean 128 Pulse Oximetry 77 L 94 Oxygen Delivery Method Room Air Non-rebreather Oxygen Flow Rate 15 Fraction of Inspired Oxygen Sepsis Recent Fever Within 48 Hours No Sepsis New/Unexplained Change in Mental Status No Sepsis Action Taken by Nursing No Action Required 05/17/23 12:09 05/17/23 12:08 05/17/23 11:53 Temperature Temperature Source Pulse Rate 103 H Pulse Rate [Apical] 90 Pulse Rate from SpO2 Sensor Respiratory Rate 34 H Respiratory Effort / Characteristics Short of Breath Respiratory Depth Respiratory Pattern Blood Pressure 180/102 H Blood Pressure Mean 124 Pulse Oximetry 94 Oxygen Delivery Method Non-rebreather Room Air Oxygen Flow Rate 15 Fraction of Inspired Oxygen Sepsis Recent Fever Within 48 Hours Sepsis New/Unexplained Change in Mental Status Sepsis Action Taken by Nursing 05/17/23 11:54 05/17/23 12:00 05/17/23 12:10 Temperature Temperature Source Pulse Rate 99 H 89 91 H Pulse Rate [Apical] Pulse Rate from SpO2 Sensor 91 H 124 H Respiratory Rate 46 H 33 H 21 Respiratory Effort / Characteristics Respiratory Depth Respiratory Pattern Blood Pressure Blood Pressure Mean Pulse Oximetry 72 L 91 Oxygen Delivery Method Room Air Non-rebreather Oxygen Flow Rate 15 Fraction of Inspired Oxygen Sepsis Recent Fever Within 48 Hours Sepsis New/Unexplained Change in Mental Status Sepsis Action Taken by Nursing 05/17/23 12:20 05/17/23 12:58 05/17/23 12:26 Temperature Temperature Source Pulse Rate 94 H 93 H 88 Pulse Rate [Apical] Pulse Rate from SpO2 Sensor Respiratory Rate 24 26 H 23 Respiratory Effort / Characteristics Spontaneous Respiratory Depth Normal Respiratory Pattern Regular Blood Pressure Blood Pressure Mean Pulse Oximetry 100 97 Oxygen Delivery Method Oxygen Flow Rate Fraction of Inspired Oxygen 60 Sepsis Recent Fever Within 48 Hours Sepsis New/Unexplained Change in Mental Status Sepsis Action Taken by Nursing 05/17/23 12:26 05/17/23 12:30 05/17/23 12:40 Temperature Temperature Source Pulse Rate 87 86 Pulse Rate [Apical] Pulse Rate from SpO2 Sensor 86 60 Respiratory Rate 22 23 Respiratory Effort / Characteristics Respiratory Depth Respiratory Pattern Blood Pressure 142/100 H Blood Pressure Mean 116 Pulse Oximetry 100 100 Oxygen Delivery Method Oxygen Flow Rate Fraction of Inspired Oxygen Sepsis Recent Fever Within 48 Hours Sepsis New/Unexplained Change in Mental Status Sepsis Action Taken by Nursing 05/17/23 12:50 05/17/23 13:00 05/17/23 13:10 Temperature Temperature Source Pulse Rate 84 86 75 Pulse Rate [Apical] Pulse Rate from SpO2 Sensor 54 L 72 73 Respiratory Rate 20 17 21 Respiratory Effort / Characteristics Respiratory Depth Respiratory Pattern Blood Pressure Blood Pressure Mean Pulse Oximetry 100 100 100 Oxygen Delivery Method Oxygen Flow Rate Fraction of Inspired Oxygen Sepsis Recent Fever Within 48 Hours Sepsis New/Unexplained Change in Mental Status Sepsis Action Taken by Nursing 05/17/23 13:20 05/17/23 13:30 05/17/23 13:40 Temperature Temperature Source Pulse Rate 91 H 95 H 86 Pulse Rate [Apical] Pulse Rate from SpO2 Sensor 54 L 65 65 Respiratory Rate 23 25 H 26 H Respiratory Effort / Characteristics Respiratory Depth Respiratory Pattern Blood Pressure 144/86 H Blood Pressure Mean 105 Pulse Oximetry 100 100 99 Oxygen Delivery Method Oxygen Flow Rate Fraction of Inspired Oxygen Sepsis Recent Fever Within 48 Hours Sepsis New/Unexplained Change in Mental Status Sepsis Action Taken by Nursing GENERAL: Patient is awake alert in no acute distress patient is resting comfortably; slow to respond at times however will wake up and answer questions EYES: The conjunctivae are clear. The pupils are round and reactive. Head exam normocephalic atraumatic EARS, NOSE, MOUTH AND THROAT: The nose is without any evidence of any deformity. Mucous membranes are moist. Tongue is midline. NECK: The neck is nontender and supple. RESPIRATORY: Normal respiratory effort is noted there is no evidence of wheezing rhonchi or rales CARDIOVASCULAR: Regular rate and rhythm noted there no murmurs rubs or gallops normal S1 normal S2. GASTROINTESTINAL: The abdomen is soft. Abdomen is nontender. BACK: No midline tenderness or or step-off noted range of motion in flexion extension as well as rotation no signs of muscle spasm noted MUSCULOSKELETAL/EXTREMITIES: There is no evidence of gross deformity full range of motion is noted in the hips and shoulders. Left upper extremity shows an AV graft present SKIN: There is no obvious evidence of any rash. There are no petechiae, pallor or cyanosis noted. NEUROLOGIC: Patient is awake alert and oriented x1 Course Reevaluation(s) Reevaluation #1: Patient was started on BiPAP with 12/6 with 60% FiO2 per the respiratory therapist. Patient has no change in mental status. Patient is stable with hemodynamic stability currently. Time: 13: Consultations Consultation #1: [facility]. Time: : Critical Care Time Critical Care Time: Yes Total Critical Care Time: 35 I have personally spent greater than 35 minutes of critical care time in the direct management of this patient. This includes bedside care, interpretation of diagnostic studies, and testing, discussion with consultants, patient, and family members, and other required patient management activities. These minutes are in excess of all separately billable procedures. Medical Decision Making Medical Records Attestation: I reviewed the patient's medical records. Home Medications Current Medication List: was personally reviewed by me Laboratory Data Attestation: I reviewed the patient's lab results. Labs interpreted by me patient has an elevated creatinine, mild hyperglycemia, elevated troponin which is chronic in nature 05/17/23 12:05/17/23 12: Lab Results 05/17/23 05/17/23 05/17/23 Range/Units 12:27 12:27 12:27 WBC 10.57 (4.8-10.8) K/ul RBC 3.58 L (4.70-6.10) M/uL Hgb 10.7 L (14.0-18.0) g/dl Hct 33.3 L (42.0-52.0) % MCV 93.0 (80.0-100.0) fL MCH 29.9 (25.0-34.0) pg MCHC 32.1 (32.0-36.0) g/dL RDW Std Deviation 55.9 H (36.4-46.3) fL RDW Coeff of Diamond 16.4 H (11.5-14.5) % Plt Count 194 (130-400) K/uL MPV 10.6 (9.4-12.4) fL Immature Gran % (Auto) 1.1 % Neut % (Auto) 86.0 % Lymph % (Auto) 6.6 % Miner % (Auto) 4.1 % Eos % (Auto) 1.9 % Baso % (Auto) 0.3 % Neut # (Auto) 9.09 H (1.40-6.50) K/uL Lymph # (Auto) 0.70 L (1.20-3.40) K/uL Miner # (Auto) 0.43 (0.11-0.59) K/uL Eos # (Auto) 0.20 (0.00-0.50) K/uL Baso # (Auto) 0.03 (0.00-0.20) K/uL Immature Gran # (Auto) 0.12 (0.01-0.20) K/uL PT (9.0-12.0) Seconds INR (0.9-1.1) APTT (21.0-31.0) Seconds PTT Ratio VBG pH (7.36-7.41) VBG pCO2 (38-50) mmHg VBG pO2 mmHg VBG HCO3 mmol/L VBG O2 Saturation % VBG Base Excess mEq/L Sodium 139 (136-145) mmol/L Potassium 3.6 (3.5-5.1) mmol/L Chloride 97 L (98-107) mmol/L Carbon Dioxide 33 H (21-32) mmol/L Anion Gap 9 (3-11) BUN 24 H (6-23) mg/dl Creatinine 3.53 H (0.6-1.4) mg/dl Est Cr Clr Drug Dosing Not Reportable Est GFR ( Amer) 19.4 ml/min Est GFR (Non-Af Amer) 16.8 ml/min BUN/Creatinine Ratio 6.8 L (10-20) Glucose 59 L (70-99(Fasting)) mg/dl Lactate 2.1 H* (0.4-2.0) mmol/L Calcium 8.5 L (8.6-10.3) mg/dl Magnesium 1.9 (1.7-2.4) mg/dl Total Bilirubin 1.0 (0.2-1.0) mg/dl Direct Bilirubin 0.1 (0-0.2) mg/dl AST 31 (13-39) U/L ALT 29 (7-52) U/L Alkaline Phosphatase 72 (34-104) U/L Troponin I High Sens 414.8 H* (0-20) pg/ml B-Natriuretic Peptide (0-100) pg/ml Total Protein 6.0 (6.0-8.3) gm/dl Albumin 3.6 (3.4-5.0) gm/dl Procalcitonin (0-0.5) ng/ml 05/17/23 05/17/23 05/17/23 Range/Units 12:27 12:27 12:27 WBC (4.8-10.8) K/ul RBC (4.70-6.10) M/uL Hgb (14.0-18.0) g/dl Hct (42.0-52.0) % MCV (80.0-100.0) fL MCH (25.0-34.0) pg MCHC (32.0-36.0) g/dL RDW Std Deviation (36.4-46.3) fL RDW Coeff of Diamond (11.5-14.5) % Plt Count (130-400) K/uL MPV (9.4-12.4) fL Immature Gran % (Auto) % Neut % (Auto) % Lymph % (Auto) % Miner % (Auto) % Eos % (Auto) % Baso % (Auto) % Neut # (Auto) (1.40-6.50) K/uL Lymph # (Auto) (1.20-3.40) K/uL Miner # (Auto) (0.11-0.59) K/uL Eos # (Auto) (0.00-0.50) K/uL Baso # (Auto) (0.00-0.20) K/uL Immature Gran # (Auto) (0.01-0.20) K/uL PT 10.3 (9.0-12.0) Seconds INR 0.9 (0.9-1.1) APTT 21.9 (21.0-31.0) Seconds PTT Ratio 0.8 VBG pH (7.36-7.41) VBG pCO2 (38-50) mmHg VBG pO2 mmHg VBG HCO3 mmol/L VBG O2 Saturation % VBG Base Excess mEq/L Sodium (136-145) mmol/L Potassium (3.5-5.1) mmol/L Chloride (98-107) mmol/L Carbon Dioxide (21-32) mmol/L Anion Gap (3-11) BUN (6-23) mg/dl Creatinine (0.6-1.4) mg/dl Est Cr Clr Drug Dosing Est GFR ( Amer) ml/min Est GFR (Non-Af Amer) ml/min BUN/Creatinine Ratio (10-20) Glucose (70-99(Fasting)) mg/dl Lactate (0.4-2.0) mmol/L Calcium (8.6-10.3) mg/dl Magnesium (1.7-2.4) mg/dl Total Bilirubin (0.2-1.0) mg/dl Direct Bilirubin (0-0.2) mg/dl AST (13-39) U/L ALT (7-52) U/L Alkaline Phosphatase (34-104) U/L Troponin I High Sens (0-20) pg/ml B-Natriuretic Peptide > 4700 H (0-100) pg/ml Total Protein (6.0-8.3) gm/dl Albumin (3.4-5.0) gm/dl Procalcitonin 0.37 (0-0.5) ng/ml 05/17/23 Range/Units 12:27 WBC (4.8-10.8) K/ul RBC (4.70-6.10) M/uL Hgb (14.0-18.0) g/dl Hct (42.0-52.0) % MCV (80.0-100.0) fL MCH (25.0-34.0) pg MCHC (32.0-36.0) g/dL RDW Std Deviation (36.4-46.3) fL RDW Coeff of Diamond (11.5-14.5) % Plt Count (130-400) K/uL MPV (9.4-12.4) fL Immature Gran % (Auto) % Neut % (Auto) % Lymph % (Auto) % Miner % (Auto) % Eos % (Auto) % Baso % (Auto) % Neut # (Auto) (1.40-6.50) K/uL Lymph # (Auto) (1.20-3.40) K/uL Miner # (Auto) (0.11-0.59) K/uL Eos # (Auto) (0.00-0.50) K/uL Baso # (Auto) (0.00-0.20) K/uL Immature Gran # (Auto) (0.01-0.20) K/uL PT (9.0-12.0) Seconds INR (0.9-1.1) APTT (21.0-31.0) Seconds PTT Ratio VBG pH 7.47 H (7.36-7.41) VBG pCO2 52 H (38-50) mmHg VBG pO2 41 mmHg VBG HCO3 38 mmol/L VBG O2 Saturation 67.3 % VBG Base Excess 12.4 mEq/L Sodium (136-145) mmol/L Potassium (3.5-5.1) mmol/L Chloride (98-107) mmol/L Carbon Dioxide (21-32) mmol/L Anion Gap (3-11) BUN (6-23) mg/dl Creatinine (0.6-1.4) mg/dl Est Cr Clr Drug Dosing Est GFR ( Amer) ml/min Est GFR (Non-Af Amer) ml/min BUN/Creatinine Ratio (10-20) Glucose (70-99(Fasting)) mg/dl Lactate (0.4-2.0) mmol/L Calcium (8.6-10.3) mg/dl Magnesium (1.7-2.4) mg/dl Total Bilirubin (0.2-1.0) mg/dl Direct Bilirubin (0-0.2) mg/dl AST (13-39) U/L ALT (7-52) U/L Alkaline Phosphatase (34-104) U/L Troponin I High Sens (0-20) pg/ml B-Natriuretic Peptide (0-100) pg/ml Total Protein (6.0-8.3) gm/dl Albumin (3.4-5.0) gm/dl Procalcitonin (0-0.5) ng/ml Imaging Data Attestation: I personally reviewed and interpreted this imaging study as fo llows: My Impression: Chest x-ray interpreted by me cardiomegaly and bilateral pleural effusions are present Radiologist's Impression: Chest X-Ray 05/17/23 11:54 XR chest 1V portable CLINICAL HISTORY: Sepsis. COMPARISON STUDY: Chest radiograph April 20, 2023. Chest CT February 01, 2023. FINDINGS: There is no pneumothorax. A moderate to large left pleural effusion has significantly increased in size since prior exam. There is a small right pleural effusion, unchanged. Bibasilar opacities are again noted. There is cardiomegaly with interstitial thickening, increased since prior exam. IMPRESSION: 1. Significant increase in size of a moderate to large left pleural effusion. No significant change in a small right pleural effusion. Increase in bibasilar opacities, greater on the left. 2. Cardiomegaly with interstitial pulmonary edema. ACT 112: Negative or not required by law. Electronically signed by: Sivakumar Renee M.D. 05/17/2023 12:48 PM ECG Data Attestation: I personally reviewed and interpreted this ECG as follows: Additional Comments: EKG interpreted by me sinus rhythm left ventricular hypertrophy rate of [address] segment elevation or depression poor R wave progression the precordium normal axis Telemetry was ordered by me interpreted as sinus rhythm rate of 100 MDM Narrative Medical decision making differential diagnosis includes acute hypercarbic respiratory failure, acute hypoxemic respiratory failure, pneumonia, pleural effusion, sepsis, volume overload, renal failure, cardiac dysrhythmia, anemia, COPD exacerbation Plan is to check labs, sepsis protocol, chest x-ray, VBG I have reviewed the discharge summary of April 21, [address] Glaser regarding this patient's chronic hemodialysis, CHF, acute hypoxemic respiratory failure and his treatment plan while he was in the hospital. Patient was started on BiPAP This case was discussed with the [facility] hospitalist for admission I do not suspect the patient to be in severe sepsis at this time Patient has improved on BiPAP I have reevaluated the patient multiple times regarding his respiratory status and he is currently stable at the time of admission disposition of 1328 Impression & Plan Respiratory failure, Elevated troponin, Renal failure (ARF), acute on chronic Discharge Plan Visit Data Chief Complaint: Shortness of Breath/Dyspnea Stated Complaint: SHORTNESS OF BREATH ED Provider: Justin Rodriguez Discharge Problem: Respiratory failure, Elevated troponin, Renal failure (ARF), acute on chronic Patient Disposition: Admitted As Inpatient Forms Stand Alone Forms: My [employer] Prescriptions Prescriptions: No Action cinacalcet [Sensipar] 30 mg tablet 0 mg PO DAILY Rx Instructions: [facility] unable to verify LAST FILLED 10/20/22 FOR 30 DAYS. Auryxia 210 mg iron tablet 210 mg PO TIDM Rx Instructions: Total 5 tabs per day. Picked up on January 29 & SNACKS. PER EXT MED HX. ergocalciferol (vitamin D2) [Vitamin D2] 1,250 mcg (50,000 unit) capsule 1,250 mcg PO WK Veltassa 8.4 gram powder in packet 8.4 g PO QAM doxycycline hyclate 100 mg Capsule 100 mg PO BID Qty: 3 0RF gabapentin 100 mg capsule 100 mg PO DIRECTED isosorbide dinitrate 20 mg Tablet 20 mg PO TID@0700,1200,1700 Qty: 90 0RF metoprolol succinate 50 mg Tablet Extended Release 24 Hr 100 mg PO QDD Qty: 60 0RF Hold Instructions: Resume on 04/27/23. Hold this medication until told to resume by your Hand Box Coverer due to bradycardia aspirin 81 mg Tablet,Delayed Release (Dr/Ec) 81 mg PO QAM Qty: 30 0RF losartan [Cozaar] 50 mg Tablet 50 mg PO AMHS Qty: 30 0RF amlodipine 5 mg tablet 10 mg PO DAILY Qty: 30 0RF hydralazine 100 mg tablet 100 mg PO TID Qty: 90 0RF Rx Instructions: Hasnt picked up this dose yet, picked up 50 mg first (QID) sevelamer carbonate 800 mg tablet 800 mg PO TIDM Qty: 90 0RF Rx Instructions: & SNACKS, PER EXT MED HX. 6 tablets daily atorvastatin 40 mg tablet 40 mg PO HS Qty: 30 0RF allopurinol 100 mg tablet 50 mg PO DAILY Qty: 30 0RF Rx Instructions: (50mg) half tab daily LAST FILLED 10/03/22 FOR 30 DAYS. Referrals Referrals: Cisco Starkey MD [Primary Care Provider] -
[2023-05-17 12:46] LABS: Basophils # (auto) 0.03 K/uL (0.00-0.20); Basophils % (auto) 0.3 %; Eosinophils % (auto) 1.9 %; Hematocrit (blood only) 33.3 % (42.0-52.0); Hemoglobin 10.7 g/dl (14.0-18.0); Immature Granulocytes # (auto) 0.12 K/uL (0.01-0.20); Immature Granulocytes % (auto) 1.1 %; Lymphocytes % (auto) 6.6 %; Mean Corpuscular Hemoglobin 29.9 pg (25.0-34.0); Mean Corpuscular Hgb Conc 32.1 g/dL (32.0-36.0); Mean Platelet Volume 10.6 fL (9.4-12.4); Monocytes # (auto) 0.43 K/uL (0.11-0.59); Monocytes % (auto) 4.1 %; Neutrophils # (auto) 9.09 K/uL (1.40-6.50); Platelet Count 194 K/uL (130-400); RDW Coefficient of Variation 16.4 % (11.5-14.5); RDW Standard Deviation 55.9 fL (36.4-46.3); Red Blood Count 3.58 M/uL (4.70-6.10); White Blood Count 10.57 K/ul (4.8-10.8)
--- NOTE | 2023-05-17 12:49 | XRay Report ---
XR chest 1V portable CLINICAL HISTORY: Sepsis. COMPARISON STUDY: Chest radiograph April 20, 2023. Chest CT February 01, 2023. FINDINGS: There is no pneumothorax. A moderate to large left pleural effusion has significantly incre ased in size since prior exam. There is a small right pleural effusion, unchanged. Bibasilar opacitie s are again noted. There is cardiomegaly with interstitial thickening, increased since prior exam. IMPRESSION: 1. Significant increase in size of a moderate to large left pleural effusion. No significant change i n a small right pleural effusion. Increase in bibasilar opacities, greater on the left. 2. Cardiomegaly with interstitial pulmonary edema. ACT 112: Negative or not required by law. Electronically signed by: Sivakumar Renee M.D. 05/17/2023 12:48 PM
[2023-05-17 12:55] LABS: Base Excess VBG 12.4 mEq/L; HCO3 VBG 38 mmol/L; Oxygen Saturation VBG 67.3 %; PCO2 VBG 52 mmHg (38-50); PO2 VBG 41 mmHg; pH VBG 7.47 (7.36-7.41)
[2023-05-17 13:05] LABS: Alanine Aminotransferase 29 U/L (7-52); Albumin Level 3.6 gm/dl (3.4-5.0); Alkaline Phosphatase 72 U/L (34-104); Anion Gap 9 (3-11); Aspartate Aminotransferase 31 U/L (13-39); BUN Creatinine Ratio 6.8 (10-20); Bilirubin Direct 0.1 mg/dl (0-0.2); Blood Urea Nitrogen 24 mg/dl (6-23); Calcium 8.5 mg/dl (8.6-10.3); Carbon Dioxide 33 mmol/L (21-32); Chloride 97 mmol/L (98-107); Est GFR (African American) 19.4 ml/min; Est GFR (Non-African American) 16.8 ml/min; Glucose 59 mg/dl (70-99(Fasting)); Magnesium 1.9 mg/dl (1.7-2.4); Potassium 3.6 mmol/L (3.5-5.1); Sodium 139 mmol/L (136-145)
[2023-05-17 13:17] LABS: Troponin I High Sensitivity 414.8 pg/ml (0-20)
[2023-05-17 13:18] LABS: INR 0.9 (0.9-1.1); Partial Thromboplastin Ratio 0.8; Partial Thromboplastin Time 21.9 Seconds (21.0-31.0); Prothrombin Time 10.3 Seconds (9.0-12.0)
[2023-05-17] MEDS ORDERED: POLYETHYLENE (MIRALAX) 17 GM PACK PO PRN (13:30)
[2023-05-17] MEDS ORDERED: ALUMINUM/MAGNESIUM SUSP 30 ML UDC PO PRN (13:30)
[2023-05-17] MEDS ORDERED: ONDANSETRON INJ 2 MG/ML 2 ML VIAL IV PRN (13:30)
[2023-05-17] MEDS ORDERED: ACETAMINOPHEN 325 MG TAB PO PRN (13:30)
[2023-05-17] MEDS ORDERED: MAGNESIUM HYDROXIDE SUSP 30 ML UDC PO PRN (13:30)
--- NOTE | 2023-05-17 13:40 | History & Physical Report ---
Date of Service May 17, 2023 Assessment & Plan (1) Acute hypoxemic respiratory failure: (2) Recurrent pleural effusion: (3) HFrEF (heart failure with reduced ejection fraction): (4) Hypertensive urgency: (5) ESRD (end stage renal disease) on dialysis: (6) Anemia of chronic disease: (7) Goals of care, counseling/discussion: Plan This is a 67-year-old Greek-speaking male with PMHx of HTN, HFrEF 40-45%, hypoxemia respiratory failure with recurrent b/l pleural effusions secondary to volume overload, paroxysmal a flutter, aortic root dilatation,ESRD on HD MWF, anemia of chronic disease, protein calorie malnutrition who presents to the hospital with worsening SOB during hemodialysis at [facility]. Pt is Anuric. We were able to use a biblical languages professor service; however, patient was somnolent and only answered yes and no to questions with keeping his eyes closed. Patient follows with pulmonary regarding thoracentesis. His latest pleural fluid cytology was from December 2022 revealing inflammatory cells without malignancy. His last thoracentesis was completed by IR 04/20/2023 left side with 1 L juan carlos- colored fluid removed. Echo from 04/18/2023 revealed an LVEF of 45 to 50%. Severe concentric LVH with mild global hypokinesis. No leukocytosis, Troponin chronically elevated 414.8; do not suspect ACS, rather ischemic demand, Lactate 2.1, Creatinine 3.53. For now, unfortunately, this gentleman is a complex end- stage patient with kidney, lung, and heart failure. Overall, patient has continued to have recurrent bilateral pleural effusions secondary to volume overload with end-stage HFrEF/ESRD. Patient is followed closely by pulmonary medicine with last visit 04/19 indicating numerous thoracentesis in this patient's past with no indication for pleurodesis. Each time thoracentesis is discussed patient appears to be reluctant. Was able to discuss directly with Dr. Pickering who indicated that the patient has been placed on standing order for him to receive thoracentesis every 4 weeks moving forward; discussed with Juan David Oakes and IR and plan for thoracentesis 05/18 at 10 AM. Okay to continue aspirin and heparin sq. Patient has made significant progression from peritoneal dialysis to hemodialysis over the past year; historically patient has had flat affect and is reluctant to having any goals of care conversation. While I was in the room the patient's daughter did call at the bedside phone and I was able to talk to her and give her an update. Patient daughter is receptive to having overall goals of care conversation and palliative medicine consultation. Reinvolve Nephro. Acute hypoxemia Respiratory Failure: Recurrent pleural effusions: Acute uncontrolled CXR: Significant increase in size of a moderate to large left pleural effusion. No significant change in a small right pleural effusion. Increase in bibasilar opacities, greater on the left. Cardiomegaly with interstitial pulmonary edema. NPO while on Bipap last thoracentesis was completed by IR 04/20/2023 left side with 1 L juan carlos- colored fluid removed Was able to discusswith Pulm who indicated that the patient has been placed on standing order for him to receive thoracentesis every 4 weeks moving forward discussed with Juan David Oakes and IR and plan for thoracentesis 05/18 at 10 AM. Ok to continue Heparin SQ and ASA HFrEF: Acute uncontrolled BNP pending Most recent ECHO: 04/18/2023 revealed an LVEF of 45 to 50%. Severe concentric LVH with mild global hypokinesis HTN: Chronic stable Takes Amlodipine, Hydralazine, Isosorbide dinitrate, Losartan, and Metoprolol; continue ESRD: Nephro consult Last HD session today 05/17, underwent full session x 4 hr . normal MWF schedule. Access HD: Left AVF Resume home medications/supplements per nephrology Anuric Dialysis Diet when off Bipap; NPO on Bipap Anemia of Chronic Disease: Hgb 10.7; baseline around 11 No overt signs of bleeding Goals of care conversation: complex end-stage patient with kidney, lung, and heart failure. Overall, patient has continued to have recurrent bilateral pleural effusions secondary to volume overload with end-stage HFrEF/ESRD. Pt is followed closely by pulmonary medicine with last visit 04/19 indicating numerous thoracentesis in this patient's past with no indication for pleurodes is. Each time thoracentesis is discussed patient appears to be reluctant. Patient has made significant progression from peritoneal dialysis to hemodialysis over the past year; historically patient has had flat affect and is reluctant to having any goals of care conversation. While I was in the room the patient's daughter did call at the bedside phone and I was able to talk to her and give her an update. Patient daughter is receptive to having overall goals of care conversation and palliative medicine consultation. Disposition: PCP: Dr. Car Code Status: Full Code VTE Prophylaxis: Heparin SQ I spent a total of 87 minutes coordinating, documenting, and providing care for this patient excluding time spent in the performance of separately billed services. All of the aforementioned completed while collaborating with the assigned attending physician for a full treatment plan. Please see their addendum for further details. History of Present Illness Chief Complaint: Hypoxemic Respiratory Failure, ESRD, HFrEF Primary Care Provider: Cisco Starkey MD This is a 67-year-old Greek-speaking male with PMHx of HTN, chronic systolic CHF EF of 40-45%, paroxysmal a flutter, aortic root dilatation,end-stage renal disease on hemodialysis on MWF, anemia of chronic disease, protein calorie malnutrition who presents to the hospital with worsening shortness of breath during hemodialysis at [facility]. Pt is Anuric. We were able to use a biblical languages professor service; however, patient was somnolent and only answered yes and no to questions with keeping his eyes closed. Patient follows with pulmonary regarding thoracentesis. His latest pleural fluid cytology was from December 2022 revealing inflammatory cells without malignancy. His last thoracentesis was completed by IR 04/20/2023 left side with 1 L juan carlos-colored fluid removed. Echo from 04/18/2023 revealed an LVEF of 45 to 50%. Severe concentric LVH with mild global hypokinesis. No leukocytosis, Troponin chronically elevated 414.8; do not suspect ACS, rather ischemic demand, Lactate 2.1, Creatinine 3.53. For now, unfortunately, this gentleman is a complex end-stage patient with kidney, lung, and heart failure. Overall, patient has continued to have recurrent bilateral pleural effusions secondary to volume overload with end- stage HFrEF/ESRD. Patient is followed closely by pulmonary medicine with last visit 04/19 indicating numerous thoracentesis in this patient's past with no indication for pleurodesis. Each time thoracentesis is discussed patient appears to be reluctant. Was able to discuss directly with Dr. Pickering who indicated that the patient has been placed on standing order for him to receive thoracentesis every 4 weeks moving forward; discussed with Juan David Oakes and IR and plan for thoracentesis 05/18 at 10 AM. Okay to continue aspirin and heparin sq. Patient has made significant progression from peritoneal dialysis to hemodialysis over the past year; historically patient has had flat affect and is reluctant to having any goals of care conversation. While I was in the room the patient's daughter did call at the bedside phone and I was able to talk to her and give her an update. Patient daughter is receptive to having overall goals of care conversation and palliative medicine consultation. Patient will be admitted for further evaluation and management. Please see A/P for further details. Allergies Allergy/AdvReac Type Severity Reaction Status Date / Time No Known Allergies Allergy Verified 03/26/23 12:21 Home Medications Medication Instructions Recorded Confirmed Type cinacalcet 30 mg tablet (Sensipar) 0 mg PO DAILY 08/19/22 05/17/23 History ferric citrate 210 mg iron tablet 210 mg PO TIDM 02/01/23 05/17/23 History (Auryxia) gabapentin 100 mg capsule 100 mg PO DIRECTED 03/26/23 05/17/23 History allopurinol 100 mg tablet 50 mg PO DAILY #30 tabs 03/28/23 05/17/23 Rx amlodipine 5 mg tablet 10 mg PO DAILY #30 tabs 03/28/23 05/17/23 Rx aspirin 81 mg tablet,delayed 81 mg PO QAM #30 tabs 03/28/23 05/17/23 Rx release atorvastatin 40 mg tablet 40 mg PO HS #30 tabs 03/28/23 05/17/23 Rx hydralazine 100 mg tablet 100 mg PO TID #90 tabs 03/28/23 05/17/23 Rx isosorbide dinitrate 20 mg tablet 20 mg PO TID@0700,1200,1700 #90 03/28/23 05/17/23 Rx tabs losartan 50 mg tablet (Cozaar) 50 mg PO AMHS #30 tabs 03/28/23 05/17/23 Rx metoprolol succinate 50 mg 100 mg PO QDD #60 tabs 03/28/23 05/17/23 Rx tablet,extended release 24 hr sevelamer carbonate 800 mg tablet 800 mg PO TIDM #90 tabs 03/28/23 05/17/23 Rx ergocalciferol (vitamin D2) 1,250 1,250 mcg PO WK 04/15/23 05/17/23 History mcg (50,000 unit) capsule (Vitamin D2) patiromer calcium sorbitex 8.4 8.4 g PO QAM 04/15/23 05/17/23 History gram oral powder packet (Veltassa) doxycycline hyclate 100 mg capsule 100 mg PO BID #3 caps 04/21/23 05/17/23 Rx Past Med/Surg History Medical History (Updated 05/17/23 @ 13:42 by SREEDHAR Rust) Acute hypoxemic respiratory failure Acute respiratory failure with hypoxia Acute upper gastrointestinal bleeding Anemia Anemia of chronic disease AV fistula Benign prostatic hyperplasia with urinary obstruction Chest pain ESRD (end stage renal disease) on dialysis HD patient follows w/ Dr Munson [facility] 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 Fluid overload Heart failure with acute decompensation, type unknown Hyperkalemia Hypertension Hypervolemia Hypoxia Kidney transplant candidate reason for colonoscopy to get on list Nephrolithiasis Pleural effusion chronic, recurrent Recurrent pleural effusion Restless leg syndrome SOB (shortness of breath) Symptomatic anemia Surgical History H/O inguinal hernia repair History of colonoscopy History of cystoscopy History of thoracentesis History of tooth extraction Status post creation of arteriovenous fistula left arm Family History Other No family history of adverse response to anesthesia No significant family history Social History Smoking Status: Former smoker Tobacco Type: Cigarettes Second Hand Exposure: No; Do You Dip or Chew Tobacco: No; Hx Alcohol Use: No Hx Substance Use: No Preferred Language: Greek Communication Ability: Effective Communication Ability Comment: pt using cell phone to translate Communication Tools: Other Folded Cloth Taper Required: Yes Beliefs That Will Affect Care: None marital status: Current Living Situation: Family current occupational status: employed Feels Safe at Home: Yes Assistive Devices: Glasses Review of Systems Review of Systems: 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 Dr. Rush's addendum for physical examination Results & Data Results & Data Vital Signs (Past 12 Hours) Vital Signs Temp Pulse Pulse Resp BP Pulse Ox O2 Del Method 05/17/23 12:58 93 H 26 H 100 05/17/23 12:20 94 H 24 05/17/23 12:10 91 H 21 05/17/23 12:00 89 33 H 91 Non-rebreather 05/17/23 11:54 99 H 46 H 72 L Room Air 05/17/23 11:53 180/102 H Room Air 05/17/23 12:08 103 H 05/17/23 12:09 90 34 H 94 Non-rebreather 05/17/23 12:01 94 Non-rebreather 05/17/23 12:01 37.5 C 88 38 H 180/102 H 77 L Room Air O2 Flow Rate FiO2 05/17/23 12:58 60 05/17/23 12:20 05/17/23 12:10 05/17/23 12:00 15 05/17/23 11:54 05/17/23 11:53 05/17/23 12:08 05/17/23 12:09 15 05/17/23 12:01 15 05/17/23 12:01 Laboratory Results Short CBC 05/17/23 Range/Units 12:27 WBC 10.57 (4.8-10.8) K/ul Hgb 10.7 L (14.0-18.0) g/dl Hct 33.3 L (42.0-52.0) % Plt Count 194 (130-400) K/uL BMP 05/17/23 12:27 Sodium 139 Potassium 3.6 Chloride 97 L Carbon Dioxide 33 H BUN 24 H Creatinine 3.53 H Glucose 59 L Calcium 8.5 L Liver Function 05/17/23 Range/Units 12:27 Total Bilirubin 1.0 (0.2-1.0) mg/dl Direct Bilirubin 0.1 (0-0.2) mg/dl AST 31 (13-39) U/L ALT 29 (7-52) U/L Alkaline Phosphatase 72 (34-104) U/L Albumin 3.6 (3.4-5.0) gm/dl Diagnostic Findings Chest X-Ray 05/17/23 11:54 XR chest 1V portable CLINICAL HISTORY: Sepsis. COMPARISON STUDY: Chest radiograph April 20, 2023. Chest CT February 01, 2023. FINDINGS: There is no pneumothorax. A moderate to large left pleural effusion has significantly increased in size since prior exam. There is a small right pleural effusion, unchanged. Bibasilar opacities are again noted. There is cardiomegaly with interstitial thickening, increased since prior exam. IMPRESSION: 1. Significant increase in size of a moderate to large left pleural effusion. No significant change in a small right pleural effusion. Increase in bibasilar opacities, greater on the left. 2. Cardiomegaly with interstitial pulmonary edema. ACT 112: Negative or not required by law. Electronically signed by: Sivakumar Renee M.D. 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 Patient was not forthcoming with history and only answered yes and no to questions He is oriented to person, place and time He had his eyes closed half the time Denied any depression Acknowledged cough, shortness of breath. Denied chest pain. On exam, General: In no acute distress Eyes: PERRL ENMT: BIPAP mask in place Respiratory: On BIPAP, in no distress, diminished breath sounds lung bases Cardiovascular: Irregular, S1 S2 Gastrointestinal (Abdomen): Abdomen is not distended, soft, non-tender to palpation, no guarding, no palpable hepatosplenomegaly, normal bowel sounds Musculoskeletal: No pedal edema Neurologic: Limited exam due to poor participation. Psychiatric: Flat affect Acute respiratory failure with hypoxia Bilateral pleural effusion ESRD on HD Continue BIPAP PUlm consult for thoracocentesis Nephro consult for HD Attempts at C discussion were futile as patient was very reticent Consider Palliative care consult with patient and family
[2023-05-17] MEDS: HEPARIN SOD 5,000 UNIT/0.5 ML VIAL SQ SCH (20:13)
[2023-05-18 07:13] LABS: Hematocrit (blood only) 28.9 % (42.0-52.0); Hemoglobin 9.1 g/dl (14.0-18.0); Mean Corpuscular Hgb Conc 31.5 g/dL (32.0-36.0); Mean Corpuscular Volume 95.4 fL (80.0-100.0); Mean Platelet Volume 10.7 fL (9.4-12.4); Platelet Count 163 K/uL (130-400); RDW Coefficient of Variation 16.3 % (11.5-14.5); RDW Standard Deviation 57.1 fL (36.4-46.3); Red Blood Count 3.03 M/uL (4.70-6.10); White Blood Count 8.32 K/ul (4.8-10.8)
[2023-05-18 08:12] LABS: Alanine Aminotransferase 25 U/L (7-52); Albumin Globulin Ratio 1.5 (0.9-2); Albumin Level 2.9 gm/dl (3.4-5.0); Alkaline Phosphatase 58 U/L (34-104); Anion Gap 8 (3-11); Aspartate Aminotransferase 24 U/L (13-39); Bilirubin,Total 0.7 mg/dl (0.2-1.0); Blood Urea Nitrogen 37 mg/dl (6-23); Calcium 8.4 mg/dl (8.6-10.3); Carbon Dioxide 35 mmol/L (21-32); Chloride 99 mmol/L (98-107); Est GFR (Non-African American) 10.3 ml/min; Globulin 1.9 gm/dl (2.5-4.0); Glucose 74 mg/dl (70-99(Fasting)); Magnesium 1.9 mg/dl (1.7-2.4); Phosphorus 4.2 mg/dl (2.5-4.9); Potassium 3.8 mmol/L (3.5-5.1); Sodium 142 mmol/L (136-145); Total Protein 4.8 gm/dl (6.0-8.3)
[2023-05-18] MEDS: HEPARIN SOD 5,000 UNIT/0.5 ML VIAL SQ SCH ×2 (08:31→21:51)
[2023-05-18] MEDS: allopurinoL 100 MG TAB PO SCH (08:39)
[2023-05-18] MEDS: ASPIRIN 81 MG ECTAB PO SCH (08:39)
--- NOTE | 2023-05-18 10:41 | XRay Report ---
XR chest 1V not portable CLINICAL HISTORY: POST THORA COMPARISON STUDY: Chest radiograph May 17, 2023. FINDINGS: There is no pneumothorax status post left thoracentesis. The left pleural effusion has sign ificantly decreased in size. There are small bilateral pleural effusions with bibasilar opacities. Ca rdiomegaly is noted. Pulmonary edema has improved. IMPRESSION: 1. No pneumothorax following left thoracentesis. Significant decrease in size of the left pleural eff usion. 2. Interval improvement in pulmonary edema. ACT 112: Negative or not required by law. Electronically signed by: Sivakumar Renee M.D. 05/18/2023 10:39 AM
--- NOTE | 2023-05-18 12:16 | Ultrasound Report ---
Ultrasound guided thoracentesis. Clinical indication: Left-sided pleural effusion. Procedure: Procedure and risks were explained. Informed consent was obtained. A final timeout was com pleted. Sonographic examination revealed a large left pleural effusion. The skin of the left human resources professional ior chest was prepped and draped in sterile fashion. 1% buffered lidocaine was utilized for skin anes thesia. Utilizing ultrasound guidance, a 5 [place] safety centesis catheter was introduced into the pl eural space and 1000 ml of juan carlos-colored fluid was drained. Ultrasound images were obtained. The pro cedure was stopped secondary to complaints of pleuritic chest pain. The catheter was removed. Post pr ocedure scanning revealed a decrease in the size of the pleural effusion. Postprocedural chest x-ray showed no pneumothorax. Complication: No immediate. Foreclosure Clerk: Joseph Oakes PA-C. IMPRESSION: Ultrasound guided thoracentesis as described above. Performed, dictated, and signed by Joseph Oakes PA-C; to be co-signed by Dr. Sivakumar Renee. Electronically signed by: Sivakumar Renee M.D. 05/18/2023 12:26 PM
--- NOTE | 2023-05-18 13:45 | Nephrology Consultation ---
Date of Consultation May 18, 2023 Assessment & Plan (1) Acute hypoxemic respiratory failure: anuric patient still needs 4L 02NC after 1L tap today recommended dialysis again today but pt declines; plan HD tomorrow (2) ESRD on hemodialysis: ESRD MWF > needs additional dialysis in my clinical opinion but often refuses it as he did today stating it exhausts him too greatly >routine HD tomorrow >HTN / elevated BP b/c of need for HD > will also continue his OP amlodipine hs, losartan, metoprolol >will continue his severalmer (1600 ac), cinacalcet, renavite -started 1.2 L FR Care coordinated w/ Dr Schaefer (3) Recurrent pleural effusion: needs plan for serial thoracentesis per last pulm note > would arrange [facility] (4) HFrEF (heart failure with reduced ejection fraction): has cancelled 2 visits now OP w/ [facility] >> will educate and d/w him; pls reschedule before d/c History of Present Illness Reason for Consultation: ESRD on dialysis Requesting Physician: JAIMEE Dwyer and admitting hospitalist [facility] [place] Attending Physician: Jeff Schaefer MD History of Present Illness 67 y/o M whom I'm asked to see for dialysis needs was sent from dialysis at my direction w/ acute hypoxemic respiratory failure despite aggressive UF at dialysis yesterday. 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 Also hx of Staph aureus PD peritonitis 10/2022 w/ catheter malfunction; w/ severe adhesions at PD cath removal. In the wake of his peritonitis, EF on TTE dropped to 65%>45%; cardiology did follow him as IP and OP stress test versus cardiac cath was considered. w/ frequent hospital stays, pt has not seen cardiology as OP since spring. follows w/ [facility] pulmonary, including for chronic /intermittent thoracentesis. HE came to HD yesterday in a w/c (normally ambulatory w/o asst) w/ sats in 70s on RA. He needed 5-6 L to maintain sats low 90s even after full dialysis. He needed 5.9 L fluid removal; not sure how much was ultimately removed (we were going for 3.5L which is usually his upper limit). Outpatient thoracentesis was contemplated but even at the end of tx he was needing 5 L 02 w/ sats in high 80s so he was sent to ER. He underwent L thoracentesis one L today. He feels improved. improved generalized weakness, fatigue, dyspnea. no cough. pt is anuric; no edema, no chest pain . no n/v/d/min burn. Allergies Allergy/AdvReac Type Severity Reaction Status Date / Time No Known Allergies Allergy Verified 03/26/23 12:21 Home Medications Medication Instructions Recorded Confirmed Type cinacalcet 30 mg tablet (Sensipar) 0 mg PO DAILY 08/19/22 05/17/23 History ferric citrate 210 mg iron tablet 210 mg PO TIDM 02/01/23 05/17/23 History (Auryxia) gabapentin 100 mg capsule 100 mg PO DIRECTED 03/26/23 05/17/23 History allopurinol 100 mg tablet 50 mg PO DAILY #30 tabs 03/28/23 05/17/23 Rx amlodipine 5 mg tablet 10 mg PO DAILY #30 tabs 03/28/23 05/17/23 Rx aspirin 81 mg tablet,delayed 81 mg PO QAM #30 tabs 03/28/23 05/17/23 Rx release atorvastatin 40 mg tablet 40 mg PO HS #30 tabs 03/28/23 05/17/23 Rx hydralazine 100 mg tablet 100 mg PO TID #90 tabs 03/28/23 05/17/23 Rx isosorbide dinitrate 20 mg tablet 20 mg PO TID@0700,1200,1700 #90 03/28/23 05/17/23 Rx tabs losartan 50 mg tablet (Cozaar) 50 mg PO AMHS #30 tabs 03/28/23 05/17/23 Rx metoprolol succinate 50 mg 100 mg PO QDD #60 tabs 03/28/23 05/17/23 Rx tablet,extended release 24 hr sevelamer carbonate 800 mg tablet 800 mg PO TIDM #90 tabs 03/28/23 05/17/23 Rx ergocalciferol (vitamin D2) 1,250 1,250 mcg PO WK 04/15/23 05/17/23 History mcg (50,000 unit) capsule (Vitamin D2) patiromer calcium sorbitex 8.4 8.4 g PO QAM 04/15/23 05/17/23 History gram oral powder packet (Veltassa) doxycycline hyclate 100 mg capsule 100 mg PO BID #3 caps 04/21/23 05/17/23 Rx Patient History Medical History Acute hypoxemic respiratory failure Acute respiratory failure with hypoxia Acute upper gastrointestinal bleeding Anemia Anemia of chronic disease AV fistula Benign prostatic hyperplasia with urinary obstruction Chest pain ESRD (end stage renal disease) on dialysis HD patient follows w/ Dr Munson [facility] 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 Fluid overload Heart failure with acute decompensation, type unknown Hyperkalemia Hypertension Hypervolemia Hypoxia Kidney transplant candidate reason for colonoscopy to get on list Nephrolithiasis Pleural effusion chronic, recurrent Recurrent pleural effusion Restless leg syndrome SOB (shortness of breath) Symptomatic anemia Surgical History H/O inguinal hernia repair History of colonoscopy History of cystoscopy History of thoracentesis History of tooth extraction Status post creation of arteriovenous fistula left arm Family History Other No family history of adverse response to anesthesia No significant family history Social History Smoking Status: Former smoker Tobacco Type: Cigarettes Second Hand Exposure: No; Do You Dip or Chew Tobacco: No; Hx Alcohol Use: No Hx Substance Use: No Preferred Language: Zambian Communication Ability: Effective Communication Ability Comment: pt using cell phone to translate Communication Tools: IPad and Physical Gestures Station Helper Required: Yes Beliefs That Will Affect Care: None marital status: Current Living Situation: Family current occupational status: employed Feels Safe at Home: Yes Safety Concerns: Feels Safe At This Time Assistive Devices: None Review of Systems Review of Systems: All systems reviewed & are unremarkable except as noted in HPI & below Physical Exam Constitutional: well developed (sitting on side of bed on 4LNC when I saw him at about 11 AM), well nourished, + frail appearing and cooperative; no acute distress Eyes: EOM intact bilaterally ENMT: Ears: no external ear abnormality Nose: no external nose abnormality Mouth: + dry oral mucous membranes Neck: no nuchal rigidity Respiratory: normal respiratory effort Auscultation: + breath sounds absent (R base), + diminished lung sounds and + crackles (L base) Cardiovascular: Rate/Rhythm: regular rate and regular rhythm Extremities: + AV fistula; no edema Gastrointestinal (Abdomen): Inspection/Auscultation: normal bowel sounds Percussion/Palpation: abdomen soft; abdomen nontender Musculoskeletal: Extremities: strength 5/5 throughout Skin: no rashes, warm and dry Neurologic: sim, fluent speech, no tremor Psychiatric: Orientation: alert and oriented x 3 Results & Data Vital Signs (Past 12 Hours) Vital Signs Temp Pulse Pulse Resp BP Pulse Ox O2 Del Method 05/18/23 13:02 36.8 C 82 20 125/76 95 Nasal Cannula 05/18/23 12:00 37.0 C 70 20 164/91 H 97 Nasal Cannula 05/18/23 11:19 36.8 C 69 20 161/71 H 98 Nasal Cannula 05/18/23 08:49 Nasal Cannula 05/18/23 08:16 37.2 C 69 20 167/83 H 98 Nasal Cannula 05/18/23 07:20 63 05/18/23 04:50 36.6 C 64 16 161/86 H 97 Nasal Cannula O2 Flow Rate 05/18/23 13:02 4 05/18/23 12:00 4 05/18/23 11:19 4 05/18/23 08:49 4 05/18/23 08:16 4 05/18/23 07:20 05/18/23 04:50 4.0 Laboratory Results 05/18/23 06:33 05/18/23 06:33 Diagnostic Findings cxr admission 1. Significant increase in size of a moderate to large left pleural effusion. No significant change in a small right pleural effusion. Increase in bibasilar opacities, greater on the left. 2. Cardiomegaly with interstitial pulmonary edema.
--- NOTE | 2023-05-18 15:35 | Hospitalist Progress Note ---
Date of Service May 18, 2023 Assessment & Plan (1) Acute hypoxemic respiratory failure: (2) Recurrent pleural effusion: (3) HFrEF (heart failure with reduced ejection fraction): (4) Hypertensive urgency: (5) ESRD (end stage renal disease) on dialysis: (6) Anemia of chronic disease: (7) Goals of care, counseling/discussion: Plan This is a 67-year-old Polish-speaking male with PMHx of HTN, HFrEF 40-45%, hypoxemia respiratory failure with recurrent b/l pleural effusions secondary to volume overload, paroxysmal a flutter, aortic root dilatation,ESRD on HD MWF, anemia of chronic disease, protein calorie malnutrition who presents to the hospital with worsening SOB during hemodialysis at [facility]. Acute hypoxemia Respiratory Failure: Recurrent pleural effusions: Status post paracentesis on 05/18 History of pleural effusion requiring repeated paracentesis He was sent to ED from dialysis for shortness of breath. CXR on admission personally reviewed: Significant increase in size of a moderate to large left pleural effusion. No significant change in a small right pleural effusion. Increase in bibasilar opacities, greater on the left. Cardiomegaly with interstitial pulmonary edema. Repeat chest x-ray after thoracentesis reviewed again; decreased left-sided pleural effusion. Discussed with radiology; patient does not have any order for thoracentesis every 4 weeks. Will reach out to pulmonology. Continue to monitor oxygenation; wean as tolerated. HFrEF: Acute uncontrolled BNP greater than 4700. Most recent ECHO: 04/18/2023 revealed an LVEF of 45 to 50%. Severe concentric LVH with mild global hypokinesis HTN: Chronic stable Takes Amlodipine, Hydralazine, Isosorbide dinitrate, Losartan, and Metoprolol; continue ESRD: Nephro consult Last HD session on 05/17, underwent full session x 4 hr . normal MWF schedule. Access HD: Left AVF Resume home medications/supplements per nephrology Anuric Dialysis Diet w Anemia of Chronic Disease: Hgb 10.7; baseline around 11 No overt signs of bleeding Goals of care conversation: complex end-stage patient with kidney, lung, and heart failure. Overall, patient has continued to have recurrent bilateral pleural effusions secondary to volume overload with end-stage HFrEF/ESRD. Pt is followed closely by pulmonary medicine with last visit 04/19 indicating numerous thoracentesis in this patient's past with no indication for pleurodesis. Each time thoracentesis is discussed patient appears to be reluctant. Patient has made significant progression from peritoneal dialysis to hemodialysis over the past year; historically patient has had flat affect and is reluctant to having any goals of care conversation. Palliative care on board; appreciate help for assisting on goals of care discussion. Disposition: PCP: Dr. Car Code Status: Full Code VTE Prophylaxis: Heparin SQ Time spent evaluating patient, direct bedside care, chart review, placing orders, interpretation of diagnostic studies, discussion with consultants, patient, and family members, as well as other required patient management activities is 60 minutes Please note the above document was generated using voice recognition software. It may contain grammatical, syntax or spelling errors. Any formal questions or concerns about the content, text or information contained within the body of this dictation should be directly addressed to the provider for clarification Admission and Anticipated Discharge Date Admission Date: May 17, 2023 Subjective Patient seen after thoracentesis. He reports that he is feeling much better with the breathing. Review of Systems Review of Systems: All systems reviewed & are unremarkable except as noted in Subjective Physical Exam Physical Exam: Constitutional: WD/WN, vitals as above, NAD, sitting up in bed, pleasant, conversing easily Respiratory: Bilateral decreased breath sound at bases. Cardiovascular: RRR, no murmur, no edema Vessels: no JVD or carotid bruit Chest: normal inspection of chest Abdomen: normal bowel sounds, soft, nontender, no hepatosplenomegaly Musculoskeletal: no cyanosis or clubbing, extremities motor strength 5/5 Skin: no rashes, warm and dry normal turgor Neurologic: PERRL, EOMI, accommodation nl, no face palsy, no dysarthria CN's II-XI intact bilaterally and moves all extremities Psychiatric: A+Ox3, euthymic affect Results & Data Results & Data Vital Signs (Past 12 Hours) Vital Signs Temp Pulse Pulse Resp BP Pulse Ox O2 Del Method 05/18/23 14:01 74 18 150/90 H 95 Nasal Cannula 05/18/23 13:02 36.8 C 82 20 125/76 95 Nasal Cannula 05/18/23 12:00 37.0 C 70 20 164/91 H 97 Nasal Cannula 05/18/23 11:19 36.8 C 69 20 161/71 H 98 Nasal Cannula 05/18/23 08:49 Nasal Cannula 05/18/23 08:16 37.2 C 69 20 167/83 H 98 Nasal Cannula 05/18/23 07:20 63 05/18/23 04:50 36.6 C 64 16 161/86 H 97 Nasal Cannula O2 Flow Rate 05/18/23 14:01 3 05/18/23 13:02 4 05/18/23 12:00 4 05/18/23 11:19 4 05/18/23 08:49 4 05/18/23 08:16 4 05/18/23 07:20 05/18/23 04:50 4.0 Laboratory Results Laboratory Results WBC 8.32 K/ul (4.8-10.8) 05/18/23 06:33 RBC 3.03 M/uL (4.70-6.10) L 05/18/23 06:33 Hgb 9.1 g/dl (14.0-18.0) L 05/18/23 06:33 Hct 28.9 % (42.0-52.0) L 05/18/23 06:33 MCV 95.4 fL (80.0-100.0) 05/18/23 06:33 MCH 30.0 pg (25.0-34.0) 05/18/23 06:33 MCHC 31.5 g/dL (32.0-36.0) L 05/18/23 06:33 RDW Std Deviation 57.1 fL (36.4-46.3) H 05/18/23 06:33 RDW Coeff of Diamond 16.3 % (11.5-14.5) H 05/18/23 06:33 Plt Count 163 K/uL (130-400) 05/18/23 06:33 MPV 10.7 fL (9.4-12.4) 05/18/23 06:33 Immature Gran % (Auto) 1.1 % 05/17/23 12:27 Neut % (Auto) 86.0 % 05/17/23 12:27 Lymph % (Auto) 6.6 % 05/17/23 12:27 [place] % (Auto) 4.1 % 05/17/23 12:27 Eos % (Auto) 1.9 % 05/17/23 12:27 Baso % (Auto) 0.3 % 05/17/23 12: Neut # (Auto) 9.09 K/uL (1.40-6.50) H 05/17/23 12: Lymph # (Auto) 0.70 K/uL (1.20-3.40) L 05/17/23 12: [place] # (Auto) 0.43 K/uL (0.11-0.59) 05/17/23 12: Eos # (Auto) 0.20 K/uL (0.00-0.50) 05/17/23 12: Baso # (Auto) 0.03 K/uL (0.00-0.20) 05/17/23 12: Immature Gran # (Auto) 0.12 K/uL (0.01-0.20) 05/17/23 12: PT 10.3 Seconds (9.0-12.0) 05/17/23 12: INR 0.9 (0.9-1.1) 05/17/23 12: APTT 21.9 Seconds (21.0-31.0) 05/17/23 12: PTT Ratio 0.8 05/17/23 12: VBG pH 7.47 (7.36-7.41) H 05/17/23 12: VBG pCO2 52 mmHg (38-50) H 05/17/23 12: VBG pO2 41 mmHg 05/17/23 12: VBG HCO3 38 mmol/L 05/17/23 12: VBG O2 Saturation 67.3 % 05/17/23 12: VBG Base Excess 12.4 mEq/L 05/17/23 12: Sodium 142 mmol/L (136-145) 05/18/23 06:33 Potassium 3.8 mmol/L (3.5-5.1) 05/18/23 06:33 Chloride 99 mmol/L (98-107) 05/18/23 06:33 Carbon Dioxide 35 mmol/L (21-32) H 05/18/23 06:33 Anion Gap 8 (3-11) 05/18/23 06:33 BUN 37 mg/dl (6-23) H 05/18/23 06:33 Creatinine 5.27 mg/dl (0.6-1.4) H* D 05/18/23 06:33 Est Cr Clr Drug Dosing Not Reportable 05/18/23 06:33 Est GFR ( Amer) 12.0 ml/min 05/18/23 06:33 Est GFR (Non-Af Amer) 10.3 ml/min 05/18/23 06:33 BUN/Creatinine Ratio 7.0 (10-20) L 05/18/23 06:33 Glucose 74 mg/dl (70-99(Fasting)) 05/18/23 06:33 Lactate 1.0 mmol/L (0.4-2.0) 05/17/23 14:41 Calcium 8.4 mg/dl (8.6-10.3) L 05/18/23 06:33 Phosphorus 4.2 mg/dl (2.5-4.9) 05/18/23 06:33 Magnesium 1.9 mg/dl (1.7-2.4) 05/18/23 06:33 Total Bilirubin 0.7 mg/dl (0.2-1.0) 05/18/23 06:33 Direct Bilirubin 0.1 mg/dl (0-0.2) 05/17/23 12:27 AST 24 U/L (13-39) 05/18/23 06:33 ALT 25 U/L (7-52) 05/18/23 06:33 Alkaline Phosphatase 58 U/L (34-104) 05/18/23 06:33 Troponin I High Sens 529.1 pg/ml (0-20) H* 05/17/23 19:24 B-Natriuretic Peptide > 4700 pg/ml (0-100) H 05/17/23 12:27 Total Protein 4.8 gm/dl (6.0-8.3) L D 05/18/23 06:33 Albumin 2.9 gm/dl (3.4-5.0) L 05/18/23 06:33 Globulin 1.9 gm/dl (2.5-4.0) L 05/18/23 06:33 Albumin/Globulin Ratio 1.5 (0.9-2) 05/18/23 06:33 Procalcitonin 0.37 ng/ml (0-0.5) 05/17/23 12:27 Nasal Screen MRSA (PCR) Negative (Negative) 05/18/23 07:14 SARS-CoV-2, RNA, NAAT NEGATIVE (NEGATIVE) 05/17/23 Unknown Impressions Thoracentesis/Paracentesis US 05/18/23 10:00 Ultrasound guided thoracentesis. Clinical indication: Left-sided pleural effusion. Procedure: Procedure and risks were explained. Informed consent was obtained. A final timeout was completed. Sonographic examination revealed a large left pleural effusion. The skin of the left posterior chest was prepped and draped in sterile fashion. 1% buffered lidocaine was utilized for skin anesthesia. Utilizing ultrasound guidance, a 5 Slovak safety centesis catheter was introduced into the pleural space and 1000 ml of juan carlos-colored fluid was drained. Ultrasound images were obtained. The procedure was stopped secondary to complaints of pleuritic chest pain. The catheter was removed. Post procedure scanning revealed a decrease in the size of the pleural effusion. Postprocedural chest x-ray showed no pneumothorax. Complication: No immediate. Polishing Machine Tender: Joseph Oakes PA-C. IMPRESSION: Ultrasound guided thoracentesis as described above. Performed, dictated, and signed by Joseph Oakes PA-C; to be co-signed by Dr. Sivakumar Renee. Electronically signed by: Sivakumar Renee M.D. 05/18/2023 12:26 PM Chest X-Ray 05/18/23 10:15 XR chest 1V not portable CLINICAL HISTORY: POST THORA COMPARISON STUDY: Chest radiograph May 17, 2023. FINDINGS: There is no pneumothorax status post left thoracentesis. The left pleural effusion has significantly decreased in size. There are small bilateral pleural effusions with bibasilar opacities. Cardiomegaly is noted. Pulmonary edema has improved. IMPRESSION: 1. No pneumothorax following left thoracentesis. Significant decrease in size of the left pleural effusion. 2. Interval improvement in pulmonary edema. ACT 112: Negative or not required by law. Electronically signed by: Sivakumar Renee M.D. 05/18/2023 10:39 AM
[2023-05-18] MEDS: METOPROLOL SUCC 50MG EXT REL TAB PO SCH (19:25)
[2023-05-18] MEDS: NEPHROCAPS PO SCH (19:25)
[2023-05-18] MEDS: LOSARTAN POTASSIUM 50 MG TAB PO SCH (21:51)
[2023-05-18] MEDS: amLODIPine BESYLATE 5 MG TAB PO SCH (21:51)
[2023-05-19] MEDS ORDERED: EPOETIN ALFA 20,000 UNITS/ML VIAL IV ONE (05:48)
[2023-05-19] MEDS ORDERED: HEPARIN SOD (PORCINE) 1000 UNIT/ML IV ONE (05:48)
[2023-05-19] MEDS ORDERED: SODIUM CHLORIDE 0.9% 1,000 ML IV PRN (05:48)
[2023-05-19 08:43] LABS: Anion Gap 10 (3-11); BUN Creatinine Ratio 6.6 (10-20); Blood Urea Nitrogen 49 mg/dl (6-23); Calcium 9.1 mg/dl (8.6-10.3); Carbon Dioxide 34 mmol/L (21-32); Chloride 98 mmol/L (98-107); Est GFR (African American) 7.9 ml/min; Est GFR (Non-African American) 6.8 ml/min; Glucose 75 mg/dl (70-99(Fasting)); Potassium 4.3 mmol/L (3.5-5.1); Sodium 142 mmol/L (136-145)
[2023-05-19] MEDS: allopurinoL 100 MG TAB PO SCH (08:49)
[2023-05-19] MEDS: LOSARTAN POTASSIUM 50 MG TAB PO SCH ×2 (08:49→21:20)
[2023-05-19] MEDS: ASPIRIN 81 MG ECTAB PO SCH (08:49)
[2023-05-19] MEDS: SEVELAMER HCL 800 MG TABLET PO SCH ×3 (08:49→17:56)
[2023-05-19] MEDS: NEPHROCAPS PO SCH (08:50)
[2023-05-19] MEDS: HEPARIN SOD 5,000 UNIT/0.5 ML VIAL SQ SCH ×2 (08:50→21:20)
[2023-05-19] MEDS: METOPROLOL SUCC 50MG EXT REL TAB PO SCH (08:50)
--- NOTE | 2023-05-19 11:20 | Palliative Care Consultation ---
Date of Consultation May 19, 2023 Assessment & Plan (1) Palliative care encounter: At time of visit, Mr. De La Rosa is in dialysis. I spoke with his daughter, Sandy, who asked me not to speak with him about goals of care because she is afraid that it will make him worry. I reviewed goal of palliative care to understand what is important to him, how he is coping with his illness and how we can best help him moving forward. She tells me that he does not want to and has repeatedly said that he wants whatever care is necessary to prolong his life. She says that he does not like to discuss this and only does so when filling out forms. We talked about what may be driving his fear of dying and she tells me that he says that he is too young to . She notes that he is not able to do many of the things that he could do previously but still feels that life is worth living for him. We discussed whether there were limits to what he would be willing to go through for treatment, such as prolonged intubation and she told me that he would want whatever treatment is necessary. She is agreeable to possible further discussions if his condition changes but at this time desires full code, full treatment. History of Present Illness Reason for Consultation: goals of care Requesting Physician: SREEDHAR Bingham Attending Physician: Jeff Schaefer MD History of Present Illness 67 yo gentleman with ESRD on hemodialysis. He has history of BPH, heart failure, paroxysmal atrial flutter, aortic root dilatation, anemia of chronic disease and protein calorie malnutrition. He is hospitalized with acute hypoxemic respiratory failure and recurrent pleural effusion. He is followed by pulmonology for periodic thoracentesis . We have been consulted to assist with goals of care. Allergies Allergy/AdvReac Type Severity Reaction Status Date / Time No Known Allergies Allergy Verified 03/26/23 12:21 Home Medications Medication Instructions Recorded Confirmed Type cinacalcet 30 mg tablet (Sensipar) 0 mg PO DAILY 08/19/22 05/17/23 History ferric citrate 210 mg iron tablet 210 mg PO TIDM 02/01/23 05/17/23 History (Auryxia) gabapentin 100 mg capsule 100 mg PO DIRECTED 03/26/23 05/17/23 History allopurinol 100 mg tablet 50 mg PO DAILY #30 tabs 03/28/23 05/17/23 Rx amlodipine 5 mg tablet 10 mg PO DAILY #30 tabs 03/28/23 05/17/23 Rx aspirin 81 mg tablet,delayed 81 mg PO QAM #30 tabs 03/28/23 05/17/23 Rx release atorvastatin 40 mg tablet 40 mg PO HS #30 tabs 03/28/23 05/17/23 Rx hydralazine 100 mg tablet 100 mg PO TID #90 tabs 03/28/23 05/17/23 Rx isosorbide dinitrate 20 mg tablet 20 mg PO TID@0700,1200,1700 #90 03/28/23 05/17/23 Rx tabs losartan 50 mg tablet (Cozaar) 50 mg PO AMHS #30 tabs 03/28/23 05/17/23 Rx metoprolol succinate 50 mg 100 mg PO QDD #60 tabs 03/28/23 05/17/23 Rx tablet,extended release 24 hr sevelamer carbonate 800 mg tablet 800 mg PO TIDM #90 tabs 03/28/23 05/17/23 Rx ergocalciferol (vitamin D2) 1,250 1,250 mcg PO WK 04/15/23 05/17/23 History mcg (50,000 unit) capsule (Vitamin D2) patiromer calcium sorbitex 8.4 8.4 g PO QAM 04/15/23 05/17/23 History gram oral powder packet (Veltassa) doxycycline hyclate 100 mg capsule 100 mg PO BID #3 caps 04/21/23 05/17/23 Rx Patient History Medical History Acute hypoxemic respiratory failure Acute respiratory failure with hypoxia Acute upper gastrointestinal bleeding Anemia Anemia of chronic disease AV fistula Benign prostatic hyperplasia with urinary obstruction Chest pain ESRD (end stage renal disease) on dialysis HD patient follows w/ Dr Munson [facility] 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 Fluid overload Heart failure with acute decompensation, type unknown Hyperkalemia Hypertension Hypervolemia Hypoxia Kidney transplant candidate reason for colonoscopy to get on list Nephrolithiasis Pleural effusion chronic, recurrent Recurrent pleural effusion Restless leg syndrome SOB (shortness of breath) Symptomatic anemia Surgical History H/O inguinal hernia repair History of colonoscopy History of cystoscopy History of thoracentesis History of tooth extraction Status post creation of arteriovenous fistula left arm Family History Other No family history of adverse response to anesthesia No significant family history Social History Smoking Status: Former smoker Tobacco Type: Cigarettes Second Hand Exposure: No; Do You Dip or Chew Tobacco: No; Hx Alcohol Use: No Hx Substance Use: No Preferred Language: Zimbabwean Communication Ability: Effective Communication Ability Comment: pt using cell phone to translate Communication Tools: Other Keeler Polygraph Operator Required: Yes Beliefs That Will Affect Care: None marital status: Current Living Situation: Family current occupational status: employed Feels Safe at Home: Yes Safety Concerns: Feels Safe At This Time Assistive Devices: None Results & Data Vital Signs (Past 12 Hours) Vital Signs Temp Pulse Pulse Pulse Resp BP BP 05/19/23 10:30 66 154/81 H 05/19/23 10:45 05/19/23 10:00 59 L 154/64 H 05/19/23 09:30 50 L 139/64 05/19/23 09:00 97.9 F 73 05/19/23 07:59 97.9 F 74 18 175/83 H 05/19/23 08:12 69 05/19/23 03:14 98.1 F 73 20 05/19/23 00:00 BP Pulse Ox Pulse Ox O2 Del Method O2 Del Method O2 Flow Rate O2 Flow Rate 05/19/23 10:30 05/19/23 10:45 Nasal Cannula 3 05/19/23 10:00 05/19/23 09:30 05/19/23 09:00 05/19/23 07:59 96 Nasal Cannula 3 05/19/23 08:12 05/19/23 03:14 165/91 H 97 Nasal Cannula 3 05/19/23 00:00 95 Nasal Cannula 3 PG Care Time/CCT Total # of Minutes Spent Total Time Spent with Patient: Total time spent is greater than 50% in coordination of care (as documented) at patient's floor/unit and/or counseling patient: Coding Level of Care Code 97260 Inpt Consult Level 1 Diagnoses Palliative care encounter Z51.5
[2023-05-19] MEDS: HEPARIN SOD (PORCINE) 1000 UNIT/ML IV SCH ×2 (12:30→12:31)
--- NOTE | 2023-05-19 14:46 | Hospitalist Progress Note ---
Date of Service May 19, 2023 Assessment & Plan (1) Acute hypoxemic respiratory failure: (2) Recurrent pleural effusion: (3) HFrEF (heart failure with reduced ejection fraction): (4) Hypertensive urgency: (5) ESRD (end stage renal disease) on dialysis: (6) Anemia of chronic disease: (7) Goals of care, counseling/discussion: Plan This is a 67-year-old Monegasque-speaking male with PMHx of HTN, HFrEF 40-45%, hypoxemia respiratory failure with recurrent b/l pleural effusions secondary to volume overload, paroxysmal a flutter, aortic root dilatation,ESRD on HD MWF, anemia of chronic disease, protein calorie malnutrition who presents to the hospital with worsening SOB during hemodialysis at [facility]. Acute hypoxemia Respiratory Failure: Recurrent pleural effusions: Status post paracentesis on 05/18 History of pleural effusion requiring repeated paracentesis He was sent to ED from dialysis for shortness of breath. CXR on admission personally reviewed: Significant increase in size of a moderate to large left pleural effusion. No significant change in a small right pleural effusion. Increase in bibasilar opacities, greater on the left. Cardiomegaly with interstitial pulmonary edema. Repeat chest x-ray after thoracentesis reviewed again; decreased left-sided pleural effusion. Discussed with radiology; patient does not have any order for thoracentesis every 4 weeks. Discussed with pulmonology; patient to follow-up with pulmonology as outpatient to have acute scheduled. Patient undergoing dialysis today. HFrEF: Acute uncontrolled BNP greater than 4700. Most recent ECHO: 04/18/2023 revealed an LVEF of 45 to 50%. Severe concentric LVH with mild global hypokinesis HTN: Chronic stable Takes Amlodipine, Hydralazine, Isosorbide dinitrate, Losartan, and Metoprolol; continue ESRD: Nephro consult Last HD session on 05/17, underwent full session x 4 hr . normal MWF schedule. Access HD: Left AVF Resume home medications/supplements per nephrology Extra session of dialysis tomorrow AM. Anemia of Chronic Disease: Hgb 10.7; baseline around 11 No overt signs of bleeding Goals of care conversation: complex end-stage patient with kidney, lung, and heart failure. Overall, patient has continued to have recurrent bilateral pleural effusions secondary to volume overload with end-stage HFrEF/ESRD. Pt is followed closely by pulmonary medicine with last visit 04/19 indicating numerous thoracentesis in this patient's past with no indication for pleurodesis. Each time thoracentesis is discussed patient appears to be reluctant. Patient has made significant progression from peritoneal dialysis to hemodialysis over the past year; historically patient has had flat affect and is reluctant to having any goals of care conversation. Palliative care on board; patient remains full code. Disposition: PCP: Dr. Car Code Status: Full Code VTE Prophylaxis: Heparin SQ Time spent evaluating patient, direct bedside care, chart review, placing orders, interpretation of diagnostic studies, discussion with consultants, patient, and family members, as well as other required patient management activities is 60 minutes Please note the above document was generated using voice recognition software. It may contain grammatical, syntax or spelling errors. Any formal questions or concerns about the content, text or information contained within the body of this dictation should be directly addressed to the provider for clarification Admission and Anticipated Discharge Date Admission Date: May 17, 2023 Subjective Patient seen and examined at bedside. He is undergoing dialysis; not in distress. Requiring 3 L of oxygen. Review of Systems Review of Systems: All systems reviewed & are unremarkable except as noted in Subjective Physical Exam Physical Exam: Constitutional: WD/WN, vitals as above, NAD, sitting up in bed, pleasant, conversing easily Respiratory: Bilateral decreased breath sound at bases. Cardiovascular: RRR, no murmur, no edema Vessels: no JVD or carotid bruit Chest: normal inspection of chest Abdomen: normal bowel sounds, soft, nontender, no hepatosplenomegaly Musculoskeletal: no cyanosis or clubbing, extremities motor strength 5/5 Skin: no rashes, warm and dry normal turgor Neurologic: PERRL, EOMI, accommodation nl, no face palsy, no dysarthria CN's II- XI intact bilaterally and moves all extremities Psychiatric: A+Ox3, euthymic affect Results & Data Results & Data Vital Signs (Past 12 Hours) Vital Signs Temp Pulse Pulse Pulse Pulse Resp BP 05/19/23 13:15 36.6 C 67 05/19/23 13:00 47 L 169/109 H 05/19/23 13:56 36.9 C 74 16 05/19/23 12:30 50 L 141/66 H 05/19/23 12:00 70 157/102 H 05/19/23 11:30 57 L 153/96 H 05/19/23 11:00 56 L 170/87 H 05/19/23 10:30 66 154/81 H 05/19/23 10:45 05/19/23 10:00 59 L 154/64 H 05/19/23 09:30 50 L 139/64 05/19/23 09:00 36.6 C 73 05/19/23 07:59 36.6 C 74 18 05/19/23 08:12 69 05/19/23 03:14 36.7 C 73 20 BP BP Pulse Ox O2 Del Method O2 Flow Rate 05/19/23 13:15 159/85 H 05/19/23 13:00 05/19/23 13:56 152/88 H 98 Nasal Cannula 3 05/19/23 12:30 05/19/23 12:00 05/19/23 11:30 05/19/23 11:00 05/19/23 10:30 05/19/23 10:45 Nasal Cannula 3 05/19/23 10:00 05/19/23 09:30 05/19/23 09:00 05/19/23 07:59 175/83 H 96 Nasal Cannula 3 05/19/23 08:12 05/19/23 03:14 165/91 H 97 Nasal Cannula 3 Laboratory Results Laboratory Results WBC 8.32 K/ul (4.8-10.8) 05/18/23 06:33 RBC 3.03 M/uL (4.70-6.10) L 05/18/23 06:33 Hgb 9.1 g/dl (14.0-18.0) L 05/18/23 06:33 Hct 28.9 % (42.0-52.0) L 05/18/23 06:33 MCV 95.4 fL (80.0-100.0) 05/18/23 06:33 MCH 30.0 pg (25.0-34.0) 05/18/23 06:33 MCHC 31.5 g/dL (32.0-36.0) L 05/18/23 06:33 RDW Std Deviation 57.1 fL (36.4-46.3) H 05/18/23 06:33 RDW Coeff of Diamond 16.3 % (11.5-14.5) H 05/18/23 06:33 Plt Count 163 K/uL (130-400) 05/18/23 06:33 MPV 10.7 fL (9.4-12.4) 05/18/23 06:33 Immature Gran % (Auto) 1.1 % 05/17/23 12: Neut % (Auto) 86.0 % 05/17/23 12: Lymph % (Auto) 6.6 % 05/17/23 12: [place] % (Auto) 4.1 % 05/17/23 12: Eos % (Auto) 1.9 % 05/17/23 12: Baso % (Auto) 0.3 % 05/17/23: Neut # (Auto) 9.09 K/uL (1.40-6.50) H 05/17/23 12: Lymph # (Auto) 0.70 K/uL (1.20-3.40) L 05/17/23 12: [place] # (Auto) 0.43 K/uL (0.11-0.59) 05/17/23 12: Eos # (Auto) 0.20 K/uL (0.00-0.50) 05/17/23 12: Baso # (Auto) 0.03 K/uL (0.00-0.20) 05/17/23 12: Immature Gran # (Auto) 0.12 K/uL (0.01-0.20) 05/17/23 12: PT 10.3 Seconds (9.0-12.0) 05/17/23 12: INR 0.9 (0.9-1.1) 05/17/23 12: APTT 21.9 Seconds (21.0-31.0) 05/17/23 12: PTT Ratio 0.8 05/17/23 12: VBG pH 7.47 (7.36-7.41) H 05/17/23 12: VBG pCO2 52 mmHg (38-50) H 05/17/23 12: VBG pO2 41 mmHg 05/17/23 12: VBG HCO3 38 mmol/L 05/17/23 12: VBG O2 Saturation 67.3 % 05/17/23 12: VBG Base Excess 12.4 mEq/L 05/17/23 12:27 Sodium 142 mmol/L (136-145) 05/19/23 07:52 Potassium 4.3 mmol/L (3.5-5.1) 05/19/23 07:52 Chloride 98 mmol/L (98-107) 05/19/23 07:52 Carbon Dioxide 34 mmol/L (21-32) H 05/19/23 07:52 Anion Gap 10 (3-11) 05/19/23 07:52 BUN 49 mg/dl (6-23) H 05/19/23 07:52 Creatinine 7.42 mg/dl (0.6-1.4) H* D 05/19/23 07:52 Est Cr Clr Drug Dosing Not Reportable 05/19/23 07:52 Est GFR ( Amer) 7.9 ml/min 05/19/23 07:52 Est GFR (Non-Af Amer) 6.8 ml/min 05/19/23 07:52 BUN/Creatinine Ratio 6.6 (10-20) L 05/19/23 07:52 Glucose 75 mg/dl (70-99(Fasting)) 05/19/23 07:52 Lactate 1.0 mmol/L (0.4-2.0) 05/17/23 14:41 Calcium 9.1 mg/dl (8.6-10.3) 05/19/23 07:52 Phosphorus 4.2 mg/dl (2.5-4.9) 05/18/23 06:33 Magnesium 1.9 mg/dl (1.7-2.4) 05/18/23 06:33 Total Bilirubin 0.7 mg/dl (0.2-1.0) 05/18/23 06:33 Direct Bilirubin 0.1 mg/dl (0-0.2) 05/17/23 12:27 AST 24 U/L (13-39) 05/18/23 06:33 ALT 25 U/L (7-52) 05/18/23 06:33 Alkaline Phosphatase 58 U/L (34-104) 05/18/23 06:33 Troponin I High Sens 529.1 pg/ml (0-20) H* 05/17/23 19:24 B-Natriuretic Peptide > 4700 pg/ml (0-100) H 05/17/23 12:27 Total Protein 4.8 gm/dl (6.0-8.3) L D 05/18/23 06:33 Albumin 2.9 gm/dl (3.4-5.0) L 05/18/23 06:33 Globulin 1.9 gm/dl (2.5-4.0) L 05/18/23 06:33 Albumin/Globulin Ratio 1.5 (0.9-2) 05/18/23 06:33 Procalcitonin 0.37 ng/ml (0-0.5) 05/17/23 12:27 Nasal Screen MRSA (PCR) Negative (Negative) 05/18/23 07:14 SARS-CoV-2, RNA, NAAT NEGATIVE (NEGATIVE) 05/17/23 Unknown Impressions Thoracentesis/Paracentesis US 05/18/23 10:00 Ultrasound guided thoracentesis. Clinical indication: Left-sided pleural effusion. Procedure: Procedure and risks were explained. Informed consent was obtained. A final timeout was completed. Sonographic examination revealed a large left pleural effusion. The skin of the left posterior chest was prepped and draped in sterile fashion. 1% buffered lidocaine was utilized for skin anesthesia. Utilizing ultrasound guidance, a 5 Thai safety centesis catheter was introduced into the pleural space and 1000 ml of juan carlos-colored fluid was drained. Ultrasound images were obtained. The procedure was stopped secondary to complaints of pleuritic chest pain. The catheter was removed. Post procedure scanning revealed a decrease in the size of the pleural effusion. Postprocedural chest x-ray showed no pneumothorax. Complication: No immediate. Education Finance Processor: Joseph Oakes PA-C. IMPRESSION: Ultrasound guided thoracentesis as described above. Performed, dictated, and signed by Joseph Oakes PA-C; to be co-signed by Dr. Sivakumar Renee. Electronically signed by: Sivakumar Renee M.D. 05/18/2023 12:26 PM Chest X-Ray 05/18/23 10:15 XR chest 1V not portable CLINICAL HISTORY: POST THORA COMPARISON STUDY: Chest radiograph May 17, 2023. FINDINGS: There is no pneumothorax status post left thoracentesis. The left pleural effusion has significantly decreased in size. There are small bilateral pleural effusions with bibasilar opacities. Cardiomegaly is noted. Pulmonary edema has improved. IMPRESSION: 1. No pneumothorax following left thoracentesis. Significant decrease in size of the left pleural effusion. 2. Interval improvement in pulmonary edema. ACT 112: Negative or not required by law. Electronically signed by: Sivakumar Renee M.D. 05/18/2023 10:39 AM
--- NOTE | 2023-05-19 16:43 | Dialysis Progress Note ---
Date of Service May 19, 2023 Assessment & Plan (1) Recurrent pleural effusion: Plan: s/p 1L thoracentesis this admission >recommend SCHEDULED serial thoracenteses OP arranged prior to d/c per pulm and IR (2) Acute hypoxemic respiratory failure: Plan: still needing 3L 02 even after 3.5 L UF; needs another HD session tomorrow to keep him out of hospital next week (3) ESRD (end stage renal disease) on dialysis: Plan: continue mwf HD; continue current dialysis meds at d/c > including anti hypertensives, phos phate binder, nephrocaps (4) HFrEF (heart failure with reduced ejection fraction): Plan: ensure cardiology f/u after d/c Admission and Anticipated Discharge Date Admission Date: May 17, 2023 Subjective no interval events; still needing 3L 02NC. wants to leave today Review of Systems Review of Systems: All systems reviewed & are unremarkable except as noted in Subjective Physical Exam Constitutional: well developed, well nourished and cooperative Eyes: EOM intact bilaterally ENMT: Ears: no external ear abnormality Nose: no external nose abnormality Mouth: + dry oral mucous membranes Neck: no nuchal rigidity Respiratory: normal respiratory effort Auscultation: + diminished lung sounds Cardiovascular: Rate/Rhythm: regular rate and regular rhythm Heart Sounds: + murmur Extremities: + AV fistula; no edema Gastrointestinal (Abdomen): Inspection/Auscultation: normal bowel sounds Percussion/Palpation: abdomen soft; abdomen nontender Musculoskeletal: Extremities: strength 5/5 throughout Skin: no rashes, warm and dry Neurologic: sim, fluent speech, no tremor Psychiatric: Orientation: alert and oriented x 3 Results & Data Vital Signs (Past 12 Hours) Vital Signs Temp Pulse Pulse Pulse Pulse Resp BP 05/19/23 15:49 99 H 05/19/23 15:36 36.5 C 68 18 05/19/23 13:15 36.6 C 67 05/19/23 13:00 47 L 169/109 H 05/19/23 13:56 36.9 C 74 16 05/19/23 12:30 50 L 141/66 H 05/19/23 12:00 70 157/102 H 05/19/23 11:30 57 L 153/96 H 05/19/23 11:00 56 L 170/87 H 05/19/23 10:30 66 154/81 H 05/19/23 10:45 05/19/23 10:00 59 L 154/64 H 05/19/23 09:30 50 L 139/64 05/19/23 09:00 36.6 C 73 05/19/23 07:59 36.6 C 74 18 05/19/23 08:12 69 BP BP Pulse Ox O2 Del Method O2 Flow Rate 05/19/23 15:49 05/19/23 15:36 171/86 H 96 Nasal Cannula 3 05/19/23 13:15 159/85 H 05/19/23 13:00 05/19/23 13:56 152/88 H 98 Nasal Cannula 3 05/19/23 12:30 05/19/23 12:00 05/19/23 11:30 05/19/23 11:00 05/19/23 10:30 05/19/23 10:45 Nasal Cannula 3 05/19/23 10:00 05/19/23 09:30 05/19/23 09:00 05/19/23 07:59 175/83 H 96 Nasal Cannula 3 05/19/23 08:12 Laboratory Results 05/18/23 06:33 05/19/23 07:52
--- NOTE | 2023-05-19 17:53 | Nephrology Consultation ---
Date of Consultation May 18, 2023 *delayed note written 05/19/23 for consult performed 05/18/23 after 05/18 consult document inadvertently deleted Assessment & Plan (1) Acute hypoxemic respiratory failure: anuric patient still needs 4L 02NC after 1L tap today recommended dialysis again today but pt declines; plan HD tomorrow (2) ESRD (end stage renal disease) on dialysis: ESRD MWF > needs additional dialysis in my clinical opinion but often refuses it as he did today stating it exhausts him too greatly >routine HD tomorrow >HTN / elevated BP b/c of need for HD > will also continue his OP amlodipine hs, losartan, metoprolol >will continue his severalmer (1600 ac), cinacalcet, renavite -started 1.2 L FR Care coordinated w/ Dr Schaefer (3) Recurrent pleural effusion: needs plan for serial thoracentesis per last pulm note > would arrange before d /c w/ [facility] pulm (4) HFrEF (heart failure with reduced ejection fraction): has cancelled 2 visits now OP w/ [facility] >> will educate and d/w him; pls reschedule before d/c History of Present Illness Reason for Consultation: ESRD Requesting Physician: Dr Rush Attending Physician: Jeff Schaefer MD History of Present Illness 67 y/o M whom I'm asked to see for dialysis needs was sent from dialysis at my direction w/ acute hypoxemic respiratory failure despite aggressive UF at dialysis yesterday. 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 Also hx of Staph aureus PD peritonitis 10/2022 w/ catheter malfunction; w/ severe adhesions at PD cath removal. In the wake of his peritonitis, EF on TTE dropped to 65%>45%; cardiology did follow him as IP and OP stress test versus cardiac cath was considered. w/ frequent hospital stays, pt has not seen cardiology as OP since spring. follows w/ [facility] pulmonary, including for chronic /intermittent thoracentesis. HE came to HD yesterday in a w/c (normally ambulatory w/o asst) w/ 02 sats in 70s on RA. He needed 5-6 L to maintain sats low 90s even after full dialysis. He needed 5.9 L fluid removal; not sure how much was ultimately removed (we were going for 3.5L which is usually his upper limit). Outpatient thoracentesis was contemplated but even at the end of tx he was needing 5 L 02 w/ sats in high 80s so he was sent to ER. He underwent L thoracentesis one L today. He feels improved. improved generalized weakness, fatigue, dyspnea. no cough. pt is anuric; no edema, no chest pain . no n/v/d/min burn. Allergies Allergy/AdvReac Type Severity Reaction Status Date / Time No Known Allergies Allergy Verified 03/26/23 12:21 Home Medications Medication Instructions Recorded Confirmed Type cinacalcet 30 mg tablet (Sensipar) 0 mg PO DAILY 08/19/22 05/17/23 History ferric citrate 210 mg iron tablet 210 mg PO TIDM 02/01/23 05/17/23 History (Auryxia) gabapentin 100 mg capsule 100 mg PO DIRECTED 03/26/23 05/17/23 History allopurinol 100 mg tablet 50 mg PO DAILY #30 tabs 03/28/23 05/17/23 Rx amlodipine 5 mg tablet 10 mg PO DAILY #30 tabs 03/28/23 05/17/23 Rx aspirin 81 mg tablet,delayed 81 mg PO QAM #30 tabs 03/28/23 05/17/23 Rx release atorvastatin 40 mg tablet 40 mg PO HS #30 tabs 03/28/23 05/17/23 Rx hydralazine 100 mg tablet 100 mg PO TID #90 tabs 03/28/23 05/17/23 Rx isosorbide dinitrate 20 mg tablet 20 mg PO TID@0700,1200,1700 #90 03/28/23 05/17/23 Rx tabs losartan 50 mg tablet (Cozaar) 50 mg PO AMHS #30 tabs 03/28/23 05/17/23 Rx metoprolol succinate 50 mg 100 mg PO QDD #60 tabs 03/28/23 05/17/23 Rx tablet,extended release 24 hr sevelamer carbonate 800 mg tablet 800 mg PO TIDM #90 tabs 03/28/23 05/17/23 Rx ergocalciferol (vitamin D2) 1,250 1,250 mcg PO WK 04/15/23 05/17/23 History mcg (50,000 unit) capsule (Vitamin D2) patiromer calcium sorbitex 8.4 8.4 g PO QAM 04/15/23 05/17/23 History gram oral powder packet (Veltassa) doxycycline hyclate 100 mg capsule 100 mg PO BID #3 caps 04/21/23 05/17/23 Rx Patient History Medical History Acute hypoxemic respiratory failure Acute respiratory failure with hypoxia Acute upper gastrointestinal bleeding Anemia Anemia of chronic disease AV fistula Benign prostatic hyperplasia with urinary obstruction Chest pain ESRD (end stage renal disease) on dialysis HD patient follows w/ Dr Munson [facility] 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 Fluid overload Heart failure with acute decompensation, type unknown Hyperkalemia Hypertension Hypervolemia Hypoxia Kidney transplant candidate reason for colonoscopy to get on list Nephrolithiasis Pleural effusion chronic, recurrent Recurrent pleural effusion Restless leg syndrome SOB (shortness of breath) Symptomatic anemia Surgical History H/O inguinal hernia repair History of colonoscopy History of cystoscopy History of thoracentesis History of tooth extraction Status post creation of arteriovenous fistula left arm Family History Other No family history of adverse response to anesthesia No significant family history Social History Smoking Status: Former smoker Tobacco Type: Cigarettes Second Hand Exposure: No; Do You Dip or Chew Tobacco: No; Hx Alcohol Use: No Hx Substance Use: No Preferred Language: Guinean Communication Ability: Effective Communication Ability Comment: pt using cell phone to translate Communication Tools: Other Soloist Dancer Required: Yes Beliefs That Will Affect Care: None marital status: Current Living Situation: Family current occupational status: employed Feels Safe at Home: Yes Safety Concerns: Feels Safe At This Time Assistive Devices: None Review of Systems Review of Systems: All systems reviewed & are unremarkable except as noted in HPI & below Physical Exam Physical Exam: Constitutional: well developed (sitting on side of bed on 4LNC when I saw him at about 11 AM), well nourished, + frail appearing and cooperative; no acute distress Eyes: EOM intact bilaterally ENMT: Ears: no external ear abnormality Nose: no external nose abnormality Mouth: + dry oral mucous membranes Neck: no nuchal rigidity Respiratory: normal respiratory effort Auscultation: + breath sounds absent (R base), + diminished lung sounds and + crackles (L base) Cardiovascular: Rate/Rhythm: regular rate and regular rhythm Extremities: + AV fistula; no edema Gastrointestinal (Abdomen): Inspection/Auscultation: normal bowel sounds Percussion/Palpation: abdomen soft; abdomen nontender Musculoskeletal: Extremities: strength 5/5 throughout Skin: no rashes, warm and dry Neurologic: sim, fluent speech, no tremor Psychiatric: Orientation: alert and oriented x 3 Results & Data Vital Signs (Past 12 Hours) Vital Signs Temp Pulse Pulse Pulse Pulse Resp BP 05/19/23 15:49 99 H 05/19/23 15:36 36.5 C 68 18 05/19/23 13:15 36.6 C 67 05/19/23 13:00 47 L 169/109 H 05/19/23 13:56 36.9 C 74 16 05/19/23 12:30 50 L 141/66 H 05/19/23 12:00 70 157/102 H 05/19/23 11:30 57 L 153/96 H 05/19/23 11:00 56 L 170/87 H 05/19/23 10:30 66 154/81 H 05/19/23 10:45 05/19/23 10:00 59 L 154/64 H 05/19/23 09:30 50 L 139/64 05/19/23 09:00 36.6 C 73 05/19/23 07:59 36.6 C 74 18 05/19/23 08:12 69 BP BP Pulse Ox O2 Del Method O2 Flow Rate 05/19/23 15:49 05/19/23 15:36 171/86 H 96 Nasal Cannula 3 05/19/23 13:15 159/85 H 05/19/23 13:00 05/19/23 13:56 152/88 H 98 Nasal Cannula 3 05/19/23 12:30 05/19/23 12:00 05/19/23 11:30 05/19/23 11:00 05/19/23 10:30 05/19/23 10:45 Nasal Cannula 3 05/19/23 10:00 05/19/23 09:30 05/19/23 09:00 05/19/23 07:59 175/83 H 96 Nasal Cannula 3 05/19/23 08:12 Laboratory Results reviewed Diagnostic Findings reviewed
--- NOTE | 2023-05-19 20:34 | Electrocardiogram Report ---
Test Reason : Blood Pressure : / mmHG Vent. Rate : 100 BPM Atrial Rate : 100 BPM P-R Int : 158 ms QRS Dur : 088 ms QT Int : 350 ms P-R-T Axes : 017 -03 135 degrees QTc Int : 451 ms Sinus rhythm with occasional Premature ventricular complexes and Premature atrial complexes Left ventricular hypertrophy with repolarization abnormality ( R in aVL , Sokolow-Macias , Basim prod uct ) Abnormal ECG When compared with ECG of 18-APR-2023 13:40, No significant change Confirmed by Víctor Sosa ([id number]) on 05/19/2023 8:33:52 PM Referred By: Confirmed By:Víctor Sosa
[2023-05-19] MEDS: amLODIPine BESYLATE 5 MG TAB PO SCH (21:20)
[2023-05-20 06:33] LABS: Basophils # (auto) 0.03 K/uL (0.00-0.20); Basophils % (auto) 0.4 %; Eosinophils # (auto) 0.34 K/uL (0.00-0.50); Eosinophils % (auto) 4.7 %; Hematocrit (blood only) 29.6 % (42.0-52.0); Hemoglobin 9.5 g/dl (14.0-18.0); Immature Granulocytes # (auto) 0.04 K/uL (0.01-0.20); Immature Granulocytes % (auto) 0.6 %; Lymphocytes # (auto) 0.89 K/uL (1.20-3.40); Lymphocytes % (auto) 12.4 %; Mean Corpuscular Hemoglobin 30.3 pg (25.0-34.0); Mean Corpuscular Hgb Conc 32.1 g/dL (32.0-36.0); Mean Corpuscular Volume 94.3 fL (80.0-100.0); Monocytes # (auto) 0.42 K/uL (0.11-0.59); Monocytes % (auto) 5.8 %; Neutrophils # (auto) 5.48 K/uL (1.40-6.50); Neutrophils % (auto) 76.1 %; Platelet Count 186 K/uL (130-400); RDW Coefficient of Variation 15.7 % (11.5-14.5); RDW Standard Deviation 54.4 fL (36.4-46.3); Red Blood Count 3.14 M/uL (4.70-6.10)
[2023-05-20] MEDS ORDERED: HEPARIN SOD (PORCINE) 1000 UNIT/ML IV SCH (07:00)
[2023-05-20] MEDS ORDERED: SODIUM CHLORIDE 0.9% 1,000 ML IV PRN (07:00)
[2023-05-20 07:03] LABS: Anion Gap 9 (3-11); Blood Urea Nitrogen 25 mg/dl (6-23); Calcium 9.3 mg/dl (8.6-10.3); Carbon Dioxide 31 mmol/L (21-32); Chloride 102 mmol/L (98-107); Est GFR (African American) 12.7 ml/min; Est GFR (Non-African American) 10.9 ml/min; Glucose 122 mg/dl (70-99(Fasting)); Potassium 3.7 mmol/L (3.5-5.1); Sodium 142 mmol/L (136-145)
[2023-05-20] MEDS: LOSARTAN POTASSIUM 50 MG TAB PO SCH (08:50)
[2023-05-20] MEDS: METOPROLOL SUCC 50MG EXT REL TAB PO SCH (08:50)
[2023-05-20] MEDS: HEPARIN SOD 5,000 UNIT/0.5 ML VIAL SQ SCH (08:50)
[2023-05-20] MEDS: allopurinoL 100 MG TAB PO SCH (08:50)
[2023-05-20] MEDS: NEPHROCAPS PO SCH (08:51)
[2023-05-20] MEDS: ASPIRIN 81 MG ECTAB PO SCH (08:51)
[2023-05-20] MEDS: SEVELAMER HCL 800 MG TABLET PO SCH ×2 (08:51→12:20)
[2023-05-20] MEDS: HEPARIN SOD (PORCINE) 1000 UNIT/ML IV SCH ×2 (12:54→12:55)
--- NOTE | 2023-05-20 13:08 | Discharge Summary ---
Date of Service May 20, 2023 Admission HPI Per Admitting Provider This is a 67-year-old Barbadian-speaking male with PMHx of HTN, chronic systolic CHF EF of 40-45%, paroxysmal a flutter, aortic root dilatation,end-stage renal disease on hemodialysis on MWF, anemia of chronic disease, protein calorie malnutrition who presents to the hospital with worsening shortness of breath during hemodialysis at [facility]. Pt is Anuric. We were able to use a medical interpreter service; however, patient was somnolent and only answered yes and no to questions with keeping his eyes closed. Patient follows with pulmonary regarding thoracentesis. His latest pleural fluid cytology was from December 2022 revealing inflammatory cells without malignancy. His last thoracentesis was completed by IR 04/20/2023 left side with 1 L juan carlos-colored fluid removed. Echo from 04/18/2023 revealed an LVEF of 45 to 50%. Severe concentric LVH with mild global hypokinesis. No leukocytosis, Troponin chronically elevated 414.8; do not suspect ACS, rather ischemic demand, Lactate 2.1, Creatinine 3.53. For now, unfortunately, this gentleman is a complex end-stage patient with kidney, lung, and heart failure. Overall, patient has continued to have recurrent bilateral pleural effusions secondary to volume overload with end- stage HFrEF/ESRD. Patient is followed closely by pulmonary medicine with last visit 04/19 indicating numerous thoracentesis in this patient's past with no indication for pleurodesis. Each time thoracentesis is discussed patient appears to be reluctant. Was able to discuss directly with Dr. Pickering who indicated that the patient has been placed on standing order for him to receive thoracentesis every 4 weeks moving forward; discussed with Juan David Oakes and IR and plan for thoracentesis 05/18 at 10 AM. Okay to continue aspirin and heparin sq. Patient has made significant progression from peritoneal dialysis to hemodialysis over the past year; historically patient has had flat affect and is reluctant to having any goals of care conversation. While I was in the room the patient's daughter did call at the bedside phone and I was able to talk to her and give her an update. Patient daughter is receptive to having overall goals of care conversation and palliative medicine consultation. Patient will be admitted for further evaluation and management. Please see A/P for further details. Admission Exam Per Admitting Provider General: In no acute distress Eyes: PERRL ENMT: BIPAP mask in place Respiratory: On BIPAP, in no distress, diminished breath sounds lung bases Cardiovascular: Irregular, S1 S2 Gastrointestinal (Abdomen): Abdomen is not distended, soft, non-tender to palpation, no guarding, no palpable hepatosplenomegaly, normal bowel sounds Musculoskeletal: No pedal edema Neurologic: Limited exam due to poor participation. Psychiatric: Flat affect Principal Diagnosis Acute hypoxemia Respiratory Failure: Recurrent pleural effusions: Status post paracentesis on 05/18 Discharge Exam Constitutional: WD/WN, vitals as above, NAD, sitting up in bed, pleasant, conversing easily Respiratory: Bilateral decreased breath sound at bases. Cardiovascular: RRR, no murmur, no edema Vessels: no JVD or carotid bruit Chest: normal inspection of chest Abdomen: normal bowel sounds, soft, nontender, no hepatosplenomegaly Musculoskeletal: no cyanosis or clubbing, extremities motor strength 5/5 Skin: no rashes, warm and dry normal turgor Neurologic: PERRL, EOMI, accommodation nl, no face palsy, no dysarthria CN's II- XI intact bilaterally and moves all extremities Psychiatric: A+Ox3, euthymic affect Discharge Data Allergies Allergy/AdvReac Type Severity Reaction Status Date / Time No Known Allergies Allergy Verified 03/26/23 12:21 Consultations 05/17/23 13:25 ED Decision to Admit Stat 05/17/23 13:30 Consult Nephrology Routine 05/17/23 14:00 Consult Palliative Care Routine Ordered Studies 05/18/23 10:00 IR thoracentesis wo tube US Routine Hospital Course (1) Acute hypoxemic respiratory failure: (2) Recurrent pleural effusion: (3) HFrEF (heart failure with reduced ejection fraction): (4) Hypertensive urgency: (5) ESRD (end stage renal disease) on dialysis: (6) Anemia of chronic disease: (7) Goals of care, counseling/discussion: Plan This is a 67-year-old [place]adian-speaking male with PMHx of HTN,HFrEF 40-45%, hypoxemia respiratory failure with recurrent b/l pleural effusions secondary to volume overload, paroxysmal a flutter, aortic root dilatation,ESRD on HD MWF, anemia of chronic disease, protein calorie malnutrition who presents to the hospital with worsening SOB during hemodialysis at [facility]. Acute hypoxemia Respiratory Failure: Recurrent pleural effusions: Status post paracentesis on 05/18 History of pleural effusion requiring repeated paracentesis He was sent to ED from dialysis for shortness of breath. CXRon admission personally reviewed: Significant increase in size of a moderate to large left pleural effusion. No significant change in a small right pleural effusion. Increase in bibasilar opacities, greater on the left. Cardiomegaly with interstitial pulmonary edema. Repeat chest x-ray after thoracentesis reviewed again; decreased left-sided pleural effusion. Patient also underwent extra session of hemodialysis during the hospitalization Discussion was done with pulmonology during the hospitalization; recommended serial thoracentesis by IR as outpatient as previously planned. Patient to follow-up with pulmonology next week and set up outpatient serial thoracentesis by IR. This was discussed with her daughter as well. Palliative care was also consulted for goals of care discussion; patient remained full code. At discharge, patient was at 2 L of oxygen saturating around 98% Patient to also follow-up with PCP Please note the above document was generated using voice recognition software. It may contain grammatical, syntax or spelling errors. Any formal questions or concerns about the content, text or information contained within the body of this dictation should be directly addressed to the provider for clarification Total Time Total Time Spent Total Time Spent (In Minutes): 45 Total Time Includes: Examination of the Patient, Discharge Planning, Medication Reconciliation, Communication With Other Providers and Other Discharge Plan Discharge Items Patient Disposition: Home - Self-Care Reason For Visit: HYPOXIA Discharge Diagnosis: Acute hypoxemia Respiratory Failure: Recurrent pleural effusions: Status post paracentesis on 05/18 Activity: Resume your previous activity Non-emergency contact: Primary Care Provider Call non-emergency contact if: you have any medication questions and your symptoms worsen Follow-up/Referrals: Cisco Starkey MD [Primary Care Provider] - (Date & Time 05/23/2023 1:00 PMProviCisco [address]unkett, [facility] ) Diet: Regular Addtl Attending Provider Instructions: You were admitted to the hospital due to low oxygen level. The reason for it is pleural effusion. You underwent thoracentesis on May 18, 2023. Discussion was done with the Dr. Pickering (Disability Aide) during the hospitalization. He wants you to follow-up with him for next week. The plan is for serial thoracentesis that is to be arranged by pulmonology. Please follow-up with your PCP as scheduled. Please follow-up with cardiology and nephrology as scheduled. Pending Studies at Discharge: No Stand-Alone Forms: My [facility], Smoking Cessation Medications and DC Order Prescriptions: Continued cinacalcet [Sensipar] 30 mg tablet 0 mg PO DAILY Rx Instructions: [facility] unable to verify LAST FILLED 10/20/22 FOR 30 DAYS. Auryxia 210 mg iron tablet 210 mg PO TIDM Rx Instructions: Total 5 tabs per day. Picked up on January 29 & SNACKS. PER EXT MED HX. ergocalciferol (vitamin D2) [Vitamin D2] 1,250 mcg (50,000 unit) capsule 1,250 mcg PO WK [place]elt[place] 8.4 gram powder in packet 8.4 g PO QAM gabapentin 100 mg capsule 100 mg PO DIRECTED isosorbide dinitrate 20 mg Tablet 20 mg PO TID@0700,1200,1700 Qty: 90 0RF metoprolol succinate 50 mg Tablet Extended Release 24 Hr 100 mg PO QDD Qty: 60 0RF Hold Instructions: Resume on 04/27/23. Hold this medication until told to resume by your Senior Benefits Specialist due to bradycardia aspirin 81 mg Tablet,Delayed Release (Dr/Ec) 81 mg PO QAM Qty: 30 0RF losartan [Cozaar] 50 mg Tablet 50 mg PO AMHS Qty: 30 0RF amlodipine 5 mg tablet 10 mg PO DAILY Qty: 30 0RF hydralazine 100 mg tablet 100 mg PO TID Qty: 90 0RF Rx Instructions: Hasnt picked up this dose yet, picked up 50 mg first (QID) sevelamer carbonate 800 mg tablet 800 mg PO TIDM Qty: 90 0RF Rx Instructions: & SNACKS, PER EXT MED HX. 6 tablets daily atorvastatin 40 mg tablet 40 mg PO HS Qty: 30 0RF allopurinol 100 mg tablet 50 mg PO DAILY Qty: 30 0RF Rx Instructions: (50mg) half tab daily LAST FILLED 10/03/22 FOR 30 DAYS. Discontinued doxycycline hyclate 100 mg Capsule 100 mg PO BID Qty: 3 0RF Discharge Orders: Discharge Order (Routine); Ordered 05/20/23 Ordered By: Jeff Devkota Admission Data Admit Date/Time: 05/17/23 13:30 Attending Provider: Jeff Schaefer Admit Provider: Celestina Rush I. Primary Care Provider: Cisco Starkey Other Providers: Celestina Rush I. ; Rita Munson ; Noelle Jensen
--- NOTE | 2023-05-20 13:32 | Dialysis Progress Note ---
Date of Service May 20, 2023 Assessment & Plan (1) Acute hypoxemic respiratory failure: Plan: - Better, saturating well on nasal cannula - had 1.5 lit UF today (2) ESRD (end stage renal disease) on dialysis: Plan: ESRD MWF -Had HD today with 1.5 lit UF. >bp better,continue his OP amlodipine hs, losartan, metoprolol >will continue his severalmer (1600 ac), cinacalcet, renavite (3) Recurrent pleural effusion: Plan: needs plan for serial thoracentesis per last pulm note > arrange before d/c w/ [facility] pulm (4) HFrEF (heart failure with reduced ejection fraction): Plan: has cancelled 2 visits now OP w/ [facility] ; pls reschedule before d/c Admission and Anticipated Discharge Date Admission Date: May 17, 2023 Subjective Sitting comfortably in bed, on nasal cannula Review of Systems Review of Systems: All systems reviewed & are unremarkable except as noted in HPI & below Results & Data Vital Signs (Past 12 Hours) Vital Signs Temp Pulse Pulse Pulse Resp BP BP 05/20/23 11:53 36.6 C 64 150/73 H 05/20/23 11:30 64 144/74 H 05/20/23 11:59 36.5 C 71 19 144/72 H 05/20/23 08:00 67 05/20/23 08:00 05/20/23 11:00 53 L 130/72 05/20/23 10:30 53 L 148/103 H 05/20/23 10:00 58 L 149/98 H 05/20/23 09:22 36.5 C 57 L 05/20/23 09:31 57 L 132/96 05/20/23 07:23 36.7 C 69 19 167/91 H 05/20/23 02:27 37.2 C 76 16 182/105 H Pulse Ox O2 Del Method O2 Flow Rate 05/20/23 11:53 05/20/23 11:30 05/20/23 11:59 98 Nasal Cannula 05/20/23 08:00 05/20/23 08:00 Nasal Cannula 3 05/20/23 11:00 05/20/23 10:30 05/20/23 10:00 05/20/23 09:22 05/20/23 09:31 05/20/23 07:23 97 Nasal Cannula 3 05/20/23 02:27 97 Nasal Cannula 3 Laboratory Results 05/20/23 05:23 05/20/23 05:23
== END 2023-05-20 14:52 | disposition home or self-care (01) | DRG 186 ==
LOC: ED 11:45 → SUATTDRO 13:30 → EDINP 13:30 → 4W 15:31

== ENCOUNTER 2023-06-12 02:11 | Inpatient (IN) ==
[2023-06-12] MEDS ORDERED: ASPIRIN CHEW 324 MG ONE (02:18)
[2023-06-12] MEDS ORDERED: ACETAMINOPHEN 1,000 MG/100 ML VIAL IV STA (02:26)
[2023-06-12] MEDS ORDERED: PIPERACILLIN/TAZOBACTAM 4.5 GM/100 ML BAG IV ONE (02:26)
--- NOTE | 2023-06-12 02:35 | Emergency Department Note ---
History of Present Illness General Chief complaint: Shortness of Breath/Dyspnea Stated complaint: SOB, Chest Pain Time Seen by Provider: 06/12/23 02:19 History of Present Illness This is a 67-year-old Vietnamese-speaking male with PMHx of HTN, HFrEF 40-45%, hypoxemia respiratory failure with recurrent b/l pleural effusions secondary to volume overload, paroxysmal a flutter, aortic root dilatation,ESRD on HD MWF, anemia of chronic disease, protein calorie malnutrition who presents to the hospital complaining of cough, congestion, chest pain and dyspnea for the past few days steadily getting worse. Patient missed dialysis on Monday. Patient did not realize he had a fever. Patient denies abdominal pain, vomiting, diarrhea, flulike illness. He does not smoke. He is requesting something to drink. He is Vietnamese-speaking and the vision teacher line was utilized. Home Medications Medication Instructions Recorded Confirmed Type cinacalcet 30 mg tablet (Sensipar) 0 mg PO DAILY 08/19/22 06/12/23 History gabapentin 100 mg capsule 100 mg PO 3XWK 03/26/23 06/12/23 History allopurinol 100 mg tablet 50 mg (1/2 x 100 mg) PO DAILY #30 03/28/23 06/12/23 Rx tabs aspirin 81 mg tablet,delayed 81 mg PO QAM #30 tabs 03/28/23 06/12/23 Rx release atorvastatin 40 mg tablet 40 mg PO HS #30 tabs 03/28/23 06/12/23 Rx hydralazine 100 mg tablet 100 mg PO TID #90 tabs 03/28/23 06/12/23 Rx isosorbide dinitrate 20 mg tablet 20 mg PO TID@0700,1200,1700 #90 03/28/23 06/12/23 Rx tabs losartan 50 mg tablet (Cozaar) 50 mg PO AMHS #30 tabs 03/28/23 06/12/23 Rx metoprolol succinate 50 mg 100 mg (2 x 50 mg) PO QDD #60 tabs 03/28/23 06/12/23 Rx tablet,extended release 24 hr sevelamer carbonate 800 mg tablet 800 mg PO TIDM #90 tabs 03/28/23 06/12/23 Rx ergocalciferol (vitamin D2) 1,250 1,250 mcg PO WK 04/15/23 06/12/23 History mcg (50,000 unit) capsule (Vitamin D2) amlodipine 10 mg tablet 10 mg PO DAILY 06/12/23 06/12/23 History ferric citrate 210 mg iron tablet 420 mg PO .WITH MEALS & SNACKS 06/12/23 06/12/23 History (Auryxia) patiromer calcium sorbitex 16.8 16.8 g PO QAM 06/12/23 06/12/23 History gram oral powder packet (Veltassa) Allergies Allergy/AdvReac Type Severity Reaction Status Date / Time No Known Allergies Allergy Verified 03/26/23 12:21 Past Med/Surg History Medical History Palliative care encounter Recurrent pleural effusion Chest pain Acute respiratory failure with hypoxia Hypoxia Hypervolemia SOB (shortness of breath) Heart failure with acute decompensation, type unknown Acute hypoxemic respiratory failure Anemia of chronic disease Fluid overload Pleural effusion chronic, recurrent Hyperkalemia Symptomatic anemia Anemia Acute upper gastrointestinal bleeding ESRD (end stage renal disease) on dialysis HD patient follows w/ Dr Munson [facility] 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 AV fistula Kidney transplant candidate reason for colonoscopy to get on list Hypertension Restless leg syndrome Nephrolithiasis Benign prostatic hyperplasia with urinary obstruction Surgical History History of colonoscopy H/O inguinal hernia repair History of cystoscopy Status post creation of arteriovenous fistula left arm History of tooth extraction History of thoracentesis Family History Other No family history of adverse response to anesthesia No significant family history Social History Smoking Status: Never smoker Tobacco Type: Cigarettes Second Hand Exposure: No; Do You Dip or Chew Tobacco: No; Hx Alcohol Use: No Hx Substance Use: No Preferred Language: Vietnamese Communication Ability: Effective Communication Ability Comment: pt using cell phone to translate Communication Tools: Other Parker Required: Yes Beliefs That Will Affect Care: None marital status: Current Living Situation: Family current occupational status: employed Feels Safe at Home: Yes Assistive Devices: None Review of Systems A total of 10 systems reviewed and were otherwise negative Physical Exam Vital Signs Vital Signs - 24 hr 06/12/23 02:20 06/12/23 02:20 06/12/23 02:20 Temperature 38.0 C H Temperature Source Oral Pulse Rate 100 H 93 H Pulse Rate from SpO2 Sensor Respiratory Rate 20 Respiratory Effort / Characteristics Spontaneous Non-Labored Spontaneous Respiratory Depth Normal Blood Pressure 184/101 H Blood Pressure Mean 128 Pulse Oximetry 91 Oxygen Delivery Method Nasal Cannula Nasal Cannula Oxygen Flow Rate 2 4 Sepsis Recent Fever Within 48 Hours Yes Sepsis New/Unexplained Change in Mental Status No Sepsis Action Taken by Nursing No Action Required Oxygen Flow Rate - Titration Pulse Oximetry Post Tiitration 06/12/23 02:20 06/12/23 02:20 06/12/23 02:21 Temperature Temperature Source Pulse Rate 97 H Pulse Rate from SpO2 Sensor 97 H Respiratory Rate 40 H Respiratory Effort / Characteristics Non-Labored Spontaneous Respiratory Depth Normal Blood Pressure Blood Pressure Mean Pulse Oximetry 88 L 90 Oxygen Delivery Method Room Air Nasal Cannula Oxygen Flow Rate 0 Sepsis Recent Fever Within 48 Hours Sepsis New/Unexplained Change in Mental Status Sepsis Action Taken by Nursing Oxygen Flow Rate - Titration 4 Pulse Oximetry Post Tiitration 92 06/12/23 02:27 06/12/23 02:30 06/12/23 02:45 Temperature Temperature Source Pulse Rate 95 H 95 H Pulse Rate from SpO2 Sensor 95 H Respiratory Rate 38 H 26 H Respiratory Effort / Characteristics Respiratory Depth Blood Pressure Blood Pressure Mean Pulse Oximetry 94 93 Oxygen Delivery Method Nasal Cannula Oxygen Flow Rate Sepsis Recent Fever Within 48 Hours Sepsis New/Unexplained Change in Mental Status Sepsis Action Taken by Nursing Oxygen Flow Rate - Titration Pulse Oximetry Post Tiitration 06/12/23 03:00 06/12/23 03:10 06/12/23 03:15 Temperature Temperature Source Pulse Rate 92 H 93 H 91 H Pulse Rate from SpO2 Sensor 90 92 H Respiratory Rate 26 H 46 H Respiratory Effort / Characteristics Respiratory Depth Blood Pressure 184/104 H Blood Pressure Mean Pulse Oximetry 92 94 Oxygen Delivery Method Oxygen Flow Rate Sepsis Recent Fever Within 48 Hours Sepsis New/Unexplained Change in Mental Status Sepsis Action Taken by Nursing Oxygen Flow Rate - Titration Pulse Oximetry Post Tiitration 06/12/23 03:30 06/12/23 03:37 06/12/23 03:45 Temperature Temperature Source Pulse Rate 92 H 90 84 Pulse Rate from SpO2 Sensor Respiratory Rate 32 H 27 H 36 H Respiratory Effort / Characteristics Respiratory Depth Blood Pressure 178/108 H 178/115 H Blood Pressure Mean 131 136 Pulse Oximetry Oxygen Delivery Method Oxygen Flow Rate Sepsis Recent Fever Within 48 Hours Sepsis New/Unexplained Change in Mental Status Sepsis Action Taken by Nursing Oxygen Flow Rate - Titration Pulse Oximetry Post Tiitration 06/12/23 03:55 06/12/23 04:00 06/12/23 04:15 Temperature Temperature Source Pulse Rate 73 72 83 Pulse Rate from SpO2 Sensor 74 82 Respiratory Rate 22 30 H Respiratory Effort / Characteristics Respiratory Depth Blood Pressure 179/113 H 161/98 H 165/93 H Blood Pressure Mean 119 117 Pulse Oximetry 95 96 Oxygen Delivery Method Oxygen Flow Rate Sepsis Recent Fever Within 48 Hours Sepsis New/Unexplained Change in Mental Status Sepsis Action Taken by Nursing Oxygen Flow Rate - Titration Pulse Oximetry Post Tiitration 06/12/23 04:30 06/12/23 04:36 06/12/23 04:45 Temperature Temperature Source Pulse Rate 79 79 Pulse Rate from SpO2 Sensor 78 80 Respiratory Rate 36 H 31 H Respiratory Effort / Characteristics Respiratory Depth Blood Pressure 160/96 H 158/92 H Blood Pressure Mean 117 114 Pulse Oximetry 91 90 91 Oxygen Delivery Method Nasal Cannula Oxygen Flow Rate 5 Sepsis Recent Fever Within 48 Hours Sepsis New/Unexplained Change in Mental Status Sepsis Action Taken by Nursing Oxygen Flow Rate - Titration Pulse Oximetry Post Tiitration 06/12/23 05:00 Temperature Temperature Source Pulse Rate 95 H Pulse Rate from SpO2 Sensor Respiratory Rate 37 H Respiratory Effort / Characteristics Respiratory Depth Blood Pressure 174/88 H Blood Pressure Mean 116 Pulse Oximetry Oxygen Delivery Method Oxygen Flow Rate Sepsis Recent Fever Within 48 Hours Sepsis New/Unexplained Change in Mental Status Sepsis Action Taken by Nursing Oxygen Flow Rate - Titration Pulse Oximetry Post Tiitration VITALS: Vitals are noted on the nurse's note and reviewed by myself. Vital signs hypoxic on room air and patient was placed on a nasal cannula with O2. GENERAL: Male speaking in full sentences, in no acute distress, nondiaphoretic, well-developed well-nourished. SKIN: The skin was without rashes, or bruising. There is no tenting of the skin. Capillary reflex less than 2 seconds. HEAD: Normocephalic atraumatic. EARS: External auditory canals clear, EYES: Pupils equal round and reactive to light and accommodation. Conjunctivae without injection, sclerae without icterus. Extraocular movements intact. NOSE: Patent, turbinates discharge. MOUTH: Mucous membranes moist. Pharynx without erythema or exudate. Uvula midline. Airway patent. Tongue does not deviate. NECK: Supple without nuchal rigidity. No lymphadenopathy. No thyromegaly. Cervical spine is nontender. No JVD. HEART: Regular rate and rhythm LUNGS: Bibasilar rales. no retractions or accessory muscle use. ABDOMEN: Positive bowel sounds x 4. Normal tympanic percussion. Soft, nontender, without masses or organomegaly. Jon sign negative. No guarding or rebound tenderness. No CVA tenderness MUSCULOSKELETAL: No muscle atrophy noted. Left bicep fistula present. NEURO: Patient was alert and oriented to person place and time. Normal sensation to light and sharp touch. No focal neurological deficits. Course Administered Medications Discontinued Medications Dextrose (Dextrose 50% 50 Ml Syringe) 50 ml IV ONE STA Stop: 06/12/23 04:13 Last Admin: 06/12/23 04:52 Dose: 50 ml Documented By: NIKI Piperacillin Sod/Tazobactam Sod (Zosyn) 4.5 gm in 100 mls @ 200 mls/hr IV NOW ONE Stop: 06/12/23 02:55 Last Infusion: 06/12/23 04:57 Dose: Infused Documented By: Admin: 06/12/23 03:40 Dose: 200 mls/hr Documented By: GERALDO Acetaminophen (Ofirmev) 1,000 mg in 100 mls @ 400 mls/hr IV NOW STA Stop: 06/12/23 02:40 Last Infusion: 06/12/23 03:55 Dose: Infused Documented By: Admin: 06/12/23 03:10 Dose: 400 mls/hr Documented By: GERALDO Vancomycin HCl 1,500 mg/ (Sodium Chloride) 530 mls @ 200 mls/hr IV NOW STA Stop: 06/12/23 05:40 Last Admin: 06/12/23 04:01 Dose: 200 mls/hr Documented By: GERALDO Calcium Gluconate () 1,000 mg in 60 mls @ 240 mls/hr IV NOW STA Stop: 06/12/23 04:19 Last Infusion: 06/12/23 04:56 Dose: Infused Documented By: Admin: 06/12/23 04:21 Dose: 240 mls/hr Documented By: GERALDO Insulin Human Regular (Novolin-R Insulin Per Unit Charge) 5 units IV NOW STA Stop: 06/12/23 04:13 Last Admin: 06/12/23 04:52 Dose: 5 units Documented By: NIKI Co-signed By: GERALDO Ipratropium [place]on (Ipratropium [place] Neb Soln 0.02% 2.5 Ml Vial) 0.5 mg INH NOW STA Stop: 06/12/23 03:48 Last Admin: 06/12/23 04:01 Dose: 0.5 mg Documented By: GERALDO Levalbuterol HCl (Levalbuterol 1.25 Mg/3 Ml Neb) 1.25 mg NEB NOW STA Stop: 06/12/23 03:48 Last Admin: 06/12/23 04:01 Dose: 1.25 mg Documented By: GERALDO Methylprednisolone (Methylprednisolone 40 Mg/Ml Vial) 20 mg IV ONE STA Stop: 06/12/23 04:07 Last Admin: 06/12/23 04:22 Dose: 20 mg Documented By: GERALDO Metoprolol Tartrate (Metoprolol Tartrate 1 Mg/Ml Vial) 5 mg IV NOW STA Stop: 06/12/23 02:59 Last Admin: 06/12/23 03:10 Dose: 5 mg Documented By: GERALDO Sodium Bicarbonate (Sodium Bicarb 8.4% Inj 50 Meq/50 Ml Syr) 50 meq IV NOW STA Stop: 06/12/23 04:06 Last Admin: 06/12/23 04:21 Dose: 50 meq Documented By: GERALDO Critical Care Time Critical Care Time: Yes Total Critical Care Time: 35 I have personally spent 35 minutes of critical care time in the direct management of this patient. This includes bedside care, interpretation of diagnostic studies, and testing, discussion with consultants, patient, and family members, and other required patient management activities. This 35 minutes is in excess of all separately billable procedures. Medical Decision Making Medical Records Attestation: I reviewed the patient's medical records. Home Medications Current Medication List: was personally reviewed by me Laboratory Data Attestation: I reviewed the patient's lab results. 06/12/23 03:03 06/12/23 03:03 Lab Results 06/12/23 06/12/23 06/12/23 Range/Units 00:31 03:03 03:28 WBC 14.33 H (4.8-10.8) K/ul RBC 3.25 L (4.70-6.10) M/uL Hgb 9.6 L (14.0-18.0) g/dl Hct 30.2 L (42.0-52.0) % MCV 92.9 (80.0-100.0) fL MCH 29.5 (25.0-34.0) pg MCHC 31.8 L (32.0-36.0) g/dL RDW Std Deviation 54.1 H (36.4-46.3) fL RDW Coeff of Diamond 15.9 H (11.5-14.5) % Plt Count 298 (130-400) K/uL MPV 10.8 (9.4-12.4) fL Immature Gran % (Auto) 0.6 % Neut % (Auto) 81.2 % Lymph % (Auto) 8.3 % [place] % (Auto) 9.2 % Eos % (Auto) 0.4 % Baso % (Auto) 0.3 % Neut # (Auto) 11.64 H (1.40-6.50) K/uL Lymph # (Auto) 1.19 L (1.20-3.40) K/uL [place] # (Auto) 1.32 H (0.11-0.59) K/uL Eos # (Auto) 0.06 (0.00-0.50) K/uL Baso # (Auto) 0.04 (0.00-0.20) K/uL Immature Gran # (Auto) 0.08 (0.01-0.20) K/uL ABG pH 7.44 (7.35-7.45) ABG pCO2 38 (35-46) mmHg ABG pO2 54 L (80-95) mmHg ABG HCO3 26 H (19-24) mmol/L ABG O2 Saturation 84.8 L (90-95) % ABG Base Excess 1.7 (-9-1.8) mEq/L Dharmesh Test Pos (Pos) Oxygen Given 2L Sodium 142 (136-145) mmol/L Potassium 6.4 H* (3.5-5.1) mmol/L Chloride 99 (98-107) mmol/L Carbon Dioxide 25 (21-32) mmol/L Anion Gap 18 H (3-11) BUN 119 H (6-23) mg/dl Creatinine 13.35 H* (0.6-1.4) mg/dl Est Cr Clr Drug Dosing 5.1 ml/min Est GFR ( Amer) 3.9 ml/min Est GFR (Non-Af Amer) 3.4 ml/min BUN/Creatinine Ratio 8.9 L (10-20) Glucose 71 (70-99(Fasting)) mg/dl Lactate 0.9 (0.4-2.0) mmol/L Calcium 9.5 (8.6-10.3) mg/dl Magnesium 2.3 (1.7-2.4) mg/dl Total Bilirubin 0.9 (0.2-1.0) mg/dl Direct Bilirubin 0.2 (0-0.2) mg/dl AST 15 (13-39) U/L ALT 15 (7-52) U/L Alkaline Phosphatase 59 (34-104) U/L Troponin I High Sens 426.2 H* (0-20) pg/ml B-Natriuretic Peptide > 4700 H (0-100) pg/ml Total Protein 6.1 (6.0-8.3) gm/dl Albumin 3.5 (3.4-5.0) gm/dl Procalcitonin 0.66 H (0-0.5) ng/ml Adenovirus (PCR) Not Detected (NotDetected) B. pertussis DNA (PCR) Not Detected (NotDetected) B.parapertussis DNA PCR Not Detected (NotDetected) C. pneumoniae DNA (PCR) Not Detected (NotDetected) Coronavirus OC43 (PCR) Not Detected (NotDetected) Coronavirus HKU1 (PCR) Not Detected (NotDetected) Coronavirus 229E (PCR) Not Detected (NotDetected) SARS-CoV-2 (PCR) Not Detected (NotDetected) Coronavirus NL63 (PCR) Not Detected (NotDetected) Human Metapneumovir PCR Not Detected (NotDetected) Influenza Type A (PCR) Not Detected (NotDetected) Influenza Type B (PCR) Not Detected (NotDetected) M. pneumoniae (PCR) Not Detected (NotDetected) Parainfluenza 1 (PCR) Not Detected (NotDetected) Parainfluenza 2 (PCR) Not Detected (NotDetected) Parainfluenza 3 (PCR) Not Detected (NotDetected) Parainfluenza 4 (PCR) Not Detected (NotDetected) RSV (PCR) Not Detected (NotDetected) Entero/Rhino (PCR) Not Detected (NotDetected) Imaging Data Attestation: I personally reviewed and interpreted this imaging study as follows: MDM Narrative Prior records/ancillary studies reviewed. Triage Nursing notes reviewed. Additional history obtained from nursing. The patient's history was concerning for chest pain shortness of breath cough with a fever and a dialysis patient. Differential diagnosis: Etiologies such as sepsis, UTI, pneumonia, metabolic, electrolyte abnormalities, cardiac sources, intracerebral event, toxicologic, neurologic, as well as others were entertained. Physical examination: As above. Pertinent findings were cough and fever. Vital signs reviewed and revealed low-grade fever. ER treatment provided: Blood and urine cultures Antibiotics: Zosyn and vancomycin Calcium, dextrose with insulin, Lokelma for treatment for hyperkalemia Tylenol for the fever An order was placed for continuous cardiac monitoring. The monitor shows a rate of 60-1 10 with a sinus rhythm per my interpretation. On reassessment the patient vital signs improved. Diagnostics interpretation by me: ECG: Ordered for sepsis EKG: Normal sinus, left axis, ST depression in anterolateral leads, rate of 97. Impression normal sinus rhythm with left axis deviation with ST depression in the anterolateral leads independently interpreted by myself and similar to prior EKG by chart review The labs Independently Interpreted by myself revealed leukocytosis. Chemistry panel revealed elevated creatinine and potassium. Patient did miss dialysis LFTs revealed. Cardiac enzymes were chronically elevated troponin and stable per chart review Serum Lactate measurement was negative Blood and urine cultures are pending. Imaging studies: Chest xray revealed with pulmonary edema with concern for possible secondary consolidation per my independent interpretation Consultation: A consultation was placed with the hospitalist. The case was discussed and diagnostics were reviewed. The patient was evaluated in the ER for further treatment. Consultation was placed with nephrology, Dr Callejas. The case was discussed. He recommends treatment for the hyperkalemia and will arrange dialysis in the morning. Hospitalist was made aware. Exam and history seem consistent with fluid overload from end-stage renal disease and heart failure along with pneumonia with hyperkalemia that was emergently treated as above. Patient was started on broad-spectrum antibiotics with MRSA coverage as he is recently hospitalized. Patient did miss dialysis. Creatinine and potassium are elevated. Nephrology and medicine were consulted. Blood cultures are pending. Patient had a full septic work-up. Medicine and nephrology were consulted and case discussed. He will be admitted to the medical service. Patient is agreeable. The chart was completed utilizing [employer] Speech voice recognition software. Grammatical errors, random word insertions, pronoun errors, and incomplete sentences are an occassional consequence of this system due to software limitations, ambient noise, and hardware issues. Any formal questions or concerns about the content, text, or information contained within the body of this dictation should be directly addressed to the physician assistant wrestling coach for clarification. Impression & Plan Pneumonia, ESRD (end stage renal disease) on dialysis, Acute hyperkalemia, Chest pain Discharge Plan Visit Data Chief Complaint: Shortness of Breath/Dyspnea Stated Complaint: SOB, Chest Pain ED Provider: Ashli Griffin ED Midlevel Provider: Magaly Padilla Discharge Problem: Pneumonia, ESRD (end stage renal disease) on dialysis, Acute hyperkalemia, Chest pain Patient Disposition: Admitted As Inpatient Condition: Fair Forms Stand Alone Forms: [employer] Prescriptions Prescriptions: No Action cinacalcet [Sensipar] 30 mg tablet 0 mg PO DAILY Rx Instructions: [facility] unable to verify LAST FILLED 10/20/22 FOR 30 DAYS. ergocalciferol (vitamin D2) [Vitamin D2] 1,250 mcg (50,000 unit) capsule 1,250 mcg PO WK amlodipine 10 mg tablet 10 mg PO DAILY Auryxia 210 mg iron tablet 420 mg PO .WITH MEALS & SNACKS Veltassa 16.8 gram powder in packet 16.8 g PO QAM gabapentin 100 mg capsule 100 mg PO [id number] Rx Instructions: take after dialysis on MONDAY,MONDAY,MONDAY isosorbide dinitrate 20 mg Tablet 20 mg PO TID@0700,1200,1700 Qty: 90 0RF Rx Instructions: LAST FILL IN metoprolol succinate 50 mg Tablet Extended Release 24 Hr 100 mg PO QDD Qty: 60 0RF Hold Instructions: Resume on 04/27/23. Hold this medication until told to resume by your Apple Checker due to bradycardia aspirin 81 mg Tablet,Delayed Release (Dr/Ec) 81 mg PO QAM Qty: 30 0RF losartan [Cozaar] 50 mg Tablet 50 mg PO AMHS Qty: 30 0RF hydralazine 100 mg tablet 100 mg PO TID Qty: 90 0RF sevelamer carbonate 800 mg tablet 800 mg PO TIDM Qty: 90 0RF Rx Instructions: & SNACKS, PER EXT MED HX. 6 tablets daily atorvastatin 40 mg tablet 40 mg PO HS Qty: 30 0RF allopurinol 100 mg tablet 50 mg PO DAILY Qty: 30 0RF Referrals Referrals: Cisco Starkey MD [Primary Care Provider] - Discharge Problem: Pneumonia Qualifiers: Pneumonia type: due to unspecified organism Laterality: unspecified laterality Lung location: unspecified part of lung Qualified Code(s): J18.9 - Pneumonia, unspecified organism
[2023-06-12] MEDS ORDERED: VANCOMYCIN CONSULT ACTIVE PRN (02:38)
[2023-06-12] MEDS ORDERED: VANCOMYCIN HCL 2,000 MG in SODIUM CHLORIDE 0.9% 500 ML IV ONE (02:38)
[2023-06-12] MEDS ORDERED: METOPROLOL TARTRATE 1 MG/ML VIAL IV STA (02:58)
[2023-06-12 03:17] LABS: Basophils # (auto) 0.04 K/uL (0.00-0.20); Basophils % (auto) 0.3 %; Eosinophils # (auto) 0.06 K/uL (0.00-0.50); Eosinophils % (auto) 0.4 %; Hematocrit (blood only) 30.2 % (42.0-52.0); Hemoglobin 9.6 g/dl (14.0-18.0); Immature Granulocytes # (auto) 0.08 K/uL (0.01-0.20); Immature Granulocytes % (auto) 0.6 %; Lymphocytes # (auto) 1.19 K/uL (1.20-3.40); Lymphocytes % (auto) 8.3 %; Mean Corpuscular Hemoglobin 29.5 pg (25.0-34.0); Mean Corpuscular Hgb Conc 31.8 g/dL (32.0-36.0); Mean Corpuscular Volume 92.9 fL (80.0-100.0); Mean Platelet Volume 10.8 fL (9.4-12.4); Monocytes # (auto) 1.32 K/uL (0.11-0.59); Monocytes % (auto) 9.2 %; Neutrophils # (auto) 11.64 K/uL (1.40-6.50); Neutrophils % (auto) 81.2 %; Platelet Count 298 K/uL (130-400); RDW Coefficient of Variation 15.9 % (11.5-14.5); RDW Standard Deviation 54.1 fL (36.4-46.3); Red Blood Count 3.25 M/uL (4.70-6.10); White Blood Count 14.33 K/ul (4.8-10.8)
[2023-06-12 03:37] LABS: Base Excess ABG 1.7 mEq/L (-9-1.8); HCO3 ABG 26 mmol/L (19-24); PCO2 ABG 38 mmHg (35-46); PO2 ABG 54 mmHg (80-95); pH ABG 7.44 (7.35-7.45)
[2023-06-12 03:42] LABS: Oxygen Saturation ABG 84.8 % (90-95)
[2023-06-12 03:44] LABS: Allen Test Pos (Pos)
[2023-06-12] MEDS ORDERED: LEVALBUTEROL 1.25 MG/3 ML NEB NEB STA (03:47)
[2023-06-12] MEDS ORDERED: IPRATROPIUM BROMIDE NEB SOLN 0.02% 2.5 ML VIAL INH STA (03:47)
[2023-06-12] MEDS ORDERED: XOPENEX/ATROVENT 1.25mg/0.5MG NEB COMBO NEB STA (03:47)
[2023-06-12 03:58] LABS: Albumin Level 3.5 gm/dl (3.4-5.0); BUN Creatinine Ratio 8.9 (10-20); Bilirubin Direct 0.2 mg/dl (0-0.2); Bilirubin,Total 0.9 mg/dl (0.2-1.0); Calcium 9.5 mg/dl (8.6-10.3); Creatinine Clr Calc Pharmacy 5.1 ml/min; Est GFR (African American) 3.9 ml/min; Est GFR (Non-African American) 3.4 ml/min; Magnesium 2.3 mg/dl (1.7-2.4); Potassium 6.4 mmol/L (3.5-5.1); Total Protein 6.1 gm/dl (6.0-8.3)
[2023-06-12] MEDS: VANCOMYCIN HCL 1,500 MG in SODIUM CHLORIDE 0.9% 500 ML IV STA ×2 (04:01→06:47)
[2023-06-12 04:02] LABS: Adenovirus PCR Not Detected (NotDetected); Bordetella parapertussis PCR Not Detected (NotDetected); Bordetella pertussis PCR Not Detected (NotDetected); Chlamydia pneumoniae PCR Not Detected (NotDetected); Coronavirus 229E PCR Not Detected (NotDetected); Coronavirus CoV-2 (COVID19)PCR Not Detected (NotDetected); Coronavirus HKU1 PCR Not Detected (NotDetected); Coronavirus NL63 PCR Not Detected (NotDetected); Coronavirus OC43PCR Not Detected (NotDetected); Human Metapneumovirus PCR Not Detected (NotDetected); Influenza A PCR Not Detected (NotDetected); Influenza B PCR Not Detected (NotDetected); Mycoplasma pneumoniae PCR Not Detected (NotDetected); Parainfluenza Virus 1 PCR Not Detected (NotDetected); Parainfluenza Virus 2 PCR Not Detected (NotDetected); Parainfluenza Virus 3 PCR Not Detected (NotDetected); Parainfluenza Virus 4 PCR Not Detected (NotDetected); Respiratory Syncytial VirusPCR Not Detected (NotDetected); Rhinovirus/Enterovirus PCR Not Detected (NotDetected)
[2023-06-12] MEDS ORDERED: methylPREDNISolone 20 MG in SYRINGE 0 ML IV STA (04:04)
[2023-06-12] MEDS ORDERED: SODIUM BICARB 8.4% INJ 50 MEQ/50 ML SYR IV STA (04:05)
[2023-06-12] MEDS ORDERED: CALCIUM GLUCONATE 1,000 MG/60 ML BAG IV STA (04:05)
--- NOTE | 2023-06-12 04:08 | History & Physical Report ---
Date of Service June 12, 2023 Assessment & Plan (1) Acute hypoxemic respiratory failure: Plan: Multifactorial: HCAP, patient meets criteria for severe sepsis, SIRS plus hypoxemia Cardiorenal syndrome, history of missed dialysis, hx systolic dysfunction, ESRD on HD, hx p-ANCA vasculitis as per records Recurrent pleural effusions HTN, troponin elevation elevated secondary to illness Hyperkalemia secondary to missed dialysis session, ARB Rx paroxysmal atrial flutter, patient currently NSR valvular heart disease (mild /mild TR/MR) hyperlipidemia, on statin Rx prediabetes, hemoglobin A1c 5.8 2021 chronic anemia, hemoglobin at baseline PCU Supplemental O2 Stat nebs, Solu-Medrol 1 dose now given bronchopneumonia causing hypoxemia CS, Cefepime, Doxycycline CT chest Re: Respiratory failure, cough Pulmonology consult Re: Recurrent pleural effusions, respiratory failure Calcium gluconate, IV insulin, bicarb, Veltassa for hyperkalemia Hold losartan Nephrology consult Re: Dialysis management (ER provider already in touch with Dr. Callejas.) Titrate home BP meds DVT prophylaxis with Heparin subcu Full code Total critical care time was 45 minutes. Patient requesting for daughters to be updated of plan of care. Sandy De La Rosa, [phone] Shital Bee, [phone] Text document was generated using [employer] voice recognition software. It may contain grammatical or spelling errors. Kindly contact undersigned for clarification of any documentation item in question. History of Present Illness Chief Complaint: Cough, worsening shortness of breath Primary Care Provider: Cisco Starkey MD History obtained from patient, tele-account manager education, and records. Limited history from patient secondary to language barrier. Medical history significant for chronic systolic heart failure (EF 45 to 50%, TTE 2022), paroxysmal atrial flutter,valvular heart disease (mild /mild TR/MR), aortic root dilatation, hypertension, hyperlipidemia, ESRD on HD, recurrent pleural effusions, P ANCA vasculitis as per records, prediabetes, chronic anemia (baseline hemoglobin 9-10). Monthly admissions since July,. Recent [facility] confinement last month for respiratory failure secondary to recurrent pleural effusions status post thoracentesis. Palliative care consulted to discuss goals of care with patient and family given recurrent admissions over the last several months. Patient and family communicated desire to still pursue active treatments for chronic medical conditions. Outpatient pulmonology follow-up visit 3 weeks ago. Recurrent pleural effusions attributed to underlying end-stage renal disease, heart failure and diet noncompliance as per note. Serial IR guided thoracentesis recommended outpatient. Junky cough symptoms noted over the last couple of weeks. Not sure about sick contacts. Denies aspiration. No fever, no chills. No consultations done. Patient unable to undergo hemodialysis 2 days ago due to access issues. 2 days ago, patient noted worsening shortness of breath and cough symptoms. Achy central chest pain from coughing. O2 sats 80s upon arrival at the ER. Vancomycin and Zosyn administered at the ER. 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, patient born in [place] Allergies Allergy/AdvReac Type Severity Reaction Status Date / Time No Known Allergies Allergy Verified 03/26/23 12:21 Home Medications Medication Instructions Recorded Confirmed Type cinacalcet 30 mg tablet (Sensipar) 30 mg PO DAILY 08/19/22 06/12/23 History gabapentin 100 mg capsule 100 mg PO 3XWK 03/26/23 06/12/23 History allopurinol 100 mg tablet 50 mg (1/2 x 100 mg) PO DAILY #30 03/28/23 06/12/23 Rx tabs aspirin 81 mg tablet,delayed 81 mg PO QAM #30 tabs 03/28/23 06/12/23 Rx release atorvastatin 40 mg tablet 40 mg PO HS #30 tabs 03/28/23 06/12/23 Rx hydralazine 100 mg tablet 100 mg PO TID #90 tabs 03/28/23 06/12/23 Rx isosorbide dinitrate 20 mg tablet 20 mg PO TID@0700,1200,1700 #90 03/28/23 06/12/23 Rx tabs losartan 50 mg tablet (Cozaar) 50 mg PO AMHS #30 tabs 03/28/23 06/12/23 Rx metoprolol succinate 50 mg 100 mg (2 x 50 mg) PO QDD #60 tabs 03/28/23 06/12/23 Rx tablet,extended release 24 hr sevelamer carbonate 800 mg tablet 800 mg PO TIDM #90 tabs 03/28/23 06/12/23 Rx ergocalciferol (vitamin D2) 1,250 1,250 mcg PO WK 04/15/23 06/12/23 History mcg (50,000 unit) capsule (Vitamin D2) RenaPlex 1 tab PO DAILY 06/12/23 06/12/23 History amlodipine 10 mg tablet 10 mg PO DAILY 06/12/23 06/12/23 History ferric citrate 210 mg iron tablet 420 mg PO .WITH MEALS & SNACKS 06/12/23 06/12/23 History (Auryxia) patiromer calcium sorbitex 16.8 16.8 g PO QAM 06/12/23 06/12/23 History gram oral powder packet (Veltassa) Past Med/Surg History Medical History Palliative care encounter Recurrent pleural effusion Chest pain Acute respiratory failure with hypoxia Hypoxia Hypervolemia SOB (shortness of breath) Heart failure with acute decompensation, type unknown Acute hypoxemic respiratory failure Anemia of chronic disease Fluid overload Pleural effusion chronic, recurrent Hyperkalemia Symptomatic anemia Anemia Acute upper gastrointestinal bleeding ESRD (end stage renal disease) on dialysis HD patient follows w/ Dr Munson [facility] 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 AV fistula Kidney transplant candidate reason for colonoscopy to get on list Hypertension Restless leg syndrome Nephrolithiasis Benign prostatic hyperplasia with urinary obstruction Surgical History History of colonoscopy H/O inguinal hernia repair History of cystoscopy Status post creation of arteriovenous fistula left arm History of tooth extraction History of thoracentesis Family History Other No family history of adverse response to anesthesia No significant family history Social History Smoking Status: Never smoker Tobacco Type: Cigarettes Second Hand Exposure: No; Do You Dip or Chew Tobacco: No; Hx Alcohol Use: No Hx Substance Use: No Preferred Language: Hungarian Communication Ability: Effective Communication Ability Comment: pt using cell phone to translate Communication Tools: Other [employer]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 Beliefs That Will Affect Care: None marital status: Current Living Situation: Family current occupational status: employed Feels Safe at Home: Yes Assistive Devices: None Review of Systems Review of Systems: As per HPI, all other systems reviewed and negative Physical Exam Physical Exam: GENERAL: uncomfortable, respiratory distress, chronically ill SKIN: Pallor, warm HEENT: alopecia, bespectacled, pale palpebral conjunctivae, no ptosis, dry buccal mucosa, nasal cannula in place NECK : Supple, no tenderness CHEST : Decreased breath sounds, no tenderness HEART : RRR, no obvious murmurs ABDOMEN: Some distention, nontender EXTREMITIES : Minimal LE swelling, no LE tenderness, no other conspicuous deformities noted NEUROLOGIC : Coherent, no facial asymmetry, no other gross focality Results & Data Results & Data Vital Signs (Past 12 Hours) Vital Signs Temp Pulse Resp BP Pulse Ox O2 Del Method O2 Flow Rate 06/12/23 03:55 73 179/113 H 06/12/23 03:45 84 36 H 178/115 H 06/12/23 03:37 90 27 H 178/108 H 06/12/23 03:30 92 H 32 H 06/12/23 03:15 91 H 46 H 94 06/12/23 03:10 93 H 184/104 H 06/12/23 03:00 92 H 26 H 92 06/12/23 02:45 95 H 26 H 93 06/12/23 02:30 95 H 38 H 06/12/23 02:27 94 Nasal Cannula 06/12/23 02:21 97 H 40 H 90 06/12/23 02:20 88 L Room Air, Nasal Cannula 0 06/12/23 02:20 38.0 C H 93 H 20 184/101 H 91 Nasal Cannula 4 06/12/23 02:20 Nasal Cannula 2 06/12/23 02:20 100 H Laboratory Results Laboratory Results WBC 14.33 K/ul (4.8-10.8) H 06/12/23 03:03 RBC 3.25 M/uL (4.70-6.10) L 06/12/23 03:03 Hgb 9.6 g/dl (14.0-18.0) L 06/12/23 03:03 Hct 30.2 % (42.0-52.0) L 06/12/23 03:03 MCV 92.9 fL (80.0-100.0) 06/12/23 03:03 MCH 29.5 pg (25.0-34.0) 06/12/23 03:03 MCHC 31.8 g/dL (32.0-36.0) L 06/12/23 03:03 RDW Std Deviation 54.1 fL (36.4-46.3) H 06/12/23 03:03 RDW Coeff of Diamond 15.9 % (11.5-14.5) H 06/12/23 03:03 Plt Count 298 K/uL (130-400) 06/12/23 03:03 MPV 10.8 fL (9.4-12.4) 06/12/23 03:03 Immature Gran % (Auto) 0.6 % 06/12/23 03:03 Neut % (Auto) 81.2 % 06/12/23 03:03 Lymph % (Auto) 8.3 % 06/12/23 03:03 York % (Auto) 9.2 % 06/12/23 03:03 Eos % (Auto) 0.4 % 06/12/23 03:03 Baso % (Auto) 0.3 % 06/12/23 03:03 Neut # (Auto) 11.64 K/uL (1.40-6.50) H 06/12/23 03:03 Lymph # (Auto) 1.19 K/uL (1.20-3.40) L 06/12/23 03:03 York # (Auto) 1.32 K/uL (0.11-0.59) H 06/12/23 03:03 Eos # (Auto) 0.06 K/uL (0.00-0.50) 06/12/23 03:03 Baso # (Auto) 0.04 K/uL (0.00-0.20) 06/12/23 03:03 Immature Gran # (Auto) 0.08 K/uL (0.01-0.20) 06/12/23 03:03 ABG pH 7.44 (7.35-7.45) 06/12/23 03:28 ABG pCO2 38 mmHg (35-46) 06/12/23 03:28 ABG pO2 54 mmHg (80-95) L 06/12/23 03:28 ABG HCO3 26 mmol/L (19-24) H 06/12/23 03:28 ABG O2 Saturation 84.8 % (90-95) L 06/12/23 03:28 ABG Base Excess 1.7 mEq/L (-9-1.8) 06/12/23 03:28 Dharmesh Test Pos (Pos) 06/12/23 03:28 Oxygen Given 2L 06/12/23 03:28 Sodium 142 mmol/L (136-145) 06/12/23 03:03 Potassium 6.4 mmol/L (3.5-5.1) H* 06/12/23 03:03 Chloride 99 mmol/L (98-107) 06/12/23 03:03 Carbon Dioxide 25 mmol/L (21-32) 06/12/23 03:03 Anion Gap 18 (3-11) H 06/12/23 03:03 BUN 119 mg/dl (6-23) H 06/12/23 03:03 Creatinine 13.35 mg/dl (0.6-1.4) H* 06/12/23 03:03 Est Cr Clr Drug Dosing 5.1 ml/min 06/12/23 03:03 Est GFR ( Amer) 3.9 ml/min 06/12/23 03:03 Est GFR (Non-Af Amer) 3.4 ml/min 06/12/23 03:03 BUN/Creatinine Ratio 8.9 (10-20) L 06/12/23 03:03 Glucose 71 mg/dl (70-99(Fasting)) 06/12/23 03:03 Lactate 0.9 mmol/L (0.4-2.0) 06/12/23 03:03 Calcium 9.5 mg/dl (8.6-10.3) 06/12/23 03:03 Magnesium 2.3 mg/dl (1.7-2.4) 06/12/23 03:03 Total Bilirubin 0.9 mg/dl (0.2-1.0) 06/12/23 03:03 Direct Bilirubin 0.2 mg/dl (0-0.2) 06/12/23 03:03 AST 15 U/L (13-39) 06/12/23 03:03 ALT 15 U/L (7-52) 06/12/23 03:03 Alkaline Phosphatase 59 U/L (34-104) 06/12/23 03:03 B-Natriuretic Peptide > 4700 pg/ml (0-100) H 06/12/23 03:03 Total Protein 6.1 gm/dl (6.0-8.3) 06/12/23 03:03 Albumin 3.5 gm/dl (3.4-5.0) 06/12/23 03:03 Adenovirus (PCR) Not Detected (NotDetected) 06/12/23 00:31 B. pertussis DNA (PCR) Not Detected (NotDetected) 06/12/23 00:31 B.parapertussis DNA PCR Not Detected (NotDetected) 06/12/23 00:31 C. pneumoniae DNA (PCR) Not Detected (NotDetected) 06/12/23 00:31 Coronavirus OC43 (PCR) Not Detected (NotDetected) 06/12/23 00:31 Coronavirus HKU1 (PCR) Not Detected (NotDetected) 06/12/23 00:31 Coronavirus 229E (PCR) Not Detected (NotDetected) 06/12/23 00:31 SARS-CoV-2 (PCR) Not Detected (NotDetected) 06/12/23 00:31 Coronavirus NL63 (PCR) Not Detected (NotDetected) 06/12/23 00:31 Human Metapneumovir PCR Not Detected (NotDetected) 06/12/23 00:31 Influenza Type A (PCR) Not Detected (NotDetected) 06/12/23 00:31 Influenza Type B (PCR) Not Detected (NotDetected) 06/12/23 00:31 M. pneumoniae (PCR) Not Detected (NotDetected) 06/12/23 00:31 Parainfluenza 1 (PCR) Not Detected (NotDetected) 06/12/23 00:31 Parainfluenza 2 (PCR) Not Detected (NotDetected) 06/12/23 00:31 Parainfluenza 3 (PCR) Not Detected (NotDetected) 06/12/23 00:31 Parainfluenza 4 (PCR) Not Detected (NotDetected) 06/12/23 00:31 RSV (PCR) Not Detected (NotDetected) 06/12/23 00:31 Entero/Rhino (PCR) Not Detected (NotDetected) 06/12/23 00:31 Diagnostic Findings Chest x-ray as per my interpretation, cardiomegaly, congestion, bibasilar infiltrates EKG as per my interpretation : Rate 95, NSR, LAD, LAFB, ST depression lateral leads, peaked T waves
[2023-06-12] MEDS ORDERED: DEXTROSE 50% 50 ML SYRINGE IV ONE (04:10)
[2023-06-12] MEDS ORDERED: NovoLIN-R INSULIN PER UNIT CHARGE IV STA (04:12)
[2023-06-12] MEDS ORDERED: DEXTROSE 50% 50 ML SYRINGE IV STA (04:12)
[2023-06-12] MEDS ORDERED: PATIROMER CALCIUM SORBITEX 8.4 GM PACK PO STA (04:18)
[2023-06-12] MEDS ORDERED: traMADol HCL 50 MG TABLET PO PRN (04:19)
[2023-06-12] MEDS ORDERED: PROMETHAZINE HCL 6.25 MG in SODIUM CHLORIDE 0.9% 50 ML IV PRN (04:19)
--- NOTE | 2023-06-12 04:38 | Emergency Department Note ---
ED Visit Note I was consulted by the Advanced Practice Provider. I performed a substantive portion of the visit. This includes the aspects of: -MDM -Disposition/plan .
[2023-06-12 04:41] LABS: Troponin I High Sensitivity 426.2 pg/ml (0-20)
[2023-06-12] MEDS: SODIUM ZIRCONIUM CYCLOSILICATE 10 GM PACKET PO ONE ×2 (05:48→06:01)
[2023-06-12] MEDS: ISOSORBIDE DINITRATE 20 MG TAB PO STA ×2 (05:48→06:01)
[2023-06-12 05:50] LABS: Troponin I High Sensitivity 390.3 pg/ml (0-20)
[2023-06-12] MEDS ORDERED: ACETAMINOPHEN 325 MG TAB PO PRN (06:04)
[2023-06-12] MEDS ORDERED: amLODIPine BESYLATE 5 MG TAB PO STA (06:37)
--- NOTE | 2023-06-12 06:56 | CT Scan Report ---
CT chest diagnostic wo con CT DOSE: 399.23 mGy.cm HISTORY: Shortness of breath. cough TECHNIQUE: Multiaxial CT images of the chest were performed without contrast. A dose lowering techni que was utilized adhering to the principles of ALARA. COMPARISON: Chest CT 02/01/2023. FINDINGS: The central airways are patent. No pneumothorax. Small to moderate bilateral pleural effusi ons are again noted. There is interlobular septal thickening consistent with mild interstitial pulmon adelia edema. Groundglass densities within the lungs posteriorly favor dependent change/atelectasis. The re are areas of focal consolidation within the bases of the bilateral lower lobes, right middle lobe, and lingula which demonstrate a rounded appearance. This favors a combination of compressive and rou nd atelectasis. These have slightly progressed compared to the prior CT examination. A superimposed p neumonia or underlying pulmonary lesion would be difficult to exclude. No acute fractures identified. Mild body wall edema. The heart remains enlarged. There are no pericardial effusions. Normal esophag us. Mild calcified plaque within the normal caliber thoracic aorta. There are severe coronary artery calcifications noted. The main pulmonary artery is mildly dilated up to 3.9 cm. This is consistent wi th underlying pulmonary arterial hypertension. There is mild mediastinal lymphadenopathy which is sli ghtly progressed in the interval. There are calcified bilateral hilar lymph nodes. Suggestion of a ri ght suprahilar lymph node which is new from the prior study and measures 1.7 cm. This is best seen on image 94. This could represent a distended pulmonary vessel but is difficult to assess on this nonco ntrast study. Limited views of the upper abdomen demonstrate normal liver, spleen, and adrenal glands . IMPRESSION: 1. Cardiomegaly with pulmonary edema and small to moderate bilateral pleural effusions. 2. Bibasilar consolidation has a somewhat rounded appearance and likely represents a combination of c ompressive and round atelectasis from the chronic pleural effusions. A superimposed pneumonia or unde rlying pulmonary lesion would be difficult to exclude. Follow-up recommended. 3. Pulmonary arterial hypertension. 4. Mild mediastinal lymphadenopathy which has slightly progressed. There is also suggestion of a sing le right suprahilar lymph node which is enlarged. 3 month follow-up recommended to ensure resolution. 5. Additional findings as described above. ACT 112: Negative or not required by law. Electronically signed by: Eddy Jacobsen M.D. 06/12/2023 6:54 AM
[2023-06-12 07:21] LABS: Potassium 6.6 mmol/L (3.5-5.1)
--- NOTE | 2023-06-12 07:41 | Pulmonary Consultation ---
Date of Consultation June 12, 2023 Assessment & Plan (1) Medically noncompliant: (2) Recurrent pleural effusion: (3) ESRD (end stage renal disease) on dialysis: (4) HFrEF (heart failure with reduced ejection fraction): (5) Hypoxia: (6) SOB (shortness of breath): Plan IMPRESSION: 67-year-old male with a significant past medical history of end- stage renal disease on hemodialysis Monday/Monday/Monday with associated heart failure with reduced ejection fraction who has been admitted on multiple occasions with recurrent pleural effusion in the setting of medical noncompliance with his hemodialysis as well as diet. Patient presents today with acute hypoxic respiratory failure in the setting of pleural effusions after skipping dialysis on Monday. RECOMMENDATIONS: 1. Medically noncompliant - This remains the root driving because the patient's underlying medical conditions to be discussed further. The patient has been seen and evaluated extensively for his recurrent pleural effusions including evaluation at thoracic surgery at [place]. Patient was felt not to be a candidate for pleurodesis given his underlying causes of the effusion and risk for recurrence. He has had multiple thoracentesis and most recently, including a office visit on 05/25/2023, there was an additional conversation utilizing seismic interpreter services to discuss standing order for as needed thoracentesis for symptom management. Again, this was discussed with the patient at great length in addition to reviewing the utility of staying consistent with his scheduled hemodialysis. Unfortunately, the patient had missed his hemodialysis on Monday and developed worsening symptoms of cough and shortness of breath yesterday which prompted return visit to the emergency room. 2. Recurrent pleural effusion - As extensively discussed during prior admissions. Patient's pulmonary status is secondary to his underlying conditions of stage renal disease, medical noncompliance, and heart failure. It would be best if the patient is maximized and compliant with his ongoing therapies as this would alleviate the recurrent episodes of effusions. Despite his ongoing therapies, he does have a standing order that was placed by myself during last admission for monthly assessment for thoracentesis. This was extensively reviewed with the patient at great length during multiple visits. At this point, we would recommend the patient undergo hemodialysis today. If the patient is still requiring supplemental oxygen after dialysis, would recommend consulting interventional radiology for paracentesis as has been done previously. CT scan was performed and reviewed which showed no consolidative process at this time. The patient does have a low-grade fever, however discussion with him, he reports no new sequela of upper respiratory symptoms or worsening cough at this time. Question utility of antibiotic coverage, but will defer to the patient's primary service moving forward. 3. End-stage renal disease on hemodialysis - Encourage patient to continue with his dialysis as directed by nephrology. 4. Heart failure with reduced ejection fraction - As managed by his javascript ui developer and supply chain intern. 5. Hypoxia - Secondary to #2. 6. Shortness of breath - Again, secondary to #2. Thank you for allowing us to participate in the care of this patient. Pulmonary medicine will sign off at this time. Supervising Physician Co-Signing Physician Notes Pt well known to pulm service. Recurrent pleural effusions due to medical non compliance with HD. No indication for indwelling pleural cath as patients non c ompliance makes this unfeasable. Continue serial thoracentesis by IR which has been set up as outpatient. Recommend HD as inpt and if effusions persist, contact IR this hospitalization for thora. Can have serial Q2 wk thora with IR. No additional recommendations. Pulm will sign off. History of Present Illness Reason for Consultation: resp failure, recurrent pleural effusions Requesting Physician: Dr. De Los Santos Attending Physician: Alyse Baxter MD History of Present Illness Patient is a 67-year-old male with a significant past medical history of end- stage renal disease on hemodialysis, heart failure with reduced ejection fraction, paroxysmal a flutter, hypertension, hyperlipidemia, and recurrent pleural effusions with frequent hospitalizations related to recurrent pleural effusions with hypoxia and respiratory failure in the setting of medical noncompliance. Patient had previously been extensively evaluated. He has had multiple thoracentesis in the past. The patient was evaluated by thoracic surgery at [place] who did not feel that pleurodesis was necessary or appropriate at this time. During last hospitalization and subsequent hospital follow-up, pulmonary service coordinated and extensively communicated a standing order for serial thoracentesis to be performed at least every month in the event that the patient has changing or worsening symptoms. Per ED documents, patient missed his HD on Monday. He presented to the ED with complaints of increasing shortness of breath. Through the use of the patient's preferred personal seismic interpreter device on his phone, I was able to communicate with him that he has had shortness of breath for the last 24 hours. He feels as though it is related to missing his dialysis. He feels better since coming to the hospital. He states that this feels the same as prior admissions. He offers no new or changing symptoms at this time other than dyspnea with exertion. Allergies Allergy/AdvReac Type Severity Reaction Status Date / Time No Known Allergies Allergy Verified 03/26/23 12:21 Home Medications Medication Instructions Recorded Confirmed Type cinacalcet 30 mg tablet (Sensipar) 30 mg PO DAILY 08/19/22 06/12/23 History gabapentin 100 mg capsule 100 mg PO 3XWK 03/26/23 06/12/23 History allopurinol 100 mg tablet 50 mg (1/2 x 100 mg) PO DAILY #30 03/28/23 06/12/23 Rx tabs aspirin 81 mg tablet,delayed 81 mg PO QAM #30 tabs 03/28/23 06/12/23 Rx release atorvastatin 40 mg tablet 40 mg PO HS #30 tabs 03/28/23 06/12/23 Rx hydralazine 100 mg tablet 100 mg PO TID #90 tabs 03/28/23 06/12/23 Rx isosorbide dinitrate 20 mg tablet 20 mg PO TID@0700,1200,1700 #90 03/28/23 06/12/23 Rx tabs losartan 50 mg tablet (Cozaar) 50 mg PO AMHS #30 tabs 03/28/23 06/12/23 Rx metoprolol succinate 50 mg 100 mg (2 x 50 mg) PO QDD #60 tabs 03/28/23 06/12/23 Rx tablet,extended release 24 hr sevelamer carbonate 800 mg tablet 800 mg PO TIDM #90 tabs 03/28/23 06/12/23 Rx ergocalciferol (vitamin D2) 1,250 1,250 mcg PO WK 04/15/23 06/12/23 History mcg (50,000 unit) capsule (Vitamin D2) RenaPlex 1 tab PO DAILY 06/12/23 06/12/23 History amlodipine 10 mg tablet 10 mg PO DAILY 06/12/23 06/12/23 History ferric citrate 210 mg iron tablet 420 mg PO .WITH MEALS & SNACKS 06/12/23 06/12/23 History (Auryxia) patiromer calcium sorbitex 16.8 16.8 g PO QAM 06/12/23 06/12/23 History gram oral powder packet (Veltassa) Patient History Medical History Palliative care encounter Recurrent pleural effusion Chest pain Acute respiratory failure with hypoxia Hypoxia Hypervolemia SOB (shortness of breath) Heart failure with acute decompensation, type unknown Acute hypoxemic respiratory failure Anemia of chronic disease Fluid overload Pleural effusion chronic, recurrent Hyperkalemia Symptomatic anemia Anemia Acute upper gastrointestinal bleeding ESRD (end stage renal disease) on dialysis HD patient follows w/ [facility] 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 AV fistula Kidney transplant candidate reason for colonoscopy to get on list Hypertension Restless leg syndrome Nephrolithiasis Benign prostatic hyperplasia with urinary obstruction Surgical History History of colonoscopy H/O inguinal hernia repair History of cystoscopy Status post creation of arteriovenous fistula left arm History of tooth extraction History of thoracentesis Family History Other No family history of adverse response to anesthesia No significant family history Social History Smoking Status: Never smoker Tobacco Type: Cigarettes Second Hand Exposure: No; Do You Dip or Chew Tobacco: No; Hx Alcohol Use: No Hx Substance Use: No Preferred Language: Moroccan Communication Ability: Effective Communication Ability Comment: pt using cell phone to translate Communication Tools: Other Supervising Broker Required: Yes Beliefs That Will Affect Care: None marital status: Current Living Situation: Family current occupational status: employed Feels Safe at Home: Yes Assistive Devices: None Review of Systems Review of Systems: A complete 10 point review of systems was reviewed with the patient with pertinent positives and negatives as per history of present illness. All else were negative. Physical Exam Physical Exam: VITAL SIGNS - Vital signs and nursing notes were reviewed. GENERAL - 67-year-old male appearing his stated age who is in no acute distress. Communicates well with provider and answers questions appropriately. SKIN - Without rashes or lesions. NOSE - Midline and without cyanosis. MOUTH/OROPHARYNX - Without perioral cyanosis. NECK - Neck with FROM. LUNGS - Chest wall evaluation demonstrates a normal chest wall A:P diameter. Auscultation reveals diminished breath sounds at the bases with slight crackles. CARDIAC - RRR with S1/S2. No murmur, rubs, or gallops appreciated. ABDOMEN - Abdominal inspection demonstrates flat. BS normoactive all four quadrants. No tenderness, palpable masses, or ascites noted. EXTREMITIES - Nail clubbing not present. No peripheral cyanosis. No pretibial edema present. LUE fistula in place. +3/5 radial palpated throughout. PSYCH - A&Ox3 and cooperates fully with examiner. Pt is very pleasant and interacts well with examiner. Results & Data Results & Data Vital Signs (Past 12 Hours) Vital Signs Temp Pulse Resp BP Pulse Ox Pulse Ox O2 Del Method 06/12/23 07:18 94 06/12/23 07:15 76 20 163/88 H 94 06/12/23 07:00 88 27 H 159/104 H 06/12/23 06:45 80 22 139/79 93 06/12/23 06:30 93 H 20 143/79 H 94 06/12/23 06:15 88 21 133/72 93 06/12/23 06:08 86 06/12/23 06:01 89 23 168/110 H 93 06/12/23 06:00 91 H 28 H 94 06/12/23 05:46 82 23 170/100 H 06/12/23 05:45 92 H 28 H 92 06/12/23 05:40 85 34 H 173/101 H 94 06/12/23 05:15 87 19 135/88 94 06/12/23 05:00 95 H 37 H 174/88 H 06/12/23 04:45 79 31 H 158/92 H 91 06/12/23 04:36 90 Nasal Cannula 06/12/23 04:30 79 36 H 160/96 H 91 06/12/23 04:15 83 30 H 165/93 H 96 06/12/23 04:00 72 22 161/98 H 95 06/12/23 03:55 73 179/113 H 06/12/23 03:45 84 36 H 178/115 H 06/12/23 03:37 90 27 H 178/108 H 06/12/23 03:30 92 H 32 H 06/12/23 03:15 91 H 46 H 94 06/12/23 03:10 93 H 184/104 H 06/12/23 03:00 92 H 26 H 92 06/12/23 02:45 95 H 26 H 93 06/12/23 02:30 95 H 38 H 06/12/23 02:27 94 Nasal Cannula 06/12/23 02:21 97 H 40 H 90 06/12/23 02:20 88 L Room Air, Nasal Cannula 06/12/23 02:20 38.0 C H 93 H 20 184/101 H 91 Nasal Cannula 06/12/23 02:20 Nasal Cannula 06/12/23 02:20 100 H O2 Del Method O2 Flow Rate O2 Flow Rate 06/12/23 07:18 Nasal Cannula 5 06/12/23 07:15 06/12/23 07:00 06/12/23 06:45 06/12/23 06:30 06/12/23 06:15 06/12/23 06:08 06/12/23 06:01 06/12/23 06:00 06/12/23 05:46 06/12/23 05:45 06/12/23 05:40 06/12/23 05:15 06/12/23 05:00 06/12/23 04:45 06/12/23 04:36 5 06/12/23 04:30 06/12/23 04:15 06/12/23 04:00 06/12/23 03:55 06/12/23 03:45 06/12/23 03:37 06/12/23 03:30 06/12/23 03:15 06/12/23 03:10 06/12/23 03:00 06/12/23 02:45 06/12/23 02:30 06/12/23 02:27 06/12/23 02:21 06/12/23 02:20 0 06/12/23 02:20 4 06/12/23 02:20 2 06/12/23 02:20 PG Care Time/CCT Total # of Minutes Spent Total Time Spent with Patient: Total time spent is greater than 50% in coordination of care (as documented) at patient's floor/unit and/or counseling patient: Coding Level of Care Code 71884 INT INP/OBS CARE 3/75MIN Diagnoses Medically noncompliant Z91.199 Recurrent pleural effusion J90 ESRD (end stage renal disease) on dialysis N18.6; Z99.2 HFrEF (heart failure with reduced ejection fraction) I50.20 Hypoxia R09.02 SOB (shortness of breath) R06.02
--- NOTE | 2023-06-12 07:45 | XRay Report ---
XR chest 1V portable HISTORY: Sepsis COMPARISON: Chest 06/12/2023. FINDINGS: No pneumothorax. The cardiac silhouette remains enlarged. Small right and moderate left ple ural effusions with bibasilar densities are again noted. There is interstitial/vascular thickening co nsistent with moderate pulmonary edema. No acute fractures identified. IMPRESSION: 1. Cardiomegaly, moderate pulmonary edema, and bilateral pleural effusions. 2. Bibasilar densities may represent atelectasis or a pneumonia. ACT 112: Negative or not required by law. Electronically signed by: Eddy Jacobsen M.D. 06/12/2023 7:44 AM
[2023-06-12] MEDS: CEFEPIME 1,000 MG in SYRINGE 0 ML IV SCH (08:07)
[2023-06-12] MEDS: AURYXIA~ORDER AWAITING ACTION SCH ×3 (08:08→23:01)
[2023-06-12] MEDS: HEPARIN SOD 5,000 UNIT/0.5 ML VIAL SQ SCH ×3 (08:10→21:39)
[2023-06-12] MEDS: SEVELAMER HCL 800 MG TABLET PO SCH ×3 (08:11→18:06)
[2023-06-12] MEDS: DOXYCYCLINE HYCLATE 100 MG CAP PO SCH ×2 (08:12→21:39)
[2023-06-12] MEDS: allopurinoL 100 MG TAB PO SCH (08:12)
[2023-06-12] MEDS: ASPIRIN 81 MG ECTAB PO SCH (08:12)
[2023-06-12] MEDS: hydrALAZINE TAB 50 MG TAB PO SCH ×3 (08:13→21:39)
[2023-06-12] MEDS ORDERED: amLODIPine BESYLATE 5 MG TAB PO SCH (09:00)
--- NOTE | 2023-06-12 10:21 | Nephrology Consultation ---
Date of Consultation June 12, 2023 Assessment & Plan (1) Acute hypoxemic respiratory failure: In the setting of fluid overload/pneumonia with fever and also recurrent pleural effusion (2) ESRD (end stage renal disease) on dialysis: Patient is a chronic dialysis patient Monday as an in center hemodialysis through his AV fistula. However he did miss dialysis on Monday which means his last dialysis was almost 5 days ago. He does not make urine anymore and has tendency of developing pulmonary edema with symptoms easily. He is clearly short of breath and needs dialysis. We will do for 4 hours on a 2K bath and try to take as much fluid as we are allowed by the patient. In the past he does dictate how much fluid we can remove and also the time duration of the dialysis. (3) Recurrent pleural effusion: This has been an ongoing issue and he is followed closely by pulmonary and gets serial thoracocentesis. He has already evaluated by pulmonary at [facility] and was felt not a candidate for pleurodesis (4) Pneumonia: As per primary team. Given presence of fever reasonable to give him antibiotic History of Present Illness Reason for Consultation: ESRD on HD with high K and SOB after missing Dialysis Attending Physician: Mike Canales MD History of Present Illness 67/M with end-stage renal disease on hemodialysis, heart failure with reduced ejection fraction, paroxysmal a flutter and recurrent pleural effusions with frequent hospitalizations for same. he gets hypoxia and respiratory failure in the setting of medical noncompliance and worsened pleural effusion. Patient had previously been extensively evaluated. He has had multiple thoracentesis in the past. The patient was evaluated by thoracic surgery at [place] who did not feel that pleurodesis was necessary or appropriate at this time. Currently has a standing order for serial thoracentesis to be performed at least every month if symptoms. Patient missed his HD on Monday. He presented to the ED with complaints of increasing shortness of breath. His potassium was high at 6.6 and he does have evidence of fluid overload and is getting dialysis at this moment. Review of system-----as detailed in HPI and includes positive shortness of breath orthopnea cough. There is also some low-grade fever. Otherwise 12 system reviewed and negative Physical Exam GENERAL - no acute distress. . SKIN - Without rashes or lesions. MOUTH/OROPHARYNX - MM moist. Neck is supple no jugular venous distention LUNGS - diminished breath sounds at the bases with slight crackles. CARDIAC - RRR with S1/S2. No murmur, rubs, or gallops appreciated. ABDOMEN -soft nontender EXTREMITIES -trace edema. LUE fistula in place. Allergies Allergy/AdvReac Type Severity Reaction Status Date / Time No Known Allergies Allergy Verified 03/26/23 12:21 Home Medications Medication Instructions Recorded Confirmed Type cinacalcet 30 mg tablet (Sensipar) 30 mg PO DAILY 08/19/22 06/12/23 History gabapentin 100 mg capsule 100 mg PO 3XWK 03/26/23 06/12/23 History allopurinol 100 mg tablet 50 mg (1/2 x 100 mg) PO DAILY #30 03/28/23 06/12/23 Rx tabs aspirin 81 mg tablet,delayed 81 mg PO QAM #30 tabs 03/28/23 06/12/23 Rx release atorvastatin 40 mg tablet 40 mg PO HS #30 tabs 03/28/23 06/12/23 Rx hydralazine 100 mg tablet 100 mg PO TID #90 tabs 03/28/23 06/12/23 Rx isosorbide dinitrate 20 mg tablet 20 mg PO TID@0700,1200,1700 #90 03/28/23 Rx tabs losartan 50 mg tablet (Cozaar) 50 mg PO AMHS #30 tabs 03/28/23 06/12/23 Rx metoprolol succinate 50 mg 100 mg (2 x 50 mg) PO QDD #60 tabs 03/28/23 06/12/23 Rx tablet,extended release 24 hr sevelamer carbonate 800 mg tablet 800 mg PO TIDM #90 tabs 03/28/23 06/12/23 Rx ergocalciferol (vitamin D2) 1,250 1,250 mcg PO WK 04/15/23 06/12/23 History mcg (50,000 unit) capsule (Vitamin D2) RenaPlex 1 tab PO DAILY 06/12/23 06/12/23 History amlodipine 10 mg tablet 10 mg PO DAILY 06/12/23 06/12/23 History ferric citrate 210 mg iron tablet 420 mg PO .WITH MEALS & SNACKS 06/12/23 06/12/23 History (Auryxia) patiromer calcium sorbitex 16.8 16.8 g PO QAM 06/12/23 06/12/23 History gram oral powder packet (Veltassa) Patient History Medical History Palliative care encounter Recurrent pleural effusion Chest pain Acute respiratory failure with hypoxia Hypoxia Hypervolemia SOB (shortness of breath) Heart failure with acute decompensation, type unknown Acute hypoxemic respiratory failure Anemia of chronic disease Fluid overload Pleural effusion chronic, recurrent Hyperkalemia Symptomatic anemia Anemia Acute upper gastrointestinal bleeding ESRD (end stage renal disease) on dialysis HD patient follows w/ [facility] 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 AV fistula Kidney transplant candidate reason for colonoscopy to get on list Hypertension Restless leg syndrome Nephrolithiasis Benign prostatic hyperplasia with urinary obstruction Surgical History History of colonoscopy H/O inguinal hernia repair History of cystoscopy Status post creation of arteriovenous fistula left arm History of tooth extraction History of thoracentesis Family History Other No family history of adverse response to anesthesia No significant family history Social History Smoking Status: Never smoker Tobacco Type: Cigarettes Second Hand Exposure: No; Do You Dip or Chew Tobacco: No; Hx Alcohol Use: No Hx Substance Use: No Preferred Language: Chinese Communication Ability: Effective Communication Ability Comment: pt using cell phone to translate Communication Tools: Other Pail Bailer Required: Yes Beliefs That Will Affect Care: None marital status: Current Living Situation: Family current occupational status: employed Feels Safe at Home: Yes Assistive Devices: None Results & Data Vital Signs (Past 12 Hours) Vital Signs Temp Pulse Resp BP Pulse Ox Pulse Ox O2 Del Method 06/12/23 09:00 87 15 125/81 94 Nasal Cannula 06/12/23 08:30 89 20 148/83 H 93 Nasal Cannula 06/12/23 08:01 87 20 162/84 H 94 Nasal Cannula 06/12/23 07:48 93 H 06/12/23 07:45 88 17 157/91 H 95 Nasal Cannula 06/12/23 07:18 94 06/12/23 07:15 76 20 163/88 H 94 06/12/23 07:00 88 27 H 159/104 H 06/12/23 06:45 80 22 139/79 93 06/12/23 06:30 93 H 20 143/79 H 94 06/12/23 06:15 88 21 133/72 93 06/12/23 06:08 86 06/12/23 06:01 89 23 168/110 H 93 06/12/23 06:00 91 H 28 H 94 06/12/23 05:46 82 23 170/100 H 06/12/23 05:45 92 H 28 H 92 06/12/23 05:40 85 34 H 173/101 H 94 06/12/23 05:15 87 19 135/88 94 06/12/23 05:00 95 H 37 H 174/88 H 06/12/23 04:45 79 31 H 158/92 H 91 06/12/23 04:36 90 Nasal Cannula 06/12/23 04:30 79 36 H 160/96 H 91 06/12/23 04:15 83 30 H 165/93 H 96 06/12/23 04:00 72 22 161/98 H 95 06/12/23 03:55 73 179/113 H 06/12/23 03:45 84 36 H 178/115 H 06/12/23 03:37 90 27 H 178/108 H 06/12/23 03:30 92 H 32 H 06/12/23 03:15 91 H 46 H 94 06/12/23 03:10 93 H 184/104 H 06/12/23 03:00 92 H 26 H 92 06/12/23 02:45 95 H 26 H 93 06/12/23 02:30 95 H 38 H 06/12/23 02:27 94 Nasal Cannula 06/12/23 02:21 97 H 40 H 90 06/12/23 02:20 88 L Room Air, Nasal Cannula 06/12/23 02:20 38.0 C H 93 H 20 184/101 H 91 Nasal Cannula 06/12/23 02:20 Nasal Cannula 06/12/23 02:20 100 H O2 Del Method O2 Flow Rate O2 Flow Rate 06/12/23 09:00 06/12/23 08:30 06/12/23 08:01 06/12/23 07:48 06/12/23 07:45 06/12/23 07:18 Nasal Cannula 5 06/12/23 07:15 06/12/23 07:00 06/12/23 06:45 06/12/23 06:30 06/12/23 06:15 06/12/23 06:08 06/12/23 06:01 06/12/23 06:00 06/12/23 05:46 06/12/23 05:45 06/12/23 05:40 06/12/23 05:15 06/12/23 05:00 06/12/23 04:45 06/12/23 04:36 5 06/12/23 04:30 06/12/23 04:15 06/12/23 04:00 06/12/23 03:55 06/12/23 03:45 06/12/23 03:37 06/12/23 03:30 06/12/23 03:15 06/12/23 03:10 06/12/23 03:00 06/12/23 02:45 06/12/23 02:30 06/12/23 02:27 06/12/23 02:21 06/12/23 02:20 0 06/12/23 02:20 4 06/12/23 02:20 2 06/12/23 02:20 Laboratory Results Potassium high at 6.6 imaging reviewed in detail (4) Pneumonia Laterality: unspecified laterality Lung location: unspecified part of lung Pneumonia type: due to unspecified organism Qualified Code(s): J18.9 - Pne umonia, unspecified organism
[2023-06-12] MEDS: ISOSORBIDE DINITRATE 20 MG TAB PO SCH ×2 (14:20→18:05)
[2023-06-12] MEDS: PATIROMER CALCIUM SORBITEX 8.4 GM PACK PO SCH (15:16)
--- NOTE | 2023-06-12 15:16 | Hospitalist Progress Note ---
Date of Service June 12, 2023 Assessment & Plan (1) Acute hypoxemic respiratory failure: Plan: Acute CHF missed dialysis. LAst dialysis 5 days ago. questionable pneumonia.on antibiotics. Pleural effusions recurrent s/p dialysis sob improved . will closely monitor. acute Systolic chf valvular heart disease. improving with dialysis Pleural effusions Plan for IR thoracocentesis if sob doesnt improve appreciate pulmonary inputs. ESRD on HD Nephro on board. Hyperkalemia on veltassa at home received Lokelma insulin and dextrose holding losartan s/p dialysis Elevated troponin mostly from resp distress and esrd trending down HTN, on amlodipine, toprol xl, isosorbide dinitrate,hydralazine holding losartan will monitor. paroxysmal atrial flutter, patient currently NSR on toprol xl. hyperlipidemia, on statin Rx prediabetes, hemoglobin A1c 5.8 2021 chronic anemia, hemoglobin at baseline dvt px hep sub q Disposition to be determined Full code. Admission and Anticipated Discharge Date Admission Date: June 12, 2023 Subjective Sitting in bed comfortably says sob much improved denies chest pain no nausea feeling hungry afebrile just moved his bowels. spoke on patient phone for translation Review of Systems Review of Systems: All systems reviewed & are unremarkable except as noted in HPI & below Physical Exam Physical Exam: General- Not in distress Head- atraumatic Eyes- PERRL. ENT- oropharynx clear Neck- supple, no JVD. Lungs- clear to auscultation no wheezing or crackles. Heart- regular rhythm; no murmur, no gallop. Abdomen- normal bowel sounds, soft, nontender, no distension. Extremities- lower extremity edema present. no erythema seen Neuro- alert, oriented PERRL, no facial palsy; no dysarthria; moves extremities. Skin- warm & dry Results & Data Results & Data Vital Signs (Past 12 Hours) Vital Signs Temp Pulse Pulse Resp BP BP Pulse Ox 06/12/23 14:46 82 20 106/67 95 06/12/23 14:30 82 20 128/83 95 06/12/23 13:45 36.5 C 74 130/73 06/12/23 13:30 74 124/85 06/12/23 13:00 65 123/91 06/12/23 12:30 76 112/87 06/12/23 12:00 55 L 145/78 H 06/12/23 11:30 65 146/70 H 06/12/23 11:00 87 171/93 H 06/12/23 10:30 74 138/91 06/12/23 10:00 79 131/77 06/12/23 09:21 36.2 C L 84 06/12/23 09:00 87 15 125/81 94 06/12/23 08:30 89 20 148/83 H 93 06/12/23 08:01 87 20 162/84 H 94 06/12/23 07:48 93 H 06/12/23 07:45 88 17 157/91 H 95 06/12/23 07:18 06/12/23 07:15 76 20 163/88 H 94 06/12/23 07:00 88 27 H 159/104 H 06/12/23 06:45 80 22 139/79 93 06/12/23 06:30 93 H 20 143/79 H 94 06/12/23 06:15 88 21 133/72 93 06/12/23 06:08 86 06/12/23 06:01 89 23 168/110 H 93 06/12/23 06:00 91 H 28 H 94 06/12/23 05:46 82 23 170/100 H 06/12/23 05:45 92 H 28 H 92 06/12/23 05:40 85 34 H 173/101 H 94 06/12/23 05:15 87 19 135/88 94 06/12/23 05:00 95 H 37 H 174/88 H 06/12/23 04:45 79 31 H 158/92 H 91 06/12/23 04:36 90 06/12/23 04:30 79 36 H 160/96 H 91 06/12/23 04:15 83 30 H 165/93 H 96 06/12/23 04:00 72 22 161/98 H 95 06/12/23 03:55 73 179/113 H 06/12/23 03:45 84 36 H 178/115 H 06/12/23 03:37 90 27 H 178/108 H 06/12/23 03:30 92 H 32 H Pulse Ox O2 Del Method O2 Del Method O2 Flow Rate O2 Flow Rate 06/12/23 14:46 Nasal Cannula 06/12/23 14:30 Nasal Cannula 06/12/23 13:45 06/12/23 13:30 06/12/23 13:00 06/12/23 12:30 06/12/23 12:00 06/12/23 11:30 06/12/23 11:00 06/12/23 10:30 06/12/23 10:00 06/12/23 09:21 06/12/23 09:00 Nasal Cannula 06/12/23 08:30 Nasal Cannula 06/12/23 08:01 Nasal Cannula 06/12/23 07:48 06/12/23 07:45 Nasal Cannula 06/12/23 07:18 94 Nasal Cannula 5 06/12/23 07:15 06/12/23 07:00 06/12/23 06:45 06/12/23 06:30 06/12/23 06:15 06/12/23 06:08 06/12/23 06:01 06/12/23 06:00 06/12/23 05:46 06/12/23 05:45 06/12/23 05:40 06/12/23 05:15 06/12/23 05:00 06/12/23 04:45 06/12/23 04:36 Nasal Cannula 5 06/12/23 04:30 06/12/23 04:15 06/12/23 04:00 06/12/23 03:55 06/12/23 03:45 06/12/23 03:37 06/12/23 03:30 Diagnostic Findings Laboratory Results WBC 14.33 K/ul (4.8-10.8) H 06/12/23 03:03 RBC 3.25 M/uL (4.70-6.10) L 06/12/23 03:03 Hgb 9.6 g/dl (14.0-18.0) L 06/12/23 03:03 Hct 30.2 % (42.0-52.0) L 06/12/23 03:03 MCV 92.9 fL (80.0-100.0) 06/12/23 03:03 MCH 29.5 pg (25.0-34.0) 06/12/23 03:03 MCHC 31.8 g/dL (32.0-36.0) L 06/12/23 03:03 RDW Std Deviation 54.1 fL (36.4-46.3) H 06/12/23 03:03 RDW Coeff of Diamond 15.9 % (11.5-14.5) H 06/12/23 03:03 Plt Count 298 K/uL (130-400) 06/12/23 03:03 MPV 10.8 fL (9.4-12.4) 06/12/23 03:03 Immature Gran % (Auto) 0.6 % 06/12/23 03:03 Neut % (Auto) 81.2 % 06/12/23 03:03 Lymph % (Auto) 8.3 % 06/12/23 03:03 [place] % (Auto) 9.2 % 06/12/23 03:03 Eos % (Auto) 0.4 % 06/12/23 03:03 Baso % (Auto) 0.3 % 06/12/23 03:03 Neut # (Auto) 11.64 K/uL (1.40-6.50) H 06/12/23 03:03 Lymph # (Auto) 1.19 K/uL (1.20-3.40) L 06/12/23 03:03 [place] # (Auto) 1.32 K/uL (0.11-0.59) H 06/12/23 03:03 Eos # (Auto) 0.06 K/uL (0.00-0.50) 06/12/23 03:03 Baso # (Auto) 0.04 K/uL (0.00-0.20) 06/12/23 03:03 Immature Gran # (Auto) 0.08 K/uL (0.01-0.20) 06/12/23 03:03 ABG pH 7.44 (7.35-7.45) 06/12/23 03:28 ABG pCO2 38 mmHg (35-46) 06/12/23 03:28 ABG pO2 54 mmHg (80-95) L 06/12/23 03:28 ABG HCO3 26 mmol/L (19-24) H 06/12/23 03:28 ABG O2 Saturation 84.8 % (90-95) L 06/12/23 03:28 ABG Base Excess 1.7 mEq/L (-9-1.8) 06/12/23 03:28 Dharmesh Test Pos (Pos) 06/12/23 03:28 Oxygen Given 2L 06/12/23 03:28 Sodium 142 mmol/L (136-145) 06/12/23 03:03 Potassium 6.6 mmol/L (3.5-5.1) H* 06/12/23 05:00 Chloride 99 mmol/L (98-107) 06/12/23 03:03 Carbon Dioxide 25 mmol/L (21-32) 06/12/23 03:03 Anion Gap 18 (3-11) H 06/12/23 03:03 BUN 119 mg/dl (6-23) H 06/12/23 03:03 Creatinine 13.35 mg/dl (0.6-1.4) H* 06/12/23 03:03 Est Cr Clr Drug Dosing 5.1 ml/min 06/12/23 03:03 Est GFR ( Amer) 3.9 ml/min 06/12/23 03:03 Est GFR (Non-Af Amer) 3.4 ml/min 06/12/23 03:03 BUN/Creatinine Ratio 8.9 (10-20) L 06/12/23 03:03 Glucose 71 mg/dl (70-99(Fasting)) 06/12/23 03:03 Lactate 0.9 mmol/L (0.4-2.0) 06/12/23 03:03 Calcium 9.5 mg/dl (8.6-10.3) 06/12/23 03:03 Magnesium 2.3 mg/dl (1.7-2.4) 06/12/23 03:03 Total Bilirubin 0.9 mg/dl (0.2-1.0) 06/12/23 03:03 Direct Bilirubin 0.2 mg/dl (0-0.2) 06/12/23 03:03 AST 15 U/L (13-39) 06/12/23 03:03 ALT 15 U/L (7-52) 06/12/23 03:03 Alkaline Phosphatase 59 U/L (34-104) 06/12/23 03:03 Troponin I High Sens 390.3 pg/ml (0-20) H* 06/12/23 05:00 B-Natriuretic Peptide > 4700 pg/ml (0-100) H 06/12/23 03:03 Total Protein 6.1 gm/dl (6.0-8.3) 06/12/23 03:03 Albumin 3.5 gm/dl (3.4-5.0) 06/12/23 03:03 Procalcitonin 0.66 ng/ml (0-0.5) H 06/12/23 03:03 Nasal Screen MRSA (PCR) Negative (Negative) 06/12/23 07:39 Adenovirus (PCR) Not Detected (NotDetected) 06/12/23 00:31 B. pertussis DNA (PCR) Not Detected (NotDetected) 06/12/23 00:31 B.parapertussis DNA PCR Not Detected (NotDetected) 06/12/23 00:31 C. pneumoniae DNA (PCR) Not Detected (NotDetected) 06/12/23 00:31 Coronavirus OC43 (PCR) Not Detected (NotDetected) 06/12/23 00:31 Coronavirus HKU1 (PCR) Not Detected (NotDetected) 06/12/23 00:31 Coronavirus 229E (PCR) Not Detected (NotDetected) 06/12/23 00:31 SARS-CoV-2 (PCR) Not Detected (NotDetected) 06/12/23 00:31 Coronavirus NL63 (PCR) Not Detected (NotDetected) 06/12/23 00:31 Human Metapneumovir PCR Not Detected (NotDetected) 06/12/23 00:31 Influenza Type A (PCR) Not Detected (NotDetected) 06/12/23 00:31 Influenza Type B (PCR) Not Detected (NotDetected) 06/12/23 00:31 M. pneumoniae (PCR) Not Detected (NotDetected) 06/12/23 00:31 Parainfluenza 1 (PCR) Not Detected (NotDetected) 06/12/23 00:31 Parainfluenza 2 (PCR) Not Detected (NotDetected) 06/12/23 00:31 Parainfluenza 3 (PCR) Not Detected (NotDetected) 06/12/23 00:31 Parainfluenza 4 (PCR) Not Detected (NotDetected) 06/12/23 00:31 RSV (PCR) Not Detected (NotDetected) 06/12/23 00:31 Entero/Rhino (PCR) Not Detected (NotDetected) 06/12/23 00:31 Impressions Chest X-Ray 06/12/23 02:27 XR chest 1V portable HISTORY: Sepsis COMPARISON: Chest 06/12/2023. FINDINGS: No pneumothorax. The cardiac silhouette remains enlarged. Small right and moderate left pleural effusions with bibasilar densities are again noted. There is interstitial/vascular thickening consistent with moderate pulmonary edema. No acute fractures identified. IMPRESSION: 1. Cardiomegaly, moderate pulmonary edema, and bilateral pleural effusions. 2. Bibasilar densities may represent atelectasis or a pneumonia. ACT 112: Negative or not required by law. Electronically signed by: Eddy Jacobsen M.D. 06/12/2023 7:[address] 06/12/23 04:03 CT chest diagnostic wo con CT DOSE: 399.23 mGy.cm HISTORY: Shortness of breath. cough TECHNIQUE: Multiaxial CT images of the chest were performed without contrast. A dose lowering technique was utilized adhering to the principles of ALARA. COMPARISON: Chest CT 02/01/2023. FINDINGS: The central airways are patent. No pneumothorax. Small to moderate bilateral pleural effusions are again noted. There is interlobular septal thickening consistent with mild interstitial pulmonary edema. Groundglass densities within the lungs posteriorly favor dependent change/atelectasis. There are areas of focal consolidation within the bases of the bilateral lower lobes, right middle lobe, and lingula which demonstrate a rounded appearance. This favors a combination of compressive and round atelectasis. These have slightly progressed compared to the prior CT examination. A superimposed pneumonia or underlying pulmonary lesion would be difficult to exclude. No acute fractures identified. Mild body wall edema. The heart remains enlarged. There are no pericardial effusions. Normal esophagus. Mild calcified plaque within the normal caliber thoracic aorta. There are severe coronary artery calcifications noted. The main pulmonary artery is mildly dilated up to 3.9 cm. This is consistent with underlying pulmonary arterial hypertension. There is mild mediastinal lymphadenopathy which is slightly progressed in the interval. There are calcified bilateral hilar lymph nodes. Suggestion of a right suprahilar lymph node which is new from the prior study and measures 1.7 cm. This is best seen on image 94. This could represent a distended pulmonary vessel but is difficult to assess on this noncontrast study. Limited views of the upper abdomen demonstrate normal liver, spleen, and adrenal glands. IMPRESSION: 1. Cardiomegaly with pulmonary edema and small to moderate bilateral pleural effusions. 2. Bibasilar consolidation has a somewhat rounded appearance and likely represents a combination of compressive and round atelectasis from the chronic pleural effusions. A superimposed pneumonia or underlying pulmonary lesion would be difficult to exclude. Follow-up recommended. 3. Pulmonary arterial hypertension. 4. Mild mediastinal lymphadenopathy which has slightly progressed. There is also suggestion of a single right suprahilar lymph node which is enlarged. 3 month follow-up recommended to ensure resolution. 5. Additional findings as described above. ACT 112: Negative or not required by law. Electronically signed by: Eddy Jacobsen M.D. 06/12/2023 6:54 AM
[2023-06-12] MEDS: METOPROLOL SUCC 50MG EXT REL TAB PO SCH (18:05)
[2023-06-12] MEDS: CINACALCET HCL 30 MG TAB PO SCH (18:05)
[2023-06-12] MEDS: GABAPENTIN 100 MG CAP PO SCH (18:05)
[2023-06-12] MEDS: ATORVASTATIN 40 MG TAB PO SCH (21:39)
[2023-06-13] MEDS: ISOSORBIDE DINITRATE 20 MG TAB PO SCH ×3 (05:59→17:07)
[2023-06-13] MEDS: HEPARIN SOD 5,000 UNIT/0.5 ML VIAL SQ SCH ×4 (05:59→20:57)
[2023-06-13] MEDS: CEFEPIME 1,000 MG in SYRINGE 0 ML IV SCH (05:59)
[2023-06-13 06:26] LABS: Basophils # (auto) 0.03 K/uL (0.00-0.20); Basophils % (auto) 0.3 %; Eosinophils # (auto) 0.14 K/uL (0.00-0.50); Eosinophils % (auto) 1.6 %; Hematocrit (blood only) 30.6 % (42.0-52.0); Hemoglobin 9.3 g/dl (14.0-18.0); Immature Granulocytes # (auto) 0.03 K/uL (0.01-0.20); Immature Granulocytes % (auto) 0.3 %; Lymphocytes % (auto) 13.4 %; Mean Corpuscular Hemoglobin 28.8 pg (25.0-34.0); Mean Corpuscular Hgb Conc 30.4 g/dL (32.0-36.0); Mean Corpuscular Volume 94.7 fL (80.0-100.0); Mean Platelet Volume 10.8 fL (9.4-12.4); Monocytes # (auto) 0.84 K/uL (0.11-0.59); Monocytes % (auto) 9.4 %; Neutrophils # (auto) 6.71 K/uL (1.40-6.50); Platelet Count 283 K/uL (130-400); RDW Coefficient of Variation 15.5 % (11.5-14.5); RDW Standard Deviation 53.7 fL (36.4-46.3); Red Blood Count 3.23 M/uL (4.70-6.10); White Blood Count 8.95 K/ul (4.8-10.8)
[2023-06-13 07:30] LABS: BUN Creatinine Ratio 6.8 (10-20); Calcium 9.2 mg/dl (8.6-10.3); Creatinine Clr Calc Pharmacy 8.8 ml/min; Est GFR (African American) 7.4 ml/min; Est GFR (Non-African American) 6.4 ml/min; Magnesium 2.2 mg/dl (1.7-2.4); Potassium 5.2 mmol/L (3.5-5.1)
[2023-06-13 07:31] LABS: BUN Creatinine Ratio 6.8 (10-20); Calcium 9.2 mg/dl (8.6-10.3); Creatinine Clr Calc Pharmacy 8.8 ml/min; Est GFR (African American) 7.4 ml/min; Est GFR (Non-African American) 6.4 ml/min; Potassium 5.2 mmol/L (3.5-5.1)
[2023-06-13] MEDS: SEVELAMER HCL 800 MG TABLET PO SCH ×3 (08:31→17:07)
[2023-06-13] MEDS: AURYXIA~ORDER AWAITING ACTION SCH ×2 (08:31→15:41)
[2023-06-13] MEDS: CINACALCET HCL 30 MG TAB PO SCH (08:32)
[2023-06-13] MEDS: ASPIRIN 81 MG ECTAB PO SCH (08:32)
[2023-06-13] MEDS: allopurinoL 100 MG TAB PO SCH (08:32)
[2023-06-13] MEDS: DOXYCYCLINE HYCLATE 100 MG CAP PO SCH ×2 (08:32→20:53)
[2023-06-13] MEDS: amLODIPine BESYLATE 5 MG TAB PO SCH (08:33)
[2023-06-13] MEDS: hydrALAZINE TAB 50 MG TAB PO SCH ×3 (08:33→20:52)
[2023-06-13] MEDS: PATIROMER CALCIUM SORBITEX 8.4 GM PACK PO SCH (13:24)
[2023-06-13] MEDS: METOPROLOL SUCC 50MG EXT REL TAB PO SCH (17:07)
--- NOTE | 2023-06-13 17:10 | Hospitalist Progress Note ---
Date of Service June 13, 2023 Assessment & Plan (1) Acute hypoxemic respiratory failure: Plan: 1) Acute hypoxemic respiratory failure: Plan: Acute CHF missed dialysis. LAst dialysis 5 days ago. questionable pneumonia.on antibiotics.on cefepime and doxy will complete the course. Pleural effusions recurrent s/p dialysis sob much improved . will closely monitor. acute Systolic chf valvular heart disease. improving with dialysis Pleural effusions Plan for IR thoracocentesis in am there is plan IR thoracocentesis monthly but daughter doubts patient will do it will do thoracentesis while in the hospital as patient seems non complaint appreciate pulmonary inputs. ESRD on HD Nephro on board. Hyperkalemia on veltassa at home received Lokelma insulin and dextrose holding losartan s/p dialysis improved Elevated troponin mostly from resp distress and esrd trending down HTN, on amlodipine, toprol xl, isosorbide dinitrate,hydralazine holding losartan will monitor. seems stable paroxysmal atrial flutter, patient currently NSR on toprol xl. hyperlipidemia, on statin Rx prediabetes, hemoglobin A1c 5.8 2021 chronic anemia, hemoglobin at baseline dvt px hep sub q Disposition Possible d/c in 1-2 days Admission and Anticipated Discharge Date Admission Date: June 12, 2023 Subjective resting comfortably sob improved denies chest pain no sob no cough ok for thoracentesis in am used translation service on his phone and also talked with his daughter who helped with translation Review of Systems Review of Systems: All systems reviewed & are unremarkable except as noted in HPI & below Physical Exam Physical Exam: General- Not in distress Head- atraumatic ENT- oropharynx clear Neck- supple, no JVD. Lungs- clear to auscultation no wheezing or crackles. Heart- regular rhythm; no murmur, no gallop. Abdomen- normal bowel sounds, soft, nontender, no distension. Extremities- lower extremity edema present. no erythema seen Neuro- alert, oriented no facial palsy; no dysarthria; moves extremities. Skin- warm & dry Results & Data Results & Data Vital Signs (Past 12 Hours) Vital Signs Temp Pulse Pulse Resp BP Pulse Ox O2 Del Method 06/13/23 16:26 36.9 C 76 18 131/72 95 Room Air 06/13/23 15:08 69 06/13/23 11:29 Room Air 06/13/23 11:17 36.9 C 73 18 146/78 H 90 Room Air 06/13/23 08:02 72 06/13/23 07:23 36.9 C 66 18 141/75 H 90 Room Air 06/13/23 05:58 67 150/82 H Diagnostic Findings Laboratory Results WBC 8.95 K/ul (4.8-10.8) 06/13/23 05:48 RBC 3.23 M/uL (4.70-6.10) L 06/13/23 05:48 Hgb 9.3 g/dl (14.0-18.0) L 06/13/23 05:48 Hct 30.6 % (42.0-52.0) L 06/13/23 05:48 MCV 94.7 fL (80.0-100.0) 06/13/23 05:48 MCH 28.8 pg (25.0-34.0) 06/13/23 05:48 MCHC 30.4 g/dL (32.0-36.0) L 06/13/23 05:48 RDW Std Deviation 53.7 fL (36.4-46.3) H 06/13/23 05:48 RDW Coeff of Diamond 15.5 % (11.5-14.5) H 06/13/23 05:48 Plt Count 283 K/uL (130-400) 06/13/23 05:48 MPV 10.8 fL (9.4-12.4) 06/13/23 05:48 Immature Gran % (Auto) 0.3 % 06/13/23 05:48 Neut % (Auto) 75.0 % 06/13/23 05:48 Lymph % (Auto) 13.4 % 06/13/23 05:48 [place] % (Auto) 9.4 % 06/13/23 05:48 Eos % (Auto) 1.6 % 06/13/23 05:48 Baso % (Auto) 0.3 % 06/13/23 05:48 Neut # (Auto) 6.71 K/uL (1.40-6.50) H 06/13/23 05:48 Lymph # (Auto) 1.20 K/uL (1.20-3.40) 06/13/23 05:48 [place] # (Auto) 0.84 K/uL (0.11-0.59) H 06/13/23 05:48 Eos # (Auto) 0.14 K/uL (0.00-0.50) 06/13/23 05:48 Baso # (Auto) 0.03 K/uL (0.00-0.20) 06/13/23 05:48 Immature Gran # (Auto) 0.03 K/uL (0.01-0.20) 06/13/23 05:48 ABG pH 7.44 (7.35-7.45) 06/12/23 03:28 ABG pCO2 38 mmHg (35-46) 06/12/23 03:28 ABG pO2 54 mmHg (80-95) L 06/12/23 03:28 ABG HCO3 26 mmol/L (19-24) H 06/12/23 03:28 ABG O2 Saturation 84.8 % (90-95) L 06/12/23 03:28 ABG Base Excess 1.7 mEq/L (-9-1.8) 06/12/23 03:28 Dharmesh Test Pos (Pos) 06/12/23 03:28 Oxygen Given 2L 06/12/23 03:28 Sodium 142 mmol/L (136-145) 06/13/23 05:48 Sodium 142 mmol/L (136-145) 06/13/23 05:48 Potassium 5.2 mmol/L (3.5-5.1) H 06/13/23 05:48 Potassium 5.2 mmol/L (3.5-5.1) H 06/13/23 05:48 Chloride 102 mmol/L (98-107) 06/13/23 05:48 Chloride 102 mmol/L (98-107) 06/13/23 05:48 Carbon Dioxide 29 mmol/L (21-32) 06/13/23 05:48 Carbon Dioxide 30 mmol/L (21-32) 06/13/23 05:48 Anion Gap 10 (3-11) 06/13/23 05:48 Anion Gap 11 (3-11) 06/13/23 05:48 BUN 53 mg/dl (6-23) H 06/13/23 05:48 BUN 53 mg/dl (6-23) H D 06/13/23 05:48 Creatinine 7.80 mg/dl (0.6-1.4) H* 06/13/23 05:48 Creatinine 7.81 mg/dl (0.6-1.4) H* D 06/13/23 05:48 Est Cr Clr Drug Dosing 8.8 ml/min 06/13/23 05:48 Est Cr Clr Drug Dosing 8.8 ml/min 06/13/23 05:48 Est GFR ( Amer) 7.4 ml/min 06/13/23 05:48 Est GFR ( Amer) 7.4 ml/min 06/13/23 05:48 Est GFR (Non-Af Amer) 6.4 ml/min 06/13/23 05:48 Est GFR (Non-Af Amer) 6.4 ml/min 06/13/23 05:48 BUN/Creatinine Ratio 6.8 (10-20) L 06/13/23 05:48 BUN/Creatinine Ratio 6.8 (10-20) L 06/13/23 05:48 Glucose 71 mg/dl (70-99(Fasting)) 06/13/23 05:48 Glucose 72 mg/dl (70-99(Fasting)) 06/13/23 05:48 Lactate 0.9 mmol/L (0.4-2.0) 06/12/23 03:03 Calcium 9.2 mg/dl (8.6-10.3) 06/13/23 05:48 Calcium 9.2 mg/dl (8.6-10.3) 06/13/23 05:48 Magnesium 2.2 mg/dl (1.7-2.4) 06/13/23 05:48 Total Bilirubin 0.9 mg/dl (0.2-1.0) 06/12/23 03:03 Direct Bilirubin 0.2 mg/dl (0-0.2) 06/12/23 03:03 AST 15 U/L (13-39) 06/12/23 03:03 ALT 15 U/L (7-52) 06/12/23 03:03 Alkaline Phosphatase 59 U/L (34-104) 06/12/23 03:03 Troponin I High Sens 390.3 pg/ml (0-20) H* 06/12/23 05:00 B-Natriuretic Peptide > 4700 pg/ml (0-100) H 06/12/23 03:03 Total Protein 6.1 gm/dl (6.0-8.3) 06/12/23 03:03 Albumin 3.5 gm/dl (3.4-5.0) 06/12/23 03:03 Procalcitonin 0.66 ng/ml (0-0.5) H 06/12/23 03:03 Nasal Screen MRSA (PCR) Negative (Negative) 06/12/23 07:39 Adenovirus (PCR) Not Detected (NotDetected) 06/12/23 00:31 B. pertussis DNA (PCR) Not Detected (NotDetected) 06/12/23 00:31 B.parapertussis DNA PCR Not Detected (NotDetected) 06/12/23 00:31 C. pneumoniae DNA (PCR) Not Detected (NotDetected) 06/12/23 00:31 Coronavirus OC43 (PCR) Not Detected (NotDetected) 06/12/23 00:31 Coronavirus HKU1 (PCR) Not Detected (NotDetected) 06/12/23 00:31 Coronavirus 229E (PCR) Not Detected (NotDetected) 06/12/23 00:31 SARS-CoV-2 (PCR) Not Detected (NotDetected) 06/12/23 00:31 Coronavirus NL63 (PCR) Not Detected (NotDetected) 06/12/23 00:31 Human Metapneumovir PCR Not Detected (NotDetected) 06/12/23 00:31 Influenza Type A (PCR) Not Detected (NotDetected) 06/12/23 00:31 Influenza Type B (PCR) Not Detected (NotDetected) 06/12/23 00:31 M. pneumoniae (PCR) Not Detected (NotDetected) 06/12/23 00:31 Parainfluenza 1 (PCR) Not Detected (NotDetected) 06/12/23 00:31 Parainfluenza 2 (PCR) Not Detected (NotDetected) 06/12/23 00:31 Parainfluenza 3 (PCR) Not Detected (NotDetected) 06/12/23 00:31 Parainfluenza 4 (PCR) Not Detected (NotDetected) 06/12/23 00:31 RSV (PCR) Not Detected (NotDetected) 06/12/23 00:31 Entero/Rhino (PCR) Not Detected (NotDetected) 06/12/23 00:31 Impressions Chest X-Ray 06/12/23 02:27 XR chest 1V portable HISTORY: Sepsis COMPARISON: Chest 06/12/2023. FINDINGS: No pneumothorax. The cardiac silhouette remains enlarged. Small right and moderate left pleural effusions with bibasilar densities are again noted. There is interstitial/vascular thickening consistent with moderate pulmonary edema. No acute fractures identified. IMPRESSION: 1. Cardiomegaly, moderate pulmonary edema, and bilateral pleural effusions. 2. Bibasilar densities may represent atelectasis or a pneumonia. ACT 112: Negative or not required by law. Electronically signed by: Eddy Jacobsen M.D. 06/12/2023 7:[address] 06/12/23 04:03 CT chest diagnostic wo con CT DOSE: 399.23 mGy.cm HISTORY: Shortness of breath. cough TECHNIQUE: Multiaxial CT images of the chest were performed without contrast. A dose lowering technique was utilized adhering to the principles of ALARA. COMPARISON: Chest CT 02/01/2023. FINDINGS: The central airways are patent. No pneumothorax. Small to moderate bilateral pleural effusions are again noted. There is interlobular septal thickening consistent with mild interstitial pulmonary edema. Groundglass densities within the lungs posteriorly favor dependent change/atelectasis. There are areas of focal consolidation within the bases of the bilateral lower lobes, right middle lobe, and lingula which demonstrate a rounded appearance. This favors a combination of compressive and round atelectasis. These have slightly progressed compared to the prior CT examination. A superimposed pneumonia or underlying pulmonary lesion would be difficult to exclude. No acute fractures identified. Mild body wall edema. The heart remains enlarged. There are no pericardial effusions. Normal esophagus. Mild calcified plaque within the normal caliber thoracic aorta. There are severe coronary artery calcifications noted. The main pulmonary artery is mildly dilated up to 3.9 cm. This is consistent with underlying pulmonary arterial hypertension. There is mild mediastinal lymphadenopathy which is slightly progressed in the interval. There are calcified bilateral hilar lymph nodes. Suggestion of a right suprahilar lymph node which is new from the prior study and measures 1.7 cm. This is best seen on image 94. This could represent a distended pulmonary vessel but is difficult to assess on this noncontrast study. Limited views of the upper abdomen demonstrate normal liver, spleen, and adrenal glands. IMPRESSION: 1. Cardiomegaly with pulmonary edema and small to moderate bilateral pleural effusions. 2. Bibasilar consolidation has a somewhat rounded appearance and likely represents a combination of compressive and round atelectasis from the chronic pleural effusions. A superimposed pneumonia or underlying pulmonary lesion would be difficult to exclude. Follow-up recommended. 3. Pulmonary arterial hypertension. 4. Mild mediastinal lymphadenopathy which has slightly progressed. There is also suggestion of a single right suprahilar lymph node which is enlarged. 3 month follow-up recommended to ensure resolution. 5. Additional findings as described above. ACT 112: Negative or not required by law. Electronically signed by: Eddy Jacobsen M.D. 06/12/2023 6:54 AM
[2023-06-13] MEDS: ATORVASTATIN 40 MG TAB PO SCH (20:52)
[2023-06-14] MEDS: AURYXIA~ORDER AWAITING ACTION SCH ×3 (00:31→17:11)
[2023-06-14] MEDS: HEPARIN SOD 5,000 UNIT/0.5 ML VIAL SQ SCH ×5 (05:44→22:02)
[2023-06-14 06:33] LABS: Basophils # (auto) 0.04 K/uL (0.00-0.20); Basophils % (auto) 0.4 %; Eosinophils # (auto) 0.24 K/uL (0.00-0.50); Eosinophils % (auto) 2.6 %; Hematocrit (blood only) 28.8 % (42.0-52.0); Hemoglobin 9.1 g/dl (14.0-18.0); Immature Granulocytes # (auto) 0.04 K/uL (0.01-0.20); Immature Granulocytes % (auto) 0.4 %; Lymphocytes # (auto) 1.27 K/uL (1.20-3.40); Lymphocytes % (auto) 13.8 %; Mean Corpuscular Hemoglobin 29.4 pg (25.0-34.0); Mean Corpuscular Hgb Conc 31.6 g/dL (32.0-36.0); Mean Corpuscular Volume 93.2 fL (80.0-100.0); Mean Platelet Volume 10.7 fL (9.4-12.4); Monocytes % (auto) 9.8 %; Neutrophils # (auto) 6.72 K/uL (1.40-6.50); Platelet Count 283 K/uL (130-400); RDW Coefficient of Variation 15.6 % (11.5-14.5); RDW Standard Deviation 53.6 fL (36.4-46.3); Red Blood Count 3.09 M/uL (4.70-6.10); White Blood Count 9.21 K/ul (4.8-10.8)
[2023-06-14] MEDS ORDERED: SODIUM CHLORIDE 0.9% 1,000 ML IV PRN (07:00)
[2023-06-14] MEDS ORDERED: EPOETIN ALFA 10,000 UNITS/ML VIAL IV ONE (07:00)
[2023-06-14 07:01] LABS: Calcium 8.8 mg/dl (8.6-10.3); Creatinine Clr Calc Pharmacy 7.2 ml/min; Est GFR (African American) 5.8 ml/min; Potassium 5.1 mmol/L (3.5-5.1)
[2023-06-14] MEDS ORDERED: ERGOCALCIFEROL 50,000 UNITS 1250 MCG CAP PO SCH (09:00)
--- NOTE | 2023-06-14 10:52 | Dialysis Progress Note ---
Date of Service June 14, 2023 Assessment & Plan Admission and Anticipated Discharge Date Admission Date: June 12, 2023 Subjective Assessment & Plan (1) Acute hypoxemic respiratory failure: In the setting of fluid overload/pneumonia with fever and also recurrent pleural effusion (2) ESRD (end stage renal disease) on dialysis: Patient is a chronic dialysis patient Monday as an in center hemodialysis through his AV fistula. However he did miss dialysis on Monday which means his last dialysis was almost 5 days ago. He does not make urine anymore and has tendency of developing pulmonary edema with symptoms easily. for today We will do for 4 hours on a 2K bath and try to take as much fluid as we are allowed by the patient. In the past he has Dictated how much fluid we can remove and also the time duration of the dialysis. (3) Recurrent pleural effusion: This has been an ongoing issue and he is followed closely by pulmonary and gets serial thoracocentesis. He has already evaluated by pulmonary at [facility] and was felt not a candidate for pleurodesis (4) Pneumonia: As per primary team. Given presence of fever reasonable to give him antibiotic S---Seen during Dialysis. NO complaints. AVF fine and BP is fine. So far tolerating well. Physical Exam GENERAL - no acute distress. . SKIN - Without rashes or lesions. MOUTH/OROPHARYNX - MM moist. Neck is supple no jugular venous distention LUNGS - diminished breath sounds at the bases with slight crackles. CARDIAC - RRR with S1/S2. No murmur, rubs, or gallops appreciated. ABDOMEN -soft nontender EXTREMITIES -trace edema. LUE fistula in place. Results & Data Vital Signs (Past 12 Hours) Vital Signs Temp Pulse Pulse Resp BP Pulse Ox O2 Del Method 06/14/23 08:14 36.8 C 73 18 163/75 H 95 Nasal Cannula 06/14/23 07:26 60 06/14/23 04:48 155/74 H 06/14/23 03:00 36.9 C 64 18 174/85 H 94 Room Air 06/13/23 23:49 70 06/13/23 23:00 36.8 C 65 16 162/89 H 95 Nasal Cannula O2 Flow Rate 06/14/23 08:14 1 06/14/23 07:26 06/14/23 04:48 06/14/23 03:00 06/13/23 23:49 06/13/23 23:00 2
[2023-06-14] MEDS: CEFEPIME 1,000 MG in SYRINGE 0 ML IV SCH (14:18)
[2023-06-14] MEDS: allopurinoL 100 MG TAB PO SCH (14:19)
[2023-06-14] MEDS: ASPIRIN 81 MG ECTAB PO SCH (14:19)
[2023-06-14] MEDS: ISOSORBIDE DINITRATE 20 MG TAB PO SCH ×3 (14:20→17:14)
[2023-06-14] MEDS: SEVELAMER HCL 800 MG TABLET PO SCH ×3 (14:20→17:14)
[2023-06-14] MEDS: amLODIPine BESYLATE 5 MG TAB PO SCH (14:21)
[2023-06-14] MEDS: CINACALCET HCL 30 MG TAB PO SCH (14:21)
[2023-06-14] MEDS: hydrALAZINE TAB 50 MG TAB PO SCH ×3 (14:22→21:12)
[2023-06-14] MEDS: DOXYCYCLINE HYCLATE 100 MG CAP PO SCH ×2 (14:22→21:12)
[2023-06-14] MEDS: PATIROMER CALCIUM SORBITEX 8.4 GM PACK PO SCH (14:24)
--- NOTE | 2023-06-14 15:47 | Hospitalist Progress Note ---
Date of Service June 14, 2023 Assessment & Plan (1) Acute hypoxemic respiratory failure: Plan: 1) Acute hypoxemic respiratory failure: Plan: Acute CHF associated with mild to moderate bilateral pleural effusion Missed dialysis. LAst dialysis 5 days ago. Questionable pneumonia.on antibiotics.on cefepime and doxy will complete the course. Pleural effusions recurrent Has been getting dialysis and denies any symptoms as of this afternoon Lying flat without any shortness of breath Has been moving in the room without any difficulties or dizziness He wants to go home and they are discussed with the daughter in detail Discussed with the hide and skin colerer Will be discharged home this afternoon with scheduled dialysis on Monday Acute Systolic chf Complicated by valvular heart disease. Much improved with dialysis Pleural effusions Mild to moderate pleural effusion with history of chronic effusion Plan for IR thoracocentesis in am there is plan IR thoracocentesis monthly but daughter doubts patient will do it will do thoracentesis while in the hospital as patient seems non complaint Thoracentesis was not possible due to hemodialysis with heparin today Will have outpatient follow-up for possible thoracentesis on nonhemodialysis day Repeat chest x-ray to review the effusion prior to discharge today ESRD on HD Nephro on board. Discussed with the hide and skin colerer and he will be discharged home this afternoon with next scheduled hemodialysis on Monday That was communicated with the daughter who is in agreement with Hyperkalemia on veltassa at home received Lokelma insulin and dextrose holding losartan s/p dialysis improved Elevated troponin mostly from resp distress and esrd trending down HTN, on amlodipine, toprol xl, isosorbide dinitrate,hydralazine holding losartan will monitor. seems stable paroxysmal atrial flutter, patient currently NSR on toprol xl. hyperlipidemia, on statin Rx prediabetes, hemoglobin A1c 5.8 2021 chronic anemia, hemoglobin at baseline dvt px hep sub q Will repeat chest x-ray today to document effusions and if it is not increased he will be discharged home this afternoon Admission and Anticipated Discharge Date Admission Date: June 12, 2023 Subjective 06/14/2023 The patient was seen and examined in telemetry unit He is a status post hemodialysis but did not have thoracentesis as because he received intravenous heparin and this is not done on dialysis today He denies any symptoms of shortness of breath, abdominal distention, nausea no vomiting, any dizziness with ambulation He wants to go home Review of Systems Review of Systems: All systems reviewed and are unremarkable except as noted below Physical Exam Physical Exam: Lying in bed comfortably Constitutional: well developed and well nourished; not ill appearing Eyes: PERRL, conjunctivae normal, anicteric sclerae ENMT: external ear and nose normal, oropharynx normal Neck: trachea midline, no thyromegaly Respiratory: no respiratory distress Auscultation: lungs clear to auscultation bilaterally and + diminished lung sounds; no crackles Cardiovascular: Rate/Rhythm: regular rate and regular rhythm; not tachycardic Heart Sounds: normal S1 and normal S2; no murmur Extremities: no edema Gastrointestinal (Abdomen): Inspection/Auscultation: normal bowel sounds; abdomen not distended Percussion/Palpation: abdomen soft; abdomen nontender Musculoskeletal: No acute arthritis involving any of the joint Neurologic: normal touch/pain/proprioception and moves all extremities; no focal motor deficits Lymphatic: no cervical or axillary lymphadenopathy Results & Data Results & Data Vital Signs (Past 12 Hours) Vital Signs Temp Pulse Pulse Pulse Resp BP BP 06/14/23 14:16 36.6 C 68 12 168/103 H 06/14/23 14:00 06/14/23 14:00 36.5 C 56 L 182/91 H 06/14/23 13:30 57 L 144/91 H 06/14/23 13:00 53 L 155/80 H 06/14/23 12:30 55 L 160/92 H 06/14/23 12:00 56 L 174/85 H 06/14/23 11:30 54 L 165/100 H 06/14/23 11:00 47 L 167/87 H 06/14/23 10:00 57 L 146/84 H 06/14/23 09:31 36.5 C 64 06/14/23 08:14 36.8 C 73 18 163/75 H 06/14/23 07:26 60 06/14/23 04:48 155/74 H Pulse Ox O2 Del Method O2 Flow Rate 06/14/23 14:16 93 Nasal Cannula 2 06/14/23 14:00 Nasal Cannula 2 06/14/23 14:00 06/14/23 13:30 06/14/23 13:00 06/14/23 12:30 06/14/23 12:00 06/14/23 11:30 06/14/23 11:00 06/14/23 10:00 06/14/23 09:31 06/14/23 08:14 95 Nasal Cannula 1 06/14/23 07:26 06/14/23 04:48 Laboratory Results Short CBC 06/14/23 Range/Units 06:12 WBC 9.21 (4.8-10.8) K/ul Hgb 9.1 L (14.0-18.0) g/dl Hct 28.8 L (42.0-52.0) % Plt Count 283 (130-400) K/uL BMP 06/14/23 06:12 Sodium 142 Potassium 5.1 Chloride 103 Carbon Dioxide 28 BUN 67 H Creatinine 9.55 H* D Glucose 68 L Calcium 8.8 Medications Administered Current Inpatient Medications Acetaminophen (Acetaminophen 325 Mg Tab) 650 mg PO Q4H PRN PRN Reason: Pain or Fever Stop: 07/12/23 06:03 Allopurinol (Allopurinol 100 Mg Tab) 50 mg PO DAILY [facility] Stop: 07/12/23 08:59 Last Admin: 06/14/23 14:19 Dose: 50 mg Amlodipine Besylate (Amlodipine Besylate 5 Mg Tab) 10 mg PO QAM [facility] Stop: 07/13/23 08:59 Last Admin: 06/14/23 14:21 Dose: 10 mg Aspirin (Aspirin 81 Mg Ectab) 81 mg PO QAM [facility] Stop: 07/12/23 08:59 Last Admin: 06/14/23 14:19 Dose: 81 mg Atorvastatin Calcium (Atorvastatin 40 Mg Tab) 40 mg PO HS [facility] Stop: 07/12/23 20:59 Last Admin: 06/13/23 20:52 Dose: 40 mg Cinacalcet (Cinacalcet Hcl 30 Mg Tab) 30 mg PO DAILY [facility] Stop: 07/12/23 16:59 Last Admin: 06/14/23 14:21 Dose: 30 mg Doxycycline Hyclate (Doxycycline Hyclate 100 Mg Cap) 100 mg PO BID [facility] Stop: 06/19/23 08:59 Last Admin: 06/14/23 14:22 Dose: 100 mg Ergocalciferol (Ergocalciferol 50,000 Units 1250 Mcg Cap) 50,000 units PO We MYLES Stop: 07/14/23 08:59 Last Admin: 06/14/23 14:19 Dose: 50,000 units Gabapentin (Gabapentin 100 Mg Cap) 100 mg PO MoWeFr [facility] Stop: 07/12/23 15:59 Last Admin: 06/12/23 18:05 Dose: 100 mg Heparin Sodium (Porcine) (Heparin Sod 5,000 Unit/0.5 Ml Vial) 5,000 units SQ Q8 [facility] Stop: 07/12/23 06:03 Last Admin: 06/14/23 15:06 Dose: Not Given Hydralazine HCl (Hydralazine Tab 50 Mg Tab) 100 mg PO TID [facility] Stop: 07/12/23 08:59 Last Admin: 06/14/23 14:25 Dose: 100 mg Promethazine HCl 6.25 mg/ (Sodium Chloride) 50.25 mls @ 201 mls/hr IV Q6H PRN PRN Reason: Nausea And Vomiting Stop: 07/12/23 04:18 Cefepime HCl 1,000 mg/ Syringe 10 mls @ 5 mls/min IV Q24H [facility]; Protocol Stop: 06/19/23 06:59 Last Admin: 06/14/23 14:18 Dose: 5 mls/min Isosorbide Dinitrate (Isosorbide Dinitrate 20 Mg Tab) 20 mg PO TID@0700,1200,1700 [facility] Stop: 07/12/23 11:59 Last Admin: 06/14/23 14:24 Dose: Not Given Metoprolol Succinate (Metoprolol Succ 50mg Ext Rel Tab) 100 mg PO QDD [facility] Stop: 07/12/23 16:29 Last Admin: 06/13/23 17:07 Dose: 100 mg Miscellaneous (Auryxia~Order Awaiting Action) 1 each N/A QS [facility] Stop: 07/12/23 07:59 Last Admin: 06/14/23 14:15 Dose: Not Given Patiromer (Patiromer Calcium Sorbitex 8.4 Gm Pack) 16.8 gm PO Q24H [facility] Stop: 07/12/23 11:59 Last Admin: 06/14/23 14:24 Dose: 16.8 gm Sevelamer HCl (Sevelamer Hcl 800 Mg Tablet) 800 mg PO TIDM [facility] Stop: 07/12/23 07:59 Last Admin: 06/14/23 14:25 Dose: Not Given Tramadol HCl (Tramadol Hcl 50 Mg Tablet) 25 - 50 mg PO Q4H PRN PRN Reason: Pain Stop: 07/12/23 04:18
[2023-06-14 15:57] LABS: HBSAG NON-REACTIVE (NON-REACTIVE)
--- NOTE | 2023-06-14 16:42 | XRay Report ---
SINGLE VIEW CHEST CLINICAL HISTORY: Pleural effusion. FINDINGS: An AP, portable, upright chest radiograph is compared to chest x-ray and chest CT dated . The heart is enlarged and noting atherosclerotic calcification of the thoracic and upper. Th ere is mild pulmonary vascular congestion. This is significantly improved from previous. There are mo derate left and small right pleural effusions with dependent consolidation. No pneumothorax is seen. The skeletal structures are osteopenic. The bony thorax is grossly intact. IMPRESSION: 1. Cardiomegaly with pulmonary vascular congestion. This has improved as compared to 06/12/2023. 2. Left larger than right pleural effusions with dependent consolidation. Continued follow-up to reso lution is recommended. ACT 112: Negative or not required by law. Electronically signed by: Tone Mccain M.D. 06/14/2023 4:41 PM
[2023-06-14] MEDS: METOPROLOL SUCC 50MG EXT REL TAB PO SCH (17:15)
[2023-06-14] MEDS: GABAPENTIN 100 MG CAP PO SCH (17:15)
[2023-06-14] MEDS: ATORVASTATIN 40 MG TAB PO SCH (21:12)
--- NOTE | 2023-06-14 23:22 | Electrocardiogram Report ---
Test Reason : Blood Pressure : / mmHG Vent. Rate : 097 BPM Atrial Rate : 097 BPM P-R Int : 162 ms QRS Dur : 088 ms QT Int : 340 ms P-R-T Axes : 029 -37 117 degrees QTc Int : 431 ms Normal sinus rhythm Left axis deviation Cannot rule out Anterior infarct , age undetermined Marked ST abnormality, possible lateral subendocardial injury Abnormal ECG When compared with ECG of 17-MAY-2023 11:54, Premature ventricular complexes are no longer Present Premature atrial complexes are no longer Present QRS axis Shifted left Confirmed by Víctor Sosa ([id number]) on 06/14/2023 11:21:51 PM Referred By: REFERRED SELF Confirmed By:Víctor Sosa
[2023-06-15] MEDS: AURYXIA~ORDER AWAITING ACTION SCH ×3 (01:14→17:23)
[2023-06-15] MEDS: HEPARIN SOD 5,000 UNIT/0.5 ML VIAL SQ SCH ×3 (05:03→19:59)
[2023-06-15] MEDS: CEFEPIME 1,000 MG in SYRINGE 0 ML IV SCH (05:58)
[2023-06-15] MEDS: ISOSORBIDE DINITRATE 20 MG TAB PO SCH ×3 (05:58→17:23)
[2023-06-15] MEDS: ASPIRIN 81 MG ECTAB PO SCH (08:53)
[2023-06-15] MEDS: hydrALAZINE TAB 50 MG TAB PO SCH ×3 (08:53→20:00)
[2023-06-15] MEDS: CINACALCET HCL 30 MG TAB PO SCH (08:53)
[2023-06-15] MEDS: amLODIPine BESYLATE 5 MG TAB PO SCH (08:54)
[2023-06-15] MEDS: DOXYCYCLINE HYCLATE 100 MG CAP PO SCH ×2 (08:54→20:00)
[2023-06-15] MEDS: allopurinoL 100 MG TAB PO SCH (08:54)
[2023-06-15] MEDS: SEVELAMER HCL 800 MG TABLET PO SCH ×3 (08:54→17:24)
[2023-06-15] MEDS: PATIROMER CALCIUM SORBITEX 8.4 GM PACK PO SCH (12:56)
--- NOTE | 2023-06-15 14:55 | Hospitalist Progress Note ---
Date of Service June 15, 2023 Assessment & Plan (1) Acute hypoxemic respiratory failure: Plan: 1) Acute hypoxemic respiratory failure: Plan: Acute CHF associated with mild to moderate bilateral pleural effusion Missed dialysis. LAst dialysis 5 days ago. Questionable pneumonia.on antibiotics.on cefepime and doxy will complete the course. Pleural effusions recurrent Has been getting dialysis and denies any symptoms as of this afternoon Lying flat without any shortness of breath Has been moving in the room without any difficulties or dizziness He wants to go home and they are discussed with the daughter in detail Discussed with the oil processing technician Was not discharged home yesterday due to concern of having more shortness of breath Acute Systolic chf Complicated by valvular heart disease. Much improved with dialysis Remains minimally short of breath at rest Pleural effusions Mild to moderate pleural effusion with history of chronic effusion Plan for IR thoracocentesis in am there is plan IR thoracocentesis monthly but daughter doubts patient will do it will do thoracentesis while in the hospital as patient seems non complaint Thoracentesis was not possible due to hemodialysis with heparin today Will have outpatient follow-up for possible thoracentesis on nonhemodialysis day Repeat chest x-ray showed slight improvement of the edema but left more than right pleural effusion persist We will try to get thoracentesis by the tactical deception plans officer tomorrow and plan to discharge the patient following dialysis ESRD on HD Nephro on board. Discussed with the oil processing technician and he will be discharged home this afternoon with next scheduled hemodialysis on Monday That was communicated with the daughter who is in agreement with Hyperkalemia on veltassa at home received Lokelma insulin and dextrose holding losartan s/p dialysis improved Elevated troponin mostly from resp distress and esrd trending down HTN, on amlodipine, toprol xl, isosorbide dinitrate,hydralazine holding losartan will monitor. seems stable paroxysmal atrial flutter, patient currently NSR on toprol xl. hyperlipidemia, on statin Rx prediabetes, hemoglobin A1c 5.8 2021 chronic anemia, hemoglobin at baseline dvt px hep sub q Likely discharge tomorrow following dialysis and possible thoracentesis Admission and Anticipated Discharge Date Admission Date: June 12, 2023 Subjective 06/14/2023 The patient was seen and examined in telemetry unit He is a status post hemodialysis but did not have thoracentesis as because he received intravenous heparin and this is not done on dialysis today He denies any symptoms of shortness of breath, abdominal distention, nausea no vomiting, any dizziness with ambulation He wants to go home 06/15/2023 The patient was seen and examined in telemetry unit He has been stable with minimal shortness of breath at rest Denies any acute pain, nausea or vomiting Review of Systems Review of Systems: All systems reviewed and are unremarkable except as noted below Physical Exam Physical Exam: Lying in bed comfortably Constitutional: well developed and well nourished; not ill appearing Eyes: PERRL, conjunctivae normal, anicteric sclerae ENMT: external ear and nose normal, oropharynx normal Neck: trachea midline, no thyromegaly Respiratory: no respiratory distress Auscultation: lungs clear to auscultation bilaterally and + diminished lung sounds; no crackles Cardiovascular: Rate/Rhythm: regular rate and regular rhythm; not tachycardic Heart Sounds: normal S1 and normal S2; no murmur Extremities: no edema Gastrointestinal (Abdomen): Inspection/Auscultation: normal bowel sounds; abdomen not distended Percussion/Palpation: abdomen soft; abdomen nontender Musculoskeletal: No acute arthritis involving any of the joint Neurologic: normal touch/pain/proprioception and moves all extremities; no focal motor deficits Lymphatic: no cervical or axillary lymphadenopathy Results & Data Results & Data Vital Signs (Past 12 Hours) Vital Signs Temp Pulse Pulse Resp BP Pulse Ox O2 Del Method 06/15/23 12:30 36.9 C 82 20 120/74 92 Room Air 06/15/23 10:58 Room Air 06/15/23 07:56 36.8 C 64 18 138/68 91 Room Air 06/15/23 07:35 91 H Medications Administered Current Inpatient Medications Acetaminophen (Acetaminophen 325 Mg Tab) 650 mg PO Q4H PRN PRN Reason: Pain or Fever Stop: 07/12/23 06:03 Allopurinol (Allopurinol 100 Mg Tab) 50 mg PO DAILY [facility] Stop: 07/12/23 08:59 Last Admin: 06/15/23 08:54 Dose: 50 mg Amlodipine Besylate (Amlodipine Besylate 5 Mg Tab) 10 mg PO QAM [facility] Stop: 07/13/23 08:59 Last Admin: 06/15/23 08:54 Dose: 10 mg Aspirin (Aspirin 81 Mg Ectab) 81 mg PO QAM [facility] Stop: 07/12/23 08:59 Last Admin: 06/15/23 08:53 Dose: 81 mg Atorvastatin Calcium (Atorvastatin 40 Mg Tab) 40 mg PO HS [facility] Stop: 07/12/23 20:59 Last Admin: 06/14/23 21:12 Dose: 40 mg Cinacalcet (Cinacalcet Hcl 30 Mg Tab) 30 mg PO DAILY [facility] Stop: 07/12/23 16:59 Last Admin: 06/15/23 08:53 Dose: 30 mg Doxycycline Hyclate (Doxycycline Hyclate 100 Mg Cap) 100 mg PO BID [facility] Stop: 06/19/23 08:59 Last Admin: 06/15/23 08:54 Dose: 100 mg Epoetin Jere (Epoetin Jere 10,000 Units/Ml Vial) 10,000 units IV TODAY@0700 [facility] Stop: 06/16/23 12:00 Ergocalciferol (Ergocalciferol 50,000 Units 1250 Mcg Cap) 50,000 units PO We [facility] Stop: 07/14/23 08:59 Last Admin: 06/14/23 14:19 Dose: 50,000 units Gabapentin (Gabapentin 100 Mg Cap) 100 mg PO MoWeFr [facility] Stop: 07/12/23 15:59 Last Admin: 06/14/23 17:15 Dose: 100 mg Heparin Sodium (Porcine) (Heparin Sod 5,000 Unit/0.5 Ml Vial) 5,000 units SQ Q8 [facility] Stop: 07/12/23 06:03 Last Admin: 06/15/23 12:54 Dose: Not Given Hydralazine HCl (Hydralazine Tab 50 Mg Tab) 100 mg PO TID [facility] Stop: 07/12/23 08:59 Last Admin: 06/15/23 13:01 Dose: 100 mg Promethazine HCl 6.25 mg/ (Sodium Chloride) 50.25 mls @ 201 mls/hr IV Q6H PRN PRN Reason: Nausea And Vomiting Stop: 07/12/23 04:18 Cefepime HCl 1,000 mg/ Syringe 10 mls @ 5 mls/min IV Q24H [facility]; Protocol Stop: 06/19/23 06:59 Last Admin: 06/15/23 05:58 Dose: 5 mls/min Sodium Chloride (Nss) 1,000 mls @ 0 mls/hr IV .Q0M PRN PRN Reason: For Hemodialysis Use ONLY Stop: 06/16/23 12:59 Isosorbide Dinitrate (Isosorbide Dinitrate 20 Mg Tab) 20 mg PO TID@0700,1200,1700 [facility] Stop: 07/12/23 11:59 Last Admin: 06/15/23 12:53 Dose: 20 mg Metoprolol Succinate (Metoprolol Succ 50mg Ext Rel Tab) 100 mg PO QDD [facility] Stop: 07/12/23 16:29 Last Admin: 06/14/23 17:15 Dose: 100 mg Miscellaneous (Auryxia~Order Awaiting Action) 1 each N/A QS [facility] Stop: 07/12/23 07:59 Last Admin: 06/15/23 07:38 Dose: Not Given Patiromer (Patiromer Calcium Sorbitex 8.4 Gm Pack) 16.8 gm PO Q24H [facility] Stop: 07/12/23 11:59 Last Admin: 06/15/23 12:56 Dose: 16.8 gm Sevelamer HCl (Sevelamer Hcl 800 Mg Tablet) 800 mg PO TIDM [facility] Stop: 07/12/23 07:59 Last Admin: 06/15/23 12:54 Dose: 800 mg Tramadol HCl (Tramadol Hcl 50 Mg Tablet) 25 - 50 mg PO Q4H PRN PRN Reason: Pain Stop: 07/12/23 04:18
[2023-06-15] MEDS: METOPROLOL SUCC 50MG EXT REL TAB PO SCH (17:24)
[2023-06-15] MEDS: ATORVASTATIN 40 MG TAB PO SCH (20:00)
[2023-06-16] MEDS: AURYXIA~ORDER AWAITING ACTION SCH ×2 (03:03→07:56)
[2023-06-16 05:52] LABS: Basophils # (auto) 0.04 K/uL (0.00-0.20); Basophils % (auto) 0.5 %; Eosinophils # (auto) 0.26 K/uL (0.00-0.50); Eosinophils % (auto) 3.2 %; Hemoglobin 9.5 g/dl (14.0-18.0); Immature Granulocytes # (auto) 0.06 K/uL (0.01-0.20); Immature Granulocytes % (auto) 0.7 %; Lymphocytes # (auto) 1.27 K/uL (1.20-3.40); Lymphocytes % (auto) 15.5 %; Mean Corpuscular Hemoglobin 28.9 pg (25.0-34.0); Mean Corpuscular Hgb Conc 30.6 g/dL (32.0-36.0); Mean Corpuscular Volume 94.2 fL (80.0-100.0); Mean Platelet Volume 10.4 fL (9.4-12.4); Monocytes # (auto) 0.89 K/uL (0.11-0.59); Monocytes % (auto) 10.8 %; Neutrophils % (auto) 69.3 %; Platelet Count 276 K/uL (130-400); RDW Coefficient of Variation 15.1 % (11.5-14.5); Red Blood Count 3.29 M/uL (4.70-6.10); White Blood Count 8.22 K/ul (4.8-10.8)
[2023-06-16] MEDS: HEPARIN SOD 5,000 UNIT/0.5 ML VIAL SQ SCH ×2 (06:06→13:55)
[2023-06-16] MEDS: ISOSORBIDE DINITRATE 20 MG TAB PO SCH ×2 (06:08→13:56)
[2023-06-16 06:20] LABS: BUN Creatinine Ratio 4.5 (10-20); Calcium 8.6 mg/dl (8.6-10.3); Creatinine Clr Calc Pharmacy 8.1 ml/min; Est GFR (African American) 6.9 ml/min; Potassium 4.1 mmol/L (3.5-5.1)
[2023-06-16] MEDS ORDERED: SODIUM CHLORIDE 0.9% 1,000 ML IV PRN (07:00)
[2023-06-16] MEDS ORDERED: EPOETIN ALFA 10,000 UNITS/ML VIAL IV SCH (07:00)
--- NOTE | 2023-06-16 08:52 | Procedure Note ---
Procedure Note Date of Service June 16, 2023 Note Procedure: Diagnostic therapeutic ultrasound-guided catheter thoracentesis, left Tool And Die Assembler: Dr. Ismael Pickering Indication: Pleural effusion Consent: Signed by patient and verified with timeout prior to procedure Anesthesia: 8 mL's 1% lidocaine without epinephrine local. Procedure: Consent was verified and timeout performed. Appropriate imaging studies were reviewed prior to the procedure. Patient was placed in a seated position and limited thoracic ultrasound was performed of the left chest. A moderate size left effusion was noted with some compressive atelectasis. Site appropriate for thoracentesis was selected. The skin was prepped and draped in normal sterile fashion. Lidocaine was used for local analgesia. Fluid was aspirated via the finder needle. A small skin miah was made with the scalpel and the catheter over the needle apparatus was advanced over the rib into the pleural space. Using the syringe one-way valve system, a total of 850 mL's of blood-tinged fluid was removed. Procedure was terminated due to patient coughing and experiencing pain. The catheter was removed and observed to be intact. A sterile dressing was applied. Post procedure chest x-ray was ordered. Fluid was not sent The patient tolerated the procedure well without obvious complication Recommend the patient establish a standing appointment with interventional radiology every 3 weeks for serial therapeutic thoracentesis. Coding CPT Codes Pulmonary/Thoracic - Pulmonary and Thoracic: 12234 Thoracentesis w imaging ([id number]) [facility] Procedure Codes (Charges) Pulmonary/Thoracic Procedure 1: Pulmonary and Thoracic: 47044 Thoracentesis w imaging
--- NOTE | 2023-06-16 09:36 | XRay Report ---
SINGLE VIEW CHEST CLINICAL HISTORY: Status post left thoracentesis. FINDINGS: 2 AP, portable, upright chest radiographs are compared to study date 06/14/2023 and correla vangie with chest CT dated 06/12/2023. The heart is enlarged and noting atherosclerotic calcification of the thoracic aorta. Pulmonary vascular congestion has almost completely resolved. There are layering pleural effusions with dependent consolidation. The left pleural effusion is decreased in size from previous. No pneumothorax is seen. The skeletal structures are osteopenic. The bony thorax is grossly intact. IMPRESSION: 1. No pneumothorax is identified post procedure. 2. Cardiomegaly. Pulmonary vascular congestion has almost completely resolved. 3. Small pleural effusions with dependent consolidation. The left pleural effusion has significantly decreased in size from previous. ACT 112: Negative or not required by law. Electronically signed by: Tone Mccain M.D. 06/16/2023 9:35 AM
--- NOTE | 2023-06-16 10:58 | Dialysis Progress Note ---
Date of Service June 16, 2023 Assessment & Plan Admission and Anticipated Discharge Date Admission Date: June 12, 2023 Subjective Assessment & Plan (1) Acute hypoxemic respiratory failure: In the setting of fluid overload/pneumonia with fever and also recurrent pleural effusion (2) ESRD (end stage renal disease) on dialysis: Patient is a chronic dialysis patient Monday as an in center hemodialysis through his AV fistula. However he did miss dialysis on Monday which means his last dialysis was almost 5 days ago. He does not make urine anymore and has tendency of developing pulmonary edema with symptoms easily. for today We will do for 4 hours on a 2K bath and try to take as much fluid as we are allowed by the patient--he said 2.5 kilo only. In the past he has Dictated how much fluid we can remove and also the time duration of the dialysis. (3) Recurrent pleural effusion: This has been an ongoing issue and he is followed closely by pulmonary and gets serial thoracocentesis. He has already evaluated by pulmonary at [facility] and was felt not a candidate for pleurodesis (4) Pneumonia: As per primary team. Given presence of fever reasonable to give him antibiotic S---Seen during Dialysis. Just had Pleural tap--Bloody so no heparin given. No complaints. AVF fine and BP is fine. So far tolerating well. Physical Exam GENERAL - no acute distress. . SKIN - Without rashes or lesions. MOUTH/OROPHARYNX - MM moist. Neck is supple no jugular venous distention LUNGS - diminished breath sounds at the bases with slight crackles. CARDIAC - RRR with S1/S2. No murmur, rubs, or gallops appreciated. ABDOMEN -soft nontender EXTREMITIES -trace edema. LUE fistula in place. Results & Data Vital Signs (Past 12 Hours) Vital Signs Temp Pulse Pulse Pulse Resp BP BP 06/16/23 10:30 54 L 125/66 06/16/23 10:00 50 L 130/65 06/16/23 09:27 36.5 C 70 06/16/23 08:00 72 06/16/23 07:16 36.5 C 61 18 145/76 H 06/16/23 03:00 36.8 C 77 20 150/72 H 06/15/23 23:23 73 06/15/23 23:00 36.5 C 120 H 21 163/70 H Pulse Ox O2 Del Method O2 Flow Rate 06/16/23 10:30 06/16/23 10:00 06/16/23 09:27 06/16/23 08:00 06/16/23 07:16 95 Nasal Cannula 2 06/16/23 03:00 94 Room Air 06/15/23 23:23 06/15/23 23:00 90 Room Air
[2023-06-16] MEDS: SEVELAMER HCL 800 MG TABLET PO SCH ×2 (11:31→13:56)
[2023-06-16] MEDS: hydrALAZINE TAB 50 MG TAB PO SCH ×2 (12:29→13:56)
[2023-06-16] MEDS: CEFEPIME 1,000 MG in SYRINGE 0 ML IV SCH ×2 (13:55→15:18)
[2023-06-16] MEDS: DOXYCYCLINE HYCLATE 100 MG CAP PO SCH (13:56)
[2023-06-16] MEDS: ASPIRIN 81 MG ECTAB PO SCH (13:56)
[2023-06-16] MEDS: amLODIPine BESYLATE 5 MG TAB PO SCH (13:57)
[2023-06-16] MEDS: allopurinoL 100 MG TAB PO SCH (13:57)
[2023-06-16] MEDS: CINACALCET HCL 30 MG TAB PO SCH (13:57)
[2023-06-16] MEDS: PATIROMER CALCIUM SORBITEX 8.4 GM PACK PO SCH (13:57)
--- NOTE | 2023-06-16 14:28 | Hospitalist Progress Note ---
Date of Service June 16, 2023 Assessment & Plan (1) Acute hypoxemic respiratory failure: Plan: 1) Acute hypoxemic respiratory failure: Plan: Acute CHF associated with mild to moderate bilateral pleural effusion Missed dialysis. LAst dialysis 5 days ago. Pleural effusions recurrent Has been getting dialysis and denies any symptoms as of this afternoon Lying flat without any shortness of breath Has been moving in the room without any difficulties or dizziness He wants to go home and they are discussed with the daughter in detail Discussed with the director life sales Was not discharged home yesterday due to concern of having more shortness of breath Denies any symptoms remains medically stable to be discharged Pneumonia Questionable pneumonia.on antibiotics.on cefepime and doxy will complete the course. Chest x-ray today showed small pleural effusion with dependent consolidation Will finish the course of antibiotic for a total of 7 days Acute Systolic chf Complicated by valvular heart disease. Much improved with dialysis Remains minimally short of breath at rest Has had dialysis today Pleural effusions Mild to moderate pleural effusion with history of chronic effusion Plan for IR thoracocentesis in am there is plan IR thoracocentesis monthly but daughter doubts patient will do it will do thoracentesis while in the hospital as patient seems non complaint Thoracentesis was not possible due to hemodialysis with heparin today Will have outpatient follow-up for possible thoracentesis on nonhemodialysis day Repeat chest x-ray showed slight improvement of the edema but left more than right pleural effusion persist We will try to get thoracentesis by the batch tester tomorrow and plan to discharge the patient following dialysis Status post left thoracentesis with 800 mL of fluid taken out Repeat x-ray did show significant improvement of the effusion and near complete resolution of pulmonary vascular congestion ESRD on HD Nephro on board. Discussed with the director life sales and he will be discharged home this afternoon with next scheduled hemodialysis on Monday That was communicated with the daughter who is in agreement with Will continue hemodialysis as an outpatient Hyperkalemia on veltassa at home received Lokelma insulin and dextrose holding losartan s/p dialysis improved Elevated troponin mostly from resp distress and esrd trending down HTN, on amlodipine, toprol xl, isosorbide dinitrate,hydralazine holding losartan will monitor. seems stable paroxysmal atrial flutter, patient currently NSR on toprol xl. hyperlipidemia, on statin Rx prediabetes, hemoglobin A1c 5.8 2021 chronic anemia, hemoglobin at baseline dvt px hep sub q He will be discharged home this afternoon Admission and Anticipated Discharge Date Admission Date: June 12, 2023 Subjective 06/14/2023 The patient was seen and examined in telemetry unit He is a status post hemodialysis but did not have thoracentesis as because he received intravenous heparin and this is not done on dialysis today He denies any symptoms of shortness of breath, abdominal distention, nausea no vomiting, any dizziness with ambulation He wants to go home 06/15/2023 The patient was seen and examined in telemetry unit He has been stable with minimal shortness of breath at rest Denies any acute pain, nausea or vomiting 06/16/2023 The patient was seen and examined in telemetry unit He is a status post left thoracentesis of 800 mL this morning and status post dialysis Has been feeling much better and denies any significant symptoms Minimal pain at the thoracentesis site Repeat x-ray is showing improvement of effusion He will be discharged home this afternoon Review of Systems Review of Systems: All systems reviewed and are unremarkable except as noted below Physical Exam Physical Exam: Lying in bed comfortably Constitutional: well developed and well nourished; not ill appearing Eyes: PERRL, conjunctivae normal, anicteric sclerae ENMT: external ear and nose normal, oropharynx normal Neck: trachea midline, no thyromegaly Respiratory: no respiratory distress Auscultation: lungs clear to auscultation bilaterally and + diminished lung sounds; no crackles Cardiovascular: Rate/Rhythm: regular rate and regular rhythm; not tachycardic Heart Sounds: normal S1 and normal S2; no murmur Extremities: no edema Gastrointestinal (Abdomen): Inspection/Auscultation: normal bowel sounds; abdomen not distended Percussion/Palpation: abdomen soft; abdomen nontender Neurologic: normal touch/pain/proprioception and moves all extremities; no focal motor deficits Lymphatic: no cervical or axillary lymphadenopathy Results & Data Results & Data Vital Signs (Past 12 Hours) Vital Signs Temp Pulse Pulse Pulse Resp BP BP 06/16/23 13:40 36.6 C 55 L 139/91 06/16/23 13:30 52 L 125/79 06/16/23 13:00 54 L 110/86 06/16/23 12:30 58 L 122/60 06/16/23 12:00 52 L 148/79 H 06/16/23 11:30 54 L 95/68 L 06/16/23 11:00 54 L 135/75 06/16/23 10:30 54 L 125/66 06/16/23 10:00 50 L 130/65 06/16/23 09:27 36.5 C 70 06/16/23 08:00 72 06/16/23 07:16 36.5 C 61 18 145/76 H 06/16/23 03:00 36.8 C 77 20 150/72 H Pulse Ox O2 Del Method O2 Flow Rate 06/16/23 13:40 06/16/23 13:30 06/16/23 13:00 06/16/23 12:30 06/16/23 12:00 06/16/23 11:30 06/16/23 11:00 06/16/23 10:30 06/16/23 10:00 06/16/23 09:27 06/16/23 08:00 06/16/23 07:16 95 Nasal Cannula 2 06/16/23 03:00 94 Room Air Laboratory Results Short CBC 06/16/23 Range/Units 05:23 WBC 8.22 (4.8-10.8) K/ul Hgb 9.5 L (14.0-18.0) g/dl Hct 31.0 L (42.0-52.0) % Plt Count 276 (130-400) K/uL BMP 06/16/23 05:23 Sodium 138 Potassium 4.1 Chloride 102 Carbon Dioxide 25 BUN 37 H D Creatinine 8.29 H* D Glucose 71 Calcium 8.6 Medications Administered Current Inpatient Medications Acetaminophen (Acetaminophen 325 Mg Tab) 650 mg PO Q4H PRN PRN Reason: Pain or Fever Stop: 07/12/23 06:03 Allopurinol (Allopurinol 100 Mg Tab) 50 mg PO DAILY [facility] Stop: 07/12/23 08:59 Last Admin: 06/16/23 13:57 Dose: 50 mg Amlodipine Besylate (Amlodipine Besylate 5 Mg Tab) 10 mg PO QAM [facility] Stop: 07/13/23 08:59 Last Admin: 06/16/23 13:57 Dose: 10 mg Aspirin (Aspirin 81 Mg Ectab) 81 mg PO QAM [facility] Stop: 07/12/23 08:59 Last Admin: 06/16/23 13:56 Dose: 81 mg Atorvastatin Calcium (Atorvastatin 40 Mg Tab) 40 mg PO HS [facility] Stop: 07/12/23 20:59 Last Admin: 06/15/23 20:00 Dose: 40 mg Cinacalcet (Cinacalcet Hcl 30 Mg Tab) 30 mg PO DAILY [facility] Stop: 07/12/23 16:59 Last Admin: 06/16/23 13:57 Dose: 30 mg Doxycycline Hyclate (Doxycycline Hyclate 100 Mg Cap) 100 mg PO BID [facility] Stop: 06/19/23 08:59 Last Admin: 06/16/23 13:56 Dose: 100 mg Ergocalciferol (Ergocalciferol 50,000 Units 1250 Mcg Cap) 50,000 units PO We [facility] Stop: 07/14/23 08:59 Last Admin: 06/14/23 14:19 Dose: 50,000 units Gabapentin (Gabapentin 100 Mg Cap) 100 mg PO MoWeFr [facility] Stop: 07/12/23 15:59 Last Admin: 06/14/23 17:15 Dose: 100 mg Heparin Sodium (Porcine) (Heparin Sod 5,000 Unit/0.5 Ml Vial) 5,000 units SQ Q8 [facility] Stop: 07/12/23 06:03 Last Admin: 06/16/23 13:55 Dose: 5,000 units Hydralazine HCl (Hydralazine Tab 50 Mg Tab) 100 mg PO TID [facility] Stop: 07/12/23 08:59 Last Admin: 06/16/23 13:56 Dose: 100 mg Promethazine HCl 6.25 mg/ (Sodium Chloride) 50.25 mls @ 201 mls/hr IV Q6H PRN PRN Reason: Nausea And Vomiting Stop: 07/12/23 04:18 Cefepime HCl 1,000 mg/ Syringe 10 mls @ 5 mls/min IV Q24H [facility]; Protocol Stop: 06/19/23 06:59 Last Admin: 06/16/23 13:55 Dose: 5 mls/min Isosorbide Dinitrate (Isosorbide Dinitrate 20 Mg Tab) 20 mg PO TID@0700,1200,1700 [facility] Stop: 07/12/23 11:59 Last Admin: 06/16/23 13:56 Dose: 20 mg Metoprolol Succinate (Metoprolol Succ 50mg Ext Rel Tab) 100 mg PO QDD [facility] Stop: 07/12/23 16:29 Last Admin: 06/15/23 17:24 Dose: 100 mg Miscellaneous (Auryxia~Order Awaiting Action) 1 each N/A QS [facility] Stop: 07/12/23 07:59 Last Admin: 06/16/23 07:56 Dose: Not Given Patiromer (Patiromer Calcium Sorbitex 8.4 Gm Pack) 16.8 gm PO Q24H [facility] Stop: 07/12/23 11:59 Last Admin: 06/16/23 13:57 Dose: Not Given Sevelamer HCl (Sevelamer Hcl 800 Mg Tablet) 800 mg PO TIDM [facility] Stop: 07/12/23 07:59 Last Admin: 06/16/23 13:56 Dose: 800 mg Tramadol HCl (Tramadol Hcl 50 Mg Tablet) 25 - 50 mg PO Q4H PRN PRN Reason: Pain Stop: 07/12/23 04:18
[2023-06-16] MEDS ORDERED: CEFDINIR 300 MG CAP PO SCH (14:45)
--- NOTE | 2023-06-16 18:50 | Discharge Summary ---
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 Limited history from patient secondary to language barrier. Medical history significant for chronic systolic heart failure (EF 45 to 50%, TTE 2022), paroxysmal atrial flutter,valvular heart disease (mild /mild TR/MR), aortic root dilatation, hypertension, hyperlipidemia, ESRD on HD, recurrent pleural effusions, P ANCA vasculitis as per records, prediabetes, chronic anemia (baseline hemoglobin 9-10). Monthly admissions since July,. Recent [facility] confinement last month for respiratory failure secondary to recurrent pleural effusions status post thoracentesis. Palliative care consulted to discuss goals of care with patient and family given recurrent admissions over the last several months. Patient and family communicated desire to still pursue active treatments for chronic medical conditions. Outpatient pulmonology follow-up visit 3 weeks ago. Recurrent pleural effusions attributed to underlying end-stage renal disease, heart failure and diet noncompliance as per note. Serial IR guided thoracentesis recommended outpatient. Junky cough symptoms noted over the last couple of weeks. Not sure about sick contacts. Denies aspiration. No fever, no chills. No consultations done. Patient unable to undergo hemodialysis 2 days ago due to access issues. 2 days ago, patient noted worsening shortness of breath and cough symptoms. Achy central chest pain from coughing. O2 sats 80s upon arrival at the ER. Vancomycin and Zosyn administered at the ER. 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, patient born in [place] Admission Exam Per Admitting Provider Physical Exam: GENERAL: uncomfortable, respiratory distress, chronically ill SKIN: Pallor, warm HEENT: alopecia, bespectacled, pale palpebral conjunctivae, no ptosis, dry buccal mucosa, nasal cannula in place NECK : Supple, no tenderness CHEST : Decreased breath sounds, no tenderness HEART : RRR, no obvious murmurs ABDOMEN: Some distention, nontender EXTREMITIES : Minimal LE swelling, no LE tenderness, no other conspicuous deformities noted NEUROLOGIC : Coherent, no facial asymmetry, no other gross focality Principal Diagnosis Acute hypoxic respiratory failure, congestive heart failure, bilateral pleural effusion, end-stage renal disease on hemodialysis Discharge Exam Lying in bed comfortably Constitutional well developed and well nourished; not ill appearing Eyes PERRL, conjunctivae normal, anicteric sclerae ENMT external ear and nose normal, oropharynx normal Neck trachea midline, no thyromegaly Respiratory no respiratory distress Auscultation: lungs clear to auscultation bilaterally and + diminished lung sounds; no crackles Cardiovascular Rate/Rhythm: regular rate and regular rhythm; not tachycardic Heart Sounds: normal S1 and normal S2; no murmur Extremities: no edema Gastrointestinal (Abdomen) Inspection/Auscultation: normal bowel sounds; abdomen not distended Percussion/Palpation: abdomen soft; abdomen nontender Neurologic normal touch/pain/proprioception and moves all extremities; no focal motor deficits Lymphatic no cervical or axillary lymphadenopathy Discharge Data Allergies Allergy/AdvReac Type Severity Reaction Status Date / Time No Known Allergies Allergy Verified 03/26/23 12:21 Consultations 06/12/23 04:39 ED Decision to Admit Stat 06/12/23 06:04 Consult Nephrology Routine 06/12/23 06:33 Consult Pulmonology Routine Ordered Studies 06/12/23 04:03 CT chest diagnostic wo con Stat Hospital Course (1) Acute hypoxemic respiratory failure: 1) Acute hypoxemic respiratory failure: Plan: Acute CHF associated with mild to moderate bilateral pleural effusion Missed dialysis. LAst dialysis 5 days ago. Pleural effusions recurrent Has been getting dialysis and denies any symptoms as of this afternoon Lying flat without any shortness of breath Has been moving in the room without any difficulties or dizziness He wants to go home and they are discussed with the daughter in detail Discussed with the [employer]ophead sewer Was not discharged home yesterday due to concern of having more shortness of breath Denies any symptoms remains medically stable to be discharged Pneumonia Questionable pneumonia.on antibiotics.on cefepime and doxy will complete the course. Chest x-ray today showed small pleural effusion with dependent consolidation Will finish the course of antibiotic for a total of 7 days Acute Systolic chf Complicated by valvular heart disease. Much improved with dialysis Remains minimally short of breath at rest Has had dialysis today Pleural effusions Mild to moderate pleural effusion with history of chronic effusion Plan for IR thoracocentesis in am there is plan IR thoracocentesis monthly but daughter doubts patient will do it will do thoracentesis while in the hospital as patient seems non complaint Thoracentesis was not possible due to hemodialysis with heparin today Will have outpatient follow-up for possible thoracentesis on nonhemodialysis day Repeat chest x-ray showed slight improvement of the edema but left more than right pleural effusion persist We will try to get thoracentesis by the ballroom dance instructor tomorrow and plan to discharge the patient following dialysis Status post left thoracentesis with 800 mL of fluid taken out Repeat x-ray did show significant improvement of the effusion and near complete resolution of pulmonary vascular congestion ESRD on HD Nephro on board. Discussed with the mophead sewer and he will be discharged home this afternoon with next scheduled hemodialysis on Monday That was communicated with the daughter who is in agreement with Will continue hemodialysis as an outpatient Hyperkalemia on veltassa at home received Lokelma insulin and dextrose holding losartan s/p dialysis improved Elevated troponin mostly from resp distress and esrd trending down HTN, on amlodipine, toprol xl, isosorbide dinitrate,hydralazine holding losartan will monitor. seems stable paroxysmal atrial flutter, patient currently NSR on toprol xl. hyperlipidemia, on statin Rx prediabetes, hemoglobin A1c 5.8 2021 chronic anemia, hemoglobin at baseline dvt px hep sub q He will be discharged home this afternoon Total Time Total Time Spent Total Time Spent (In Minutes): 35 minutes Discharge Plan Discharge Items Patient Disposition: Home - Self-Care Reason For Visit: RESP FAILURE Discharge Diagnosis: Acute hypoxic respiratory failure, congestive heart failure, bilateral pleural effusion, end-stage renal disease on hemodialysis Condition on Discharge: Fair Activity: Resume your previous activity Non-emergency contact: Primary Care Provider Call non-emergency contact if: you have any medication questions and your sym ptoms worsen Follow-up/Referrals: Cisco Starkey MD [Primary Care Provider] - 06/22/23 11:20 am Diet: Dialysis Renal Addtl Attending Provider Instructions: Please take precautions to avoid falls Please finish the course of antibiotic Take your medications as advised Please keep appointment with you with your healthcare provider and dialysis Keep using oxygen at home as advised You can take [id number] probiotics Advised to have outpatient/radiology appointment every 3 weeks for possible thoracentesis Pending Studies at Discharge: No Stand-Alone Forms: [facility], Smoking Cessation Medications and DC Order Prescriptions: New doxycycline hyclate 100 mg Capsule 100 mg PO BID Qty: 7 0RF cefdinir 300 mg Capsule 300 mg PO Q48H Qty: 3 0RF Continued cinacalcet [Sensipar] 30 mg tablet 30 mg PO DAILY Rx Instructions: [facility] unable to verify LAST FILLED 10/20/22 FOR 30 DAYS. ergocalciferol (vitamin D2) [Vitamin D2] 1,250 mcg (50,000 unit) capsule 1,250 mcg PO WK amlodipine 10 mg tablet 10 mg PO DAILY Auryxia 210 mg iron tablet 420 mg PO .WITH MEALS & SNACKS Veltassa 16.8 gram powder in packet 16.8 g PO QAM [facility] tablet 1 tab PO DAILY gabapentin 100 mg capsule 100 mg PO [id number] Rx Instructions: take after dialysis on MONDAY,MONDAY,MONDAY isosorbide dinitrate 20 mg Tablet 20 mg PO TID@0700,1200,1700 Qty: 90 0RF Rx Instructions: LAST FILL IN metoprolol succinate 50 mg Tablet Extended Release 24 Hr 100 mg PO QDD Qty: 60 0RF Hold Instructions: Resume on 04/27/23. Hold this medication until told to resume by your Payment Manager due to bradycardia aspirin 81 mg Tablet,Delayed Release (Dr/Ec) 81 mg PO QAM Qty: 30 0RF losartan [Cozaar] 50 mg Tablet 50 mg PO AMHS Qty: 30 0RF hydralazine 100 mg tablet 100 mg PO TID Qty: 90 0RF sevelamer carbonate 800 mg tablet 800 mg PO TIDM Qty: 90 0RF Rx Instructions: & SNACKS, PER EXT MED HX. 6 tablets daily atorvastatin 40 mg tablet 40 mg PO HS Qty: 30 0RF allopurinol 100 mg tablet 50 mg PO DAILY Qty: 30 0RF Discharge Orders: Discharge Order (Routine); Ordered 06/16/23 Ordered By: Taj Ramos Admission Data Admit Date/Time: 06/12/23 04:17 Attending Provider: Taj Ramos Admit Provider: Dawson De Los Santos Primary Care Provider: Cisco Starkey Other Providers: Dawson De Los Santos; Rita Munson; Maicol Damon; Yocasta Morris Japheth E.; Dustin Callejas; Angela Michel; Kenan Colby; Mitchell Brown; Ismael Pickering; Amaris Sousa; Olivia Nguyen; Vaishali Seaman; Justin Starkey; Hiram Gatica; Rima Domingo; Mike Madrigal. Other Interventions: Discharge Summary Assessment (RN) Last Done: 06/16/23 14:49
== END 2023-06-16 15:20 | disposition home or self-care (01) | DRG 640 ==
LOC: ED 02:11 → EDINP 04:17 → SUATTDRO 04:17 → EDINP 21:00 → 4W 22:34

== ENCOUNTER 2023-08-28 01:34 | Inpatient (IN) ==
--- NOTE | 2023-08-28 02:11 | Emergency Department Note ---
Impression & Plan Congestive heart failure Admit to the [facility] ED Provider Note NAME: DIMAS ERVIN AGE: 67 SEX: Male INFORMANT: Patient ED PROVIDER(S): Ashli Griffin DO CHIEF COMPLAINT: Chest pain and shortness of breath PLAN: Disposition: Admit to the [facility] MEDICAL DECISION MAKING: This is a 67-year-old male patient with extensive past medical history including end-stage renal disease, recurrent pleural effusion and congestive heart failure who presents to the emergency department with a 2-day history of increasing chest pain and shortness of breath. Patient does wear 1.5 L of home oxygen but states that he is having increasing cough and shortness of breath and developed chest pain tonight. Care/management discussed with: The patient through an still cleaner and with the [facility] Triage Nursing notes: Reviewed and agree with them. Vital Signs: reviewed and remarkable for hypertension, tachycardia and hypoxia Additional History obtained from: EMS; was able to obtain history from the patient with the help of a [place] still cleaner Chronic Medical/Social Conditions affecting care: End-stage renal disease on dialysis; recurrent pleural effusions requiring thoracentesis Prior/ Outside/ External records reviewed: Pulmonary medicine notes from previous inpatient stay in May 2023 as well as procedure note from 08/22/2023-thoracentesis Differential Diagnosis: Pneumonia, recurrent pleural effusion, congestive heart failure, STEMI, NSTEMI Diagnostics, independently interpreted by me: ECG: Normal sinus rhythm at a rate of [address] There is ST segment depression in leads I, 2, V5, V6 which is unchanged from previous EKGs. Cardiac Monitoring: Sinus tachycardia at 103 Imaging studies: Portable chest x-ray: Cardiomegaly with pulmonary edema and bilateral pleural effusions as per my independent interpretation HPI: 67 year old Male arrives for evaluation of chest pain and shortness of breath. Patient describes chest pain over the past 2 days with worsening shortness of breath and cough throughout the day today. Patient wears 1.5 L of oxygen at home but describes increased difficulty breathing. PAST MEDICAL HISTORY: See Below, PAST SURGICAL HISTORY: See Below, SOCIAL HISTORY: See Below, HOME MEDICATIONS: See list ALLERGIES: None VITALS: See Below PHYSICAL EXAMINATION: HEENT: Head - normocephalic and atraumatic. Pupils are equal, round, and reactive to light. Extraocular eye muscles are intact, and sclera are anicteric. Nose - moist nasal mucosa without discharge. Mouth - moist buccal mucosa. Oropharynx is nonerythematous and there is no tonsillar exudate or edema noted. Neck: Supple; no JVD or cervical lymphadenopathy Heart: Tachycardic rate and regular rhythm there is a normal S1 and S2 with no murmurs, clicks, or gallops appreciated. Lungs: Diminished breath sounds at both lung bases with diffuse Rales Abdomen: Soft, completely nontender, nondistended, with good bowel sounds. There are no palpable pulsatile masses or hepatosplenomegaly. There is no guarding, rigidity, or rebound noted. Extremities: No evidence of cyanosis, clubbing, or edema. There are easily palpable peripheral pulses. Skin: warm and dry with good turgor and no rashes. Emergency department course: The patient was evaluated in room B-12. A twelve- lead EKG was obtained. An order was placed for continuous cardiac monitoring. The patient was in a sinus tachycardia at a rate of 103. A twelve-lead EKG was obtained as described above. A chest x-ray was performed. Patient remain on 8 L of oxygen upon my evaluation to maintain O2 saturations above 90%. I did review previous records including thoracentesis note where he had 700 mL of fluid removed just 5 days ago. Patient remains hemodynamically stable here in the emergency department on supplemental oxygen. I discussed the case with the [facility] and he will evaluate for further inpatient care. Past Med/Surg History Medical History Palliative care encounter Recurrent pleural effusion Chest pain Acute respiratory failure with hypoxia Hypoxia Hypervolemia SOB (shortness of breath) Heart failure with acute decompensation, type unknown Acute hypoxemic respiratory failure Anemia of chronic disease Fluid overload Pleural effusion chronic, recurrent Hyperkalemia Symptomatic anemia Anemia Acute upper gastrointestinal bleeding ESRD (end stage renal disease) on dialysis HD patient follows w/ Dr Jeimy Yu [facility] 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 AV fistula Kidney transplant candidate reason for colonoscopy to get on list Hypertension Restless leg syndrome Nephrolithiasis Benign prostatic hyperplasia with urinary obstruction Surgical History History of colonoscopy H/O inguinal hernia repair History of cystoscopy Status post creation of arteriovenous fistula left arm History of tooth extraction History of thoracentesis Family History Other No family history of adverse response to anesthesia No significant family history Social History Smoking Status: Former smoker Tobacco Type: Cigarettes Second Hand Exposure: No; Do You Dip or Chew Tobacco: No; Hx Alcohol Use: No Hx Substance Use: No Preferred Language: [place] Communication Ability: Effective Communication Ability Comment: pt using cell phone to translate Communication Tools: IPad Pilot [employer] 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 Required: No Beliefs That Will Affect Care: None marital status: Current Living Situation: Family current occupational status: employed Feels Safe at Home: Yes Safety Concerns: Feels Safe At This Time Assistive Devices: Glasses Allergies Allergies Allergy/AdvReac Type Severity Reaction Status Date / Time No Known Allergies Allergy Verified 08/28/23 02:39 Home Meds Home Medications Medication Instructions Recorded Confirmed cinacalcet 30 mg tablet (Sensipar) 30 mg PO DAILY 08/19/22 08/28/23 ergocalciferol (vitamin D2) 1,250 1,250 mcg PO WK 04/15/23 08/28/23 mcg (50,000 unit) capsule (Vitamin D2) amlodipine 10 mg tablet 10 mg PO DAILY 06/12/23 08/28/23 Sodium Chloride Tab 250 mg PO Q OTHER DAY 08/28/23 08/28/23 allopurinol 100 mg tablet 100 mg PO DAILY 08/28/23 08/28/23 calcitriol 0.25 mcg capsule 0.25 mcg PO DIRECTED 08/28/23 08/28/23 carvedilol 12.5 mg tablet 6.25 mg PO BID 08/28/23 08/28/23 guaifenesin 600 mg tablet, 600 mg PO BID PRN Congestion 08/28/23 08/28/23 extended release 12 hr (Mucinex) isosorbide dinitrate 20 mg tablet 20 mg PO TID 08/28/23 08/28/23 metoprolol succinate 50 mg 100 mg PO QAM 08/28/23 08/28/23 tablet,extended release 24 hr ondansetron HCl 4 mg tablet 4 mg PO Q8H PRN NAUSEA/VOMITING 08/28/23 08/28/23 patiromer calcium sorbitex 8.4 8.4 g PO QAM 08/28/23 08/28/23 gram oral powder packet (Veltassa) protein supplement 30 ea PO BID 08/28/23 08/28/23 vitamin B complex with vit C-folic 1 tab PO DAILY 08/28/23 08/28/23 acid 800 mcg-zinc 12.5 mg tablet (RenaPlex) Previous Rx's Medication Instructions Recorded atorvastatin 40 mg tablet 40 mg PO HS #30 tabs 03/28/23 hydralazine 100 mg tablet 100 mg PO TID #90 tabs 03/28/23 losartan 50 mg tablet (Cozaar) 50 mg PO AMHS #30 tabs 03/28/23 Results & Data (ED) Vital Signs Vital Signs - 24 hr 08/28/23 01:47 08/28/23 01:55 08/28/23 01:55 Temperature 37.0 C Temperature Source Oral Pulse Rate 103 H Respiratory Rate 20 Respiratory Effort / Characteristics Non-Labored Labored Respiratory Depth Normal Normal Respiratory Pattern Regular Blood Pressure 203/123 H Blood Pressure Mean 149 Pulse Oximetry 88 L 97 Oxygen Delivery Method Nasal Cannula Oxymask Oxymask Oxygen Flow Rate 2 8 8 Sepsis Recent Fever Within 48 Hours No Sepsis New/Unexplained Change in Mental Status No Sepsis Action Taken by Nursing No Action Required Laboratory Data 08/29/23 05:53 08/29/23 05:53 Lab Results 08/28/23 08/28/23 Range/Units 02:17 02:21 WBC 15.77 H (4.8-10.8) K/ul RBC 3.97 L (4.70-6.10) M/uL Hgb 11.1 L (14.0-18.0) g/dl Hct 35.5 L (42.0-52.0) % MCV 89.4 (80.0-100.0) fL MCH 28.0 (25.0-34.0) pg MCHC 31.3 L (32.0-36.0) g/dL RDW Std Deviation 53.3 H (36.4-46.3) fL RDW Coeff of Diamond 16.4 H (11.5-14.5) % Plt Count 244 (130-400) K/uL MPV 11.1 (9.4-12.4) fL Immature Gran % (Auto) 0.4 % Neut % (Auto) 85.0 % Lymph % (Auto) 4.6 % [place] % (Auto) 6.4 % Eos % (Auto) 3.1 % Baso % (Auto) 0.5 % Neut # (Auto) 13.40 H (1.40-6.50) K/uL Lymph # (Auto) 0.72 L (1.20-3.40) K/uL [place] # (Auto) 1.01 H (0.11-0.59) K/uL Eos # (Auto) 0.49 (0.00-0.50) K/uL Baso # (Auto) 0.08 (0.00-0.20) K/uL Immature Gran # (Auto) 0.07 (0.01-0.20) K/uL Sodium 140 (136-145) mmol/L Potassium 4.6 (3.5-5.1) mmol/L Chloride 98 (98-107) mmol/L Carbon Dioxide 25 (21-32) mmol/L Anion Gap 17 H (3-11) BUN 77 H (6-23) mg/dl Creatinine 9.91 H* (0.6-1.4) mg/dl Est Cr Clr Drug Dosing 6.1 ml/min Est GFR ( Amer) 5.6 ml/min Est GFR (Non-Af Amer) 4.8 ml/min BUN/Creatinine Ratio 7.8 L (10-20) Glucose 71 (70-99(Fasting)) mg/dl Calcium 10.1 (8.6-10.3) mg/dl Total Bilirubin 0.8 (0.2-1.0) mg/dl AST 14 (13-39) U/L ALT 9 (7-52) U/L Alkaline Phosphatase 72 (34-104) U/L Troponin I High Sens 308.0 H* (0-20) pg/ml Total Protein 6.6 (6.0-8.3) gm/dl Albumin 3.9 (3.4-5.0) gm/dl Globulin 2.7 (2.5-4.0) gm/dl Albumin/Globulin Ratio 1.4 (0.9-2) Lipase 15 (11-82) U/L Procalcitonin 0.24 (0-0.5) ng/ml Administered Medications Allopurinol (Allopurinol 100 Mg Tab) 100 mg PO DAILY MYLES Stop: 09/27/23 08:59 Last Admin: 08/28/23 09:40 Dose: 100 mg Documented By: JARAD Amlodipine Besylate (Amlodipine Besylate 5 Mg Tab) 10 mg PO DAILY MYLES Stop: 09/27/23 08:59 Last Admin: 08/28/23 09:40 Dose: 10 mg Documented By: JARAD Atorvastatin Calcium (Atorvastatin 40 Mg Tab) 40 mg PO HS MYLES Stop: 09/27/23 20:59 Last Admin: 08/28/23 20:09 Dose: 40 mg Documented By: SABINA Cinacalcet (Cinacalcet Hcl 30 Mg Tab) 30 mg PO DAILY [facility] Stop: 09/27/23 08:59 Last Admin: 08/28/23 09:40 Dose: 30 mg Documented By: JARAD Heparin Sodium (Porcine) (Heparin Sod 5,000 Unit/0.5 Ml Vial) 5,000 units SQ Q8 MYLES Stop: 09/27/23 05:59 Last Admin: 08/29/23 04:52 Dose: 5,000 units Documented By: Admin: 08/28/23 22:08 Dose: 5,000 units Documented By: Admin: 08/28/23 14:02 Dose: 5,000 units Documented By: Admin: 08/28/23 05:55 Dose: 5,000 units Documented By: ANDREA Hydralazine HCl (Hydralazine Tab 50 Mg Tab) 100 mg PO TID [facility] Stop: 09/27/23 08:59 Last Admin: 08/28/23 20:09 Dose: 100 mg Documented By: Admin: 08/28/23 14:02 Dose: 100 mg Documented By: Admin: 08/28/23 09:39 Dose: 100 mg Documented By: JARAD Ceftriaxone Sodium 2,000 mg/ (Dextrose) 50 mls @ 100 mls/hr IV Q24H [facility]; Protocol Stop: 09/04/23 04:59 Last Infusion: 08/29/23 05:22 Dose: Infused Documented By: Admin: 08/29/23 04:52 Dose: 100 mls/hr Documented By: Infusion: 08/28/23 05:56 Dose: Infused Documented By: Infusion: 08/28/23 05:27 Dose: 100 mls/hr Documented By: Infusion: 08/28/23 05:07 Dose: 0 mls/hr Documented By: Admin: 08/28/23 05:00 Dose: 100 mls/hr Documented By: ANDREA Doxycycline Hyclate 100 mg/ (Dextrose) 100 mls @ 50 mls/hr IV Q12H [facility] Stop: 09/04/23 04:59 Last Infusion: 08/29/23 07:13 Dose: Infused Documented By: Infusion: 08/29/23 06:10 Dose: 50 mls/hr Documented By: Infusion: 08/29/23 06:09 Dose: 100 mls/hr Documented By: Infusion: 08/29/23 05:05 Dose: 0 mls/hr Documented By: Admin: 08/29/23 04:51 Dose: 50 mls/hr Documented By: Infusion: 08/28/23 19:40 Dose: Infused Documented By: Admin: 08/28/23 18:39 Dose: 100 mls/hr Documented By: Infusion: 08/28/23 08:28 Dose: Infused Documented By: LUZ ELENA Admin: 08/28/23 05:53 Dose: 50 mls/hr Documented By: ANDREA Isosorbide Dinitrate (Isosorbide Dinitrate 20 Mg Tab) 20 mg PO TID@0700,1200,1700 [facility] Stop: 09/27/23 06:59 Last Admin: 08/29/23 06:21 Dose: 20 mg Documented By: Admin: 08/28/23 18:38 Dose: 20 mg Documented By: Admin: 08/28/23 11:53 Dose: 20 mg Documented By: Admin: 08/28/23 09:41 Dose: Not Given Documented By: JARAD Labetalol HCl (Labetalol Hcl Iv 5 Mg/Ml 20ml) 10 mg IV Q4H PRN PRN Reason: Hypertension Stop: 09/27/23 04:22 Last Admin: 08/28/23 04:54 Dose: 10 mg Documented By: ANDREA Co-signed By: SIRISHA Losartan Potassium (Losartan Potassium 50 Mg Tab) 50 mg PO AMHS [facility] Stop: 09/27/23 08:59 Last Admin: 08/28/23 20:09 Dose: 50 mg Documented By: Admin: 08/28/23 09:40 Dose: 50 mg Documented By: JARAD Metoprolol Succinate (Metoprolol Succ 50mg Ext Rel Tab) 100 mg PO QAM [facility] Stop: 09/27/23 08:59 Last Admin: 08/28/23 09:41 Dose: 100 mg Documented By: JARAD Patiromer (Patiromer Calcium Sorbitex 8.4 Gm Pack) 8.4 gm PO QAM [facility] Stop: 09/27/23 08:59 Last Admin: 08/28/23 18:39 Dose: Not Given Documented By: MS Vitamin B Complex/Folic Acid (Nephrocaps) 1 cap PO DAILY [facility] Stop: 09/27/23 08:59 Last Admin: 08/28/23 09:41 Dose: 1 cap Documented By: CAM Discontinued Medications Epoetin Jree (Epoetin Jere 10,000 Units/Ml Vial) 10,000 units IV ONE ONE Stop: 08/28/23 14:16 Last Admin: 08/28/23 17:54 Dose: 10,000 units Documented By: CC Discharge Plan Visit Data Chief Complaint: Chest Pain Stated Complaint: CHEST PAIN TROUBLE BREATHING ED Provider: Ashli Griffin Discharge Problem: Congestive heart failure Patient Disposition: Admitted As Inpatient Discharge Instructions Interventions: ED Discharge Assessment Last Done: 08/28/23 04:33
[2023-08-28 02:42] LABS: Basophils # (auto) 0.08 K/uL (0.00-0.20); Basophils % (auto) 0.5 %; Eosinophils # (auto) 0.49 K/uL (0.00-0.50); Eosinophils % (auto) 3.1 %; Hematocrit (blood only) 35.5 % (42.0-52.0); Hemoglobin 11.1 g/dl (14.0-18.0); Immature Granulocytes # (auto) 0.07 K/uL (0.01-0.20); Immature Granulocytes % (auto) 0.4 %; Lymphocytes # (auto) 0.72 K/uL (1.20-3.40); Lymphocytes % (auto) 4.6 %; Mean Corpuscular Hgb Conc 31.3 g/dL (32.0-36.0); Mean Corpuscular Volume 89.4 fL (80.0-100.0); Mean Platelet Volume 11.1 fL (9.4-12.4); Monocytes # (auto) 1.01 K/uL (0.11-0.59); Monocytes % (auto) 6.4 %; Platelet Count 244 K/uL (130-400); RDW Coefficient of Variation 16.4 % (11.5-14.5); RDW Standard Deviation 53.3 fL (36.4-46.3); Red Blood Count 3.97 M/uL (4.70-6.10); White Blood Count 15.77 K/ul (4.8-10.8)
[2023-08-28 03:01] LABS: Albumin Globulin Ratio 1.4 (0.9-2); Albumin Level 3.9 gm/dl (3.4-5.0); BUN Creatinine Ratio 7.8 (10-20); Bilirubin,Total 0.8 mg/dl (0.2-1.0); Calcium 10.1 mg/dl (8.6-10.3); Creatinine Clr Calc Pharmacy 6.1 ml/min; Est GFR (African American) 5.6 ml/min; Est GFR (Non-African American) 4.8 ml/min; Globulin 2.7 gm/dl (2.5-4.0); Potassium 4.6 mmol/L (3.5-5.1); Total Protein 6.6 gm/dl (6.0-8.3)
[2023-08-28] MEDS ORDERED: POLYETHYLENE (MIRALAX) 17 GM PACK PO PRN (04:33)
[2023-08-28] MEDS ORDERED: SODIUM CHLORIDE PO SCH (04:33)
[2023-08-28] MEDS ORDERED: NITROGLYCERIN SL 0.4 MG/TAB TAB SL PRN (04:33)
[2023-08-28] MEDS: LABETALOL HCL IV 5 MG/ML 20ML IV PRN (04:54)
[2023-08-28] MEDS: cefTRIAXone SODIUM 2,000 MG in DEXTROSE 5 % MINI-B 50 ML IV SCH (05:00)
--- NOTE | 2023-08-28 05:18 | History & Physical Report ---
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 Paroxysmal atrial flutter, valvular heart disorder, P ANCA vasculitis as per records, hypertension, aortic ectasia, history of PR, anemia of chronic disease, secondary hyperparathyroidism, hyperlipidemia, history of acute pulm edema, history of recurrent pleural effusion s/p thoracocentesis and recurrent admissions for respiratory failure and pleural effusions comes in because of shortness and chest pain. Patient is on home oxygen at 1 L. Currently requiring 4 L. Feeling short of breath since last 2 to 3 days. Having cough. Denies any fevers. Last 2 days he is having chest pain middle of the chest mild in nature. Constant pain. No radiation. Denies any headache. No earache or runny nose or sore throat. No fevers. Appetite is down since yesterday. No nausea or vomiting. No abdominal pain. Normal bowel movement. Stools are always black because he takes iron pills as per patient. Does not make any urine. Ambulating okay. Lives with his . Medical noncompliance per history. Acute on chronic hypoxemic respiratory failure On home oxygen 1 L Currently requiring 4 L Acute on chronic systolic CHF Recurrent pleural effusions Recurrent pleural effusions Getting thoracocentesis by IR frequently Recurrent admissions Had thoracocentesis twice in July 2023 Last thoracocentesis on August 22 2023 700mL of fluid was taken out from left side Seems pleural effusion has recurred Will consult pulmonary for recurrent pulm effusions Will consult IR for thoracentesis Acute on chronic systolic CHF Valvular heart disease Due for dialysis today Chest pain EKG no acute findings Troponin is 308. Has chronic elevation of troponin We will follow serial enzymes and echo Keep him n.p.o. Consult cardiology Telemetry floor Hypertensive urgency Continue home medications of metoprolol succinate, hydralazine, losartan, amlodipine, Imdur Placed on IV labetalol as needed Question of being on metoprolol succinate versus Coreg need to verify Cardio and nephro consulted close monitor End-stage renal disease On dialysis Nephrology consulted Leukocytosis Has cough Empiric Rocephin and Doxy Will follow procalcitonin History of hyperkalemia On Veltassa Potassium 4.6 today History of large pericardial fusion in setting of acute renal failure resolved Atrial flutter in the above setting spontaneously resolved as per records Hyperlipidemia On statin Prediabetes Follow HbA1c levels Chronic anemia Hemoglobin 11.1 DVT prophylaxis Heparin subcu Disposition Telemetry floor Full code History of Present Illness Chief Complaint: Shortness of breath and chest pain Primary Care Provider: Cisco Starkey MD 67-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 Paroxysmal atrial flutter, valvular heart disorder, P ANCA vasculitis as per records, hypertension, aortic ectasia, history of PR, anemia of chronic disease, secondary hyperparathyroidism, hyperlipidemia, history of acute pulm edema, history of recurrent pleural effusion s/p thoracocentesis and recurrent admissions for respiratory failure and pleural effusions comes in because of shortness and chest pain. Patient is on home oxygen at 1 L. Currently requiring 4 L. Feeling short of breath since last 2 to 3 days. Having cough. Denies any fevers. Last 2 days he is having chest pain middle of the chest mild in nature. Constant pain. No radiation. Denies any headache. No earache or runny nose or sore throat. No fevers. Appetite is down since yesterday. No nausea or vomiting. No abdominal pain. Normal bowel movement. Stools are always black because he takes iron pills as per patient. Does not make any urine. Ambulating okay. Lives with his . Medical noncompliance per history. Past medical history. As mentioned above Past surgical history. Colonoscopy, intraperitoneal cath removal, Social history. . No smoking. 1 standard drink of alcohol per week. No drug use. Family history. Mother had lung cancer. Allergies Allergy/AdvReac Type Severity Reaction Status Date / Time No Known Allergies Allergy Verified 08/28/23 02:39 Home Medications Medication Instructions Recorded Confirmed Type cinacalcet 30 mg tablet (Sensipar) 30 mg PO DAILY 08/19/22 08/28/23 History atorvastatin 40 mg tablet 40 mg PO HS #30 tabs 03/28/23 08/28/23 Rx hydralazine 100 mg tablet 100 mg PO TID #90 tabs 03/28/23 08/28/23 Rx losartan 50 mg tablet (Cozaar) 50 mg PO AMHS #30 tabs 03/28/23 08/28/23 Rx ergocalciferol (vitamin D2) 1,250 1,250 mcg PO WK 04/15/23 08/28/23 History mcg (50,000 unit) capsule (Vitamin D2) amlodipine 10 mg tablet 10 mg PO DAILY 06/12/23 08/28/23 History Sodium Chloride Tab 250 mg PO Q OTHER DAY 08/28/23 08/28/23 History allopurinol 100 mg tablet 100 mg PO DAILY 08/28/23 08/28/23 History calcitriol 0.25 mcg capsule 0.25 mcg PO DIRECTED 08/28/23 08/28/23 History carvedilol 12.5 mg tablet 6.25 mg PO BID 08/28/23 08/28/23 History guaifenesin 600 mg tablet, 600 mg PO BID PRN Congestion 08/28/23 08/28/23 History extended release 12 hr (Mucinex) isosorbide dinitrate 20 mg tablet 20 mg PO TID 08/28/23 08/28/23 History metoprolol succinate 50 mg 100 mg PO QAM 08/28/23 08/28/23 History tablet,extended release 24 hr ondansetron HCl 4 mg tablet 4 mg PO Q8H PRN NAUSEA/VOMITING 08/28/23 08/28/23 History patiromer calcium sorbitex 8.4 8.4 g PO QAM 08/28/23 08/28/23 History gram oral powder packet (Veltassa) protein supplement 30 ea PO BID 08/28/23 08/28/23 History vitamin B complex with vit C-folic 1 tab PO DAILY 08/28/23 08/28/23 History acid 800 mcg-zinc 12.5 mg tablet (RenaPlex) Past Med/Surg History Medical History Palliative care encounter Recurrent pleural effusion Chest pain Acute respiratory failure with hypoxia Hypoxia Hypervolemia SOB (shortness of breath) Heart failure with acute decompensation, type unknown Acute hypoxemic respiratory failure Anemia of chronic disease Fluid overload Pleural effusion chronic, recurrent Hyperkalemia Symptomatic anemia Anemia Acute upper gastrointestinal bleeding ESRD (end stage renal disease) on dialysis HD patient follows w/ Dr [facility] 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 AV fistula Kidney transplant candidate reason for colonoscopy to get on list Hypertension Restless leg syndrome Nephrolithiasis Benign prostatic hyperplasia with urinary obstruction Surgical History History of colonoscopy H/O inguinal hernia repair History of cystoscopy Status post creation of arteriovenous fistula left arm History of tooth extraction History of thoracentesis Family History Other No family history of adverse response to anesthesia No significant family history Social History Smoking Status: Never smoker Tobacco Type: Cigarettes Second Hand Exposure: No; Do You Dip or Chew Tobacco: No; Hx Alcohol Use: No Hx Substance Use: No Preferred Language: [place] Communication Ability: Effective Communication Ability Comment: pt using cell phone to translate Communication Tools: IPad Alarm Technician Required: No Beliefs That Will Affect Care: None marital status: Current Living Situation: Alone current occupational status: employed Feels Safe at Home: Yes Assistive Devices: None Review of Systems Review of Systems: All systems reviewed & are unremarkable except as noted in HPI & below Physical Exam Physical Exam: General- Not in distress Head- atraumatic Eyes- PERRL. ENT- oropharynx clear Neck- supple, no JVD. Lungs- clear to auscultation mild bibasilar crackles. no wheezing Heart- regular rhythm; no murmur, no gallop. Abdomen- normal bowel sounds, soft, nontender, no distension. Extremities- mild pretibial edema, no erythema seen. Neuro- alert, oriented ; PERRL no facial palsy; no dysarthria; moves extremities. Skin- warm & dry Results & Data Results & Data Vital Signs (Past 12 Hours) Vital Signs Temp Pulse Pulse Resp BP BP Pulse Ox 08/28/23 04:00 95 H 20 194/99 H 96 08/28/23 02:57 95 08/28/23 02:40 89 26 H 193/105 H 95 08/28/23 02:24 97 H 20 92 08/28/23 01:59 96 H 08/28/23 01:55 97 08/28/23 01:55 08/28/23 01:47 37.0 C 103 H 24 203/123 H 88 L O2 Del Method O2 Flow Rate 08/28/23 04:00 Nasal Cannula 4 08/28/23 02:57 Nasal Cannula 3 08/28/23 02:40 Oxymask 4 08/28/23 02:24 Oxymask 5 08/28/23 01:59 08/28/23 01:55 Oxymask 8 08/28/23 01:55 Oxymask 8 08/28/23 01:47 Nasal Cannula 2 Diagnostic Findings Laboratory Results WBC 15.77 K/ul (4.8-10.8) H 08/28/23 02:21 RBC 3.97 M/uL (4.70-6.10) L 08/28/23 02:21 Hgb 11.1 g/dl (14.0-18.0) L 08/28/23 02:21 Hct 35.5 % (42.0-52.0) L 08/28/23 02:21 MCV 89.4 fL (80.0-100.0) 08/28/23 02:21 MCH 28.0 pg (25.0-34.0) 08/28/23 02:21 MCHC 31.3 g/dL (32.0-36.0) L 08/28/23 02:21 RDW Std Deviation 53.3 fL (36.4-46.3) H 08/28/23 02:21 RDW Coeff of Diamond 16.4 % (11.5-14.5) H 08/28/23 02:21 Plt Count 244 K/uL (130-400) 08/28/23 02:21 MPV 11.1 fL (9.4-12.4) 08/28/23 02:21 Immature Gran % (Auto) 0.4 % 08/28/23 02:21 Neut % (Auto) 85.0 % 08/28/23 02:21 Lymph % (Auto) 4.6 % 08/28/23 02:21 Canadian % (Auto) 6.4 % 08/28/23 02:21 Eos % (Auto) 3.1 % 08/28/23 02:21 Baso % (Auto) 0.5 % 08/28/23 02:21 Neut # (Auto) 13.40 K/uL (1.40-6.50) H 08/28/23 02:21 Lymph # (Auto) 0.72 K/uL (1.20-3.40) L 08/28/23 02:21 Canadian # (Auto) 1.01 K/uL (0.11-0.59) H 08/28/23 02:21 Eos # (Auto) 0.49 K/uL (0.00-0.50) 08/28/23 02:21 Baso # (Auto) 0.08 K/uL (0.00-0.20) 08/28/23 02:21 Immature Gran # (Auto) 0.07 K/uL (0.01-0.20) 08/28/23 02:21 Sodium 140 mmol/L (136-145) 08/28/23 02:21 Potassium 4.6 mmol/L (3.5-5.1) 08/28/23 02:21 Chloride 98 mmol/L (98-107) 08/28/23 02:21 Carbon Dioxide 25 mmol/L (21-32) 08/28/23 02:21 Anion Gap 17 (3-11) H 08/28/23 02:21 BUN 77 mg/dl (6-23) H 08/28/23 02:21 Creatinine 9.91 mg/dl (0.6-1.4) H* 08/28/23 02:21 Est Cr Clr Drug Dosing 6.1 ml/min 08/28/23 02:21 Est GFR ( Amer) 5.6 ml/min 08/28/23 02:21 Est GFR (Non-Af Amer) 4.8 ml/min 08/28/23 02:21 BUN/Creatinine Ratio 7.8 (10-20) L 08/28/23 02:21 Glucose 71 mg/dl (70-99(Fasting)) 08/28/23 02:21 Calcium 10.1 mg/dl (8.6-10.3) 08/28/23 02:21 Total Bilirubin 0.8 mg/dl (0.2-1.0) 08/28/23 02:21 AST 14 U/L (13-39) 08/28/23 02:21 ALT 9 U/L (7-52) 08/28/23 02:21 Alkaline Phosphatase 72 U/L (34-104) 08/28/23 02:21 Troponin I High Sens 302.0 pg/ml (0-20) H* 08/28/23 04:46 Total Protein 6.6 gm/dl (6.0-8.3) 08/28/23 02:21 Albumin 3.9 gm/dl (3.4-5.0) 08/28/23 02:21 Globulin 2.7 gm/dl (2.5-4.0) 08/28/23 02:21 Albumin/Globulin Ratio 1.4 (0.9-2) 08/28/23 02:21 Lipase 15 U/L (11-82) 08/28/23 02:21 Procalcitonin 0.24 ng/ml (0-0.5) 08/28/23 02:17 ECG Additional Comments: ECG. Sinus rhythm with frequent PACs at a rate of 100. ST and T wave abnormality seen Code Status & VTE Plan VTE Prophylaxis Plan VTE Prophylaxis will be ordered: Yes
[2023-08-28] MEDS: DOXYCYCLINE HYCLATE 100 MG in DEXTROSE 5% MINI-B 100 ML IV SCH (05:53)
[2023-08-28] MEDS: HEPARIN SOD 5,000 UNIT/0.5 ML VIAL SQ SCH (05:55)
[2023-08-28 07:12] LABS: Basophils # (auto) 0.05 K/uL (0.00-0.20); Basophils % (auto) 0.3 %; Eosinophils # (auto) 0.22 K/uL (0.00-0.50); Eosinophils % (auto) 1.5 %; Hematocrit (blood only) 31.2 % (42.0-52.0); Immature Granulocytes # (auto) 0.07 K/uL (0.01-0.20); Immature Granulocytes % (auto) 0.5 %; Lymphocytes # (auto) 0.76 K/uL (1.20-3.40); Lymphocytes % (auto) 5.1 %; Mean Corpuscular Hgb Conc 32.1 g/dL (32.0-36.0); Mean Corpuscular Volume 87.4 fL (80.0-100.0); Mean Platelet Volume 10.4 fL (9.4-12.4); Monocytes # (auto) 1.04 K/uL (0.11-0.59); Neutrophils # (auto) 12.79 K/uL (1.40-6.50); Neutrophils % (auto) 85.6 %; Platelet Count 221 K/uL (130-400); RDW Coefficient of Variation 16.4 % (11.5-14.5); RDW Standard Deviation 52.6 fL (36.4-46.3); Red Blood Count 3.57 M/uL (4.70-6.10); White Blood Count 14.93 K/ul (4.8-10.8)
[2023-08-28 07:35] LABS: BUN Creatinine Ratio 7.8 (10-20); Calcium 9.7 mg/dl (8.6-10.3); Creatinine Clr Calc Pharmacy 6.3 ml/min; Est GFR (African American) 5.4 ml/min; Est GFR (Non-African American) 4.7 ml/min; Magnesium 2.1 mg/dl (1.7-2.4); Potassium 4.7 mmol/L (3.5-5.1); Troponin I High Sensitivity 393.1 pg/ml (0-20)
--- NOTE | 2023-08-28 07:50 | XRay Report ---
XR chest 1V portable HISTORY: 67 years-old Male Chest pain, nonspecific acute chest pain COMPARISON: 08/22/2023 TECHNIQUE: AP view of the chest FINDINGS: Cardiac silhouette is enlarged. Atherosclerosis of aorta. There is a line projects over the right tony g apex suggestive of a small pneumothorax with pleural separation of 11 mm. Cardiac silhouette is enl arged. Pulmonary vascular congestion with interstitial coarsening. Moderate sized pleural effusions, left greater than right with perihilar and bibasilar consolidation. Findings appear to be stable from prior. Bones appear grossly intact. IMPRESSION: 1. Possible small right apical pneumothorax. Confirmation can be made with follow-up inspiration and expiration views. This was made as a call report at time of dictation. 2. Cardiomegaly with pulmonary edema. 3. Moderate pleural effusions with persistent bibasilar consolidation. ACT 112: Negative or not required by law. The above report was generated using voice recognition software. It may contain grammatical, syntax o r spelling errors. Electronically signed by: Chip Henderson M.D. 08/28/2023 7:47 AM
[2023-08-28] MEDS ORDERED: NON-FORMULARY MEDICATION (Protein Supplement Liquid) PO SCH (09:00)
--- NOTE | 2023-08-28 09:32 | Cardiology Consultation ---
Date of Consultation August 28, 2023 Assessment & Plan (1) Acute hypoxemic respiratory failure: (2) Recurrent pleural effusion: (3) Acute heart failure with reduced ejection fraction and diastolic dysfunction: (4) Hypertensive heart disease: (5) ESRD on hemodialysis: Plan Medically complex 67 year old male with recurrent acute respiratory failure with b/l pleural effusions complicated by ESRD on HD, hypertensive heart disease with mildly reduced LVEF at 45% and stable from prior findings. Patient underwent repeat left sided thoracentesis on the left this morning by IR. Consider right sided thoracentesis? Patient to have dialysis today for additional volume removal. Patient is Anuric and would not benefit from diuretic therapy. He is hypertensive on arrival and remains hypertensive this morning but patient just received AM meds. Questionable compliance with meds at home per documentation. Continue amlodipine 10 mg, hydralazine 100 mg TID, isosorbide 20 TID, losartan 50 mg BID, metoprolol 100 mg daily Per outpatient med list he takes metoprolol and carvedilol? He is mildly tachycardic with frequent PVC's on telemetry. Await dialysis. If BP remains hypertensive, increase metoprolol to 100 mg BID Echo reviewed from this morning with mildly reduced LVEF at 45-50%, mild - stable findings from prior echo. Elevated troponin which is chronic finding. Not indicative of ACS. Case discussed with Dr. Bunch I spent a total of 60 minutes on the date of service in preparation, delivery, and documentation of the care provided to this patient, excluding any time spent in the performance of separately billed services. Ana Amaral PA-C Department of Cardiology, [facility] This chart was completed in part utilizing Speech Voice Recognition Software. Grammatical errors, random word insertions, pronoun errors, and incomplete sentences are an occasional consequence of this system due to software limitations, ambient noise, and hardware issues. Any formal questions or concerns about the content, text, or information contained within the body of this dictation should be directly addressed to the provider for clarification. Supervising Physician Co-Signing Physician Notes I have reviewed the advance practitioner's documentation, and I agree with, and take responsibility for the plan of care. 67-year-old Kosovan-speaking patient presented to the emergency department with progressive shortness of breath. Underwent left-sided thoracentesis this a.m. 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 Denies chest pain or heaviness. Scheduled for hemodialysis later this afternoon. PE: Hypertensive: General: NAD, awake alert and oriented x 3. Heart: Regular rhythm, normal S1-S2. 2/6 systolic ejection murmur. Lungs: Diminished breath sounds at the bases bilateral, positive rales at the bases bilaterally. Extremities: No edema. A/P: 67-year-old male admitted with acute decompensated heart failure, recurrent bilateral pleural effusions in the setting of end-stage renal disease. Left- sided thoracentesis performed this a.m. without complication. Scheduled for hemodialysis this afternoon. Outpatient record reporting both carvedilol and metoprolol. Borderline tachycardic this a.m. however, heart rate improved after receiving Toprol-XL 100 mg. Will consider transition to carvedilol 25 mg twice daily in a.m. pending review of blood pressure and heart rate. Continue amlodipine, hydralazine, losartan, and Isordil as ordered. Repeat echocardiogram demonstrates stable findings. I spent a total of 30 minutes on the date of service in preparation, delivery, and documentation of the care provided to this patient, excluding any time spent in the performance of separately billed services. History of Present Illness Reason for Consultation: Hypertensive heart disease Requesting Physician: Dr. Lee Attending Physician: Dr. Bunch History of Present Illness Patient is a 67 year old male who is known to [facility] Cardiology through past admissions. Patient is Kosovan Speaking. He prefers to use Google Translate on his phone rather than formal fiberglass boat finisher. He does speak and understand some Estonian. History is complex and includes: 1. End-stage renal disease on hemodialysis 3 days per week. 2. Large pericardial effusion in the setting of acute renal failure, resolved per most recent echo 3. History of Atrial flutter in the above setting spontaneously resolved 4. Reportedly p-ANCA positive 5. Hypertension with severe LVH 6. Medical non compliance 7. Recurrent admissions for respiratory failure with large B/L pleural effusions, requiring repeated thoracentesis. Patient has been hospitalized about 1 time per month over the last 6 months for recurrent acute respiratory failure with hypoxia requiring thoracentesis. Patient was evaluated on one admission by Cardiology for HTN. Hydralazine increased and isosorbide initiated with improvement in his BP readings. Echo during that time revealed severe LVH with global hypokinesis, EF 45-50%. As an outpatient patient has frequent thoracentesis to manage fluid status, along with HD 3 days per week. Per review of chart, patient had thoracentesis on 07/11/23, 08/01/23, 08/22/23. Over the last 2-3 days patient reported worsening SOB and intermittent pleuritic chest pain, leading to ER visit. On arrival, EKG similar to past tracings demonstrating NSR with T wave abnormality in lateral leads. Troponin elevated around 308-393 but flat and this is chronically elevated per past admissions. possible small pneumothorax mentioned on chest xray on admission? B/L pleural effusions noted, larger than prior evaluation. Patient reports compliance with meds. At time of consult this morning, patient reports ongoing SOB with minimal activity and orthopnea. He does not make urine. BP remains uncontrolled. Nurse just gave morning meds. He denies chest pain this morning. No headaches or vision changes. No palpitations. No edema. Patient had repeat thoracentesis this morning by radiology. repeat chest xray was without pneumothorax and left sided pleural effusion improved. He is having HD later today. Allergies Allergy/AdvReac Type Severity Reaction Status Date / Time No Known Allergies Allergy Verified 08/28/23 02:39 Home Medications Medication Instructions Recorded Confirmed Type cinacalcet 30 mg tablet (Sensipar) 30 mg PO DAILY 08/19/22 08/28/23 History atorvastatin 40 mg tablet 40 mg PO HS #30 tabs 03/28/23 08/28/23 Rx hydralazine 100 mg tablet 100 mg PO TID #90 tabs 03/28/23 08/28/23 Rx losartan 50 mg tablet (Cozaar) 50 mg PO AMHS #30 tabs 03/28/23 08/28/23 Rx ergocalciferol (vitamin D2) 1,250 1,250 mcg PO WK 04/15/23 08/28/23 History mcg (50,000 unit) capsule (Vitamin D2) amlodipine 10 mg tablet 10 mg PO DAILY 06/12/23 08/28/23 History Sodium Chloride Tab 250 mg PO Q OTHER DAY 08/28/23 08/28/23 History allopurinol 100 mg tablet 100 mg PO DAILY 08/28/23 08/28/23 History calcitriol 0.25 mcg capsule 0.25 mcg PO DIRECTED 08/28/23 08/28/23 History carvedilol 12.5 mg tablet 6.25 mg PO BID 08/28/23 08/28/23 History guaifenesin 600 mg tablet, 600 mg PO BID PRN Congestion 08/28/23 08/28/23 History extended release 12 hr (Mucinex) isosorbide dinitrate 20 mg tablet 20 mg PO TID 08/28/23 08/28/23 History metoprolol succinate 50 mg 100 mg PO QAM 08/28/23 08/28/23 History tablet,extended release 24 hr ondansetron HCl 4 mg tablet 4 mg PO Q8H PRN NAUSEA/VOMITING 08/28/23 08/28/23 History patiromer calcium sorbitex 8.4 8.4 g PO QAM 08/28/23 08/28/23 History gram oral powder packet (Veltassa) protein supplement 30 ea PO BID 08/28/23 08/28/23 History vitamin B complex with vit C-folic 1 tab PO DAILY 08/28/23 08/28/23 History acid 800 mcg-zinc 12.5 mg tablet (RenaPlex) Patient History Medical History Palliative care encounter Recurrent pleural effusion Chest pain Acute respiratory failure with hypoxia Hypoxia Hypervolemia SOB (shortness of breath) Heart failure with acute decompensation, type unknown Acute hypoxemic respiratory failure Anemia of chronic disease Fluid overload Pleural effusion chronic, recurrent Hyperkalemia Symptomatic anemia Anemia Acute upper gastrointestinal bleeding ESRD (end stage renal disease) on dialysis HD patient follows w/ Dr Munson [facility] 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 AV fistula Kidney transplant candidate reason for colonoscopy to get on list Hypertension Restless leg syndrome Nephrolithiasis Benign prostatic hyperplasia with urinary obstruction Surgical History History of colonoscopy H/O inguinal hernia repair History of cystoscopy Status post creation of arteriovenous fistula left arm History of tooth extraction History of thoracentesis Family History Other No family history of adverse response to anesthesia No significant family history Social History Smoking Status: Former smoker Tobacco Type: Cigarettes Second Hand Exposure: No; Do You Dip or Chew Tobacco: No; Hx Alcohol Use: No Hx Substance Use: No Preferred Language: Kosovan Communication Ability: Effective Communication Ability Comment: pt using cell phone to translate Communication Tools: IPad Necktie Turner Required: No Beliefs That Will Affect Care: None marital status: Current Living Situation: Family current occupational status: employed Feels Safe at Home: Yes Safety Concerns: Feels Safe At This Time Assistive Devices: Glasses Review of Systems Review of Systems: All systems reviewed & are unremarkable except as noted in HPI & below Physical Exam Constitutional: WD/WN, vitals as above average body habitus; no acute distress Neck: normal visual inspection Respiratory: + labored breathing Auscultation: + d iminished lung sounds and + crackles Cardiovascular: Rate/Rhythm: regular rate and regular rhythm Heart Sounds: + murmur (II/ systolic murmur LSB) Extremities: no edema Gastrointestinal (Abdomen): normal bowel sounds, soft, nontender, no hepatosplenomegaly Musculoskeletal: no cyanosis or clubbing, extremities motor strength 5/5 Neurologic: PERRL, EOMI, accommodation nl, no face palsy, no dysarthria Results & Data Vital Signs (Past 12 Hours) Vital Signs Temp Pulse Pulse Resp BP BP Pulse Ox 08/28/23 09:04 08/28/23 07:52 75 08/28/23 06:28 88 190/89 H 08/28/23 05:09 78 20 97 08/28/23 04:54 95 H 183/120 H 08/28/23 04:00 95 H 20 194/99 H 96 08/28/23 02:57 95 08/28/23 02:40 89 26 H 193/105 H 95 08/28/23 02:24 97 H 20 92 08/28/23 01:59 96 H 08/28/23 01:55 97 08/28/23 01:55 08/28/23 01:47 37.0 C 103 H 24 203/123 H 88 L O2 Del Method O2 Flow Rate 08/28/23 09:04 Nasal Cannula 5 08/28/23 07:52 08/28/23 06:28 08/28/23 05:09 Nasal Cannula 4 08/28/23 04:54 08/28/23 04:00 Nasal Cannula 4 08/28/23 02:57 Nasal Cannula 3 08/28/23 02:40 Oxymask 4 08/28/23 02:24 Oxymask 5 08/28/23 01:59 08/28/23 01:55 Oxymask 8 08/28/23 01:55 Oxymask 8 08/28/23 01:47 Nasal Cannula 2 Laboratory Results Cardiac Enzymes 08/28/23 08/28/23 08/28/23 Range/Units 02:21 04:46 06:44 AST 14 (13-39) U/L Troponin I High Sens 308.0 H* 302.0 H* 393.1 H* D (0-20) pg/ml CBC 08/28/23 08/28/23 Range/Units 02:21 06:44 WBC 15.77 H 14.93 H (4.8-10.8) K/ul RBC 3.97 L 3.57 L (4.70-6.10) M/uL Hgb 11.1 L 10.0 L (14.0-18.0) g/dl Hct 35.5 L 31.2 L (42.0-52.0) % Plt Count 244 221 (130-400) K/uL Neut # (Auto) 13.40 H 12.79 H (1.40-6.50) K/uL Lymph # (Auto) 0.72 L 0.76 L (1.20-3.40) K/uL [place] # (Auto) 1.01 H 1.04 H (0.11-0.59) K/uL Eos # (Auto) 0.49 0.22 (0.00-0.50) K/uL Baso # (Auto) 0.08 0.05 (0.00-0.20) K/uL Comprehensive Metabolic Panel 08/28/23 08/28/23 Range/Units 02:21 06:44 Sodium 140 140 (136-145) mmol/L Potassium 4.6 4.7 (3.5-5.1) mmol/L Chloride 98 98 (98-107) mmol/L Carbon Dioxide 25 26 (21-32) mmol/L BUN 77 H 79 H (6-23) mg/dl Creatinine 9.91 H* 10.16 H* (0.6-1.4) mg/dl Glucose 71 91 (70-99(Fasting)) mg/dl Calcium 10.1 9.7 (8.6-10.3) mg/dl AST 14 (13-39) U/L ALT 9 (7-52) U/L Alkaline Phosphatase 72 (34-104) U/L Total Protein 6.6 (6.0-8.3) gm/dl Albumin 3.9 (3.4-5.0) gm/dl Intake and Output 08/27/23 08/28/23 08/28/23 22:59 06:59 14:59 Intake Total 80.000 / 80.000 100 / 100 Balance 80.000 / 80.000 100 / 100 Intake: IV 50.000 / 50.000 100 / 100 Doxycycline Hyclate 100 mg In 100 / 100 Dextrose 5% Mini-B 100 ml @ 50 mls/hr IV Q12H [facility] Rx#:[id number] cefTRIAXone SODIUM 2,000 mg In 50.000 / 50.000 Dextrose 5 % Mini-B 50 ml @ 100 mls/hr IV Q24H [facility] Rx#: [id number] Oral 30 / 30 Other: Weight 68 kg 68 kg Weight Measurement Method Built in [facility] Patient Weight 08/29/23 06:59 Weight 68 kg Diagnostic Findings EKG reviewed from admission, 08/28: Sinus rhythm with PAC's ST depression in lateral leads no significant change from previous Echo reviewed from today, 08/28/23: No change from prior study. LV systolic function is mildly reduced EF 45-50% LA is moderately dilated Aortic valve is moderately calcified Mild Mild MR Mild TR estimated pulm pressure 45 mmHg repeat chest xray this morning, pre thoracentesis: IMPRESSION: 1. The previously questioned small right apical pneumothorax is not visualized and was likely artifactual. 2. Cardiomegaly with pulmonary edema. 3. Moderate pleural effusions with bibasilar consolidation again noted. Chest xray report reviewed from admission: IMPRESSION: 1. Possible small right apical pneumothorax. Confirmation can be made with follow-up inspiration and expiration views. This was made as a call report at time of dictation. 2. Cardiomegaly with pulmonary edema. 3. Moderate pleural effusions with persistent bibasilar consolidation. Medications Administered Current Inpatient Medications Acetaminophen (Acetaminophen 325 Mg Tab) 650 mg PO Q4H PRN PRN Reason: Pain or Fever Stop: 09/27/23 04:32 Allopurinol (Allopurinol 100 Mg Tab) 100 mg PO DAILY [facility] Stop: 09/27/23 08:59 Amlodipine Besylate (Amlodipine Besylate 5 Mg Tab) 10 mg PO DAILY [facility] Stop: 09/27/23 08:59 Atorvastatin Calcium (Atorvastatin 40 Mg Tab) 40 mg PO HS [facility] Stop: 09/27/23 20:59 Cinacalcet (Cinacalcet Hcl 30 Mg Tab) 30 mg PO DAILY [facility] Stop: 09/27/23 08:59 Ergocalciferol (Ergocalciferol 1250 Mcg (50,000 Units) Cap) 1,250 mcg PO Chery@0900 [facility] Stop: 10/03/23 08:59 Guaifenesin (Guaifenesin 600 Mg Tabcr) 600 mg PO BID PRN PRN Reason: Congestion Stop: 09/27/23 04:32 Heparin Sodium (Porcine) (Heparin Sod 5,000 Unit/0.5 Ml Vial) 5,000 units SQ Q8 [facility] Stop: 09/27/23 05:59 Last Admin: 08/28/23 05:55 Dose: 5,000 units Hydralazine HCl (Hydralazine Tab 50 Mg Tab) 100 mg PO TID [facility] Stop: 09/27/23 08:59 Ceftriaxone Sodium 2,000 mg/ (Dextrose) 50 mls @ 100 mls/hr IV Q24H [facility]; Protocol Stop: 09/04/23 04:59 Last Infusion: 08/28/23 05:56 Dose: Infused Doxycycline Hyclate 100 mg/ (Dextrose) 100 mls @ 50 mls/hr IV Q12H [facility] Stop: 09/04/23 04:59 Last Infusion: 08/28/23 08:28 Dose: Infused Isosorbide Dinitrate (Isosorbide Dinitrate 20 Mg Tab) 20 mg PO TID@0700,1200,1700 [facility] Stop: 09/27/23 06:59 Labetalol HCl (Labetalol Hcl Iv 5 Mg/Ml 20ml) 10 mg IV Q4H PRN PRN Reason: Hypertension Stop: 09/27/23 04:22 Last Admin: 08/28/23 04:54 Dose: 10 mg Losartan Potassium (Losartan Potassium 50 Mg Tab) 50 mg PO AMHS [facility] Stop: 09/27/23 08:59 Metoprolol Succinate (Metoprolol Succ 50mg Ext Rel Tab) 100 mg PO QAM [facility] Stop: 09/27/23 08:59 Nitroglycerin (Nitroglycerin Sl 0.4 Mg/Tab Tab) 0.4 mg SL Q5M PRN PRN Reason: Chest Pain Stop: 09/27/23 04:32 Patiromer (Patiromer Calcium Sorbitex 8.4 Gm Pack) 8.4 gm PO QAM [facility] Stop: 09/27/23 08:59 Polyethylene Glycol (Polyethylene (Miralax) 17 Gm Pack) 17 gm PO DAILY PRN PRN Reason: Constipation Stop: 09/27/23 04:32 Vitamin B Complex/Folic Acid (Nephrocaps) 1 cap PO DAILY [facility] Stop: 09/27/23 08:59 (4) Hypertensive heart disease Heart failure chronicity: acute on chronic Heart failure presence: with heart failure Heart failure type: systolic Qualified Code(s): I11.0 - Hypertensive heart disease with heart failure; I50.23 - Acute on chronic systolic (congestive) heart failure
[2023-08-28] MEDS: hydrALAZINE TAB 50 MG TAB PO SCH (09:39)
[2023-08-28] MEDS: allopurinoL 100 MG TAB PO SCH (09:40)
[2023-08-28] MEDS: amLODIPine BESYLATE 5 MG TAB PO SCH (09:40)
[2023-08-28] MEDS: LOSARTAN POTASSIUM 50 MG TAB PO SCH (09:40)
[2023-08-28] MEDS: CINACALCET HCL 30 MG TAB PO SCH (09:40)
[2023-08-28] MEDS: ISOSORBIDE DINITRATE 20 MG TAB PO SCH (09:41)
[2023-08-28] MEDS: METOPROLOL SUCC 50MG EXT REL TAB PO SCH (09:41)
[2023-08-28] MEDS: NEPHROCAPS PO SCH (09:41)
--- NOTE | 2023-08-28 10:44 | XRay Report ---
XR chest 1V portable HISTORY: 67 years-old Male follow up possible right apical ptx COMPARISON: 08/28/2023 TECHNIQUE: AP view of the chest FINDINGS: Cardiac silhouette is enlarged. Atherosclerosis of aorta. There previously questioned small right api gilma pneumothorax not visualized. Cardiac silhouette is enlarged. Pulmonary vascular congestion with i nterstitial coarsening. Moderate sized pleural effusions, left greater than right with perihilar and bibasilar consolidation. Findings appear to be stable from prior. Bones appear grossly intact. IMPRESSION: 1. The previously questioned small right apical pneumothorax is not visualized and was likely artifac tual. 2. Cardiomegaly with pulmonary edema. 3. Moderate pleural effusions with bibasilar consolidation again noted. ACT 112: Negative or not required by law. The above report was generated using voice recognition software. It may contain grammatical, syntax o r spelling errors. Electronically signed by: Chip Henderson M.D. 08/28/2023 10:43 AM
--- NOTE | 2023-08-28 11:30 | Pulmonary Consultation ---
Date of Consultation August 28, 2023 Assessment & Plan (1) Acute hypoxemic respiratory failure: (2) Recurrent pleural effusion: Plan Hypoxia secondary to volume overload and bilateral effusions. His left pleural effusion appears to be progressively loculated. His respiratory status did respond favorably to left thoracentesis and his x-ray appears to be improved. He will likely need thoracic surgery intervention to reopen the space if he continues to have loculations and paroxysmal bouts of dyspnea. No further input from pulmonary at this time. Please call with questions. Thank you for the consult. Will sign off. History of Present Illness Reason for Consultation: Pleural effusions Attending Physician: Nathan Lee MD History of Present Illness 67-year-old male with a history of ESRD on hemodialysis every Monday, Monday and Monday, atrial flutter, hypertension, severe LVH and cardiomyopathy who presented to the hospital with increasing shortness of breath. Underwent a chest x-ray last night with evidence of bilateral effusions, left greater than right. There was concern for possible apical pneumothorax on the right. I ordered a repeat chest x-ray which revealed that the visual pneumothorax on previous x-ray was likely an artifact. Patient was hypertensive. His last thoracentesis was on 08/22/2023 prior to today on his left side via radiology. At approximately 700 mL of serosanguineous fluid removed from the left hemithorax which is consistent with his prior procedures according to the procedurist, Juan David Oakes. I did speak with Juan David over the phone regarding his case. The patient notes significant improvement in his dyspnea. He notes that last night he had trouble falling asleep due to severe shortness of breath. Allergies Allergy/AdvReac Type Severity Reaction Status Date / Time No Known Allergies Allergy Verified 08/28/23 02:39 Home Medications Medication Instructions Recorded Confirmed Type cinacalcet 30 mg tablet (Sensipar) 30 mg PO DAILY 08/19/22 08/28/23 History atorvastatin 40 mg tablet 40 mg PO HS #30 tabs 03/28/23 08/28/23 Rx hydralazine 100 mg tablet 100 mg PO TID #90 tabs 03/28/23 08/28/23 Rx losartan 50 mg tablet (Cozaar) 50 mg PO AMHS #30 tabs 03/28/23 08/28/23 Rx ergocalciferol (vitamin D2) 1,250 1,250 mcg PO WK 04/15/23 08/28/23 History mcg (50,000 unit) capsule (Vitamin D2) amlodipine 10 mg tablet 10 mg PO DAILY 06/12/23 08/28/23 History Sodium Chloride Tab 250 mg PO Q OTHER DAY 08/28/23 08/28/23 History allopurinol 100 mg tablet 100 mg PO DAILY 08/28/23 08/28/23 History calcitriol 0.25 mcg capsule 0.25 mcg PO DIRECTED 08/28/23 08/28/23 History carvedilol 12.5 mg tablet 6.25 mg PO BID 08/28/23 08/28/23 History guaifenesin 600 mg tablet, 600 mg PO BID PRN Congestion 08/28/23 08/28/23 History extended release 12 hr (Mucinex) isosorbide dinitrate 20 mg tablet 20 mg PO TID 08/28/23 08/28/23 History metoprolol succinate 50 mg 100 mg PO QAM 08/28/23 08/28/23 History tablet,extended release 24 hr ondansetron HCl 4 mg tablet 4 mg PO Q8H PRN NAUSEA/VOMITING 08/28/23 08/28/23 History patiromer calcium sorbitex 8.4 8.4 g PO QAM 08/28/23 08/28/23 History gram oral powder packet (Veltassa) protein supplement 30 ea PO BID 08/28/23 08/28/23 History vitamin B complex with vit C-folic 1 tab PO DAILY 08/28/23 08/28/23 History acid 800 mcg-zinc 12.5 mg tablet (RenaPlex) Patient History Medical History Palliative care encounter Recurrent pleural effusion Chest pain Acute respiratory failure with hypoxia Hypoxia Hypervolemia SOB (shortness of breath) Heart failure with acute decompensation, type unknown Acute hypoxemic respiratory failure Anemia of chronic disease Fluid overload Pleural effusion chronic, recurrent Hyperkalemia Symptomatic anemia Anemia Acute upper gastrointestinal bleeding ESRD (end stage renal disease) on dialysis HD patient follows w/ Dr Munson [facility] 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 AV fistula Kidney transplant candidate reason for colonoscopy to get on list Hypertension Restless leg syndrome Nephrolithiasis Benign prostatic hyperplasia with urinary obstruction Surgical History History of colonoscopy H/O inguinal hernia repair History of cystoscopy Status post creation of arteriovenous fistula left arm History of tooth extraction History of thoracentesis Family History Other No family history of adverse response to anesthesia No significant family history Social History Smoking Status: Former smoker Tobacco Type: Cigarettes Second Hand Exposure: No; Do You Dip or Chew Tobacco: No; Hx Alcohol Use: No Hx Substance Use: No Preferred Language: Syrian Communication Ability: Effective Communication Ability Comment: pt using cell phone to translate Communication Tools: IPad Labor Standards Director Required: No Beliefs That Will Affect Care: None marital status: Current Living Situation: Family current occupational status: employed Feels Safe at Home: Yes Safety Concerns: Feels Safe At This Time Assistive Devices: Glasses Review of Systems Review of Systems: All systems reviewed & are unremarkable except as noted in HPI & below Physical Exam Physical Exam: VITAL SIGNS - Vital signs and nursing notes were reviewed. GENERAL - 67-year-old male appearing his stated age who is in no acute distress. Communicates well with provider and answers questions appropriately. SKIN - Without rashes or lesions. NOSE - Midline and without cyanosis. MOUTH/OROPHARYNX - Without perioral cyanosis. NECK - Neck with FROM. LUNGS - Chest wall evaluation demonstrates a normal chest wall A:P diameter. Auscultation reveals diminished breath sounds at the bases with slight crackles. CARDIAC - RRR with S1/S2. No murmur, rubs, or gallops appreciated. ABDOMEN - Abdominal inspection demonstrates flat. BS normoactive all four quadrants. No tenderness, palpable masses, or ascites noted. EXTREMITIES - Nail clubbing not present. No peripheral cyanosis. No pretibial edema present. LUE fistula in place. +3/5 radial palpated throughout. PSYCH - A&Ox3 and cooperates fully with examiner. Pt is very pleasant and interacts well with examiner. Results & Data Results & Data Vital Signs (Past 12 Hours) Vital Signs Temp Pulse Pulse Resp BP BP Pulse Ox 08/28/23 09:04 08/28/23 07:52 75 08/28/23 06:28 88 190/89 H 08/28/23 05:09 78 20 97 08/28/23 04:54 95 H 183/120 H 08/28/23 04:00 95 H 20 194/99 H 96 08/28/23 02:57 95 08/28/23 02:40 89 26 H 193/105 H 95 08/28/23 02:24 97 H 20 92 08/28/23 01:59 96 H 08/28/23 01:55 97 08/28/23 01:55 08/28/23 01:47 37.0 C 103 H 24 203/123 H 88 L O2 Del Method O2 Flow Rate 08/28/23 09:04 Nasal Cannula 5 08/28/23 07:52 08/28/23 06:28 08/28/23 05:09 Nasal Cannula 4 08/28/23 04:54 08/28/23 04:00 Nasal Cannula 4 08/28/23 02:57 Nasal Cannula 3 08/28/23 02:40 Oxymask 4 08/28/23 02:24 Oxymask 5 08/28/23 01:59 08/28/23 01:55 Oxymask 8 08/28/23 01:55 Oxymask 8 08/28/23 01:47 Nasal Cannula 2 PG Care Time/CCT Total # of Minutes Spent Total Time Spent with Patient: Total time spent is greater than 50% in coordination of care (as documented) at patient's floor/unit and/or counseling patient: Coding Level of Care Code 49161 INT INP/OBS CARE 2/55MIN Diagnoses Acute hypoxemic respiratory failure J96.01 Recurrent pleural effusion J90
--- NOTE | 2023-08-28 11:41 | XRay Report ---
XR chest 1V not portable CLINICAL HISTORY: s/p left thoracentesis COMPARISON STUDY: Chest radiograph August 28, 2023 at 9:50 AM. FINDINGS: There is no pneumothorax following left thoracentesis. The left pleural effusion has signif icantly decreased in size. Residual left pleural effusion is noted. There is a moderate right pleural effusion. There are bibasilar opacities. 4 cm round left midlung density was shown on prior CT of [facility]20[facility]. This favors round atelectasis. Pulmonary edema persists. Cardiomediastinal silhouett e is stable. IMPRESSION: 1. No pneumothorax following left thoracentesis. Significant decrease in size of the left pleural eff usion. 2. Persistent pulmonary edema and pleural effusions, as above. 3. 4 cm left midlung density likely reflecting round atelectasis. However this should be assessed on follow-up exams to ensure stability/resolution. ACT 112: Negative or not required by law. Electronically signed by: Sivakumar Renee M.D. 08/28/2023 11:40 AM
--- NOTE | 2023-08-28 11:49 | Nephrology Consultation ---
Date of Consultation August 28, 2023 Assessment & Plan (1) Acute hypoxemic respiratory failure: From b/l Pl eff and S/p tap just today and needs Frequently last done a week ago 08/22. being followed by Pulmonary. Will try to remove what we are allowed. dialysis for 3.5 hrs and take 2.5 kilo off. Does not have any edema though. (2) ESRD (end stage renal disease) on dialysis: today is his dialysis day. Will do As discussed above--3.5 hrs through his AVF 2k bath and take 2.5 kilo off. BP will be lower hopefully after dialysis. Amlo and Hydralazine seems maximal. Can raise the losartan dose. (3) Pleural effusion: History of Present Illness Reason for Consultation: ESRD on dialysis Attending Physician: Nathan Lee MD History of Present Illness 67/M with end-stage renal disease on hemodialysis--MWF at [facility], chronic systolic CHF with EF 45 to 50%. Paroxysmal atrial flutter, valvular heart d isorder, P ANCA vasculitis as per records, hypertension, aortic ectasia, history of [place], anemia of chronic disease, secondary hyperparathyroidism, hyperlipidemia, history of acute pulm edema, history of recurrent pleural effusion s/p thoracocentesis and recurrent admissions for respiratory failure and pleural effusions comes in because of shortness and chest pain. Patient is on home oxygen at 1 L. Currently requiring 5 L. He had Pleural tap just now and now back to his room. He feels less SOB now. last Dialysis was Monday. He was Feeling short of breath since last 2 to 3 days. Having cough. Denies any fevers. Was also having chest pain last few days. Denies any headache. No fevers. Appetite is down since yesterday. No nausea or vomiting. No abdominal pain. Normal bowel movement. Does not make any urine. Ambulating okay. Lives with his . Medical noncompliance per history. He is [place] Speaking and Daughter makes a lot of decisions ROS--See HPI. otherwise 12 Systems reviewed and negative ExaM: Awake and alert x 3. NO resp Distress now. Normal Speech. On 5 liters o2 now. Chest --b/l Decreased BS at bases and occ [employer] CVS--RRR. Soft Sys murmur. No edema. Abd--Soft Non tender. Ext--No edema. Neuro--Awake and alert. normal Speech. Allergies Allergy/AdvReac Type Severity Reaction Status Date / Time No Known Allergies Allergy Verified 08/28/23 02:39 Home Medications Medication Instructions Recorded Confirmed Type cinacalcet 30 mg tablet (Sensipar) 30 mg PO DAILY 08/19/22 08/28/23 History atorvastatin 40 mg tablet 40 mg PO HS #30 tabs 03/28/23 08/28/23 Rx hydralazine 100 mg tablet 100 mg PO TID #90 tabs 03/28/23 08/28/23 Rx losartan 50 mg tablet (Cozaar) 50 mg PO AMHS #30 tabs 03/28/23 08/28/23 Rx ergocalciferol (vitamin D2) 1,250 1,250 mcg PO WK 04/15/23 08/28/23 History mcg (50,000 unit) capsule (Vitamin D2) amlodipine 10 mg tablet 10 mg PO DAILY 06/12/23 08/28/23 History Sodium Chloride Tab 250 mg PO Q OTHER DAY 08/28/23 08/28/23 History allopurinol 100 mg tablet 100 mg PO DAILY 08/28/23 08/28/23 History calcitriol 0.25 mcg capsule 0.25 mcg PO DIRECTED 08/28/23 08/28/23 History carvedilol 12.5 mg tablet 6.25 mg PO BID 08/28/23 08/28/23 History guaifenesin 600 mg tablet, 600 mg PO BID PRN Congestion 08/28/23 08/28/23 History extended release 12 hr (Mucinex) isosorbide dinitrate 20 mg tablet 20 mg PO TID 08/28/23 08/28/23 History metoprolol succinate 50 mg 100 mg PO QAM 08/28/23 08/28/23 History tablet,extended release 24 hr ondansetron HCl 4 mg tablet 4 mg PO Q8H PRN NAUSEA/VOMITING 08/28/23 08/28/23 History patiromer calcium sorbitex 8.4 8.4 g PO QAM 08/28/23 08/28/23 History gram oral powder packet (Veltassa) protein supplement 30 ea PO BID 08/28/23 08/28/23 History vitamin B complex with vit C-folic 1 tab PO DAILY 08/28/23 08/28/23 History acid 800 mcg-zinc 12.5 mg tablet (RenaPlex) Patient History Medical History Palliative care encounter Recurrent pleural effusion Chest pain Acute respiratory failure with hypoxia Hypoxia Hypervolemia SOB (shortness of breath) Heart failure with acute decompensation, type unknown Acute hypoxemic respiratory failure Anemia of chronic disease Fluid overload Pleural effusion chronic, recurrent Hyperkalemia Symptomatic anemia Anemia Acute upper gastrointestinal bleeding ESRD (end stage renal disease) on dialysis HD patient follows w/ Dr Munson [facility] 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 AV fistula Kidney transplant candidate reason for colonoscopy to get on list Hypertension Restless leg syndrome Nephrolithiasis Benign prostatic hyperplasia with urinary obstruction Surgical History History of colonoscopy H/O inguinal hernia repair History of cystoscopy Status post creation of arteriovenous fistula left arm History of tooth extraction History of thoracentesis Family History Other No family history of adverse response to anesthesia No significant family history Social History Smoking Status: Former smoker Tobacco Type: Cigarettes Second Hand Exposure: No; Do You Dip or Chew Tobacco: No; Hx Alcohol Use: No Hx Substance Use: No Preferred Language: [place] Communication Ability: Effective Communication Ability Comment: pt using cell phone to translate Communication Tools: IPad Firer Watertender Required: No Beliefs That Will Affect Care: None marital status: Current Living Situation: Family current occupational status: employed Feels Safe at Home: Yes Safety Concerns: Feels Safe At This Time Assistive Devices: Glasses Results & Data Vital Signs (Past 12 Hours) Vital Signs Temp Pulse Pulse Resp BP BP Pulse Ox 08/28/23 09:04 08/28/23 07:52 75 08/28/23 06:28 88 190/89 H 08/28/23 05:09 78 20 97 08/28/23 04:54 95 H 183/120 H 08/28/23 04:00 95 H 20 194/99 H 96 08/28/23 02:57 95 08/28/23 02:40 89 26 H 193/105 H 95 08/28/23 02:24 97 H 20 92 08/28/23 01:59 96 H 08/28/23 01:55 97 08/28/23 01:55 08/28/23 01:47 37.0 C 103 H 24 203/123 H 88 L O2 Del Method O2 Flow Rate 08/28/23 09:04 Nasal Cannula 5 08/28/23 07:52 08/28/23 06:28 08/28/23 05:09 Nasal Cannula 4 08/28/23 04:54 08/28/23 04:00 Nasal Cannula 4 08/28/23 02:57 Nasal Cannula 3 08/28/23 02:40 Oxymask 4 08/28/23 02:24 Oxymask 5 08/28/23 01:59 08/28/23 01:55 Oxymask 8 08/28/23 01:55 Oxymask 8 08/28/23 01:47 Nasal Cannula 2
[2023-08-28] MEDS ORDERED: SODIUM CHLORIDE 0.9% 1,000 ML IV PRN (11:54)
--- NOTE | 2023-08-28 12:58 | Electrocardiogram Report ---
Test Reason : Blood Pressure : / mmHG Vent. Rate : 100 BPM Atrial Rate : 100 BPM P-R Int : 174 ms QRS Dur : 094 ms QT Int : 346 ms P-R-T Axes : 030 001 126 degrees QTc Int : 446 ms Poor data quality, interpretation may be adversely affected Sinus rhythm with Premature atrial complexes Left ventricular hypertrophy with repolarization abnormality Abnormal ECG When compared with ECG of 12-JUN-2023 02:20, Premature atrial complexes are now Present Confirmed by Alexis Lafleur ([id number]) on 08/28/2023 12:58:26 PM Referred By: REFERRED SELF Confirmed By:Alexis Lafleur
[2023-08-28] MEDS ORDERED: EPOETIN ALFA 10,000 UNITS in SYRINGE 0 ML IV SCH (14:15)
--- NOTE | 2023-08-28 15:14 | Ultrasound Report ---
ULTRASOUND GUIDED THORACENTESIS CLINICAL HISTORY: Loculated left-sided pleural effusion. Procedure: Procedure and risks were explained. Informed consent was obtained. A final timeout was com pleted. Sonographic examination revealed a large loculated left pleural effusion. The skin of the le ft posterior chest was prepped and draped in sterile fashion. 1% buffered lidocaine was utilized for skin anesthesia. Utilizing ultrasound guidance, a 5 [place]ian safety centesis catheter was introduced i nto the pleural space and 650 ml of sanguinous fluid was drained and discarded. Ultrasound images we re obtained. The catheter was removed. Post procedure scanning revealed a decrease in the size of the pleural effusion. Postprocedural chest x-ray showed no pneumothorax. Complication: No immediate. Drama Professor: Joseph Oakes PA-C. IMPRESSION: Ultrasound guided thoracentesis as described above. Loculated left pleural effusion aida ins. Performed, dictated, and signed by Joseph Oakes PA-C; to be co-signed by Dr. Chip Henderson. Electronically signed by: Chip Henderson M.D. 08/28/2023 4:04 PM
[2023-08-28] MEDS: EPOETIN ALFA 10,000 UNITS/ML VIAL IV ONE (17:54)
[2023-08-28] MEDS: PATIROMER CALCIUM SORBITEX 8.4 GM PACK PO SCH (18:39)
[2023-08-28] MEDS: ATORVASTATIN 40 MG TAB PO SCH (20:09)
[2023-08-29 06:16] LABS: Basophils # (auto) 0.04 K/uL (0.00-0.20); Basophils % (auto) 0.4 %; Eosinophils # (auto) 0.73 K/uL (0.00-0.50); Eosinophils % (auto) 7.8 %; Hematocrit (blood only) 30.1 % (42.0-52.0); Hemoglobin 9.7 g/dl (14.0-18.0); Immature Granulocytes # (auto) 0.03 K/uL (0.01-0.20); Immature Granulocytes % (auto) 0.3 %; Lymphocytes # (auto) 0.88 K/uL (1.20-3.40); Lymphocytes % (auto) 9.4 %; Mean Corpuscular Hemoglobin 28.1 pg (25.0-34.0); Mean Corpuscular Hgb Conc 32.2 g/dL (32.0-36.0); Mean Corpuscular Volume 87.2 fL (80.0-100.0); Mean Platelet Volume 10.8 fL (9.4-12.4); Monocytes # (auto) 0.82 K/uL (0.11-0.59); Monocytes % (auto) 8.8 %; Neutrophils # (auto) 6.87 K/uL (1.40-6.50); Neutrophils % (auto) 73.3 %; Platelet Count 201 K/uL (130-400); RDW Coefficient of Variation 16.5 % (11.5-14.5); RDW Standard Deviation 51.9 fL (36.4-46.3); Red Blood Count 3.45 M/uL (4.70-6.10); White Blood Count 9.37 K/ul (4.8-10.8)
[2023-08-29 06:30] LABS: BUN Creatinine Ratio 6.4 (10-20); Calcium 9.5 mg/dl (8.6-10.3); Creatinine Clr Calc Pharmacy 8.3 ml/min; Est GFR (African American) 7.6 ml/min; Est GFR (Non-African American) 6.5 ml/min; Phosphorus 5.4 mg/dl (2.5-4.9); Potassium 4.2 mmol/L (3.5-5.1)
[2023-08-29 07:40] LABS: Estimated Average Glucose 114 mg/dl; Hemoglobin A1C 5.6 % (4.5-5.6)
--- NOTE | 2023-08-29 08:20 | Electrocardiogram Report ---
Test Reason : Blood Pressure : / mmHG Vent. Rate : 071 BPM Atrial Rate : 071 BPM P-R Int : 176 ms QRS Dur : 096 ms QT Int : 428 ms P-R-T Axes : 045 -08 171 degrees QTc Int : 465 ms Sinus rhythm with frequent Premature atrial complexes Left ventricular hypertrophy with repolarization abnormality Poor R wave progression, consider anterior AK vs. lead placement vs. LVH Prolonged QT Abnormal ECG When compared with ECG of 28-AUG-2023 07:18, No significant change Confirmed by Alexis Lafleur ([id number]) on 08/29/2023 8:19:33 AM Referred By: REFERRED SELF Confirmed By:Alexis Lafleur
--- NOTE | 2023-08-29 09:21 | Hospitalist Progress Note ---
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 Paroxysmal atrial flutter, valvular heart disorder, P ANCA vasculitis as per records, hypertension, aortic ectasia, history of NV, anemia of chronic disease, secondary hyperparathyroidism, hyperlipidemia, history of acute pulm edema, history of recurrent pleural effusion s/p thoracocentesis and recurrent admissions for respiratory failure and pleural effusions comes in because of shortness and chest pain. Patient is on home oxygen at 1 L. Currently requiring 4 L. Feeling short of breath since last 2 to 3 days. Having cough. Denies any fevers. Last 2 days he is having chest pain middle of the chest mild in nature. Constant pain. No radiation. Denies any headache. No earache or runny nose or sore throat. No fevers. Appetite is down since yesterday. No nausea or vomiting. No abdominal pain. Normal bowel movement. Stools are always black because he takes iron pills as per patient. Does not make any urine. Ambulating okay. Lives with his . Medical noncompliance per history. Acute on chronic hypoxemic respiratory failure On home oxygen 1 L On admission requiring 4- 5L Acute on chronic systolic CHF Recurrent pleural effusions Recurrent pleural effusions Getting thoracocentesis by IR frequently Recurrent admissions Had thoracocentesis twice in July 2023 Last thoracocentesis on August 22 2023 700mL of fluid was taken out from left side Seems pleural effusion has recurred Consulted pulmonary for recurrent pulm effusions - Hypoxia secondary to volume overload and bilateral effusions. His left pleural effusion appears to be progressively loculated. His respiratory status did respond favorably to left thoracentesis and his x-ray appears to be improved. He will likely need thoracic surgery intervention to reopen the space if he continues to have loculations and paroxysmal bouts of dyspnea. No further input from pulmonary at this time. Consulted IR for thoracentesis - s/p left thoracentesis w/ 650 mL removed (08/28/23) Acute on chronic systolic CHF Valvular heart disease Had HD on 08/28/23 while in the hospital Chest pain EKG no acute findings Troponin is 308. Has chronic elevation of troponin follow serial enzymes and obtained echo Keep him n.p.o. Cardiology consulted - 2/6/24 Clinically improved with left-sided thoracentesis and hemodialysis. Scheduled for additional hemodialysis treatment in a.m. 08/30/2023. Repeat x-ray tomorrow for reassessment of right-sided pleural effusion. Blood pressure improved. Continue current meds including metoprolol succinate, losartan, hydralazine, amlodipine, Isordil, and atorvastatin. Telemetry floor Hypertensive urgency Continue home medications of metoprolol succinate, hydralazine, losartan, amlodipine, Imdur Placed on IV labetalol as needed Question of being on metoprolol succinate versus Coreg -> follow cardiology recs Cardio and nephro consulted close monitor End-stage renal disease On dialysis Nephrology consulted Leukocytosis Has cough, poss. pna Empiric Rocephin and Doxy procalcitonin 0.24 Discuss w/ pulm. if need to cont. abx History of hyperkalemia On [place] Potassium 4.6 on admission History of large pericardial fusion in setting of acute renal failure resolved Atrial flutter in the above setting spontaneously resolved as per records Hyperlipidemia On statin Prediabetes Current HbA1c 5.6% Chronic anemia Hemoglobin 11.1 DVT prophylaxis Heparin subcu Disposition Telemetry floor Full code Admission and Anticipated Discharge Date Admission Date: August 28, 2023 Subjective Pt seen in follow up of acute on chronic hypoxia, ESRD on HD, pl. effusions recurrent - pt is s/p thoracentesis yesterday Also underwent HD yesterday. feeling much better, but still little short of breath. Sitting up in bed in NAD, on 2L of suppl. O2 Denies any chest pain. also denies any abdominal pain nausea vomiting, feeling dizzy or lightheaded. Review of Systems 2 Review of Systems: All systems reviewed & are unremarkable except as noted in Subjective Physical Exam Physical Exam: General- WD/WN M in NAD, on suppl. O2 Head- atraumatic Eyes- PERRL. ENT- oropharynx clear Neck- supple, no JVD. Lungs- clear to auscultation mild bibasilar crackles. no wheezing Heart- regular rhythm; no murmur, no gallop. Abdomen- normal bowel sounds, soft, nontender, no distension. Extremities- mild pretibial edema, no erythema seen. Neuro- alert, oriented ; PERRL no facial palsy; no dysarthria; moves extremities. Skin- warm & dry Results & Data Results & Data Vital Signs (Past 12 Hours) Vital Signs Temp Pulse Pulse Resp BP Pulse Ox O2 Del Method 08/29/23 08:00 84 08/29/23 08:00 Nasal Cannula 08/29/23 07:18 37.0 C 67 17 163/83 H 91 Nasal Cannula 08/29/23 05:03 37.1 C 66 20 175/87 H 96 Nasal Cannula 08/28/23 22:26 37.3 C 76 20 167/78 H 93 Nasal Cannula 08/28/23 21:51 Nasal Cannula O2 Flow Rate 08/29/23 08:00 08/29/23 08:00 2 08/29/23 07:18 2 08/29/23 05:03 3 08/28/23 22:26 3 08/28/23 21:51 5 Laboratory Results 08/29/23 08/28/23 08/28/23 Range/Units 05:53 19:05 14:26 WBC 9.37 (4.8-10.8) K/ul RBC 3.45 L (4.70-6.10) M/uL Hgb 9.7 L (14.0-18.0) g/dl Hct 30.1 L (42.0-52.0) % MCV 87.2 (80.0-100.0) fL MCH 28.1 (25.0-34.0) pg MCHC 32.2 (32.0-36.0) g/dL RDW Std Deviation 51.9 H (36.4-46.3) fL RDW Coeff of Diamond 16.5 H (11.5-14.5) % Plt Count 201 (130-400) K/uL MPV 10.8 (9.4-12.4) fL Immature Gran % (Auto) 0.3 % Neut % (Auto) 73.3 % Lymph % (Auto) 9.4 % [place] % (Auto) 8.8 % Eos % (Auto) 7.8 % Baso % (Auto) 0.4 % Neut # (Auto) 6.87 H (1.40-6.50) K/uL Lymph # (Auto) 0.88 L (1.20-3.40) K/uL [place] # (Auto) 0.82 H (0.11-0.59) K/uL Eos # (Auto) 0.73 H (0.00-0.50) K/uL Baso # (Auto) 0.04 (0.00-0.20) K/uL Immature Gran # (Auto) 0.03 (0.01-0.20) K/uL Sodium 140 (136-145) mmol/L Potassium 4.2 (3.5-5.1) mmol/L Chloride 101 (98-107) mmol/L Carbon Dioxide 27 (21-32) mmol/L Anion Gap 12 H (3-11) BUN 49 H D (6-23) mg/dl Creatinine 7.68 H* D (0.6-1.4) mg/dl Est Cr Clr Drug Dosing 8.3 ml/min Est GFR ( Amer) 7.6 ml/min Est GFR (Non-Af Amer) 6.5 ml/min BUN/Creatinine Ratio 6.4 L (10-20) Glucose 86 (70-99(Fasting)) mg/dl Estimat Average Glucose 114 mg/dl Hemoglobin A1c 5.6 (4.5-5.6) % Calcium 9.5 (8.6-10.3) mg/dl Phosphorus 5.4 H (2.5-4.9) mg/dl Magnesium 2.0 (1.7-2.4) mg/dl Troponin I High Sens 590.3 H* 530.0 H* D (0-20) pg/ml Medications Administered Current Inpatient Medications Acetaminophen (Acetaminophen 325 Mg Tab) 650 mg PO Q4H PRN PRN Reason: Pain or Fever Stop: 09/27/23 04:32 Allopurinol (Allopurinol 100 Mg Tab) 100 mg PO DAILY [facility] Stop: 09/27/23 08:59 Last Admin: 08/29/23 08:22 Dose: 100 mg Amlodipine Besylate (Amlodipine Besylate 5 Mg Tab) 10 mg PO DAILY [facility] Stop: 09/27/23 08:59 Last Admin: 08/29/23 08:21 Dose: 10 mg Atorvastatin Calcium (Atorvastatin 40 Mg Tab) 40 mg PO HS [facility] Stop: 09/27/23 20:59 Last Admin: 08/28/23 20:09 Dose: 40 mg Cinacalcet (Cinacalcet Hcl 30 Mg Tab) 30 mg PO DAILY [facility] Stop: 09/27/23 08:59 Last Admin: 08/29/23 08:21 Dose: 30 mg Ergocalciferol (Ergocalciferol 1250 Mcg (50,000 Units) Cap) 1,250 mcg PO Chery@0900 [facility] Stop: 10/03/23 08:59 Guaifenesin (Guaifenesin 600 Mg Tabcr) 600 mg PO BID PRN PRN Reason: Congestion Stop: 09/27/23 04:32 Heparin Sodium (Porcine) (Heparin Sod 5,000 Unit/0.5 Ml Vial) 5,000 units SQ Q8 [facility] Stop: 09/27/23 05:59 Last Admin: 08/29/23 04:52 Dose: 5,000 units Hydralazine HCl (Hydralazine Tab 50 Mg Tab) 100 mg PO TID [facility] Stop: 09/27/23 08:59 Last Admin: 08/29/23 08:20 Dose: 100 mg Ceftriaxone Sodium 2,000 mg/ (Dextrose) 50 mls @ 100 mls/hr IV Q24H [facility]; Protocol Stop: 09/04/23 04:59 Last Infusion: 08/29/23 05:22 Dose: Infused Doxycycline Hyclate 100 mg/ (Dextrose) 100 mls @ 50 mls/hr IV Q12H [facility] Stop: 09/04/23 04:59 Last Infusion: 08/29/23 07:13 Dose: Infused Isosorbide Dinitrate (Isosorbide Dinitrate 20 Mg Tab) 20 mg PO TID@0700,1200,1700 [facility] Stop: 09/27/23 06:59 Last Admin: 08/29/23 06:21 Dose: 20 mg Labetalol HCl (Labetalol Hcl Iv 5 Mg/Ml 20ml) 10 mg IV Q4H PRN PRN Reason: Hypertension Stop: 09/27/23 04:22 Last Admin: 08/28/23 04:54 Dose: 10 mg Losartan Potassium (Losartan Potassium 50 Mg Tab) 50 mg PO AMHS [facility] Stop: 09/27/23 08:59 Last Admin: 08/29/23 08:21 Dose: 50 mg Metoprolol Succinate (Metoprolol Succ 50mg Ext Rel Tab) 100 mg PO QAM [facility] Stop: 09/27/23 08:59 Last Admin: 08/29/23 08:21 Dose: 100 mg Nitroglycerin (Nitroglycerin Sl 0.4 Mg/Tab Tab) 0.4 mg SL Q5M PRN PRN Reason: Chest Pain Stop: 09/27/23 04:32 Patiromer (Patiromer Calcium Sorbitex 8.4 Gm Pack) 8.4 gm PO QAM [facility] Stop: 09/27/23 08:59 Last Admin: 08/28/23 18:39 Dose: Not Given Polyethylene Glycol (Polyethylene (Miralax) 17 Gm Pack) 17 gm PO DAILY PRN PRN Reason: Constipation Stop: 09/27/23 04:32 Vitamin B Complex/Folic Acid (Nephrocaps) 1 cap PO DAILY [facility] Stop: 09/27/23 08:59 Last Admin: 08/29/23 08:21 Dose: 1 cap
--- NOTE | 2023-08-29 15:37 | Cardiology Progress Note ---
Date of Service August 29, 2023 Assessment & Plan (1) Acute hypoxemic respiratory failure: (2) Recurrent pleural effusion: (3) Acute heart failure with reduced ejection fraction and diastolic dysfunction: (4) Hypertensive heart disease: (5) ESRD on hemodialysis: Plan Medically complex 67 year old male with recurrent acute respiratory failure with b/l pleural effusions complicated by ESRD on HD, hypertensive heart disease with mildly reduced LVEF at 45% and stable from prior findings. Patient underwent repeat left sided thoracentesis on the left this morning by IR. Consider right sided thoracentesis? Patient to have dialysis today for additional volume removal. Patient is Anuric and would not benefit from diuretic therapy. He is hypertensive on arrival and remains hypertensive this morning but patient just received AM meds. Questionable compliance with meds at home per documentation. Continue amlodipine 10 mg, hydralazine 100 mg TID, isosorbide 20 TID, losartan 50 mg BID, metoprolol 100 mg daily Per outpatient med list he takes metoprolol and carvedilol? He is mildly tachycardic with frequent PVC's on telemetry. Await dialysis. If BP remains hypertensive, increase metoprolol to 100 mg BID Echo reviewed from this morning with mildly reduced LVEF at 45-50%, mild - stable findings from prior echo. Elevated troponin which is chronic finding. Not indicative of ACS. 08/29/23: Interval improvement in respiratory status compared to yesterday. Underwent Left sided thoracentesis 2/5 Right persistent moderate effusion noted. Consider repeat chest xray tomorrow. Benefit of right sided thoracentesis? Bp trending down with HD and oral/home medications. Case discussed with Dr. Bunch I spent a total of 30 minutes on the date of service in preparation, delivery, and documentation of the care provided to this patient, excluding any time spent in the performance of separately billed services. Ana Amaral PA-C Department of Cardiology, [facility] This chart was completed in part utilizing Speech Voice Recognition Software. Grammatical errors, random word insertions, pronoun errors, and incomplete sentences are an occasional consequence of this system due to software limitations, ambient noise, and hardware issues. Any formal questions or concerns about the content, text, or information contained within the body of this dictation should be directly addressed to the provider for clarification. Admission and Anticipated Discharge Date Admission Date: August 28, 2023 Supervising Physician Co-Signing Physician Notes I have reviewed the advance practitioner's documentation, and I agree with, and take responsibility for the plan of care. 67-year-old Tristanian-speaking patient presented to the emergency department with progressive shortness of breath. Underwent left-sided thoracentesis 08/28/2023. History taken via "[employer]" per patient preference. Denies chest pain or heaviness. Feeling much better today after hemodialysis and thoracentesis. PE: Hypertensive: General: NAD, awake alert and oriented x 3. Heart: Regular rhythm, normal S1-S2. 2/6 systolic ejection murmur. Lungs: Diminished breath sounds at the right base. No rales, rhonchi, or wheeze. Extremities: No edema. A/P: 67-year-old male admitted with acute decompensated heart failure, recurrent bilateral pleural effusions in the setting of end-stage renal disease. Clinically improved with left-sided thoracentesis and hemodialysis. Scheduled for additional hemodialysis treatment in a.m. 08/30/2023. Repeat x-ray tomorrow for reassessment of right-sided pleural effusion. Blood pressure improved. Continue current meds including metoprolol succinate, losartan, hydralazine, amlodipine, Isordil, and atorvastatin. I spent a total of 25 minutes on the date of service in preparation, delivery, and documentation of the care provided to this patient, excluding any time spent in the performance of separately billed services. Subjective Discussion with patient using [employer]. Patient declines use of translation services line. Reports feeling "good" today. SOB improved. Slept better last night. no chest pain. BP also trending down. No dizziness. No edema Review of Systems Review of Systems: All systems reviewed & are unremarkable except as noted in HPI & below Physical Exam Constitutional: WD/WN, vitals as above average body habitus; no acute distress Neck: normal visual inspection Respiratory: Auscultation: + diminished lung sounds Cardiovascular: Rate/Rhythm: regular rate and regular rhythm Heart Sounds: + murmur (II/ systolic murmur LSB) Extremities: no edema Gastrointestinal (Abdomen): normal bowel sounds, soft, nontender, no hepatosplenomegaly Musculoskeletal: no cyanosis or clubbing, extremities motor strength 5/5 Neurologic: PERRL, EOMI, accommodation nl, no face palsy, no dysarthria Results & Data Vital Signs (Past 12 Hours) Vital Signs Temp Pulse Pulse Resp BP Pulse Ox O2 Del Method 08/29/23 15:00 37.0 C 69 17 119/71 91 Nasal Cannula 08/29/23 10:45 36.9 C 76 18 144/82 H 91 Nasal Cannula 08/29/23 08:00 84 08/29/23 08:00 Nasal Cannula 08/29/23 07:18 37.0 C 67 17 163/83 H 91 Nasal Cannula 08/29/23 05:03 37.1 C 66 20 175/87 H 96 Nasal Cannula O2 Flow Rate 08/29/23 15:00 2 08/29/23 10:45 1 08/29/23 08:00 08/29/23 08:00 2 08/29/23 07:18 2 08/29/23 05:03 3 Laboratory Results Cardiac Enzymes 08/28/23 Range/Units 19:05 Troponin I High Sens 590.3 H* (0-20) pg/ml CBC 08/29/23 Range/Units 05:53 WBC 9.37 (4.8-10.8) K/ul RBC 3.45 L (4.70-6.10) M/uL Hgb 9.7 L (14.0-18.0) g/dl Hct 30.1 L (42.0-52.0) % Plt Count 201 (130-400) K/uL Neut # (Auto) 6.87 H (1.40-6.50) K/uL Lymph # (Auto) 0.88 L (1.20-3.40) K/uL [place] # (Auto) 0.82 H (0.11-0.59) K/uL Eos # (Auto) 0.73 H (0.00-0.50) K/uL Baso # (Auto) 0.04 (0.00-0.20) K/uL Comprehensive Metabolic Panel 08/29/23 Range/Units 05:53 Sodium 140 (136-145) mmol/L Potassium 4.2 (3.5-5.1) mmol/L Chloride 101 (98-107) mmol/L Carbon Dioxide 27 (21-32) mmol/L BUN 49 H D (6-23) mg/dl Creatinine 7.68 H* D (0.6-1.4) mg/dl Glucose 86 (70-99(Fasting)) mg/dl Calcium 9.5 (8.6-10.3) mg/dl Intake and Output 08/29/23 08/29/23 08/29/23 06:59 14:59 22:59 Intake Total 208.334 / 508.334 172.5 / 172.5 Balance 208.334 / 508.334 172.5 / 172.5 Intake: IV 63.334 / 263.334 52.5 / 52.5 Doxycycline Hyclate 100 mg In 13.334 / 213.334 52.5 / 52.5 Dextrose 5% Mini-B 100 ml @ 50 mls/hr IV Q12H [facility] Rx#:[id number] cefTRIAXone SODIUM 2,000 mg In 50 / 50 Dextrose 5 % Mini-B 50 ml @ 100 mls/hr IV Q24H [facility] Rx#: [id number] Oral 145 / 245 120 / 120 Other: # Unmeasured Voids 0 Weight 68.7 kg Weight Measurement Method [facility] Diagnostic Findings Telemetry reviewed: NSR in the s. Rare PVC. Chest xray reviewed from yesterday 08/28/23: IMPRESSION: 1. No pneumothorax following left thoracentesis. Significant decrease in size of the left pleural effusion. 2. Persistent pulmonary edema and pleural effusions, as above. 3. 4 cm left midlung density likely reflecting round atelectasis. However this should be assessed on follow-up exams to ensure stability/resolution. Medications Administered Current Inpatient Medications Acetaminophen (Acetaminophen 325 Mg Tab) 650 mg PO Q4H PRN PRN Reason: Pain or Fever Stop: 09/27/23 04:32 Allopurinol (Allopurinol 100 Mg Tab) 100 mg PO DAILY [facility] Stop: 09/27/23 08:59 Last Admin: 08/29/23 08:22 Dose: 100 mg Amlodipine Besylate (Amlodipine Besylate 5 Mg Tab) 10 mg PO DAILY [facility] Stop: 09/27/23 08:59 Last Admin: 08/29/23 08:21 Dose: 10 mg Atorvastatin Calcium (Atorvastatin 40 Mg Tab) 40 mg PO HS [facility] Stop: 09/27/23 20:59 Last Admin: 08/28/23 20:09 Dose: 40 mg Cinacalcet (Cinacalcet Hcl 30 Mg Tab) 30 mg PO DAILY [facility] Stop: 09/27/23 08:59 Last Admin: 08/29/23 08:21 Dose: 30 mg Epoetin Jere (Epoetin Jere 10,000 Units/Ml Vial) 10,000 units IV ONE ONE Stop: 08/30/23 07:01 Ergocalciferol (Ergocalciferol 1250 Mcg (50,000 Units) Cap) 1,250 mcg PO Chery@0900 [facility] Stop: 10/03/23 08:59 Guaifenesin (Guaifenesin 600 Mg Tabcr) 600 mg PO BID PRN PRN Reason: Congestion Stop: 09/27/23 04:32 Heparin Sodium (Porcine) (Heparin Sod 5,000 Unit/0.5 Ml Vial) 5,000 units SQ Q8 [facility] Stop: 09/27/23 05:59 Last Admin: 08/29/23 13:03 Dose: 5,000 units Hydralazine HCl (Hydralazine Tab 50 Mg Tab) 100 mg PO TID [facility] Stop: 09/27/23 08:59 Last Admin: 08/29/23 13:03 Dose: 100 mg Ceftriaxone Sodium 2,000 mg/ (Dextrose) 50 mls @ 100 mls/hr IV Q24H [facility]; Protocol Stop: 09/04/23 04:59 Last Infusion: 08/29/23 05:22 Dose: Infused Doxycycline Hyclate 100 mg/ (Dextrose) 100 mls @ 50 mls/hr IV Q12H [facility] Stop: 09/04/23 04:59 Last Infusion: 08/29/23 07:13 Dose: Infused Sodium Chloride (Nss) 1,000 mls @ 0 mls/hr IV .Q0M PRN PRN Reason: For Hemodialysis Use ONLY Stop: 08/30/23 12:59 Isosorbide Dinitrate (Isosorbide Dinitrate 20 Mg Tab) 20 mg PO TID@0700,1200,1700 [facility] Stop: 09/27/23 06:59 Last Admin: 08/29/23 13:03 Dose: 20 mg Labetalol HCl (Labetalol Hcl Iv 5 Mg/Ml 20ml) 10 mg IV Q4H PRN PRN Reason: Hypertension Stop: 09/27/23 04:22 Last Admin: 08/28/23 04:54 Dose: 10 mg Losartan Potassium (Losartan Potassium 50 Mg Tab) 50 mg PO AMHS [facility] Stop: 09/27/23 08:59 Last Admin: 08/29/23 08:21 Dose: 50 mg Metoprolol Succinate (Metoprolol Succ 50mg Ext Rel Tab) 100 mg PO QAM [facility] Stop: 09/27/23 08:59 Last Admin: 08/29/23 08:21 Dose: 100 mg Nitroglycerin (Nitroglycerin Sl 0.4 Mg/Tab Tab) 0.4 mg SL Q5M PRN PRN Reason: Chest Pain Stop: 09/27/23 04:32 Patiromer (Patiromer Calcium Sorbitex 8.4 Gm Pack) 8.4 gm PO QAM [facility] Stop: 09/27/23 08:59 Last Admin: 08/29/23 10:48 Dose: 8.4 gm Polyethylene Glycol (Polyethylene (Miralax) 17 Gm Pack) 17 gm PO DAILY PRN PRN Reason: Constipation Stop: 09/27/23 04:32 Vitamin B Complex/Folic Acid (Nephrocaps) 1 cap PO DAILY [facility] Stop: 09/27/23 08:59 Last Admin: 08/29/23 08:21 Dose: 1 cap (4) Hypertensive heart disease Heart failure chronicity: acute on chronic Heart failure presence: with heart failure Heart failure type: systolic Qualified Code(s): I11.0 - Hypertensive heart disease with heart failure; I50.23 - Acute on chronic systolic (conge stive) heart failure
--- NOTE | 2023-08-29 16:40 | Electrocardiogram Report ---
Test Reason : Blood Pressure : / mmHG Vent. Rate : 090 BPM Atrial Rate : 080 BPM P-R Int : 182 ms QRS Dur : 090 ms QT Int : 392 ms P-R-T Axes : 042 -34 102 degrees QTc Int : 479 ms Sinus rhythm with Premature atrial complexes Left axis deviation Poor R wave progression, consider anterior OR vs. lead placement vs. LVH Voltage criteria for left ventricular hypertrophy no longer present Abnormal ECG When compared with ECG of 28-AUG-2023 01:43, PRWP now present ST no longer depressed in Lateral leads Nonspecific T wave abnormality has replaced inverted T waves in Lateral leads Confirmed by Alexis Lafleur ([id number]) on 08/29/2023 4:39:42 PM Referred By: REFERRED SELF Confirmed By:Alexis Lafleur
[2023-08-30 06:13] LABS: Hematocrit (blood only) 29.9 % (42.0-52.0); Hemoglobin 9.3 g/dl (14.0-18.0); Mean Corpuscular Hemoglobin 27.8 pg (25.0-34.0); Mean Corpuscular Hgb Conc 31.1 g/dL (32.0-36.0); Mean Corpuscular Volume 89.3 fL (80.0-100.0); Platelet Count 203 K/uL (130-400); RDW Coefficient of Variation 16.5 % (11.5-14.5); RDW Standard Deviation 53.5 fL (36.4-46.3); Red Blood Count 3.35 M/uL (4.70-6.10); White Blood Count 8.62 K/ul (4.8-10.8)
[2023-08-30 06:34] LABS: BUN Creatinine Ratio 6.4 (10-20); Calcium 9.4 mg/dl (8.6-10.3); Creatinine Clr Calc Pharmacy 6.6 ml/min; Est GFR (African American) 5.7 ml/min; Magnesium 2.1 mg/dl (1.7-2.4); Phosphorus 5.6 mg/dl (2.5-4.9); Potassium 4.2 mmol/L (3.5-5.1)
[2023-08-30] MEDS ORDERED: SODIUM CHLORIDE 0.9% 1,000 ML IV PRN (07:00)
--- NOTE | 2023-08-30 10:58 | Electrocardiogram Report ---
Test Reason : Blood Pressure : / mmHG Vent. Rate : 065 BPM Atrial Rate : 065 BPM P-R Int : 178 ms QRS Dur : 092 ms QT Int : 442 ms P-R-T Axes : 030 -09 184 degrees QTc Int : 459 ms Sinus rhythm with Premature atrial complexes with Aberrant conduction Left ventricular hypertrophy with repolarization abnormality When compared with ECG of 29-AUG-2023 05:36, No significant change was found Confirmed by Alexis Lafleur ([id number]) on 08/30/2023 10:58:28 AM Referred By: REFERRED SELF Confirmed By:Alexis Lafleur
--- NOTE | 2023-08-30 11:02 | Dialysis Progress Note ---
Date of Service August 30, 2023 Assessment & Plan Admission and Anticipated Discharge Date Admission Date: August 28, 2023 Subjective Assessment & Plan (1) Acute hypoxemic respiratory failure: From b/l Pl eff and S/p tap monday and needs Frequently last done a week ago 08/22. being followed by Pulmonary. Will try to remove what we are allowed. dialysis for 3.5 hrs and take 2.5 kilo off. Does not have any edema though. (2) ESRD (end stage renal disease) on dialysis: today is his dialysis day. Will do As discussed above--3.5 hrs through his AVF 2k bath and take 2.5 kilo off. BP will be lower hopefully after dialysis. Amlo and Hydralazine seems maximal. Can raise the losartan dose. (3) Pleural effusion: S--Seen during dialysis. Feels fine. Better breathing. AVF and BP fine ExaM: Awake and alert x 3. NO resp Distress now. Normal Speech. On 5 liters o2 now. Chest --b/l Decreased BS at bases and occ [place]kcles CVS--RRR. Soft Sys murmur. No edema. Abd--Soft Non tender. Ext--No edema. Neuro--Awake and alert. normal Speech. Results & Data Vital Signs (Past 12 Hours) Vital Signs Temp Pulse Pulse Resp BP BP Pulse Ox 08/30/23 10:30 60 160/87 H 08/30/23 10:00 57 L 154/85 H 08/30/23 09:30 6 L 152/89 H 08/30/23 09:29 08/30/23 09:02 36.7 C 69 148/93 H 08/30/23 08:55 36.7 C 64 08/30/23 07:23 36.8 C 61 17 190/83 H 95 08/30/23 05:52 66 08/30/23 03:00 37.0 C 61 16 145/80 H 94 O2 Del Method 08/30/23 10:30 08/30/23 10:00 08/30/23 09:30 08/30/23 09:29 Room Air 08/30/23 09:02 08/30/23 08:55 08/30/23 07:23 Room Air 08/30/23 05:52 08/30/23 03:00 Nasal Cannula
[2023-08-30] MEDS: EPOETIN ALFA 10,000 UNITS/ML VIAL IV ONE (12:53)
--- NOTE | 2023-08-30 14:56 | XRay Report ---
XR chest 1V portable HISTORY: 67 years-old Male fu pleural effusion follow-up study in a patient with pleural effusions COMPARISON: Chest radiograph 08/28/2023 TECHNIQUE: AP view the chest FINDINGS: Cardiac silhouette is enlarged. No pneumothorax. Stable slightly improved appearance of the pulmonary edema. Persistent layering pleural effusions with bibasilar consolidation, mildly improved. 4 cm mid lung density appears unchanged. The bones appear grossly intact. IMPRESSION: 1. Cardiomegaly with mildly improved pulmonary edema. 2. Stable layering pleural effusions with mildly improved bibasilar consolidation. 3. Unchanged 4 cm round density of the lateral left lung base which may represent round atelectasis. 4. No pneumothorax. ACT 112: Negative or not required by law. The above report was generated using voice recognition software. It may contain grammatical, syntax o r spelling errors. Electronically signed by: Chip Henderson M.D. 08/30/2023 2:55 PM
--- NOTE | 2023-08-30 18:06 | Hospitalist Progress Note ---
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 Paroxysmal atrial flutter, valvular heart disorder, P ANCA vasculitis as per records, hypertension, aortic ectasia, history of [place], anemia of chronic disease, secondary hyperparathyroidism, hyperlipidemia, history of acute pulm edema, history of recurrent pleural effusion s/p thoracocentesis and recurrent admissions for respiratory failure and pleural effusions comes in because of shortness and chest pain. Patient is on home oxygen at 1 L. Currently requiring 4 L. Feeling short of breath since last 2 to 3 days. Having cough. Denies any fevers. Last 2 days he is having chest pain middle of the chest mild in nature. Constant pain. No radiation. Denies any headache. No earache or runny nose or sore throat. No fevers. Appetite is down since yesterday. No nausea or vomiting. No abdominal pain. Normal bowel movement. Stools are always black because he takes iron pills as per patient. Does not make any urine. Ambulating okay. Lives with his . Medical noncompliance per history. Acute on chronic hypoxemic respiratory failure On home oxygen 1 L On admission requiring 4- 5L Acute on chronic systolic CHF Recurrent pleural effusions Recurrent pleural effusions Getting thoracocentesis by IR frequently Recurrent admissions Had thoracocentesis twice in July 2023 Last thoracocentesis on August 22 2023 700mL of fluid was taken out from left side Seems pleural effusion has recurred Consulted pulmonary for recurrent pulm effusions - Hypoxia secondary to volume overload and bilateral effusions. His left pleural effusion appears to be progressively loculated. His respiratory status did respond favorably to left thoracentesis and his x-ray appears to be improved. He will likely need thoracic surgery intervention to reopen the space if he continues to have loculations and paroxysmal bouts of dyspnea. No further input from pulmonary at this time. Consulted IR for thoracentesis - s/p left thoracentesis w/ 650 mL removed (08/28/23) Pt w/ improving O2 requirement. Acute on chronic systolic CHF Valvular heart disease Had HD on 08/28/23 and 08/30 while in the hospital Chest pain EKG no acute findings Troponin is 308. Has chronic elevation of troponin follow serial enzymes and obtained echo Keep him n.p.o. Cardiology consulted - 08/29/23 Clinically improved with left-sided thoracentesis and hemodialysis. Scheduled for additional hemodialysis treatment in a.m. 08/30/2023. Repeat x-ray tomorrow for reassessment of right-sided pleural e ffusion. Blood pressure improved. Continue current meds including metoprolol succinate, losartan, hydralazine, amlodipine, Isordil, and atorvastatin. BP still high, will add metoprolol in the night per cardio recs. Will monitor. Hypertensive urgency Continue home medications of metoprolol succinate, hydralazine, losartan, amlodipine, Imdur Placed on IV labetalol as needed Question of being on metoprolol succinate versus Coreg -> follow cardiology recs Cardio and nephro consulted close monitor End-stage renal disease On dialysis Nephrology consulted Leukocytosis Has cough, poss. pna Empiric Rocephin and Doxy procalcitonin 0.24 Discuss w/ pulm. if need to cont. abx History of hyperkalemia On Veltassa Potassium 4.6 on admission History of large pericardial fusion in setting of acute renal failure resolved Atrial flutter in the above setting spontaneously resolved as per records Hyperlipidemia On statin Prediabetes Current HbA1c 5.6% Chronic anemia Hemoglobin 11.1 DVT prophylaxis Heparin subcu Disposition Telemetry floor Full code Admission and Anticipated Discharge Date Admission Date: August 28, 2023 Subjective Patient was seen and examined at bedside. Patient was undergoing dialysis, on 2 L oxygen, NAD, resting comfortably. Patient denies any new acute event overnight, reports eating okay, reports feeling better, reports shortness of breath improving. Patient reports his baseline oxygen is 1 L. Blood pressure is still elevated, losartan seems to be at highest recommended daily dose. Adding metoprolol in the night. Will follow. Physical Exam Physical Exam: General- WD/WN M in NAD, on suppl. O2 Head- atraumatic Eyes- PERRL. ENT- oropharynx clear Neck- supple, no JVD. Lungs- mild bibasilar crackles. no wheezing Heart- regular rhythm; no murmur, no gallop. Abdomen- normal bowel sounds, soft, nontender, no distension. Extremities- mild pretibial edema, no erythema seen. Neuro- alert, oriented ; PERRL no facial palsy; no dysarthria; moves extremities. Skin- warm & dry Results & Data Results & Data Vital Signs (Past 12 Hours) Vital Signs Temp Pulse Pulse Resp BP BP Pulse Ox 08/30/23 17:16 37.1 C 64 18 153/74 H 95 08/30/23 14:16 60 08/30/23 12:00 60 166/87 H 08/30/23 11:35 65 163/93 H 08/30/23 11:33 67 191/101 H 08/30/23 11:30 63 159/80 H 08/30/23 11:00 51 L 182/93 H 08/30/23 10:30 60 160/87 H 08/30/23 10:00 57 L 154/85 H 08/30/23 09:30 6 L 152/89 H 08/30/23 09:29 08/30/23 09:02 36.7 C 69 148/93 H 08/30/23 08:55 36.7 C 64 08/30/23 07:23 36.8 C 61 17 190/83 H 95 O2 Del Method O2 Flow Rate 08/30/23 17:16 Nasal Cannula 1.0 08/30/23 14:16 08/30/23 12:00 08/30/23 11:35 08/30/23 11:33 08/30/23 11:30 08/30/23 11:00 08/30/23 10:30 08/30/23 10:00 08/30/23 09:30 08/30/23 09:29 Room Air 08/30/23 09:02 08/30/23 08:55 08/30/23 07:23 Room Air
[2023-08-30] MEDS: guaiFENesin 600 MG TABCR PO PRN (21:19)
[2023-08-30] MEDS: METOPROLOL SUCC 50MG EXT REL TAB PO SCH (21:21)
[2023-08-30] MEDS: ACETAMINOPHEN 325 MG TAB PO PRN (22:31)
[2023-08-31 05:22] LABS: Hemoglobin 9.8 g/dl (14.0-18.0); Mean Corpuscular Hemoglobin 27.5 pg (25.0-34.0); Mean Corpuscular Hgb Conc 30.6 g/dL (32.0-36.0); Mean Corpuscular Volume 89.6 fL (80.0-100.0); Mean Platelet Volume 11.4 fL (9.4-12.4); Platelet Count 223 K/uL (130-400); RDW Coefficient of Variation 16.2 % (11.5-14.5); RDW Standard Deviation 53.5 fL (36.4-46.3); Red Blood Count 3.57 M/uL (4.70-6.10); White Blood Count 9.03 K/ul (4.8-10.8)
[2023-08-31 05:48] LABS: BUN Creatinine Ratio 5.1 (10-20); Calcium 9.3 mg/dl (8.6-10.3); Creatinine Clr Calc Pharmacy 8.7 ml/min; Est GFR (African American) 8.1 ml/min; Potassium 3.9 mmol/L (3.5-5.1)
--- NOTE | 2023-08-31 12:43 | Discharge Summary ---
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 Paroxysmal atrial flutter, valvular heart disorder, P ANCA vasculitis as per records, hypertension, aortic ectasia, history of [place], anemia of chronic disease, secondary hyperparathyroidism, hyperlipidemia, history of acute pulm edema, history of recurrent pleural effusion s/p thoracocentesis and recurrent admissions for respiratory failure and pleural effusions comes in because of shortness and chest pain. Patient is on home oxygen at 1 L. Currently requiring 4 L. Feeling short of breath since last 2 to 3 days. Having cough. Denies any fevers. Last 2 days he is having chest pain middle of the chest mild in nature. Constant pain. No radiation. Denies any headache. No earache or runny nose or sore throat. No fevers. Appetite is down since yesterday. No nausea or vomiting. No abdominal pain. Normal bowel movement. Stools are always black because he takes iron pills as per patient. Does not make any urine. Ambulating okay. Lives with his . Medical noncompliance per history. Past medical history. As mentioned above Past surgical history. Colonoscopy, intraperitoneal cath removal, Social history. . No smoking. 1 standard drink of alcohol per week. No drug use. Family history. Mother had lung cancer. Admission Exam Per Admitting Provider General- Not in distress Head- atraumatic Eyes- PERRL. ENT- oropharynx clear Neck- supple, no JVD. Lungs- clear to auscultation mild bibasilar crackles. no wheezing Heart- regular rhythm; no murmur, no gallop. Abdomen- normal bowel sounds, soft, nontender, no distension. Extremities- mild pretibial edema, no erythema seen. Neuro- alert, oriented ; PERRL no facial palsy; no dysarthria; moves extremities. Skin- warm & dry Principal Diagnosis Acute on chronic hypoxemic respiratory failure Acute on chronic systolic CHF Recurrent pleural effusion Discharge Exam General- WD/WN M in NAD, on suppl. O2 Head- atraumatic Eyes- PERRL. ENT- oropharynx clear Neck- supple, no JVD. Lungs- mild bibasilar crackles. no wheezing Heart- regular rhythm; no murmur, no gallop. Abdomen- normal bowel sounds, soft, nontender, no distension. Extremities- mild pretibial edema, no erythema seen. Neuro- alert, oriented ; PERRL no facial palsy; no dysarthria; moves extremities. 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 Paroxysmal atrial flutter, valvular heart disorder, P ANCA vasculitis as per records, hypertension, aortic ectasia, history of IL, anemia of chronic disease, secondary hyperparathyroidism, hyperlipidemia, history of acute pulm edema, history of recurrent pleural effusion s/p thoracocentesis and recurrent admissions for respiratory failure and pleural effusions comes in because of shortness and chest pain. Patient is on home oxygen at 1 L. Currently requiring 4 L. Feeling short of breath since last 2 to 3 days. Having cough. Denies any fevers. Last 2 days he is having chest pain middle of the chest mild in nature. Constant pain. No radiation. Denies any headache. No earache or runny nose or sore throat. No fevers. Appetite is down since yesterday. No nausea or vomiting. No abdominal pain. Normal bowel movement. Stools are always black because he takes iron pills as per patient. Does not make any urine. Ambulating okay. Lives with his . Medical noncompliance per history. Acute on chronic hypoxemic respiratory failure On home oxygen 1 L On admission requiring 4- 5L Acute on chronic systolic CHF Recurrent pleural effusions Recurrent pleural effusions Getting thoracocentesis by IR frequently Recurrent admissions Had thoracocentesis twice in July 2023 Last thoracocentesis on August 22 2023 700mL of fluid was taken out from left side Seems pleural effusion has recurred Consulted pulmonary for recurrent pulm effusions - Hypoxia secondary to volume overload and bilateral effusions. His left pleural effusion appears to be progressively loculated. His respiratory status did respond favorably to left thoracentesis and his x-ray appears to be improved. He will likely need thoracic surgery intervention to reopen the space if he continues to have loculations and paroxysmal bouts of dyspnea. No further input from pulmonary at this time. Consulted IR for thoracentesis - s/p left thoracentesis w/ 650 mL removed (08/28/23) Pt back to baseline O2 req. Pt to follow for pleural tap as prior schedule. Pt to f/u thoracic surgeon for eval, pt has been made aware. Acute on chronic systolic CHF Valvular heart disease Had HD on 08/28/23 and 08/30 while in the hospital Chest pain EKG no acute findings Troponin is 308. Has chronic elevation of troponin follow serial enzymes and obtained echo Keep him n.p.o. Cardiology consulted - 08/29/23 Clinically improved with left-sided thoracentesis and hemodialysis. Scheduled for additional hemodialysis treatment in a.m. 08/30/2023. Repeat x-ray tomorrow for reassessment of right-sided pleural effusi on. Blood pressure improved. Continue current meds including metoprolol succinate, losartan, hydralazine, amlodipine, Isordil, and atorvastatin. BP higher, hence added add metoprolol in the night per cardio recs. BP getting better. Hypertensive urgency Continue home medications of metoprolol succinate, hydralazine, losartan, amlodipine, Imdur Additional metoprolol succinate 50 mg HS added. Question of being on metoprolol succinate versus Coreg -> follow cardiology recs Cardio and nephro consulted close monitor End-stage renal disease On dialysis Nephrology consulted Leukocytosis Has cough, poss. pna Empiric Rocephin and Doxy - to po atb on dc to complete the course. procalcitonin 0.24 History of hyperkalemia On Veltassa Potassium 4.6 on admission History of large pericardial fusion in setting of acute renal failure resolved Atrial flutter in the above setting spontaneously resolved as per records Hyperlipidemia On statin Prediabetes Current HbA1c 5.6% Chronic anemia Hemoglobin 11.1 DVT prophylaxis Heparin subcu Disposition Telemetry floor Full code He is being discharged with following instruction at the point of discharge: Follow-up with your primary care physician within a week time and likely you will need labs CBC/CMP/magnesium/phosphorus. You were evaluated for recurrent pleural effusion, you underwent left pleural tap with improvement in your shortness of breath. You will likely need thoracic surgery evaluation due to progressive loculated effusion. Coordinate with your PCP office to set up the referral. Follow up with your cardiology in a month time. Because your blood pressure was elevated, additional dose of metoprolol succinate is added for the evening as well at 50 mg daily in the evening in addition to your daily 100 mg dose in the morning. Continue to follow with your PCP office for long-term monitoring/management of your blood pressure. Your chest x-ray showed 4 cm left midlung density which needs to be followed up in 4 to 6 weeks with repeat chest x-ray. Coordinate with your PCP office to set up the test. You will need repeat chest x-ray in a week time to follow-up on the pleural effusion. Coordinate with your PCP office to set up the test. Given leukocytosis and cough at presentation, you are being treated in the line of pneumonia. Continue antibiotic to complete the course. Take your medications as prescribed. Please make sure that you are able to get your medications today by calling your pharmacy before you leave the hospital so that your treatment continuity is not broken. Home Health Attestation I certify that this patient is under my care and that I, or a physicians assistant manager/embalmer working with me, had a face to-face encounter that meets the home health [id number] encounter requirements with this patient. The encounter with the patient was in whole, or in part, for the following medical condition, which is the primary reason for home health care (list medical condition): I certify that, based on my findings, the following services are medically necessary home health services: My clinical findings support the need for the above services because: Further, I certify that my clinical findings support that this patient is homebound (i.e. absences from home require considerable and taxing effort and are for medical reasons or tenriism services or infrequently or of short duration when for other reasons) because: Certification for Home Health Services: Based on the above findings, I certify that this patient is confined to the home and needs intermittent alf care, physical therapy and/or speech therapy or continues to need occupational therapy. The patient is under my care, and I have initiated the establishment of the plan of care. This patient will be followed by a physician who will periodically review the plan of care. Total Time Total Time Spent Total Time Spent (In Minutes): 45 Discharge Plan Discharge Items Patient Disposition: Home - Self-Care Reason For Visit: ACUTE CHRONIC RESP FAIL,PLEURAL EFFUSION,CHEST GORDON Discharge Diagnosis: Acute on chronic hypoxemic respiratory failure Acute on chronic systolic CHF Recurrent pleural effusion Activity: Resume your previous activity Non-emergency contact: Primary Care Provider Call non-emergency contact if: you have any medication questions, your symptoms worsen and your temperature is above 101.5 Follow-up/Referrals: Cisco Starkey MD [Primary Care Provider] - 09/05/23 11:20 am (Date & Time 09/05/2023 11:20 AM Provider Cisco Starkey MD Department [facility] ) Diet: Dialysis Renal and Heart Healthy Addtl Attending Provider Instructions: Follow-up with your primary care physician within a week time and likely you will need labs CBC/CMP/magnesium/phosphorus. You were evaluated for recurrent pleural effusion, you underwent left pleural tap with improvement in your shortness of breath. You will likely need thoracic surgery evaluation due to progressive loculated effusion. Coordinate with your PCP office to set up the referral. Follow up with your cardiology in a month time. Because your blood pressure was elevated, additional dose of metoprolol succinate is added for the evening as well at 50 mg daily in the evening in addition to your daily 100 mg dose in the morning. Continue to follow with your PCP office for long-term monitoring/management of your blood pressure. Your chest x-ray showed 4 cm left midlung density which needs to be followed up in 4 to 6 weeks with repeat chest x-ray. Coordinate with your PCP office to set up the test. You will need repeat chest x-ray in a week time to follow-up on the pleural effusion. Coordinate with your PCP office to set up the test. Given leukocytosis and cough at presentation, you are being treated in the line of pneumonia. Continue antibiotic to complete the course. Take your medications as prescribed. Please make sure that you are able to get your medications today by calling your pharmacy before you leave the hospital so that your treatment continuity is not broken. 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 * Use the same scale. * Wear the same amount of clothing. * Write your weight down on your chart. * Call your doctor if you gain more than 2-3 pounds in 1-2 days. MEDICATIONS * Use this discharge instruction sheet for instructions. * Take your medications at the time your doctor ordered. * Do not skip a dose of your medicines. * If you miss a dose of medicine, take as soon as possible, but DO NOT DOUBLE A DOSE. * Read your medicine information when you get home. * Know all of the side effects of your medicine. * Call your doctor's office if you have any side effects. * Be sure all of your doctors know what medicine and herbs you take (including cold, flu, and herbal medicine). * Pain Medicine: If you do not get relief from your pain, please call your doctor for help. Take the following with you to your follow-up doctor appointments: * Weight Chart * Medication List * List of questions Do not drink excessive alcohol, beer or wine. Pending Studies at Discharge: No Stand-Alone Forms: My [facility], Smoking Cessation Medications and DC Order Prescriptions: New doxycycline hyclate 100 mg Capsule 100 mg PO BID 4 Days Qty: 8 0RF metoprolol succinate 50 mg Tablet Extended Release 24 Hr 50 mg PO HS Qty: 30 0RF Probiotic 3 billion cell capsule 3,000 mmu cells PO DAILY 7 Days Qty: 7 0RF Rx Instructions: administer with a meal cefdinir 300 mg capsule 300 mg PO Q2D 4 Days Qty: 2 0RF Rx Instructions: take every 2 days after dialysis. Continued cinacalcet [Sensipar] 30 mg tablet 30 mg PO DAILY ergocalciferol (vitamin D2) [Vitamin D2] 1,250 mcg (50,000 unit) capsule 1,250 mcg PO WK amlodipine 10 mg tablet 10 mg PO DAILY losartan [Cozaar] 50 mg Tablet 50 mg PO AMHS Qty: 30 0RF hydralazine 100 mg tablet 100 mg PO TID Qty: 90 0RF atorvastatin 40 mg tablet 40 mg PO HS Qty: 30 0RF ondansetron HCl [Zofran] 4 mg Tablet 4 mg PO Q8H PRN (Reason: NAUSEA/VOMITING) calcitriol 0.25 mcg Capsule 0.25 mcg PO DIRECTED Liquacel Liquid 30 ea PO BID Rx Instructions: DOSE 30 ML BID guaifenesin [Mucinex] 600 mg Tablet Extended Release 12hr 600 mg PO BID PRN (Reason: Congestion) Veltassa 8.4 gram Powder In Packet 8.4 g PO QAM RenaPlex 800 mcg- 12.5 mg Tablet 1 tab PO DAILY Sodium Chloride Tab 250 mg PO Q OTHER DAY metoprolol succinate 50 mg tablet extended release 24 hr 100 mg PO QAM allopurinol 100 mg tablet 100 mg PO DAILY isosorbide dinitrate 20 mg tablet 20 mg PO TID Rx Instructions: QAM, 1200, & HS Discontinued carvedilol 12.5 mg Tablet 6.25 mg PO BID Rx Instructions: must administer with a meal/food Discharge Orders: Discharge Order- CHF (Routine); Ordered 08/31/23 Ordered By: Erick Schaeffer Admission Data Admit Date/Time: 08/28/23 04:16 Attending Provider: Erick Schaeffer Admit Provider: Mike Canales Primary Care Provider: Cisco Starkey Other Providers: Mike Canales; Gladis Wilkes; Nicholas Slater; Suhail Moore; Chet Bunch; Anthony Aquino; Cas Gipson; Ana Amaral; Loren Pinto; Gladis Mendez; Jann Urbano; Derek Perdue; Chiquita Salas; Brooke Goldsmith; Dragan Meng; Yvan Spence; Rita Munson; Ismael Pickering
[2023-08-31] MEDS ORDERED: DOXYCYCLINE HYCLATE 100 MG CAP PO SCH (21:00)
[2023-09-01] MEDS ORDERED: SODIUM CHLORIDE 0.9% 1,000 ML IV PRN (07:00)
[2023-09-01] MEDS ORDERED: EPOETIN ALFA 10,000 UNITS/ML VIAL IV ONE (07:00)
[2023-09-03] MEDS ORDERED: ERGOCALCIFEROL 1250 MCG (50,000 UNITS) CAP PO SCH (09:00)
== END 2023-08-31 13:49 | disposition home or self-care (01) | DRG 291 ==
LOC: ED 01:34 → SUATTDRO 04:16 → EDINP 04:16 → 1E 09:04 → 4W 18:35

== ENCOUNTER 2023-10-05 12:58 | Inpatient (IN) ==
--- NOTE | 2023-10-05 14:21 | Emergency Department Note ---
Impression & Plan CHF (congestive heart failure), Shortness of breath, Anemia, Pleural effusion ED Provider Note NAME: DIMAS ERVIN AGE: 67 SEX: M : 1955 ARRIVES VIA: Ambulance INFORMANT: Patient ED PROVIDER(S): Randall Cui DO CHIEF COMPLAINT: shortness of breath HPI: Patient is a 67-year-old male with a past medical history of end-stage renal disease on dialysis, CHF, noncompliance, on intermittent 1 L who presents to the ER for shortness of breath. He notes his shortness of breath started about 3 days ago and has been getting worse. He admits to cough, congestion and a runny nose throughout this time. He notes this he does speak prefers to use his own circulator. He denies any belly pain, nausea, vomiting, or diarrhea. ADDITIONAL HISTORY OBTAINED: Per HPI Chronic Medical/Social Conditions Affecting Care: Per HPI PAST MEDICAL HISTORY:See Below PAST SURGICAL HISTORY:See Below FAMILY HISTORY:See Below SOCIAL HISTORY:See Below HOME MEDICATIONS:See Below ALLERGIES:See Below VITALS:See Below PHYSICAL EXAMINATION: GENERAL: Sitting up in bed, alert, well appearing, well nourished, no distress, non-toxic EYE EXAM: normal conjunctiva. OROPHARYNX: no exudate, no erythema, lips, buccal mucosa, and tongue normal and mucous membranes are moist NECK: supple, no nuchal rigidity, no adenopathy, non-tender LUNGS: Clear to auscultation. Normal chest wall mechanics HEART: no murmurs, S1 normal and S2 normal ABDOMEN: abdomen soft, non-tender, normo-active bowel sounds, no masses, no rebound or guarding. UPPER EXTREMITIES: upper extremities are grossly normal. LOWER EXTREMITIES: No pitting edema. NEURO EXAM: Normal sensorium, cranial nerves II-XII grossly intact, normal speech, no gross weakness of arms, no gross weakness of legs. MEDICAL DECISION MAKING: Patient is a 67-year-old male who presents ER for above-stated complaint. IV was established blood work was obtained. Labs show no significant leukocytosis. Mild anemia at 9.9 which is actually consistent with previous. BMP with a creatinine of 11. LFTs and bilirubin was unremarkable. Troponin was elevated at 200. Lipase was normal. Viral panel was negative. Chest x-ray with pleural effusions. Chest x-ray with pleural effusions. Patient was updated bedside and discussed with the hospitalist for further evaluation as he remained on increased oxygen requirements. Do favor the elevated troponin is secondary to CKD on dialysis. Last course dialysis was yesterday. Consults/Care Managements Discussions: Per [facility] Triage Nursing notes reviewed. Limited review of prior medical records performed Vital Signs: reviewed and remarkable for HTN and hypoxia Differential diagnosis: Differential diagnoses includes but is not limited to pneumonia, bronchitis, COPD/Asthma exacerbation, pneumothorax, pulmonary embolism, congestive heart failure, acute coronary syndrome ER treatment provided: See below Diagnostics interpreted by me include EKG and cardiac monitoring as listed below: -Cardiac Monitoring: An order was placed for continuous cardiac monitoring. The monitor shows a rate of 95 with sinus rhythm. -ECG: Sinus rhythm rate 95 Normal axis No PVCs Septal Q waves with ST depressions in the lateral leads -Laboratory studies:Interpreted by me as stated above in MDM and shown below. Imaging studies: Xrays: As interpreted by me: Portable AP upright 1 view of the chest shows bilateral pleural effusions CTs show: none Procedures:none Critical Care: None Past Med/Surg History Medical History Palliative care encounter Recurrent pleural effusion Chest pain Acute respiratory failure with hypoxia Hypoxia Hypervolemia SOB (shortness of breath) Heart failure with acute decompensation, type unknown Acute hypoxemic respiratory failure Anemia of chronic disease Fluid overload Pleural effusion chronic, recurrent Hyperkalemia Symptomatic anemia Anemia Acute upper gastrointestinal bleeding ESRD (end stage renal disease) on dialysis HD patient follows w/ Dr Munson [facility] 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 AV fistula Kidney transplant candidate reason for colonoscopy to get on list Hypertension Restless leg syndrome Nephrolithiasis Benign prostatic hyperplasia with urinary obstruction Surgical History History of colonoscopy H/O inguinal hernia repair History of cystoscopy Status post creation of arteriovenous fistula left arm History of tooth extraction History of thoracentesis Family History Other No family history of adverse response to anesthesia No significant family history Social History Smoking Status: Never smoker Tobacco Type: Cigarettes Second Hand Exposure: No; Do You Dip or Chew Tobacco: No; Hx Alcohol Use: Yes Hx Substance Use: No Preferred Language: Lithuanian Communication Ability: Effective Communication Ability Comment: pt using cell phone to translate Communication Tools: Other Sales Order Clerk Required: No Beliefs That Will Affect Care: None marital status: Current Living Situation: Family current occupational status: employed Feels Safe at Home: Yes Assistive Devices: Oxygen - Continuous Allergies Allergies Allergy/AdvReac Type Severity Reaction Status Date / Time No Known Allergies Allergy Verified 10/05/23 17:51 Home Meds Home Medications Medication Instructions Recorded Confirmed ergocalciferol (vitamin D2) 1,250 1,250 mcg PO WK 04/15/23 10/05/23 mcg (50,000 unit) capsule (Vitamin D2) amlodipine 10 mg tablet 10 mg PO DAILY 06/12/23 10/05/23 Sodium Chloride Tab 250 mg PO Q OTHER DAY 08/28/23 10/05/23 allopurinol 100 mg tablet 100 mg PO DAILY 08/28/23 10/05/23 guaifenesin 600 mg tablet, 600 mg PO BID PRN Congestion 08/28/23 10/05/23 extended release 12 hr (Mucinex) isosorbide dinitrate 20 mg tablet 20 mg PO TID 08/28/23 10/05/23 ondansetron HCl 4 mg tablet 4 mg PO Q8H PRN NAUSEA/VOMITING 08/28/23 10/05/23 patiromer calcium sorbitex 8.4 8.4 g PO Q OTHER DAY 08/28/23 10/05/23 gram oral powder packet (Veltassa) protein supplement 30 ea PO BID 08/28/23 10/05/23 vitamin B complex with vit C-folic 1 tab PO DAILY 08/28/23 10/05/23 acid 800 mcg-zinc 12.5 mg tablet (RenaPlex) amino acid-protein hyd 16 gram-100 30 ml PO DIRECTED 10/05/23 10/05/23 kcal/30 mL oral liq meter-dose pump (Liquacel) ferric citrate 210 mg iron tablet 420 mg PO TIDWMEAL 10/05/23 10/05/23 (Auryxia) Previous Rx's Medication Instructions Recorded atorvastatin 40 mg tablet 40 mg PO HS #30 tabs 03/28/23 hydralazine 100 mg tablet 100 mg PO TID #90 tabs 03/28/23 losartan 50 mg tablet (Cozaar) 50 mg PO AMHS #30 tabs 03/28/23 metoprolol succinate 50 mg 50 mg PO HS #30 tabs 08/31/23 tablet,extended release 24 hr Results & Data (ED) Vital Signs Vital Signs - 24 hr 10/05/23 13:09 10/05/23 13:09 10/05/23 13:20 Temperature 37.3 C Temperature Source Oral Pulse Rate 89 Pulse Rate from SpO2 Sensor Pulse Rhythm Regular Pulse Strength Normal Respiratory Rate 24 Respiratory Effort / Characteristics Non-Labored Non-Labored Respiratory Depth Normal Normal Respiratory Pattern Regular Regular Blood Pressure 177/119 H Blood Pressure Mean 138 Blood Pressure Position Sitting Pulse Oximetry 98 87 L Oxygen Delivery Method Room Air Room Air Oxygen Flow Rate Sepsis Recent Fever Within 48 Hours No Sepsis New/Unexplained Change in Mental Status No Sepsis Action Taken by Nursing No Action Required Oxygen Flow Rate - Titration 2 Pulse Oximetry Post Tiitration 92 10/05/23 13:27 10/05/23 13:29 10/05/23 14:00 Temperature Temperature Source Pulse Rate 85 96 H 82 Pulse Rate from SpO2 Sensor 91 H 79 Pulse Rhythm Pulse Strength Respiratory Rate 24 20 Respiratory Effort / Characteristics Respiratory Depth Respiratory Pattern Blood Pressure Blood Pressure Mean Blood Pressure Position Pulse Oximetry 94 Oxygen Delivery Method Nasal Cannula Oxygen Flow Rate 2 Sepsis Recent Fever Within 48 Hours Sepsis New/Unexplained Change in Mental Status Sepsis Action Taken by Nursing Oxygen Flow Rate - Titration Pulse Oximetry Post Tiitration 10/05/23 14:10 10/05/23 14:30 10/05/23 15:00 Temperature Temperature Source Pulse Rate 89 85 104 H Pulse Rate from SpO2 Sensor 86 95 H Pulse Rhythm Pulse Strength Respiratory Rate 21 18 32 H Respiratory Effort / Characteristics Respiratory Depth Respiratory Pattern Blood Pressure 168/115 H Blood Pressure Mean 132 Blood Pressure Position Pulse Oximetry 94 98 97 Oxygen Delivery Method Nasal Cannula Nasal Cannula Oxygen Flow Rate 2 2 Sepsis Recent Fever Within 48 Hours Sepsis New/Unexplained Change in Mental Status Sepsis Action Taken by Nursing Oxygen Flow Rate - Titration Pulse Oximetry Post Tiitration 10/05/23 15:01 10/05/23 15:01 10/05/23 15:30 Temperature Temperature Source Pulse Rate 88 91 H Pulse Rate from SpO2 Sensor 84 Pulse Rhythm Pulse Strength Respiratory Rate 25 H 30 H Respiratory Effort / Characteristics Respiratory Depth Respiratory Pattern Blood Pressure 201/103 H Blood Pressure Mean 119 Blood Pressure Position Pulse Oximetry 93 Oxygen Delivery Method Oxygen Flow Rate Sepsis Recent Fever Within 48 Hours Sepsis New/Unexplained Change in Mental Status Sepsis Action Taken by Nursing Oxygen Flow Rate - Titration Pulse Oximetry Post Tiitration 10/05/23 15:31 10/05/23 15:31 10/05/23 16:00 Temperature Temperature Source Pulse Rate 94 H 81 Pulse Rate from SpO2 Sensor Pulse Rhythm Pulse Strength Respiratory Rate 35 H 21 Respiratory Effort / Characteristics Respiratory Depth Respiratory Pattern Blood Pressure 191/112 H Blood Pressure Mean 171 Blood Pressure Position Pulse Oximetry Oxygen Delivery Method Oxygen Flow Rate Sepsis Recent Fever Within 48 Hours Sepsis New/Unexplained Change in Mental Status Sepsis Action Taken by Nursing Oxygen Flow Rate - Titration Pulse Oximetry Post Tiitration 10/05/23 16:01 10/05/23 16:01 10/05/23 16:30 Temperature Temperature Source Pulse Rate 86 89 Pulse Rate from SpO2 Sensor Pulse Rhythm Pulse Strength Respiratory Rate 21 34 H Respiratory Effort / Characteristics Respiratory Depth Respiratory Pattern Blood Pressure 170/106 H Blood Pressure Mean 133 Blood Pressure Position Pulse Oximetry Oxygen Delivery Method Oxygen Flow Rate Sepsis Recent Fever Within 48 Hours Sepsis New/Unexplained Change in Mental Status Sepsis Action Taken by Nursing Oxygen Flow Rate - Titration Pulse Oximetry Post Tiitration 10/05/23 16:31 10/05/23 16:31 10/05/23 17:00 Temperature Temperature Source Pulse Rate 97 H 84 Pulse Rate from SpO2 Sensor Pulse Rhythm Pulse Strength Respiratory Rate 30 H 24 Respiratory Effort / Characteristics Respiratory Depth Respiratory Pattern Blood Pressure 175/116 H Blood Pressure Mean 138 Blood Pressure Position Pulse Oximetry Oxygen Delivery Method Oxygen Flow Rate Sepsis Recent Fever Within 48 Hours Sepsis New/Unexplained Change in Mental Status Sepsis Action Taken by Nursing Oxygen Flow Rate - Titration Pulse Oximetry Post Tiitration 10/05/23 17:00 10/05/23 17:30 Temperature Temperature Source Pulse Rate 84 Pulse Rate from SpO2 Sensor Pulse Rhythm Pulse Strength Respiratory Rate 22 Respiratory Effort / Characteristics Respiratory Depth Respiratory Pattern Blood Pressure 178/111 H Blood Pressure Mean 165 Blood Pressure Position Pulse Oximetry Oxygen Delivery Method Oxygen Flow Rate Sepsis Recent Fever Within 48 Hours Sepsis New/Unexplained Change in Mental Status Sepsis Action Taken by Nursing Oxygen Flow Rate - Titration Pulse Oximetry Post Tiitration Laboratory Data 10/05/23 14:45 10/05/23 14:45 Lab Results 10/05/23 Range/Units 14:45 WBC 9.13 (4.8-10.8) K/ul RBC 3.53 L (4.70-6.10) M/uL Hgb 9.9 L (14.0-18.0) g/dl Hct 31.7 L (42.0-52.0) % MCV 89.8 (80.0-100.0) fL MCH 28.0 (25.0-34.0) pg MCHC 31.2 L (32.0-36.0) g/dL RDW Std Deviation 54.5 H (36.4-46.3) fL RDW Coeff of Diamond 16.6 H (11.5-14.5) % Plt Count 275 (130-400) K/uL MPV 11.3 (9.4-12.4) fL Immature Gran % (Auto) 0.4 % Neut % (Auto) 66.3 % Lymph % (Auto) 9.1 % [place] % (Auto) 12.4 % Eos % (Auto) 11.1 % Baso % (Auto) 0.7 % Neut # (Auto) 6.06 (1.40-6.50) K/uL Lymph # (Auto) 0.83 L (1.20-3.40) K/uL [place] # (Auto) 1.13 H (0.11-0.59) K/uL Eos # (Auto) 1.01 H (0.00-0.50) K/uL Baso # (Auto) 0.06 (0.00-0.20) K/uL Immature Gran # (Auto) 0.04 (0.01-0.20) K/uL Sodium 142 (136-145) mmol/L Potassium 4.5 (3.5-5.1) mmol/L Chloride 101 (98-107) mmol/L Carbon Dioxide 26 (21-32) mmol/L Anion Gap 15 H (3-11) BUN 66 H (6-23) mg/dl Creatinine 11.12 H* (0.6-1.4) mg/dl Est Cr Clr Drug Dosing Not Reportable Est GFR ( Amer) 4.9 ml/min Est GFR (Non-Af Amer) 4.2 ml/min BUN/Creatinine Ratio 5.9 L (10-20) Glucose 89 (70-99(Fasting)) mg/dl Calcium 9.4 (8.6-10.3) mg/dl Total Bilirubin 0.4 (0.2-1.0) mg/dl AST 14 (13-39) U/L ALT 10 (7-52) U/L Alkaline Phosphatase 94 (34-104) U/L Troponin I High Sens 203.6 H* (0-20) pg/ml Total Protein 6.1 (6.0-8.3) gm/dl Albumin 3.5 (3.4-5.0) gm/dl Globulin 2.6 (2.5-4.0) gm/dl Albumin/Globulin Ratio 1.3 (0.9-2) Lipase 10 L (11-82) U/L Administered Medications Nitroglycerin (Nitroglycerin 2% Ointment 30gm Tube) 2 inch EXT Q6H MYLES Stop: 11/04/23 15:14 Last Admin: 10/05/23 15:19 Dose: 2 inch Documented By: BMK Imaging Data Radiologist's Impression: Chest X-Ray 10/05/23 14:07 XR chest 1V portable HISTORY: Shortness of breath. COMPARISON: Chest 09/14/2023. FINDINGS: No pneumothorax. The heart remains enlarged. Small right and moderate left pleural effusions persist. The 3.5 cm rounded density within the left lung base is again noted. There is mild central pulmonary vascular congestion without overt edema. No acute fractures. Bibasilar densities persist. IMPRESSION: 1. Cardiomegaly and mild congestive change again noted. 2. Small right and moderate left pleural effusions persist. 3. Stable 3.5 cm round density within the left lung base. 4. Patchy bibasilar densities again noted. This may represent atelectasis from the pleural effusions or a pneumonia. ACT 112: Negative or not required by law. Electronically signed by: Eddy Jacobsen M.D. 10/05/2023 4:02 PM Discharge Plan Visit Data Chief Complaint: Shortness of Breath/Dyspnea ED Provider: Randall Cui Discharge Problem: CHF (congestive heart failure), Shortness of breath, Anemia, Pleural effusion Discharge Problem: CHF (congestive heart failure) Qualifiers: Heart failure type: unspecified Heart failure chronicity: unspecified Qualified Code(s): I50.9 - Heart failure, unspecified Anemia Qualifiers: Anemia type: unspecified type Qualified Code(s): D64.9 - Anemia, unspecified
[2023-10-05 15:12] LABS: Basophils # (auto) 0.06 K/uL (0.00-0.20); Basophils % (auto) 0.7 %; Eosinophils # (auto) 1.01 K/uL (0.00-0.50); Eosinophils % (auto) 11.1 %; Hematocrit (blood only) 31.7 % (42.0-52.0); Hemoglobin 9.9 g/dl (14.0-18.0); Immature Granulocytes # (auto) 0.04 K/uL (0.01-0.20); Immature Granulocytes % (auto) 0.4 %; Lymphocytes # (auto) 0.83 K/uL (1.20-3.40); Lymphocytes % (auto) 9.1 %; Mean Corpuscular Hgb Conc 31.2 g/dL (32.0-36.0); Mean Corpuscular Volume 89.8 fL (80.0-100.0); Mean Platelet Volume 11.3 fL (9.4-12.4); Monocytes # (auto) 1.13 K/uL (0.11-0.59); Monocytes % (auto) 12.4 %; Neutrophils # (auto) 6.06 K/uL (1.40-6.50); Neutrophils % (auto) 66.3 %; Platelet Count 275 K/uL (130-400); RDW Coefficient of Variation 16.6 % (11.5-14.5); RDW Standard Deviation 54.5 fL (36.4-46.3); Red Blood Count 3.53 M/uL (4.70-6.10); White Blood Count 9.13 K/ul (4.8-10.8)
[2023-10-05] MEDS: NITROGLYCERIN 2% OINTMENT 30GM TUBE EXT SCH (15:19)
[2023-10-05 15:35] LABS: Albumin Level 3.5 gm/dl (3.4-5.0); Anion Gap 15 (3-11); Bilirubin,Total 0.4 mg/dl (0.2-1.0); Calcium 9.4 mg/dl (8.6-10.3); Carbon Dioxide 26 mmol/L (21-32); Chloride 101 mmol/L (98-107); Potassium 4.5 mmol/L (3.5-5.1); Sodium 142 mmol/L (136-145)
[2023-10-05 15:45] LABS: Alanine Aminotransferase 10 U/L (7-52); Albumin Globulin Ratio 1.3 (0.9-2); Alkaline Phosphatase 94 U/L (34-104); Aspartate Aminotransferase 14 U/L (13-39); BUN Creatinine Ratio 5.9 (10-20); Blood Urea Nitrogen 66 mg/dl (6-23); Est GFR (African American) 4.9 ml/min; Est GFR (Non-African American) 4.2 ml/min; Globulin 2.6 gm/dl (2.5-4.0); Glucose 89 mg/dl (70-99(Fasting)); Lipase 10 U/L (11-82); Total Protein 6.1 gm/dl (6.0-8.3); Troponin I High Sensitivity 203.6 pg/ml (0-20)
--- NOTE | 2023-10-05 16:03 | XRay Report ---
XR chest 1V portable HISTORY: Shortness of breath. COMPARISON: Chest 09/14/2023. FINDINGS: No pneumothorax. The heart remains enlarged. Small right and moderate left pleural effusion s persist. The 3.5 cm rounded density within the left lung base is again noted. There is mild central pulmonary vascular congestion without overt edema. No acute fractures. Bibasilar densities persist. IMPRESSION: 1. Cardiomegaly and mild congestive change again noted. 2. Small right and moderate left pleural effusions persist. 3. Stable 3.5 cm round density within the left lung base. 4. Patchy bibasilar densities again noted. This may represent atelectasis from the pleural effusions or a pneumonia. ACT 112: Negative or not required by law. Electronically signed by: Eddy Jacobsen M.D. 10/05/2023 4:02 PM
--- NOTE | 2023-10-05 17:34 | History & Physical Report ---
Date of Service October 05, 2023 Assessment & Plan (1) Shortness of breath: (2) Acute hypoxemic respiratory failure: (3) Recurrent pleural effusion: Plan: 67-year-old Afghan male with past medical history of end-stage renal disease on hemodialysis, chronic systolic heart failure, recurrent pleural effusion presented to the ED with worsening shortness of breath. On home oxygen at 1 L nasal cannula Procalcitonin elevated WBC within normal limits Chest x-ray on admission showed cardiomegaly and mild congestive changes. Small right and moderate left pleural effusion persist Last thoracentesis on 08/28/23 were 650 mL fluid removed He was seen by pulm that recommended thoracic surgery evaluation due to progressive loculated effusion. Continue Nitropaste and oxygen supplement Will add nebulizer treatment, incentive spirometry and flutter valve Case discussed with nephrology plan to dialyze tomorrow if no improvement after HD, will consider to eval for thoracentesis Will consult pulm Will check bio fire panel and sputum cx Will start on antibiotic with Rocephin and Doxy since procalcitonin elevated Acute on chronic systolic CHF Valvular heart disease Will dialyze tomorrow Elevated troponin Mostly due to end-stage renal disease and respiratory failure due to pleural effusion Troponin on admission 203 [address]KG showed no acute ST changes Will trend troponin End-stage renal disease Creatinine 11.1 and potassium 4.5 Scheduled for hemodialysis tomorrow Continue monitor electrolyte Nephrology consulted Chronic anemia Hemoglobin 9.9 Continue monitor H&H Hypertension Continue home medications of metoprolol succinate, hydralazine, losartan, amlodipine, Imdur Continue monitor BP closely DVT prophylaxis Heparin subcu CODE STATUS full code History of Present Illness Chief Complaint: Shortness of breath Primary Care Provider: Cisco Starkey MD 67 years old male Afghan speaking with past medical history of end-stage renal disease on hemodialysis, hypertension, chronic systolic CHF, paroxysmal atrial flutter, valvular heart disorder, p-ANCA vasculitis, history of AL, anemia of chronic disease, secondary hyperparathyroidism, history of pulmonary edema, recurrent pleural effusion status post thoracentesis which required hospital admission for respiratory failure presented to the ED for worsening shortness of breath. Patient was recently discharged last month for pleural effusion where he underwent thoracentesis. He said after discharge he was able to move around on and kept tract of his daily steps. Patient said in the last 3 days he has been having shortness of breath with exertion. He said that he feels weak. Today his breathing got worse. He has been having greenish productive cough and unable to bring the phlegm up. Patient is on home oxygen with 1 L, currently is on 2 L oxygen with nasal cannula. Patient said he has his last hemodialysis was yesterday and he is scheduled to dialyze tomorrow. Denies any fever, chills, palpitation, dizziness, sore throat, runny nose. Allergies Allergy/AdvReac Type Severity Reaction Status Date / Time No Known Allergies Allergy Verified 10/05/23 17:51 Home Medications Medication Instructions Recorded Confirmed Type atorvastatin 40 mg tablet 40 mg PO HS #30 tabs 03/28/23 10/05/23 Rx hydralazine 100 mg tablet 100 mg PO TID #90 tabs 03/28/23 10/05/23 Rx losartan 50 mg tablet (Cozaar) 50 mg PO AMHS #30 tabs 03/28/23 10/05/23 Rx ergocalciferol (vitamin D2) 1,250 1,250 mcg PO WK 04/15/23 10/05/23 History mcg (50,000 unit) capsule (Vitamin D2) amlodipine 10 mg tablet 10 mg PO DAILY 06/12/23 10/05/23 History Sodium Chloride Tab 250 mg PO Q OTHER DAY 08/28/23 10/05/23 History allopurinol 100 mg tablet 100 mg PO DAILY 08/28/23 10/05/23 History guaifenesin 600 mg tablet, 600 mg PO BID PRN Congestion 08/28/23 10/05/23 History extended release 12 hr (Mucinex) isosorbide dinitrate 20 mg tablet 20 mg PO TID 08/28/23 10/05/23 History ondansetron HCl 4 mg tablet 4 mg PO Q8H PRN NAUSEA/VOMITING 08/28/23 10/05/23 History patiromer calcium sorbitex 8.4 8.4 g PO Q OTHER DAY 08/28/23 10/05/23 History gram oral powder packet (Veltassa) protein supplement 30 ea PO BID 08/28/23 10/05/23 History vitamin B complex with vit C-folic 1 tab PO DAILY 08/28/23 10/05/23 History acid 800 mcg-zinc 12.5 mg tablet (RenaPlex) metoprolol succinate 50 mg 50 mg PO HS #30 tabs 08/31/23 10/05/23 Rx tablet,extended release 24 hr amino acid-protein hyd 16 gram-100 30 ml PO DIRECTED 10/05/23 10/05/23 History kcal/30 mL oral liq meter-dose pump (Liquacel) ferric citrate 210 mg iron tablet 420 mg PO TIDWMEAL 10/05/23 10/05/23 History (Auryxia) Past Med/Surg History Medical History Palliative care encounter Recurrent pleural effusion Chest pain Acute respiratory failure with hypoxia Hypoxia Hypervolemia SOB (shortness of breath) Heart failure with acute decompensation, type unknown Acute hypoxemic respiratory failure Anemia of chronic disease Fluid overload Pleural effusion chronic, recurrent Hyperkalemia Symptomatic anemia Anemia Acute upper gastrointestinal bleeding ESRD (end stage renal disease) on dialysis HD patient follows w/ Dr Munson [facility] 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 AV fistula Kidney transplant candidate reason for colonoscopy to get on list Hypertension Restless leg syndrome Nephrolithiasis Benign prostatic hyperplasia with urinary obstruction Surgical History History of colonoscopy H/O inguinal hernia repair History of cystoscopy Status post creation of arteriovenous fistula left arm History of tooth extraction History of thoracentesis Family History Other No family history of adverse response to anesthesia No significant family history Social History Smoking Status: Never smoker Tobacco Type: Cigarettes Second Hand Exposure: No; Do You Dip or Chew Tobacco: No; Hx Alcohol Use: No Hx Substance Use: No Preferred Language: Afghan Communication Ability: Effective Communication Ability Comment: pt using cell phone to translate Communication Tools: IPad and Language Line Stencil Cutter Machine Stencil Cutter Machine Required: Yes, Video and Voice Beliefs That Will Affect Care: None marital status: Current Living Situation: Spouse current occupational status: employed Feels Safe at Home: Yes Safety Concerns: Feels Safe At This Time Assistive Devices: Oxygen - Continuous Review of Systems Review of Systems: All systems reviewed & are unremarkable except as noted in HPI & below Physical Exam Physical Exam: General- No acute distress Head- atraumatic Eyes- PERRL, EOMI, ENT- oropharynx clear Neck- supple, no JVD Lungs- +crackles Heart- regular rhythm; +murmur Abdomen- normal bowel sounds, soft, nontender Extremities- no calf tenderness Neuro- alert, oriented x 3; PERRL, EOMI; no facial palsy; no dysarthria Skin- warm & dry Results & Data Results & Data Vital Signs (Past 12 Hours) Vital Signs Temp Pulse Resp BP Pulse Ox O2 Del Method O2 Flow Rate 10/05/23 17:34 87 10/05/23 16:31 175/116 H 10/05/23 16:31 97 H 30 H 10/05/23 16:30 89 34 H 10/05/23 16:01 170/106 H 10/05/23 16:01 86 21 10/05/23 16:00 81 21 10/05/23 15:31 94 H 35 H 10/05/23 15:31 191/112 H 10/05/23 15:30 91 H 30 H 10/05/23 15:01 201/103 H 10/05/23 15:01 88 25 H 93 10/05/23 15:00 104 H 32 H 97 10/05/23 14:30 85 18 168/115 H 98 Nasal Cannula 2 10/05/23 14:10 89 21 94 Nasal Cannula 2 10/05/23 14:00 82 20 10/05/23 13:29 96 H 10/05/23 13:27 85 24 94 Nasal Cannula 2 10/05/23 13:20 87 L Room Air 10/05/23 13:09 37.3 C 89 24 177/119 H 98 Room Air Diagnostic Findings Laboratory Results WBC 9.13 K/ul (4.8-10.8) 10/05/23 14:45 RBC 3.53 M/uL (4.70-6.10) L 10/05/23 14:45 Hgb 9.9 g/dl (14.0-18.0) L 10/05/23 14:45 Hct 31.7 % (42.0-52.0) L 10/05/23 14:45 MCV 89.8 fL (80.0-100.0) 10/05/23 14:45 MCH 28.0 pg (25.0-34.0) 10/05/23 14:45 MCHC 31.2 g/dL (32.0-36.0) L 10/05/23 14:45 RDW Std Deviation 54.5 fL (36.4-46.3) H 10/05/23 14:45 RDW Coeff of Diamond 16.6 % (11.5-14.5) H 10/05/23 14:45 Plt Count 275 K/uL (130-400) 10/05/23 14:45 MPV 11.3 fL (9.4-12.4) 10/05/23 14:45 Immature Gran % (Auto) 0.4 % 10/05/23 14:45 Neut % (Auto) 66.3 % 10/05/23 14:45 Lymph % (Auto) 9.1 % 10/05/23 14:45 Cobb % (Auto) 12.4 % 10/05/23 14:45 Eos % (Auto) 11.1 % 10/05/23 14:45 Baso % (Auto) 0.7 % 10/05/23 14:45 Neut # (Auto) 6.06 K/uL (1.40-6.50) 10/05/23 14:45 Lymph # (Auto) 0.83 K/uL (1.20-3.40) L 10/05/23 14:45 Cobb # (Auto) 1.13 K/uL (0.11-0.59) H 10/05/23 14:45 Eos # (Auto) 1.01 K/uL (0.00-0.50) H 10/05/23 14:45 Baso # (Auto) 0.06 K/uL (0.00-0.20) 10/05/23 14:45 Immature Gran # (Auto) 0.04 K/uL (0.01-0.20) 10/05/23 14:45 Sodium 142 mmol/L (136-145) 10/05/23 14:45 Potassium 4.5 mmol/L (3.5-5.1) 10/05/23 14:45 Chloride 101 mmol/L (98-107) 10/05/23 14:45 Carbon Dioxide 26 mmol/L (21-32) 10/05/23 14:45 Anion Gap 15 (3-11) H 10/05/23 14:45 BUN 66 mg/dl (6-23) H 10/05/23 14:45 Creatinine 11.12 mg/dl (0.6-1.4) H* 10/05/23 14:45 Est Cr Clr Drug Dosing Not Reportable 10/05/23 14:45 Est GFR ( Amer) 4.9 ml/min 10/05/23 14:45 Est GFR (Non-Af Amer) 4.2 ml/min 10/05/23 14:45 BUN/Creatinine Ratio 5.9 (10-20) L 10/05/23 14:45 Glucose 89 mg/dl (70-99(Fasting)) 10/05/23 14:45 Calcium 9.4 mg/dl (8.6-10.3) 10/05/23 14:45 Total Bilirubin 0.4 mg/dl (0.2-1.0) 10/05/23 14:45 AST 14 U/L (13-39) 10/05/23 14:45 ALT 10 U/L (7-52) 10/05/23 14:45 Alkaline Phosphatase 94 U/L (34-104) 10/05/23 14:45 Troponin I High Sens 195.9 pg/ml (0-20) H* 10/05/23 17:39 Total Protein 6.1 gm/dl (6.0-8.3) 10/05/23 14:45 Albumin 3.5 gm/dl (3.4-5.0) 10/05/23 14:45 Globulin 2.6 gm/dl (2.5-4.0) 10/05/23 14:45 Albumin/Globulin Ratio 1.3 (0.9-2) 10/05/23 14:45 Lipase 10 U/L (11-82) L 10/05/23 14:45 Procalcitonin 2.17 ng/ml (0-0.5) H 10/05/23 14:45 Adenovirus (PCR) Not Detected (NotDetected) 10/05/23 18:29 B. pertussis DNA (PCR) Not Detected (NotDetected) 10/05/23 18:29 B.parapertussis DNA PCR Not Detected (NotDetected) 10/05/23 18:29 C. pneumoniae DNA (PCR) Not Detected (NotDetected) 10/05/23 18:29 Coronavirus OC43 (PCR) Not Detected (NotDetected) 10/05/23 18:29 Coronavirus HKU1 (PCR) Not Detected (NotDetected) 10/05/23 18:29 Coronavirus 229E (PCR) Not Detected (NotDetected) 10/05/23 18:29 SARS-CoV-2 (PCR) Not Detected (NotDetected) 10/05/23 18:29 Coronavirus NL63 (PCR) Not Detected (NotDetected) 10/05/23 18:29 Human Metapneumovir PCR Not Detected (NotDetected) 10/05/23 18:29 Influenza Type A (PCR) Not Detected (NotDetected) 10/05/23 18:29 Influenza Type B (PCR) Not Detected (NotDetected) 10/05/23 18:29 M. pneumoniae (PCR) Not Detected (NotDetected) 10/05/23 18:29 Parainfluenza 1 (PCR) Not Detected (NotDetected) 10/05/23 18:29 Parainfluenza 2 (PCR) Not Detected (NotDetected) 10/05/23 18:29 Parainfluenza 3 (PCR) Not Detected (NotDetected) 10/05/23 18:29 Parainfluenza 4 (PCR) Not Detected (NotDetected) 10/05/23 18:29 RSV (PCR) Not Detected (NotDetected) 10/05/23 18:29 Entero/Rhino (PCR) Not Detected (NotDetected) 10/05/23 18:29 Impressions Chest X-Ray 10/05/23 14:07 XR chest 1V portable HISTORY: Shortness of breath. COMPARISON: Chest 09/14/2023. FINDINGS: No pneumothorax. The heart remains enlarged. Small right and moderate left pleural effusions persist. The 3.5 cm rounded density within the left lung base is again noted. There is mild central pulmonary vascular congestion without overt edema. No acute fractures. Bibasilar densities persist. IMPRESSION: 1. Cardiomegaly and mild congestive change again noted. 2. Small right and moderate left pleural effusions persist. 3. Stable 3.5 cm round density within the left lung base. 4. Patchy bibasilar densities again noted. This may represent atelectasis from the pleural effusions or a pneumonia. ACT 112: Negative or not required by law. Electronically signed by: Eddy Jacobsen M.D. 10/05/2023 4:02 PM
[2023-10-05 19:39] LABS: Adenovirus PCR Not Detected (NotDetected); Bordetella parapertussis PCR Not Detected (NotDetected); Bordetella pertussis PCR Not Detected (NotDetected); Chlamydia pneumoniae PCR Not Detected (NotDetected); Coronavirus 229E PCR Not Detected (NotDetected); Coronavirus CoV-2 (COVID19)PCR Not Detected (NotDetected); Coronavirus HKU1 PCR Not Detected (NotDetected); Coronavirus NL63 PCR Not Detected (NotDetected); Coronavirus OC43PCR Not Detected (NotDetected); Human Metapneumovirus PCR Not Detected (NotDetected); Influenza A PCR Not Detected (NotDetected); Influenza B PCR Not Detected (NotDetected); Mycoplasma pneumoniae PCR Not Detected (NotDetected); Parainfluenza Virus 1 PCR Not Detected (NotDetected); Parainfluenza Virus 2 PCR Not Detected (NotDetected); Parainfluenza Virus 3 PCR Not Detected (NotDetected); Parainfluenza Virus 4 PCR Not Detected (NotDetected); Respiratory Syncytial VirusPCR Not Detected (NotDetected); Rhinovirus/Enterovirus PCR Not Detected (NotDetected)
[2023-10-05] MEDS: METOPROLOL SUCC 50MG EXT REL TAB PO STA (22:04)
[2023-10-05] MEDS: hydrALAZINE TAB 50 MG TAB PO STA (22:04)
[2023-10-05] MEDS: LOSARTAN POTASSIUM 50 MG TAB PO STA (22:04)
[2023-10-05] MEDS ORDERED: guaiFENesin 600 MG TABCR PO PRN (22:08)
[2023-10-05] MEDS ORDERED: ALBUT/IPRATROP 3MG/0.5MG NEB 3 ML VIAL NEB PRN (23:46)
[2023-10-06] MEDS: DOXYCYCLINE HYCLATE 100 MG CAP PO SCH (00:05)
[2023-10-06] MEDS: cefTRIAXone SODIUM 1,000 MG in DEXTROSE 5 % MINI-B 50 ML IV SCH (00:05)
[2023-10-06 07:41] LABS: Basophils # (auto) 0.04 K/uL (0.00-0.20); Basophils % (auto) 0.4 %; Eosinophils # (auto) 1.17 K/uL (0.00-0.50); Hematocrit (blood only) 29.6 % (42.0-52.0); Hemoglobin 9.1 g/dl (14.0-18.0); Immature Granulocytes # (auto) 0.03 K/uL (0.01-0.20); Immature Granulocytes % (auto) 0.3 %; Lymphocytes % (auto) 13.3 %; Mean Corpuscular Hemoglobin 27.7 pg (25.0-34.0); Mean Corpuscular Hgb Conc 30.7 g/dL (32.0-36.0); Mean Platelet Volume 11.1 fL (9.4-12.4); Monocytes # (auto) 1.17 K/uL (0.11-0.59); Neutrophils # (auto) 5.39 K/uL (1.40-6.50); Platelet Count 263 K/uL (130-400); RDW Coefficient of Variation 16.5 % (11.5-14.5); RDW Standard Deviation 54.7 fL (36.4-46.3); Red Blood Count 3.29 M/uL (4.70-6.10)
[2023-10-06 08:12] LABS: BUN Creatinine Ratio 6.1 (10-20); Calcium 9.6 mg/dl (8.6-10.3); Creatinine Clr Calc Pharmacy 5.5 ml/min; Est GFR (African American) 4.4 ml/min; Est GFR (Non-African American) 3.8 ml/min; Potassium 4.7 mmol/L (3.5-5.1)
[2023-10-06 08:15] LABS: Troponin I High Sensitivity 178.4 pg/ml (0-20)
--- NOTE | 2023-10-06 08:30 | Pulmonary Consultation ---
Date of Consultation October 06, 2023 Assessment & Plan (1) Shortness of breath: (2) Recurrent pleural effusion: (3) ESRD (end stage renal disease) on dialysis: (4) HFrEF (heart failure with reduced ejection fraction): (5) Hypoxia: Plan IMPRESSION: 67-year-old male with a significant past medical history of end- stage renal disease on hemodialysis Monday/Monday/Monday with associated heart failure with reduced ejection fraction who has been admitted on multiple occasions with recurrent pleural effusion in the setting of medical noncompliance with his hemodialysis as well as diet. Patient presents today with acute hypoxic respiratory failure in the setting of pleural effusions after skipping dialysis on Monday. RECOMMENDATIONS: 1. Recurrent pleural effusion - Patient has undergone extensive discussion as well as evaluation in the past including thoracic surgery evaluation, however this was early on during his initial presentations. Unfortunately, now the patient is noted to have loculations and has had decrease in his pleural fluid output with sequential thoracenteses. He is currently saturating on 2 L nasal cannula which is up from 1 L which is his baseline. We will perform bedside ultrasound today to evaluate the effusion and assess areas of loculation. If this does appear to be moderately loculated, the patient would likely benefit from thoracic surgery evaluation for VATS and possible pleurodesis. Alternatively, considerations for pigtail catheter placement with initiation of MIST2 protocol could be considered as well. Will discuss these options with him after bedside ultrasound. 2. End-stage renal disease on hemodialysis - Continue with dialysis as directed by nephrology. 3. Heart failure with reduced ejection fraction - As managed by cardiology/nephrology. 4. Hypoxia - Currently on 2 L which is up from his baseline 1 L at all times. Likely secondary to his effusions. 5. Shortness of breath - Improved. Likely secondary to #1. Thank you for allowing us to participate in the care of this patient. We will continue to follow along. Supervising Physician Co-Signing Physician Notes I saw and evaluated the patient with Kenan Colby PA-C, and agree with findings and plan as documented in the note. 67-year-old male presented to hospital complaints of shortness of breath Past medical history: End-stage renal disease on dialysis, systolic CHF, A-fl utter, hypertension, recurrent pleural effusion Pulmonary consulted for pleural effusion At the time of examination patient was getting dialyzed. Not in any respiratory distress He stated that he has been having issues with breathing for approximately 4-5 days. He has been waking up phlegm which is mostly clear. Occasional streaks of blood. He says he is compliant with his regimen of low-sodium diet as well as gets dialysis on a regular basis No fever or chills. No nausea or vomiting. No headache or blurry vision Constitutional: No acute distress HEENT: EOMI, PERRLA Respiratory system: Decreased air entry bilaterally, no wheeze, no rhonchi, positive crackles bilaterally CVS: S1-S2 positive, positive 3 out of 6 systolic murmur appreciated best at apex Abdomen: Soft, nontender, nondistended, positive bowel sounds x4 Extremities: +2 pulses bilaterally radialis/ dorsalis pedis, no cyanosis, minimal pitting edema bilateral lower extremity, left arm AVF Neuro: Awake alert oriented x3 Psych: Normal mood and affect G/U: No Fisher Plan: Patient had multiple thoracentesis in the past, cytology has been negative. Bedside ultrasound showed simple effusion on the right side with loculated effusion on the left Will perform thoracentesis later today on the right side. Risk and benefit of the procedure accepted the patient in depth. He understands and agrees to go ahead with the procedure. When it comes to the loculated effusion on the left. VATS would be preferred. I also gave the option if he is not willing to do labs then chest tube with mist protocol for which she will need to be in the hospital for at least 4 days. He is inclining towards VATS. Needs adequate dialysis and low sodium in the diet Please note the above document was generated using voice recognition software. It may contain grammatical, syntax or spelling errors.Any formal questions or concerns about the content, text or information contained within the body of this dictation should be directly addressed to the provider for clarification. History of Present Illness Reason for Consultation: Recurrent pleural effusion Requesting Physician: Dr. Garcia Attending Physician: Celestina Rush MD History of Present Illness Patient is a 67-year-old male with a significant past medical history of end- stage renal disease on hemodialysis, heart failure with reduced ejection fraction, paroxysmal a flutter, hypertension, hyperlipidemia, and recurrent pleural effusions with frequent hospitalizations related to recurrent pleural effusions with hypoxia and respiratory failure in the setting of medical noncompliance. Patient had previously been extensively evaluated. He has had multiple thoracentesis in the past. He had been undergoing serial thoracenteses when symptomatic. Unfortunately, most recent thoracentesis attempts have not noted fibrinous stranding and loculations. There is been a decrease in the amount of fluid removed. The patient received subjective improvement in his symptoms after thoracentesis. Upon evaluation in room 458, the patient is awake, alert, and oriented. He primarily utilizes his phone and translation device to medicate. He states that he is feeling somewhat better today. He has persistent shortness of breath. His symptoms feel relatively the same as prior visits. Allergies Allergy/AdvReac Type Severity Reaction Status Date / Time No Known Allergies Allergy Verified 10/05/23 17:51 Home Medications Medication Instructions Recorded Confirmed Type atorvastatin 40 mg tablet 40 mg PO HS #30 tabs 03/28/23 10/05/23 Rx hydralazine 100 mg tablet 100 mg PO TID #90 tabs 03/28/23 10/05/23 Rx losartan 50 mg tablet (Cozaar) 50 mg PO AMHS #30 tabs 03/28/23 10/05/23 Rx ergocalciferol (vitamin D2) 1,250 1,250 mcg PO WK 04/15/23 10/05/23 History mcg (50,000 unit) capsule (Vitamin D2) amlodipine 10 mg tablet 10 mg PO DAILY 06/12/23 10/05/23 History Sodium Chloride Tab 250 mg PO Q OTHER DAY 08/28/23 10/05/23 History allopurinol 100 mg tablet 100 mg PO DAILY 08/28/23 10/05/23 History guaifenesin 600 mg tablet, 600 mg PO BID PRN Congestion 08/28/23 10/05/23 History extended release 12 hr (Mucinex) isosorbide dinitrate 20 mg tablet 20 mg PO TID 08/28/23 10/05/23 History ondansetron HCl 4 mg tablet 4 mg PO Q8H PRN NAUSEA/VOMITING 08/28/23 10/05/23 History patiromer calcium sorbitex 8.4 8.4 g PO Q OTHER DAY 08/28/23 10/05/23 History gram oral powder packet (Veltassa) protein supplement 30 ea PO BID 08/28/23 10/05/23 History vitamin B complex with vit C-folic 1 tab PO DAILY 08/28/23 10/05/23 History acid 800 mcg-zinc 12.5 mg tablet (RenaPlex) metoprolol succinate 50 mg 50 mg PO HS #30 tabs 08/31/23 10/05/23 Rx tablet,extended release 24 hr amino acid-protein hyd 16 gram-100 30 ml PO DIRECTED 10/05/23 10/05/23 History kcal/30 mL oral liq meter-dose pump (Liquacel) ferric citrate 210 mg iron tablet 420 mg PO TIDWMEAL 10/05/23 10/05/23 History (Auryxia) Patient History Medical History Palliative care encounter Recurrent pleural effusion Chest pain Acute respiratory failure with hypoxia Hypoxia Hypervolemia SOB (shortness of breath) Heart failure with acute decompensation, type unknown Acute hypoxemic respiratory failure Anemia of chronic disease Fluid overload Pleural effusion chronic, recurrent Hyperkalemia Symptomatic anemia Anemia Acute upper gastrointestinal bleeding ESRD (end stage renal disease) on dialysis HD patient follows w/ Dr Munson [facility] 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 AV fistula Kidney transplant candidate reason for colonoscopy to get on list Hypertension Restless leg syndrome Nephrolithiasis Benign prostatic hyperplasia with urinary obstruction Surgical History History of colonoscopy H/O inguinal hernia repair History of cystoscopy Status post creation of arteriovenous fistula left arm History of tooth extraction History of thoracentesis Family History Other No family history of adverse response to anesthesia No significant family history Social History Smoking Status: Never smoker Tobacco Type: Cigarettes Second Hand Exposure: No; Do You Dip or Chew Tobacco: No; Hx Alcohol Use: No Hx Substance Use: No Preferred Language: Slovak Communication Ability: Effective Communication Ability Comment: pt using cell phone to translate Communication Tools: IPad and Language Line Digital Composer Digital Composer Required: Yes, Video and Voice Beliefs That Will Affect Care: None marital status: Current Living Situation: Spouse current occupational status: employed Feels Safe at Home: Yes Safety Concerns: Feels Safe At This Time Assistive Devices: Oxygen - Continuous Review of Systems Review of Systems: A complete 10 point review of systems was reviewed with the patient with pertinent positives and negatives as per history of present illness. All else were negative. Physical Exam Physical Exam: VITAL SIGNS - Vital signs and nursing notes were reviewed. GENERAL - 67-year-old male appearing his stated age who is in no acute distress. Communicates well with provider and answers questions appropriately. SKIN - Without rashes or lesions. NOSE - Midline and without cyanosis. MOUTH/OROPHARYNX - Without perioral cyanosis. NECK - Neck with FROM. LUNGS - Chest wall evaluation demonstrates normal chest wall A:P diameter. Auscultation reveals diminished breath sounds at the bases. CARDIAC - RRR with S1/S2. No murmur, rubs, or gallops appreciated. ABDOMEN - BS normoactive all four quadrants. No tenderness, palpable masses, or ascites noted. PSYCH - A&Ox3 and cooperates fully with examiner. Pt is very pleasant and interacts well with examiner. Results & Data Results & Data Vital Signs (Past 12 Hours) Vital Signs Temp Pulse Resp BP Pulse Ox O2 Del Method O2 Flow Rate 10/06/23 08:00 Nasal Cannula 2 10/06/23 03:28 36.9 C 90 16 155/88 H 94 Nasal Cannula 2.0 10/05/23 23:30 Nasal Cannula 2 10/05/23 23:02 36.8 C 93 H 20 162/84 H 90 Nasal Cannula 2.0 10/05/23 21:48 36.7 C 104 H 16 192/98 H 90 Nasal Cannula 2 10/05/23 20:34 37.1 C 81 20 195/62 H 96 Nasal Cannula 2 PG Care Time/CCT Total # of Minutes Spent Total Time Spent with Patient: Total time spent is greater than 50% in coordination of care (as documented) at patient's floor/unit and/or counseling patient: Coding Level of Care Code 80804 INT INP/OBS CARE 3/75MIN Diagnoses Shortness of breath R06.02 Recurrent pleural effusion J90 ESRD (end stage renal disease) on dialysis N18.6; Z99.2 HFrEF (heart failure with reduced ejection fraction) I50.20 Hypoxia R09.02
[2023-10-06] MEDS: ISOSORBIDE DINITRATE 20 MG TAB PO SCH (08:42)
[2023-10-06] MEDS: PROSOURCE NO CARB 30 ML/PKT PO SCH (08:42)
[2023-10-06] MEDS: hydrALAZINE TAB 50 MG TAB PO SCH (08:42)
[2023-10-06] MEDS: amLODIPine BESYLATE 5 MG TAB PO SCH (08:42)
[2023-10-06] MEDS: NEPHROCAPS PO SCH (08:42)
[2023-10-06] MEDS: LOSARTAN POTASSIUM 50 MG TAB PO SCH (08:42)
[2023-10-06] MEDS: allopurinoL 100 MG TAB PO SCH (08:43)
[2023-10-06] MEDS: SODIUM CHLORIDE 1 GM TABLET PO SCH (08:43)
[2023-10-06] MEDS ORDERED: EPOETIN ALFA 10,000 UNITS in SYRINGE 0 ML IV SCH (09:45)
[2023-10-06] MEDS ORDERED: HEPARIN SOD 5,000 UNIT/0.5 ML VIAL SQ SCH (10:00)
--- NOTE | 2023-10-06 10:47 | Nephrology Consultation ---
Date of Consultation October 06, 2023 Assessment & Plan (1) ESRD (end stage renal disease) on dialysis: Dialysis today as per Schedule. Will do 4hrs and take 3.5 kilo off. maximum he is allowing us to do. No Sig electrolyte issues today. he is anuric and does run high creat and K and has issues with Fluid overload making it challenging. BP and AVF is fine (2) Pleural effusion: (3) Recurrent pleural effusion: Ongoing issues. reviewed Pulmonary note and Plan of action. Also getting Abx. History of Present Illness Attending Physician: Celestina Rush MD History of Present Illness 67/M with ESRD on HD--[facility] with SOB, Coughand sputum yesterday. Has heart failure with reduced ejection fraction, paroxysmal a flutter, hypertension, hyperlipidemia, and recurrent pleural effusions with frequent hospitalizations related to recurrent pleural effusions with hypoxia and respiratory failure in the setting of medical noncompliance. He has had multiple thoracentesis in the past. He had been undergoing serial thoracenteses when symptomatic. The patient received subjective improvement in his symptoms after thoracentesis. Also getting Abx for elevated procalcitonin and Cough with Sputum getting Dialysis now. Says slightly better breathing today. No issues with Dialysis yet. ROS--12 Systems otherwise negative.+ for SOB and COugh with Sputum Physical Exam Physical Exam: General- No acute distress Head- atraumatic Eyes- PERRL, EOMI, ENT- oropharynx clear Neck- supple, no JVD Lungs- +crackles > in left Heart- regular rhythm; +murmur Abdomen- normal bowel sounds, soft, nontender Extremities- no calf tenderness Neuro- alert, oriented x 3; PERRL, EOMI; no facial palsy; no dysarthria Skin- warm & dry Allergies Allergy/AdvReac Type Severity Reaction Status Date / Time No Known Allergies Allergy Verified 10/05/23 17:51 Home Medications Medication Instructions Recorded Confirmed Type atorvastatin 40 mg tablet 40 mg PO HS #30 tabs 03/28/23 10/05/23 Rx hydralazine 100 mg tablet 100 mg PO TID #90 tabs 03/28/23 10/05/23 Rx losartan 50 mg tablet (Cozaar) 50 mg PO AMHS #30 tabs 03/28/23 10/05/23 Rx ergocalciferol (vitamin D2) 1,250 1,250 mcg PO WK 04/15/23 10/05/23 History mcg (50,000 unit) capsule (Vitamin D2) amlodipine 10 mg tablet 10 mg PO DAILY 06/12/23 10/05/23 History Sodium Chloride Tab 250 mg PO Q OTHER DAY 08/28/23 10/05/23 History allopurinol 100 mg tablet 100 mg PO DAILY 08/28/23 10/05/23 History guaifenesin 600 mg tablet, 600 mg PO BID PRN Congestion 08/28/23 10/05/23 History extended release 12 hr (Mucinex) isosorbide dinitrate 20 mg tablet 20 mg PO TID 08/28/23 10/05/23 History ondansetron HCl 4 mg tablet 4 mg PO Q8H PRN NAUSEA/VOMITING 08/28/23 10/05/23 History patiromer calcium sorbitex 8.4 8.4 g PO Q OTHER DAY 08/28/23 10/05/23 History gram oral powder packet (Veltassa) protein supplement 30 ea PO BID 08/28/23 10/05/23 History vitamin B complex with vit C-folic 1 tab PO DAILY 08/28/23 10/05/23 History acid 800 mcg-zinc 12.5 mg tablet (RenaPlex) metoprolol succinate 50 mg 50 mg PO HS #30 tabs 08/31/23 10/05/23 Rx tablet,extended release 24 hr amino acid-protein hyd 16 gram-100 30 ml PO DIRECTED 10/05/23 10/05/23 History kcal/30 mL oral liq meter-dose pump (Liquacel) ferric citrate 210 mg iron tablet 420 mg PO TIDWMEAL 10/05/23 10/05/23 History (Auryxia) Patient History Medical History Palliative care encounter Recurrent pleural effusion Chest pain Acute respiratory failure with hypoxia Hypoxia Hypervolemia SOB (shortness of breath) Heart failure with acute decompensation, type unknown Acute hypoxemic respiratory failure Anemia of chronic disease Fluid overload Pleural effusion chronic, recurrent Hyperkalemia Symptomatic anemia Anemia Acute upper gastrointestinal bleeding ESRD (end stage renal disease) on dialysis HD patient follows w/ Dr Munson [facility] 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 AV fistula Kidney transplant candidate reason for colonoscopy to get on list Hypertension Restless leg syndrome Nephrolithiasis Benign prostatic hyperplasia with urinary obstruction Surgical History History of colonoscopy H/O inguinal hernia repair History of cystoscopy Status post creation of arteriovenous fistula left arm History of tooth extraction History of thoracentesis Family History Other No family history of adverse response to anesthesia No significant family history Social History Smoking Status: Never smoker Tobacco Type: Cigarettes Second Hand Exposure: No; Do You Dip or Chew Tobacco: No; Hx Alcohol Use: No Hx Substance Use: No Preferred Language: Ugandan Communication Ability: Effective Communication Ability Comment: pt using cell phone to translate Communication Tools: IPad and Language Line Pharmacy Intern Pharmacy Intern Required: Yes, Video and Voice Beliefs That Will Affect Care: None marital status: Current Living Situation: Spouse current occupational status: employed Feels Safe at Home: Yes Safety Concerns: Feels Safe At This Time Assistive Devices: Oxygen - Continuous Results & Data Vital Signs (Past 12 Hours) Vital Signs Temp Pulse Resp BP Pulse Ox O2 Del Method O2 Flow Rate 10/06/23 08:00 36.8 C 84 18 159/83 H 95 Nasal Cannula 2 10/06/23 08:00 Nasal Cannula 2 10/06/23 03:28 36.9 C 90 16 155/88 H 94 Nasal Cannula 2.0 10/05/23 23:30 Nasal Cannula 2 10/05/23 23:02 36.8 C 93 H 20 162/84 H 90 Nasal Cannula 2.0
--- NOTE | 2023-10-06 12:00 | Hospitalist Progress Note ---
Date of Service October 06, 2023 Assessment & Plan (1) Shortness of breath: (2) Acute hypoxemic respiratory failure: (3) Recurrent pleural effusion: Plan: 67-year-old Citizen Of [place] male with past medical history of end-stage renal disease on hemodialysis, chronic systolic heart failure, recurrent pleural effusion presented to the ED with worsening shortness of breath. On home oxygen at 1 L nasal cannula Procalcitonin elevated at 2.17 on admission WBC within normal limits Chest x-ray on admission showed cardiomegaly and mild congestive changes. Small right and moderate left pleural effusion persist Has had multiple thoracentesis in the past with negative cytology Last thoracentesis on 08/28/23 were 650 mL fluid removed Pulm evaluated. Noted loculated left effusion. Pulm is planning thoracentesis today after HD May need VATS for left loculated effusion Will continue ceftriaxone, doxycycline for now Follow up infectious workup Acute on chronic systolic CHF Valvular heart disease Fluid management with HD Elevated troponin Mostly due to end-stage renal disease and respiratory failure due to pleural effusion Troponin on admission 203 (lower than 590 on 08/28/23) EKG showed no acute ST changes End-stage renal disease Getting HD per Nephro Chronic anemia Hemoglobin 9.1 Continue monitor H&H Hypertension Continue home medications of metoprolol succinate, hydralazine, losartan, amlodipine, Imdur Continue monitor BP closely DVT prophylaxis Heparin subcu CODE STATUS full code I spent a total of 45 minutes coordinating, documenting and providing care for this patient excluding time spent in performance of separately billed services Admission and Anticipated Discharge Date Admission Date: October 05, 2023 Subjective Patient seen and examined in HD unit Reports feeling better today Reports SOB which is chronic and worsened within the past few days Reports productive couhg Denied chest pain, fever, chills Physical Exam Constitutional: + well hydrated; no acute distress Eyes: PERRL, conjunctivae normal, anicteric sclerae ENMT: external ear and nose normal, oropharynx normal Respiratory: normal respiratory effort; no respiratory distress Diminished breath sounds lung bases Cardiovascular: Rate/Rhythm: regular rate and regular rhythm S1 S2 Gastrointestinal (Abdomen): normal bowel sounds, soft, nontender, no hepatosplenomegaly Musculoskeletal: No pedal edema Neurologic: PERRL, EOMI, accommodation nl, no face palsy, no dysarthria Results & Data Results & Data Vital Signs (Past 12 Hours) Vital Signs Temp Pulse Pulse Pulse Resp BP BP 03/15/24 11:00 73 140/89 10/06/23 10:30 77 142/92 H 10/06/23 10:08 36.5 C 58 L 10/06/23 08:00 36.8 C 84 18 159/83 H 10/06/23 08:00 10/06/23 03:28 36.9 C 90 16 155/88 H Pulse Ox O2 Del Method O2 Flow Rate 10/06/23 11:00 10/06/23 10:30 10/06/23 10:08 10/06/23 08:00 95 Nasal Cannula 2 10/06/23 08:00 Nasal Cannula 2 10/06/23 03:28 94 Nasal Cannula 2.0 Laboratory Results Abnormal lab results 10/05/23 10/05/23 10/05/23 Range/Units 14:45 17:39 22:40 RBC (4.70-6.10) M/uL Hgb (14.0-18.0) g/dl Hct (42.0-52.0) % MCHC (32.0-36.0) g/dL RDW Std Deviation (36.4-46.3) fL RDW Coeff of Diamond (11.5-14.5) % [place] # (Auto) (0.11-0.59) K/uL Eos # (Auto) (0.00-0.50) K/uL Anion Gap (3-11) BUN (6-23) mg/dl Creatinine (0.6-1.4) mg/dl BUN/Creatinine Ratio (10-20) Troponin I High Sens 195.9 H* 198.2 H* (0-20) pg/ml Total Protein (6.0-8.3) gm/dl Procalcitonin 2.17 H (0-0.5) ng/ml Pleural pH (7.3-7.4) 10/06/23 10/06/23 Range/Units 07:00 15:20 RBC 3.29 L (4.70-6.10) M/uL Hgb 9.1 L (14.0-18.0) g/dl Hct 29.6 L (42.0-52.0) % MCHC 30.7 L (32.0-36.0) g/dL RDW Std Deviation 54.7 H (36.4-46.3) fL RDW Coeff of Diamond 16.5 H (11.5-14.5) % [place] # (Auto) 1.17 H (0.11-0.59) K/uL Eos # (Auto) 1.17 H (0.00-0.50) K/uL Anion Gap 14 H (3-11) BUN 73 H (6-23) mg/dl Creatinine 12.00 H* D (0.6-1.4) mg/dl BUN/Creatinine Ratio 6.1 L (10-20) Troponin I High Sens 178.4 H* (0-20) pg/ml Total Protein 5.9 L (6.0-8.3) gm/dl Procalcitonin (0-0.5) ng/ml Pleural pH 7.49 H (7.3-7.4)
--- NOTE | 2023-10-06 12:02 | Procedure Note ---
Procedure Note Date of Service October 06, 2023 Note Bedside Ultrasound: Lung: Right:-Moderate right-sided pleural effusion with dependent atelectasis Left:-Small left-sided pleural effusion with multiple loculations Please note the above document was generated using voice recognition software. It may contain grammatical, syntax or spelling errors.Any formal questions or concerns about the content, text or information contained within the body of this dictation should be directly addressed to the provider for clarification. Coding CPT Codes Pulmonary/Thoracic - Pulmonary and Thoracic: 68135 US, Chest, real time with imaging documentation ([id number]) [facility] [place] Procedure Codes (Charges) Pulmonary/Thoracic Procedure 1: Pulmonary and Thoracic: 44605 US, Chest, real time with imaging documentation
[2023-10-06 12:37] LABS: Albumin Level 3.4 gm/dl (3.4-5.0); Bilirubin,Total 0.4 mg/dl (0.2-1.0); Total Protein 5.9 gm/dl (6.0-8.3)
[2023-10-06] MEDS: EPOETIN ALFA 10,000 UNITS/ML VIAL IV SCH (13:20)
--- NOTE | 2023-10-06 15:26 | Procedure Note ---
Procedure Note Date of Service October 06, 2023 Note Procedure: Diagnostic therapeutic ultrasound-guided catheter thoracentesis Franchise Consultant: Dr. Amaris Sousa Indication: Right pleural effusion Consent: Signed by patient and verified with timeout prior to procedure Anesthesia: 1% lidocaine without epinephrine local. Procedure: Consent was verified and timeout performed. Appropriate imaging studies were reviewed prior to the procedure. Patient was placed in a seated position and limited thoracic ultrasound was performed of the right chest. See separate imaging. Appropriate site above the diaphragm for thoracentesis was selected. The skin was prepped and draped in normal sterile fashion. Lidocaine was used for local analgesia. Fluid was aspirated via the finder needle. A small skin miah was made with the scalpel and the catheter over the needle apparatus was advanced over the rib into the pleural space. Using the syringe one-way valve system, a total of 1400 mL's of serosanguineous fluid was removed. The catheter was removed and observed to be intact. A sterile dressing was applied. Post procedure chest x-ray was ordered. Fluid was sent for labs, culture and cytology. Complications: None Blood loss: None Coding CPT Codes Pulmonary/Thoracic - Pulmonary and Thoracic: 98894 Thoracentesis w imaging ([id number]) [facility] [place] Procedure Codes (Charges) Pulmonary/Thoracic Procedure 1: Pulmonary and Thoracic: 49940 Thoracentesis w imaging
--- NOTE | 2023-10-06 15:58 | XRay Report ---
XR chest 1V portable HISTORY: s/p thoracentesis COMPARISON: Chest 10/05/2023. FINDINGS: No pneumothorax. Small right and moderate left pleural effusions have slightly improved. St able round 3.5 cm left basilar density again noted. The heart remains mildly enlarged. No acute fract ures. No new focal lung consolidations. Bibasilar densities have improved. No evidence for pulmonary edema. IMPRESSION: 1. No pneumothorax. 2. Small right and moderate left pleural effusions have slightly improved. 3. Patchy bibasilar densities have also improved. ACT 112: Negative or not required by law. Electronically signed by: Eddy Jacobsen M.D. 10/06/2023 3:57 PM
[2023-10-06 16:13] LABS: Amylase Pleural Fluid 12 U/L
[2023-10-06 16:19] LABS: Glucose Pleural Fluid 74 mg/dl; LDH Pleural Fluid 128 U/L; Total Protein Pleural Fluid < 3.0 gm/dl
[2023-10-06] MEDS: traMADol HCL 50 MG TABLET PO PRN (16:38)
[2023-10-06 17:02] LABS: Appearance Pleural Fluid Bloody; Color Pleural Fluid Red; Eosinophils, Fluid 4 %; Lymphocytes, Fluid 15 %; Mono,Macrophage,Mesothelial 64 %; Neutrophils, Fluid 17 %; RBC Pleural Fluid Auto 36000 /uL; Source Pleural Fluid Right Lung; WBC Pleural Fluid Auto 719 /uL
[2023-10-06] MEDS: METOPROLOL SUCC 50MG EXT REL TAB PO SCH (21:05)
[2023-10-06] MEDS: ATORVASTATIN 40 MG TAB PO SCH (21:07)
[2023-10-07 06:50] LABS: Hematocrit (blood only) 32.1 % (42.0-52.0); Mean Corpuscular Hemoglobin 28.3 pg (25.0-34.0); Mean Corpuscular Hgb Conc 31.2 g/dL (32.0-36.0); Mean Corpuscular Volume 90.9 fL (80.0-100.0); Platelet Count 286 K/uL (130-400); RDW Coefficient of Variation 16.4 % (11.5-14.5); RDW Standard Deviation 54.2 fL (36.4-46.3); Red Blood Count 3.53 M/uL (4.70-6.10); White Blood Count 8.38 K/ul (4.8-10.8)
--- NOTE | 2023-10-07 06:51 | Electrocardiogram Report ---
Test Reason : Blood Pressure : / mmHG Vent. Rate : 095 BPM Atrial Rate : 095 BPM P-R Int : 200 ms QRS Dur : 098 ms QT Int : 378 ms P-R-T Axes : 071 022 225 degrees QTc Int : 475 ms Sinus rhythm with frequent Premature atrial complexes with Aberrant conduction Left ventricular hypertrophy with repolarization abnormality ( Basim product ) Abnormal ECG When compared with ECG of 30-AUG-2023 05:36, No significant change Confirmed by Víctor Sosa ([id number]) on 10/07/2023 6:50:51 AM Referred By: Confirmed By:Víctor Sosa
--- NOTE | 2023-10-07 07:18 | Pulmonology Progress Note ---
Date of Service October 07, 2023 Assessment & Plan (1) Shortness of breath: (2) Recurrent pleural effusion: (3) ESRD (end stage renal disease) on dialysis: (4) HFrEF (heart failure with reduced ejection fraction): (5) Hypoxia: Plan IMPRESSION: 67-year-old male with a significant past medical history of end- stage renal disease on hemodialysis Monday/Monday/Monday with associated heart failure with reduced ejection fraction who has been admitted on multiple occasions with recurrent pleural effusion in the setting of medical noncompliance with his hemodialysis as well as diet. Patient presents today with acute hypoxic respiratory failure in the setting of pleural effusions after skipping dialysis on Monday. --Recurrent bilateral pleural effusion S/p right-sided thoracentesis 10/06/2023, 1.4 L serosanguineous fluid removed, e xudative as per lights criteria looking at LDH Pleural: LDH 128, protein less than 3, pH 7.49 Serum: LDH 210, protein 5.9 For the left-sided loculated pleural effusion recommend VATS and pleurodesis -- End-stage renal disease on hemodialysis Continue with dialysis as directed by nephrology. -- Heart failure with reduced ejection fraction As managed by cardiology/nephrology. -- Hypoxia Currently on 2 L which is up from his baseline 1 L at all times. Likely secondary to his effusions. Plan: Recommend taking the patient off of oxygen as he is saturating well on 1 L nasal cannula. Incentive spirometry will be beneficial When it comes to the complex loculated effusion on the left. VATS would be preferred. Needs adequate dialysis and low sodium in the diet Case was discussed with primary team and RN No further recommendation from pulmonary perspective, will sign off Please call directly with any questions Please note the above document was generated using voice recognition software. It may contain grammatical, syntax or spelling errors.Any formal questions or concerns about the content, text or information contained within the body of this dictation should be directly addressed to the provider for clarification. Admission and Anticipated Discharge Date Admission Date: October 05, 2023 Subjective Patient seen and examined at bedside. No acute distress, notable since overnight. He was 97% on 2 L nasal cannula. I went down to 1 L. Overall he said that he is feeling almost the same. Does feel some pressure on the right side after the thoracentesis which is decreasing in intensity. Occasional cough. Denies any headache, no nausea or vomiting Review of Systems 2 Review of Systems: All systems reviewed & are unremarkable except as noted in Subjective Physical Exam 2 Physical Exam: Constitutional: No acute distress HEENT: EOMI, PERRLA Respiratory system: Decreased air entry bilaterally, more decreased on the left, no wheeze, no rhonchi, positive crackles bilaterally CVS: S1-S2 positive, positive 3 out of 6 systolic murmur appreciated best at apex Abdomen: Soft, nontender, nondistended, positive bowel sounds x4 Extremities: +2 pulses bilaterally radialis/ dorsalis pedis, no cyanosis, minimal pitting edema bilateral lower extremity, left arm AVF Neuro: Awake alert oriented x3 Psych: Normal mood and affect G/U: No Fisher Skin: no rashes, warm and dry Lymphatic: no cervical or axillary lymphadenopathy Results & Data Results & Data Vital Signs (Past 12 Hours) Vital Signs Temp Pulse Resp BP Pulse Ox O2 Del Method O2 Flow Rate 10/07/23 03:59 36.9 C 77 18 132/74 96 Room Air 10/06/23 22:47 36.5 C 82 19 130/73 96 Room Air 10/06/23 22:28 Nasal Cannula 2 Laboratory Results 10/07/23 05:46 PG Care Time/CCT Total # of Minutes Spent Total Time Spent with Patient: Total time spent is greater than 50% in coordination of care (as documented) at patient's floor/unit and/or counseling patient: Coding Level of Care Code 69136 SUB INP/OBS CARE 3/50MIN Diagnoses Shortness of breath R06.02 Recurrent pleural effusion J90 ESRD (end stage renal disease) on dialysis N18.6; Z99.2 HFrEF (heart failure with reduced ejection fraction) I50.20 Hypoxia R09.02
[2023-10-07 07:41] LABS: BUN Creatinine Ratio 4.9 (10-20); Calcium 9.6 mg/dl (8.6-10.3); Creatinine Clr Calc Pharmacy 7.4 ml/min; Est GFR (African American) 6.5 ml/min; Est GFR (Non-African American) 5.6 ml/min; Potassium 4.8 mmol/L (3.5-5.1)
--- NOTE | 2023-10-07 08:50 | XRay Report ---
XR chest 1V portable CLINICAL HISTORY: f/u COMPARISON STUDY: Chest radiograph October 06, 2023. FINDINGS: There is no pneumothorax. Bilateral pleural effusions, left larger than right, are similar to prior chest radiograph. A round midlung density remains unchanged. Cardiomediastinal silhouette is stable. Bibasilar opacities persist. There is pulmonary vascular congestion without overt pulmonary edema. IMPRESSION: 1. Cardiomegaly with pulmonary vascular congestion. 2. No change in bilateral pleural effusions, left larger than right. No pneumothorax. ACT 112: Negative or not required by law. Electronically signed by: Sivakumar Renee M.D. 10/07/2023 8:48 AM
[2023-10-07] MEDS: ACETAMINOPHEN 325 MG TAB PO PRN (09:10)
--- NOTE | 2023-10-07 11:21 | Nephrology Progress Note ---
Date of Service October 07, 2023 Assessment & Plan (1) ESRD (end stage renal disease) on dialysis: Plan: Patient had dialysis yesterday. Electrolytes are stable and no signs of volume overload. No indication for dialysis today. Next dialysis will be Monday. From renal standpoint patient can be discharged BP and AVF is fine (2) Pleural effusion: Plan: Will continue fluid removal with dialysis. (3) Recurrent pleural effusion: Plan: Ongoing issues. reviewed Pulmonary note and Plan of action. Also getting Abx. Admission and Anticipated Discharge Date Admission Date: October 05, 2023 Subjective Seen for ESRD. He feels better today. He complains of intermittent right-sided pain with deep breath. Review of Systems 2 Review of Systems: All other systems were reviewed and negative except as noted in HPI Physical Exam 2 Physical Exam: General exam: Appears comfortable, no acute distress HEENT: Pupils are equal and reactive to light Neck: No JVD, neck is supple trachea is midline Respiratory system: Clear breath sounds bilaterally. Gastrointestinal: Abdomen is soft, non distended, non tender, bowel sounds are present CVS: Regular rate and rhythm. No murmurs, rubs or gallops Musculoskeletal: No joint or muscle tenderness Extremities: Non tender, no edema, peripheral pulses are present Neuro: Oriented, no tremors, no focal neurological deficits Skin: No rashes Results & Data Vital Signs (Past 12 Hours) Vital Signs Temp Pulse Resp BP Pulse Ox O2 Del Method 10/07/23 08:00 36.8 C 68 18 119/61 98 Room Air 10/07/23 03:59 36.9 C 77 18 132/74 96 Room Air Laboratory Results 10/07/23 05:46 10/06/23 10/07/23 07:00 05:46 WBC 8.38 RBC 3.53 L MCV 90.9 MCH 28.3 MCHC 31.2 L RDW Std Deviation 54.2 H RDW Coeff of Diamond 16.4 H Plt Count 286 MPV 11.0 Albumin 3.4
--- NOTE | 2023-10-07 13:17 | Discharge Summary ---
Date of Service October 07, 2023 Admission HPI Per Admitting Provider 67 years old male Salvadorean speaking with past medical history of end-stage renal disease on hemodialysis, hypertension, chronic systolic CHF, paroxysmal atrial flutter, valvular heart disorder, p-ANCA vasculitis, history of ME, anemia of chronic disease, secondary hyperparathyroidism, history of pulmonary edema, recurrent pleural effusion status post thoracentesis which required hospital admission for respiratory failure presented to the ED for worsening shortness of breath. Patient was recently discharged last month for pleural effusion where he underwent thoracentesis. He said after discharge he was able to move around on and kept tract of his daily steps. Patient said in the last 3 days he has been having shortness of breath with exertion. He said that he feels weak. Today his breathing got worse. He has been having greenish productive cough and unable to bring the phlegm up. Patient is on home oxygen with 1 L, currently is on 2 L oxygen with nasal cannula. Patient said he has his last hemodialysis was yesterday and he is scheduled to dialyze tomorrow. Denies any fever, chills, palpitation, dizziness, sore throat, runny nose. Admission Exam Per Admitting Provider General- No acute distress Head- atraumatic Eyes- PERRL, EOMI, ENT- oropharynx clear Neck- supple, no JVD Lungs- +crackles Heart- regular rhythm; +murmur Abdomen- normal bowel sounds, soft, nontender Extremities- no calf tenderness Neuro- alert, oriented x 3; PERRL, EOMI; no facial palsy; no dysarthria Skin- warm & dry Principal Diagnosis Shortness of breath Recurrent Pleural Effusion Status post Right thoracentesis Discharge Exam Constitutional + well hydrated; no acute distress Eyes PERRL, conjunctivae normal, anicteric sclerae ENMT external ear and nose normal, oropharynx normal Respiratory normal respiratory effort; no respiratory distress Diminished breath sounds lung bases Cardiovascular Rate/Rhythm: regular rate and regular rhythm S1 S2 Gastrointestinal (Abdomen) normal bowel sounds, soft, nontender, no hepatosplenomegaly Neurologic PERRL, EOMI, accommodation nl, no face palsy, no dysarthria Discharge Data Allergies Allergy/AdvReac Type Severity Reaction Status Date / Time No Known Allergies Allergy Verified 10/05/23 17:51 Consultations 10/05/23 16:28 ED Decision to Admit Stat 10/05/23 20:34 Consult Nephrology Routine 10/06/23 07:00 Consult Pulmonology Routine Ordered Studies 10/06/23 10:23 US point of care ultrasound Urgent Hospital Course (1) Shortness of breath: (2) Acute hypoxemic respiratory failure: (3) Recurrent pleural effusion: 67-year-old Salvadorean male with past medical history of end-stage renal disease on hemodialysis, chronic systolic heart failure, recurrent pleural effusion presented to the ED with worsening shortness of breath. On home oxygen at 1 L nasal cannula Procalcitonin elevated at 2.17 on admission WBC within normal limits Chest x-ray on admission showed cardiomegaly and mild congestive changes. Small right and moderate left pleural effusion persist Has had multiple thoracentesis in the past with negative cytology Pulm evaluated. Noted loculated left effusion. Pulm performed right thoracentesis with 1.4L of fluid removed on 10/06/23 Patient reports feeling better today Discussed with Cigarette Examiner today who recommends patient to follow up with Cardiothoracic surgery for evaluation for possible VATS/mgt and to discharge on doxycycline to complete 7 days of treatment May need VATS for left loculated effusion I called daughter per patient's request and updated her. Our Nurse Coordinator will help with CT surg referral on Mon and update daughter Acute on chronic systolic CHF Valvular heart disease Fluid management with HD Elevated troponin Mostly due to end-stage renal disease and respiratory failure due to pleural effusion Troponin on admission 203 (lower than 590 on 08/28/23) EKG showed no acute ST changes End-stage renal disease Getting HD per Nephro Chronic anemia Hemoglobin today is 10 Hypertension Continue home medications of metoprolol succinate, hydralazine, losartan, amlodipine, Imdur Total Time Total Time Spent Total Time Spent (In Minutes): 45 Total Time Includes: Examination of the Patient, Discharge Planning, Medication Reconciliation, Communication With Other Providers and Other Discharge Plan Discharge Items Patient Disposition: Home - Self-Care Reason For Visit: Shortness of breath Discharge Diagnosis: Shortness of breath Recurrent Pleural Effusion Status post Right thoracentesis Activity: Resume your previous activity Non-emergency contact: Primary Care Provider Call non-emergency contact if: you have any medication questions and your symptoms worsen Follow-up/Referrals: Cisco Starkey MD [Primary Care Provider] - Diet: Dialysis Renal, Heart Healthy and Low Sodium (2gm) Addtl Attending Provider Instructions: Mr De La Rosa You came to the hospital due to worsening shortness of breath. You were evaluated and found to have recurrent fluid in your chest cavity. You had thoracentesis on the right with removal of 1.4 L of fluid. You are being discharged home. Please ensure follow up with Cardiothoracic surgeon outpatient for further evaluation and management as we discussed. Continue to follow up with your Family Doctor and your Kidney Doctor. It was a pleasure taking care of you. Pending Studies at Discharge: Yes Studies:: Pleural fluid microscopy Stand-Alone Forms: My [facility], Smoking Cessation Medications and DC Order Prescriptions: New doxycycline hyclate 100 mg Capsule 100 mg PO BID 4 Days Qty: 8 0RF Continued ergocalciferol (vitamin D2) [Vitamin D2] 1,250 mcg (50,000 unit) capsule 1,250 mcg PO WK amlodipine 10 mg tablet 10 mg PO DAILY losartan [Cozaar] 50 mg Tablet 50 mg PO AMHS Qty: 30 0RF hydralazine 100 mg tablet 100 mg PO TID Qty: 90 0RF atorvastatin 40 mg tablet 40 mg PO HS Qty: 30 0RF Auryxia 210 mg iron tablet 420 mg PO TIDWMEAL Rx Instructions: 1 TAB WITH SNACKS, INFO PER PHARMACY Liquacel 16 gram-100 kcal/30 mL Liquid In Metered-Dose Pump 30 ml PO DIRECTED ondansetron HCl 4 mg Tablet 4 mg PO Q8H PRN (Reason: NAUSEA/VOMITING) protein supplement Liquid 30 ea PO BID Rx Instructions: DOSE 30 ML BID guaifenesin [Mucinex] 600 mg Tablet Extended Release 12hr 600 mg PO BID PRN (Reason: Congestion) Veltassa 8.4 gram Powder In Packet 8.4 g PO Q OTHER DAY Rx Instructions: INFO PER PHARMACY RenaPlex 800 mcg- 12.5 mg Tablet 1 tab PO DAILY Sodium Chloride Tab 250 mg PO Q OTHER DAY allopurinol 100 mg tablet 100 mg PO DAILY isosorbide dinitrate 20 mg tablet 20 mg PO TID Rx Instructions: QAM, 1200, & HS metoprolol succinate 50 mg Tablet Extended Release 24 Hr 50 mg PO HS Qty: 30 0RF Discharge Orders: Discharge Order (Routine); Ordered 10/07/23 Ordered By: Celestina Rush Admission Data Admit Date/Time: 03/14/24 17:32 Attending Provider: Celestina Rush I. Admit Provider: Anne Marie Garcia Primary Care Provider: Cisco Starkey Other Providers: Anne Marie Garcia; Maicol Damon; Amaris Sousa Other Interventions: Discharge Summary Assessment (RN) Last Done: 10/07/23 13:46
[2023-10-11] MEDS ORDERED: ERGOCALCIFEROL 1250 MCG (50,000 UNITS) CAP PO SCH (09:00)
== END 2023-10-07 15:07 | disposition home or self-care (01) | DRG 291 ==
LOC: ED 12:58 → SUATTDRO 17:32 → 4W 17:32

== ENCOUNTER 2023-11-08 10:18 | Inpatient (IN) ==
--- NOTE | 2023-11-07 09:49 | Anesthesiology Consultation ---
Date of Service November 07, 2023 Assessment & Plan (1) Encounter for pre-operative examination: - check BMP STAT am DOS. To anesthesiologist discretion if additional testing is needed DOS. - ESRD on dialysis: M, W, F. - [employer] Business Analyst needed: Mauritanian. - discharge summary [facility] 10/07/23: "...Shortness of breath: Acute hypoxemic respiratory failure: Recurrent pleural effusion...67-year-old Mauritanian male with past medical history of end-stage renal disease on hemodialysis, chronic systolic heart failure, recurrent pleural effusion presented to the ED with worsening shortness of breath. On home oxygen at 1 L nasal cannula...Chest x-ray on admission showed cardiomegaly and mild congestive changes. Small right and moderate left pleural effusion persist. Has had multiple thoracentesis in the past with negative cytology...Discussed with Vulcanizer Rubber Plate today who recommends patient to follow up with Cardiothoracic surgery for evaluation for possible VATS/mgt and to discharge on doxycycline to complete 7 days of treatment. May need VATS for left loculated effusion...Elevated troponin Mostly due to end- stage renal disease and respiratory failure due to pleural effusion Troponin on admission 203 (lower than 590 on 08/28/23) EKG showed no acute ST changes..." - cardiology office note 07/19/23 [facility]: "...End-stage renal disease on hemodialysis. Large pericardial effusion in the setting of acute renal failure, resolved per most recent echos. Atrial flutter in the above setting spontaneously resolved. Reportedly p-ANCA positive. Hypertension with severe LVH. Medical non compliance. Recurrent admissions for respiratory failure with large B/L pleural effusions, requiring repeated thoracentesis...hospitalized about 1 time per month over the last 6 months for recurrent acute respiratory failure with hypoxia requiring thoracentesis. Patient was evaluated on one admission by Cardiology for HTN. Hydralazine increased and isosorbide initiated with improvement in his BP readings. Echo during that time revealed severe LVH with global hypokinesis, EF 45-50%. He presents today feeling well. Last thoracentesis as done 1 week ago as an outpatient...doing well currently. Ongoing close surveillance of his fluid status needs to be monitored at HD 3 times per week. Monthly thoracentesis also recommended to aid fluid status. His BP is currently well controlled..." - S 10/31/23 PCP note unsigned at time of review. - Per controls designer on 11/07/23: No known infectious disease contacts, current infectious disease symptoms in past 10 days or COVID positive test result in the past 30 days. COVID test will be needed given protocol in dialysis patients, Reynolds ordered for am DOS. Chart Review Chart Review: Acceptable Risk for Surgery and Patient NOT seen in Pre Admission Testing History Surgery Operation Date: 11/08/23 12:00 Proposed Procedures p Left Upper Extremity Fistula Thrombectomy, - Enrique Viera MD s Possible Fistulogram with Intervention, - Enrique Viera MD s Possible Perm Catheter Insertion - Enrique Viera MD Height/Weight Height: 5 ft 8 in Weight: 68.2 kg Allergies Allergy/AdvReac Type Severity Reaction Status Date / Time No Known Allergies Allergy Verified 11/07/23 08:59 Medications Home Medications Medication Instructions Recorded Confirmed Last Taken atorvastatin 40 mg tablet 40 mg PO HS #30 tabs 03/28/23 11/07/23 11/01/23 21:00 hydralazine 100 mg tablet 100 mg PO TID #90 tabs 03/28/23 11/07/23 11/02/23 09:00 losartan 50 mg tablet (Cozaar) 50 mg PO AMHS #30 tabs 03/28/23 11/07/23 11/02/23 09:00 ergocalciferol (vitamin D2) 1,250 1,250 mcg PO WK 04/15/23 11/07/23 10/30/23 mcg (50,000 unit) capsule (Vitamin D2) amlodipine 10 mg tablet 10 mg PO DAILY 06/12/23 11/07/23 11/01/23 09:00 Sodium Chloride Tab 250 mg PO Q OTHER DAY 08/28/23 11/07/23 Unknown allopurinol 100 mg tablet 100 mg PO DAILY 08/28/23 11/07/23 11/01/23 09:00 guaifenesin 600 mg tablet, 600 mg PO BID PRN Congestion 08/28/23 11/07/23 Unknown extended release 12 hr (Mucinex) isosorbide dinitrate 20 mg tablet 20 mg PO TID 08/28/23 11/07/23 11/02/23 09:00 ondansetron HCl 4 mg tablet 4 mg PO Q8H PRN NAUSEA/VOMITING 08/28/23 11/07/23 Unknown patiromer calcium sorbitex 8.4 8.4 g PO Q OTHER DAY 08/28/23 11/07/23 08/27/23 gram oral powder packet (Veltassa) protein supplement 30 ea PO BID 08/28/23 11/07/23 11/01/23 18:00 vitamin B complex with vit C-folic 1 tab PO DAILY 08/28/23 11/07/23 11/01/23 09:00 acid 800 mcg-zinc 12.5 mg tablet (RenaPlex) metoprolol succinate 50 mg 50 mg PO HS #30 tabs 08/31/23 11/07/23 11/02/23 09:00 tablet,extended release 24 hr amino acid-protein hyd 16 gram-100 30 ml PO DIRECTED 10/05/23 11/07/23 Unknown kcal/30 mL oral liq meter-dose pump (Liquacel) ferric citrate 210 mg iron tablet 420 mg PO TIDWMEAL 10/05/23 11/07/23 11/01/23 18:00 (Auryxia) Past Medical History Medical History (Updated 11/07/23 @ 10:55 by Cintia Chavez PA-C) Anemia of chronic disease Aortic ectasia AV fistula left arm Benign prostatic hyperplasia with urinary obstruction Chest pain hx--not current issue CHF (congestive heart failure) EF 45-50% on 08/2023 echo Chronic respiratory failure ESRD (end stage renal disease) on dialysis HD patient follows w/ Dr Munson [facility]: M, W and F per [facility] RN notation. 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 Heart valve disorder History of [place] (myocardial infarction) Hyperkalemia Hypertension Mild aortic stenosis Nephrolithiasis Paroxysmal atrial flutter Pleural effusion chronic, recurrent Pulmonary hypertension PASP 45 mmHg on 08/2023 echo Restless leg syndrome Secondary hyperparathyroidism SOB (shortness of breath) Past Family History Family History Other No family history of adverse response to anesthesia No significant family history Past Surgical History Surgical History H/O inguinal hernia repair History of colonoscopy History of cystoscopy History of thoracentesis History of tooth extraction Status post creation of arteriovenous fistula left arm Social History Smoking Status: Never smoker tobacco type: cigarettes Do You Dip or Chew Tobacco: No Hx Alcohol Use: No Hx Substance Use: No substance use type: does not use Lab Results Anesthesia Preop Results Results Anesthesia Widget: WBC 8.38 K/ul (4.8-10.8) 10/07/23 Hgb 10.0 g/dl (14.0-18.0) L 10/07/23 Hct 32.1 % (42.0-52.0) L 10/07/23 Plt 286 K/uL (130-400) 10/07/23 Na 140 mmol/L (136-145) 10/07/23 K 5.0 mmol/L (3.5-5.1) 11/02/23 Cl 102 mmol/L (98-107) 10/07/23 CO2 25 mmol/L (21-32) 10/07/23 BUN 43 mg/dl (6-23) H 10/07/23 Creat 8.77 mg/dl (0.6-1.4) H* 10/07/23 Glucose Level 55 mg/dl (70-99(Fasting)) L 10/07/23 Coronavirus OC43 (PCR) Not Detected (NotDetected) 10/05/23 Coronavirus HKU1 (PCR) Not Detected (NotDetected) 10/05/23 Coronavirus 229E (PCR) Not Detected (NotDetected) 10/05/23 COVID-19 PCR Not Detected (NotDetected) 10/05/23 Coronavirus NL63 (PCR) Not Detected (NotDetected) 10/05/23 SARS-CoV-2, RNA, NAAT NEGATIVE (NEGATIVE) 11/02/23 Testing Electrocardiogram Date: 10/05/23 Sinus rhythm with frequent PACs with aberrant conduction, rate 95 bpm LVH with repolarization abnormality No significant changed vs 01/25/24 EKG Chest X-Ray Date: 10/07/23 *1view* Cardiomegaly with pulmonary vascular congestion. No change in bilateral pleural effusions, left larger than right. No pneumothorax. Echocardiogram Date: 08/28/23 EF 45-50% Moderate cLVH Moderately dilated LA Moderately calcified aortic valve, mild valvular aortic stenosis (LAURA 1.2 cm2, mean PG 11.6 mmHg) Calcified mitral apparatus Mild mitral regurgitation Mild tricuspid regurgitation Est systolic pulmonary pressure 45 mmHg Other Testing Chest CT 12/23/22 1. No right upper lobe pulmonary nodule is seen. 2. Findings of fluid overload, noting pulmonary edema with moderate bilateral pleural effusions. Head CTA 03/28/23 1. No acute infarct or intracranial hemorrhage. 2. No significant stenosis, occlusion, or aneurysm within the [place] of [place]. Abdomen pelvis CT 11/10/22 1. A peritoneal dialysis catheter is coiled in the right lower quadrant from a left upper quadrant approach. Numerous foci of intraperitoneal free air are nonspecific given the presence of an indwelling catheter. 2. There is a large thick-walled fluid collection filling the ventral abdomen and pelvis which contains foci of gas and posteriorly displaces the bowel loops. The sterility of this fluid cannot be evaluated by imaging. Clinical correlation will be essential. 3. Moderate pleural effusions with dependent consolidation. 4. Cardiomegaly and advanced atherosclerotic change. 5. Additional findings as above.
--- NOTE | 2023-11-08 07:41 | History & Physical Report ---
Date of Service November 08, 2023 Assessment & Plan (1) Hemodialysis AV fistula thrombosis: Plan: Patient is admitted for a thrombectomy of his fistula with possible intervention if needed and the possibility of a permcath insertion. I have discussed the risks options and benefits of the procedure with the patient. The patient understands the risks options and benefits and agrees to the procedure. History of Present Illness Chief Complaint: Thrombosed left upper extremity av fistula Primary Care Provider: Cisco Starkey MD Patient is a 68yo male with a left upper arm fistula in place. It did not have a thrill at dialysis last week. Patient admitted for a thrombectomy of his fistula and an attempt to salvage the fistula. Allergies Allergy/AdvReac Type Severity Reaction Status Date / Time No Known Allergies Allergy Verified 11/07/23 08:59 Home Medications Medication Instructions Recorded Confirmed Type atorvastatin 40 mg tablet 40 mg PO HS #30 tabs 03/28/23 11/07/23 Rx hydralazine 100 mg tablet 100 mg PO TID #90 tabs 03/28/23 11/07/23 Rx losartan 50 mg tablet (Cozaar) 50 mg PO AMHS #30 tabs 03/28/23 11/07/23 Rx ergocalciferol (vitamin D2) 1,250 1,250 mcg PO WK 04/15/23 11/07/23 History mcg (50,000 unit) capsule (Vitamin D2) amlodipine 10 mg tablet 10 mg PO DAILY 06/12/23 11/07/23 History Sodium Chloride Tab 250 mg PO Q OTHER DAY 08/28/23 11/07/23 History allopurinol 100 mg tablet 100 mg PO DAILY 08/28/23 11/07/23 History guaifenesin 600 mg tablet, 600 mg PO BID PRN Congestion 08/28/23 11/07/23 History extended release 12 hr (Mucinex) isosorbide dinitrate 20 mg tablet 20 mg PO TID 08/28/23 11/07/23 History ondansetron HCl 4 mg tablet 4 mg PO Q8H PRN NAUSEA/VOMITING 08/28/23 11/07/23 History patiromer calcium sorbitex 8.4 8.4 g PO Q OTHER DAY 08/28/23 11/07/23 History gram oral powder packet (Veltassa) protein supplement 30 ea PO BID 08/28/23 11/07/23 History vitamin B complex with vit C-folic 1 tab PO DAILY 08/28/23 11/07/23 History acid 800 mcg-zinc 12.5 mg tablet (RenaPlex) metoprolol succinate 50 mg 50 mg PO HS #30 tabs 08/31/23 11/07/23 Rx tablet,extended release 24 hr amino acid-protein hyd 16 gram-100 30 ml PO DIRECTED 10/05/23 11/07/23 History kcal/30 mL oral liq meter-dose pump (Liquacel) ferric citrate 210 mg iron tablet 420 mg PO TIDWMEAL 10/05/23 11/07/23 History (Auryxia) Past Med/Surg History Medical History Mild aortic stenosis Pulmonary hypertension PASP 45 mmHg on 08/2023 echo Aortic ectasia Secondary hyperparathyroidism History of [place] (myocardial infarction) Heart valve disorder Paroxysmal atrial flutter Chronic respiratory failure CHF (congestive heart failure) EF 45-50% on 08/2023 echo Chest pain hx--not current issue SOB (shortness of breath) Anemia of chronic disease Pleural effusion chronic, recurrent Hyperkalemia ESRD (end stage renal disease) on dialysis HD patient follows w/ Dr Munson [facility]: M, W and F per [facility] notation. 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 AV fistula left arm Hypertension Restless leg syndrome Nephrolithiasis Benign prostatic hyperplasia with urinary obstruction Surgical History History of colonoscopy H/O inguinal hernia repair History of cystoscopy Status post creation of arteriovenous fistula left arm History of tooth extraction History of thoracentesis Family History Other No family history of adverse response to anesthesia No significant family history Social History Smoking Status: Never smoker Tobacco Type: Cigarettes Second Hand Exposure: No; Do You Dip or Chew Tobacco: No; Tobacco Cessation Education Requested by Patient: No Hx Alcohol Use: No Hx Substance Use: No Preferred Language: [place] Communication Ability: Effective Communication Ability Comment: daughter speaks yakut well, pt will need software intern device Communication Tools: IPad and Language Line Crate Builder Crate Builder Required: Yes, Video and Voice Beliefs That Will Affect Care: None marital status: Current Living Situation: Spouse current occupational status: employed Other Information That Helps Us Care for You: No Assistive Devices: Oxygen - Continuous Review of Systems All systems reviewed & are unremarkable except as noted in HPI & below Physical Exam 2 Constitutional: WD/WN, vitals as above Respiratory: normal respiratory effort, lungs clear to auscultation Cardiovascular: RRR, no murmur, no edema Extremities: no AV fistula (not thrill) Gastrointestinal (Abdomen): Inspection/Auscultation: abdomen normal to inspection; abdomen not distended Percussion/Palpation: abdomen soft; abdomen nontender Neurologic: CN's II-XI intact bilaterally and moves all extremities Psychiatric: Orientation: alert and oriented x 3
[~2023-11-08 10:18] MED LIST: ROPIVACAINE 0.5% 5 MG/ML 30 ML VIAL ONE
[2023-11-08] MEDS ORDERED: fentaNYL citrate PF 100 MCG/2 ML VIAL ONE (11:39)
[2023-11-08] MEDS ORDERED: MIDAZOLAM HCL 1 MG/ML 2ML VIAL ONE (11:42)
[2023-11-08] MEDS ORDERED: PROPOFOL IV EMULSION 10 MG/ML 20 ML VIAL IV ONE (11:46)
[2023-11-08] MEDS: SODIUM CHLORIDE 0.9% 1,000 ML IV SCH (12:12)
--- NOTE | 2023-11-08 12:12 | History & Physical Bridge Note ---
Date of Service November 08, 2023 History & Physical Bridge Note I have examined the patient, reviewed the History & Physical and in the interval since the performance of the History & Physical I have noted the following changes of clinical significance: no changes noted
[2023-11-08 12:34] LABS: Calcium 9.6 mg/dl (8.6-10.3); Est GFR (African American) 2.9 ml/min; Est GFR (Non-African American) 2.5 ml/min; Potassium 7.2 mmol/L (3.5-5.1)
[2023-11-08 12:42] LABS: Partial Thromboplastin Time 28 Seconds (21-31); Prothrombin Time 10.9 Seconds (9.0-12.0)
[2023-11-08 12:47] LABS: BUN Creatinine Ratio 10.6 (10-20)
--- NOTE | 2023-11-08 12:49 | History & Physical Bridge Note ---
Date of Service November 08, 2023 History & Physical Bridge Note I have examined the patient, reviewed the History & Physical and in the interval since the performance of the History & Physical I have noted the following changes of clinical significance: no changes noted Potassium resulted at 7.2. Will [address] a permcath for dialysis and not do a thrombectomy.
[2023-11-08] MEDS: BUPIVACAINE/EPINEPHRINE 0.5% MPF 1:200,000 30 ML VIAL ONE (13:00)
[2023-11-08] MEDS: LIDOCAINE 1% LOCAL 20 ML VIAL ONE ×2 (13:00→14:07)
[2023-11-08] MEDS: GELATIN SPONGE 12-7MM ONE (13:00)
[2023-11-08] MEDS: THROMBIN FOR SOLN 20000 UNIT KIT ONE (13:00)
[2023-11-08] MEDS: CEFAZOLIN 2,000 MG/15 ML SYR IV SCH (13:10)
--- NOTE | 2023-11-08 13:53 | Operative Report ---
Post Operative Report Pre & Post Diagnosis Operation Date: 11/08/23 12:00 Pre-Op Diagnosis: End Stage Renal Disease Post-Op Diagnosis: End Stage Renal Disease I identified the patient and participated in the time-out.: Yes Procedure Operation Date: 11/08/23 12:00 Actual Procedures p Perm Catheter Placement, Right Internal Jugular Approach, Ultrasound Localiz ation of Right Internal Jugular Vein, Fluoroscopy for Positioning(Right) - Enrique Viera MD Surgeon Enrique Viera MD Blankbook Stitching Machine Operator Jose Fernandes MD Estimated Blood Loss 3 Findings Consistent with Post-Op Diagnosis Placement of tunneled dialysis catheter within the SVC. Flushes easily. Specimens None Anesthesia Type MAC Complications None Disposition Accompanied Patient To Recovery: No Indications 68 year old male with ESRD on HD with a thrombosed LUE AV fistula. In need of access for dialysis. Description of Procedure Patient was taken to the angio suite and placed in the supine position. The right side of the neck and chest wall were prepped and draped in a sterile manner. Local anesthesia, 12cc of lidocaine was then administered to the appropriate areas of the neck and chest wall. Ultrasound was then used to locate the right internal jugular vein. The vein compressed easily, had no filing defects, and was patent. The vein was then punctured under direct ultrasound imaging. A guidewire was then passed centrally under fluoroscopic imaging. A stab wound was then made in the anterior chest wall and a 19 cm permcath was passed from the stab wound on the chest wall to the puncture site on the neck. The puncture site was then dilated till the 14Fr peel away sheath was inserted. The permcath was then inserted through the sheath to a central po sition in the distal superior vena cava. The peel away sheath was then removed. The catheter was then sutured in place using nylon sutures. The puncture was then closed using a 4-0 Vicryl subcuticular suture. Dermabond was used for a dressing on the puncture site. Both ports aspirated and flushed easily and were then packed with heparin. A sterile dressing was applied to the catheter. The patient left the angio suite in good condition and tolerated the procedure well. Dr. Viera was present and scrubbed for the entire procedure. I attest to the content of the Intraoperative Record and any orders documented therein. Any exceptions are noted below. Supervising Physician Co-Signing Physician Notes Enrique Viera MD
--- NOTE | 2023-11-08 13:54 | Post Operative Brief Note ---
Immediate Post Op Note v1 Date of Surgery November 08, 2023 Pre & Post Diagnosis Operation Date: 11/08/23 12:00 Pre-Op Diagnosis: End Stage Renal Disease Post-Op Diagnosis: End Stage Renal Disease I identified the patient and participated in the time-out.: Yes Procedure Operation Date: 11/08/23 12:00 Actual Procedures p Perm Catheter Placement Right Internal Jugular Approach, Ultrasound Localization of Right Internal Jugular Vein, Fluoroscopy for Positioning(Right) - Enrique Viera MD Surgeon Enrique Viera MD Veterinary Technology Instructor Jose Fernandes MD Estimated Blood Loss 3 Findings Consistent with Post-Op Diagnosis Anesthesia Type MAC Complications none Disposition Accompanied Patient To Recovery: No Disposition: Recovery Room
[2023-11-08] MEDS: HEPARIN SOD (PORCINE) 5,000 UNITS/ML VIAL ONE (14:08)
[2023-11-08] MEDS ORDERED: ATROPINE SULFATE 0.1 MG/ML 10ML SYR IV PRN (14:21)
[2023-11-08] MEDS ORDERED: ONDANSETRON INJ 2 MG/ML 2 ML VIAL IV PRN ×2 (14:21→20:19)
[2023-11-08] MEDS ORDERED: HYDROmorphone INJ 1 MG/ML SYRINGE IV PRN (14:21)
[2023-11-08] MEDS ORDERED: ePHEDrine sulfate 50 MG/ML AMP IV PRN (14:21)
[2023-11-08] MEDS: fentaNYL citrate PF 100 MCG/2 ML VIAL IV PRN (14:22)
--- NOTE | 2023-11-08 15:34 | Anesthesiology Progress Note ---
Date of Service November 08, 2023 Anesthesia Post Procedure Vital Signs Vital Signs: Temp Pulse Pulse Resp BP Pulse Ox O2 Del Method 11/08/23 15:30 65 19 142/82 H 99 Nasal Cannula 11/08/23 15:15 65 19 146/72 H 99 Nasal Cannula 11/08/23 15:00 67 17 167/82 H 98 Nasal Cannula 11/08/23 14:50 36.4 C L 67 18 152/79 H 98 Nasal Cannula 11/08/23 14:35 61 18 156/88 H 97 Nasal Cannula 11/08/23 14:25 58 L 18 151/79 H 98 Nasal Cannula 11/08/23 14:15 61 19 149/97 H 98 Nasal Cannula 11/08/23 14:05 61 20 143/75 H 96 Nasal Cannula 11/08/23 13:57 36.4 C L 66 20 129/71 93 Nasal Cannula 11/08/23 11:06 36.5 C 62 24 160/93 H 97 Nasal Cannula O2 Flow Rate 11/08/23 15:30 2 11/08/23 15:15 2 11/08/23 15:00 2 11/08/23 14:50 2 11/08/23 14:35 2 11/08/23 14:25 2 11/08/23 14:15 2 11/08/23 14:05 2 11/08/23 13:57 2 11/08/23 11:06 2 Pain Intensity Bilateral Generalized: Pain Intensity: 2 Transfer of Care Handoff Completed per policy Notes Mental Status: alert / awake / arousable and participated in evaluation Patient Amnestic to Procedure: Yes Nausea / Vomiting: adequately controlled Pain: adequately controlled Airway Patency, RR, SpO2: stable & adequate BP & HR: stable & adequate Hydration State: stable & adequate Anesthetic Complications: no major complications apparent and Pt Satisfied with anesthetic care Notes: pt to be admitted to medicine by dr vargas. they are to address the elevated potassium
--- NOTE | 2023-11-08 16:38 | History & Physical Report ---
Date of Service November 08, 2023 Assessment & Plan (1) Hyperkalemia: (2) ESRD on hemodialysis: Plan: Patient is 68 year old male with PMH ESRD on HD, chronic hypoxic respiratory failure, chronic systolic heart failure, recurrent pleural effusions, HTN, HLD, prediabetes, chronic anemia, history AV fistula thrombosis is s/p perm cath placement by Dr Viear. Labs today with noted K: 7.2. Nephrology recommended HD Nephrology consult. Going to have HD now Continue Veltassa Monitor BMP (3) Chronic hypoxic respiratory failure: (4) Chronic CHF: Plan: History recurrent pleural effusions Does not appear to have exacerbation Manage volume status with HD Continue supplemental oxygen (5) Hypertension: Plan: Continue amlodipine, metoprolol succinate, losartan, hydralazine, isosorbide (6) Anemia of chronic disease: Plan: Baseline Hgb 9-10 Monitor H&H (7) HLD (hyperlipidemia): Plan: Continue atorvastatin DVT Prophylaxis Heparin SQ Full Code as per discussion with pt Follows with Dr Starkey for routine care Pt was seen and care coordinated with Dr Glaser. See addendum I spent a total of 76 minutes reviewing notes, outpatient records, labs, medication, coordinating, documenting and providing care for this patient excluding time spent in the performance of separately billed services. History of Present Illness Chief Complaint: abnormal labs, needs HD Primary Care Provider: Cisco Starkey MD Patient is 68 year old male with PMH ESRD on HD, chronic hypoxic respiratory failure, chronic systolic heart failure, recurrent pleural effusions, HTN, HLD, prediabetes, chronic anemia presented to hospital today for procedure by Dr Viera. Patient with history of AV fistula thrombosis. Today for possible thrombectomy versus perm cath placement. Today had perm cath placement by Dr Viera. Labs today with noted K: 7.2. Nephrology recommended HD and admission. History obtained from patient, inpatient and outpatient chart review. Patient needs use of tube dispatcher service. Seen in PACU. Postop patient reports some pain at incision site. Denies fever/chills, N/V/D/C, GA, dizziness, CP, SOB, palpitations, cough, sore throat, abdominal pain, paresthesias, weakness, extremity edema. Allergies Allergy/AdvReac Type Severity Reaction Status Date / Time No Known Allergies Allergy Verified 11/08/23 10:57 Home Medications Medication Instructions Recorded Confirmed Type atorvastatin 40 mg tablet 40 mg PO HS #30 tabs 03/28/23 11/08/23 Rx hydralazine 100 mg tablet 100 mg PO TID #90 tabs 03/28/23 11/08/23 Rx losartan 50 mg tablet (Cozaar) 50 mg PO AMHS #30 tabs 03/28/23 11/08/23 Rx ergocalciferol (vitamin D2) 1,250 1,250 mcg PO WK 04/15/23 11/08/23 History mcg (50,000 unit) capsule (Vitamin D2) amlodipine 10 mg tablet 10 mg PO DAILY 06/12/23 11/08/23 History allopurinol 100 mg tablet 100 mg PO DAILY 08/28/23 11/08/23 History guaifenesin 600 mg tablet, 600 mg PO BID PRN Congestion 08/28/23 11/08/23 History extended release 12 hr (Mucinex) isosorbide dinitrate 20 mg tablet 20 mg PO TID 08/28/23 11/08/23 History ondansetron HCl 4 mg tablet 4 mg PO Q8H PRN NAUSEA/VOMITING 08/28/23 11/08/23 History patiromer calcium sorbitex 8.4 8.4 g PO Q OTHER DAY 08/28/23 11/08/23 History gram oral powder packet (Veltassa) protein supplement 30 ea PO BID 08/28/23 11/08/23 History vitamin B complex with vit C-folic 1 tab PO DAILY 08/28/23 11/08/23 History acid 800 mcg-zinc 12.5 mg tablet (RenaPlex) metoprolol succinate 50 mg 50 mg PO HS #30 tabs 08/31/23 11/08/23 Rx tablet,extended release 24 hr amino acid-protein hyd 16 gram-100 30 ml PO DIRECTED 10/05/23 11/08/23 History kcal/30 mL oral liq meter-dose pump (Liquacel) ferric citrate 210 mg iron tablet 420 mg PO TIDWMEAL 10/05/23 11/08/23 History (Auryxia) Past Med/Surg History Medical History HLD (hyperlipidemia) Chronic CHF Chronic hypoxic respiratory failure Hyperkalemia Mild aortic stenosis Pulmonary hypertension PASP 45 mmHg on 08/2023 echo Aortic ectasia Secondary hyperparathyroidism History of [place] (myocardial infarction) Heart valve disorder Paroxysmal atrial flutter Chronic respiratory failure CHF (congestive heart failure) EF 45-50% on 08/2023 echo Chest pain hx--not current issue SOB (shortness of breath) Anemia of chronic disease Pleural effusion chronic, recurrent ESRD (end stage renal disease) on dialysis HD patient follows w/ Dr Munson [facility]: M, W and F per [facility] RN notation. 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 AV fistula left arm Hypertension Restless leg syndrome Nephrolithiasis Benign prostatic hyperplasia with urinary obstruction Surgical History History of colonoscopy H/O inguinal hernia repair History of cystoscopy Status post creation of arteriovenous fistula left arm History of tooth extraction History of thoracentesis Family History Other No family history of adverse response to anesthesia No significant family history Social History Smoking Status: Never smoker Tobacco Type: Cigarettes Second Hand Exposure: No; Do You Dip or Chew Tobacco: No; Tobacco Cessation Education Requested by Patient: No Hx Alcohol Use: No Hx Substance Use: No Preferred Language: Beninese Communication Ability: Effective Communication Ability Comment: daughter speaks mauritanian well, pt will need tube dispatcher device Communication Tools: Language Line Director Of Environmental Services Director Of Environmental Services Required: Yes, Video and Voice Beliefs That Will Affect Care: None marital status: Current Living Situation: Spouse current occupational status: employed Other Information That Helps Us Care for You: No Assistive Devices: Oxygen - Continuous Review of Systems Review of Systems: All systems reviewed & are unremarkable except as noted in HPI & below Physical Exam Physical Exam: PE per Dr Glaser Results & Data Results & Data Vital Signs (Past 12 Hours) Vital Signs Temp Pulse Pulse Resp BP Pulse Ox O2 Del Method 11/08/23 15:30 65 19 142/82 H 99 Nasal Cannula 11/08/23 15:15 65 19 146/72 H 99 Nasal Cannula 11/08/23 15:00 67 17 167/82 H 98 Nasal Cannula 11/08/23 14:50 36.4 C L 67 18 152/79 H 98 Nasal Cannula 11/08/23 14:35 61 18 156/88 H 97 Nasal Cannula 11/08/23 14:25 58 L 18 151/79 H 98 Nasal Cannula 11/08/23 14:15 61 19 149/97 H 98 Nasal Cannula 11/08/23 14:05 61 20 143/75 H 96 Nasal Cannula 11/08/23 13:57 36.4 C L 66 20 129/71 93 Nasal Cannula 11/08/23 11:06 36.5 C 62 24 160/93 H 97 Nasal Cannula O2 Flow Rate 11/08/23 15:30 2 11/08/23 15:15 2 11/08/23 15:00 2 11/08/23 14:50 2 11/08/23 14:35 2 11/08/23 14:25 2 11/08/23 14:15 2 11/08/23 14:05 2 11/08/23 13:57 2 11/08/23 11:06 2 Laboratory Results BMP 11/08/23 11:45 Sodium 138 Potassium 7.2 H* Chloride 101 Carbon Dioxide 17 L BUN 177 H Creatinine 16.75 H* Glucose 87 Calcium 9.6 Supervising Physician Co-Signing Physician Notes I have seen and discussed the case with the collaborating advanced practitioner. I agree with the above H&P. I have reviewed and confirmed the patients medical history, the findings on physical examination, and the patients diagnosis and treatment plan with Malachi GUERRERO and agree with the information documented. Mr. De La Rosa is a 68 year old Beninese speaking gentleman with past medical history of end-stage renal disease on hemodialysis, chronic systolic heart failure, recurrent pleural effusion who was to undergo thrombectomy today with Vascular, however is now status post permcath 2/2 HD needed iso hyperkalemia. K was 7.2 on labs. Patient evaluated in PACU. Denies any acute concerns. States the site of the cath was tender, but otherwise in usual state of health. Beninese Director Of Environmental Services Ipad at bedside. GENERAL APPEARANCE: AxOx4, no acute distress. HEENT: NC, AT. MMM. EOMI, clear conjunctiva, oropharynx clear. NECK: Supple without lymphadenopathy. No stiffness or restricted ROM. Right permacath in place HEART: Normal rate and regular rhythm, JESUS++ LUNGS: CTAB, moving air well. No crackles or wheezes are heard. ABDOMEN: Soft, nontender, nondistended with good bowel sounds heard. EXTREMITIES: Without cyanosis, clubbing or edema. NEUROLOGICAL: Grossly nonfocal. Alert and oriented, moving all 4 extremities. CN not formally tested but appear grossly intact. Skin: Warm and dry without any rash. #ESRD on HD MWF Potassium resulted at 7.2, permcath for dialysis placed, no thrombectomy. Plan for HD with Nephrology [facility] EOD Rest of plan as above I spent a total of 25 minutes coordinating, documenting, and providing care for this patient excluding time spent in the performance of separately billed services. All of the aforementioned completed outside of collaborating with the assigned advanced practitioner for a full treatment plan. I have reviewed the advanced practitioner's documentation, and I agree with, and take responsibility for the plan of care
--- NOTE | 2023-11-08 19:37 | Electrocardiogram Report ---
Test Reason : Blood Pressure : / mmHG Vent. Rate : 057 BPM Atrial Rate : 057 BPM P-R Int : 198 ms QRS Dur : 104 ms QT Int : 450 ms P-R-T Axes : 068 -04 126 degrees QTc Int : 438 ms Sinus bradycardia with sinus arrhythmia Abnormal ECG When compared with ECG of 05-OCT-2023 13:10, Aberrant conduction is no longer Present Vent. rate has decreased BY 38 BPM Nonspecific T wave abnormality, improved in Inferior leads Confirmed by Prabhu Abrams ([id number]) on 11/08/2023 7:37:02 PM Referred By: Enrique Viera Confirmed By:Juancho Abrams
[2023-11-08] MEDS ORDERED: ACETAMINOPHEN 325 MG TAB PO PRN (20:19)
[2023-11-08] MEDS ORDERED: POLYETHYLENE (MIRALAX) 17 GM PACK PO PRN (20:19)
[2023-11-08] MEDS ORDERED: oxyCODONE HCL IR 5 MG TAB (IMMEDIATE RELEASE) PO PRN (20:19)
[2023-11-08] MEDS: DEXTROSE 50% 50 ML SYRINGE IV ONE (20:24)
[2023-11-08] MEDS: HEPARIN (PORCINE) 1000 UNIT/ML 10 ML (CATH LAB USE ONLY) ONE (20:24)
[2023-11-08] MEDS: NovoLIN-R INSULIN PER UNIT CHARGE ONE (20:24)
[2023-11-08] MEDS: fentaNYL citrate PF 100 MCG/2 ML VIAL ONE (20:25)
[2023-11-08] MEDS ORDERED: NON-FORMULARY MEDICATION (Protein Supplement Liquid) PO SCH (21:00)
[2023-11-08] MEDS: ATORVASTATIN 40 MG TAB PO SCH (21:55)
[2023-11-08] MEDS: hydrALAZINE TAB 50 MG TAB PO SCH (21:55)
[2023-11-08] MEDS: ISOSORBIDE DINITRATE 20 MG TAB PO SCH (21:56)
[2023-11-08] MEDS: HEPARIN SOD 5,000 UNIT/0.5 ML VIAL SQ SCH (21:56)
[2023-11-08] MEDS: LOSARTAN POTASSIUM 50 MG TAB PO SCH (21:56)
[2023-11-08] MEDS: METOPROLOL SUCC 50MG EXT REL TAB PO SCH (21:57)
[2023-11-09 07:15] LABS: Hematocrit (blood only) 26.7 % (42.0-52.0); Hemoglobin 8.2 g/dl (14.0-18.0); Mean Corpuscular Hemoglobin 27.1 pg (25.0-34.0); Mean Corpuscular Hgb Conc 30.7 g/dL (32.0-36.0); Mean Corpuscular Volume 88.1 fL (80.0-100.0); Mean Platelet Volume 10.8 fL (9.4-12.4); Platelet Count 297 K/uL (130-400); RDW Coefficient of Variation 18.5 % (11.5-14.5); RDW Standard Deviation 58.7 fL (36.4-46.3); Red Blood Count 3.03 M/uL (4.70-6.10); White Blood Count 13.35 K/ul (4.8-10.8)
[2023-11-09 07:51] LABS: Calcium 8.7 mg/dl (8.6-10.3); Magnesium 2.1 mg/dl (1.7-2.4); Potassium 5.7 mmol/L (3.5-5.1)
[2023-11-09 08:02] LABS: BUN Creatinine Ratio 8.6 (10-20); Creatinine Clr Calc Pharmacy 6.8 ml/min; Est GFR (African American) 5.5 ml/min; Est GFR (Non-African American) 4.8 ml/min; Phosphorus 5.9 mg/dl (2.5-4.9)
[2023-11-09] MEDS: NEPHROCAPS PO SCH (08:19)
[2023-11-09] MEDS: amLODIPine BESYLATE 5 MG TAB PO SCH (08:19)
[2023-11-09] MEDS: allopurinoL 100 MG TAB PO SCH (08:19)
[2023-11-09] MEDS ORDERED: SODIUM CHLORIDE 0.9% 1,000 ML IV PRN (09:06)
--- NOTE | 2023-11-09 09:10 | Nephrology Consultation ---
Date of Consultation November 09, 2023 Assessment & Plan (1) ESRD (end stage renal disease) on dialysis: (2) Hemodialysis AV fistula thrombosis: (3) Chronic CHF: Plan Patient is ESRD without residual renal function. Last Dialysis was monday and he cannot go that many days without dialysis So high K of 7.2 was expected. had dialysis late afternoon for 3 hrs and now ks is 5.7. will do again today for 3.5 hrs and take 2.5 --3kilo. After that he can be discharged and continue Outpt dialysis per schedule--next HD outpt on monday. CVC fine. Unfortunately AVF could not be Salvaged and I spoke with Dr Viera and he said it is not salvageable. History of Present Illness Reason for Consultation: ESRD n dialysis Attending Physician: Alyse Baxter MD History of Present Illness 68/[facility], chronic systolic heart failure, recurrent pleural effusions presented to hospital today for procedure by Dr Viera. Patient with history of AV fistula thrombosis. has not had dialysis Since Monday. AVF not salvaged. Then had perm cath placement by Dr Viera. Labs with K: 7.2. Nephrology recommended HD and admission. he had 3 hrs of dialysis yesterday. K still 5.7 this AM. History obtained from patient, inpatient and outpatient chart review. Patient needs use of fiscal economist service. Postop patient reports some pain at incision site. Denies fever/chills, N/V/D/C, GA, dizziness, CP, SOB, palpitations, cough, sore throat, abdominal pain, paresthesias, weakness, extremity edema. ROS--12 Systems reviewed and negative Physical Exam Physical Exam: General exam: Appears comfortable, no acute distress HEENT: Pupils are equal and reactive to light Neck: No JVD, neck is supple trachea is midline Respiratory system: Clear breath sounds bilaterally. Gastrointestinal: Abdomen is soft, non distended, non tender, bowel sounds are present CVS: Regular rate and rhythm. No murmurs, rubs or gallops Musculoskeletal: No joint or muscle tenderness Extremities: Non tender, no edema, peripheral pulses are present Neuro: Oriented, no tremors, no focal neurological deficits Skin: No rashes Allergies Allergy/AdvReac Type Severity Reaction Status Date / Time No Known Allergies Allergy Verified 11/08/23 10:57 Home Medications Medication Instructions Recorded Confirmed Type atorvastatin 40 mg tablet 40 mg PO HS #30 tabs 03/28/23 11/08/23 Rx hydralazine 100 mg tablet 100 mg PO TID #90 tabs 03/28/23 11/08/23 Rx losartan 50 mg tablet (Cozaar) 50 mg PO AMHS #30 tabs 03/28/23 11/08/23 Rx ergocalciferol (vitamin D2) 1,250 1,250 mcg PO WK 04/15/23 11/08/23 History mcg (50,000 unit) capsule (Vitamin D2) amlodipine 10 mg tablet 10 mg PO DAILY 06/12/23 11/08/23 History allopurinol 100 mg tablet 100 mg PO DAILY 08/28/23 11/08/23 History guaifenesin 600 mg tablet, 600 mg PO BID PRN Congestion 08/28/23 11/08/23 History extended release 12 hr (Mucinex) isosorbide dinitrate 20 mg tablet 20 mg PO TID 08/28/23 11/08/23 History ondansetron HCl 4 mg tablet 4 mg PO Q8H PRN NAUSEA/VOMITING 08/28/23 11/08/23 History patiromer calcium sorbitex 8.4 8.4 g PO Q OTHER DAY 08/28/23 11/08/23 History gram oral powder packet (Veltassa) protein supplement 30 ea PO BID 08/28/23 11/08/23 History vitamin B complex with vit C-folic 1 tab PO DAILY 08/28/23 11/08/23 History acid 800 mcg-zinc 12.5 mg tablet (RenaPlex) metoprolol succinate 50 mg 50 mg PO HS #30 tabs 08/31/23 11/08/23 Rx tablet,extended release 24 hr amino acid-protein hyd 16 gram-100 30 ml PO DIRECTED 10/05/23 11/08/23 History kcal/30 mL oral liq meter-dose pump (Liquacel) ferric citrate 210 mg iron tablet 420 mg PO TIDWMEAL 10/05/23 11/08/23 History (Auryxia) Patient History Medical History HLD (hyperlipidemia) Chronic CHF Chronic hypoxic respiratory failure Hyperkalemia Mild aortic stenosis Pulmonary hypertension PASP 45 mmHg on 08/2023 echo Aortic ectasia Secondary hyperparathyroidism History of [place] (myocardial infarction) Heart valve disorder Paroxysmal atrial flutter Chronic respiratory failure CHF (congestive heart failure) EF 45-50% on 08/2023 echo Chest pain hx--not current issue SOB (shortness of breath) Anemia of chronic disease Pleural effusion chronic, recurrent ESRD (end stage renal disease) on dialysis HD patient follows w/ Dr Munson [facility]: M, W and F per [facility] notation. 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 AV fistula left arm Hypertension Restless leg syndrome Nephrolithiasis Benign prostatic hyperplasia with urinary obstruction Surgical History History of colonoscopy H/O inguinal hernia repair History of cystoscopy Status post creation of arteriovenous fistula left arm History of tooth extraction History of thoracentesis Family History Other No family history of adverse response to anesthesia No significant family history Social History Smoking Status: Never smoker Tobacco Type: Cigarettes Second Hand Exposure: No; Do You Dip or Chew Tobacco: No; Tobacco Cessation Education Requested by Patient: No Hx Alcohol Use: No Hx Substance Use: No Preferred Language: Northern Irish Communication Ability: Effective Communication Ability Comment: daughter speaks georgian well, pt will need fiscal economist device Communication Tools: Language Line Erp Implementation Consultant Erp Implementation Consultant Required: Yes, Video and Voice Beliefs That Will Affect Care: None marital status: Current Living Situation: Spouse current occupational status: employed Other Information That Helps Us Care for You: No Assistive Devices: Oxygen - Continuous Results & Data Vital Signs (Past 12 Hours) Vital Signs Temp Pulse Pulse Pulse Resp BP Pulse Ox 11/09/23 07:36 36.7 C 49 L 18 151/74 H 98 11/09/23 04:00 36.7 C 58 L 18 147/73 H 99 11/09/23 01:47 57 L 11/09/23 00:13 65 11/09/23 00:13 11/09/23 00:00 36.7 C 62 18 150/63 H 99 O2 Del Method O2 Flow Rate 11/09/23 07:36 Nasal Cannula 2 11/09/23 04:00 Nasal Cannula 2 11/09/23 01:47 11/09/23 00:13 11/09/23 00:13 Nasal Cannula 2 11/09/23 00:00 Nasal Cannula 2
--- NOTE | 2023-11-09 10:28 | Discharge Summary ---
Discharge Summary Date of Service November 09, 2023 Notes For Next Care Provider Please ensure Nephrology follow up Please encourage adherence to dialysis schedule Medication Changes From Visit None Admission HPI Per Admitting Provider Patient is 68 year old male with PMH ESRD on HD, chronic hypoxic respiratory failure, chronic systolic heart failure, recurrent pleural effusions, HTN, HLD, prediabetes, chronic anemia presented to hospital today for procedure by Dr Viera. Patient with history of AV fistula thrombosis. Today for possible thrombectomy versus perm cath placement. Today had perm cath placement by Dr Viera. Labs today with noted K: 7.2. Nephrology recommended HD and admission. History obtained from patient, inpatient and outpatient chart review. Patient needs use of electrical mechanic service. Seen in PACU. Postop patient reports some pain at incision site. Denies fever/chills, N/V/D/C, GA, dizziness, CP, SOB, palpitations, cough, sore throat, abdominal pain, paresthesias, weakness, extremity edema. Admission Exam Per Admitting Provider GENERAL APPEARANCE: AxOx4, no acute distress. HEENT: NC, AT. MMM. EOMI, clear conjunctiva, oropharynx clear. NECK: Supple without lymphadenopathy. No stiffness or restricted ROM. Right permacath in place HEART: Normal rate and regular rhythm, JESUS++ LUNGS: CTAB, moving air well. No crackles or wheezes are heard. ABDOMEN: Soft, nontender, nondistended with good bowel sounds heard. EXTREMITIES: Without cyanosis, clubbing or edema. NEUROLOGICAL: Grossly nonfocal. Alert and oriented, moving all 4 extremities. CN not formally tested but appear grossly intact. Skin: Warm and dry without any rash. Principal Dx & Hospital Course #1 = Principal Diagnosis (1) Hyperkalemia: (2) ESRD on hemodialysis: (3) Chronic hypoxic respiratory failure: (4) Chronic CHF: (5) Hypertension: (6) Anemia of chronic disease: (7) HLD (hyperlipidemia): Plan Patient is a 68 year old male with PMHx significant for ESRD on HD, chronic hypoxic respiratory failure, chronic systolic heart failure, recurrent pleural effusions, HTN, HLD, prediabetes, chronic anemia, history AV fistula thrombosis who is s/p perm cath placement by Vascular surgery, Dr Viera. Sent in for concerning labs by outpt provider. Hyperkalemia ESRD on hemodialysis Labs on admission with noted K: 7.2, Cr 16 Continued home [facility] consulted on admission- recommended immediate hemodialysis. -noted that pt missed a dialysis session, went too long without dialysis -had dialysis on 11/07 for 3 hrs, K of 5.7 with AM labs -repeat dialysis session on 11/08, and per nephrology "he can be discharged and continue Outpt dialysis per schedule--next HD outpt on monday" -unfortunately AVF could not be salvaged Close Nephrology follow up after discharge Adherence to dialysis schedule encouraged Chronic hypoxic respiratory failure Chronic CHF History recurrent pleural effusions Does not appear to have exacerbation Manage volume status with HD Continue supplemental oxygen Hypertension Continue amlodipine, metoprolol succinate, losartan, hydralazine, isosorbide Anemia of chronic disease Baseline Hgb 9-10 Monitor H&H HLD (hyperlipidemia) Continue atorvastatin Diet: Renal Dialysis DVT Prophylaxis: Heparin SQ Dispo: Home Discharge Exam General: Alert. No acute distress Skin: No noted rashes or bruises Psych: Appropriate mood and affect Neuro: No gross deficits laying in bed HEENT: NC/AT CV: RRR, + murmur Resp: Breath sounds clear bilaterally, no increased effort of breathing. Abdomen: Soft, nontender, nondistended. Extremities: No edema in lower extremities bilaterally. Updated Medication List Medication Instructions Recorded Confirmed Type atorvastatin 40 mg tablet 40 mg PO HS #30 tabs 03/28/23 11/08/23 Rx hydralazine 100 mg tablet 100 mg PO TID #90 tabs 03/28/23 11/08/23 Rx losartan 50 mg tablet (Cozaar) 50 mg PO AMHS #30 tabs 03/28/23 11/08/23 Rx ergocalciferol (vitamin D2) 1,250 1,250 mcg PO WK 04/15/23 11/08/23 History mcg (50,000 unit) capsule (Vitamin D2) amlodipine 10 mg tablet 10 mg PO DAILY 06/12/23 11/08/23 History allopurinol 100 mg tablet 100 mg PO DAILY 08/28/23 11/08/23 History guaifenesin 600 mg tablet, 600 mg PO BID PRN Congestion 08/28/23 11/08/23 History extended release 12 hr (Mucinex) isosorbide dinitrate 20 mg tablet 20 mg PO TID 08/28/23 11/08/23 History ondansetron HCl 4 mg tablet 4 mg PO Q8H PRN NAUSEA/VOMITING 08/28/23 11/08/23 History patiromer calcium sorbitex 8.4 8.4 g PO Q OTHER DAY 08/28/23 11/08/23 History gram oral powder packet (Veltassa) protein supplement 30 ea PO BID 08/28/23 11/08/23 History vitamin B complex with vit C-folic 1 tab PO DAILY 08/28/23 11/08/23 History acid 800 mcg-zinc 12.5 mg tablet (RenaPlex) metoprolol succinate 50 mg 50 mg PO HS #30 tabs 08/31/23 11/08/23 Rx tablet,extended release 24 hr amino acid-protein hyd 16 gram-100 30 ml PO DIRECTED 10/05/23 11/08/23 History kcal/30 mL oral liq meter-dose pump (Liquacel) ferric citrate 210 mg iron tablet 420 mg PO TIDWMEAL 10/05/23 11/08/23 History (Auryxia) Hospital Stay Data Consultations 11/08/23 15:28 Consult Nephrology Routine Procedures Performed Operation Date: 11/08/23 12:00 Actual Procedures p Perm Catheter Placement, Right Internal Jugular Approach, Ultrasound Localization of Right Internal Jugular Vein, Fluoroscopy for Positioning(Right) - Enrique Viera MD Diagnostic Imagining Performed 11/08/23 12:56 EV cvc insrt tunnel wo prt/valet manager Routine US EV guide vascular access Routine Discharge Instructions Given to Patient (Per Discharging Provider) Mr. De La Rosa, You were admitted per the recommendations of Nephrology for needed dialysis. Your potassium levels were very high as a result. You had dialysis yesterday and today and your potassium levels have decreased. Your hotel lobby concierge has indicated that you can be discharged home to follow up with your regular dialysis schedule, next on Monday. Continue taking your Veltassa medication at home. Please keep your dialysis sessions and please keep close follow up with your hotel lobby concierge. Please keep close follow up with your primary care provider as well after discharge. Please do not hesitate to come back to the emergency room if your symptoms worsen or return. It was a pleasure taking care of you while you were here. Total Time Total Time Spent Total Time Spent (In Minutes): > 30 minutes
[2023-11-09] MEDS: INSULIN HUMAN REGULAR PER UNIT 10 UNITS in SYRINGE 0 ML IV STA (10:36)
[2023-11-09] MEDS: DEXTROSE 50% 50 ML SYRINGE IV STA (10:36)
[2023-11-09] MEDS: EPOETIN ALFA 20,000 UNITS/ML VIAL IV ONE (12:35)
[2023-11-10] MEDS ORDERED: PATIROMER CALCIUM SORBITEX 8.4 GM PACK PO SCH (09:00)
== END 2023-11-09 17:57 | disposition home or self-care (01) | DRG 314 ==
LOC: ASU 10:18 → 2N 14:42 → SUATTDRO 14:42

== ENCOUNTER 2023-12-04 12:21 | Inpatient (IN) ==
--- NOTE | 2023-12-04 13:00 | Emergency Department Note ---
History of Present Illness General Chief complaint: Weakness Stated complaint: WEAKNESS Time Seen by Provider: 12/04/23 12:59 History of Present Illness This is a 68-year-old male that presents to the emergency department via EMS with complaints of "shortness of breath". The patient states he received dialysis Monday, Monday and Monday. Last dialysis session was on Monday. He notes over the past 4 days increasing shortness of breath. He uses 1-1.5 L of oxygen at baseline. Today while arriving at dialysis was noted to be short of breath therefore EMS was summoned and he was brought here. In addition to the shortness of breath he also notes swelling to the right arm which is new over the past few days as well as pain in the thumb and middle finger. He questions perhaps it could be gout but denies any history of gout. The patient denies any trauma or injury. No fevers or recent illness. The patient was noted by EMS to have a higher oxygen requirement at baseline requiring about 4 L now to maintain normal O2 sats. Reportedly the patient was 84% on 1.5 L while at dialysis which is the patient's baseline oxygen requirement. Initially patient utilize his phone to interpret our conversation but I did offer formal iPad cloth brushing and sueding supervisor service which was utilized. Home Medications Medication Instructions Recorded Confirmed Type atorvastatin 40 mg tablet 40 mg PO HS #30 tabs 03/28/23 12/04/23 Rx hydralazine 100 mg tablet 100 mg PO TID #90 tabs 03/28/23 12/04/23 Rx losartan 50 mg tablet (Cozaar) 50 mg PO AMHS #30 tabs 03/28/23 12/04/23 Rx ergocalciferol (vitamin D2) 1,250 1,250 mcg PO WK 04/15/23 12/04/23 History mcg (50,000 unit) capsule (Vitamin D2) amlodipine 10 mg tablet 10 mg PO DAILY 06/12/23 12/04/23 History allopurinol 100 mg tablet 100 mg PO DAILY 08/28/23 12/04/23 History guaifenesin 600 mg tablet, 600 mg PO BID PRN Congestion 08/28/23 12/04/23 History extended release 12 hr (Mucinex) isosorbide dinitrate 20 mg tablet 20 mg PO TID 08/28/23 12/04/23 History ondansetron HCl 4 mg tablet 4 mg PO Q8H PRN NAUSEA/VOMITING 08/28/23 12/04/23 History patiromer calcium sorbitex 8.4 8.4 g PO Q OTHER DAY 08/28/23 12/04/23 History gram oral powder packet (Veltassa) protein supplement 30 ea PO BID 08/28/23 12/04/23 History vitamin B complex with vit C-folic 1 tab PO DAILY 08/28/23 12/04/23 History acid 800 mcg-zinc 12.5 mg tablet (RenaPlex) metoprolol succinate 50 mg 50 mg PO HS #30 tabs 08/31/23 12/04/23 Rx tablet,extended release 24 hr amino acid-protein hyd 16 gram-100 30 ml PO DIRECTED 10/05/23 12/04/23 History kcal/30 mL oral liq meter-dose pump (Liquacel) ferric citrate 210 mg iron tablet 420 mg PO TIDWMEAL 10/05/23 12/04/23 History (Auryxia) Allergies Allergy/AdvReac Type Severity Reaction Status Date / Time No Known Allergies Allergy Verified 12/04/23 15:57 Past Med/Surg History Medical History HLD (hyperlipidemia) Chronic CHF Chronic hypoxic respiratory failure Hyperkalemia Mild aortic stenosis Pulmonary hypertension PASP 45 mmHg on 08/2023 echo Aortic ectasia Secondary hyperparathyroidism History of [place] (myocardial infarction) Heart valve disorder Paroxysmal atrial flutter Chronic respiratory failure CHF (congestive heart failure) EF 45-50% on 08/2023 echo Chest pain hx--not current issue SOB (shortness of breath) Anemia of chronic disease Pleural effusion chronic, recurrent ESRD (end stage renal disease) on dialysis HD patient follows w/ Dr Munson [facility]: M, W and F per [facility] RN notation. 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 AV fistula left arm Hypertension Restless leg syndrome Nephrolithiasis Benign prostatic hyperplasia with urinary obstruction Surgical History History of colonoscopy H/O inguinal hernia repair History of cystoscopy Status post creation of arteriovenous fistula left arm History of tooth extraction History of thoracentesis Family History Other No family history of adverse response to anesthesia No significant family history Social History Smoking Status: Never smoker Tobacco Type: Cigarettes Second Hand Exposure: No; Do You Dip or Chew Tobacco: No; Hx Alcohol Use: No Hx Substance Use: No Preferred Language: Tanzanian Communication Ability: Effective Communication Ability Comment: daughter speaks uzbek well, pt will need cloth brushing and sueding supervisor device Communication Tools: IPad Candle Wrapper Required: No Beliefs That Will Affect Care: None marital status: Current Living Situation: Spouse current occupational status: employed Other Information That Helps Us Care for You: No Feels Safe at Home: Yes Safety Concerns: Feels Safe At This Time Assistive Devices: Glasses and Oxygen - Continuous Review of Systems A total of 10 systems reviewed and were otherwise negative Physical Exam Vital Signs Vital Signs - 24 hr 12/04/23 12:43 12/04/23 13:02 12/04/23 13:30 Temperature 36.7 C Temperature Source Oral Pulse Rate 104 H 102 H 108 H Pulse Rate [Apical] Pulse Rate from SpO2 Sensor 94 H 101 H Respiratory Rate 22 27 H 28 H Respiratory Effort / Characteristics Non-Labored Spontaneous Respiratory Depth Normal Blood Pressure 139/97 Blood Pressure [Right Arm] Blood Pressure Mean 111 Blood Pressure Mean [Right Arm] Pulse Oximetry 97 98 94 Oxygen Delivery Method Nasal Cannula Oxygen Flow Rate 3 Sepsis Recent Fever Within 48 Hours No Sepsis New/Unexplained Change in Mental Status No Sepsis Action Taken by Nursing No Action Required 12/04/23 13:47 12/04/23 14:00 12/04/23 14:05 Temperature Temperature Source Pulse Rate 106 H 100 H Pulse Rate [Apical] Pulse Rate from SpO2 Sensor Respiratory Rate 5 L Respiratory Effort / Characteristics Respiratory Depth Blood Pressure 154/92 H Blood Pressure [Right Arm] Blood Pressure Mean 118 Blood Pressure Mean [Right Arm] Pulse Oximetry Oxygen Delivery Method Oxygen Flow Rate Sepsis Recent Fever Within 48 Hours Sepsis New/Unexplained Change in Mental Status Sepsis Action Taken by Nursing 12/04/23 14:05 12/04/23 14:30 12/04/23 15:26 Temperature Temperature Source Pulse Rate 94 H 109 H 100 H Pulse Rate [Apical] Pulse Rate from SpO2 Sensor 95 H 103 H Respiratory Rate 22 11 L 20 Respiratory Effort / Characteristics Respiratory Depth Blood Pressure Blood Pressure [Right Arm] Blood Pressure Mean Blood Pressure Mean [Right Arm] Pulse Oximetry 95 91 Oxygen Delivery Method Oxygen Flow Rate Sepsis Recent Fever Within 48 Hours Sepsis New/Unexplained Change in Mental Status Sepsis Action Taken by Nursing 12/04/23 15:27 12/04/23 15:27 12/04/23 15:28 Temperature Temperature Source Pulse Rate 104 H Pulse Rate [Apical] Pulse Rate from SpO2 Sensor 99 H Respiratory Rate 24 Respiratory Effort / Characteristics Respiratory Depth Blood Pressure 109/88 Blood Pressure [Right Arm] Blood Pressure Mean 92 Blood Pressure Mean [Right Arm] Pulse Oximetry 90 Oxygen Delivery Method Nasal Cannula Oxygen Flow Rate 1.5 Sepsis Recent Fever Within 48 Hours Sepsis New/Unexplained Change in Mental Status Sepsis Action Taken by Nursing 12/04/23 15:29 12/04/23 15:30 12/04/23 16:00 Temperature 36.8 C Temperature Source Oral Pulse Rate 102 H 101 H Pulse Rate [Apical] 103 H Pulse Rate from SpO2 Sensor 106 H 106 H Respiratory Rate 20 19 19 Respiratory Effort / Characteristics Non-Labored Spontaneous Respiratory Depth Normal Blood Pressure Blood Pressure [Right Arm] 109/88 Blood Pressure Mean Blood Pressure Mean [Right Arm] 95 Pulse Oximetry 90 Oxygen Delivery Method Nasal Cannula Oxygen Flow Rate 1.5 Sepsis Recent Fever Within 48 Hours Sepsis New/Unexplained Change in Mental Status Sepsis Action Taken by Nursing VITAL SIGNS - Vital signs and nursing notes were reviewed. On supplemental o2, mildly tachycardic now. GENERAL - 68-year-old male appearing his stated age who is in no acute distress. Communicates well with provider and answers questions appropriately. SKIN - Without rashes. RUE edema noted. No open wounds. IV in placed in RUE. Access point to R chest wall noted. L arm fistula noted. HEAD - NC/AT. EYES - PERRL with EOMI bilaterally. EARS - No deformities of external structures noted on gross examination bilaterally NOSE - Midline and without cyanosis. No epistaxis or purulent drainage noted. MOUTH/OROPHARYNX - Without perioral cyanosis. NECK - Neck with FROM. No nuchal rigidity. LUNGS - Chest wall symmetric without accessory muscle use, intercostals retractions, or central cyanosis. Normal vesicular breath sounds CTA B/L. No wheezes, rales, or rhonchi appreciated. CARDIAC - RRR ABDOMEN - Abdominal contour without pulsations or visible masses. BS normoactive all four quadrants. No tenderness, palpable masses, hepatosplenomegaly, or ascites noted. EXTREMITIES - No clubbing or peripheral cyanosis. RUE edema noted from hand/fingers proximally. +5/5 strength noted in UE/LE bilaterally. NEUROLOGIC - Cranial nerves grossly intact. PSYCH -alert, oriented and pleasant on exam Course Administered Medications Atorvastatin Calcium (Atorvastatin 40 Mg Tab) 40 mg PO HS [facility] Stop: 01/03/24 20:59 Last Admin: 12/04/23 21:26 Dose: 40 mg Documented By: MICHELLE Ergocalciferol (Ergocalciferol 1250 Mcg (50,000 Units) Cap) 1,250 mcg PO Mo@0900 [facility] Stop: 01/03/24 18:28 Last Admin: 12/04/23 21:26 Dose: 1,250 mcg Documented By: MICHELLE Guaifenesin (Guaifenesin 600 Mg Tabcr) 600 mg PO BID [facility] Stop: 01/03/24 20:59 Last Admin: 12/04/23 21:26 Dose: 600 mg Documented By: MICHELLE Heparin Sodium (Porcine) (Heparin Sod 5,000 Unit/0.5 Ml Vial) 5,000 units SQ Q8 [facility] Stop: 01/03/24 21:59 Last Admin: 12/04/23 21:27 Dose: 5,000 units Documented By: MICHELLE Azithromycin 500 mg/ Dextrose 255 mls @ 125 mls/hr IV Q24H [facility] Stop: 12/08/23 21:03 Last Infusion: 12/04/23 21:03 Dose: Infused Documented By: Admin: 12/04/23 19:00 Dose: 125 mls/hr Documented By: GEOVANNY Cefepime HCl 1,000 mg/ Syringe 10 mls @ 5 mls/min IV Q24H [facility]; Protocol Stop: 12/11/23 18:59 Last Admin: 12/04/23 19:00 Dose: 5 mls/min Documented By: GEOVANNY Metoprolol Succinate (Metoprolol Succ 50mg Ext Rel Tab) 50 mg PO HS [facility] Stop: 01/03/24 20:59 Last Admin: 12/04/23 21:26 Dose: 50 mg Documented By: MICHELLE Miscellaneous (Ferric Citrate [Auryxia] 210 Mg Iron Tablet Order Awaiting Action) 1 each N/A QS [facility] Stop: 01/04/24 00:00 Last Admin: 12/05/23 00:26 Dose: Not Given Documented By: [facility] Medical Decision Making Laboratory Data 12/04/23 14:24 12/04/23 14:24 Lab Results 12/04/23 12/04/23 12/04/23 Range/Units 12:36 14:24 14:25 WBC 13.94 H (4.8-10.8) K/ul RBC 3.34 L (4.70-6.10) M/uL Hgb 8.9 L (14.0-18.0) g/dl Hct 28.1 L (42.0-52.0) % MCV 84.1 (80.0-100.0) fL MCH 26.6 (25.0-34.0) pg MCHC 31.7 L (32.0-36.0) g/dL RDW Std Deviation 58.4 H (36.4-46.3) fL RDW Coeff of Diamond 19.0 H (11.5-14.5) % Plt Count 305 (130-400) K/uL MPV 11.3 (9.4-12.4) fL Immature Gran % (Auto) 0.6 % Neut % (Auto) 84.0 % Lymph % (Auto) 5.8 % Coffee % (Auto) 9.0 % Eos % (Auto) 0.3 % Baso % (Auto) 0.3 % Neut # (Auto) 11.70 H (1.40-6.50) K/uL Lymph # (Auto) 0.81 L (1.20-3.40) K/uL Coffee # (Auto) 1.26 H (0.11-0.59) K/uL Eos # (Auto) 0.04 (0.00-0.50) K/uL Baso # (Auto) 0.04 (0.00-0.20) K/uL Immature Gran # (Auto) 0.09 (0.01-0.20) K/uL PT 11.6 (9.0-12.0) Seconds INR 1.1 (0.9-1.1) APTT 33 H (21-31) Seconds PTT Ratio 1.2 Sodium 141 (136-145) mmol/L Potassium 4.3 (3.5-5.1) mmol/L Chloride 101 (98-107) mmol/L Carbon Dioxide 28 (21-32) mmol/L Anion Gap 12 H (3-11) BUN 60 H (6-23) mg/dl Creatinine 9.89 H* (0.6-1.4) mg/dl Est Cr Clr Drug Dosing 7.2 ml/min Est GFR ( Amer) 5.5 ml/min Est GFR (Non-Af Amer) 4.8 ml/min BUN/Creatinine Ratio 6.1 L (10-20) Glucose 82 (70-99(Fasting)) mg/dl Calcium 8.7 (8.6-10.3) mg/dl Magnesium 2.1 (1.7-2.4) mg/dl Total Bilirubin 0.6 (0.2-1.0) mg/dl AST 21 (13-39) U/L ALT 26 (7-52) U/L Alkaline Phosphatase 52 (34-104) U/L Troponin I High Sens 663.2 H* (0-20) pg/ml Total Protein 5.8 L (6.0-8.3) gm/dl Albumin 3.1 L (3.4-5.0) gm/dl Globulin 2.7 (2.5-4.0) gm/dl Albumin/Globulin Ratio 1.1 (0.9-2) Procalcitonin 1.89 H (0-0.5) ng/ml Adenovirus (PCR) Not Detected (NotDetected) B. pertussis DNA (PCR) Not Detected (NotDetected) B.parapertussis DNA PCR Not Detected (NotDetected) C. pneumoniae DNA (PCR) Not Detected (NotDetected) Coronavirus OC43 (PCR) Not Detected (NotDetected) Coronavirus HKU1 (PCR) Not Detected (NotDetected) Coronavirus 229E (PCR) Not Detected (NotDetected) SARS-CoV-2 (PCR) Not Detected (NotDetected) Coronavirus NL63 (PCR) Not Detected (NotDetected) Human Metapneumovir PCR Not Detected (NotDetected) Influenza Type A (PCR) Not Detected (NotDetected) Influenza Type B (PCR) Not Detected (NotDetected) M. pneumoniae (PCR) Not Detected (NotDetected) Parainfluenza 1 (PCR) Not Detected (NotDetected) Parainfluenza 2 (PCR) Not Detected (NotDetected) Parainfluenza 3 (PCR) DETECTED A (NotDetected) Parainfluenza 4 (PCR) Not Detected (NotDetected) RSV (PCR) Not Detected (NotDetected) Entero/Rhino (PCR) Not Detected (NotDetected) Imaging Data Radiologist's Impression: Chest X-Ray 12/04/23 13:21 SINGLE VIEW CHEST CLINICAL HISTORY: Dyspnea FINDINGS: An AP upright chest radiograph is compared to study dated 11/23/2023. Correlation is made with chest CT dated 06/12/2023. A right internal jugular central venous catheter is unchanged position. The heart is enlarged noting atherosclerotic calcification of the thoracic aorta. There is pulmonary vascular congestion. Bilateral airspace opacities likely represent pulmonary edema. There are left larger than right pleural effusions with dependent consolidation. No pneumothorax is seen. Ovoid left basilar opacities are similar to previous and indeterminant. The skeletal structures are osteopenic. The bony thorax is grossly intact. Degenerative change is noted in the shoulders and spine. IMPRESSION: 1. Cardiomegaly without evidence of congestive failure. 2. Bilateral airspace opacities likely represent pulmonary edema. Correlate clinically. Radiographic follow-up to resolution is recommended. 3. Left larger than right pleural effusions with dependent consolidation. ACT 112: Negative or not required by law. Electronically signed by: Tone Mccain M.D. 12/04/2023 1:43 PM Venous Doppler Study 12/04/23 13:21 ULTRASOUND RIGHT UPPER EXTREMITY VENOUS CLINICAL HISTORY: Acute pain and swelling of the right upper extremity. COMPARISON STUDY: None. TECHNIQUE: Real-time, grayscale, and color Doppler sonography of the deep veins of the right upper extremity is performed. Compression and augmentation were utilized. FINDINGS: There is no sonographic evidence of deep venous thrombosis identified in the right upper extremity. The right internal jugular, axillary, and brachial veins are patent and normally compressible. Normal venous waveforms and augmentation are seen within the right subclavian vein. The cephalic and basilic veins are clear. The visualized radial and ulnar veins are patent. A right subclavian valve incidentally noted. IMPRESSION: There is no sonographic evidence of deep venous thrombosis identified in the right upper extremity. ACT 112: Negative or not required by law. Electronically signed by: Chip Henderson M.D. 12/04/2023 3:54 PM MDM Narrative Patient was seen and evaluated as above in room A04. Review was performed of triage nursing notes and vital signs. I did review pertinent previous visits and patient history. After obtaining a thorough history and physical examination the above work up was performed. Patient presents to us today for evaluation of shortness of breath over the past 4 days with a higher than normal oxygen requirement. The patient also notes right upper extremity swelling. This is not the side where the fistula is located, rather this is on the left side. However the patient does have a chest port presently that is utilized for hemodialysis. Patient does have an extensive past medical history. Options of care were discussed with the patient. IV access was established. Labs were drawn. EKG was performed per my interpretation reveals sinus tachycardia with PACs at a rate of 103 bpm. QTc 442. QRS 90. Chest x-ray with cardiomegaly and no current evidence of congestive failure. Bilateral airspace opacities likely represent pulmonary edema. No fever. Left larger than right pleural effusion with dependent consolidation noted. Ultrasound the right upper extremity was obtained and is negative for DVT. There is no erythema to the right upper extremity however a developing bacterial infection will be possible and will have to be closely trended during his time here in the hospital. Labs reveal leukocytosis 13.94. Stable anemia noted hemoglobin 8.9. Creatinine 9.89 at baseline. Troponin 663 and similar to previous but will need to be trended. No active chest pain. BioFire panel positive for parainfluenza. I do believe the patient would benefit from inpatient management. He will require dialysis during his time here as an inpatient. Right upper extremity Doppler study negative for DVT. At 4 PM I did speak to Dr. Denise of nephrology. Recommendation is 4 liters of oxygen overnight and dialysis first thing in the morning, and nitro to decompress if blood pressure supports this medicine/becomes higher but not at the present time. I then discussed the presentation with the hospitalist service. Please refer to further documentation regarding his stay. Patient amenable to plan of care. Case was discussed with the attending physician. GCS: 15 In the evaluation and treatment of this patient the following differential diagnoses were entertained: PE, pneumonia, fluid overload, hyperkalemia, pneumothorax, among others Impression & Plan Acute on chronic hypoxic respiratory failure, Elevated troponin, Parainfluenza infection, ESRD on hemodialysis Discharge Plan Visit Data Chief Complaint: Weakness Stated Complaint: WEAKNESS ED Provider: Rudy Coelho ED Midlevel Provider: Lloyd Adam Discharge Problem: Acute on chronic hypoxic respiratory failure, Elevated troponin, Parainfluenza infection, ESRD on hemodialysis Patient Disposition: Admitted As Inpatient Condition: Good Discharge Instructions Interventions: ED Discharge Assessment Last Done: 12/04/23 18:06
--- NOTE | 2023-12-04 13:45 | XRay Report ---
SINGLE VIEW CHEST CLINICAL HISTORY: Dyspnea FINDINGS: An AP upright chest radiograph is compared to study dated 11/23/2023. Correlation is made wit h chest CT dated 06/12/2023. A right internal jugular central venous catheter is unchanged position. The heart is enlarged noting atherosclerotic calcification of the thoracic aorta. There is pulmonary vascular congestion. Bilateral airspace opacities likely represent pulmonary edema. There are left la rger than right pleural effusions with dependent consolidation. No pneumothorax is seen. Ovoid left b asilar opacities are similar to previous and indeterminant. The skeletal structures are osteopenic. T he bony thorax is grossly intact. Degenerative change is noted in the shoulders and spine. IMPRESSION: 1. Cardiomegaly without evidence of congestive failure. 2. Bilateral airspace opacities likely represent pulmonary edema. Correlate clinically. Radiographic follow-up to resolution is recommended. 3. Left larger than right pleural effusions with dependent consolidation. ACT 112: Negative or not required by law. Electronically signed by: Tone Mccain M.D. 12/04/2023 1:43 PM
[2023-12-04 14:46] LABS: Basophils # (auto) 0.04 K/uL (0.00-0.20); Basophils % (auto) 0.3 %; Eosinophils # (auto) 0.04 K/uL (0.00-0.50); Eosinophils % (auto) 0.3 %; Hematocrit (blood only) 28.1 % (42.0-52.0); Hemoglobin 8.9 g/dl (14.0-18.0); Immature Granulocytes # (auto) 0.09 K/uL (0.01-0.20); Immature Granulocytes % (auto) 0.6 %; Lymphocytes # (auto) 0.81 K/uL (1.20-3.40); Lymphocytes % (auto) 5.8 %; Mean Corpuscular Hemoglobin 26.6 pg (25.0-34.0); Mean Corpuscular Hgb Conc 31.7 g/dL (32.0-36.0); Mean Corpuscular Volume 84.1 fL (80.0-100.0); Mean Platelet Volume 11.3 fL (9.4-12.4); Monocytes # (auto) 1.26 K/uL (0.11-0.59); Platelet Count 305 K/uL (130-400); RDW Standard Deviation 58.4 fL (36.4-46.3); Red Blood Count 3.34 M/uL (4.70-6.10); White Blood Count 13.94 K/ul (4.8-10.8)
[2023-12-04 15:15] LABS: Troponin I High Sensitivity 663.2 pg/ml (0-20)
[2023-12-04 15:16] LABS: Albumin Globulin Ratio 1.1 (0.9-2); Albumin Level 3.1 gm/dl (3.4-5.0); BUN Creatinine Ratio 6.1 (10-20); Bilirubin,Total 0.6 mg/dl (0.2-1.0); Calcium 8.7 mg/dl (8.6-10.3); Creatinine Clr Calc Pharmacy 7.2 ml/min; Est GFR (African American) 5.5 ml/min; Est GFR (Non-African American) 4.8 ml/min; Globulin 2.7 gm/dl (2.5-4.0); Magnesium 2.1 mg/dl (1.7-2.4); Potassium 4.3 mmol/L (3.5-5.1); Total Protein 5.8 gm/dl (6.0-8.3)
--- NOTE | 2023-12-04 15:17 | Electrocardiogram Report ---
Test Reason : Blood Pressure : / mmHG Vent. Rate : 103 BPM Atrial Rate : 103 BPM P-R Int : 190 ms QRS Dur : 090 ms QT Int : 338 ms P-R-T Axes : 048 -50 121 degrees QTc Int : 442 ms Sinus tachycardia with Premature atrial complexes Left axis deviation Left ventricular hypertrophy with repolarization abnormality Inferior infarct , age undetermined Anterolateral infarct , age undetermined Abnormal ECG Confirmed by Prabhu Abrams ([id number]) on 12/04/2023 3:17:29 PM Referred By: Cisco Starkey Confirmed By:Juancho Abrams
[2023-12-04 15:25] LABS: INR 1.1 (0.9-1.1); Partial Thromboplastin Ratio 1.2; Partial Thromboplastin Time 33 Seconds (21-31); Prothrombin Time 11.6 Seconds (9.0-12.0)
--- NOTE | 2023-12-04 15:55 | Ultrasound Report ---
ULTRASOUND RIGHT UPPER EXTREMITY VENOUS CLINICAL HISTORY: Acute pain and swelling of the right upper extremity. COMPARISON STUDY: None. TECHNIQUE: Real-time, grayscale, and color Doppler sonography of the deep veins of the right upper ex tremity is performed. Compression and augmentation were utilized. FINDINGS: There is no sonographic evidence of deep venous thrombosis identified in the right upper ex tremity. The right internal jugular, axillary, and brachial veins are patent and normally compressibl e. Normal venous waveforms and augmentation are seen within the right subclavian vein. The cephalic a nd basilic veins are clear. The visualized radial and ulnar veins are patent. A right subclavian valv e incidentally noted. IMPRESSION: There is no sonographic evidence of deep venous thrombosis identified in the right upper extremity. ACT 112: Negative or not required by law. Electronically signed by: Chip Henderson M.D. 12/04/2023 3:54 PM
--- NOTE | 2023-12-04 16:14 | History & Physical Report ---
Date of Service December 04, 2023 Assessment & Plan (1) Acute on chronic hypoxic respiratory failure: (2) Parainfluenza infection: (3) Pneumonia: (4) Pleural effusion: Plan Mr. 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 Multifactorial etiology--volume overload, recurrent pleural effusion, viral with ?superimposed bacterial infection #Acute on chronic respiratory failure, multifactorial #Recurrent pleural effusions #URI with parainfluenza, concern for superimposed bacterial -Biofire +parainfluenza; CXR increased left pleural effusions (s/p Thora 5/) -Schedule mucinex -flutter valve -Cefepime/Azitro -Sputum culture and procal -Droplet precautions -Volume management per dialysis #RUE edema doppler negative, good subclavian waveforms reported; volume management per nephro dvt ppx #Relative hypotension #HTN SBP in low 100s despite min HD, took am medications -Hold home antihypertensives (Imdur, amlodipine, losartan) Continue Metorpolol, Monitor on tele #Acute on chronic HFmrEF -volume overload iso ESRD, HD as tolerated #Elevated troponin No chest pain, likely multifactorial for elevation, low suspicion for ACS -Trend to peak #ESRD on HD nephrology consult potassium stable, no emergent HD needs noted #HTN continue statin DVT hep sq Admit PCU tele Admission and Anticipated Discharge Date Admission Date: Time spent evaluating patient, direct bedside care, chart review, placing orders, interpretation of diagnostic studies, discussion with consultants, patient, and family members, as well as other required patient management activities is 60 minutes. History of Present Illness Chief Complaint: SOB Primary Care Provider: Cisco Starkey MD Mr. 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 Paroxysmal atrial flutter, valvular heart disorder, P ANCA vasculitis as per records, hypertension, aortic ectasia, history of GA, anemia of chronic disease, secondary hyperparathyroidism, hyperlipidemia,recurrent pleural effusion s/p multiple thoracocentesis and recurrent admissions for respiratory failure presented to [facility] ED due to SOB and generally feeling unwell. Patient states he noticed increase in cough with sputum production over the course of 3-4 days. He denies fevers, but endorses general fatigue. He denies cough at baseline. He denies chest pain or palpitations. He reports RUE swelling as of this morning, but denies pain in his extremity or at site of permacath Patient is on home oxygen at 1 L at baseline. Patient did not take medications this morning. Last thora 11/22 with 300ml removed In the ED, vitals were notable for BP of 100s, HR of 100s, and O2 sat of low 80s initially requiring 4L, but now at 1.5L Imaging revealed right UE doppler negative for DVT, moderate left pleural effusion with pulm edema noted, right sided opacities noted as well with ?edema v infectious EKG sinus with pacs ED interventions: none Consultants: nephrology Patient to be admitted to pcu/tele for further evaluation and management of SOB, multifactorial pneumonia, recurrent effusion, volume overload Allergies Allergy/AdvReac Type Severity Reaction Status Date / Time No Known Allergies Allergy Verified 12/04/23 15:57 Home Medications Medication Instructions Recorded Confirmed Type atorvastatin 40 mg tablet 40 mg PO HS #30 tabs 03/28/23 12/04/23 Rx hydralazine 100 mg tablet 100 mg PO TID #90 tabs 03/28/23 12/04/23 Rx losartan 50 mg tablet (Cozaar) 50 mg PO AMHS #30 tabs 03/28/23 12/04/23 Rx ergocalciferol (vitamin D2) 1,250 1,250 mcg PO WK 04/15/23 12/04/23 History mcg (50,000 unit) capsule (Vitamin D2) amlodipine 10 mg tablet 10 mg PO DAILY 06/12/23 12/04/23 History allopurinol 100 mg tablet 100 mg PO DAILY 08/28/23 12/04/23 History guaifenesin 600 mg tablet, 600 mg PO BID PRN Congestion 08/28/23 12/04/23 History extended release 12 hr (Mucinex) isosorbide dinitrate 20 mg tablet 20 mg PO TID 08/28/23 12/04/23 History ondansetron HCl 4 mg tablet 4 mg PO Q8H PRN NAUSEA/VOMITING 08/28/23 12/04/23 History patiromer calcium sorbitex 8.4 8.4 g PO Q OTHER DAY 08/28/23 12/04/23 History gram oral powder packet (Veltassa) protein supplement 30 ea PO BID 08/28/23 12/04/23 History vitamin B complex with vit C-folic 1 tab PO DAILY 08/28/23 12/04/23 History acid 800 mcg-zinc 12.5 mg tablet (RenaPlex) metoprolol succinate 50 mg 50 mg PO HS #30 tabs 08/31/23 12/04/23 Rx tablet,extended release 24 hr amino acid-protein hyd 16 gram-100 30 ml PO DIRECTED 10/05/23 12/04/23 History kcal/30 mL oral liq meter-dose pump (Liquacel) ferric citrate 210 mg iron tablet 420 mg PO TIDWMEAL 10/05/23 12/04/23 History (Auryxia) Past Med/Surg History Problem List (Updated 12/04/23 @ 17:33 by Ebony Glaser MD) Parainfluenza infection Acute on chronic hypoxic respiratory failure HLD (hyperlipidemia) Chronic CHF Chronic hypoxic respiratory failure Hyperkalemia Hemodialysis AV fistula thrombosis Pleural effusion (Acute) Anemia (Acute) Shortness of breath (Acute) CHF (congestive heart failure) (Acute) EF 45-50% on 08/2023 echo Congestive heart failure (Acute) Hypertensive heart disease Medically noncompliant Chest pain (Acute) Acute hyperkalemia (Acute) Pneumonia (Acute) Renal failure (ARF), acute on chronic (Acute) Elevated troponin (Acute) Respiratory failure (Acute) HFrEF (heart failure with reduced ejection fraction) ESRD (end stage renal disease) on dialysis (Acute) Pneumonia (Acute) Hypertensive urgency (Acute) Pleural effusion (Acute) SOB (shortness of breath) (Acute) Dialysis patient (Acute) Hypoxia (Acute) Pleural effusion (Acute) ESRD on hemodialysis Acute heart failure with reduced ejection fraction and diastolic dysfunction Hypoxia (Acute) Renal failure (Acute) Anemia (Acute) Elevated troponin (Acute) Pleural effusion (Acute) PD catheter dysfunction Peritonitis associated with peritoneal dialysis Dyspnea (Acute) Abdominal pain (Acute) Peritoneal dialysis catheter in situ Pneumonia (Acute) Elevated troponin (Acute) Body aches (Acute) Cough (Acute) Precordial chest pain (Acute) SOB (shortness of breath) (Acute) Encounter for pre-operative examination Right groin pain Hematuria, microscopic (Acute) Recurrent pleural effusion Acute hypoxemic respiratory failure hx Anemia of chronic disease Hypertension ESRD (end stage renal disease) on dialysis (Acute) HD patient [place] [facility] [place] M, W and F per [facility] RN notation. 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 Fluid overload (Acute) Kidney transplant candidate Nephrolithiasis (Acute) Benign prostatic hyperplasia with urinary obstruction (Acute) Medical History HLD (hyperlipidemia) Chronic CHF Chronic hypoxic respiratory failure Hyperkalemia Mild aortic stenosis Pulmonary hypertension PASP 45 mmHg on 08/2023 echo Aortic ectasia Secondary hyperparathyroidism History of GA (myocardial infarction) Heart valve disorder Paroxysmal atrial flutter Chronic respiratory failure CHF (congestive heart failure) EF 45-50% on 08/2023 echo Chest pain hx--not current issue SOB (shortness of breath) Anemia of chronic disease Pleural effusion chronic, recurrent ESRD (end stage renal disease) on dialysis HD patient [place] trav/ [facility] [place] M, W and F per [facility] RN notation. 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 AV fistula left arm Hypertension Restless leg syndrome Nephrolithiasis Benign prostatic hyperplasia with urinary obstruction Surgical History History of colonoscopy H/O inguinal hernia repair History of cystoscopy Status post creation of arteriovenous fistula left arm History of tooth extraction History of thoracentesis Family History Other No family history of adverse response to anesthesia No significant family history Social History Smoking Status: Unknown if ever smoked Tobacco Type: Cigarettes Second Hand Exposure: No; Do You Dip or Chew Tobacco: No; Hx Alcohol Use: No Hx Substance Use: No Preferred Language: [place] Communication Ability: Effective Communication Ability Comment: daughter speaks [place]ish well, pt will need loss control representative device Communication Tools: IPad Nailhead Puncher Required: Yes, Video and Voice Beliefs That Will Affect Care: None marital status: Current Living Situation: Spouse current occupational status: employed Feels Safe at Home: Yes Assistive Devices: Oxygen - Continuous Review of Systems Review of Systems: Constitutional: (-) fever/chills, (-) recent loss of weight, (-) appetite changes, (-) night sweats. Head: (-) headache, (-) dizziness. Eye: (-) blurring of vision, (-) double vision, (-) redness. Ear: (-) hearing loss, (-) discharge, (-) vertigo Nose: (-) discharge, (-) bleeding, (-) congestion, (-) post nasal drip. Throat: (-) sore throat, (-) hoarseness of voice, (-) odynophagia. Cardiovascular: (-) chest pain, (-) palpitations, (-) syncope, (-) orthopnea, (- ) PND, (-) leg swelling. Respiratory: (++) shortness of breath, (++) cough, (-) wheezing, (-) hemoptysis. Neuro: (-) weakness in extremities, (-) numbness, (-) tingling, (-) tremor. Gastrointestinal: (-) belly pain, (-) belly distension, (-) nausea, (-) vomiting, (-) diarrhea, (-) constipation Genitourinary: anuric Musculoskeletal: (-) myalgia, (-) arthralgia. Skin: (-) rashes. Endocrine: (-) heat/cold intolerance. Psychiatry: (-) depression, (-) hallucination. Physical Exam Physical Exam: GENERAL APPEARANCE: AxOx4, coughing on exam, otherwise no acute distress. HEENT: NC, AT. MMM. EOMI, clear conjunctiva, oropharynx clear. NECK: Supple without lymphadenopathy. No stiffness or restricted ROM. HEART: Normal rate and regular rhythm, JESUS LUNGS: diminished bibasilar lung sounds, crackles scattered r side ABDOMEN: Soft, nontender, nondistended with good bowel sounds heard. BACK: No CVAT, no obvious deformity. EXTREMITIES: Without cyanosis, clubbing; right upper extremity edema noted uniformly, no erythema or tenderness, r permacath without surround erythema NEUROLOGICAL: Grossly nonfocal. Alert and oriented, moving all 4 extremities. CN not formally tested but appear grossly intact. Observed to ambulate with normal gait. Skin: Warm and dry without any rash. Results & Data Results & Data Vital Signs (Past 12 Hours) Vital Signs Temp Pulse Pulse Resp BP BP Pulse Ox 12/04/23 15:29 36.8 C 103 H 20 109/88 90 12/04/23 15:28 90 12/04/23 13:47 106 H 12/04/23 12:43 36.7 C 104 H 22 139/97 97 O2 Del Method O2 Flow Rate 12/04/23 15:29 Nasal Cannula 1.5 12/04/23 15:28 Nasal Cannula 1.5 12/04/23 13:47 12/04/23 12:43 Nasal Cannula 3 Laboratory Results Short CBC 12/04/23 Range/Units 14:24 WBC 13.94 H (4.8-10.8) K/ul Hgb 8.9 L (14.0-18.0) g/dl Hct 28.1 L (42.0-52.0) % Plt Count 305 (130-400) K/uL BMP 12/04/23 14:24 Sodium 141 Potassium 4.3 Chloride 101 Carbon Dioxide 28 BUN 60 H Creatinine 9.89 H* Glucose 82 Calcium 8.7 Liver Function 12/04/23 Range/Units 14:24 Total Bilirubin 0.6 (0.2-1.0) mg/dl AST 21 (13-39) U/L ALT 26 (7-52) U/L Alkaline Phosphatase 52 (34-104) U/L Albumin 3.1 L (3.4-5.0) gm/dl Diagnostic Findings Home Medications Medication Instructions Recorded Confirmed Last Taken atorvastatin 40 mg tablet 40 mg PO HS #30 tabs 03/28/23 12/04/23 12/03/23 hydralazine 100 mg tablet 100 mg PO TID #90 tabs 03/28/23 12/04/23 12/03/23 losartan 50 mg tablet (Cozaar) 50 mg PO AMHS #30 tabs 03/28/23 12/04/23 12/03/23 ergocalciferol (vitamin D2) 1,250 1,250 mcg PO WK 04/15/23 12/04/23 11/27/23 mcg (50,000 unit) capsule (Vitamin D2) amlodipine 10 mg tablet 10 mg PO DAILY 06/12/23 12/04/23 12/03/23 allopurinol 100 mg tablet 100 mg PO DAILY 08/28/23 12/04/23 12/03/23 guaifenesin 600 mg tablet, 600 mg PO BID PRN Congestion 08/28/23 12/04/23 Unknown extended release 12 hr (Mucinex) isosorbide dinitrate 20 mg tablet 20 mg PO TID 08/28/23 12/04/23 12/03/23 ondansetron HCl 4 mg tablet 4 mg PO Q8H PRN NAUSEA/VOMITING 08/28/23 12/04/23 Unknown patiromer calcium sorbitex 8.4 8.4 g PO Q OTHER DAY 08/28/23 12/04/23 12/03/23 gram oral powder packet (Veltassa) protein supplement 30 ea PO BID 08/28/23 12/04/23 12/03/23 vitamin B complex with vit C-folic 1 tab PO DAILY 08/28/23 12/04/23 12/03/23 acid 800 mcg-zinc 12.5 mg tablet (RenaPlex) metoprolol succinate 50 mg 50 mg PO HS #30 tabs 08/31/23 12/04/23 12/03/23 tablet,extended release 24 hr amino acid-protein hyd 16 gram-100 30 ml PO DIRECTED 10/05/23 12/04/23 11/01/23 kcal/30 mL oral liq meter-dose pump (Liquacel) ferric citrate 210 mg iron tablet 420 mg PO TIDWMEAL 10/05/23 12/04/23 12/03/23 (Auryxia) Medications Administered Home Medications Medication Instructions Recorded Confirmed Last Taken atorvastatin 40 mg tablet 40 mg PO HS #30 tabs 03/28/23 12/04/23 12/03/23 hydralazine 100 mg tablet 100 mg PO TID #90 tabs 03/28/23 12/04/23 12/03/23 losartan 50 mg tablet (Cozaar) 50 mg PO AMHS #30 tabs 03/28/23 12/04/23 12/03/23 ergocalciferol (vitamin D2) 1,250 1,250 mcg PO WK 04/15/23 12/04/23 11/27/23 mcg (50,000 unit) capsule (Vitamin D2) amlodipine 10 mg tablet 10 mg PO DAILY 06/12/23 12/04/23 12/03/23 allopurinol 100 mg tablet 100 mg PO DAILY 08/28/23 12/04/23 12/03/23 guaifenesin 600 mg tablet, 600 mg PO BID PRN Congestion 08/28/23 12/04/23 Unknown extended release 12 hr (Mucinex) isosorbide dinitrate 20 mg tablet 20 mg PO TID 08/28/23 12/04/23 12/03/23 ondansetron HCl 4 mg tablet 4 mg PO Q8H PRN NAUSEA/VOMITING 08/28/23 12/04/23 Unknown patiromer calcium sorbitex 8.4 8.4 g PO Q OTHER DAY 08/28/23 12/04/23 12/03/23 gram oral powder packet (Veltassa) protein supplement 30 ea PO BID 08/28/23 12/04/23 12/03/23 vitamin B complex with vit C-folic 1 tab PO DAILY 08/28/23 12/04/23 12/03/23 acid 800 mcg-zinc 12.5 mg tablet (RenaPlex) metoprolol succinate 50 mg 50 mg PO HS #30 tabs 08/31/23 12/04/23 12/03/23 tablet,extended release 24 hr amino acid-protein hyd 16 gram-100 30 ml PO DIRECTED 10/05/23 12/04/23 11/01/23 kcal/30 mL oral liq meter-dose pump (Liquacel) ferric citrate 210 mg iron tablet 420 mg PO TIDWMEAL 10/05/23 12/04/23 12/03/23 (Auryxia) (3) Pneumonia Laterality: unspecified laterality Lung location: unspecified part of lung Pneumonia type: due to unspecified organism Qualified Code(s): J18.9 - Pneumonia, unspecified organism
[2023-12-04 16:57] LABS: Adenovirus PCR Not Detected (NotDetected); Bordetella parapertussis PCR Not Detected (NotDetected); Bordetella pertussis PCR Not Detected (NotDetected); Chlamydia pneumoniae PCR Not Detected (NotDetected); Coronavirus 229E PCR Not Detected (NotDetected); Coronavirus CoV-2 (COVID19)PCR Not Detected (NotDetected); Coronavirus HKU1 PCR Not Detected (NotDetected); Coronavirus NL63 PCR Not Detected (NotDetected); Coronavirus OC43PCR Not Detected (NotDetected); Human Metapneumovirus PCR Not Detected (NotDetected); Influenza A PCR Not Detected (NotDetected); Influenza B PCR Not Detected (NotDetected); Mycoplasma pneumoniae PCR Not Detected (NotDetected); Parainfluenza Virus 1 PCR Not Detected (NotDetected); Parainfluenza Virus 2 PCR Not Detected (NotDetected); Parainfluenza Virus 3 PCR DETECTED (NotDetected); Parainfluenza Virus 4 PCR Not Detected (NotDetected); Respiratory Syncytial VirusPCR Not Detected (NotDetected); Rhinovirus/Enterovirus PCR Not Detected (NotDetected)
[2023-12-04] MEDS ORDERED: ONDANSETRON 4 MG OD TAB PO PRN (18:29)
[2023-12-04] MEDS: CEFEPIME 1,000 MG in SYRINGE 0 ML IV SCH (19:00)
[2023-12-04] MEDS: AZITHROMYCIN 500 MG in DEXTROSE 5% 250 ML IV SCH (19:00)
[2023-12-04] MEDS: METOPROLOL SUCC 50MG EXT REL TAB PO SCH (21:26)
[2023-12-04] MEDS: ERGOCALCIFEROL 1250 MCG (50,000 UNITS) CAP PO SCH (21:26)
[2023-12-04] MEDS: ATORVASTATIN 40 MG TAB PO SCH (21:26)
[2023-12-04] MEDS: guaiFENesin 600 MG TABCR PO SCH (21:26)
[2023-12-04] MEDS: HEPARIN SOD 5,000 UNIT/0.5 ML VIAL SQ SCH (21:27)
[2023-12-05 06:04] LABS: Hematocrit (blood only) 25.6 % (42.0-52.0); Hemoglobin 8.3 g/dl (14.0-18.0); Mean Corpuscular Hemoglobin 26.3 pg (25.0-34.0); Mean Corpuscular Hgb Conc 32.4 g/dL (32.0-36.0); Mean Corpuscular Volume 81.3 fL (80.0-100.0); Mean Platelet Volume 10.7 fL (9.4-12.4); Platelet Count 267 K/uL (130-400); RDW Coefficient of Variation 19.3 % (11.5-14.5); RDW Standard Deviation 56.9 fL (36.4-46.3); Red Blood Count 3.15 M/uL (4.70-6.10); White Blood Count 11.61 K/ul (4.8-10.8)
[2023-12-05 06:35] LABS: BUN Creatinine Ratio 6.3 (10-20); Calcium 8.3 mg/dl (8.6-10.3); Creatinine Clr Calc Pharmacy 6.5 ml/min; Est GFR (African American) 4.9 ml/min; Est GFR (Non-African American) 4.3 ml/min; Magnesium 2.2 mg/dl (1.7-2.4); Potassium 4.2 mmol/L (3.5-5.1)
[2023-12-05] MEDS: NEPHROCAPS PO SCH (08:16)
[2023-12-05] MEDS: allopurinoL 100 MG TAB PO SCH (08:16)
[2023-12-05] MEDS ORDERED: SODIUM CHLORIDE 0.9% 1,000 ML IV PRN (08:20)
--- NOTE | 2023-12-05 08:23 | Hospitalist Progress Note ---
Date of Service December 05, 2023 Assessment & Plan (1) Acute on chronic hypoxic respiratory failure: (2) Parainfluenza infection: (3) Pneumonia: (4) Pleural effusion: Plan Mr. 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 Multifactorial etiology--volume overload, recurrent pleural effusion, viral with ?superimposed bacterial infection Acute on chronic respiratory failure, multifactorial Recurrent pleural effusions URI with parainfluenza, concern for superimposed bacterial -Biofire +parainfluenza; CXR increased left pleural effusions (s/p Thora 11/22) -Schedule mucinex -flutter valve -Cefepime/Azitro -Sputum culture pending, procal 1.89 -Droplet precautions -Volume management per dialysis - had HD today, plan for another HD tmrw -Pulm. consulted for poss. thoracentesis RUE edema doppler negative, good subclavian waveforms reported; volume management per nephro dvt ppx Relative hypotension HTN SBP in low 100s despite min HD, took am medications -Hold home antihypertensives (Imdur, amlodipine, losartan) Continue Metorpolol, Monitor on tele Acute on chronic HFmrEF -volume overload iso ESRD, HD as tolerated- as above Elevated troponin No chest pain, in the setting of CKD - likely falsely elevated/ multifactorial, low suspicion for ACS -Trend to peak ESRD on HD nephrology consult potassium stable, no emergent HD needs noted - had HD today, next HD plan for tmrw HTN continue statin DVT hep sq PCU Admission and Anticipated Discharge Date Admission Date: December 04, 2023 Subjective Pt seen in follow up for acute on chronic resp. failure, recurrent pl. effusion, ESRD on HD Pt is now s/p HD, laying in bed in NAD, says his breathing is better, however he is still on 5L of suppl. O2 Seen by pulm., no plan for thoracentesis today, plan for another HD tmrw + cough No chest pain, palpitations, abd. pain, n/v Review of Systems Review of Systems: All systems reviewed & are unremarkable except as noted in Subjective Physical Exam Physical Exam: GENERAL APPEARANCE: AxOx4 in NAD HEENT: NC, AT. MMM. EOMI NECK: Supple HEART: Normal rate and regular rhythm, JESUS LUNGS: diminished bibasilar lung sounds ABDOMEN: Soft, nontender, nondistended with +bowel sounds BACK: No CVA EXTREMITIES: right upper extremity edema, no erythema or tenderness NEUROLOGICAL: Awake, alert and oriented, speech fluent, answers appropriately, no facial asymmetry, moving all 4 extremities Skin: Warm and dry without any rash. Results & Data Results & Data Vital Signs (Past 12 Hours) Vital Signs Temp Pulse Pulse Resp BP Pulse Ox O2 Del Method 12/05/23 07:14 36.9 C 83 20 156/80 H 95 Nasal Cannula 12/05/23 01:47 36.6 C 82 20 144/81 H 95 Nasal Cannula 12/04/23 23:01 37.4 C 90 20 132/80 94 Nasal Cannula 12/04/23 23:00 121 H 12/04/23 21:20 Nasal Cannula O2 Flow Rate 12/05/23 07:14 5 12/05/23 01:47 5 12/04/23 23:01 5 12/04/23 23:00 12/04/23 21:20 5 Laboratory Results 12/05/23 12/05/23 12/05/23 Range/Units 08:04 08:02 05:28 WBC 11.61 H (4.8-10.8) K/ul RBC 3.15 L (4.70-6.10) M/uL Hgb 8.3 L (14.0-18.0) g/dl Hct 25.6 L (42.0-52.0) % MCV 81.3 (80.0-100.0) fL MCH 26.3 (25.0-34.0) pg MCHC 32.4 (32.0-36.0) g/dL RDW Std Deviation 56.9 H (36.4-46.3) fL RDW Coeff of Diamond 19.3 H (11.5-14.5) % Plt Count 267 (130-400) K/uL MPV 10.7 (9.4-12.4) fL Immature Gran % (Auto) % Neut % (Auto) % Lymph % (Auto) % [place] % (Auto) % Eos % (Auto) % Baso % (Auto) % Neut # (Auto) (1.40-6.50) K/uL Lymph # (Auto) (1.20-3.40) K/uL Shasta # (Auto) (0.11-0.59) K/uL Eos # (Auto) (0.00-0.50) K/uL Baso # (Auto) (0.00-0.20) K/uL Immature Gran # (Auto) (0.01-0.20) K/uL PT (9.0-12.0) Seconds INR (0.9-1.1) APTT (21-31) Seconds PTT Ratio Sodium 142 (136-145) mmol/L Potassium 4.2 (3.5-5.1) mmol/L Chloride 102 (98-107) mmol/L Carbon Dioxide 26 (21-32) mmol/L Anion Gap 14 H (3-11) BUN 69 H (6-23) mg/dl Creatinine 10.91 H* D (0.6-1.4) mg/dl Est Cr Clr Drug Dosing 6.5 ml/min Est GFR ( Amer) 4.9 ml/min Est GFR (Non-Af Amer) 4.3 ml/min BUN/Creatinine Ratio 6.3 L (10-20) Glucose 61 L (70-99(Fasting)) mg/dl POC Glucose 64 L* 68 L* (70-99) mg/dl Calcium 8.3 L (8.6-10.3) mg/dl Phosphorus 3.0 (2.5-4.9) mg/dl Magnesium 2.2 (1.7-2.4) mg/dl Total Bilirubin (0.2-1.0) mg/dl AST (13-39) U/L ALT (7-52) U/L Alkaline Phosphatase (34-104) U/L Troponin I High Sens (0-20) pg/ml Total Protein (6.0-8.3) gm/dl Albumin (3.4-5.0) gm/dl Globulin (2.5-4.0) gm/dl Albumin/Globulin Ratio (0.9-2) Procalcitonin (0-0.5) ng/ml Nasal Screen MRSA (PCR) (Negative) Adenovirus (PCR) (NotDetected) B. pertussis DNA (PCR) (NotDetected) B.parapertussis DNA PCR (NotDetected) C. pneumoniae DNA (PCR) (NotDetected) Coronavirus OC43 (PCR) (NotDetected) Coronavirus HKU1 (PCR) (NotDetected) Coronavirus 229E (PCR) (NotDetected) SARS-CoV-2 (PCR) (NotDetected) Coronavirus NL63 (PCR) (NotDetected) Human Metapneumovir PCR (NotDetected) Influenza Type A (PCR) (NotDetected) Influenza Type B (PCR) (NotDetected) M. pneumoniae (PCR) (NotDetected) Parainfluenza 1 (PCR) (NotDetected) Parainfluenza 2 (PCR) (NotDetected) Parainfluenza 3 (PCR) (NotDetected) Parainfluenza 4 (PCR) (NotDetected) RSV (PCR) (NotDetected) Entero/Rhino (PCR) (NotDetected) 12/04/23 12/04/23 12/04/23 Range/Units Unknown 19:55 14:25 WBC (4.8-10.8) K/ul RBC (4.70-6.10) M/uL Hgb (14.0-18.0) g/dl Hct (42.0-52.0) % MCV (80.0-100.0) fL MCH (25.0-34.0) pg MCHC (32.0-36.0) g/dL RDW Std Deviation (36.4-46.3) fL RDW Coeff of Diamond (11.5-14.5) % Plt Count (130-400) K/uL MPV (9.4-12.4) fL Immature Gran % (Auto) % Neut % (Auto) % Lymph % (Auto) % [place] % (Auto) % Eos % (Auto) % Baso % (Auto) % Neut # (Auto) (1.40-6.50) K/uL Lymph # (Auto) (1.20-3.40) K/uL [place] # (Auto) (0.11-0.59) K/uL Eos # (Auto) (0.00-0.50) K/uL Baso # (Auto) (0.00-0.20) K/uL Immature Gran # (Auto) (0.01-0.20) K/uL PT (9.0-12.0) Seconds INR (0.9-1.1) APTT (21-31) Seconds PTT Ratio Sodium (136-145) mmol/L Potassium (3.5-5.1) mmol/L Chloride (98-107) mmol/L Carbon Dioxide (21-32) mmol/L Anion Gap (3-11) BUN (6-23) mg/dl Creatinine (0.6-1.4) mg/dl Est Cr Clr Drug Dosing ml/min Est GFR ( Amer) ml/min Est GFR (Non-Af Amer) ml/min BUN/Creatinine Ratio (10-20) Glucose (70-99(Fasting)) mg/dl POC Glucose (70-99) mg/dl Calcium (8.6-10.3) mg/dl Phosphorus (2.5-4.9) mg/dl Magnesium (1.7-2.4) mg/dl Total Bilirubin (0.2-1.0) mg/dl AST (13-39) U/L ALT (7-52) U/L Alkaline Phosphatase (34-104) U/L Troponin I High Sens 993.5 H* D (0-20) pg/ml Total Protein (6.0-8.3) gm/dl Albumin (3.4-5.0) gm/dl Globulin (2.5-4.0) gm/dl Albumin/Globulin Ratio (0.9-2) Procalcitonin 1.89 H (0-0.5) ng/ml Nasal Screen MRSA (PCR) Negative (Negative) Adenovirus (PCR) (NotDetected) B. pertussis DNA (PCR) (NotDetected) B.parapertussis DNA PCR (NotDetected) C. pneumoniae DNA (PCR) (NotDetected) Coronavirus OC43 (PCR) (NotDetected) Coronavirus HKU1 (PCR) (NotDetected) Coronavirus 229E (PCR) (NotDetected) SARS-CoV-2 (PCR) (NotDetected) Coronavirus NL63 (PCR) (NotDetected) Human Metapneumovir PCR (NotDetected) Influenza Type A (PCR) (NotDetected) Influenza Type B (PCR) (NotDetected) M. pneumoniae (PCR) (NotDetected) Parainfluenza 1 (PCR) (NotDetected) Parainfluenza 2 (PCR) (NotDetected) Parainfluenza 3 (PCR) (NotDetected) Parainfluenza 4 (PCR) (NotDetected) RSV (PCR) (NotDetected) Entero/Rhino (PCR) (NotDetected) 12/04/23 12/04/23 Range/Units 14:24 12:36 WBC 13.94 H (4.8-10.8) K/ul RBC 3.34 L (4.70-6.10) M/uL Hgb 8.9 L (14.0-18.0) g/dl Hct 28.1 L (42.0-52.0) % MCV 84.1 (80.0-100.0) fL MCH 26.6 (25.0-34.0) pg MCHC 31.7 L (32.0-36.0) g/dL RDW Std Deviation 58.4 H (36.4-46.3) fL RDW Coeff of Diamond 19.0 H (11.5-14.5) % Plt Count 305 (130-400) K/uL MPV 11.3 (9.4-12.4) fL Immature Gran % (Auto) 0.6 % Neut % (Auto) 84.0 % Lymph % (Auto) 5.8 % Shasta % (Auto) 9.0 % Eos % (Auto) 0.3 % Baso % (Auto) 0.3 % Neut # (Auto) 11.70 H (1.40-6.50) K/uL Lymph # (Auto) 0.81 L (1.20-3.40) K/uL [place] # (Auto) 1.26 H (0.11-0.59) K/uL Eos # (Auto) 0.04 (0.00-0.50) K/uL Baso # (Auto) 0.04 (0.00-0.20) K/uL Immature Gran # (Auto) 0.09 (0.01-0.20) K/uL PT 11.6 (9.0-12.0) Seconds INR 1.1 (0.9-1.1) APTT 33 H (21-31) Seconds PTT Ratio 1.2 Sodium 141 (136-145) mmol/L Potassium 4.3 (3.5-5.1) mmol/L Chloride 101 (98-107) mmol/L Carbon Dioxide 28 (21-32) mmol/L Anion Gap 12 H (3-11) BUN 60 H (6-23) mg/dl Creatinine 9.89 H* (0.6-1.4) mg/dl Est Cr Clr Drug Dosing 7.2 ml/min Est GFR ( Amer) 5.5 ml/min Est GFR (Non-Af Amer) 4.8 ml/min BUN/Creatinine Ratio 6.1 L (10-20) Glucose 82 (70-99(Fasting)) mg/dl POC Glucose (70-99) mg/dl Calcium 8.7 (8.6-10.3) mg/dl Phosphorus (2.5-4.9) mg/dl Magnesium 2.1 (1.7-2.4) mg/dl Total Bilirubin 0.6 (0.2-1.0) mg/dl AST 21 (13-39) U/L ALT 26 (7-52) U/L Alkaline Phosphatase 52 (34-104) U/L Troponin I High Sens 663.2 H* (0-20) pg/ml Total Protein 5.8 L (6.0-8.3) gm/dl Albumin 3.1 L (3.4-5.0) gm/dl Globulin 2.7 (2.5-4.0) gm/dl Albumin/Globulin Ratio 1.1 (0.9-2) Procalcitonin (0-0.5) ng/ml Nasal Screen MRSA (PCR) (Negative) Adenovirus (PCR) Not Detected (NotDetected) B. pertussis DNA (PCR) Not Detected (NotDetected) B.parapertussis DNA PCR Not Detected (NotDetected) C. pneumoniae DNA (PCR) Not Detected (NotDetected) Coronavirus OC43 (PCR) Not Detected (NotDetected) Coronavirus HKU1 (PCR) Not Detected (NotDetected) Coronavirus 229E (PCR) Not Detected (NotDetected) SARS-CoV-2 (PCR) Not Detected (NotDetected) Coronavirus NL63 (PCR) Not Detected (NotDetected) Human Metapneumovir PCR Not Detected (NotDetected) Influenza Type A (PCR) Not Detected (NotDetected) Influenza Type B (PCR) Not Detected (NotDetected) M. pneumoniae (PCR) Not Detected (NotDetected) Parainfluenza 1 (PCR) Not Detected (NotDetected) Parainfluenza 2 (PCR) Not Detected (NotDetected) Parainfluenza 3 (PCR) DETECTED A (NotDetected) Parainfluenza 4 (PCR) Not Detected (NotDetected) RSV (PCR) Not Detected (NotDetected) Entero/Rhino (PCR) Not Detected (NotDetected) Medications Administered Current Inpatient Medications Acetaminophen (Acetaminophen 325 Mg Tab) 650 mg PO Q4H PRN PRN Reason: Pain or Fever Stop: 01/03/24 18:28 Allopurinol (Allopurinol 100 Mg Tab) 100 mg PO DAILY MYLES Stop: 01/04/24 08:59 Last Admin: 12/05/23 08:16 Dose: 100 mg Atorvastatin Calcium (Atorvastatin 40 Mg Tab) 40 mg PO HS MYLES Stop: 01/03/24 20:59 Last Admin: 12/04/23 21:26 Dose: 40 mg Ergocalciferol (Ergocalciferol 1250 Mcg (50,000 Units) Cap) 1,250 mcg PO Mo@0900 MYLES Stop: 01/03/24 18:28 Last Admin: 12/04/23 21:26 Dose: 1,250 mcg Guaifenesin (Guaifenesin 600 Mg Tabcr) 600 mg PO BID MYLES Stop: 01/03/24 20:59 Last Admin: 12/05/23 08:16 Dose: 600 mg Heparin Sodium (Porcine) (Heparin Sod 5,000 Unit/0.5 Ml Vial) 5,000 units SQ Q8 MYLES Stop: 01/03/24 21:59 Last Admin: 12/05/23 05:36 Dose: 5,000 units Azithromycin 500 mg/ Dextrose 255 mls @ 125 mls/hr IV Q24H MYLES Stop: 12/08/23 21:03 Last Infusion: 12/04/23 21:03 Dose: Infused Cefepime HCl 1,000 mg/ Syringe 10 mls @ 5 mls/min IV Q24H [facility]; Protocol Stop: 12/11/23 18:59 Last Admin: 12/04/23 19:00 Dose: 5 mls/min Metoprolol Succinate (Metoprolol Succ 50mg Ext Rel Tab) 50 mg PO HS [facility] Stop: 01/03/24 20:59 Last Admin: 12/04/23 21:26 Dose: 50 mg Miscellaneous (Ferric Citrate [Auryxia] 210 Mg Iron Tablet Order Awaiting Action) 1 each N/A QS [facility] Stop: 01/04/24 00:00 Last Admin: 12/05/23 08:11 Dose: Not Given Ondansetron HCl (Ondansetron 4 Mg Od Tab) 4 mg PO Q8H PRN PRN Reason: NAUSEA/VOMITING Patiromer (Patiromer Calcium Sorbitex 8.4 Gm Pack) 8.4 gm PO Q2D@1200 [facility] Stop: 01/04/24 11:59 Vitamin B Complex/Folic Acid (Nephrocaps) 1 cap PO DAILY [facility] Stop: 01/04/24 08:59 Last Admin: 12/05/23 08:16 Dose: 1 cap (3) Pneumonia Laterality: unspecified laterality Lung location: unspecified part of lung Pneumonia type: due to unspecified organism Qualified Code(s): J18.9 - Pneumonia, unspecified organism
--- NOTE | 2023-12-05 09:35 | Nephrology Consultation ---
Date of Consultation December 05, 2023 Assessment & Plan (1) ESRD (end stage renal disease) on dialysis: Anuric ESRD patient needs Hospital admission a lot for Breathing issues. has rec Pl eff and now also has Viral infection. electrolytes are fine but would need 2k bath for 4 hrs and take 4 kilo off. Will do dialysis again tomorrow to get him back to schedule. do 3 hrs tomorrow. CVC is working fine. Not much Edema now--negative for DVT. will follow. (2) Acute on chronic hypoxic respiratory failure: (3) Parainfluenza infection: Currently has resp failure with Acute on chronic issue. Acute part related with Parainfluenzae infection and Some Fluid overload/Pulm edema. Should get better with Dialysis and fluid removal. Plan 4 kilo of UF today. Will do dialysis again tomorrow to get him back to schedule History of Present Illness Reason for Consultation: ESRD on dialysis Attending Physician: Nathan Lee MD History of Present Illness 68/M with ESRD on HD--MWF at [facility] with Dr Munson. 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 Currently has right permacath, chronic systolic CHF with EF 45 to 50%. Paroxysmal atrial flutter, valvular heart disorder, P ANCA vasculitis as per records, hypertension, aortic ectasia, history of TN and recurrent pleural effusion s/p multiple thoracocentesis and recurrent admissions for respiratory failure. He presented to [facility] ED due to SOB and generally feeling unwell and also c/o rt arm Swelling. Patient states he noticed increase in cough with sputum production over the course of 3-4 days. He denies fevers,chest pain or palpitations. Patient is on home oxygen at 1-2 L at baseline. Last pleural tap 11/22 with 300ml removed In the ED, vitals were notable for BP of 100s, HR of 100s, and O2 sat of low 80s initially requiring 4L and currently 5 lit. +ve for Parainfluenzae virus. CXR is mostly chronic finidngs but maybe Some pulm edema. Imaging revealed right UE doppler negative for DVT. Now getting dialysis as he did not get yesterday. ROS-- as detailed in HPI.12 Systems reviewed and is otherwise negative Physical Exam Physical Exam: GENERAL APPEARANCE: AxOx4, coughing on exam, otherwise no acute distress. HEENT: NC, AT. MMM. EOMI, clear conjunctiva, oropharynx clear. NECK: Supple without lymphadenopathy. No stiffness or restricted ROM. HEART: Normal rate and regular rhythm LUNGS: diminished bibasilar lung sounds and some crackles b/l ABDOMEN: Soft, nontender, nondistended with good bowel sounds heard. BACK: No CVAT, no obvious deformity. EXTREMITIES: Without cyanosis, clubbing; right upper extremity edema noted uniformly, no erythema or tenderness, r permacath without surround erythema NEUROLOGICAL: Grossly nonfocal. Alert and oriented, moving all 4 extremities. CN not formally tested but appear grossly intact. Observed to ambulate with normal gait. Skin: Warm and dry without any rash. Allergies Allergy/AdvReac Type Severity Reaction Status Date / Time No Known Allergies Allergy Verified 12/04/23 15:57 Home Medications Medication Instructions Recorded Confirmed Type atorvastatin 40 mg tablet 40 mg PO HS #30 tabs 03/28/23 12/04/23 Rx hydralazine 100 mg tablet 100 mg PO TID #90 tabs 03/28/23 12/04/23 Rx losartan 50 mg tablet (Cozaar) 50 mg PO AMHS #30 tabs 03/28/23 12/04/23 Rx ergocalciferol (vitamin D2) 1,250 1,250 mcg PO WK 04/15/23 12/04/23 History mcg (50,000 unit) capsule (Vitamin D2) amlodipine 10 mg tablet 10 mg PO DAILY 06/12/23 12/04/23 History allopurinol 100 mg tablet 100 mg PO DAILY 08/28/23 12/04/23 History guaifenesin 600 mg tablet, 600 mg PO BID PRN Congestion 08/28/23 12/04/23 History extended release 12 hr (Mucinex) isosorbide dinitrate 20 mg tablet 20 mg PO TID 08/28/23 12/04/23 History ondansetron HCl 4 mg tablet 4 mg PO Q8H PRN NAUSEA/VOMITING 08/28/23 12/04/23 History patiromer calcium sorbitex 8.4 8.4 g PO Q OTHER DAY 08/28/23 12/04/23 History gram oral powder packet (Veltassa) protein supplement 30 ea PO BID 08/28/23 12/04/23 History vitamin B complex with vit C-folic 1 tab PO DAILY 08/28/23 12/04/23 History acid 800 mcg-zinc 12.5 mg tablet (RenaPlex) metoprolol succinate 50 mg 50 mg PO HS #30 tabs 08/31/23 12/04/23 Rx tablet,extended release 24 hr amino acid-protein hyd 16 gram-100 30 ml PO DIRECTED 10/05/23 12/04/23 History kcal/30 mL oral liq meter-dose pump (Liquacel) ferric citrate 210 mg iron tablet 420 mg PO TIDWMEAL 10/05/23 12/04/23 History (Auryxia) Patient History Medical History Mild aortic stenosis Pulmonary hypertension PASP 45 mmHg on 08/2023 echo Aortic ectasia Secondary hyperparathyroidism History of TN (myocardial infarction) Heart valve disorder Paroxysmal atrial flutter Chronic respiratory failure Chest pain hx--not current issue SOB (shortness of breath) Pleural effusion chronic, recurrent AV fistula left arm Restless leg syndrome Surgical History History of colonoscopy H/O inguinal hernia repair History of cystoscopy Status post creation of arteriovenous fistula left arm History of tooth extraction History of thoracentesis Family History Other No family history of adverse response to anesthesia No significant family history Social History Smoking Status: Never smoker Tobacco Type: Cigarettes Second Hand Exposure: No; Do You Dip or Chew Tobacco: No; Hx Alcohol Use: No Hx Substance Use: No Preferred Language: Bangladeshi Communication Ability: Effective Communication Ability Comment: daughter speaks yoruba well, pt will need hydrant setter device Communication Tools: IPad Nurse Supervisor Required: No Beliefs That Will Affect Care: None marital status: Current Living Situation: Spouse current occupational status: employed Other Information That Helps Us Care for You: No Feels Safe at Home: Yes Safety Concerns: Feels Safe At This Time Assistive Devices: Glasses and Oxygen - Continuous Results & Data Vital Signs (Past 12 Hours) Vital Signs Temp Pulse Pulse Resp BP Pulse Ox O2 Del Method 12/05/23 07:14 36.9 C 83 20 156/80 H 95 Nasal Cannula 12/05/23 01:47 36.6 C 82 20 144/81 H 95 Nasal Cannula 12/04/23 23:01 37.4 C 90 20 132/80 94 Nasal Cannula 12/04/23 23:00 121 H O2 Flow Rate 12/05/23 07:14 5 12/05/23 01:47 5 12/04/23 23:01 5 12/04/23 23:00 Laboratory Results reviewed Diagnostic Findings reviewed
--- NOTE | 2023-12-05 15:47 | Pulmonary Consultation ---
Date of Consultation December 05, 2023 Assessment & Plan (1) Parainfluenza infection: Supportive management of parainfluenza infection. Not bronchospastic at this time. No role for steroids or nebulizer treatments currently. (2) Acute on chronic hypoxic respiratory failure: Continue to wean oxygen to maintain saturations above 89%. Patient baseline oxygen requirements are 2 L. (3) Acute on chronic combined systolic and diastolic CHF, NYHA class 3: Patient with evidence of acute on chronic CHF. Volume status management per nephrology with HD. (4) Chronic bilateral pleural effusions: His dyspnea symptoms are minimal at this time. He had a thoracentesis 11/23/2023. He would like to hold off on thoracentesis at this time as he feels that he is clinically improving with dialysis. I think this is reasonable at this time. Patient will likely need repeat thoracentesis within the next few days if symptoms did not return to baseline. Plan Thank you for the consult. Pulmonary will continue to follow with you. History of Present Illness Reason for Consultation: 68-year-old male readmitted to the hospital with hypoxia. Pulmonary is consulted to assist with management. Attending Physician: Nathan Lee MD History of Present Illness Patient well-known to the pulmonary service due to frequent hospital admissions related to hypoxia and recurrent pleural effusions bilaterally. Patient underwent dialysis today and will undergo dialysis tomorrow. He notes that his shortness of breath is improving. He tested positive for parainfluenza. He notes that he uses 2 L of oxygen chronically at home. He is now requiring 4 to 5 L. He denies any cough. He denies any shortness of breath at rest. He does endorse some fatigue related to dialysis. Chest x-ray obtained yesterday revealed left larger than right pleural effusion. Bilateral opacities noted consistent to be with pulmonary edema. Patient had a thoracentesis 11/23/2023 by radiology and were able to remove 300 mL's of juan carlos-colored fluid from the left pleural space. Allergies Allergy/AdvReac Type Severity Reaction Status Date / Time No Known Allergies Allergy Verified 12/04/23 15:57 Home Medications Medication Instructions Recorded Confirmed Type atorvastatin 40 mg tablet 40 mg PO HS #30 tabs 03/28/23 12/04/23 Rx hydralazine 100 mg tablet 100 mg PO TID #90 tabs 03/28/23 12/04/23 Rx losartan 50 mg tablet (Cozaar) 50 mg PO AMHS #30 tabs 03/28/23 12/04/23 Rx ergocalciferol (vitamin D2) 1,250 1,250 mcg PO WK 04/15/23 12/04/23 History mcg (50,000 unit) capsule (Vitamin D2) amlodipine 10 mg tablet 10 mg PO DAILY 06/12/23 12/04/23 History allopurinol 100 mg tablet 100 mg PO DAILY 08/28/23 12/04/23 History guaifenesin 600 mg tablet, 600 mg PO BID PRN Congestion 08/28/23 12/04/23 History extended release 12 hr (Mucinex) isosorbide dinitrate 20 mg tablet 20 mg PO TID 08/28/23 12/04/23 History ondansetron HCl 4 mg tablet 4 mg PO Q8H PRN NAUSEA/VOMITING 08/28/23 12/04/23 History patiromer calcium sorbitex 8.4 8.4 g PO Q OTHER DAY 08/28/23 12/04/23 History gram oral powder packet (Veltassa) protein supplement 30 ea PO BID 08/28/23 12/04/23 History vitamin B complex with vit C-folic 1 tab PO DAILY 08/28/23 12/04/23 History acid 800 mcg-zinc 12.5 mg tablet (RenaPlex) metoprolol succinate 50 mg 50 mg PO HS #30 tabs 08/31/23 12/04/23 Rx tablet,extended release 24 hr amino acid-protein hyd 16 gram-100 30 ml PO DIRECTED 10/05/23 12/04/23 History kcal/30 mL oral liq meter-dose pump (Liquacel) ferric citrate 210 mg iron tablet 420 mg PO TIDWMEAL 10/05/23 12/04/23 History (Auryxia) Patient History Medical History Mild aortic stenosis Pulmonary hypertension PASP 45 mmHg on 08/2023 echo Aortic ectasia Secondary hyperparathyroidism History of NH (myocardial infarction) Heart valve disorder Paroxysmal atrial flutter Chronic respiratory failure Chest pain hx--not current issue SOB (shortness of breath) Pleural effusion chronic, recurrent AV fistula left arm Restless leg syndrome Surgical History History of colonoscopy H/O inguinal hernia repair History of cystoscopy Status post creation of arteriovenous fistula left arm History of tooth extraction History of thoracentesis Family History Other No family history of adverse response to anesthesia No significant family history Social History Smoking Status: Never smoker Tobacco Type: Cigarettes Second Hand Exposure: No; Do You Dip or Chew Tobacco: No; Hx Alcohol Use: No Hx Substance Use: No Preferred Language: Tajik Communication Ability: Effective Communication Ability Comment: daughter speaks sa[place] arabian well, pt will need ophthalmic medical technologist device Communication Tools: IPad Manager Winter Required: No Beliefs That Will Affect Care: None marital status: Current Living Situation: Spouse current occupational status: employed Other Information That Helps Us Care for You: No Feels Safe at Home: Yes Safety Concerns: Feels Safe At This Time Assistive Devices: Oxygen - Continuous Review of Systems Review of Systems: All systems reviewed & are unremarkable except as noted in HPI & below Physical Exam Physical Exam: Constitutional: No acute distress HEENT: EOMI, PERRLA Respiratory system: Decreased air entry bilaterally, more decreased on the left, no wheeze, no rhonchi, positive crackles bilaterally CVS: S1-S2 positive, positive 3 out of 6 systolic murmur appreciated best at apex Abdomen: Soft, nontender, nondistended, positive bowel sounds x4 Extremities: +2 pulses bilaterally radialis/ dorsalis pedis, no cyanosis, minimal pitting edema bilateral lower extremity, left arm AVF Neuro: Awake alert oriented x3 Psych: Normal mood and affect G/U: No Fisher Skin: no rashes, warm and dry Lymphatic: no cervical or axillary lymphadenopathy Results & Data Results & Data Vital Signs (Past 12 Hours) Vital Signs Temp Pulse Pulse Pulse Pulse Resp BP 12/05/23 14:49 37.3 C 81 20 12/05/23 14:24 36.5 C 86 12/05/23 14:00 72 159/87 H 12/05/23 13:30 72 152/98 H 12/05/23 13:00 81 162/103 H 12/05/23 12:30 83 148/97 H 12/05/23 12:00 78 164/100 H 12/05/23 11:30 78 155/84 H 12/05/23 11:00 81 148/106 H 12/05/23 10:30 84 146/92 H 12/05/23 10:03 75 165/97 H 12/05/23 09:52 36.8 C 84 12/05/23 08:45 82 12/05/23 08:45 12/05/23 07:14 36.9 C 83 20 BP Pulse Ox O2 Del Method O2 Flow Rate 12/05/23 14:49 154/89 H 95 Nasal Cannula 5 12/05/23 14:24 163/104 H 12/05/23 14:00 12/05/23 13:30 12/05/23 13:00 12/05/23 12:30 12/05/23 12:00 12/05/23 11:30 12/05/23 11:00 12/05/23 10:30 12/05/23 10:03 12/05/23 09:52 12/05/23 08:45 12/05/23 08:45 Nasal Cannula 5 12/05/23 07:14 156/80 H 95 Nasal Cannula 5 PG Care Time/CCT Total # of Minutes Spent Total Time Spent with Patient: Total time spent is greater than 50% in coordination of care (as documented) at patient's floor/unit and/or counseling patient: Coding Level of Care Code 28178 INT INP/OBS CARE 2/55MIN Diagnoses Parainfluenza infection B34.8 Acute on chronic hypoxic respiratory failure J96.21 Acute on chronic combined systolic and diastolic CHF, NYHA class 3 I50.43 Chronic bilateral pleural effusions J90
[2023-12-05] MEDS: PATIROMER CALCIUM SORBITEX 8.4 GM PACK PO SCH (15:50)
[2023-12-06] MEDS ORDERED: SODIUM CHLORIDE 0.9% 1,000 ML IV PRN ×2 (07:00→08:29)
[2023-12-06 09:50] LABS: Hematocrit (blood only) 26.5 % (42.0-52.0); Hemoglobin 8.3 g/dl (14.0-18.0); Mean Corpuscular Hemoglobin 26.2 pg (25.0-34.0); Mean Corpuscular Hgb Conc 31.3 g/dL (32.0-36.0); Mean Corpuscular Volume 83.6 fL (80.0-100.0); Mean Platelet Volume 12.1 fL (9.4-12.4); Platelet Count 321 K/uL (130-400); RDW Coefficient of Variation 19.7 % (11.5-14.5); RDW Standard Deviation 60.5 fL (36.4-46.3); Red Blood Count 3.17 M/uL (4.70-6.10); White Blood Count 11.22 K/ul (4.8-10.8)
[2023-12-06 10:10] LABS: BUN Creatinine Ratio 4.4 (10-20); Calcium 8.5 mg/dl (8.6-10.3); Creatinine Clr Calc Pharmacy 9.5 ml/min; Est GFR (African American) 8.4 ml/min; Est GFR (Non-African American) 7.2 ml/min; Magnesium 1.9 mg/dl (1.7-2.4); Potassium 3.6 mmol/L (3.5-5.1)
[2023-12-06] MEDS: HEPARIN SOD (PORCINE) 1000 UNIT/ML IV SCH (10:58)
[2023-12-06] MEDS: HEPARIN SOD (PORCINE) 1000 UNIT/ML IV ONE (10:58)
--- NOTE | 2023-12-06 11:06 | Dialysis Progress Note ---
Date of Service December 06, 2023 Assessment & Plan Admission and Anticipated Discharge Date Admission Date: December 04, 2023 Subjective Assessment & Plan (1) ESRD (end stage renal disease) on dialysis: Anuric ESRD patient needs Hospital admission a lot for Breathing issues. has rec Pl eff and now also has Viral infection. electrolytes are fine but would need 2k bath for 3 hrs and take 3 kilo off. Stable for discharge from renal standpoint after dialysis today. CVC is working fine. Not much Edema now--negative for DVT. will follow. (2) Acute on chronic hypoxic respiratory failure: (3) Parainfluenza infection: Currently has resp failure with Acute on chronic issue. Acute part related with Parainfluenzae infection and Some Fluid overload/Pulm edema. Should get better with Dialysis and fluid removal. 3 kilo off today. reviewed pUlmonary note. S---Seen in dialysis. So far feeling fine. No cramp and no issues with dialysis. no SOB. Physical Exam Physical Exam: GENERAL APPEARANCE: AxOx4, coughing on exam, otherwise no acute distress. HEENT: NC, AT. MMM. EOMI, clear conjunctiva, oropharynx clear. NECK: Supple without lymphadenopathy. No stiffness or restricted ROM. HEART: Normal rate and regular rhythm LUNGS: diminished bibasilar lung sounds and some crackles b/l ABDOMEN: Soft, nontender, nondistended with good bowel sounds heard. BACK: No CVAT, no obvious deformity. EXTREMITIES: Without cyanosis, clubbing; right upper extremity edema noted uniformly, no erythema or tenderness, r permacath without surround erythema NEUROLOGICAL: Grossly nonfocal. Alert and oriented, moving all 4 extremities. CN not formally tested but appear grossly intact. Observed to ambulate with normal gait. Skin: Warm and dry without any rash. Results & Data Vital Signs (Past 12 Hours) Vital Signs Temp Pulse Pulse Pulse Resp BP BP 12/06/23 09:30 90 136/88 12/06/23 09:00 60 146/100 H 12/06/23 08:58 76 153/90 H 12/06/23 08:51 36.9 C 76 12/06/23 07:47 12/06/23 07:12 36.6 C 74 17 155/83 H 12/06/23 07:00 82 12/06/23 02:59 36.7 C 84 19 143/84 H Pulse Ox O2 Del Method O2 Flow Rate 12/06/23 09:30 12/06/23 09:00 12/06/23 08:58 12/06/23 08:51 12/06/23 07:47 Nasal Cannula 4 12/06/23 07:12 96 Nasal Cannula 3 12/06/23 07:00 12/06/23 02:59 92 Nasal Cannula
[2023-12-06] MEDS: EPOETIN ALFA 10,000 UNITS/ML VIAL IV ONE (11:16)
--- NOTE | 2023-12-06 16:15 | Hospitalist Progress Note ---
Date of Service December 06, 2023 Assessment & Plan (1) Acute on chronic hypoxic respiratory failure: (2) Parainfluenza infection: (3) Pneumonia: (4) Pleural effusion: Plan per previous hospitalist notes with addendum: Mr. 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 Multifactorial etiology--volume overload, recurrent pleural effusion, viral with ?superimposed bacterial infection Acute on chronic respiratory failure, multifactorial Recurrent pleural effusions URI with parainfluenza, concern for superimposed bacterial -Biofire +parainfluenza; CXR increased left pleural effusions (s/p Thora 11/22) -Schedule mucinex -flutter valve -Cefepime/Azitro -Sputum culture pending, procal 1.89 -Droplet precautions -Volume management per dialysis - had HD today, plan for another HD tmrw -Pulm. consulted for poss. thoracentesis 12/05 improving on 4 L s/p HD today wean off O2 accordingly- 1-2 L at baseline repeat CXR tomorrow RUE edema doppler negative, good subclavian waveforms reported; volume management per nephro dvt ppx Relative hypotension HTN SBP in low 100s despite min HD, took am medications -Hold home antihypertensives (Imdur, amlodipine, losartan) Continue Metorpolol, Monitor on tele - Bp seems stable overall Acute on chronic HFmrEF -volume overload iso ESRD, HD as tolerated- as above - s/p HD today Elevated troponin No chest pain, in the setting of CKD - likely falsely elevated/ multifactorial, low suspicion for ACS ESRD on HD nephrology consult potassium stable, no emergent HD needs noted - had HD HTN continue statin DVT hep sq PCU lives at home Admission and Anticipated Discharge Date Admission Date: December 04, 2023 Subjective ff up for hypoxia, etc seen resting in bed, comfortable on 4 L o2 states he feels improved overall shortness of breath is improving less cough no chest pain, dizziness, palpitations no fever/chills no other symptoms Review of Systems Review of Systems: all noted and negative except for above Physical Exam Physical Exam: General- oriented x 3, not in distress, speaks in sentences with no effort or accessory muscle use Eyes- anicteric Neck- no JVD Lungs- clear breath sounds bilaterally, no crackles/wheezing Heart- normal rate, regular rhythm; no murmurs Abdomen- normal bowel sounds, nondistended, soft, nontender Extremities- no pretibial edema, no calf tenderness Neuro- alert, oriented x 3; no gross focal neurologic deficits Skin- warm & dry Results & Data Results & Data Vital Signs (Past 12 Hours) Vital Signs Temp Pulse Pulse Resp BP BP Pulse Ox 12/06/23 14:46 37.3 C 88 17 136/85 95 12/06/23 12:10 36.8 C 81 162/86 H 12/06/23 11:30 70 117/83 12/06/23 11:00 65 142/93 H 12/06/23 10:30 79 145/84 H 12/06/23 10:00 69 145/82 H 12/06/23 09:30 90 136/88 12/06/23 09:00 60 146/100 H 12/06/23 08:58 76 153/90 H 12/06/23 08:51 36.9 C 76 12/06/23 07:47 12/06/23 07:12 36.6 C 74 17 155/83 H 96 12/06/23 07:00 82 O2 Del Method O2 Flow Rate 12/06/23 14:46 Nasal Cannula 5 12/06/23 12:10 12/06/23 11:30 12/06/23 11:00 12/06/23 10:30 12/06/23 10:00 12/06/23 09:30 12/06/23 09:00 12/06/23 08:58 12/06/23 08:51 12/06/23 07:47 Nasal Cannula 4 12/06/23 07:12 Nasal Cannula 3 12/06/23 07:00 all noted and reviewed including below (3) Pneumonia Laterality: unspecified laterality Lung location: unspecified part of lung Pneumonia type: due to unspecified organism Qualified Code(s): J18.9 - Pneumonia, unspecified organism
[2023-12-06] MEDS: ACETAMINOPHEN 325 MG TAB PO PRN (20:16)
[2023-12-07] MEDS: ADVANCED PROBIOTIC 625 MG CAPSULE PO SCH (14:02)
[2023-12-07] MEDS: DICLOFENAC SOD 1% GEL 100 GM TUBE EXT PRN (14:02)
--- NOTE | 2023-12-07 16:45 | Hospitalist Progress Note ---
Date of Service December 07, 2023 Assessment & Plan (1) Acute on chronic hypoxic respiratory failure: (2) Parainfluenza infection: (3) Pneumonia: (4) Pleural effusion: Plan per previous hospitalist notes with addendum: Mr. 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 Multifactorial etiology--volume overload, recurrent pleural effusion, viral with ?superimposed bacterial infection Acute on chronic respiratory failure, multifactorial Recurrent pleural effusions URI with parainfluenza, concern for superimposed bacterial -Biofire +parainfluenza; CXR increased left pleural effusions (s/p Thora 11/22) -Schedule mucinex -flutter valve -Cefepime/Azitro -Sputum culture pending, procal 1.89 -Droplet precautions -Volume management per dialysis - had HD today, plan for another HD tmrw -Pulm. consulted for poss. thoracentesis 12/05 improving on 4 L s/p HD today wean off O2 accordingly- 1-2 L at baseline 12/06 Continues to improve but still feels on the weak side Currently on 2 L of O2 by nasal cannula Continue antibiotics PT OT eval Monitor RUE edema doppler negative, good subclavian waveforms reported; volume management per nephro dvt ppx Relative hypotension HTN SBP in low 100s despite min HD, took am medications -Hold home antihypertensives (Imdur, amlodipine, losartan) Continue Metorpolol, Monitor on tele - Bp seems stable overall Acute on chronic HFmrEF -volume overload iso ESRD, HD as tolerated- as above Volume management per HD Elevated troponin No chest pain, in the setting of CKD - likely falsely elevated/ multifactorial, low suspicion for ACS ESRD on HD nephrology consult HTN continue statin DVT hep sq PCU lives at home Admission and Anticipated Discharge Date Admission Date: December 04, 2023 Subjective Follow-up for acute hypoxic respiratory failure, etc. Seen resting in bed, comfortable, not in distress States he still feels weak today Cough is improving Breathing is improving No other new symptoms Review of Systems Review of Systems: all noted and negative except for above Physical Exam Physical Exam: General- oriented x 3, not in distress, speaks in sentences with no effort or accessory muscle use Eyes- anicteric Neck- no JVD Lungs- clear breath sounds bilaterally, no crackles or wheezing Heart- normal rate, regular rhythm; no murmurs Abdomen- normal bowel sounds, nondistended, soft, nontender Extremities- no pretibial edema, no calf tenderness Neuro- alert, oriented x 3; no gross focal neurologic deficits Skin- warm & dry Results & Data Results & Data Vital Signs (Past 12 Hours) Vital Signs Temp Pulse Pulse Resp BP Pulse Ox O2 Del Method 12/07/23 14:45 36.9 C 86 16 136/78 97 Nasal Cannula 12/07/23 12:24 83 12/07/23 10:38 36.8 C 70 17 154/77 H 97 Nasal Cannula 12/07/23 08:35 Nasal Cannula 12/07/23 07:11 36.7 C 96 H 17 129/86 95 Nasal Cannula O2 Flow Rate 12/07/23 14:45 2 12/07/23 12:24 12/07/23 10:38 2 12/07/23 08:35 2 12/07/23 07:11 1 all noted and reviewed including below (3) Pneumonia Laterality: unspecified laterality Lung location: unspecified part of lung Pneumonia type: due to unspecified organism Qualified Code(s): J18.9 - Pneumonia, unspecified organism
[2023-12-08] MEDS ORDERED: SODIUM CHLORIDE 0.9% 1,000 ML IV PRN (07:00)
--- NOTE | 2023-12-08 09:44 | Dialysis Progress Note ---
Date of Service December 08, 2023 Assessment & Plan Admission and Anticipated Discharge Date Admission Date: December 04, 2023 Subjective Subjective Assessment & Plan (1) ESRD (end stage renal disease) on dialysis: Anuric ESRD patient needs Hospital admission a lot for Breathing issues. has rec Pl eff and now also has Viral infection. electrolytes are fine but would need 2k bath for 3 hrs and take 2-2.5 kilo off. Stable for discharge from renal standpoint after dialysis today. CVC is working fine. Not much Edema now--negative for DVT. will follow. On 1 liters o2 which is baseline. (2) Acute on chronic hypoxic respiratory failure: (3) Parainfluenza infection: Currently has resp failure with Acute on chronic issue. Acute part related with Parainfluenzae infection and Some Fluid overload/Pulm edema. Should get better with Dialysis and fluid removal. 3 kilo off today. reviewed pulmonary note. S---Seen in dialysis. So far feeling fine. No cramp and no issues with dialysis. no SOB. Physical Exam Physical Exam: GENERAL APPEARANCE: AxOx4, coughing on exam, otherwise no acute distress. HEENT: NC, AT. MMM. EOMI, clear conjunctiva, oropharynx clear. NECK: Supple without lymphadenopathy. No stiffness or restricted ROM. HEART: Normal rate and regular rhythm LUNGS: diminished bibasilar lung sounds and some crackles b/l ABDOMEN: Soft, nontender, nondistended with good bowel sounds heard. BACK: No CVAT, no obvious deformity. EXTREMITIES: Without cyanosis, clubbing; right upper extremity edema noted uniformly, no erythema or tenderness, r permacath without surround erythema NEUROLOGICAL: Grossly nonfocal. Alert and oriented, moving all 4 extremities. CN not formally tested but appear grossly intact. Observed to ambulate with normal gait. Skin: Warm and dry without any rash. Results & Data Vital Signs (Past 12 Hours) Vital Signs Temp Pulse Pulse Pulse Resp BP BP 12/08/23 09:30 79 121/73 12/08/23 09:05 68 140/72 12/08/23 08:58 36.7 C 67 12/08/23 07:36 36.8 C 80 18 149/78 H 12/08/23 02:45 36.8 C 83 18 158/79 H 12/08/23 00:13 84 05/16/24 23:35 36.7 C 80 18 167/77 H Pulse Ox O2 Del Method O2 Flow Rate 12/08/23 09:30 12/08/23 09:05 12/08/23 08:58 12/08/23 07:36 92 Nasal Cannula 1 12/08/23 02:45 97 Nasal Cannula 1 12/08/23 00:13 12/07/23 23:35 96 Nasal Cannula 1
[2023-12-08] MEDS: EPOETIN ALFA 20,000 UNITS/ML VIAL IV ONE (10:59)
[2023-12-08] MEDS: HEPARIN SOD (PORCINE) 1000 UNIT/ML IV ONE (11:10)
[2023-12-08] MEDS: HEPARIN SOD (PORCINE) 1000 UNIT/ML IV SCH (11:10)
--- NOTE | 2023-12-08 14:27 | Discharge Summary ---
Discharge Summary Date of Service December 08, 2023 Notes For Next Care Provider Medication Changes From Visit Augmentin 500mg daily x 2 days Admission HPI Per Admitting Provider Mr. 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 Paroxysmal atrial flutter, valvular heart disorder, P ANCA vasculitis as per records, hypertension, aortic ectasia, history of VA, anemia of chronic disease, secondary hyperparathyroidism, hyperlipidemia,recurrent pleural effusion s/p multiple thoracocentesis and recurrent admissions for respiratory failure presented to [facility] ED due to SOB and generally feeling unwell. Patient states he noticed increase in cough with sputum production over the course of 3-4 days. He denies fevers, but endorses general fatigue. He denies cough at baseline. He denies chest pain or palpitations. He reports RUE swelling as of this morning, but denies pain in his extremity or at site of permacath Patient is on home oxygen at 1 L at baseline. Patient did not take medications this morning. Last thora 11/22 with 300ml removed In the ED, vitals were notable for BP of 100s, HR of 100s, and O2 sat of low 80s initially requiring 4L, but now at 1.5L Imaging revealed right UE doppler negative for DVT, moderate left pleural effusion with pulm edema noted, right sided opacities noted as well with ?edema v infectious EKG sinus with pacs ED interventions: none Consultants: nephrology Patient to be admitted to pcu/tele for further evaluation and management of SOB, multifactorial pneumonia, recurrent effusion, volume overload Principal Dx & Hospital Course #1 = Principal Diagnosis (1) Acute on chronic hypoxic respiratory failure: (2) Parainfluenza infection: (3) Pneumonia: (4) Pleural effusion: Plan per previous hospitalist notes with addendum: Mr. 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 Multifactorial etiology--volume overload, recurrent pleural effusion, viral with ?superimposed bacterial infection Acute on chronic respiratory failure, multifactorial Recurrent pleural effusions URI with parainfluenza, concern for superimposed bacterial -Biofire +parainfluenza; CXR increased left pleural effusions (s/p Thora 11/22) -Schedule mucinex -flutter valve -Cefepime/Azitro -Sputum culture pending, procal 1.89 -Droplet precautions -Volume management per dialysis - had HD today, plan for another HD tmrw -Pulm. consulted for poss. thoracentesis 12/05 improving on 4 L s/p HD today wean off O2 accordingly- 1-2 L at baseline 12/06 Continues to improve but still feels on the weak side Currently on 2 L of O2 by nasal cannula Continue antibiotics PT OT eval Monitor 12/07 much better back to baseline o2 supplement completed 5 days of Azithromycin and Cefepime will need 2 more days of Augmentin RUE edema doppler negative, good subclavian waveforms reported; volume management per nephro Relative hypotension HTN SBP in low 100s despite min HD, took am medications - Hold Hydralazine, Imdur, Losartan Continue Metoprolol, Amlodipine - monitor as outpatient Acute on chronic HFmrEF - volume overload iso ESRD, HD as tolerated- as above Volume management per HD Elevated troponin - No chest pain, in the setting of CKD - likely falsely elevated/ multifactorial, low suspicion for ACS ESRD on HD nephrology consult HTN continue statin DVT hep sq PCU ff up with PCP in 1 week HD per nephro Discharge Exam General- oriented x 3, not in distress, speaks in sentences with no effort or accessory muscle use Eyes- anicteric Neck- no JVD Lungs- very mild rales at the right base, clear on the left Heart- normal rate, regular rhythm; no murmurs Abdomen- normal bowel sounds, nondistended, soft, nontender Extremities- no pretibial edema, no calf tenderness Neuro- alert, oriented x 3; no gross focal neurologic deficits Skin- warm & dry Updated Medication List Medication Instructions Recorded Confirmed Type atorvastatin 40 mg tablet 40 mg PO HS #30 tabs 03/28/23 12/04/23 Rx ergocalciferol (vitamin D2) 1,250 1,250 mcg PO WK 04/15/23 12/04/23 History mcg (50,000 unit) capsule (Vitamin D2) amlodipine 10 mg tablet 10 mg PO DAILY 06/12/23 12/04/23 History allopurinol 100 mg tablet 100 mg PO DAILY 08/28/23 12/04/23 History guaifenesin 600 mg tablet, 600 mg PO BID PRN Congestion 08/28/23 12/04/23 History extended release 12 hr (Mucinex) ondansetron HCl 4 mg tablet 4 mg PO Q8H PRN NAUSEA/VOMITING 08/28/23 12/04/23 History patiromer calcium sorbitex 8.4 8.4 g PO Q OTHER DAY 08/28/23 12/04/23 History gram oral powder packet (Veltassa) protein supplement 30 ea PO BID 08/28/23 12/04/23 History vitamin B complex with vit C-folic 1 tab PO DAILY 08/28/23 12/04/23 History acid 800 mcg-zinc 12.5 mg tablet (RenaPlex) metoprolol succinate 50 mg 50 mg PO HS #30 tabs 08/31/23 12/04/23 Rx tablet,extended release 24 hr amino acid-protein hyd 16 gram-100 30 ml PO DIRECTED 10/05/23 12/04/23 History kcal/30 mL oral liq meter-dose pump (Liquacel) ferric citrate 210 mg iron tablet 420 mg PO TIDWMEAL 10/05/23 12/04/23 History (Auryxia) L.acidop,casei,lactis,rham-B.lact,isabel 1 cap PO DAILY 14 days #14 caps 12/08/23 Rx 625 mg (10 billion cell) capsule (Advanced Probiotic) amoxicillin 500 mg-potassium 1 tab PO DAILY #2 tabs 12/08/23 Rx clavulanate 125 mg tablet Hospital Stay Data Consultations 12/04/23 16:10 ED Decision to Admit Stat 12/04/23 16:46 Consult Nephrology Routine 12/04/23 18:29 Consult Pulmonology Routine Diagnostic Imagining Performed Laboratory Results WBC 11.22 K/ul (4.8-10.8) H 12/06/23 09:23 RBC 3.17 M/uL (4.70-6.10) L 12/06/23 09:23 Hgb 8.3 g/dl (14.0-18.0) L 12/06/23 09:23 Hct 26.5 % (42.0-52.0) L 12/06/23 09:23 MCV 83.6 fL (80.0-100.0) 12/06/23 09: MCH 26.2 pg (25.0-34.0) 12/06/23 09: MCHC 31.3 g/dL (32.0-36.0) L 12/06/23 09: RDW Std Deviation 60.5 fL (36.4-46.3) H 12/06/23 09: RDW Coeff of Diamond 19.7 % (11.5-14.5) H 12/06/23 09: Plt Count 321 K/uL (130-400) 12/06/23 09: MPV 12.1 fL (9.4-12.4) 12/06/23 09: Immature Gran % (Auto) 0.6 % 12/04/23 14: Neut % (Auto) 84.0 % 12/04/23 14: Lymph % (Auto) 5.8 % 12/04/23 14: Finney % (Auto) 9.0 % 12/04/23 14:24 Eos % (Auto) 0.3 % 12/04/23 14:24 Baso % (Auto) 0.3 % 12/04/23 14:24 Neut # (Auto) 11.70 K/uL (1.40-6.50) H 12/04/23 14:24 Lymph # (Auto) 0.81 K/uL (1.20-3.40) L 12/04/23 14:24 Finney # (Auto) 1.26 K/uL (0.11-0.59) H 12/04/23 14:24 Eos # (Auto) 0.04 K/uL (0.00-0.50) 12/04/23 14:24 Baso # (Auto) 0.04 K/uL (0.00-0.20) 12/04/23 14:24 Immature Gran # (Auto) 0.09 K/uL (0.01-0.20) 12/04/23 14:24 PT 11.6 Seconds (9.0-12.0) 12/04/23 14:24 INR 1.1 (0.9-1.1) 12/04/23 14:24 APTT 33 Seconds (21-31) H 12/04/23 14:24 PTT Ratio 1.2 12/04/23 14:24 Sodium 140 mmol/L (136-145) 12/06/23 09:23 Potassium 3.6 mmol/L (3.5-5.1) 12/06/23 09:23 Chloride 102 mmol/L (98-107) 12/06/23 09:23 Carbon Dioxide 29 mmol/L (21-32) 12/06/23 09:23 Anion Gap 9 (3-11) 12/06/23 09:23 BUN 31 mg/dl (6-23) H D 12/06/23 09:23 Creatinine 7.03 mg/dl (0.6-1.4) H* D 12/06/23 09:23 Est Cr Clr Drug Dosing 9.5 ml/min 12/06/23 09:23 Est GFR ( Amer) 8.4 ml/min 12/06/23 09:23 Est GFR (Non-Af Amer) 7.2 ml/min 12/06/23 09:23 BUN/Creatinine Ratio 4.4 (10-20) L 12/06/23 09:23 Glucose 90 mg/dl (70-99(Fasting)) 12/06/23 09:23 POC Glucose 126 mg/dl (70-99) H 12/05/23 09:08 Calcium 8.5 mg/dl (8.6-10.3) L 12/06/23 09:23 Phosphorus 3.0 mg/dl (2.5-4.9) 12/06/23 09:23 Magnesium 1.9 mg/dl (1.7-2.4) 12/06/23 09:23 Total Bilirubin 0.6 mg/dl (0.2-1.0) 12/04/23 14:24 AST 21 U/L (13-39) 12/04/23 14:24 ALT 26 U/L (7-52) 12/04/23 14:24 Alkaline Phosphatase 52 U/L (34-104) 12/04/23 14:24 Troponin I High Sens 993.5 pg/ml (0-20) H* D 12/04/23 19:55 Total Protein 5.8 gm/dl (6.0-8.3) L 12/04/23 14:24 Albumin 3.1 gm/dl (3.4-5.0) L 12/04/23 14:24 Globulin 2.7 gm/dl (2.5-4.0) 12/04/23 14:24 Albumin/Globulin Ratio 1.1 (0.9-2) 12/04/23 14:24 Procalcitonin 1.89 ng/ml (0-0.5) H 12/04/23 14:25 Nasal Screen MRSA (PCR) Negative (Negative) 12/04/23 Unknown Adenovirus (PCR) Not Detected (NotDetected) 12/04/23 12:36 B. pertussis DNA (PCR) Not Detected (NotDetected) 12/04/23 12:36 B.parapertussis DNA PCR Not Detected (NotDetected) 12/04/23 12:36 C. pneumoniae DNA (PCR) Not Detected (NotDetected) 12/04/23 12:36 Coronavirus OC43 (PCR) Not Detected (NotDetected) 12/04/23 12:36 Coronavirus HKU1 (PCR) Not Detected (NotDetected) 12/04/23 12:36 Coronavirus 229E (PCR) Not Detected (NotDetected) 12/04/23 12:36 SARS-CoV-2 (PCR) Not Detected (NotDetected) 12/04/23 12:36 Coronavirus NL63 (PCR) Not Detected (NotDetected) 12/04/23 12:36 Human Metapneumovir PCR Not Detected (NotDetected) 12/04/23 12:36 Influenza Type A (PCR) Not Detected (NotDetected) 12/04/23 12:36 Influenza Type B (PCR) Not Detected (NotDetected) 12/04/23 12:36 M. pneumoniae (PCR) Not Detected (NotDetected) 12/04/23 12:36 Parainfluenza 1 (PCR) Not Detected (NotDetected) 12/04/23 12:36 Parainfluenza 2 (PCR) Not Detected (NotDetected) 12/04/23 12:36 Parainfluenza 3 (PCR) DETECTED (NotDetected) A 12/04/23 12:36 Parainfluenza 4 (PCR) Not Detected (NotDetected) 12/04/23 12:36 RSV (PCR) Not Detected (NotDetected) 12/04/23 12:36 Entero/Rhino (PCR) Not Detected (NotDetected) 12/04/23 12:36 Impressions Chest X-Ray 12/04/23 13:21 SINGLE VIEW CHEST CLINICAL HISTORY: Dyspnea FINDINGS: An AP upright chest radiograph is compared to study dated 11/23/2023. Correlation is made with chest CT dated 06/12/2023. A right internal jugular central venous catheter is unchanged position. The heart is enlarged noting atherosclerotic calcification of the thoracic aorta. There is pulmonary vascular congestion. Bilateral airspace opacities likely represent pulmonary edema. There are left larger than right pleural effusions with dependent consolidation. No pneumothorax is seen. Ovoid left basilar opacities are similar to previous and indeterminant. The skeletal structures are osteopenic. The bony thorax is grossly intact. Degenerative change is noted in the shoulders and spine. IMPRESSION: 1. Cardiomegaly without evidence of congestive failure. 2. Bilateral airspace opacities likely represent pulmonary edema. Correlate clinically. Radiographic follow-up to resolution is recommended. 3. Left larger than right pleural effusions with dependent consolidation. ACT 112: Negative or not required by law. Electronically signed by: Tone Mccain M.D. 12/04/2023 1:43 PM Venous Doppler Study 12/04/23 13:21 ULTRASOUND RIGHT UPPER EXTREMITY VENOUS CLINICAL HISTORY: Acute pain and swelling of the right upper extremity. COMPARISON STUDY: None. TECHNIQUE: Real-time, grayscale, and color Doppler sonography of the deep veins of the right upper extremity is performed. Compression and augmentation were utilized. FINDINGS: There is no sonographic evidence of deep venous thrombosis identified in the right upper extremity. The right internal jugular, axillary, and brachial veins are patent and normally compressible. Normal venous waveforms and augmentation are seen within the right subclavian vein. The cephalic and basilic veins are clear. The visualized radial and ulnar veins are patent. A right subclavian valve incidentally noted. IMPRESSION: There is no sonographic evidence of deep venous thrombosis identified in the right upper extremity. ACT 112: Negative or not required by law. Electronically signed by: Chip Henderson M.D. 12/04/2023 3:54 PM 12/04/23 13:21 US venous doppler UE RT Stat Discharge Instructions Given to Patient (Per Discharging Provider) PLEASE REFER TO YOUR NEW MEDICATION LIST AND FOLLOW INSTRUCTIONS CAREFULLY. YOUR NEW MEDICATIONS INCLUDE: Augmentin- antibiotic, for possible bronchitis, administer after dialysis Hold Hydralazine, Isosorbide dinitrate, Losartan for now. Take a probiotic daily x 10 days at least. FOLLOW UP WITH PRIMARY CARE PHYSICIAN OUTLINED ABOVE. PLEASE CALL YOUR PRIMARY CARE PHYSICIAN OR RETURN TO THE ER IF WITH WORSENING OF SYMPTOMS, INCLUDING cough, shortness of breath, fever/chills, sputum production, weakness, etc FOLLOW UP WITH PRIMARY CARE PHYSICIAN OUTLINED ABOVE. Total Time Total Time Spent Total Time Spent (In Minutes): 35 minutes
== END 2023-12-08 16:05 | disposition home or self-care (01) | DRG 189 ==
LOC: ED 12:21 → SUATTDRO 16:23 → 4W 16:23

== ENCOUNTER 2024-01-15 12:25 | Inpatient (IN) ==
[2024-01-15 14:02] LABS: Base Excess VBG 6.6 mEq/L; HCO3 VBG 32 mmol/L; Oxygen Saturation VBG 64.5 %; PCO2 VBG 52 mmHg (38-50); PO2 VBG 38 mmHg
[2024-01-15 14:28] LABS: Influenza A virus by PCR Negative (Neg); Influenza B virus by PCR Negative (Neg); RSV by PCR Negative (Neg); SARS CoV2 RNA(COVID-19) Ceph NEGATIVE (Negative)
--- NOTE | 2024-01-15 14:31 | Emergency Department Note ---
Impression & Plan Dyspnea, Hypoxia, Weakness, CKD (chronic kidney disease), Pulmonary edema, Pleural effusion ED Provider Note ED Provider Note NAME: DIMAS ERVIN AGE:68 SEX: Male : 1955 ARRIVES VIA: EMS INFORMANT: Patient ED PROVIDER(s): Jennifer Alva DO CHIEF COMPLAINT: Shortness of breath, weakness, sent from dialysis HPI: This is a 68-year-old who presents emergency room complaining of increased shortness of breath. Patient states he went to dialysis on his usual 1.5 L/min of oxygen. After he started dialysis nursing staff stated they noted his oxygen was 77% and turned him up to 5 L/min. He is oxygen improved however they were concerned and called 911. Patient states he has had increased weakness and shortness of breath with exertion over the last 2 to 3 days. He states he feels fine at rest. Patient states he did have a thoracentesis performed on January 04, 2024. He states he has had these intermittently as he developed fluid collections in the lung. He states he had intermittent chest discomfort although denies that it was overtly painful. No recent change in diet or his medications. Patient has not missed any recent episodes of dialysis. He states Dr. Garvin is his instructional design manager. Information obtained with assistance of language line immigration services officerGinny #[id number]. PAST MEDICAL HISTORY:See Below PAST SURGICAL HISTORY:See Below FAMILY HISTORY:See Below SOCIAL HISTORY:See Below HOME MEDICATIONS:See Below ALLERGIES:See Below VITALS:See Below PHYSICAL EXAMINATION: GENERAL: alert, well appearing, well nourished, no distress, non-toxic EYE EXAM: normal conjunctiva, PERRL and EOM's grossly intact OROPHARYNX: no exudate, no erythema, lips, buccal mucosa, and tongue normal and mucous membranes are moist NECK: supple, no nuchal rigidity, no adenopathy, non-tender LUNGS: Clear to auscultation. Normal chest wall mechanics, no w/r/r HEART: no murmurs, S1 normal and S2 normal, dialysis catheter noted right anterior superior chest wall ABDOMEN: abdomen soft, non-tender, normo-active bowel sounds, no masses, no rebound or guarding. SKIN: no rashes, petechiae, orbruising UPPER EXTREMITIES: upper extremities are grossly normal. FROM, nml pulses b/l. LOWER EXTREMITIES: No pitting edema. FROM, nml pulses b/l. NEURO EXAM: Normal sensorium, cranial nerves II-XII grossly intact, normal speech, no facial droop,nogross weakness of arms, no gross weakness of legs. Gross sensation intact. No ataxia. Vital Signs: reviewed and remarkable Differential Diagnosis: pneumonia, bronchitis, COPD/Asthma exacerbation, pneumothorax, pulmonary embolism, congestive heart failure, acute coronary syndrome, as well as others were considered MEDICAL DECISION MAKING: This is a 68-year-old male presents emerged department from dialysis due to concern for hypoxia by dialysis staff. Patient reports 2 to 3 days of increased dyspnea with exertion, weakness and intermittent dizziness. Labs are drawn and sent, IV established, EKG and chest ray performed bedside interpreted by me and patient monitored on telemetry. Case discussed with patient's instructional design manager, Dr. Garvin, who was in agreement with plan for admission. She states staff there was also concerned about infection as the patient appeared to have rigors today additionally. Blood cultures and procalcitonin added and we discussed empiric IV antibiotics. Patient was given vancomycin and cefepime. She had already made staff aware of need for dialysis here at the hospital. Patient was updated on this plan, verbalized understanding, and was in agreement. Patient was noted to initially be maintaining sats in the low to mid 90s on 5 L/min via nasal cannula. While awaiting hospitalist evaluation and bed placement he began to become more hypoxic and tachypneic and was titrated up to an oximask at 15 L/min with improvement. Patient was noted to have an intermittent cough although denies feeling short of breath. Discussed with the hospitalist team for additional evaluation and management. Consultation(s): [id number]: Discussed with Dr. Garvin, nephrology. She states nurses who saw the patient this morning in dialysis also noted he had possible rigors. She feels blood cultures are likely warranted additionally. We also discussed empiric antibiotics. She is already notified dialysis staff of need for dialysis today. She feels patient should be dialyzed and monitored in the ICU tonight into tomorrow before being transitioned out. 1535: Discussed with [facility] hospitalist team for additional evaluation and management, patient to be admitted under Dr. Sahu. ER Treatment Provided: See below Diagnostics Interpreted By Me: -ECG: Normal sinus at 71 with first-degree AV block, normal axis, normal intervals, PVC noted, nonspecific ST/T wave changes -Cardiac Monitoring: An order was placed for continuous cardiac monitoring. The monitor shows a rate of 78 with normal sinus rhythm. -Laboratory studies: As stated above and show below. -Imaging studies: Chest x-ray: Dialysis catheter noted, mild cardiomegaly, left pleural effusion noted, scattered patchy interstitial markings bilaterally Triage Nursing Note Reviewed Prior/Outside Records Reviewed Past Med/Surg History Problem List (Updated 01/16/24 @ 00:24 by Jennifer Alva DO) Pleural effusion (Acute) Pulmonary edema (Acute) CKD (chronic kidney disease) (Acute) Weakness (Acute) Hypoxia (Acute) Dyspnea (Acute) Chronic bilateral pleural effusions Acute on chronic combined systolic and diastolic CHF, NYHA class 3 entered into EMR 12/05/23 Parainfluenza infection (Acute) entered into EMR 12/04/23 and last edited 12/05/23 Acute on chronic hypoxic respiratory failure (Acute) entered into EMR 12/04/23 HLD (hyperlipidemia) Chronic CHF Chronic hypoxic respiratory failure Hemodialysis AV fistula thrombosis Shortness of breath (Acute) entered into EMR 10/05/23 CHF (congestive heart failure) (Acute) EF 45-50% on 08/2023 echo Hypertensive heart disease Medically noncompliant Chest pain (Acute) entered into EMR 06/12/23 Acute hyperkalemia (Acute) entered into EMR 06/12/23 Renal failure (ARF), acute on chronic (Acute) entered into EMR 05/17/23 Pneumonia (Acute) entered into chart 04/15/23 Hypertensive urgency (Acute) entered into EMR 03/26/23 Dialysis patient (Acute) Acute heart failure with reduced ejection fraction and diastolic dysfunction entered into EMR 12/06/22 Acute hypoxemic respiratory failure entered into EMR 12/05/22 and last edited 11/07/23 Hypoxia (Acute) entered into EMR 12/05/22 PD catheter dysfunction Peritonitis associated with peritoneal dialysis entered into EMR 11/10/22 Anemia of chronic disease Dyspnea (Acute) entered into EMR 11/10/22 Abdominal pain (Acute) entered into EMR 11/10/22 Peritoneal dialysis catheter in situ Fluid overload (Acute) entered into EMR 09/11/22 and last edited 11/07/23 Hyperkalemia entered into EMR 08/20/22 and last activated 11/08/23 ESRD (end stage renal disease) on dialysis (Acute) HD patient follows w/ Dr Munson [facility]: M, W and F per [facility] RN notation. 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 Elevated troponin (Acute) 12/04/23 Body aches (Acute) entered into EMR 06/12/22 Cough (Acute) entered into EMR 06/12/22 Precordial chest pain (Acute) entered into EMR 06/12/22 Encounter for pre-operative examination Kidney transplant candidate Hypertension Right groin pain entered into EMR 07/22/19 Nephrolithiasis (Acute) Hematuria, microscopic (Acute) Benign prostatic hyperplasia with urinary obstruction (Acute) Medical History History of pneumonia History of peritonitis d/t peritoneal dialysis catheter History of nephrolithiasis Hypertensive heart disease Hyperlipidemia Hypertension History of hematuria ESRD (end stage renal disease) on dialysis HD patient follows w/ Dr Munson [facility]: M, W and F Chronic bilateral pleural effusions multiple thoracentesis--last 01/04/24 BPH (benign prostatic hyperplasia) Chronic anemia Chronic combined systolic and diastolic CHF, NYHA class 3 EF 45-50% on 08/2023 echo History of hyperkalemia On home oxygen therapy 1.5L Mild aortic stenosis Pulmonary hypertension PASP 45 mmHg on 08/2023 echo Aortic ectasia Secondary hyperparathyroidism History of MO (myocardial infarction) follows with [facility] Paroxysmal atrial flutter Chronic respiratory failure wears oxygen 1.5L Chest pain hx 2022--not current issue SOB (shortness of breath) entered into EMR 01/01/23 AV fistula left arm Restless leg syndrome Surgical History S/P hemodialysis catheter insertion 11/08/23 Perm cath placed into Right IJ @ [facility] Dr. Viera History of colonoscopy H/O inguinal hernia repair History of cystoscopy Status post creation of arteriovenous fistula left arm History of tooth extraction History of thoracentesis multiple, most recent 01-04-[address] [facility] Family History Other No family history of adverse response to anesthesia No significant family history Social History Smoking Status: Unknown if ever smoked Tobacco Type: Cigarettes Second Hand Exposure: No; Do You Dip or Chew Tobacco: No; Hx Alcohol Use: No Hx Substance Use: No Preferred Language: Mexican Communication Ability: Effective Communication Ability Comment: daughters speaks salvadorean well, pt will need immigration services officer device Communication Tools: IPad Elevator Technician Required: Yes Beliefs That Will Affect Care: None marital status: Current Living Situation: Spouse current occupational status: employed Other Information That Helps Us Care for You: No Feels Safe at Home: Yes Safety Concerns: Feels Safe At This Time Assistive Devices: Glasses and Oxygen - Continuous Allergies Allergies Allergy/AdvReac Type Severity Reaction Status Date / Time No Known Allergies Allergy Verified 01/11/24 11:51 Home Meds Home Medications Medication Instructions Recorded Confirmed allopurinol 100 mg tablet 100 mg PO QAM 08/28/23 01/15/24 ondansetron HCl 4 mg tablet 4 mg PO Q8H PRN NAUSEA/VOMITING 08/28/23 01/15/24 patiromer calcium sorbitex 8.4 8.4 g PO Q OTHER DAY 08/28/23 01/15/24 gram oral powder packet (Veltassa) amino acid-protein hyd 16 gram-100 30 ml PO AMHS 10/05/23 01/15/24 kcal/30 mL oral liq meter-dose pump (Liquacel) hydralazine 100 mg tablet 100 mg PO TID 01/11/24 01/15/24 isosorbide dinitrate 20 mg tablet 20 mg PO TID 01/11/24 01/15/24 losartan 50 mg tablet 50 mg PO AMHS 01/11/24 01/15/24 sevelamer carbonate 800 mg tablet 800 mg PO TIDM 01/11/24 01/15/24 (Renvela) L.acidop,casei,lactis,rham-B.lact,isabel 1 cap PO DAILY 01/15/24 01/15/24 625 mg (10 billion cell) capsule (Advanced Probiotic) acetaminophen 325 mg tablet 650 mg PO Q4 PRN Pain 01/15/24 01/15/24 ferric citrate 210 mg iron tablet 1 - 2 tab PO UD 01/15/24 01/15/24 (Auryxia) fluticasone propionate 50 2 spray intranasal QAM 01/15/24 01/15/24 mcg/actuation nasal spray,suspension gabapentin 100 mg capsule 100 mg PO UD 01/15/24 01/15/24 metoprolol succinate 50 mg 50 mg PO BID 01/15/24 01/15/24 tablet,extended release 24 hr vitamin B complex with vit C-folic 1 tab PO DAILY 01/15/24 01/15/24 acid 800 mcg-zinc 12.5 mg tablet (RenaPlex) Previous Rx's Medication Instructions Recorded atorvastatin 40 mg tablet 40 mg PO HS #30 tabs 03/28/23 Results & Data (ED) Vital Signs Vital Signs - 24 hr 01/15/24 12:13 01/15/24 12:13 01/15/24 12:13 Temperature 36.8 C Temperature Source Oral Pulse Rate 75 70 Pulse Rate [Apical] Pulse Rhythm Regular Pulse Rhythm [Apical] Pulse Strength [Apical] Respiratory Rate 20 18 Respiratory Effort / Characteristics Non-Labored Spontaneous Respiratory Depth Normal Respiratory Pattern Blood Pressure 155/101 H Blood Pressure [Right Arm] Blood Pressure Mean 119 Blood Pressure Mean [Right Arm] Pulse Oximetry 94 94 94 Oxygen Delivery Method Nasal Cannula Nasal Cannula Nasal Cannula Oxygen Flow Rate 5 5 5 Sepsis Recent Fever Within 48 Hours No Sepsis New/Unexplained Change in Mental Status N/A Sepsis Action Taken by Nursing No Action Required 01/15/24 13:39 01/15/24 13:56 01/15/24 14:15 Temperature Temperature Source Pulse Rate 70 68 Pulse Rate [Apical] 74 Pulse Rhythm Pulse Rhythm [Apical] Regular Pulse Strength [Apical] Normal Respiratory Rate 18 18 Respiratory Effort / Characteristics Non-Labored Spontaneous Respiratory Depth Normal Respiratory Pattern Regular Blood Pressure Blood Pressure [Right Arm] Blood Pressure Mean Blood Pressure Mean [Right Arm] Pulse Oximetry 94 91 Oxygen Delivery Method Nasal Cannula Room Air Oxygen Flow Rate 5 Sepsis Recent Fever Within 48 Hours Sepsis New/Unexplained Change in Mental Status Sepsis Action Taken by Nursing 01/15/24 15:35 Temperature Temperature Source Pulse Rate Pulse Rate [Apical] 75 Pulse Rhythm Pulse Rhythm [Apical] Pulse Strength [Apical] Respiratory Rate 34 H Respiratory Effort / Characteristics Respiratory Depth Respiratory Pattern Blood Pressure Blood Pressure [Right Arm] 165/91 H Blood Pressure Mean Blood Pressure Mean [Right Arm] 115 Pulse Oximetry 92 Oxygen Delivery Method Oxymask Oxygen Flow Rate 15 Sepsis Recent Fever Within 48 Hours Sepsis New/Unexplained Change in Mental Status Sepsis Action Taken by Nursing Laboratory Data 01/15/24 13:13 01/15/24 13:13 Lab Results 01/15/24 01/15/24 01/15/24 Range/Units 13:13 13:15 16:02 WBC 9.54 (4.8-10.8) K/ul RBC 2.92 L (4.70-6.10) M/uL Hgb 7.1 L (14.0-18.0) g/dl Hct 23.8 L (42.0-52.0) % MCV 81.5 (80.0-100.0) fL MCH 24.3 L (25.0-34.0) pg MCHC 29.8 L (32.0-36.0) g/dL RDW Std Deviation 59.4 H (36.4-46.3) fL RDW Coeff of Diamond 19.9 H (11.5-14.5) % Plt Count 365 (130-400) K/uL MPV 10.8 (9.4-12.4) fL Immature Gran % (Auto) 0.4 % Neut % (Auto) 76.1 % Lymph % (Auto) 10.1 % [place] % (Auto) 11.9 % Eos % (Auto) 1.3 % Baso % (Auto) 0.2 % Neut # (Auto) 7.26 H (1.40-6.50) K/uL Lymph # (Auto) 0.96 L (1.20-3.40) K/uL [place] # (Auto) 1.14 H (0.11-0.59) K/uL Eos # (Auto) 0.12 (0.00-0.50) K/uL Baso # (Auto) 0.02 (0.00-0.20) K/uL Immature Gran # (Auto) 0.04 (0.01-0.20) K/uL Polychromasia 1+ Hypochromasia Present Target Cells 1+ PT 11.7 (9.0-12.0) Seconds INR 1.1 (0.9-1.1) APTT 32 H (21-31) Seconds PTT Ratio 1.2 VBG pH 7.40 (7.36-7.41) VBG pCO2 52 H (38-50) mmHg VBG pO2 38 mmHg VBG HCO3 32 mmol/L VBG O2 Saturation 64.5 % VBG Base Excess 6.6 mEq/L Sodium 140 (136-145) mmol/L Potassium 3.7 (3.5-5.1) mmol/L Chloride 98 (98-107) mmol/L Carbon Dioxide 33 H (21-32) mmol/L Anion Gap 9 (3-11) BUN 43 H (6-23) mg/dl Creatinine 7.30 H* (0.6-1.4) mg/dl Est Cr Clr Drug Dosing 9.9 ml/min Est GFR ( Amer) 8.0 ml/min Est GFR (Non-Af Amer) 6.9 ml/min BUN/Creatinine Ratio 5.9 L (10-20) Glucose 98 (70-99(Fasting)) mg/dl Calcium 8.8 (8.6-10.3) mg/dl Magnesium 2.0 (1.7-2.4) mg/dl Total Bilirubin 0.6 (0.2-1.0) mg/dl AST 41 H (13-39) U/L ALT 31 (7-52) U/L Alkaline Phosphatase 78 (34-104) U/L Troponin I High Sens 133.5 H* 134.3 H* (0-20) pg/ml B-Natriuretic Peptide > 4700 H (0-100) pg/ml Total Protein 6.2 (6.0-8.3) gm/dl Albumin 3.4 (3.4-5.0) gm/dl Globulin 2.8 (2.5-4.0) gm/dl Albumin/Globulin Ratio 1.2 (0.9-2) Procalcitonin 0.62 H (0-0.5) ng/ml SARS-CoV-2 (PCR) NEGATIVE (Negative) Influenza Type A (PCR) Negative (Neg) Influenza Type B (PCR) Negative (Neg) RSV (RT-PCR) Negative (Neg) Administered Medications Atorvastatin Calcium (Atorvastatin 40 Mg Tab) 40 mg PO HS MYLES Stop: 02/14/24 20:59 Last Admin: 01/15/24 22:28 Dose: 40 mg Documented By: ESG Heparin Sodium (Porcine) (Heparin Sod 5,000 Unit/0.5 Ml Vial) 5,000 units SQ Q12 MYLES Stop: 02/14/24 20:59 Last Admin: 01/15/24 23:07 Dose: 5,000 units Documented By: ESG Hydralazine HCl (Hydralazine Tab 50 Mg Tab) 100 mg PO TID MYLES Stop: 02/14/24 20:59 Last Admin: 01/16/24 00:16 Dose: 100 mg Documented By: ELISHA Losartan Potassium (Losartan Potassium 50 Mg Tab) 50 mg PO AMHS MYLES Stop: 02/14/24 20:59 Last Admin: 01/15/24 23:14 Dose: 50 mg Documented By: ELISHA Metoprolol Succinate (Metoprolol Succ 50mg Ext Rel Tab) 50 mg PO BID MYLES Stop: 02/14/24 20:59 Last Admin: 01/15/24 23:14 Dose: 50 mg Documented By: ELISHA Miscellaneous (Icu Protocol For Hyperglycemia) 1 each N/A ACHS [facility] Stop: 01/17/24 20:59 Last Admin: 01/15/24 20:19 Dose: Not Given Documented By: ELISHA Discontinued Medications Vancomycin HCl 1,500 mg/ (Sodium Chloride) 530 mls @ 200 mls/hr IV NOW ONE Stop: 01/15/24 17:33 Last Infusion: 01/15/24 18:15 Dose: Infused Documented By: Admin: 01/15/24 15:10 Dose: 200 mls/hr Documented By: ARASH Cefepime HCl (Maxipime) 2,000 mg in 20 mls @ 5 mls/min IV NOW STA; Protocol Stop: 01/15/24 14:58 Last Admin: 01/15/24 15:10 Dose: 5 mls/min Documented By: ARASH Cefepime HCl 1,000 mg/ Syringe 10 mls @ 5 mls/min IV ONE ONE; Protocol Stop: 01/15/24 21:01 Last Admin: 01/15/24 22:27 Dose: 5 mls/min Documented By: ELISHA Ioversol (Optiray 320 100ml) 94 ml IV ONCE ONE Stop: 01/15/24 22:52 Last Admin: 01/15/24 22:52 Dose: 94 ml Documented By: ESTELA Imaging Data Radiologist's Impression: Chest X-Ray 01/15/24 13:06 SINGLE VIEW CHEST CLINICAL HISTORY: Dyspnea FINDINGS: An AP upright chest radiograph is compared to study dated 01/04/2024. Correlation is made with chest CT dated 06/12/2023. A right internal jugular central venous catheter is unchanged position. The heart is enlarged noting atherosclerotic calcification of the thoracic aorta. There is pulmonary vascular congestion. Bilateral airspace opacities likely represent pulmonary edema. There are left larger than right pleural effusions with dependent consolidation. No pneumothorax is seen. The skeletal structures are osteopenic. The bony thorax is grossly intact. Degenerative change is noted in the shoulders and spine. IMPRESSION: 1. Cardiomegaly with evidence of congestive failure. 2. Bilateral airspace opacities likely represent pulmonary edema. Correlate clinically. Radiographic follow-up to resolution is recommended. 3. Left larger than right pleural effusions with dependent consolidation. ACT 112: Negative or not required by law. Electronically signed by: Tone Mccain M.D. 01/15/2024 2:29 PM Discharge Plan Visit Data Chief Complaint: Respiratory Problems ED Provider: Jennifer Alva Discharge Problem: Dyspnea, Hypoxia, Weakness, CKD (chronic kidney disease), Pulmonary edema, Pleural effusion Patient Disposition: Admitted As Inpatient Discharge Instructions Interventions: ED Discharge Assessment Last Done: 01/15/24 18:26
--- NOTE | 2024-01-15 14:31 | XRay Report ---
SINGLE VIEW CHEST CLINICAL HISTORY: Dyspnea FINDINGS: An AP upright chest radiograph is compared to study dated 01/04/2024. Correlation is made wi th chest CT dated 06/12/2023. A right internal jugular central venous catheter is unchanged position. The heart is enlarged noting atherosclerotic calcification of the thoracic aorta. There is pulmonary vascular congestion. Bilateral airspace opacities likely represent pulmonary edema. There are left l arger than right pleural effusions with dependent consolidation. No pneumothorax is seen. The skeleta l structures are osteopenic. The bony thorax is grossly intact. Degenerative change is noted in the s houlders and spine. IMPRESSION: 1. Cardiomegaly with evidence of congestive failure. 2. Bilateral airspace opacities likely represent pulmonary edema. Correlate clinically. Radiographic follow-up to resolution is recommended. 3. Left larger than right pleural effusions with dependent consolidation. ACT 112: Negative or not required by law. Electronically signed by: Tone Mccain M.D. 01/15/2024 2:29 PM
[2024-01-15 14:33] LABS: Albumin Globulin Ratio 1.2 (0.9-2); Albumin Level 3.4 gm/dl (3.4-5.0); BUN Creatinine Ratio 5.9 (10-20); Bilirubin,Total 0.6 mg/dl (0.2-1.0); Calcium 8.8 mg/dl (8.6-10.3); Creatinine Clr Calc Pharmacy 9.9 ml/min; Est GFR (Non-African American) 6.9 ml/min; Globulin 2.8 gm/dl (2.5-4.0); Potassium 3.7 mmol/L (3.5-5.1); Total Protein 6.2 gm/dl (6.0-8.3)
[2024-01-15 14:40] LABS: INR 1.1 (0.9-1.1); Partial Thromboplastin Ratio 1.2; Partial Thromboplastin Time 32 Seconds (21-31); Prothrombin Time 11.7 Seconds (9.0-12.0)
[2024-01-15 14:41] LABS: Hematocrit (blood only) 23.8 % (42.0-52.0); Hemoglobin 7.1 g/dl (14.0-18.0); Mean Corpuscular Hemoglobin 24.3 pg (25.0-34.0); Mean Corpuscular Hgb Conc 29.8 g/dL (32.0-36.0); Mean Corpuscular Volume 81.5 fL (80.0-100.0); Mean Platelet Volume 10.8 fL (9.4-12.4); Platelet Count 365 K/uL (130-400); RDW Coefficient of Variation 19.9 % (11.5-14.5); RDW Standard Deviation 59.4 fL (36.4-46.3); Red Blood Count 2.92 M/uL (4.70-6.10)
[2024-01-15 14:42] LABS: Troponin I High Sensitivity 133.5 pg/ml (0-20)
[2024-01-15] MEDS ORDERED: VANCOMYCIN CONSULT ACTIVE PRN (14:55)
[2024-01-15 15:00] LABS: White Blood Count 9.54 K/ul (4.8-10.8)
[2024-01-15 15:01] LABS: Basophils # (auto) 0.02 K/uL (0.00-0.20); Basophils % (auto) 0.2 %; Eosinophils # (auto) 0.12 K/uL (0.00-0.50); Eosinophils % (auto) 1.3 %; Hypochromasia Present; Immature Granulocytes # (auto) 0.04 K/uL (0.01-0.20); Immature Granulocytes % (auto) 0.4 %; Lymphocytes # (auto) 0.96 K/uL (1.20-3.40); Lymphocytes % (auto) 10.1 %; Monocytes # (auto) 1.14 K/uL (0.11-0.59); Monocytes % (auto) 11.9 %; Neutrophils # (auto) 7.26 K/uL (1.40-6.50); Neutrophils % (auto) 76.1 %; Polychromasia 1+; Target Cells 1+
[2024-01-15] MEDS: CEFEPIME 2,000 MG/20 ML VIAL IV STA (15:10)
[2024-01-15] MEDS: VANCOMYCIN HCL 1,500 MG in SODIUM CHLORIDE 0.9% 500 ML IV ONE (15:10)
--- NOTE | 2024-01-15 15:46 | History & Physical Report ---
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 On work-up, pt noted to have fluid overload as he was unable to tolerate HD outpatient today due to worsening hypoxia. Chest x-ray from today and from 01/04/24 were personally reviewed and confirm worsening pulmonary congestion. Spoke with printing plate clerk, Dr. Munson, and patient needs emergent HD today due to worsening clinical status. However, due to clinical condition, HD should be done at bedside as there is potential for deterioration with treatment that would require emergent intervention. Additionally, pt is suspected to have an infection, with concern specifically that loculated pleural effusions are the source. Spoke with pulmonology who recommend transfer to [facility] for thoracic surgery. Transfer process initiated but pt needs emergent HD today Per nephrology, this needs to be done in the unit so the patient is being admitted to ICU for temporizing HD tonight As soon as accepted and bed available, plan is to transfer pt to [facility] for thoracic surgery evaluation Continue empiric broad-spectrum antibiotics as started in the ED - cefepime, vancomycin. Blood cultures pending, daily labs ordered Routine ICU orders placed - spoke with corporate development analyst who will accept the patient while transfer process is completed (2) Acute on chronic combined systolic and diastolic CHF, NYHA class 3: (3) Chronic bilateral pleural effusions: (4) ESRD (end stage renal disease) on dialysis: Plan Pt seen and evaluated with collaborating physician, Dr. Sahu. Plan of care discussed and as outlined above. 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 Pt was most recently admitted to this facility 12/03-12/08/23 with multifactorial acute on chronic respiratory failure including recurrent pleural effusions and parainfluenza infection with concern for superimposed bacterial infection. He was also noted to have acute on chronic HFrEF, with volume management by HD. He has had multiple thoracentesis procedure with most recent US guided left thoracentesis on 01/04/24 - 200 cc removed, pt tolerated well. Effusion noted to be loculated on that report. Pt reports he developed a dry cough about a week ago. Over the last few days, cough has become productive of white to costa sputum. Over the last two days, he reports starting to feel "sick," specifically noting increased dyspnea with exertion. He did not check his temperature at home but notes temp at HD today was 99.2F. He is on a M/W/F schedule for HD and denies missing any treatments. When he arrived for HD today, his pulseox was noted to be 77% on his baseline 1.5L. O2 increased to 5L with improvement of pulseox to the low to mid 90s. However, when HD treatment started, sats again dropped to the 80s even with the increased O2 so HD was stopped and patient was referred to the ED. Pt was also noted to have shaking chills at dialysis, which is unsual for him. He denies N/V/D. He does not make urine. Translation service used - #[id number] Allergies Allergy/AdvReac Type Severity Reaction Status Date / Time No Known Allergies Allergy Verified 01/11/24 11:51 Home Medications Medication Instructions Recorded Confirmed Type atorvastatin 40 mg tablet 40 mg PO HS #30 tabs 03/28/23 01/15/24 Rx allopurinol 100 mg tablet 100 mg PO QAM 08/28/23 01/15/24 History ondansetron HCl 4 mg tablet 4 mg PO Q8H PRN NAUSEA/VOMITING 08/28/23 01/15/24 History patiromer calcium sorbitex 8.4 8.4 g PO Q OTHER DAY 08/28/23 01/15/24 History gram oral powder packet (Veltassa) amino acid-protein hyd 16 gram-100 30 ml PO AMHS 10/05/23 01/15/24 History kcal/30 mL oral liq meter-dose pump (Liquacel) hydralazine 100 mg tablet 100 mg PO TID 01/11/24 01/15/24 History isosorbide dinitrate 20 mg tablet 20 mg PO TID 01/11/24 01/15/24 History losartan 50 mg tablet 50 mg PO AMHS 01/11/24 01/15/24 History sevelamer carbonate 800 mg tablet 800 mg PO TIDM 01/11/24 01/15/24 History (Renvela) L.acidop,casei,lactis,rham-B.lact,isabel 1 cap PO DAILY 01/15/24 01/15/24 History 625 mg (10 billion cell) capsule (Advanced Probiotic) acetaminophen 325 mg tablet 650 mg PO Q4 PRN Pain 01/15/24 01/15/24 History ferric citrate 210 mg iron tablet 1 - 2 tab PO UD 01/15/24 01/15/24 History (Auryxia) fluticasone propionate 50 2 spray intranasal QAM 01/15/24 01/15/24 History mcg/actuation nasal spray,suspension gabapentin 100 mg capsule 100 mg PO UD 01/15/24 01/15/24 History metoprolol succinate 50 mg 50 mg PO BID 01/15/24 01/15/24 History tablet,extended release 24 hr vitamin B complex with vit C-folic 1 tab PO DAILY 01/15/24 01/15/24 History acid 800 mcg-zinc 12.5 mg tablet (RenaPlex) Past Med/Surg History Problem List (Updated 01/15/24 @ 14:31 by Jennifer Alva DO) Weakness (Acute) Hypoxia (Acute) Dyspnea (Acute) Chronic bilateral pleural effusions Acute on chronic combined systolic and diastolic CHF, NYHA class 3 entered into EMR 12/05/23 Parainfluenza infection (Acute) entered into EMR 12/04/23 and last edited 12/05/23 Acute on chronic hypoxic respiratory failure (Acute) entered into EMR 12/04/23 HLD (hyperlipidemia) Chronic CHF Chronic hypoxic respiratory failure Hemodialysis AV fistula thrombosis Shortness of breath (Acute) entered into EMR 10/05/23 CHF (congestive heart failure) (Acute) EF 45-50% on 08/2023 echo Hypertensive heart disease Medically noncompliant Chest pain (Acute) entered into EMR 06/12/23 Acute hyperkalemia (Acute) entered into EMR 06/12/23 Renal failure (ARF), acute on chronic (Acute) entered into EMR 05/17/23 Pneumonia (Acute) entered into chart 04/15/23 Hypertensive urgency (Acute) entered into EMR 03/26/23 Dialysis patient (Acute) Acute heart failure with reduced ejection fraction and diastolic dysfunction entered into EMR 12/06/22 Acute hypoxemic respiratory failure entered into EMR 12/05/22 and last edited 11/07/23 Hypoxia (Acute) entered into EMR 12/05/22 PD catheter dysfunction Peritonitis associated with peritoneal dialysis entered into EMR 11/10/22 Anemia of chronic disease Dyspnea (Acute) entered into EMR 11/10/22 Abdominal pain (Acute) entered into EMR 11/10/22 Peritoneal dialysis catheter in situ Fluid overload (Acute) entered into EMR 09/11/22 and last edited 11/07/23 Hyperkalemia entered into EMR 08/20/22 and last activated 11/08/23 ESRD (end stage renal disease) on dialysis (Acute) HD patient follows w/ Dr Munson [facility]: M, W and F per [facility] RN notation. 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 Elevated troponin (Acute) 12/04/23 Body aches (Acute) entered into EMR 06/12/22 Cough (Acute) entered into EMR 06/12/22 Precordial chest pain (Acute) entered into EMR 06/12/22 Encounter for pre-operative examination Kidney transplant candidate Hypertension Right groin pain entered into EMR 07/22/19 Nephrolithiasis (Acute) Hematuria, microscopic (Acute) Benign prostatic hyperplasia with urinary obstruction (Acute) Medical History (Updated 01/15/24 @ 14:31 by Jennifer Alva DO) History of pneumonia History of peritonitis d/t peritoneal dialysis catheter History of nephrolithiasis Hypertensive heart disease Hyperlipidemia Hypertension History of hematuria ESRD (end stage renal disease) on dialysis HD patient follows trav/ Dr Munson [facility]: M, W and F Chronic bilateral pleural effusions multiple thoracentesis--last 01/04/24 BPH (benign prostatic hyperplasia) Chronic anemia Chronic combined systolic and diastolic CHF, NYHA class 3 EF 45-50% on 08/2023 echo History of hyperkalemia On home oxygen therapy 1.5L Mild aortic stenosis Pulmonary hypertension PASP 45 mmHg on 08/2023 echo Aortic ectasia Secondary hyperparathyroidism History of NC (myocardial infarction) follows with [facility] Paroxysmal atrial flutter Chronic respiratory failure wears oxygen 1.5L Chest pain hx 2022--not current issue SOB (shortness of breath) entered into EMR 01/01/23 AV fistula left arm Restless leg syndrome Surgical History S/P hemodialysis catheter insertion 11/08/23 Perm cath placed into Right IJ @ [facility] Dr. Viera History of colonoscopy H/O inguinal hernia repair History of cystoscopy Status post creation of arteriovenous fistula left arm History of tooth extraction History of thoracentesis multiple, most recent 01-04-24 @ [facility] Family History Other No family history of adverse response to anesthesia No significant family history Social History Smoking Status: Unknown if ever smoked Tobacco Type: Cigarettes Second Hand Exposure: No; Do You Dip or Chew Tobacco: No; Hx Alcohol Use: No Hx Substance Use: No Preferred Language: Vincentian Communication Ability: Effective Communication Ability Comment: daughters speaks syrian well, pt will need battery tester field device Communication Tools: IPad Ring Barker Operator Required: Yes Beliefs That Will Affect Care: None marital status: Current Living Situation: Family current occupational status: employed Feels Safe at Home: Yes Assistive Devices: Oxygen - Continuous Review of Systems Review of Systems: All systems reviewed & are unremarkable except as noted in Subjective Physical Exam Physical Exam: Please see the physician note for details of the physical exam. Results & Data Results & Data Vital Signs (Past 12 Hours) Vital Signs Temp Pulse Pulse Resp BP BP Pulse Ox 01/15/24 15:35 75 34 H 165/91 H 92 01/15/24 14:15 74 18 91 01/15/24 13:56 68 01/15/24 13:39 70 18 94 01/15/24 12:13 70 18 94 01/15/24 12:13 94 01/15/24 12:13 36.8 C 75 20 155/101 H 94 O2 Del Method O2 Flow Rate 01/15/24 15:35 Oxymask 15 01/15/24 14:15 Room Air 01/15/24 13:56 01/15/24 13:39 Nasal Cannula 5 01/15/24 12:13 Nasal Cannula 5 01/15/24 12:13 Nasal Cannula 5 01/15/24 12:13 Nasal Cannula 5 Laboratory Results Lab Results 01/15/24 01/15/24 Range/Units 13:13 13:15 WBC 9.54 (4.8-10.8) K/ul RBC 2.92 L (4.70-6.10) M/uL Hgb 7.1 L (14.0-18.0) g/dl Hct 23.8 L (42.0-52.0) % MCV 81.5 (80.0-100.0) fL MCH 24.3 L (25.0-34.0) pg MCHC 29.8 L (32.0-36.0) g/dL RDW Std Deviation 59.4 H (36.4-46.3) fL RDW Coeff of Diamond 19.9 H (11.5-14.5) % Plt Count 365 (130-400) K/uL MPV 10.8 (9.4-12.4) fL Immature Gran % (Auto) 0.4 % Neut % (Auto) 76.1 % Lymph % (Auto) 10.1 % [place] % (Auto) 11.9 % Eos % (Auto) 1.3 % Baso % (Auto) 0.2 % Neut # (Auto) 7.26 H (1.40-6.50) K/uL Lymph # (Auto) 0.96 L (1.20-3.40) K/uL [place] # (Auto) 1.14 H (0.11-0.59) K/uL Eos # (Auto) 0.12 (0.00-0.50) K/uL Baso # (Auto) 0.02 (0.00-0.20) K/uL Immature Gran # (Auto) 0.04 (0.01-0.20) K/uL Polychromasia 1+ Hypochromasia Present Target Cells 1+ PT 11.7 (9.0-12.0) Seconds INR 1.1 (0.9-1.1) APTT 32 H (21-31) Seconds PTT Ratio 1.2 VBG pH 7.40 (7.36-7.41) VBG pCO2 52 H (38-50) mmHg VBG pO2 38 mmHg VBG HCO3 32 mmol/L VBG O2 Saturation 64.5 % VBG Base Excess 6.6 mEq/L Sodium 140 (136-145) mmol/L Potassium 3.7 (3.5-5.1) mmol/L Chloride 98 (98-107) mmol/L Carbon Dioxide 33 H (21-32) mmol/L Anion Gap 9 (3-11) BUN 43 H (6-23) mg/dl Creatinine 7.30 H* (0.6-1.4) mg/dl Est Cr Clr Drug Dosing 9.9 ml/min Est GFR ( Amer) 8.0 ml/min Est GFR (Non-Af Amer) 6.9 ml/min BUN/Creatinine Ratio 5.9 L (10-20) Glucose 98 (70-99(Fasting)) mg/dl Calcium 8.8 (8.6-10.3) mg/dl Magnesium 2.0 (1.7-2.4) mg/dl Total Bilirubin 0.6 (0.2-1.0) mg/dl AST 41 H (13-39) U/L ALT 31 (7-52) U/L Alkaline Phosphatase 78 (34-104) U/L Troponin I High Sens 133.5 H* (0-20) pg/ml B-Natriuretic Peptide > 4700 H (0-100) pg/ml Total Protein 6.2 (6.0-8.3) gm/dl Albumin 3.4 (3.4-5.0) gm/dl Globulin 2.8 (2.5-4.0) gm/dl Albumin/Globulin Ratio 1.2 (0.9-2) SARS-CoV-2 (PCR) NEGATIVE (Negative) Influenza Type A (PCR) Negative (Neg) Influenza Type B (PCR) Negative (Neg) RSV (RT-PCR) Negative (Neg) Diagnostic Findings Chest X-Ray 01/15/24 13:06 SINGLE VIEW CHEST CLINICAL HISTORY: Dyspnea FINDINGS: An AP upright chest radiograph is compared to study dated 01/04/2024. Correlation is made with chest CT dated 06/12/2023. A right internal jugular central venous catheter is unchanged position. The heart is enlarged noting atherosclerotic calcification of the thoracic aorta. There is pulmonary vascular congestion. Bilateral airspace opacities likely represent pulmonary edema. There are left larger than right pleural effusions with dependent consolidation. No pneumothorax is seen. The skeletal structures are osteopenic. The bony thorax is grossly intact. Degenerative change is noted in the shoulders and spine. IMPRESSION: 1. Cardiomegaly with evidence of congestive failure. 2. Bilateral airspace opacities likely represent pulmonary edema. Correlate clinically. Radiographic follow-up to resolution is recommended. 3. Left larger than right pleural effusions with dependent consolidation. ACT 112: Negative or not required by law. Electronically signed by: Tone Mccain M.D. 01/15/2024 2:29 PM Medications Administered Vancomycin HCl 1,500 mg/ (Sodium Chloride) 530 mls @ 200 mls/hr IV NOW ONE Stop: 01/15/24 17:33 Last Admin: 01/15/24 15:10 Dose: 200 mls/hr Documented By: ARASH Discontinued Medications Cefepime HCl (Maxipime) 2,000 mg in 20 mls @ 5 mls/min IV NOW STA; Protocol Stop: 01/15/24 14:58 Last Admin: 01/15/24 15:10 Dose: 5 mls/min Documented By: ARASH Supervising Physician Co-Signing Physician Notes Patient was seen and examined with Mei GUERRERO at bedside with help of Vincentian battery tester field over ipad. Chart reviewed. Case discussed with Mei and agree with the documentation above. In summary, this is a68 year old male who was sent to the ED from HD for SOB, hypoxia and unable to complete HD. ED bar saenz spoke to nephrology who recommended close observation in ICU overnight with HD and empiric antibiotics given rigors/low grade fever. Currently on 15 L oxygen via oxymask, hemodynamically stable, AAO, conversing well. States has cough with phlegm for a week and chills for 2 days. Does not make any urine. VS, labs, imaging reviewed. CXR showed CHF with bilateral opacities s/o pulm edema and L>R pleural effusion with dependent consolidation. Started on empiric ABx in ED which will be continued pending blood clx results and CT chest. Admit to ICU as recommended by nephrology for HD and closer monitoring. Spoke with corporate development analyst who recommended transfer to [facility] for thoracic surgery evaluation. Spoke with thoracic surgeon at [facility] who recommended CT Chest and will decide whether he is appropriate for transfer based on the CT chest findings. CT ordered by corporate development analyst. In the meantime, he will be in ICU and will get HD and empiric antibiotics. Continue supplemental oxygen. He opts to be full code. Rest as per the note above. On exam- General: Sitting comfortably in bed, not in acute distress, on oxymask HEENT: EOMI, ADRIAN, MMM Chest: Rt permacath site looks clean. Fair breath sounds bilaterally with basilar crackles CVS: Regular rate and rhythm, normal heart sounds, no murmur Abdomen: Soft, non tender, not distended, normal bowel sounds Neuro: Awake, alert, oriented, conversing well, non focal Extremities: No edema
--- NOTE | 2024-01-15 18:42 | Electrocardiogram Report ---
Test Reason : Blood Pressure : / mmHG Vent. Rate : 071 BPM Atrial Rate : 071 BPM P-R Int : 204 ms QRS Dur : 104 ms QT Int : 412 ms P-R-T Axes : 055 -01 150 degrees QTc Int : 447 ms Sinus rhythm with occasional Premature ventricular complexes and Premature atrial complexes Old Anterolateral infarct (cited on or before 04-DEC-2023) Possible Old Inferior infarct Abnormal ECG When compared with ECG of 04-DEC-2023 12:27, Premature ventricular complexes are now Present QRS axis Shifted right Confirmed by Alexis Lafleur ([id number]) on 01/15/2024 6:41:47 PM Referred By: REFERRED SELF Confirmed By:Alexis Lafleur
--- NOTE | 2024-01-15 19:15 | Critical Care Consultation ---
Date of Consultation January 15, 2024 Assessment & Plan (1) Chronic hypoxic respiratory failure: (2) Acute on chronic hypoxic respiratory failure: (3) Chronic bilateral pleural effusions: (4) Renal failure (ARF), acute on chronic: (5) Hypertension: Plan Reason Critically Ill: 68 YOM with chronic respiratory failure now with bilateral pulmonary opacities, increase in bilateral pleural effusions, requiring emergent/urgent dialysis. Neuro - No acute needs CAM ICU: NEGATIVE Cardiac - Hx HTN, HFpEF, elevated HsCTNI - Acute on chronic heart failure with evidence of increase in pulmonary edema and pleural effusions- likely exacerbation on top of possible infection and ESRD - Dialyze now- - Continue hemodynamic monitoring- continue BB, Continue Veltassa, Continue ARB, Continue Hydralazine, - Elevated HsCTNI- troponin likely secondary to volume overload and underlying heart function- demand Respiratory - Acute on chronic hypoxic respiratory failure, acute on chronic bilateral pleural effusions Acute on chronic respiratory failure likely secondary to volume status, however can't exclude infective process at this time - continue broad spectrum abx - update contrasted CT scan - patient likely needs evaluation for VATS - discussion started with [facility] surgery- update in morning with updated imaging and clinical course - Continue VASYL GI -No acute needs - renal heart healthy diet following dialysis and CT scan if respiratory status improves RENAL/LYTES - ESRD - Dialysis secondary to volume status- electrolytes and metabolic parameters tolerable - No acute needs ENDO - NO acute needs - ICU hyper/hypoglycemic protocol HEME - Anemia Chronic - no acute needs at this time ID - Can't exclude pulmonary source of infection at this time - with fevers, opacities, increase cough and sputum- normal WBC and PCT of 0.62 in ESRD dialysis patient is borderline - Continue with broad spectrum abx- await culture data LINES/IV ACCESS - PIV, Dialysis line Continue use of these lines DVT PROPHYLAXIS - Heparin 5000 units sub q q12 DISPO: ICU until respiratory status improves I have personally spent 45 minutes of critical care time in the direct management of this patient. This is a life/limb threatening event. This includes time spent evaluating patient, direct bedside care, chart review, placing orders, interpretation of diagnostic studies, discussion with consultants, patient, and family members, as well as other required patient management activities. This time is exclusive of all separately billable procedures, and teaching time and separate from and in addition to any other critical care service time. Thank you for allowing us to participate in the care of this patient. Please refer to my attending physician's documentation for any further recommendations. History of Present Illness Reason for Consultation: Hypoxic respiratory failure Requesting Physician: Racheal Sahu Attending Physician: Robinson Sahu MD History of Present Illness 68 YOM with medical history of: ESRD on HD, chronic hypoxia (on 1.5-2L NC at home), HFpEF, Chronic recurring bilateral pleural effusions. Patient came to the EMD today for increase in dyspnea and hypoxia, reportedly was also associated with fevers and chills. CXR with worsening bilateral opacities, consistent with volume overload requiring urgent dialysis and also concern for infection of plueral fluid. He will be placed in the ICU for completion of dialysis for concern of impending respiratory failure requiring intervention. In regards to his pleural effusions pulmonary has been consulted as well- discussion initiated with [facility] surgery for evaluation regarding his pleural effusions. Continue abx therapy, following dialysis and ability to lay flat will obtain updated CT scan to evaluate lung valle and effusions. CODE: FULL Allergies Allergy/AdvReac Type Severity Reaction Status Date / Time No Known Allergies Allergy Verified 01/11/24 11:51 Home Medications Medication Instructions Recorded Confirmed Type atorvastatin 40 mg tablet 40 mg PO HS #30 tabs 03/28/23 01/15/24 Rx allopurinol 100 mg tablet 100 mg PO QAM 08/28/23 01/15/24 History ondansetron HCl 4 mg tablet 4 mg PO Q8H PRN NAUSEA/VOMITING 08/28/23 01/15/24 History patiromer calcium sorbitex 8.4 8.4 g PO Q OTHER DAY 08/28/23 01/15/24 History gram oral powder packet (Veltassa) amino acid-protein hyd 16 gram-100 30 ml PO AMHS 10/05/23 01/15/24 History kcal/30 mL oral liq meter-dose pump (Liquacel) hydralazine 100 mg tablet 100 mg PO TID 01/11/24 01/15/24 History isosorbide dinitrate 20 mg tablet 20 mg PO TID 01/11/24 01/15/24 History losartan 50 mg tablet 50 mg PO AMHS 01/11/24 01/15/24 History sevelamer carbonate 800 mg tablet 800 mg PO TIDM 01/11/24 01/15/24 History (Renvela) L.acidop,casei,lactis,rham-B.lact,isabel 1 cap PO DAILY 01/15/24 01/15/24 History 625 mg (10 billion cell) capsule (Advanced Probiotic) acetaminophen 325 mg tablet 650 mg PO Q4 PRN Pain 01/15/24 01/15/24 History ferric citrate 210 mg iron tablet 1 - 2 tab PO UD 01/15/24 01/15/24 History (Auryxia) fluticasone propionate 50 2 spray intranasal QAM 01/15/24 01/15/24 History mcg/actuation nasal spray,suspension gabapentin 100 mg capsule 100 mg PO UD 01/15/24 01/15/24 History metoprolol succinate 50 mg 50 mg PO BID 01/15/24 01/15/24 History tablet,extended release 24 hr vitamin B complex with vit C-folic 1 tab PO DAILY 01/15/24 01/15/24 History acid 800 mcg-zinc 12.5 mg tablet (RenaPlex) Patient History Medical History History of pneumonia History of peritonitis d/t peritoneal dialysis catheter History of nephrolithiasis Hypertensive heart disease Hyperlipidemia Hypertension History of hematuria ESRD (end stage renal disease) on dialysis HD patient follows w/ Dr Munson [facility]: M, W and F Chronic bilateral pleural effusions multiple thoracentesis--last 01/04/24 BPH (benign prostatic hyperplasia) Chronic anemia Chronic combined systolic and diastolic CHF, NYHA class 3 EF 45-50% on 08/2023 echo History of hyperkalemia On home oxygen therapy 1.5L Mild aortic stenosis Pulmonary hypertension PASP 45 mmHg on 08/2023 echo Aortic ectasia Secondary hyperparathyroidism History of [place] (myocardial infarction) follows with [facility] Paroxysmal atrial flutter Chronic respiratory failure wears oxygen 1.5L Chest pain hx 2022--not current issue SOB (shortness of breath) entered into EMR 01/01/23 AV fistula left arm Restless leg syndrome Surgical History S/P hemodialysis catheter insertion 11/08/23 Perm cath placed into Right IJ @ [facility] Dr. Viera History of colonoscopy H/O inguinal hernia repair History of cystoscopy Status post creation of arteriovenous fistula left arm History of tooth extraction History of thoracentesis multiple, most recent 01-04-24 @ [facility] Family History Other No family history of adverse response to anesthesia No significant family history Social History Smoking Status: Unknown if ever smoked Tobacco Type: Cigarettes Second Hand Exposure: No; Do You Dip or Chew Tobacco: No; Hx Alcohol Use: No Hx Substance Use: No Preferred Language: Panamanian Communication Ability: Effective Communication Ability Comment: daughters speaks mauritian well, pt will need architecture department chair device Communication Tools: IPad Edger Hand Required: Yes Beliefs That Will Affect Care: None marital status: Current Living Situation: Family current occupational status: employed Feels Safe at Home: Yes Assistive Devices: Oxygen - Continuous Review of Systems Review of Systems: REVIEW OF SYSTEMS: Constitutional: (+) fever, sweats or chills Eyes: No diplopia, no worsening or blurred vision ENT: normal hearing, no trouble swallowing Respiratory: (+) cough, sputum, dyspnea at rest or on exertion Cardiovascular: No chest pain, tightness or palpitations Abdomen: No pain, nausea, vomiting, diarrhea or constipation Musculoskeletal: No joint pain, calf pain, swelling Neurologic: No weakness, numbness/tingling, or balance problems Physical Exam Physical Exam: PHYSICAL EXAM: General: awake, alert, no apparent distress Head: Normocephalic, atraumatic ENT: PERRLA, EOMI, no pharyngeal exudate, mucous membranes moist Neuro: AAO x 3, speech clear and appropriate, strength intact bilaterally 5/5, sensation intact and equal all extremities and dermatomes, no pronator drift Chest: equal rise and fall of the chest, no accessory muscle use, scattered rhonchi throughout diminished bilaterally in the bases Cardiac: Regular rate and rhythm, telemetry reviewed, skin warm dry, cap refill <3 seconds, peripheral pulses +2 no JVD, no murmur, trace lower extremity edema GI: NABS x 4 quadrants, soft, nontender to palpation, no rebound, guarding or tenderness : Spontaneously voiding, no pain, no CVA tenderness, Extremities: Normal inspection, no peripheral edema or erythema, calfs nont clement to palpation Psych: Normal mood and affect Skin: no rash or erythema Results & Data Results & Data Vital Signs (Past 12 Hours) Vital Signs Temp Pulse Pulse Resp BP BP Pulse Ox 01/15/24 18:28 73 01/15/24 18:26 01/15/24 18:00 73 16 165/104 H 93 01/15/24 17:30 73 01/15/24 15:35 75 34 H 165/91 H 92 01/15/24 14:15 74 18 91 01/15/24 13:56 68 01/15/24 13:39 70 18 94 01/15/24 12:13 70 18 94 01/15/24 12:13 94 01/15/24 12:13 36.8 C 75 20 155/101 H 94 O2 Del Method O2 Flow Rate 01/15/24 18:28 01/15/24 18:26 Oxymask 15 01/15/24 18:00 Oxymask 01/15/24 17:30 01/15/24 15:35 Oxymask 15 01/15/24 14:15 Room Air 01/15/24 13:56 01/15/24 13:39 Nasal Cannula 5 01/15/24 12:13 Nasal Cannula 5 01/15/24 12:13 Nasal Cannula 5 01/15/24 12:13 Nasal Cannula 5 Laboratory Results Abnormal lab results 01/15/24 01/15/24 Range/Units 13:13 16:02 RBC 2.92 L (4.70-6.10) M/uL Hgb 7.1 L (14.0-18.0) g/dl Hct 23.8 L (42.0-52.0) % MCH 24.3 L (25.0-34.0) pg MCHC 29.8 L (32.0-36.0) g/dL RDW Std Deviation 59.4 H (36.4-46.3) fL RDW Coeff of Diamond 19.9 H (11.5-14.5) % Neut # (Auto) 7.26 H (1.40-6.50) K/uL Lymph # (Auto) 0.96 L (1.20-3.40) K/uL Crisp # (Auto) 1.14 H (0.11-0.59) K/uL APTT 32 H (21-31) Seconds VBG pCO2 52 H (38-50) mmHg Carbon Dioxide 33 H (21-32) mmol/L BUN 43 H (6-23) mg/dl Creatinine 7.30 H* (0.6-1.4) mg/dl BUN/Creatinine Ratio 5.9 L (10-20) AST 41 H (13-39) U/L Troponin I High Sens 133.5 H* 134.3 H* (0-20) pg/ml B-Natriuretic Peptide > 4700 H (0-100) pg/ml Procalcitonin 0.62 H (0-0.5) ng/ml Diagnostic Findings Chest X-Ray 01/15/24 13:06 SINGLE VIEW CHEST CLINICAL HISTORY: Dyspnea FINDINGS: An AP upright chest radiograph is compared to study dated 01/04/2024. Correlation is made with chest CT dated 06/12/2023. A right internal jugular central venous catheter is unchanged position. The heart is enlarged noting atherosclerotic calcification of the thoracic aorta. There is pulmonary vascular congestion. Bilateral airspace opacities likely represent pulmonary edema. There are left larger than right pleural effusions with dependent consolidation. No pneumothorax is seen. The skeletal structures are osteopenic. The bony thorax is grossly intact. Degenerative change is noted in the shoulders and spine. IMPRESSION: 1. Cardiomegaly with evidence of congestive failure. 2. Bilateral airspace opacities likely represent pulmonary edema. Correlate clinically. Radiographic follow-up to resolution is recommended. 3. Left larger than right pleural effusions with dependent consolidation. ACT 112: Negative or not required by law. Electronically signed by: Tone Mccain M.D. 01/15/2024 2:29 PM Medications Administered Home Medications atorvastatin 40 mg tablet 40 mg PO HS #30 tabs 03/28/23 [Rx Confirmed 01/15/24] allopurinol 100 mg tablet 100 mg PO QAM 08/28/23 [History Confirmed 01/15/24] ondansetron HCl 4 mg tablet 4 mg PO Q8H PRN NAUSEA/VOMITING 08/28/23 [History Confirmed 01/15/24] patiromer calcium sorbitex 8.4 gram oral powder packet (Veltassa) 8.4 g PO Q OTHER DAY 08/28/23 [History Confirmed 01/15/24] amino acid-protein hyd 16 gram-100 kcal/30 mL oral liq meter-dose pump (Liquacel) 30 ml PO AMHS 10/05/23 [History Confirmed 01/15/24] hydralazine 100 mg tablet 100 mg PO TID 01/11/24 [History Confirmed 01/15/24] isosorbide dinitrate 20 mg tablet 20 mg PO TID 01/11/24 [History Confirmed 01/15/24] losartan 50 mg tablet 50 mg PO AMHS 01/11/24 [History Confirmed 01/15/24] sevelamer carbonate 800 mg tablet (Renvela) 800 mg PO TIDM 01/11/24 [History Confirmed 01/15/24] L.acidop,casei,lactis,rham-B.lact,isabel 625 mg (10 billion cell) capsule (Advanced Probiotic) 1 cap PO DAILY 01/15/24 [History Confirmed 01/15/24] acetaminophen 325 mg tablet 650 mg PO Q4 PRN Pain 01/15/24 [History Confirmed 01/15/24] ferric citrate 210 mg iron tablet (Auryxia) 1 - 2 tab PO UD 01/15/24 [History Confirmed 01/15/24] fluticasone propionate 50 mcg/actuation nasal spray,suspension 2 spray intranasal QAM 01/15/24 [History Confirmed 01/15/24] gabapentin 100 mg capsule 100 mg PO UD 01/15/24 [History Confirmed 01/15/24] metoprolol succinate 50 mg tablet,extended release 24 hr 50 mg PO BID 01/15/24 [History Confirmed 01/15/24] vitamin B complex with vit C-folic acid 800 mcg-zinc 12.5 mg tablet (RenaPlex) 1 tab PO DAILY 01/15/24 [History Confirmed 01/15/24] Active Medications Cefepime HCl 2,000 mg/ Syringe 20 mls @ 5 mls/min IV ONE ONE; Protocol Stop: 01/15/24 17:28 Miscellaneous (Icu Protocol For Hyperglycemia) 1 each N/A ACHS MYLES Stop: 01/17/24 20:59 Miscellaneous Information (Vancomycin Consult Active) 1 each N/A UD PRN PRN Reason: Consult Stop: 02/14/24 14:54 Coding Level of Care Code 69661 CRITICAL CARE 1ST 30-74M Diagnoses Chronic hypoxic respiratory failure J96.11 Acute on chronic hypoxic respiratory failure J96.21 Chronic bilateral pleural effusions J90 Renal failure (ARF), acute on chronic N17.9; N18.9 Hypertension I10
[2024-01-15] MEDS ORDERED: ACETAMINOPHEN 325 MG TAB PO PRN (19:17)
[2024-01-15] MEDS ORDERED: GABAPENTIN 100 MG CAP PO PRN (19:30)
--- NOTE | 2024-01-15 20:12 | Nephrology Consultation ---
Date of Consultation January 15, 2024 Assessment & Plan (1) ESRD (end stage renal disease) on dialysis: urgent dialysis today for volume control in this anuric patient; using TDC for access currently d/t thrombosed AVF -likely to need daily dialysis for some time -ensure 4 blood cx bottles given TDC use -for 3.5 hr tx this evening w/ goal 4L UF as toelrated (2) Acute on chronic hypoxic respiratory failure: optimize volume status continue ICU monitoring > at risk for abrupt decompensation >f/u pulmonary recs and CT surgery -recommended cefepime vanco to ER but defer to critical care >> abtx on hold for now (3) Chronic bilateral pleural effusions: loculated; clinically challenging and risk for recurrent / challenging to treat infections -per pulm/ CT surgery History of Present Illness Reason for Consultation: ESRD needs dialysis Requesting Physician: Dr Canales Attending Physician: Robinson Sahu MD History of Present Illness 68 y/o M whom I'm asked to see for dialysis needs was admitted to ICU this evening after being sent from OP dialysis by ambulance for refractory/worsening hypoxia. PMH includes ESRD on HD currently via TDC, chronic hypoxia (on 1.5-2L NC at home), recurrent bilateral and loculated pleural effusions, aortic stenosis, HFpEF. in the past pleural effusions were managed w/ serial thoracenteses; however they quickly became loculated. he reportecly had a thoracentesis on 01/03 w/ approx at most 300 mL fluid removal. He is awaiting new AVF creation and is TDC dependent until then. He reported worsening cough, weakness at dialysis 01/11 and was advised to d/w PCP and/or pulmonary. He came to dialysis today with 02 sats 77% on 1.5L 02NC and ongoing c/o generalized weakness, dizziness, sob. His sats came up to 92% on 5L 02NC; the hope was that dialysis would lower his oxygen requirements. However even on 5L at dialysis his sats dropped to mid 80s consistently. There was concern for rigors as well at end of tx observed by raise driller; post tx temp 99.2. he has been afebrile since presentation to ER. in ER he was satting in low 90s on 15 L oxymask. CXR w/ increasing BL opacities. Plan is to have him in ICU ON while we do emergent dialysis in case of need for intubation. he was started on abtx after obtaining blood cultures. ICU in discussion w/ [facility] CT surgery re possible transfer for surgical mgt of pleural effusions w/ concern that these may now be infected (did have eval for this as OP past 6 mos but declined at that time as surg candidate). pt tells me he feels cold that over weekend alternated warm/hot but no fever, no rigors. worsening sob, dizziness, fatigue as above adn cough. he is anuric. no chest pain/pressure. no n/v/d/c/ abd pain. no bleeding. Allergies Allergy/AdvReac Type Severity Reaction Status Date / Time No Known Allergies Allergy Verified 01/11/24 11:51 Home Medications Medication Instructions Recorded Confirmed Type atorvastatin 40 mg tablet 40 mg PO HS #30 tabs 03/28/23 01/15/24 Rx allopurinol 100 mg tablet 100 mg PO QAM 08/28/23 01/15/24 History ondansetron HCl 4 mg tablet 4 mg PO Q8H PRN NAUSEA/VOMITING 08/28/23 01/15/24 History patiromer calcium sorbitex 8.4 8.4 g PO Q OTHER DAY 08/28/23 01/15/24 History gram oral powder packet (Veltassa) amino acid-protein hyd 16 gram-100 30 ml PO AMHS 10/05/23 01/15/24 History kcal/30 mL oral liq meter-dose pump (Liquacel) hydralazine 100 mg tablet 100 mg PO TID 01/11/24 01/15/24 History isosorbide dinitrate 20 mg tablet 20 mg PO TID 01/11/24 01/15/24 History losartan 50 mg tablet 50 mg PO AMHS 01/11/24 01/15/24 History sevelamer carbonate 800 mg tablet 800 mg PO TIDM 01/11/24 01/15/24 History (Renvela) L.acidop,casei,lactis,rham-B.lact,isabel 1 cap PO DAILY 01/15/24 01/15/24 History 625 mg (10 billion cell) capsule (Advanced Probiotic) acetaminophen 325 mg tablet 650 mg PO Q4 PRN Pain 01/15/24 01/15/24 History ferric citrate 210 mg iron tablet 1 - 2 tab PO UD 01/15/24 01/15/24 History (Auryxia) fluticasone propionate 50 2 spray intranasal QAM 01/15/24 01/15/24 History mcg/actuation nasal spray,suspension gabapentin 100 mg capsule 100 mg PO UD 01/15/24 01/15/24 History metoprolol succinate 50 mg 50 mg PO BID 01/15/24 01/15/24 History tablet,extended release 24 hr vitamin B complex with vit C-folic 1 tab PO DAILY 01/15/24 01/15/24 History acid 800 mcg-zinc 12.5 mg tablet (RenaPlex) Patient History Medical History History of pneumonia History of peritonitis d/t peritoneal dialysis catheter History of nephrolithiasis Hypertensive heart disease Hyperlipidemia Hypertension History of hematuria ESRD (end stage renal disease) on dialysis HD patient follows w/ Dr Munson [facility]: M, W and F Chronic bilateral pleural effusions multiple thoracentesis--last 01/04/24 BPH (benign prostatic hyperplasia) Chronic anemia Chronic combined systolic and diastolic CHF, NYHA class 3 EF 45-50% on 08/2023 echo History of hyperkalemia On home oxygen therapy 1.5L Mild aortic stenosis Pulmonary hypertension PASP 45 mmHg on 08/2023 echo Aortic ectasia Secondary hyperparathyroidism History of [place] (myocardial infarction) follows with [facility] Paroxysmal atrial flutter Chronic respiratory failure wears oxygen 1.5L Chest pain hx 2022--not current issue SOB (shortness of breath) entered into EMR 01/01/23 AV fistula left arm Restless leg syndrome Surgical History S/P hemodialysis catheter insertion 11/08/23 Perm cath placed into Right IJ @ [facility] Dr. Viera History of colonoscopy H/O inguinal hernia repair History of cystoscopy Status post creation of arteriovenous fistula left arm History of tooth extraction History of thoracentesis multiple, most recent 01-04-24 @ [facility] Family History Other No family history of adverse response to anesthesia No significant family history Social History Smoking Status: Unknown if ever smoked Tobacco Type: Cigarettes Second Hand Exposure: No; Do You Dip or Chew Tobacco: No; Hx Alcohol Use: No Hx Substance Use: No Preferred Language: Omani Communication Ability: Effective Communication Ability Comment: daughters speaks indonesian well, pt will need domestic violence counselor device Communication Tools: IPad Zoning Assistant Required: Yes Beliefs That Will Affect Care: None marital status: Current Living Situation: Spouse current occupational status: employed Other Information That Helps Us Care for You: No Feels Safe at Home: Yes Safety Concerns: Feels Safe At This Time Assistive Devices: Glasses and Oxygen - Continuous Review of Systems 2 Review of Systems: All systems reviewed & are unremarkable except as noted in HPI & below Physical Exam 2 Constitutional: well developed, well nourished, + ill appearing (rigors), + language barrier, + frail appearing and cooperative; no acute distress Eyes: EOM intact bilaterally and + periorbital abnormality (edema) ENMT: Ears: no external ear abnormality Nose: no external nose abnormality Mouth: + dry oral mucous membranes Neck: no nuchal rigidity Respiratory: + labored breathing Auscultation: + d iminished lung sounds Cardiovascular: Rate/Rhythm: regular rate (w/ frequent skipped beats) and regular rhythm Extremities: + AV fistula; no edema Gastrointestinal (Abdomen): Inspection/Auscultation: normal bowel sounds P ercussion/Palpation: abdomen soft; abdomen nontender Musculoskeletal: Extremities: strength 5/5 throughout Skin: no rashes, warm and dry Neurologic: sim, fluent speech, no tremor Psychiatric: Orientation: alert and oriented x 3 Results & Data Vital Signs (Past 12 Hours) Vital Signs Temp Pulse Pulse Resp BP BP Pulse Ox 01/15/24 19:30 72 197/91 H 01/15/24 19:08 36.9 C 84 22 180/83 H 92 01/15/24 19:00 74 171/101 H 01/15/24 18:45 36.9 C 82 01/15/24 18:28 73 01/15/24 18:26 01/15/24 18:00 73 16 165/104 H 93 01/15/24 17:30 73 01/15/24 15:35 75 34 H 165/91 H 92 01/15/24 14:15 74 18 91 01/15/24 13:56 68 01/15/24 13:39 70 18 94 01/15/24 12:13 70 18 94 01/15/24 12:13 94 01/15/24 12:13 36.8 C 75 20 155/101 H 94 O2 Del Method O2 Flow Rate 01/15/24 19:30 01/15/24 19:08 Oxymask 15 01/15/24 19:00 01/15/24 18:45 01/15/24 18:28 01/15/24 18:26 Oxymask 15 01/15/24 18:00 Oxymask 01/15/24 17:30 01/15/24 15:35 Oxymask 15 01/15/24 14:15 Room Air 01/15/24 13:56 01/15/24 13:39 Nasal Cannula 5 01/15/24 12:13 Nasal Cannula 5 01/15/24 12:13 Nasal Cannula 5 01/15/24 12:13 Nasal Cannula 5 Laboratory Results 01/15/24 13:13 01/15/24 13:13 Diagnostic Findings cxr reviewed
[2024-01-15] MEDS: ICU Protocol for HYPERglycemia SCH (20:19)
--- NOTE | 2024-01-15 21:46 | Dialysis Progress Note ---
Date of Service January 15, 2024 Assessment & Plan (1) ESRD (end stage renal disease) on dialysis: Plan: urgent dialysis today for volume control in this anuric patient; using TDC for access currently d/t thrombosed AVF -likely to need daily dialysis for some time -ensure 4 blood cx bottles given TDC use and w/ rigors high chance of infection -for 3.5 hr tx this evening w/ goal 4L UF as toelrated 3K bath; 350/600 and mini heparin anemia noted and worse than baseline; hold off on KARLEE today; trend hgb thrombosed AVF; using TDC currently > may need exchange if bacteremia; runs oK; defer any AVF intervention while concern for active infection whether pulm or o ther continue renal diet, OP binders volume overloaded currently given HTN, hypoxia >> ordered FR 1.2L (anuric); likely for daily dialysis; aggressive UF targets; continue hydralazine, imdur, losartan, metoprolol (2) Acute on chronic hypoxic respiratory failure: Plan: optimize volume status continue ICU monitoring > at risk for abrupt decompensation >f/u pulmonary recs and CT surgery -recommended cefepime vanco to ER but defer to critical care >> for small cefepime redose post HD (3) Chronic bilateral pleural effusions: Plan: loculated; clinically challenging and risk for recurrent / challenging to treat infections -per pulm/ CT surgery Admission and Anticipated Discharge Date Admission Date: January 15, 2024 Subjective seen on dialysis during tx; no c/o wosrening sob but ongoing sob, fatigue. + chills. no n/v/chest pain; for CT chest just after procedure worried about 01/17 vascular procedure status Review of Systems Review of Systems: All systems reviewed & are unremarkable except as noted in Subjective Physical Exam Constitutional: well developed, well nourished, + ill appearing (rigors), + language barrier, + frail appearing and cooperative; no acute distress Eyes: EOM intact bilaterally and + periorbital abnormality (edema) ENMT: Ears: no external ear abnormality Nose: no external nose abnormality Mouth: + dry oral mucous membranes Neck: no nuchal rigidity Respiratory: + labored breathing Auscultation: + d iminished lung sounds Cardiovascular: Rate/Rhythm: regular rate (w/ frequent skipped beats) and regular rhythm Extremities: + AV fistula (no t/b); no edema Gastrointestinal (Abdomen): Inspection/Auscultation: normal bowel sounds Percussion/Palpation: abdomen soft; abdomen nontender Musculoskeletal: Extremities: strength 5/5 throughout Skin: no rashes, warm and dry Psychiatric: Orientation: alert and oriented x 3 Results & Data Vital Signs (Past 12 Hours) Vital Signs Temp Pulse Pulse Resp BP BP Pulse Ox 01/15/24 21:00 82 179/97 H 01/15/24 20:31 77 26 H 155/87 H 01/15/24 20:30 77 155/87 H 01/15/24 20:00 86 23 182/91 H 95 01/15/24 20:00 72 182/91 H 01/15/24 19:30 80 20 179/91 H 95 01/15/24 19:30 01/15/24 19:30 72 197/91 H 01/15/24 19:08 36.9 C 84 22 180/83 H 92 01/15/24 19:00 78 22 95 01/15/24 19:00 171/101 H 01/15/24 19:00 75 01/15/24 19:00 74 171/101 H 01/15/24 18:45 36.9 C 82 01/15/24 18:28 73 01/15/24 18:26 01/15/24 18:00 73 16 165/104 H 93 01/15/24 17:30 73 01/15/24 15:35 75 34 H 165/91 H 92 01/15/24 14:15 74 18 91 01/15/24 13:56 68 01/15/24 13:39 70 18 94 01/15/24 12:13 70 18 94 01/15/24 12:13 94 01/15/24 12:13 36.8 C 75 20 155/101 H 94 O2 Del Method O2 Flow Rate 01/15/24 21:00 01/15/24 20:31 01/15/24 20:30 01/15/24 20:00 01/15/24 20:00 01/15/24 19:30 01/15/24 19:30 Oxymask 15 01/15/24 19:30 01/15/24 19:08 Oxymask 15 01/15/24 19:00 01/15/24 19:00 01/15/24 19:00 01/15/24 19:00 01/15/24 18:45 01/15/24 18:28 01/15/24 18:26 Oxymask 15 01/15/24 18:00 Oxymask 01/15/24 17:30 01/15/24 15:35 Oxymask 15 01/15/24 14:15 Room Air 01/15/24 13:56 01/15/24 13:39 Nasal Cannula 5 01/15/24 12:13 Nasal Cannula 5 01/15/24 12:13 Nasal Cannula 5 01/15/24 12:13 Nasal Cannula 5
[2024-01-15] MEDS: CEFEPIME 1,000 MG in SYRINGE 0 ML IV ONE (22:27)
[2024-01-15] MEDS: ATORVASTATIN 40 MG TAB PO SCH (22:28)
[2024-01-15] MEDS: OPTIRAY 320 100ml IV ONE (22:52)
[2024-01-15] MEDS: HEPARIN SOD 5,000 UNIT/0.5 ML VIAL SQ SCH (23:07)
[2024-01-15] MEDS: METOPROLOL SUCC 50MG EXT REL TAB PO SCH (23:14)
[2024-01-15] MEDS: LOSARTAN POTASSIUM 50 MG TAB PO SCH (23:14)
--- NOTE | 2024-01-16 00:01 | CT Scan Report ---
Exam(s): CT CHEST With Contrast IV Amt: 94ml optiray 320 EXAM: CT Chest With Intravenous Contrast CLINICAL HISTORY: Reason for exam: b/l loculated effusions. TECHNIQUE: Axial computed tomography images of the chest with intravenous contrast. Automated exposure control was utilized for the study. A dose lowering technique was utilized adhering to the principles of ALARA. CONTRAST: Patient received 94ml optiray 320 of IV contrast COMPARISON: No relevant prior studies available. FINDINGS: Lungs: Dependent airspace consolidations, consistent with multilobar pneumonia. Moderate LEFT and small RIGHT pleural effusions. No mass. Pleural space: See above. Heart: Cardiomegaly. No significant pericardial effusion. No significant coronary artery calcifications. Bones/joints: Unremarkable. No acute fracture. No dislocation. Soft tissues: Unremarkable. Vasculature: Unremarkable. No thoracic aortic aneurysm. No acute pulmonary embolism. Lymph nodes: Unremarkable. No enlarged lymph nodes. Tubes, lines and devices: RIGHT central venous line terminates in the SVC. IMPRESSION: 1. No acute pulmonary embolism. 2. Dependent airspace consolidations, consistent with multilobar pneumonia. Moderate LEFT and small RIGHT pleural effusions. Electronically signed by: Emanuel Russell MD 01/16/24 00:00 AM
[2024-01-16] MEDS: hydrALAZINE TAB 50 MG TAB PO SCH (00:16)
[2024-01-16 04:59] LABS: Basophils # (auto) 0.09 K/uL (0.00-0.20); Eosinophils # (auto) 0.17 K/uL (0.00-0.50); Hemoglobin 7.7 g/dl (14.0-18.0); Immature Granulocytes # (auto) 0.02 K/uL (0.01-0.20); Immature Granulocytes % (auto) 0.2 %; Lymphocytes % (auto) 10.4 %; Mean Corpuscular Hemoglobin 24.5 pg (25.0-34.0); Mean Corpuscular Hgb Conc 29.6 g/dL (32.0-36.0); Mean Corpuscular Volume 82.8 fL (80.0-100.0); Mean Platelet Volume 10.5 fL (9.4-12.4); Monocytes # (auto) 1.04 K/uL (0.11-0.59); Neutrophils # (auto) 6.44 K/uL (1.40-6.50); Neutrophils % (auto) 74.4 %; Platelet Count 338 K/uL (130-400); RDW Coefficient of Variation 19.9 % (11.5-14.5); RDW Standard Deviation 59.5 fL (36.4-46.3); Red Blood Count 3.14 M/uL (4.70-6.10); White Blood Count 8.66 K/ul (4.8-10.8)
[2024-01-16 05:13] LABS: BUN Creatinine Ratio 4.7 (10-20); Calcium 9.2 mg/dl (8.6-10.3); Creatinine Clr Calc Pharmacy 14.7 ml/min; Est GFR (Non-African American) 11.2 ml/min; Potassium 3.8 mmol/L (3.5-5.1)
[2024-01-16 05:17] LABS: Anisocytosis Present; Ovalocytes 1+
[2024-01-16] MEDS ORDERED: VANCOMYCIN LEVEL ONE (07:00)
[2024-01-16] MEDS ORDERED: SODIUM CHLORIDE 0.9% 1,000 ML IV PRN (07:25)
[2024-01-16] MEDS: ISOSORBIDE DINITRATE 20 MG TAB PO SCH (07:43)
[2024-01-16] MEDS: SEVELAMER CARBONATE 800 MG TAB PO SCH (07:44)
[2024-01-16] MEDS: allopurinoL 100 MG TAB PO SCH (07:44)
[2024-01-16] MEDS: FLUTICASONE PROPIONATE NA SPR 16 GM BTL SCH (07:45)
[2024-01-16] MEDS: ADVANCED PROBIOTIC 625 MG CAPSULE PO SCH (07:46)
--- NOTE | 2024-01-16 09:57 | Pulmonology Progress Note ---
Date of Service January 16, 2024 Assessment & Plan (1) Chronic hypoxic respiratory failure: (2) Acute on chronic hypoxic respiratory failure: (3) Chronic bilateral pleural effusions: (4) Renal failure (ARF), acute on chronic: (5) Hypertension: Plan Reason Critically Ill: 68 YOM with chronic respiratory failure now with bilateral pulmonary opacities, increase in bilateral pleural effusions, requiring emergent/urgent dialysis. Neuro - No acute needs CAM ICU: NEGATIVE Cardiac - Hx HTN, HFpEF, elevated HsCTNI - Acute on chronic heart failure with evidence of increase in pulmonary edema and pleural effusions- likely exacerbation on top of possible infection and ESRD -Improved status post dialysis. Respiratory - Acute on chronic hypoxic respiratory failure, acute on chronic bilateral pleural effusions Acute on chronic respiratory failure likely secondary to volume status, however can't exclude infective process at this time GI -No acute needs - renal heart healthy diet following dialysis and CT scan if respiratory status improves RENAL/LYTES - ESRD - Dialysis secondary to volume status- electrolytes and metabolic parameters tolerable - No acute needs ENDO - NO acute needs - ICU hyper/hypoglycemic protocol HEME - Anemia Chronic - no acute needs at this time ID - Can't exclude pulmonary source of infection at this time -Procalcitonin was negative on repeat, will will hold on further antibiotic use. LINES/IV ACCESS - PIV, Dialysis line Continue use of these lines DVT PROPHYLAXIS - Heparin 5000 units sub q q12 DISPO: Patient stable for downgrade to PCU status. Admission and Anticipated Discharge Date Admission Date: January 15, 2024 Subjective No significant events overnight. Tolerated dialysis well yesterday. Hypoxemia has improved significantly. Review of Systems Review of Systems: All systems reviewed & are unremarkable except as noted in HPI & below Physical Exam Physical Exam: PHYSICAL EXAM: General: awake, alert, no apparent distress Head: Normocephalic, atraumatic ENT: PERRLA, EOMI, no pharyngeal exudate, mucous membranes moist Neuro: AAO x 3, speech clear and appropriate, strength intact bilaterally 5/5, sensation intact and equal all extremities and dermatomes, no pronator drift Chest: equal rise and fall of the chest, no accessory muscle use, scattered rhonchi throughout diminished bilaterally in the bases Cardiac: Regular rate and rhythm, telemetry reviewed, skin warm dry, cap refill <3 seconds, peripheral pulses +2 no JVD, no murmur, trace lower extremity edema GI: NABS x 4 quadrants, soft, nontender to palpation, no rebound, guarding or tenderness : Spontaneously voiding, no pain, no CVA tenderness, Extremities: Normal inspection, no peripheral edema or erythema, calfs nontender to palpation Psych: Normal mood and affect Skin: no rash or erythema Results & Data Results & Data Vital Signs (Past 12 Hours) Vital Signs Temp Pulse Pulse Resp BP BP Pulse Ox 01/16/24 08:07 01/16/24 08:01 140/71 01/16/24 08:00 36.7 C 01/16/24 07:42 77 24 94 01/16/24 07:42 163/57 H 01/16/24 07:42 163/57 H 01/16/24 07:42 163/57 H 01/16/24 07:42 163/57 H 01/16/24 07:00 68 22 95 01/16/24 07:00 143/61 H 01/16/24 07:00 143/61 H 01/16/24 07:00 143/61 H 01/16/24 07:00 143/61 H 01/16/24 07:00 143/61 H 01/16/24 07:00 143/61 H 01/16/24 07:00 143/61 H 01/16/24 06:00 76 22 88 L 01/16/24 05:00 66 21 143/58 H 95 01/16/24 04:00 73 25 H 151/68 H 93 01/16/24 03:00 79 28 H 151/62 H 93 01/16/24 02:01 37.3 C 75 26 H 146/59 H 95 01/16/24 01:01 78 25 H 159/87 H 94 01/16/24 00:15 79 146/50 H 01/16/24 00:00 78 01/16/24 00:00 36.9 C 82 22 154/49 H 93 01/15/24 23:05 82 21 175/64 H 93 01/15/24 22:35 81 20 151/81 H 90 01/15/24 22:25 36.9 C 75 155/99 H 01/15/24 22:00 36.9 C 78 21 150/99 H 88 L 01/15/24 22:00 76 146/75 H O2 Del Method O2 Flow Rate 01/16/24 08:07 Nasal Cannula 4 01/16/24 08:01 01/16/24 08:00 01/16/24 07:42 01/16/24 07:42 01/16/24 07:42 01/16/24 07:42 01/16/24 07:42 01/16/24 07:00 01/16/24 07:00 01/16/24 07:00 01/16/24 07:00 01/16/24 07:00 01/16/24 07:00 01/16/24 07:00 01/16/24 07:00 01/16/24 06:00 Oxymask 5 01/16/24 05:00 Oxymask 6 01/16/24 04:00 01/16/24 03:00 6 01/16/24 02:01 6 01/16/24 01:01 8 01/16/24 00:15 01/16/24 00:00 01/16/24 00:00 4 01/15/24 23:05 Oxymask 8 01/15/24 22:35 Oxymask 8 01/15/24 22:25 01/15/24 22:00 Oxymask 9 01/15/24 22:00 PG Care Time/CCT Total # of Minutes Spent Total Time Spent with Patient: Total time spent is greater than 50% in coordination of care (as documented) at patient's floor/unit and/or counseling patient: Coding Level of Care Code 83227 SUB INP/OBS CARE 2/35MIN Diagnoses Chronic hypoxic respiratory failure J96.11 Acute on chronic hypoxic respiratory failure J96.21 Chronic bilateral pleural effusions J90 Renal failure (ARF), acute on chronic N17.9; N18.9 Hypertension I10
[2024-01-16] MEDS: HEPARIN SOD (PORCINE) 1000 UNIT/ML IV ONE (10:43)
--- NOTE | 2024-01-16 11:53 | Dialysis Progress Note ---
Date of Service January 16, 2024 Assessment & Plan (1) ESRD (end stage renal disease) on dialysis: Plan: urgent dialysis January 14 for volume control in this anuric patient who had missed a dialysis treatment; using TDC for access currently d/t thrombosed AVF -likely to need daily dialysis for some time. Tolerating dialysis today. Hypoxia improving. -ensure 4 blood cx bottles given TDC use and w/ rigors high chance of infection: Currently off all antibiotics -for 3-hour treatment today with goal 2.5 L UF 3K bath; 350/600 and mini heparin anemia noted and improving; trend hgb; will give max dose KARLEE today thrombosed AVF; using TDC currently > may need exchange if bacteremia--so far 4 out of 4 blood cultures no growth to date; runs OK; defer any AVF intervention while concern for active infection whether pulm or other continue renal diet, OP binders Improving volume overload currently given HTN, hypoxia >> continue FR 1.2L (anuric); likely for daily dialysis; aggressive UF targets; continue hydralazine, imdur, losartan, metoprolol (2) Acute on chronic hypoxic respiratory failure: Plan: Continue work to optimize volume status Decreasing oxygen needs, though still not at baseline >f/u pulmonary recs and CT surgery -recommended cefepime vanco to ER: No antibiotics currently (3) Chronic bilateral pleural effusions: Plan: loculated; clinically challenging and risk for recurrent / challenging to treat infections -per pulm/ CT surgery Admission and Anticipated Discharge Date Admission Date: January 15, 2024 Subjective Seen on dialysis. No interval events. Tolerated 4 L UF yesterday and on track to have 2.5 more liters UF today. States his breathing is better. No further rigors. No nausea vomiting. No confusion. Still quite tired. downgraded to PCU status Review of Systems 2 Review of Systems: All systems reviewed & are unremarkable except as noted in Subjective Physical Exam 2 Constitutional: well developed, well nourished, + language barrier, + frail appearing, cooperative and + lethargic (Really tired); no acute distress Eyes: EOM intact bilaterally and + periorbital abnormality (edema) ENMT: Ears: no external ear abnormality Nose: no external nose abnormality Mouth: + dry oral mucous membranes Neck: no nuchal rigidity Respiratory: + labored breathing Auscultation: + d iminished lung sounds On 4 L O2 nasal cannula Cardiovascular: Rate/Rhythm: regular rate and regular rhythm Heart Sounds: + murmur Extremities: + AV fistula (no t/b); no edema Gastrointestinal (Abdomen): Inspection/Auscultation: normal bowel sounds P ercussion/Palpation: abdomen soft; abdomen nontender Musculoskeletal: Extremities: strength 5/5 throughout Skin: no rashes, warm and dry Psychiatric: Orientation: alert and oriented x 3 Results & Data Vital Signs (Past 12 Hours) Vital Signs Temp Pulse Pulse Resp BP Pulse Ox O2 Del Method 01/16/24 10:30 62 119/66 01/16/24 10:22 63 122/69 01/16/24 10:12 36.8 C 66 01/16/24 08:07 Nasal Cannula 01/16/24 08:01 140/71 01/16/24 08:00 36.7 C 01/16/24 07:42 77 24 94 01/16/24 07:42 163/57 H 01/16/24 07:42 163/57 H 01/16/24 07:42 163/57 H 01/16/24 07:42 163/57 H 01/16/24 07:00 68 22 95 01/16/24 07:00 143/61 H 01/16/24 07:00 143/61 H 01/16/24 07:00 143/61 H 01/16/24 07:00 143/61 H 01/16/24 07:00 143/61 H 01/16/24 07:00 143/61 H 01/16/24 07:00 143/61 H 01/16/24 06:00 76 22 88 L Oxymask 01/16/24 05:00 66 21 143/58 H 95 Oxymask 01/16/24 04:00 73 25 H 151/68 H 93 01/16/24 03:00 79 28 H 151/62 H 93 01/16/24 02:01 37.3 C 75 26 H 146/59 H 95 01/16/24 01:01 78 25 H 159/87 H 94 01/16/24 00:15 79 146/50 H 01/16/24 00:00 78 01/16/24 00:00 36.9 C 82 22 154/49 H 93 O2 Flow Rate 01/16/24 10:30 01/16/24 10:22 01/16/24 10:12 01/16/24 08:07 4 01/16/24 08:01 01/16/24 08:00 01/16/24 07:42 01/16/24 07:42 01/16/24 07:42 01/16/24 07:42 01/16/24 07:42 01/16/24 07:00 01/16/24 07:00 01/16/24 07:00 01/16/24 07:00 01/16/24 07:00 01/16/24 07:00 01/16/24 07:00 01/16/24 07:00 01/16/24 06:00 5 01/16/24 05:00 6 01/16/24 04:00 01/16/24 03:00 6 01/16/24 02:01 6 01/16/24 01:01 8 01/16/24 00:15 01/16/24 00:00 01/16/24 00:00 4 Laboratory Results 01/16/24 04:33 01/16/24 04:33
[2024-01-16] MEDS: HEPARIN SOD (PORCINE) 1000 UNIT/ML IV SCH (11:58)
--- NOTE | 2024-01-16 13:31 | Hospitalist Progress Note ---
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 On work-up, pt noted to have fluid overload as he was unable to tolerate HD outpatient today due to worsening hypoxia. Chest x-ray from today and from 01/04/24 were personally reviewed and confirm worsening pulmonary congestion. Spoke with [employer] terminal plant operator, Dr. Munson, and patient needs emergent HD today due to worsening clinical status. However, due to clinical condition, HD should be done at bedside as there is potential for deterioration with treatment that would require emergent intervention. Additionally, pt is suspected to have an infection, with concern specifically that loculated pleural effusions are the source. Spoke with pulmonology who recommend transfer to [place] for thoracic surgery. Secondary to acute on chronic combined systolic and diastolic heart failure Complicated by multi lobar pneumonia and end-stage renal failure Remains stable in ICU following hemodialysis and intravenous antibiotic Transfer process initiated for possible thoracic surgery involved but no longer is needed Clinically much better and will continue current management and also hemodialysis as per [employer] operator Multilobar pneumonia Intravenous cefepime, vancomycin were started in the emergency room Blood cultures pending Antibiotic has been de-escalated to intravenous ceftriaxone 2000 mg daily Will add doxycycline to cover the atypicals (2) Acute on chronic combined systolic and diastolic CHF, NYHA class 3: Plan: As above (3) Chronic bilateral pleural effusions: Plan: CT did show moderate right and small left pleural effusion (4) ESRD (end stage renal disease) on dialysis: Plan: Will continue hemodialysis as per the petroleum terminal [employer] operator Plan DVT Prophylaxis: subQ heparin CODE STATUS Full Dispo: ICU for emergent bedside HD then potential transfer for thoracic surgery Downgraded to PCU status Admission and Anticipated Discharge Date Admission Date: January 15, 2024 Subjective 01/16/2024 The patient was seen and examined in the ICU He has been feeling much better and denies any symptoms at rest Gets easily tired and shortness of breath with minimal exertion Denies any chest pain and/or palpitation Review of Systems Review of Systems: All systems reviewed and are unremarkable except as noted below Physical Exam Physical Exam: Lying in bed without any acute distress Constitutional: + ill appearing and average body habitus Eyes: PERRL, conjunctivae normal, anicteric sclerae ENMT: external ear and nose normal, oropharynx normal Neck: trachea midline, no thyromegaly Respiratory: no respiratory distress Auscultation: + diminished lung sounds and + crackles (More on the right base) Cardiovascular: Rate/Rhythm: regular rate, regular rhythm and + bradycardic Heart Sounds: normal S1 and normal S2; no murmur Extremities: no edema Gastrointestinal (Abdomen): Inspection/Auscultation: normal bowel sounds; abdomen not distended Percussion/Palpation: abdomen soft; abdomen nontender Musculoskeletal: No acute arthritis involving any of the joint Neurologic: normal touch/pain/proprioception and moves all extremities; no focal motor deficits Lymphatic: no cervical or axillary lymphadenopathy Results & Data Results & Data Vital Signs (Past 12 Hours) Vital Signs Temp Pulse Pulse Resp BP Pulse Ox O2 Del Method 01/16/24 13:00 50 L 138/72 01/16/24 12:30 63 112/75 01/16/24 12:00 65 117/64 01/16/24 11:30 56 L 133/68 01/16/24 11:00 63 134/58 L 01/16/24 10:30 62 119/66 01/16/24 10:22 63 122/69 01/16/24 10:12 36.8 C 66 01/16/24 08:07 Nasal Cannula 01/16/24 08:01 140/71 01/16/24 08:00 36.7 C 01/16/24 07:42 77 24 94 01/16/24 07:42 163/57 H 01/16/24 07:42 163/57 H 01/16/24 07:42 163/57 H 01/16/24 07:42 163/57 H 01/16/24 07:00 68 22 95 01/16/24 07:00 143/61 H 01/16/24 07:00 143/61 H 01/16/24 07:00 143/61 H 01/16/24 07:00 143/61 H 01/16/24 07:00 143/61 H 01/16/24 07:00 143/61 H 01/16/24 07:00 143/61 H 01/16/24 06:00 76 22 88 L Oxymask 01/16/24 05:00 66 21 143/58 H 95 Oxymask 01/16/24 04:00 73 25 H 151/68 H 93 01/16/24 03:00 79 28 H 151/62 H 93 01/16/24 02:01 37.3 C 75 26 H 146/59 H 95 O2 Flow Rate 01/16/24 13:00 01/16/24 12:30 01/16/24 12:00 01/16/24 11:30 01/16/24 11:00 01/16/24 10:30 01/16/24 10:22 01/16/24 10:12 01/16/24 08:07 4 01/16/24 08:01 01/16/24 08:00 01/16/24 07:42 01/16/24 07:42 01/16/24 07:42 01/16/24 07:42 01/16/24 07:42 01/16/24 07:00 01/16/24 07:00 01/16/24 07:00 01/16/24 07:00 01/16/24 07:00 01/16/24 07:00 01/16/24 07:00 01/16/24 07:00 01/16/24 06:00 5 01/16/24 05:00 6 01/16/24 04:00 01/16/24 03:00 6 01/16/24 02:01 6 Laboratory Results Short CBC 01/15/24 01/16/24 Range/Units 13:13 04:33 WBC 9.54 8.66 (4.8-10.8) K/ul Hgb 7.1 L 7.7 L (14.0-18.0) g/dl Hct 23.8 L 26.0 L (42.0-52.0) % Plt Count 365 338 (130-400) K/uL BMP 01/15/24 01/16/24 13:13 04:33 Sodium 140 138 Potassium 3.7 3.8 Chloride 98 101 Carbon Dioxide 33 H 28 BUN 43 H 23 D Creatinine 7.30 H* 4.90 H* D Glucose 98 71 Calcium 8.8 9.2 Liver Function 06/24/24 Range/Units 13:13 Total Bilirubin 0.6 (0.2-1.0) mg/dl AST 41 H (13-39) U/L ALT 31 (7-52) U/L Alkaline Phosphatase 78 (34-104) U/L Albumin 3.4 (3.4-5.0) gm/dl Medications Administered Current Inpatient Medications Acetaminophen (Acetaminophen 325 Mg Tab) 650 mg PO Q4 PRN PRN Reason: Pain Stop: 02/14/24 19:16 Allopurinol (Allopurinol 100 Mg Tab) 100 mg PO QAM MYLES Stop: 02/15/24 08:59 Last Admin: 01/16/24 07:44 Dose: 100 mg Atorvastatin Calcium (Atorvastatin 40 Mg Tab) 40 mg PO HS MYLES Stop: 02/14/24 20:59 Last Admin: 01/15/24 22:28 Dose: 40 mg Fluticasone Propionate (Fluticasone Propionate Na Spr 16 Gm Btl) 2 sprays NA QAM MYLES Stop: 02/15/24 08:59 Last Admin: 01/16/24 07:45 Dose: 2 sprays Gabapentin (Gabapentin 100 Mg Cap) 100 mg PO MoWeFr PRN PRN Reason: After dialysis Stop: 02/14/24 19:29 Heparin Sodium (Porcine) (Heparin Sod 5,000 Unit/0.5 Ml Vial) 5,000 units SQ Q12 MYLES Stop: 02/14/24 20:59 Last Admin: 01/16/24 07:45 Dose: 5,000 units Hydralazine HCl (Hydralazine Tab 50 Mg Tab) 100 mg PO TID MYLES Stop: 02/14/24 20:59 Last Admin: 01/16/24 07:45 Dose: 100 mg Ceftriaxone Sodium (Rocephin) 2,000 mg in 50 mls @ 100 mls/hr IV Q24H MYLES Stop: 01/23/24 10:14 Isosorbide Dinitrate (Isosorbide Dinitrate 20 Mg Tab) 20 mg PO 0700,1200,1700 MYLES Stop: 02/15/24 06:59 Last Admin: 01/16/24 07:43 Dose: 20 mg Lactobacillus Acidophilus (Advanced Probiotic 625 Mg Capsule) 625 mg PO DAILY MYLES Stop: 02/15/24 08:59 Last Admin: 01/16/24 07:46 Dose: 625 mg Losartan Potassium (Losartan Potassium 50 Mg Tab) 50 mg PO AMHS MYLES Stop: 02/14/24 20:59 Last Admin: 01/16/24 07:46 Dose: 50 mg Metoprolol Succinate (Metoprolol Succ 50mg Ext Rel Tab) 50 mg PO BID MYLES Stop: 02/14/24 20:59 Last Admin: 01/16/24 07:46 Dose: 50 mg Sevelamer Carbonate (Sevelamer Carbonate 800 Mg Tab) 800 mg PO TIDM [facility] Stop: 02/15/24 07:59 Last Admin: 01/16/24 07:44 Dose: 800 mg
[2024-01-16] MEDS: cefTRIAXone SODIUM 2,000 MG/50 ML BAG IV SCH (13:56)
[2024-01-16] MEDS: DOXYCYCLINE HYCLATE 100 MG CAP PO SCH (16:35)
[2024-01-17 05:19] LABS: Basophils # (auto) 0.08 K/uL (0.00-0.20); Basophils % (auto) 0.9 %; Eosinophils # (auto) 0.32 K/uL (0.00-0.50); Eosinophils % (auto) 3.7 %; Hematocrit (blood only) 24.8 % (42.0-52.0); Hemoglobin 7.4 g/dl (14.0-18.0); Immature Granulocytes # (auto) 0.03 K/uL (0.01-0.20); Immature Granulocytes % (auto) 0.3 %; Lymphocytes # (auto) 1.43 K/uL (1.20-3.40); Lymphocytes % (auto) 16.6 %; Mean Corpuscular Hemoglobin 24.5 pg (25.0-34.0); Mean Corpuscular Hgb Conc 29.8 g/dL (32.0-36.0); Mean Corpuscular Volume 82.1 fL (80.0-100.0); Mean Platelet Volume 10.5 fL (9.4-12.4); Monocytes # (auto) 1.32 K/uL (0.11-0.59); Monocytes % (auto) 15.3 %; Neutrophils # (auto) 5.43 K/uL (1.40-6.50); Neutrophils % (auto) 63.2 %; Platelet Count 336 K/uL (130-400); RDW Coefficient of Variation 19.2 % (11.5-14.5); RDW Standard Deviation 57.4 fL (36.4-46.3); Red Blood Count 3.02 M/uL (4.70-6.10); White Blood Count 8.61 K/ul (4.8-10.8)
[2024-01-17 05:36] LABS: BUN Creatinine Ratio 4.8 (10-20); Calcium 9.6 mg/dl (8.6-10.3); Creatinine Clr Calc Pharmacy 12.1 ml/min; Est GFR (African American) 12.6 ml/min; Est GFR (Non-African American) 10.8 ml/min; Magnesium 1.8 mg/dl (1.7-2.4); Phosphorus 3.8 mg/dl (2.5-4.9)
[2024-01-17 06:38] LABS: Anisocytosis Present; Polychromasia 1+; Target Cells 1+
[2024-01-17] MEDS ORDERED: SODIUM CHLORIDE 0.9% 1,000 ML IV PRN (07:25)
--- NOTE | 2024-01-17 07:35 | Nephrology Progress Note ---
Date of Service January 17, 2024 Assessment & Plan (1) ESRD (end stage renal disease) on dialysis: Plan: urgent dialysis January 14 for volume control in this anuric patient who had missed a dialysis treatment; using TDC for access currently d/t thrombosed AVF Hypoxia improving. -blood cxs remain NGTD; no further rigors; Currently off all antibiotics -for 4-hour treatment today with goal 3 L UF 3K bath; 350/600 and mini heparin anemia noted and stable but significant; trend hgb; will give max dose KARLEE today and 200 mg venofer (OP tsat 01/07 was 10%) thrombosed AVF; using TDC currently > see below re OP appt continue renal diet, OP binders >> fluid limit is critical wtih this pt Improving volume overload currently given HTN, hypoxia >> continue FR 1.2L (anuric); aggressive UF targets; continue hydralazine, imdur, losartan, metoprolol (2) Clotted dialysis access: Plan: has appointment for this issue w/ his AVF as OP tomorrow >> if clinically stable for d/c today, should keep that appt (3) Acute on chronic hypoxic respiratory failure: Plan: Hypoxia improving and nearly to OP baseline. Continue work to optimize volume status >f/u pulmonary recs and CT surgery -No antibiotics currently (4) Chronic bilateral pleural effusions: Plan: loculated; clinically challenging and risk for recurrent / challenging to treat infections -per pulm/ CT surgery Admission and Anticipated Discharge Date Admission Date: January 15, 2024 Subjective no interval events; down to 2L; asking nurses for water frequently. still tired, but slept some. no more rigors. Review of Systems 2 Review of Systems: All systems reviewed & are unremarkable except as noted in Subjective Physical Exam 2 Constitutional: well developed, well nourished, + language barrier, + frail appearing and cooperative; no acute distress Eyes: EOM intact bilaterally and + periorbital abnormality (edema) ENMT: Ears: no external ear abnormality Nose: no external nose abnormality Mouth: + dry oral mucous membranes Neck: no nuchal rigidity Respiratory: + labored breathing Auscultation: + d iminished lung sounds (L>R bases) and + crackles (R base) Cardiovascular: Rate/Rhythm: regular rate and regular rhythm Heart Sounds: + murmur Extremities: + AV fistula (no t/b); no edema Gastrointestinal (Abdomen): Inspection/Auscultation: normal bowel sounds P ercussion/Palpation: abdomen soft; abdomen nontender Musculoskeletal: Extremities: strength 5/5 throughout Skin: no rashes, warm and dry Psychiatric: Orientation: alert and oriented x 3 Results & Data Vital Signs (Past 12 Hours) Vital Signs Temp Pulse Pulse Resp BP Pulse Ox O2 Del Method 01/17/24 04:00 37.2 C 66 20 99 Nasal Cannula 01/17/24 00:51 75 01/17/24 00:00 37.8 C H 73 20 132/85 97 Nasal Cannula 01/16/24 20:00 72 18 153/81 H O2 Flow Rate 01/17/24 04:00 2 01/17/24 00:51 01/17/24 00:00 2 01/16/24 20:00 Laboratory Results 01/17/24 04:48 01/17/24 04:48
[2024-01-17] MEDS: SODIUM CHLORIDE 0.65% NA SOLN 45 ML (OCEAN) ONE (08:13)
[2024-01-17] MEDS: EPOETIN ALFA 20,000 UNITS/ML VIAL IV SCH (12:38)
[2024-01-17] MEDS: IRON SUCROSE 200 MG in SYRINGE 0 ML IV ONE (12:39)
[2024-01-17] MEDS: HEPARIN SOD (PORCINE) 1000 UNIT/ML IV SCH (12:39)
[2024-01-17] MEDS: HEPARIN SOD (PORCINE) 1000 UNIT/ML IV ONE (12:39)
[2024-01-17] MEDS ORDERED: DICLOFENAC SOD 1% GEL 100 GM TUBE EXT PRN (14:15)
--- NOTE | 2024-01-17 16:14 | Hospitalist Progress Note ---
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 On work-up, pt noted to have fluid overload as he was unable to tolerate HD outpatient today due to worsening hypoxia. Chest x-ray from today and from 01/04/24 were personally reviewed and confirm worsening pulmonary congestion. Spoke with senior web developer, Dr. Munson, and patient needs emergent HD today due to worsening clinical status. However, due to clinical condition, HD should be done at bedside as there is potential for deterioration with treatment that would require emergent intervention. Additionally, pt is suspected to have an infection, with concern specifically that loculated pleural effusions are the source. Spoke with pulmonology who recommend transfer to [place] for thoracic surgery. Acute on chronic respiratory failure with hypoxia Acute on chronic combined systolic and diastolic heart failure in setting of ESRD on HD Volume status managed through hemodialysis Appreciate nephrology, critical care input Continue metoprolol, losartan Also on isosorbide Wean off of supplemental oxygen as able Multilobar pneumonia --Chest CT:No acute pulmonary embolism. Dependent airspace consolidations, consistent with multilobar pneumonia. Moderate LEFT and small RIGHT pleural effusions. --Blood cultures: negative to date --IV cefepime, vancomycin>> de-escalated to Rocephin, doxycycline (2) Acute on chronic combined systolic and diastolic CHF, NYHA class 3: Plan: As above (3) Chronic bilateral pleural effusions: Plan: CT did show moderate right and small left pleural effusion Volume status improved with dialysis (4) ESRD (end stage renal disease) on dialysis: Plan: Continue dialysis as per senior web developer Appreciate nephrology input Clotted dialysis access Needs follow-up with vascular surgery as outpatient HTN HLP Continue home medications as able Plan DVT Px SQ heparin CODE STATUS Full cODE Admission and Anticipated Discharge Date Admission Date: January 15, 2024 Subjective Patient is seen and examined at bedside Had hemodialysis today States noticing some floaters while having hemodialysis Denies any other complaints Denies any dyspnea, dizziness, nausea, vomiting, abdominal pain, chest pain Review of Systems Review of Systems: All systems reviewed & are unremarkable except as noted in Subjective Physical Exam Physical Exam: Physical Exam: Vitals signs as noted above General Appearance:Moderately built and nourished, no apparent distress Head: normocephalic, Atraumatic Eyes: normal inspection, EOMI Neck: supple, Trachea midline Respiratory/Chest:Decreased breath sounds, CTA, No accessory muscle use Cardiovascular: S1, S2, + murmur Abdomen/GI:Soft, Non tender, Bowel sounds present Extremities/Musculoskeletal:normal inspection, no edema Neurologic/Psych:AAOX3, grossly no focal neurological deficits Skin: normal color, warm Results & Data Results & Data Vital Signs (Past 12 Hours) Vital Signs Temp Pulse Pulse Pulse Resp BP BP 01/17/24 15:23 37.1 C 70 22 84/46 L 01/17/24 12:48 37 C 66 149/47 H 01/17/24 12:43 67 159/89 H 01/17/24 12:30 65 145/42 H 01/17/24 12:12 70 131/58 L 01/17/24 12:00 67 118/68 01/17/24 11:30 65 151/46 H 01/17/24 11:00 65 157/65 H 01/17/24 10:30 62 137/54 L 01/17/24 10:00 62 172/77 H 01/17/24 09:30 59 L 141/59 H 01/17/24 09:00 64 131/57 L 01/17/24 08:39 63 112/39 L 01/17/24 08:30 36.9 C 63 01/17/24 08:00 01/17/24 08:00 37 C 67 22 159/76 H Pulse Ox O2 Del Method O2 Flow Rate 01/17/24 15:23 97 Nasal Cannula 01/17/24 12:48 01/17/24 12:43 01/17/24 12:30 01/17/24 12:12 01/17/24 12:00 01/17/24 11:30 01/17/24 11:00 01/17/24 10:30 01/17/24 10:00 01/17/24 09:30 01/17/24 09:00 01/17/24 08:39 01/17/24 08:30 01/17/24 08:00 Nasal Cannula 2 06/26/24 08:00 99 Nasal Cannula 2 Laboratory Results Short CBC 01/17/24 Range/Units 04:48 WBC 8.61 (4.8-10.8) K/ul Hgb 7.4 L (14.0-18.0) g/dl Hct 24.8 L (42.0-52.0) % Plt Count 336 (130-400) K/uL BMP 01/17/24 04:48 Sodium 138 Potassium 4.0 Chloride 101 Carbon Dioxide 28 BUN 24 H Creatinine 5.03 H* Glucose 82 Calcium 9.6
[2024-01-18 08:23] LABS: Basophils # (auto) 0.09 K/uL (0.00-0.20); Basophils % (auto) 1.3 %; Eosinophils # (auto) 0.46 K/uL (0.00-0.50); Eosinophils % (auto) 6.4 %; Hematocrit (blood only) 26.9 % (42.0-52.0); Immature Granulocytes # (auto) 0.02 K/uL (0.01-0.20); Immature Granulocytes % (auto) 0.3 %; Lymphocytes % (auto) 19.6 %; Mean Corpuscular Hemoglobin 24.7 pg (25.0-34.0); Mean Corpuscular Hgb Conc 29.7 g/dL (32.0-36.0); Mean Platelet Volume 10.7 fL (9.4-12.4); Monocytes # (auto) 1.18 K/uL (0.11-0.59); Monocytes % (auto) 16.5 %; Neutrophils # (auto) 4.01 K/uL (1.40-6.50); Neutrophils % (auto) 55.9 %; Platelet Count 350 K/uL (130-400); RDW Coefficient of Variation 19.2 % (11.5-14.5); RDW Standard Deviation 58.6 fL (36.4-46.3); Red Blood Count 3.24 M/uL (4.70-6.10); White Blood Count 7.16 K/ul (4.8-10.8)
[2024-01-18 08:44] LABS: BUN Creatinine Ratio 4.2 (10-20); Calcium 9.8 mg/dl (8.6-10.3); Creatinine Clr Calc Pharmacy 19.2 ml/min; Est GFR (African American) 14.3 ml/min; Est GFR (Non-African American) 12.4 ml/min; Phosphorus 4.2 mg/dl (2.5-4.9)
--- NOTE | 2024-01-18 12:09 | Hospitalist Progress Note ---
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 On work-up, pt noted to have fluid overload as he was unable to tolerate HD outpatient today due to worsening hypoxia. Chest x-ray from today and from 01/04/24 were personally reviewed and confirm worsening pulmonary congestion. Spoke with jackhammer splitter operator, Dr. Munson, and patient needs emergent HD today due to worsening clinical status. However, due to clinical condition, HD should be done at bedside as there is potential for deterioration with treatment that would require emergent intervention. Additionally, pt is suspected to have an infection, with concern specifically that loculated pleural effusions are the source. Spoke with pulmonology who recommend transfer to [place] for thoracic surgery. Acute on chronic respiratory failure with hypoxia Acute on chronic combined systolic and diastolic heart failure Chronic oxygen dependency in setting of ESRD on HD Volume status managed through hemodialysis Appreciate nephrology, critical care input Continue metoprolol, losartan Also on isosorbide Next dialysis tomorrow as outpatient Plan to be discharged home today Multilobar pneumonia --Chest CT:No acute pulmonary embolism. Dependent airspace consolidations, consistent with multilobar pneumonia. Moderate LEFT and small RIGHT pleural effusions. --Blood cultures: negative to date --IV cefepime, vancomycin>> de-escalated to Rocephin, doxycycline Transition to oral antibiotics to complete the course (2) Acute on chronic combined systolic and diastolic CHF, NYHA class 3: Plan: As above (3) Chronic bilateral pleural effusions: Plan: CT did show moderate right and small left pleural effusion Volume status improved with dialysis (4) ESRD (end stage renal disease) on dialysis: Plan: Continue dialysis as per jackhammer splitter operator Appreciate nephrology input Clotted dialysis access Needs follow-up with vascular surgery as outpatient HTN HLP Continue home medications as able Plan DVT Px SQ heparin CODE STATUS Full Code Disposition Home Admission and Anticipated Discharge Date Admission Date: January 15, 2024 Subjective Patient is seen and examined at bedside States feeling well today Offers no new complaints Discussed with nephrology today Denies any dyspnea, dizziness, nausea, vomiting, abdominal pain, chest pain Plan to be discharged home today Review of Systems Review of Systems: All systems reviewed & are unremarkable except as noted in Subjective Physical Exam Physical Exam: Physical Exam: Vitals signs as noted above General Appearance:Moderately built and nourished, no apparent distress Head: normocephalic, Atraumatic Eyes: normal inspection, EOMI Neck: supple, Trachea midline Respiratory/Chest:Decreased breath sounds, CTA, No accessory muscle use Cardiovascular: S1, S2, + murmur Abdomen/GI:Soft, Non tender, Bowel sounds present Extremities/Musculoskeletal:normal inspection, no edema Neurologic/Psych:AAOX3, grossly no focal neurological deficits Skin: normal color, warm Results & Data Results & Data Vital Signs (Past 12 Hours) Vital Signs Temp Pulse Pulse Pulse Resp BP BP 01/18/24 11:52 36.9 C 57 L 18 96/58 L 01/18/24 08:20 36.8 C 61 17 103/56 L 01/18/24 07:11 01/18/24 07:02 55 L 01/18/24 03:45 36.8 C 63 14 118/63 Pulse Ox O2 Del Method O2 Flow Rate 01/18/24 11:52 98 Room Air 01/18/24 08:20 96 Nasal Cannula 2 01/18/24 07:11 Nasal Cannula 2 01/18/24 07:02 01/18/24 03:45 98 Nasal Cannula 2 Laboratory Results Short CBC 01/18/24 Range/Units 08:06 WBC 7.16 (4.8-10.8) K/ul Hgb 8.0 L (14.0-18.0) g/dl Hct 26.9 L (42.0-52.0) % Plt Count 350 (130-400) K/uL BMP 01/18/24 08:06 Sodium 139 Potassium 4.0 Chloride 104 Carbon Dioxide 26 BUN 19 Creatinine 4.51 H* D Glucose 76 Calcium 9.8
--- NOTE | 2024-01-18 12:20 | Discharge Summary ---
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 Pt was most recently admitted to this facility 12/03-12/08/23 with multifactorial acute on chronic respiratory failure including recurrent pleural effusions and parainfluenza infection with concern for superimposed bacterial infection. He was also noted to have acute on chronic HFrEF, with volume management by HD. He has had multiple thoracentesis procedure with most recent US guided left thoracentesis on 01/04/24 - 200 cc removed, pt tolerated well. Effusion noted to be loculated on that report. Pt reports he developed a dry cough about a week ago. Over the last few days, cough has become productive of white to costa sputum. Over the last two days, he reports starting to feel "sick," specifically noting increased dyspnea with exertion. He did not check his temperature at home but notes temp at HD today was 99.2F. He is on a M/W/F schedule for HD and denies missing any treatments. When he arrived for HD today, his pulseox was noted to be 77% on his baseline 1.5L. O2 increased to 5L with improvement of pulseox to the low to mid 90s. However, when HD treatment started, sats again dropped to the 80s even with the increased O2 so HD was stopped and patient was referred to the ED. Pt was also noted to have shaking chills at dialysis, which is unsual for him. He denies N/V/D. He does not make urine. Translation service used - #[id number] Admission Exam Per Admitting Provider General: Sitting comfortably in bed, not in acute distress, on oxymask HEENT: EOMI, ADRIAN, MMM Chest: Rt permacath site looks clean. Fair breath sounds bilaterally with basilar crackles CVS: Regular rate and rhythm, normal heart sounds, no murmur Abdomen: Soft, non tender, not distended, normal bowel sounds Neuro: Awake, alert, oriented, conversing well, non focal Extremities: No edema Principal Diagnosis Acute on chronic respiratory failure with hypoxia Acute on chronic combined systolic and diastolic heart failure Multilobar pneumonia ESRD Discharge Data Allergies Allergy/AdvReac Type Severity Reaction Status Date / Time No Known Allergies Allergy Verified 01/11/24 11:51 Consultations 01/15/24 15:36 ED Decision to Admit Stat 01/15/24 16:10 Consult Corporate Sales Trainer Routine 01/15/24 16:58 Consult Corporate Sales Trainer Routine 01/15/24 19:15 Consult Nephrology Routine Procedures Performed Laboratory Results WBC 7.16 K/ul (4.8-10.8) 01/18/24 08:06 RBC 3.24 M/uL (4.70-6.10) L 01/18/24 08:06 Hgb 8.0 g/dl (14.0-18.0) L 01/18/24 08:06 Hct 26.9 % (42.0-52.0) L 01/18/24 08:06 MCV 83.0 fL (80.0-100.0) 01/18/24 08:06 MCH 24.7 pg (25.0-34.0) L 01/18/24 08:06 MCHC 29.7 g/dL (32.0-36.0) L 01/18/24 08:06 RDW Std Deviation 58.6 fL (36.4-46.3) H 01/18/24 08:06 RDW Coeff of Diamond 19.2 % (11.5-14.5) H 01/18/24 08:06 Plt Count 350 K/uL (130-400) 01/18/24 08:06 MPV 10.7 fL (9.4-12.4) 01/18/24 08:06 Immature Gran % (Auto) 0.3 % 01/18/24 08:06 Neut % (Auto) 55.9 % 01/18/24 08:06 Lymph % (Auto) 19.6 % 01/18/24 08:06 [place] % (Auto) 16.5 % 01/18/24 08:06 Eos % (Auto) 6.4 % 01/18/24 08:06 Baso % (Auto) 1.3 % 01/18/24 08:06 Neut # (Auto) 4.01 K/uL (1.40-6.50) 01/18/24 08:06 Lymph # (Auto) 1.40 K/uL (1.20-3.40) 01/18/24 08:06 Teton # (Auto) 1.18 K/uL (0.11-0.59) H 01/18/24 08:06 Eos # (Auto) 0.46 K/uL (0.00-0.50) 01/18/24 08:06 Baso # (Auto) 0.09 K/uL (0.00-0.20) 01/18/24 08:06 Immature Gran # (Auto) 0.02 K/uL (0.01-0.20) 01/18/24 08:06 Polychromasia 1+ 01/17/24 04:48 Hypochromasia Present 01/15/24 13:13 Anisocytosis Present 01/17/24 04:48 Target Cells 1+ 01/17/24 04:48 Ovalocytes 1+ 01/16/24 04:33 PT 11.7 Seconds (9.0-12.0) 01/15/24 13:13 INR 1.1 (0.9-1.1) 01/15/24 13:13 APTT 32 Seconds (21-31) H 01/15/24 13:13 PTT Ratio 1.2 01/15/24 13:13 VBG pH 7.40 (7.36-7.41) 01/15/24 13:13 VBG pCO2 52 mmHg (38-50) H 01/15/24 13:13 VBG pO2 38 mmHg 01/15/24 13:13 VBG HCO3 32 mmol/L 01/15/24 13:13 VBG O2 Saturation 64.5 % 01/15/24 13:13 VBG Base Excess 6.6 mEq/L 01/15/24 13:13 Sodium 139 mmol/L (136-145) 01/18/24 08:06 Potassium 4.0 mmol/L (3.5-5.1) 01/18/24 08:06 Chloride 104 mmol/L (98-107) 01/18/24 08:06 Carbon Dioxide 26 mmol/L (21-32) 01/18/24 08:06 Anion Gap 9 (3-11) 01/18/24 08:06 BUN 19 mg/dl (6-23) 01/18/24 08:06 Creatinine 4.51 mg/dl (0.6-1.4) H* D 01/18/24 08:06 Est Cr Clr Drug Dosing 19.2 ml/min 01/18/24 08:06 Est GFR ( Amer) 14.3 ml/min 01/18/24 08:06 Est GFR (Non-Af Amer) 12.4 ml/min 01/18/24 08:06 BUN/Creatinine Ratio 4.2 (10-20) L 01/18/24 08:06 Glucose 76 mg/dl (70-99(Fasting)) 01/18/24 08:06 POC Glucose 140 mg/dl (70-99) H 01/16/24 18:25 Calcium 9.8 mg/dl (8.6-10.3) 01/18/24 08:06 Phosphorus 4.2 mg/dl (2.5-4.9) 01/18/24 08:06 Magnesium 2.0 mg/dl (1.7-2.4) 01/18/24 08:06 Total Bilirubin 0.6 mg/dl (0.2-1.0) 01/15/24 13:13 AST 41 U/L (13-39) H 01/15/24 13:13 ALT 31 U/L (7-52) 01/15/24 13:13 Alkaline Phosphatase 78 U/L (34-104) 01/15/24 13:13 Troponin I High Sens 134.3 pg/ml (0-20) H* 01/15/24 16:02 B-Natriuretic Peptide > 4700 pg/ml (0-100) H 01/15/24 13:13 Total Protein 6.2 gm/dl (6.0-8.3) 01/15/24 13:13 Albumin 3.4 gm/dl (3.4-5.0) 01/15/24 13:13 Globulin 2.8 gm/dl (2.5-4.0) 01/15/24 13:13 Albumin/Globulin Ratio 1.2 (0.9-2) 01/15/24 13:13 Procalcitonin 0.86 ng/ml (0-0.5) H 01/16/24 09:04 Nasal Screen MRSA (PCR) Negative (Negative) 01/15/24 Unknown SARS-CoV-2 (PCR) NEGATIVE (Negative) 01/15/24 13:15 Hep Bs Antigen Negative (Negative) 01/15/24 21:04 Influenza Type A (PCR) Negative (Neg) 01/15/24 13:15 Influenza Type B (PCR) Negative (Neg) 01/15/24 13:15 RSV (RT-PCR) Negative (Neg) 01/15/24 13:15 Impressions Chest X-Ray 01/15/24 13:06 SINGLE VIEW CHEST CLINICAL HISTORY: Dyspnea FINDINGS: An AP upright chest radiograph is compared to study dated 01/04/2024. Correlation is made with chest CT dated 06/12/2023. A right internal jugular central venous catheter is unchanged position. The heart is enlarged noting atherosclerotic calcification of the thoracic aorta. There is pulmonary vascular congestion. Bilateral airspace opacities likely represent pulmonary edema. There are left larger than right pleural effusions with dependent consolidation. No pneumothorax is seen. The skeletal structures are osteopenic. The bony thorax is grossly intact. Degenerative change is noted in the shoulders and spine. IMPRESSION: 1. Cardiomegaly with evidence of congestive failure. 2. Bilateral airspace opacities likely represent pulmonary edema. Correlate clinically. Radiographic follow-up to resolution is recommended. 3. Left larger than right pleural effusions with dependent consolidation. ACT 112: Negative or not required by law. Electronically signed by: Tone Mccain M.D. 01/15/2024 2:[address] 01/15/24 17:54 Exam(s): CT CHEST With Contrast IV Amt: 94ml optiray 320 EXAM: CT Chest With Intravenous Contrast CLINICAL HISTORY: Reason for exam: b/l loculated effusions. TECHNIQUE: Axial computed tomography images of the chest with intravenous contrast. Automated exposure control was utilized for the study. A dose lowering technique was utilized adhering to the principles of ALARA. CONTRAST: Patient received 94ml optiray 320 of IV contrast COMPARISON: No relevant prior studies available. FINDINGS: Lungs: Dependent airspace consolidations, consistent with multilobar pneumonia. Moderate LEFT and small RIGHT pleural effusions. No mass. Pleural space: See above. Heart: Cardiomegaly. No significant pericardial effusion. No significant coronary artery calcifications. Bones/joints: Unremarkable. No acute fracture. No dislocation. Soft tissues: Unremarkable. Vasculature: Unremarkable. No thoracic aortic aneurysm. No acute pulmonary embolism. Lymph nodes: Unremarkable. No enlarged lymph nodes. Tubes, lines and devices: RIGHT central venous line terminates in the SVC. IMPRESSION: 1. No acute pulmonary embolism. 2. Dependent airspace consolidations, consistent with multilobar pneumonia. Moderate LEFT and small RIGHT pleural effusions. 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 On work-up, pt noted to have fluid overload as he was unable to tolerate HD outpatient today due to worsening hypoxia. Chest x-ray from today and from 01/04/24 were personally reviewed and confirm worsening pulmonary congestion. Spoke with associate professor of church music, Dr. Munson, and patient needs emergent HD today due to worsening clinical status. However, due to clinical condition, HD should be done at bedside as there is potential for deterioration with treatment that would require emergent intervention. Additionally, pt is suspected to have an infection, with concern specifically that loculated pleural effusions are the source. Spoke with pulmonology who recommend transfer to [place] for thoracic surgery. Acute on chronic respiratory failure with hypoxia Acute on chronic combined systolic and diastolic heart failure Chronic oxygen dependency in setting of ESRD on HD Volume status managed through hemodialysis Appreciate nephrology, critical care input Continue metoprolol, losartan Also on isosorbide Next dialysis tomorrow as outpatient Plan to be discharged home today Multilobar pneumonia --Chest CT:No acute pulmonary embolism. Dependent airspace consolidations, consistent with multilobar pneumonia. Moderate LEFT and small RIGHT pleural effusions. --Blood cultures: negative to date --IV cefepime, vancomycin>> de-escalated to Rocephin, doxycycline Transition to oral antibiotics to complete the course (2) Acute on chronic combined systolic and diastolic CHF, NYHA class 3: As above (3) Chronic bilateral pleural effusions: CT did show moderate right and small left pleural effusion Volume status improved with dialysis (4) ESRD (end stage renal disease) on dialysis: Continue dialysis as per associate professor of church music Appreciate nephrology input Clotted dialysis access Needs follow-up with vascular surgery as outpatient HTN HLP Continue home medications as able Plan DVT Px SQ heparin CODE STATUS Full Code Disposition Home Total Time Total Time Spent Total Time Spent (In Minutes): 53 minutes Discharge Plan Discharge Items Patient Disposition: Home - Self-Care Reason For Visit: ACUTE ON CHRONIC RESP FAILURE, ESRD ON HD Discharge Diagnosis: Acute on chronic respiratory failure with hypoxia Acute on chronic combined systolic and diastolic heart failure Multilobar pneumonia ESRD Activity: Per Instructions section Exercise/Sports: Gradually increase as tolerated Non-emergency contact: Primary Care Provider and Channeling Machine Operator Call non-emergency contact if: you have any medication questions, your symptoms worsen, your pain is concerning for you and you have a fever Follow-up/Referrals: Cisco Starkey MD [Primary Care Provider] - (Date & Time 01/23/2024 11:20 AM Provider Cisco Starkey MD Department [facility] ) Diet: Dialysis Renal Addtl Attending Provider Instructions: Follow-up with your primary care physician Dr. Starkey on 01/23/2024 11:20 AM Follow-up with your associate professor of church music for dialysis as scheduled -- Your final blood cultures are pending at the time of discharge. Follow-up with your physician for results. --Complete the antibiotic course cefdinir, doxycycline as prescribed for pneumonia Seek immediate medical attention if your symptoms reoccur or worsen Please take all medications as instructed on discharge list below. Please call if you have any questions or problems. You can reach a [facility] hospitalist on duty at [facility] 24 hours a day by calling [phone] Pending Studies at Discharge: Yes (Blood Cultures ) Stand-Alone Forms: My [facility] Nanoference, Smoking Cessation Medications and DC Order Prescriptions: New doxycycline hyclate 100 mg Capsule 100 mg PO BID Qty: 12 0RF cefdinir 300 mg capsule 300 mg PO UD Qty: 3 0RF Rx Instructions: Take on dialysis days 3 times a week after having the dialysis Continued atorvastatin 40 mg tablet 40 mg PO HS Qty: 30 0RF Liquacel 16 gram-100 kcal/30 mL Liquid In Metered-Dose Pump 30 ml PO [facility] losartan 50 mg Tablet 50 mg PO [facility] hydralazine 100 mg Tablet 100 mg PO TID isosorbide dinitrate 20 mg Tablet 20 mg PO TID sevelamer carbonate [Renvela] 800 mg Tablet 800 mg PO TIDM Rx Instructions: must administer with a meal/food acetaminophen 325 mg Tablet 650 mg PO Q4 PRN (Reason: Pain) metoprolol succinate 50 mg tablet extended release 24 hr 50 mg PO BID gabapentin 100 mg capsule 100 mg PO UD Rx Instructions: take 1 capsule after dialysis on MONDAY/MONDAY/MONDAY Auryxia 210 mg iron tablet 1 - 2 tab PO UD Rx Instructions: 2 tablets with meals..1 tablet with snack fluticasone propionate 50 mcg/actuation spray,suspension 2 spray INTRANASAL QAM RenaPlex 800 mcg- 12.5 mg Tablet 1 tab PO DAILY Advanced Probiotic 625 mg (10 billion cell) capsule 1 cap PO DAILY ondansetron HCl 4 mg Tablet 4 mg PO Q8H PRN (Reason: NAUSEA/VOMITING) Veltassa 8.4 gram Powder In Packet 8.4 g PO Q OTHER DAY allopurinol 100 mg tablet 100 mg PO QAM Discharge Orders: Discharge Order (Routine); Ordered 01/18/24 Ordered By: Yung Lama Admission Data Admit Date/Time: 01/15/24 16:58 Attending Provider: Yung Lama Admit Provider: Robinson Sahu Primary Care Provider: Cisco Starkey Other Providers: Mitchell Brown; Robinson Sahu; Rita Munson
== END 2024-01-18 14:57 | disposition home or self-care (01) | DRG 189 ==
LOC: ED 12:25 → 1E 16:58 → SUATTDRO 16:58 → 1E 18:26 → 2W 01-17 21:01